=== PATIENT | female | born 1975 | race Caucasian/White ===

== ENCOUNTER 2020-08-13 23:06 | Emergency (ER) | payer BC, SELFPAY ==
[2020-08-13 23:30] VITALS: BP 151/87; PULSE 106; RESP 20; TEMP 36.4; O2SAT 98; BMI 20.5
--- NOTE | 2020-08-13 23:36 | PC.NURSE ---
at bedside for primary eval.
--- NOTE | 2020-08-13 23:38 | PC.NURSE ---
Pt clarifies that she does not wish to go to a detox, she wants to detox in the ER. Pt states Come on, I've done it before!!! Pt also reports having 3 nips in my purse. Security called for changeover.
--- NOTE | 2020-08-13 23:46 | PC.NURSE ---
This RN at bedside repeatedly reminding pt to wear her mask while she is in the ER in a lu bed. solid waste collector aware.
--- NOTE | 2020-08-14 00:07 | ED.ALCOHOL ---
HPI - Alcohol General Chief Complaint: ETOH/Substance Use Stated Complaint: etoh/detox Time Seen by Provider: 08/14/20 00:07 Source: patient Mode of arrival: ambulatory Limitations: no limitations History of Present Illness HPI narrative: history of alcohol abuse here drunk denies any suicidal been to detox multiple times complaint: alcohol intoxication Last drink: Hours (ago) Amount of alcohol consumed: unknown amount of [place] Chronic alcohol use: Yes Previous visits for alcohol intoxication: Yes Recent trauma: No Associated symptoms: denies other symptoms Treatments prior to arrival: none Related Data Allergies Allergy/AdvReac Type Severity Reaction Status Date / Time No Known Allergies Allergy Unverified 07/17/20 15:46 [No Known Allergies*] Review of Systems Review of Systems: REVIEW OF SYSTEMS: Pertinent positives and negatives are stated above in the history. GEN: no fevers, chills, fatigue HEENT: no nasal congestion, sore throat, ear pain NEURO: no headache, dizziness, focal weakness PULM: no cough, shortness of breath CV: no chest pain, palpitations, LE edema ABD: no abdominal pain, nausea, vomiting, diarrhea : no dysuria, urgency, frequency SKIN: no rash ROS otherwise negative x 10 PMFSH Past Medical History Medical History Alcoholic cirrhosis Anxiety Depression Social History Social History Advance Directives: No Advance Directives Information Provided: No Physical Exam Vital Signs: Vital Signs: Vital Signs Temp Pulse Resp BP Pulse Ox 08/13/20 23:30 97.5 F 106 H 20 151/87 H 98 Body Mass Index 20.5 Appearance: Alert. Oriented X3. No acute distress. Eyes: Pupils equal, round and reactive to light. etoh+ ENT: Pharynx normal. Neck: Normal inspection. Neck supple. CVS: Normal heart rate and rhythm. Pulses normal. Respiratory: No respiratory distress. Breath sounds normal. Abdomen: Soft and nontender. Skin: Skin warm and dry. Normal skin color. Normal skin turgor. Extremities: No lower extremity edema. Good range of movement Neuro: Oriented X 3. No motor deficit. No sensory deficit. Course Course Course Narrative: patient intoxicated but able to ambulate in a steady gait refuse any detox placement at this time will go home and follow-up as outpatient Discharge Plan Discharge Clinical Impression: Alcoholic intoxication Patient Disposition: Home, Self-Care Instructions: Abuse of Alcohol (ED) Additional Instructions: follow-up with detox
--- NOTE | 2020-08-14 00:29 | PC.NURSE ---
Pt requesting DC, ambulating to the bathroom with a steady gait. This RN and MD explaining to pt that she cannot detox in the ED. Pt offered detox facilities multiple times but states I've been to all of them, I've done everything! This RN and extension supervisor Pat repeatedly explaining the plan to pt. Pt requesting a RX for Librium. This RN adn extension supervisor Pat explaining to pt that withdrawals and Librium need to be closely monitored in a detox facility. Pt remains unwilling to go to detox. Pt advised to return to the ED if she is agreeable to detox placement. Pt provided with DC instructions.
== END 2020-08-14 00:34 | disposition home or self-care (01) ==
PROVIDERS: Emergency Provider Internal Medicine; PCP Internal Medicine
DX: F10.129 Alcohol abuse with intoxication, unspecified (principal); Y90.9 Presence of alcohol in blood, level not specified
CPT/HCPCS: 99283

== ENCOUNTER → 2020-08-27 08:37 | Outpatient (BNVA) | payer BC, MEDICARE, SELFPAY | PROVIDERS: PCP Internal Medicine; Referring Provider Internal Medicine; Visit Provider Internal Medicine Gastroenterology | DX: K76.9 Liver disease, unspecified (principal); F10.10 Alcohol abuse, uncomplicated; F12.90 Cannabis use, unspecified, uncomplicated; F41.9 Anxiety disorder, unspecified; F17.210 Nicotine dependence, cigarettes, uncomplicated ==

== ENCOUNTER → 2020-10-08 09:02 | Outpatient (BNVA) | payer BC, MEDICARE, SELFPAY | PROVIDERS: PCP Internal Medicine; Referring Provider Internal Medicine; Visit Provider Internal Medicine Gastroenterology | DX: K76.9 Liver disease, unspecified (principal); F41.9 Anxiety disorder, unspecified; F17.200 Nicotine dependence, unspecified, uncomplicated; F12.90 Cannabis use, unspecified, uncomplicated; F10.10 Alcohol abuse, uncomplicated | CPT/HCPCS: 80305; 90686 ==

== ENCOUNTER → 2020-10-22 11:35 | Outpatient (BNVA) | payer BC, MEDICARE, SELFPAY | PROVIDERS: Visit Provider Internal Medicine | DX: Z76.89 Persons encountering health services in other specified circumstances (principal) ==

== ENCOUNTER 2020-11-04 13:27 | Outpatient (REF) | payer BC, MEDICARE, SELFPAY ==
[2020-11-04 14:15] LABS: MANUAL DIFF FLAG NO
[2020-11-04 14:21] LABS: Basophils Absolute Auto 0.1 X10*3/uL (0.0-0.2); Basophils Percent Auto 1.1 % (0-2); Eosinophils Absolute Auto 0.6 X10*3/uL (0.0-0.4); Eosinophils Percent Auto 6.8 % (0-4); Hematocrit 42.4 % (37-47); Hemoglobin 14.1 g/dl (12.0-16.0); Imm Gran Abs Auto 0.02 X10*3/uL (0.00-0.03); Imm Gran Pct Auto 0.2 % (0.0-0.4); Lymphocytes Percent Auto 35.9 % (20-40); Mean Corpuscular HGB Conc 33.3 g/dl (31.0-35.0); Mean Corpuscular Hemoglobin 31.8 pg (27.0-33.0); Mean Corpuscular Volume 95.5 fL (80-98); Mean Platelet Volume 10.8 fL (9.4-12.3); Monocytes Absolute Auto 0.5 X10*3/uL (0.1-1.2); Monocytes Percent Auto 6.3 % (2-11); Neutrophils Absolute Auto 4.1 X10*3/uL (2.0-8.3); Neutrophils Percent Auto 49.7 % (45-73); Platelet Count 259 X10*3/uL (160-400); Red Blood Count 4.44 X10*6/uL (4.20-5.50); White Blood Count 8.3 X10*3/uL (4.8-10.8)
[2020-11-04 14:30] LABS: Prothrombin Time 11.7 SEC (10.8-13.0)
[2020-11-04 14:52] LABS: Alanine Aminotransferase 18 U/L (0-31); Albumin Level 4.6 g/dL (3.5-5.0); Alkaline Phosphatase 123 U/L (39-117); Anion Gap 18 (12-20); Aspartate Amino Transferase 26 U/L (5-31); Bilirubin Total 0.3 mg/dL (0.0-1.0); Blood Urea Nitrogen 12 mg/dL (9-16); Calcium 9.9 mg/dL (8.4-10.2); Carbon Dioxide 28 mmol/L (22-29); Chloride 99 mmol/L (96-108); Estimated Glomerular Filt Rate > 60; Gamma Glutamyl Transpeptidase 46 U/L (7-33); Glucose Random 102 mg/dL (60-115); Magnesium 2.1 mg/dL (1.6-2.6); Potassium 4.5 mmol/l (3.3-5.1); Sodium 140 mmol/L (135-145); Total Protein 8.3 g/dL (6.5-8.0)
[2020-11-04 15:12] LABS: Vitamin D 25-OH Total 45.8 ng/mL (>30)
[2020-11-09 10:23] LABS: Vitamin B1 13 nmol/L (8-30)
== END 2020-11-04 13:28 | disposition home or self-care (01) ==
LOC: HO.LAB 13:27
PROVIDERS: PCP Internal Medicine; Visit Provider Internal Medicine Gastroenterology
DX: K76.9 Liver disease, unspecified (principal); F10.10 Alcohol abuse, uncomplicated
CPT/HCPCS: 36415; 80053; 82306; 82977; 83735; 84425; 85025; 85610

== ENCOUNTER → 2020-11-06 10:23 | Outpatient (BNVA) | payer BC, MEDICARE, SELFPAY | PROVIDERS: Visit Provider Internal Medicine | DX: F10.20 Alcohol dependence, uncomplicated (principal) | CPT/HCPCS: 80305; 96372 ==

== ENCOUNTER → 2020-11-20 10:11 | Outpatient (BNVA) | payer BC, MEDICARE, SELFPAY | PROVIDERS: Visit Provider Nurse Practitioner Psychiatric/Mental Health | DX: Z51.81 Encounter for therapeutic drug level monitoring (principal) ==

== ENCOUNTER → 2020-12-05 12:58 | Outpatient (BNVA) | payer BC, SELFPAY | PROVIDERS: Visit Provider Internal Medicine | DX: F10.10 Alcohol abuse, uncomplicated (principal) | CPT/HCPCS: 80305; 96372 ==

== ENCOUNTER 2020-12-18 08:43 | Outpatient (REF) | payer BC, SELFPAY | END 2020-12-18 08:44 | disposition home or self-care (01) | LOC: HO.LAB 08:43 | PROVIDERS: PCP Internal Medicine; Visit Provider Internal Medicine | DX: Z20.822 Contact with and (suspected) exposure to COVID-19 (principal) | CPT/HCPCS: 36415; C9803; U0003; U0005 ==

== ENCOUNTER → 2021-01-07 11:20 | Outpatient (BNVA) | payer BC, SELFPAY | PROVIDERS: PCP Internal Medicine; Visit Provider Internal Medicine | DX: F11.99 Opioid use, unspecified with unspecified opioid-induced disorder (principal); Z51.81 Encounter for therapeutic drug level monitoring; Z79.899 Other long term (current) drug therapy | CPT/HCPCS: 80305; 96372 ==

== ENCOUNTER 2021-01-12 12:43 | Outpatient (REF) | payer BC, SELFPAY ==
--- NOTE | ~2021-01-12 | XR_ITS ---
EXAMINATION: XR ANKLE, LEFT CLINICAL INFORMATION: Pain COMPARISON: None TECHNIQUE: AP, lateral, and mortise views of the left ankle. FINDINGS: Bone alignment is normal. No fracture or dislocation is seen. The ankle mortise is normal. There is lateral soft tissue swelling. XR/XR ankle LT min 3V IMPRESSION: Lateral soft tissue swelling. No fracture or dislocation seen.
== END 2021-01-12 12:44 | disposition home or self-care (01) ==
LOC: HO.HMGCX 12:43
PROVIDERS: PCP Internal Medicine; Visit Provider Hospitalist
DX: M25.572 Pain in left ankle and joints of left foot (principal)
CPT/HCPCS: 73610

== ENCOUNTER → 2021-02-18 09:23 | Outpatient (BNVA) | payer BC, SELFPAY | PROVIDERS: Visit Provider Internal Medicine | DX: Z51.81 Encounter for therapeutic drug level monitoring (principal); F10.10 Alcohol abuse, uncomplicated | CPT/HCPCS: 80305; 96372 ==

== ENCOUNTER → 2021-03-18 11:17 | Outpatient (BNVA) | payer BC, SELFPAY | PROVIDERS: Visit Provider Internal Medicine | DX: F10.21 Alcohol dependence, in remission (principal) | CPT/HCPCS: 96372 ==

== ENCOUNTER 2021-03-23 08:53 | Outpatient (REF) | payer BC, SELFPAY ==
--- NOTE | ~2021-03-23 | US_ITS ---
EXAMINATION: US ABDOMEN LIMITED CLINICAL INFORMATION: Liver disease, unspecified. COMPARISON: CT abdomen and pelvis with contrast dated 11/28/2017. Ultrasound abdomen complete dated 04/08/2016 and 12/05/2014. MR abdomen without and with contrast dated 02/26/2015. X-ray abdomen dated 01/31/2015. TECHNIQUE: Real-time imaging of the right upper quadrant abdominal viscera. FINDINGS: PANCREAS: The head and body the pancreas are normal. The tail is not well visualized due to bowel gas. LIVER: Liver echotexture is increased and slightly heterogeneous suggestive of hepatocellular disease. The contour of the liver is slightly irregular questionable for mild cirrhotic change. No focal hepatic lesion. There is no intrahepatic biliary duct dilatation seen. GALLBLADDER: Normal. The gallbladder is physiologically distended without evidence of stones, sludge, polyps, wall thickening or pericholecystic fluid. COMMON BILE DUCT: Normal in caliber measuring 0.3 cm in diameter. RIGHT KIDNEY: Normal. No hydronephrosis. No renal calculi or focal parenchymal lesions. The kidney measures 9.8 cm in maximum dimension. FREE FLUID: None. US/US abdomen limited IMPRESSION: Mild cirrhotic changes of the liver. Limited visualization of the tail the pancreas.
== END 2021-03-23 08:54 | disposition home or self-care (01) ==
LOC: HO.US 08:53
PROVIDERS: PCP Pediatrics Adolescent Medicine; Visit Provider Internal Medicine Gastroenterology
DX: K76.9 Liver disease, unspecified (principal)
CPT/HCPCS: 76705

== ENCOUNTER → 2021-04-06 09:35 | Outpatient (BNVA) | payer BC, SELFPAY | PROVIDERS: PCP Internal Medicine; Visit Provider Internal Medicine Gastroenterology ==

== ENCOUNTER 2021-04-08 11:40 | Outpatient (REF) | payer BC, SELFPAY ==
[2021-04-08 12:25] LABS: MANUAL DIFF FLAG NO
[2021-04-08 12:26] LABS: Basophils Absolute Auto 0.1 X10*3/uL (0.0-0.2); Basophils Percent Auto 0.7 % (0-2); Eosinophils Absolute Auto 0.3 X10*3/uL (0.0-0.4); Hematocrit 39.2 % (37-47); Imm Gran Abs Auto 0.03 X10*3/uL (0.00-0.03); Imm Gran Pct Auto 0.4 % (0.0-0.4); Lymphocytes Absolute Auto 2.9 X10*3/uL (1.2-4.9); Lymphocytes Percent Auto 35.8 % (20-40); Mean Corpuscular HGB Conc 33.2 g/dl (31.0-35.0); Mean Corpuscular Hemoglobin 33.2 pg (27.0-33.0); Monocytes Absolute Auto 0.5 X10*3/uL (0.1-1.2); Monocytes Percent Auto 6.7 % (2-11); Neutrophils Absolute Auto 4.2 X10*3/uL (2.0-8.3); Neutrophils Percent Auto 52.4 % (45-73); Platelet Count 202 X10*3/uL (160-400); Red Blood Count 3.92 X10*6/uL (4.20-5.50); Red Cell Distribution Width 12.8 % (11.0-16.0); White Blood Count 8.1 X10*3/uL (4.8-10.8)
[2021-04-08 12:32] LABS: Prothrombin Time 12.3 SEC (10.8-13.0)
[2021-04-08 13:00] LABS: Alanine Aminotransferase 17 U/L (0-31); Albumin Level 4.2 g/dL (3.5-5.0); Alkaline Phosphatase 106 U/L (39-117); Anion Gap 12 (12-20); Aspartate Amino Transferase 23 U/L (5-31); Bilirubin Total 0.2 mg/dL (0.0-1.0); Blood Urea Nitrogen 17 mg/dL (9-16); Calcium 9.5 mg/dL (8.4-10.2); Carbon Dioxide 22 mmol/L (22-29); Chloride 107 mmol/L (96-108); Cholesterol 266 mg/dL; Estimated Glomerular Filt Rate > 60; Glucose Random 85 mg/dL (60-115); HDL Cholesterol 49 mg/dL; LDL Cholesterol Calculated 187 mg/dl; Potassium 3.8 mmol/L (3.3-5.1); Sodium 137 mmol/L (135-145); Total Protein 7.1 g/dL (6.5-8.0); Triglycerides 153 mg/dL
[2021-04-08 13:19] LABS: HBS Num1 0.29 mIU/mL (0-7.99); Hepatitis A Antibody IgM 0.22 Index (0-0.79); ~Hepatitis A Antibody IgM Nonreactive (Nonreactive); ~Hepatitis B Surface Antibody NONREACTIVE (Nonreactive)
[2021-04-08 13:24] LABS: TSH reflex Free T4 0.73 uIU/mL (0.32-4.0); Vitamin D 25-OH Total 38.8 ng/mL (>30)
[2021-04-08 13:36] LABS: Folate 10.6 ng/mL (> or = 4.0); Vitamin B12 640 pg/mL (200-900)
[2021-04-08 13:50] LABS: HBc Num1 0.07 S/CO (0.00-0.79); HBsAGNum1 0.24 S/CO (0.00-0.99); Hepatitis B Core Antibody Nonreactive (Nonreactive); Hepatitis B Surface Antigen Negative (Negative); ~HepC Num1 0.08 S/CO (0.00-0.79); ~Hepatitis C Antibody Nonreactive (Nonreactive)
[2021-04-08 14:36] LABS: Ferritin 25 ng/mL (10-250)
[2021-04-09 18:26] LABS: Alpha 1 Anti-trypsin 140 mg/dL (83-199)
[2021-04-09 21:16] LABS: Immunoglobulin G 1128 mg/dL (600-1640)
[2021-04-10 12:16] LABS: Anti Nuclear Antibody Screen NEGATIVE (NEGATIVE)
[2021-04-11 07:17] LABS: Zinc 66 mcg/dL (60-130)
[2021-04-11 13:46] LABS: Soluble Liver Ag Autoantibody <20.1 U (0.0-20.0)
[2021-04-11 13:46] LABS: Vitamin B6 7.1 ng/mL (2.1-21.7)
[2021-04-11 20:57] LABS: Vitamin K1 557 pg/mL (130-1500)
[2021-04-11 23:02] LABS: Vitamin C 0.8 mg/dL (0.3-2.7)
[2021-04-13 13:26] LABS: Transglutaminase Ab IgG 1 U/mL; Transglutaminase IgA 1 U/mL
[2021-04-13 15:27] LABS: Vitamin A 49 mcg/dL (38-98)
[2021-04-13 15:27] LABS: Alpha-Tocopherol 22.1 mg/L (5.7-19.9); Beta-Gamma Tocopherol 1.3 mg/L (<=4.3); Vitamin B5 (Pantothenic Acid) 40 ng/mL (<275)
[2021-04-13 15:52] LABS: Mitochondrial Antibodies NEGATIVE (NEGATIVE)
[2021-04-13 17:32] LABS: Nicotinamide <20 ng/mL; Vit B3 - Nicotinic Acid <20 ng/mL
[2021-04-13 22:22] LABS: Smooth Muscle Antibody <20 U (<20)
== END 2021-04-08 11:41 | disposition home or self-care (01) ==
LOC: HO.LAB 11:40
PROVIDERS: PCP Internal Medicine; Visit Provider Internal Medicine Gastroenterology
DX: F10.10 Alcohol abuse, uncomplicated (principal); K76.9 Liver disease, unspecified; G89.29 Other chronic pain; R10.33 Periumbilical pain; R79.82 Elevated C-reactive protein (CRP); K75.81 Nonalcoholic steatohepatitis (NASH); K52.839 Microscopic colitis, unspecified
CPT/HCPCS: 36415; 80053; 80061; 82103; 82180; 82306; 82550; 82607; 82728; 82746; 82784; 83516; 83520; 84207; 84443; 84446; 84590; 84591; 84597; 84630; 85025; 85610; 86038; 86039; 86255; 86256; 86704; 86706; 86709; 86803; 87340

== ENCOUNTER 2021-05-01 11:14 | Outpatient (REF) | payer BC, SELFPAY ==
[2021-05-01 13:14] LABS: Fibrinogen 440 MG/DL (259-690); INTERNATIONAL NORM RATIO 0.9 (0.9-1.1); Prothrombin Time 10.7 SEC (9.9-13.0)
[2021-05-01 13:16] LABS: Partial Thromboplastin Time 37.1 SEC (24.1-38.0)
== END 2021-05-01 11:15 | disposition home or self-care (01) ==
LOC: HO.LAB 11:14
PROVIDERS: PCP Internal Medicine; Visit Provider Internal Medicine
DX: R23.8 Other skin changes (principal)
CPT/HCPCS: 36415; 85384; 85610; 85730

== ENCOUNTER 2021-05-17 21:05 | Emergency (ER) | payer BC, SELFPAY ==
[2021-05-17 21:25] VITALS: BP 170/90; PULSE 121; O2SAT 95
[2021-05-17 21:37] VITALS: BP 131/86; PULSE 103; RESP 16; TEMP 36.6; O2SAT 97; BMI 19.7
--- NOTE | 2021-05-17 21:40 | PC.NURSE ---
This nurse witnessed leave facility with three pill bottles: b-1, xanax and fluoxetine
--- NOTE | 2021-05-17 21:46 | ED.GENADULT ---
HPI - General Adult General Chief complaint: Overdose Stated complaint: etoh Time Seen by Provider: 05/17/21 21:45 Source: patient Mode of arrival: EMS History of Present Illness HPI narrative: 45-year-old female with liver disease and history of alcohol dependence is brought in by EMS after patient states that she took 10 Flexeril pills, 4 -1 mg diazepam, and 3 Prozac during attention to the fact that she needs detox from alcohol. Patient states that she was 5 years sober and then began drinking again approximately 1 year ago and has been in a detox program last April but since that time states that she consistently consumes 10-12 minutes daily, occasional marijuana, but denies any other illicit substance use and is a daily smoker. She denies being suicidal and does report that she has had prior seizures and hallucinations from attempting to detox on her own. She is unable to identify a specific event that has prompted this drive for detox other than she feels like she is beginning to develop ascites as well as easy bruising. Related Data Home Medications Medication Instructions Recorded Confirmed naltrexone microspheres 380 mg 380 mg IM Q4W 02/18/21 04/27/21 intramuscular suspension,extended release fluoxetine 20 mg capsule 20 mg PO DAILY 04/06/21 04/27/21 Previous Rx's Medication Instructions Recorded alprazolam 1 mg tablet 1 mg PO TID PRN 28 Days #86 tab 04/27/21 Allergies Allergy/AdvReac Type Severity Reaction Status Date / Time No Known Allergies Allergy Verified 05/17/21 21:42 [No Known Allergies*] Review of Systems Review of Systems: Pertinent positives and negatives as stated in HPI 10 point review of systems is otherwise negative. [facility] Past Medical History Source: nursing notes reviewed Medical History Alcohol abuse Alcohol use disorder Alcoholic cirrhosis Anxiety Anxiety Chronic liver disease Depression Easy bruising Marijuana smoker Tobacco use disorder Surgical History History of colonoscopy Hx of endoscopy Family History Family History Father No problems noted. Mother No problems noted. Social History Social History Housing: House Alcohol intake: current Alcohol intake frequency: 3 or more drinks per day Alcohol type: hard liquor Patient Tobacco Use Status: Current everyday Tobacco user Cigarettes Per Day: 12 Use of substances other than those prescribed or required for medical reasons: No Substance Use Type: Marijuana Advance Directives: No Advance Directives Information Provided: No Healthcare Proxy: Yes (On file in previous medical record, [facility]) Guardian: No Current occupational status: unemployed Physical Exam Vital Signs: Vital Signs: Last Vital Signs Temp 97.9 F 05/17/21 21:37 Pulse 103 H 05/17/21 21:37 Resp 16 05/17/21 21:37 BP 131/86 05/17/21 21:37 Pulse Ox 97 05/17/21 21:37 Body Mass Index 19.7 VITAL SIGNS: Reviewed. GENERAL: Well developed, well nourished, in no acute distress. HEAD: Normocephalic/atraumatic EYES: PERRLA, EOMI EARS: Ext canals without abnormality, no TM bulging/redness NOSE: Nares patent bilateral OROPHARYNX: no oral lesions noted, posterior pharynx with petechiae and appears to be some blood on the right NECK: Supple, + adenopathy at right anterior cervical chain LUNGS: Normal breath sounds. No adventitious sounds or accessory muscle use. SpO2<97> CARDIOVASCULAR: Regular rate and rhythm without noted murmurs, no JVD or lower extremity edema. ABDOMEN: Soft, non-tender, non-distended with bowel sounds. MUSCULOSKELETAL: No tenderness, deformities, or effusions noted on gross inspection. EXTREMITIES: No cyanosis, clubbing or edema. SKIN: Inspection of the skin reveals no rashes, but scattered ecchymoses NEUROLOGIC: Alert and oriented x 4. Strength and sensation to light touch were grossly intact x 4. Course Course Course Narrative: 45-year-old female with alcohol dependency. Patient is not suicidal and although she did take additional medications on pill counts completed by nursing staff there was limited corroboration. Review of all investigations negative for acute findings, LFTs consistent with patient's history of alcohol consumption, patient is otherwise medically optimized for evaluation by the crisis team. After crisis evaluated patient, it is thought after this evaluation that patient is low risk for suicidal ideation. The plan is for patient to be evaluated in the morning for inpatient placement. Reevaluation(s) Reevaluation #1: Patient placed in physician observation because the patient needed more time for crisis evaluation. At the time observation was started the patient's vital signs were stable, patient is alert and oriented, neuro: Nonfocal, CV RRR, lungs clear Time: 00:02 Medical Decision Making Lab Data Result diagrams: 05/17/21 22:10 05/17/21 22:10 Labs: Lab Results 05/17/21 05/17/21 05/17/21 Range/Units 22:10 22:10 22:10 WBC 8.2 (4.8-10.8) X10*3/uL RBC 3.84 L (4.20-5.50) X10*6/uL Hgb 13.1 (12.0-16.0) g/dl Hct 38.0 (37-47) % MCV 99.0 H (80-98) fL MCH 34.1 H (27.0-33.0) pg MCHC 34.5 (31.0-35.0) g/dl RDW 15.0 (11.0-16.0) % Plt Count 221 (160-400) X10*3/uL MPV 10.4 (9.4-12.3) fL Immature Gran % (Auto) 0.5 H (0.0-0.4) % Neut % (Auto) 50.0 (45-73) % Lymph % (Auto) 38.1 (20-40) % [place] % (Auto) 6.4 (2-11) % Eos % (Auto) 4.0 (0-4) % Baso % (Auto) 1.0 (0-2) % Lymph # (Auto) 3.1 (1.2-4.9) X10*3/uL [place] # (Auto) 0.5 (0.1-1.2) X10*3/uL Eos # (Auto) 0.3 (0.0-0.4) X10*3/uL Baso # (Auto) 0.1 (0.0-0.2) X10*3/uL Abs Immat Gran (auto) 0.04 H (0.00-0.03) X10*3/uL Absolute Neuts (auto) 4.1 (2.0-8.3) X10*3/uL Absolute Nucleated RBC 0.000 (0.0-0.012) X10*3/uL Nucleated RBC % (auto) 0.0 (0.0-0.2) /100WBC PT 10.8 (9.9-13.0) SEC INR 1.0 (0.9-1.1) Sodium 146 H (135-145) mmol/L Potassium 4.0 (3.3-5.1) mmol/L Chloride 109 H (96-108) mmol/L Carbon Dioxide 27 (22-29) mmol/L Anion Gap 14 (12-20) BUN 16 (9-16) mg/dL Creatinine 0.91 (0.5-1.4) mg/dL Estim Creat Clear Calc 62.9 Estimated GFR > 60 Random Glucose 97 (60-115) mg/dL Calcium 9.6 (8.4-10.2) mg/dL Magnesium (1.6-2.6) mg/dL Total Bilirubin 0.2 (0.0-1.0) mg/dL AST 151 H (5-31) U/L ALT 118 H (0-31) U/L Alkaline Phosphatase 168 H D (39-117) U/L Total Protein 8.3 H (6.5-8.0) g/dL Albumin 4.8 (3.5-5.0) g/dL Ethyl Alcohol mg/dL COVID-19 (ANTONIO) (Negative) COVID-19 Clin Com S. pyogenes GrpA DAYANARA (Negative) 05/17/21 05/17/21 05/17/21 Range/Units 22:10 22:10 23:55 WBC (4.8-10.8) X10*3/uL RBC (4.20-5.50) X10*6/uL Hgb (12.0-16.0) g/dl Hct (37-47) % MCV (80-98) fL MCH (27.0-33.0) pg MCHC (31.0-35.0) g/dl RDW (11.0-16.0) % Plt Count (160-400) X10*3/uL MPV (9.4-12.3) fL Immature Gran % (Auto) (0.0-0.4) % Neut % (Auto) (45-73) % Lymph % (Auto) (20-40) % [place] % (Auto) (2-11) % Eos % (Auto) (0-4) % Baso % (Auto) (0-2) % Lymph # (Auto) (1.2-4.9) X10*3/uL [place] # (Auto) (0.1-1.2) X10*3/uL Eos # (Auto) (0.0-0.4) X10*3/uL Baso # (Auto) (0.0-0.2) X10*3/uL Abs Immat Gran (auto) (0.00-0.03) X10*3/uL Absolute Neuts (auto) (2.0-8.3) X10*3/uL Absolute Nucleated RBC (0.0-0.012) X10*3/uL Nucleated RBC % (auto) (0.0-0.2) /100WBC PT (9.9-13.0) SEC INR (0.9-1.1) Sodium (135-145) mmol/L Potassium (3.3-5.1) mmol/L Chloride (96-108) mmol/L Carbon Dioxide (22-29) mmol/L Anion Gap (12-20) BUN (9-16) mg/dL Creatinine (0.5-1.4) mg/dL Estim Creat Clear Calc Estimated GFR Random Glucose (60-115) mg/dL Calcium (8.4-10.2) mg/dL Magnesium 2.2 (1.6-2.6) mg/dL Total Bilirubin (0.0-1.0) mg/dL AST (5-31) U/L ALT (0-31) U/L Alkaline Phosphatase (39-117) U/L Total Protein (6.5-8.0) g/dL Albumin (3.5-5.0) g/dL Ethyl Alcohol 248 mg/dL COVID-19 (ANTONIO) (Negative) COVID-19 Clin Com S. pyogenes GrpA DAYANARA Negative (Negative) 05/17/21 Range/Units 23:55 WBC (4.8-10.8) X10*3/uL RBC (4.20-5.50) X10*6/uL Hgb (12.0-16.0) g/dl Hct (37-47) % MCV (80-98) fL MCH (27.0-33.0) pg MCHC (31.0-35.0) g/dl RDW (11.0-16.0) % Plt Count (160-400) X10*3/uL MPV (9.4-12.3) fL Immature Gran % (Auto) (0.0-0.4) % Neut % (Auto) (45-73) % Lymph % (Auto) (20-40) % [place] % (Auto) (2-11) % Eos % (Auto) (0-4) % Baso % (Auto) (0-2) % Lymph # (Auto) (1.2-4.9) X10*3/uL [place] # (Auto) (0.1-1.2) X10*3/uL Eos # (Auto) (0.0-0.4) X10*3/uL Baso # (Auto) (0.0-0.2) X10*3/uL Abs Immat Gran (auto) (0.00-0.03) X10*3/uL Absolute Neuts (auto) (2.0-8.3) X10*3/uL Absolute Nucleated RBC (0.0-0.012) X10*3/uL Nucleated RBC % (auto) (0.0-0.2) /100WBC PT (9.9-13.0) SEC INR (0.9-1.1) Sodium (135-145) mmol/L Potassium (3.3-5.1) mmol/L Chloride (96-108) mmol/L Carbon Dioxide (22-29) mmol/L Anion Gap (12-20) BUN (9-16) mg/dL Creatinine (0.5-1.4) mg/dL Estim Creat Clear Calc Estimated GFR Random Glucose (60-115) mg/dL Calcium (8.4-10.2) mg/dL Magnesium (1.6-2.6) mg/dL Total Bilirubin (0.0-1.0) mg/dL AST (5-31) U/L ALT (0-31) U/L Alkaline Phosphatase (39-117) U/L Total Protein (6.5-8.0) g/dL Albumin (3.5-5.0) g/dL Ethyl Alcohol mg/dL COVID-19 (ANTONIO) Negative (Negative) COVID-19 Clin Com See Note S. pyogenes GrpA DAYANARA (Negative) ECG Data Attestation: I personally reviewed and interpreted this ECG as follows: Prior ECG tracings: available for review (12/09/2017 no acute changes on comparison) Interpretation: Sinus tachycardia, HR-108, no STEMI, SC/QRS/QTC are within normal limits. Discharge Plan Discharge Prescriptions: No Action alprazolam 1 mg tablet 1 mg PO TID PRN (Reason: anxiety) 28 Days Qty: 86 RF: 0 Vivitrol 380 mg suspension,extended rel recon 380 mg IM Q4W RF: 0 fluoxetine 20 mg capsule 20 mg PO DAILY RF: 0
--- NOTE | 2021-05-17 21:47 | ECG_ITS ---
Test Reason : OVERDOSE Blood Pressure : / mmHG Vent. Rate : 108 BPM Atrial Rate : 108 BPM P-R Int : 180 ms QRS Dur : 072 ms QT Int : 314 ms P-R-T Axes : 066 009 049 degrees QTc Int : 420 ms Sinus tachycardia Normal ECG When compared with ECG of 09-DEC-2017 07:52, No significant change was found Referred By: Annalisa Darden Electronically Signed By:SIMONE PINTO MD
[2021-05-17 22:15] LABS: MANUAL DIFF FLAG NO
[2021-05-17 22:16] LABS: Basophils Absolute Auto 0.1 X10*3/uL (0.0-0.2); Eosinophils Absolute Auto 0.3 X10*3/uL (0.0-0.4); Hemoglobin 13.1 g/dl (12.0-16.0); Imm Gran Abs Auto 0.04 X10*3/uL (0.00-0.03); Imm Gran Pct Auto 0.5 % (0.0-0.4); Lymphocytes Absolute Auto 3.1 X10*3/uL (1.2-4.9); Lymphocytes Percent Auto 38.1 % (20-40); Mean Corpuscular HGB Conc 34.5 g/dl (31.0-35.0); Mean Corpuscular Hemoglobin 34.1 pg (27.0-33.0); Mean Platelet Volume 10.4 fL (9.4-12.3); Monocytes Absolute Auto 0.5 X10*3/uL (0.1-1.2); Monocytes Percent Auto 6.4 % (2-11); Neutrophils Absolute Auto 4.1 X10*3/uL (2.0-8.3); Platelet Count 221 X10*3/uL (160-400); Red Blood Count 3.84 X10*6/uL (4.20-5.50); White Blood Count 8.2 X10*3/uL (4.8-10.8)
[2021-05-17 22:27] LABS: Prothrombin Time 10.8 SEC (9.9-13.0)
[2021-05-17 22:48] LABS: Ethanol 248 mg/dL
[2021-05-17 22:49] LABS: Magnesium 2.2 mg/dL (1.6-2.6)
[2021-05-17 22:52] LABS: Alanine Aminotransferase 118 U/L (0-31); Albumin Level 4.8 g/dL (3.5-5.0); Alkaline Phosphatase 168 U/L (39-117); Anion Gap 14 (12-20); Aspartate Amino Transferase 151 U/L (5-31); Bilirubin Total 0.2 mg/dL (0.0-1.0); Blood Urea Nitrogen 16 mg/dL (9-16); Calcium 9.6 mg/dL (8.4-10.2); Carbon Dioxide 27 mmol/L (22-29); Chloride 109 mmol/L (96-108); Creatinine Clr Calc Pharmacy 62.9; Estimated Glomerular Filt Rate > 60; Glucose Random 97 mg/dL (60-115); Sodium 146 mmol/L (135-145); Total Protein 8.3 g/dL (6.5-8.0)
--- NOTE | 2021-05-17 22:55 | MHC.CARE ---
CARE team consult received. Given the nature of pt's arrival to the ED, she will require a full behavioral health evaluation. BAL is 248 at 2210. Pt is a long time drinker and given this information, this singer songwriter will meet with pt to complete assessment ~1:30am. Message left for pt's to obtain background and present concerns. Chart reviewed, assessment started.
--- NOTE | 2021-05-17 23:02 | PC.NURSE ---
PATIENT'S SHOWING UP IN THE WAITING ROOM, DEMANDING TO SEE HIS , THEN STATING I UNDERSTANDING I CAN'T SEE HERE RIGHT NOW BECAUSE YOU GUYS ARE DOING THINGS. I WILL COME BACK IN THE MORNING , THEN LOOKING AT THIS NURSES WHY THE FUCK ARE YOU KEEPING MY FROM ME I AM TAKING HER FROM HERE EXPLAINING THAT SHE CAN'T LEAVE AND NEEDS TO BE SEEN BY CRISIS. THEN LAUGHING STATING I GET IT SHE NEEDS TO SEE PEOPLE, I WILL COME BACK IN THE MORNING HANDING A PILL BOTTLE TO THIS RN, IT WAS FLEXIRIL WITH A FEW PILLS LEFT IN THE BOTTLE, TELLING THIS RN TO HOLD ON TO IT FOR HIM, STATING I CAN NOT HOLD ON TO PILLS FOR HIM. HANDING THE PILL BOTTLE BACK TO . STATING SHE JUST GOING TO WALK OUT EXPLAINING PROCEDURE FOR CRISIS, HE VERBALIZED UNDERSTANDING THEN STATING I AM TAKING HER NOW . AGAIN EXPLAINING PATIENT NEEDS TO BE MEDICALLY CLEARED AND HAVE A CRISIS EVAL. I WILL BE BACK IN THE MORNING , ASKING IF WANTING TO LEAVE HIS NUMBER, STATED YOU HAVE MY INSURANCE NUMBER AND HERS BUT I WILL GIVE IT TO YOU AGAIN STATING THAT WAS NOT NECESSARY. THEN ASKING WHAT STAFF WANTS FOR COFFEE IN THE AM. LEAVING THE WAITING ROOM AFTER ABOUT 15 MINUTES OF ARGUING THEN TANKING THIS NURSE BACK AND FORTH. DID NOT SEEM SOBER BASED ON HIS ODD BEHAVIOR.
--- NOTE | 2021-05-17 23:23 | PC.NURSE ---
plan for Lorna from CARE team to see patient at [phone]
[2021-05-18 00:11] LABS: Strep A Nucleic Acid Negative (Negative)
[2021-05-18 00:19] LABS: COVID-19 Test Negative (Negative); IDNOW Serial# 9DD0AD1C
[2021-05-18] MEDS: Throat Lozenge, Medicated LOZENGE 1 LOZENGE MUCOUS MEM (02:40)
[2021-05-18 05:22] VITALS: BP 113/66; PULSE 93; RESP 17; TEMP 38.1; O2SAT 96
[2021-05-18] MEDS: Acetaminophen 325 MG TABLET 650 MG PO (05:52)
[2021-05-18] MEDS: Acetaminophen 325 MG TABLET PO (05:52)
--- NOTE | 2021-05-18 06:30 | PC.NURSE ---
Pt asleep, this RN not waking patient at this time to reassess suicide risk as rest is most therapeutic at this time. additionally, pt denies SI for CARE team and was cleared from requiring a sitter for SI thoughts. Pt awaiting assistant women's tennis coach this AM. Pt RR even and unlabored, stretcher in low locked position.
--- NOTE | 2021-05-18 08:43 | MHC.RECOVSUP ---
Recovery Support note: Patient is a 45 year old Malian speaking female who presented to [facility] ED after intentionally taking numerous pills however this was not an overdose attempt. Patient reports she took the medications to get attention and to get into detox. Patient was evaluated by The CARE Team and it was determined that this patient does not require psychiatric services and would benefit most from detox. This leader writer met with patient in 6H to discussed alcohol use and treatment options. Patient is accompanied by her of 24 years. This leader writer offered to secure patient a detox bed and patient declined. Patient reports she felt like she needed to come to the hospital and now that she is here she feels she is ready to pursue outpatient options. Patient reports numerous detox admissions, completion of IOP programs, and is familiar with outpatient supports such as AA. This leader writer and ED physician encouraged patient to remain for detox patient and patient continues to decline. Encouraged patient to return to the ED if she begins to experience withdrawal symptoms. Patient acknowledged and reports no questions or concerns at this time.
== END 2021-05-18 09:59 | disposition home or self-care (01) ==
PROVIDERS: Emergency Provider Student in an Organized Health Care Education/Training Program; PCP Internal Medicine
DX: F10.20 Alcohol dependence, uncomplicated (principal); T48.1X1A Poisoning by skeletal muscle relaxants [neuromuscular blocking agents], accidental (unintentional), initial encounter; Y90.9 Presence of alcohol in blood, level not specified; F17.200 Nicotine dependence, unspecified, uncomplicated; Y92.009 Unspecified place in unspecified non-institutional (private) residence as the place of occurrence of the external cause; Z71.6 Tobacco abuse counseling; Z20.822 Contact with and (suspected) exposure to COVID-19; Z79.899 Other long term (current) drug therapy; F12.90 Cannabis use, unspecified, uncomplicated
CPT/HCPCS: 36415; 80053; 82077; 83735; 85025; 85610; 87635; 87651; 93005; 99285

== ENCOUNTER → 2021-08-11 09:09 | Outpatient (BNVA) | payer OTHER, BC, SELFPAY | PROVIDERS: PCP Internal Medicine; Referring Provider Internal Medicine; Visit Provider Internal Medicine Gastroenterology | DX: Z23 Encounter for immunization (principal); K70.30 Alcoholic cirrhosis of liver without ascites; N39.41 Urge incontinence | CPT/HCPCS: 90471; 90472 ==

== ENCOUNTER 2021-08-12 08:27 | Outpatient (RCR) | payer OTHER, SELFPAY | END 2021-08-12 08:28 | disposition home or self-care (01) | LOC: HO.PHPA 08:27 | PROVIDERS: PCP Internal Medicine; Visit Provider Psychiatry & Neurology Psychiatry | DX: F32.9 Major depressive disorder, single episode, unspecified (principal); F41.9 Anxiety disorder, unspecified ==

== ENCOUNTER 2021-09-10 09:38 | Outpatient (REF) | payer OTHER, SELFPAY ==
--- NOTE | ~2021-09-10 | US_ITS ---
EXAMINATION: US ABDOMEN LIMITED WITH LIVER ELASTOGRAPHY CLINICAL INFORMATION: R14.0 - Abdominal distension (gaseous). Prior history unspecified liver disease. COMPARISON: Ultrasound abdomen limited 03/23/2021, ultrasound abdomen complete with elastography liver 07/09/2020 and 11/22/2018. CT abdomen and pelvis with contrast 11/28/2017 TECHNIQUE: Real-time imaging of the abdominal viscera. Noninvasive ultrasound liver fibrosis assessment is performed using Stalin ElastPQ point quantification shear wave elastography (pSWE) with a C5-2 MHz transducer. Multiple elastography samples are obtained. FINDINGS: PANCREAS: The visualized pancreas is normal in size and echogenicity. There is no pancreatic ductal distention or retroperitoneal effusion. The distal body and tail are partly obscured by bowel gas and not completely imaged. LIVER: The liver is normal in size and smooth in contour. The echogenicity appears homogeneous with no focal parenchymal lesion or definite hepatic steatosis. No intrahepatic ductal dilatation. The right lobe measures 16.0 cm in length. The left lobe measures 8.4 cm in length. Portal flow is towards the liver (hepatopetal). Shear wave liver elastography median stiffness is 1.39 m/s (reference: normal median stiffness is 1.3 m/s or less). IQR/median stiffness to assess sampling precision is 0.22 (reference: good quality data set is IQR/median stiffness of 0.15 or less). By comparison, prior liver elastography median stiffness 07/09/2020 is 1.22 m/s (IQR/median 0.72). GALLBLADDER: Normal. The gallbladder is physiologically distended without evidence of stones, sludge, polyps, wall thickening or pericholecystic fluid. COMMON BILE DUCT: Normal in caliber measuring 0.4 cm in diameter. RIGHT KIDNEY: Normal. No hydronephrosis. No focal parenchymal lesions. The kidney measures 10.1 cm in maximum dimension. There are scattered specular echoes in the sinus but without shadowing or twinkling artifact to suggest nonobstructing calculi. FREE FLUID: None. US/US abdomen szymanski w elastography IMPRESSION: 1. Liver normal in size and smooth in contour. No focal parenchymal lesion. Portal flow towards the liver. 2. Liver elastography: Although measurements appear to rule out compensated advanced chronic liver disease, there is mild statistical variability of the sampling which decreases accuracy. 3. No cholelithiasis or ductal dilatation. REFERENCE: Society of Radiologists in Ultrasound Liver Stiffness Thresholds (2020): LIVER STIFFNESS THRESHOLDS: *Liver Stiffness equal or less than 1.3 m/s: High probability of being normal. *Liver Stiffness less than 1.7 m/s: In the absence of other known clinical signs, rules out compensated advanced chronic liver disease. *Liver Stiffness 1.7-2.1 m/s: Suggestive of compensated advanced chronic liver disease but need further test for confirmation. *Liver Stiffness over 2.1 m/s: Rules in compensated advanced chronic liver disease. *Liver Stiffness over 2.4 m/s: Suggestive of clinically significant portal hypertension. QUALITY OF DATA SET: *IQR/Median value equal or less than 0.15 implies a quality data set. *IQR/Median value over 0.15 implies a poor quality data set. SIGNIFICANT CHANGE FROM PRIOR EXAM: Significant change if liver stiffness measurement is 10% or greater from prior exam. OTHER CONSIDERATIONS: The stage of liver fibrosis may be overestimated in the setting of acute hepatitis, liver inflammation, elevated liver function tests, hepatic vascular congestion, obstructive cholestasis, non-fasting state, and infiltrative diseases such as amyloidosis and lymphoma. In some patients with NAFLD, the liver stiffness thresholds for compensated advanced chronic liver disease may be lower. In causes other than viral hepatitis and NAFLD, liver stiffness thresholds are not well established.
== END 2021-09-10 09:39 | disposition home or self-care (01) ==
LOC: HO.US 09:38
PROVIDERS: PCP Internal Medicine; Visit Provider Internal Medicine
DX: K70.30 Alcoholic cirrhosis of liver without ascites (principal); R14.0 Abdominal distension (gaseous)
CPT/HCPCS: 76705; 76981

== ENCOUNTER 2021-09-11 13:16 | Outpatient (REF) | payer OTHER, SELFPAY ==
[2021-09-11 13:20] LABS: MANUAL DIFF FLAG NO
[2021-09-11 14:05] LABS: Basophils Absolute Auto 0.1 X10*3/uL (0.0-0.2); Basophils Percent Auto 0.7 % (0-2); Eosinophils Absolute Auto 0.5 X10*3/uL (0.0-0.4); Eosinophils Percent Auto 4.1 % (0-4); Hematocrit 41.8 % (37.0-47.0); Hemoglobin 14.1 g/dl (12.0-16.0); Imm Gran Abs Auto 0.03 X10*3/uL (0.00-0.03); Imm Gran Pct Auto 0.3 % (0.0-0.4); Lymphocytes Percent Auto 27.2 % (20-40); Mean Corpuscular HGB Conc 33.7 g/dl (31.0-35.0); Mean Corpuscular Hemoglobin 33.2 pg (27.0-33.0); Mean Corpuscular Volume 98.4 fL (80.0-98.0); Mean Platelet Volume 12.5 fL (9.4-12.3); Monocytes Absolute Auto 0.7 X10*3/uL (0.1-1.2); Monocytes Percent Auto 6.8 % (2-11); Neutrophils Absolute Auto 6.6 x10*3/uL (2.0-8.3); Neutrophils Percent Auto 60.9 % (45-73); Platelet Count 216 X10*3/uL (160-400); Red Blood Count 4.25 X10*6/uL (4.20-5.50); Red Cell Distribution Width 12.1 % (11.0-16.0); White Blood Count 10.9 X10*3/uL (4.8-10.8)
[2021-09-11 14:20] LABS: INTERNATIONAL NORM RATIO 1.1 (0.9-1.1); Prothrombin Time 12.5 SEC (9.9-13.0)
[2021-09-11 14:39] LABS: Appearance Urine HAZY; Color Urine YELLOW; Glucose Urine UA NEG (NEG); Leukocyte Esterase Urine NEG (NEG); Nitrite Urine POS (NEG); UACC Culture Trigger YES; Urine Blood NEG (NEG); Urine Ketones 5 MG/DL (NEG); Urine Protein NEG (NEG-TRACE)
[2021-09-11 14:51] LABS: Bacteria Urine 2+ /LPF; RBC Urine 0 /HPF (0)
[2021-09-11 14:53] LABS: Alanine Aminotransferase 32 U/L (0-31); Albumin Level 4.3 g/dL (3.5-5.0); Alkaline Phosphatase 101 U/L (39-117); Anion Gap 15 (12-20); Aspartate Amino Transferase 27 U/L (5-31); Bilirubin Total 0.3 mg/dL (0.0-1.0); Blood Urea Nitrogen 9 mg/dL (9-16); Calcium 9.8 mg/dL (8.4-10.2); Carbon Dioxide 24 mmol/L (22-29); Chloride 104 mmol/L (96-108); Estimated Glomerular Filt Rate > 60; Glucose Random 98 mg/dL (60-115); Potassium 4.3 mmol/L (3.3-5.1); Sodium 139 mmol/L (135-145); Total Protein 7.6 g/dL (6.5-8.0)
== END 2021-09-11 13:17 | disposition home or self-care (01) ==
LOC: HO.LAB 13:16
PROVIDERS: Visit Provider Internal Medicine Gastroenterology
DX: K70.30 Alcoholic cirrhosis of liver without ascites (principal); K75.81 Nonalcoholic steatohepatitis (NASH); R30.0 Dysuria; N39.41 Urge incontinence
CPT/HCPCS: 36415; 80053; 81001; 81003; 85025; 85610; 87086; 87088; 87186

== ENCOUNTER 2021-11-20 00:03 | Emergency (ER) | payer OTHER, SELFPAY ==
[2021-11-20 00:20] VITALS: BP 102/66; BP 114/68; PULSE 86; RESP 18; TEMP 36.6; O2SAT 98; BMI 45.3
--- NOTE | 2021-11-20 00:31 | ED.ALCOHOL ---
HPI - Alcohol General Chief Complaint: ETOH/Substance Use <MICHAEL Felix - Last Filed: 11/20/21 01:47> Stated Complaint: etoh <MICHAEL Felix Last Filed: 11/20/21 01:47> Time Seen by Provider: 11/20/21 00:15 <MICHAEL Felix Last Filed: 11/20/21 01:47> Source: patient and EMS <MICHAEL Felix Last Filed: 11/20/21 01:47> Mode of arrival: EMS <MICHAEL Felix - Last Filed: 11/20/21 01:47> History of Present Illness HPI narrative: 46-year-old female with a PMHx liver disease, ETOH abuse/dependence s/p recent relapse BIBA for alcohol intoxication and Xanax consumption today. Per patient has been drinking all day, patient herself admits to drinking 6 nips and taking three 1mg tablets of Xanax. Denies suicidality or HI. Denies trauma/falls, CP/SOB, abdominal pain <MICHAEL Felix - Last Filed: 11/20/21 01:47> MD complaint: alcohol intoxication <MICHAEL Felix - Last Filed: 11/20/21 01:47> Last drink: Unknown <MICHAEL Felix - Last Filed: 11/20/21 01:47> Related Data Home Medications: Home Medications Medication Instructions Recorded Confirmed fluoxetine 20 mg capsule 20 mg PO DAILY 04/06/21 07/21/21 Previous Rx's Medication Instructions Recorded hydroxyzine HCl 25 mg tablet 25 mg PO BID PRN 90 Days #180 tab 07/27/21 buspirone 10 mg tablet 10 mg PO BID 90 Days #180 tab 07/30/21 nitrofurantoin 100 mg PO Q12H 5 Days #10 cap 09/14/21 monohydrate/macrocrystals 100 mg capsule (Macrobid) lactulose 10 gram/15 mL oral 15 ml PO DAILY 90 Days #1350 ml 09/18/21 solution clonidine HCl 0.1 mg tablet 0.1 mg PO BEDTIME 90 Days #90 tab 10/06/21 cyclobenzaprine 10 mg tablet 10 mg PO TID PRN 30 Days #90 tab 10/06/21 trazodone 50 mg tablet 50 mg PO BEDTIME PRN 90 Days #90 10/06/21 tab alprazolam 1 mg tablet 1 mg PO TID PRN 28 Days #86 tab 11/12/21 nitrofurantoin 100 mg PO Q12H 5 Days #10 cap 11/20/21 monohydrate/macrocrystals 100 mg capsule (Macrobid) <MICHAEL Felix - Last Filed: 11/20/21 01:47> Allergies/Adverse Reactions: Allergies Allergy/AdvReac Type Severity Reaction Status Date / Time No Known Allergies Allergy Verified 08/11/21 09:38 [No Known Allergies*] <MICHAEL Felix - Last Filed: 11/20/21 01:47> Review of Systems Review of Systems: Constitutional: + intoxication Cardiovascular: No Chest Pain, No SOB Respiratory: No Dyspnea Gastrointestinal: No Nausea, No Vomiting, No Diarrhea, No Abdominal pain Musculoskeletal: No joint pain, No Myalgias Skin: No Skin Lesions, No rash Neuro: No head injury Psych: No SI/HI History limited secondary to patient's acute intoxication <MICHAEL Felix - Last Filed: 11/20/21 01:47> Yes all other systems are reviewed and are negative <MICHAEL Felix - Last Filed: 11/20/21 01:47> [facility] Past Medical History Attestation statement: The following information was validated with the patient. <MICHAEL Felix - Last Filed: 11/20/21 01:47> Medical History: Medical History Alcohol abuse Alcohol use disorder Alcoholic cirrhosis Alcoholism Anxiety Anxiety Chronic liver disease Depression Easy bruising Marijuana smoker Mild recurrent major depression Tobacco use disorder <MICHAEL Felix - Last Filed: 11/20/21 01:47> Surgical History: Surgical History History of colonoscopy Hx of endoscopy <MICHAEL Felix - Last Filed: 11/20/21 01:47> Family History Family History: Family History Father No problems noted. Mother No problems noted. Family/Other Substance use disorder <MICHAEL Felix - Last Filed: 11/20/21 01:47> Social History Social History: Social History Housing: House Alcohol intake: current Alcohol intake frequency: 3 or more drinks per day Patient Tobacco Use Status: Current everyday Tobacco user Tobacco use type: Cigarette Cigarette Packs Per Day: 1 e-Cigarette/Vaping Use: Never Used Second Hand Smoke Exposure: No Use of substances other than those prescribed or required for medical reasons: Yes Substance Use Type: Marijuana Advance Directives: No Advance Directives Information Provided: No service: No Current occupational status: unemployed <MICHAEL Felix - Last Filed: 11/20/21 01:47> Physical Exam Vital Signs: Vital Signs: Last Vital Signs Temp 97.8 F 11/20/21 04:49 Pulse 77 11/20/21 04:49 Resp 11/20/21 04:49 BP 98/65 11/20/21 04:49 Pulse Ox 93 11/20/21 04:49 BMI result Body Mass Index 45.3 <MICHAEL Felix Last Filed: 11/20/21 01:47> Vital Signs: Last Vital Signs Temp 97.8 F 11/20/21 04:49 Pulse 77 11/20/21 04:49 Resp 20 11/20/21 04:49 BP 98/65 11/20/21 04:49 Pulse Ox 93 11/20/21 04:49 BMI result Body Mass Index 45.3 <Annalisa Darden MD - Last Filed: 11/20/21 06:09> Const: Other: Under the influence. ETOH odor on breath. Easily arousable to voice <MICHAEL Felix - Last Filed: 11/20/21 01:47> General: alert <MICHAEL Felix Last Filed: 11/20/21 01:47> Orientation/consciousness: patient oriented x3 <MICHAEL Felix - Last Filed: 11/20/21 01:47> Limitations: other limitations <MICHAEL Felix Last Filed: 11/20/21 01:47> HENMT: Head: Yes normal to inspection, Yes atraumatic, No Carvajal's sign and No raccoon eyes <Praveena TerryMICHAEL emerson - Last Filed: 11/20/21 01:47> Ears: hearing grossly normal bilaterally <MICHAEL Felix - Last Filed: 11/20/21 01:47> General nose exam: Normal external nose present <MICHAEL Felix - Last Filed: 11/20/21 01:47> Face and sinus: Yes normal facial exam <MICHAEL Felix - Last Filed: 11/20/21 01:47> Eyes: General: appearance normal, both eyes and all related structures <MICHAEL Felix - Last Filed: 11/20/21 01:47> Pupils: Equal, round and reactive pupils present <MICHAEL Felix - Last Filed: 11/20/21 01:47> EOM: EOMs intact bilaterally <MICHAEL Felix - Last Filed: 11/20/21 01:47> Neck: Neck: Yes normal visual inspection <Praveena Saldana DC - Last Filed: 11/20/21 01:47> Resp: Effort & Inspection: normal respiratory effort and no respiratory distress <MICHAEL Felix - Last Filed: 11/20/21 01:47> Auscultation: clear to auscultation bilaterally <MICHAEL Felix - Last Filed: 11/20/21 01:47> Cardio: Rate: regular rate <MICHAEL Felix - Last Filed: 11/20/21 01:47> Heart sounds: S1 normal heart sound present and S2 normal heart sound present <Praveena Saldana PA - Last Filed: 11/20/21 01:47> GI: Inspection: Yes normal to inspection <MICHAEL Felix - Last Filed: 11/20/21 01:47> Palpation (GI): Soft to palpation, nontender, no guarding and not rigid <MICHAEL Felix - Last Filed: 11/20/21 01:47> Skin: Rashes: no rashes <MICHAEL Felix - Last Filed: 11/20/21 01:47> Wounds: no wounds <Praveena Saldana PA - Last Filed: 11/20/21 01:47> Neuro: General: patient oriented x3, tone normal and moves all extremities <MICHAEL Felix Last Filed: 11/20/21 01:47> Cranial nerves: Yes Equal, round and reactive pupils present <MICHAEL Felix Last Filed: 11/20/21 01:47> Extrem: General: Yes normal to inspection <MICHAEL Felix Last Filed: 11/20/21 01:47> Psych: Thought content: suicidality <MICHAEL Felix Last Filed: 11/20/21 01:47> Course Course Course Narrative: -0110--On re-evaluation patient awake to sternal rub. Satting 91% on RA. CO2 38. Placed on 2L NC with improvement in O2 to 95% -0144--patient easily arousable to voice -0200--ED care transferred to Dr. Darden pending clinical sobriety and anticipated discharge home. patient placed in position observation as needs more time to metabolize <MICHAEL Felix Last Filed: 11/20/21 01:47> Reevaluation(s) Reevaluation #1: On review of all investigations and re-evaluation of the patient she is feeling much better and denies any attempts at suicidal ideation and has been tolerating oral intake without difficulty and is ready to go home. She is noted to have a UTI of which she was informed and will receive initial antibiotics here in the emergency room and then be discharged with remaining course of antibiotics. <Annalisa Darden MD - Last Filed: 11/20/21 06:09> MDM - Alcohol MDM Narrative Medical decision making narrative: 46-year-old female with a PMHx liver disease, ETOH abuse/dependence s/p recent relapse BIBA for alcohol intoxication and Xanax consumption today. On exam vital signs stable, appears under the influence, ETOH odor on breath, awake to voice/touch, no evidence of trauma. Patient denies SI Plan: Observe and reassess for clinical sobriety <MICHAEL Felix Last Filed: 11/20/21 01:47> Differential Diagnosis Differential diagnosis: Likely alcohol dependence, alcohol intoxication and alcohol withdrawal syndrome <MICHAEL Felix Last Filed: 11/20/21 01:47> Medical Records Attestation: I reviewed the patient's medical records. <MICHAEL Felix - Last Filed: 11/20/21 01:47> Lab Data Attestation: I reviewed the patient's lab results. <MICHAEL Felix Last Filed: 11/20/21 01:47> Labs: Lab Results 11/20/21 Range/Units 05:19 Urine Opiates Screen Not Detected (Not Detect) Urine Fentanyl Screen Not Detected (Not Detect) Ur Barbiturates Screen Not Detected (Not Detect) Ur Phencyclidine Scrn Not Detected (Not Detect) Ur Amphetamines Screen Not Detected (Not Detect) U Benzodiazepines Scrn POSITIVE H (Not Detect) Urine Cocaine Screen Not Detected (Not Detect) U Marijuana (THC) Screen POSITIVE H (Not Detect) <MICHAEL Felix Last Filed: 11/20/21 01:47> Lab Results 11/20/21 Range/Units 05:19 Urine Opiates Screen Not Detected (Not Detect) Urine Fentanyl Screen Not Detected (Not Detect) Ur Barbiturates Screen Not Detected (Not Detect) Ur Phencyclidine Scrn Not Detected (Not Detect) Ur Amphetamines Screen Not Detected (Not Detect) U Benzodiazepines Scrn POSITIVE H (Not Detect) Urine Cocaine Screen Not Detected (Not Detect) U Marijuana (THC) Screen POSITIVE H (Not Detect) <Annalisa Darden MD - Last Filed: 11/20/21 06:09> Discharge Plan Discharge Clinical Impression: Alcoholic intoxication, Benzodiazepine abuse, UTI (urinary tract infection) <MICHAEL Felix - Last Filed: 11/20/21 01:47> Patient Disposition: Home, Self-Care <MICHAEL Felix Last Filed: 11/20/21 01:47> Instructions: Urinary Tract Infection in Women (ED), Alcohol Intoxication (ED), Alcohol Use Disorder (ED) <MICHAEL Felix Last Filed: 11/20/21 01:47> Additional Instructions: Avoid alcohol and drug use Combining use of Xanax and alcohol can kill you Please follow-up with your doctor If you have thoughts of hurting yourself or others please return to the ED immediately <MICHAEL Felix Last Filed: 11/20/21 01:47> Prescriptions: New nitrofurantoin monohyd/m-cryst [Macrobid] 100 mg capsule 100 mg PO Q12H 5 Days Qty: 10 RF: 0 No Action hydroxyzine HCl 25 mg tablet 25 mg PO BID PRN (Reason: itching) 90 Days Qty: 180 RF: 0 buspirone 10 mg tablet 10 mg PO BID 90 Days Qty: 180 RF: 0 nitrofurantoin monohyd/m-cryst [Macrobid] 100 mg capsule 100 mg PO Q12H 5 Days Qty: 10 RF: 0 lactulose 10 gram/15 mL solution 15 ml PO DAILY 90 Days Qty: 1350 RF: 0 clonidine HCl 0.1 mg tablet 0.1 mg PO BEDTIME 90 Days Qty: 90 RF: 1 cyclobenzaprine 10 mg tablet 10 mg PO TID PRN (Reason: muscle spasm) 30 Days Qty: 90 RF: 1 trazodone 50 mg tablet 50 mg PO BEDTIME PRN (Reason: sleep) 90 Days Qty: 90 RF: 0 alprazolam 1 mg tablet 1 mg PO TID PRN (Reason: anxiety) 28 Days Qty: 86 RF: 0 fluoxetine 20 mg capsule 20 mg PO DAILY RF: 0 <MICHAEL Felix - Last Filed: 11/20/21 01:47> Referrals: [facility] [Physician] - 2 days Joan Torres MD [Primary Care Provider] - 2 days <MICHAEL Felix - Last Filed: 11/20/21 01:47>
--- NOTE | 2021-11-20 03:19 | PC.NURSE ---
pt is sleeping at this time, no sign of distress. pt on 3liters nasal cannula sating in the 90's.
[2021-11-20 04:49] VITALS: BP 98/65; PULSE 77; RESP 20; TEMP 36.6; O2SAT 93
[2021-11-20 05:39] LABS: Amphetamine Screen Urine Not Detected (Not Detect); Barbiturates, Urine Not Detected (Not Detect); Benzodiazepines Screen Urine POSITIVE (Not Detect); Cannabinoid Screen Urine POSITIVE (Not Detect); Cocaine Screen Urine Not Detected (Not Detect); Fentanyl, urine Not Detected (Not Detect); Opiate Screen Urine Not Detected (Not Detect); Phencyclidine Screen Urine Not Detected (Not Detect)
[2021-11-20] MEDS: Nitrofurantoin Monohyd/M-Cryst 100 MG CAPSULE PO (06:01)
== END 2021-11-20 06:48 | disposition home or self-care (01) ==
PROVIDERS: Physician Assistant; Emergency Provider Student in an Organized Health Care Education/Training Program; PCP Internal Medicine
DX: F10.220 Alcohol dependence with intoxication, uncomplicated (principal); Y90.9 Presence of alcohol in blood, level not specified; F13.10 Sedative, hypnotic or anxiolytic abuse, uncomplicated; N39.0 Urinary tract infection, site not specified; F12.90 Cannabis use, unspecified, uncomplicated; F17.200 Nicotine dependence, unspecified, uncomplicated; F41.9 Anxiety disorder, unspecified; Z79.899 Other long term (current) drug therapy
CPT/HCPCS: 80307; 99285

== ENCOUNTER → 2021-12-11 10:01 | Outpatient (BNVA) | payer OTHER, SELFPAY | PROVIDERS: PCP Internal Medicine; Referring Provider Internal Medicine; Visit Provider Internal Medicine Gastroenterology ==

== ENCOUNTER 2022-01-04 09:52 | Outpatient (REF) | payer OTHER, SELFPAY ==
[2022-01-04 10:16] LABS: MANUAL DIFF FLAG NO
[2022-01-04 10:28] LABS: Basophils Absolute Auto 0.1 X10*3/uL (0.0-0.2); Basophils Percent Auto 0.7 % (0-2); Eosinophils Absolute Auto 0.2 X10*3/uL (0.0-0.4); Eosinophils Percent Auto 2.2 % (0-4); Hematocrit 39.7 % (37.0-47.0); Hemoglobin 13.1 g/dl (12.0-16.0); Imm Gran Abs Auto 0.02 X10*3/uL (0.00-0.03); Imm Gran Pct Auto 0.3 % (0.0-0.4); Lymphocytes Absolute Auto 2.3 X10*3/uL (1.2-4.9); Lymphocytes Percent Auto 30.4 % (20-40); Mean Corpuscular Hemoglobin 32.5 pg (27.0-33.0); Mean Corpuscular Volume 98.5 fL (80.0-98.0); Mean Platelet Volume 10.5 fL (9.4-12.3); Monocytes Absolute Auto 0.7 X10*3/uL (0.1-1.2); Monocytes Percent Auto 9.7 % (2-11); Neutrophils Absolute Auto 4.3 x10*3/uL (2.0-8.3); Neutrophils Percent Auto 56.7 % (45-73); Platelet Count 267 X10*3/uL (160-400); Red Blood Count 4.03 X10*6/uL (4.20-5.50); Red Cell Distribution Width 13.4 % (11.0-16.0); White Blood Count 7.6 X10*3/uL (4.8-10.8)
[2022-01-04 10:33] LABS: INTERNATIONAL NORM RATIO 1.1 (0.9-1.1); Prothrombin Time 12.2 SEC (9.9-13.0)
[2022-01-04 11:29] LABS: Alanine Aminotransferase 24 U/L (0-31); Albumin Level 3.8 g/dL (3.5-5.0); Alkaline Phosphatase 86 U/L (39-117); Anion Gap 11 (12-20); Aspartate Amino Transferase 21 U/L (5-31); Bilirubin Total 0.2 mg/dL (0.0-1.0); Blood Urea Nitrogen 12 mg/dL (9-16); Calcium 10.1 mg/dL (8.4-10.2); Carbon Dioxide 28 mmol/L (22-29); Chloride 105 mmol/L (96-108); Estimated Glomerular Filt Rate > 60; Glucose Random 108 mg/dL (60-115); Potassium 5.4 mmol/L (3.3-5.1); Sodium 139 mmol/L (135-145); Total Protein 6.7 g/dL (6.5-8.0)
[2022-01-04 11:53] LABS: Ferritin 32 ng/mL (10-250)
[2022-01-04 12:06] LABS: Folate 11.8 ng/mL (> or = 4.0); Vitamin B12 820 pg/mL (200-900)
[2022-01-05 18:31] LABS: Follicle Stimulating Hormone 28.7 mIU/mL; Lutenizing Hormone 28.9 mIU/mL
[2022-01-07 03:11] LABS: Zinc 66 mcg/dL (60-130)
[2022-01-07 11:28] LABS: Vitamin C 0.9 mg/dL (0.3-2.7)
[2022-01-09 20:35] LABS: Vitamin A 38 mcg/dL (38-98)
== END 2022-01-04 09:53 | disposition home or self-care (01) ==
LOC: HO.LAB 09:52
PROVIDERS: PCP Internal Medicine; Visit Provider Internal Medicine Gastroenterology
DX: F10.10 Alcohol abuse, uncomplicated (principal); K70.30 Alcoholic cirrhosis of liver without ascites; K75.81 Nonalcoholic steatohepatitis (NASH)
CPT/HCPCS: 36415; 80053; 82180; 82607; 82728; 82746; 83001; 83002; 84590; 84630; 85025; 85610

== ENCOUNTER 2022-01-14 13:11 | Outpatient (REF) | payer OTHER, SELFPAY ==
[2022-01-14 14:35] LABS: Potassium 5.6 mmol/L (3.3-5.1)
== END 2022-01-14 13:12 | disposition home or self-care (01) ==
LOC: HO.LAB 13:11
PROVIDERS: PCP Internal Medicine; Visit Provider Internal Medicine Gastroenterology
DX: E87.5 Hyperkalemia (principal)
CPT/HCPCS: 36415; 84132

== ENCOUNTER 2022-02-08 10:30 | Outpatient (REF) | payer OTHER, SELFPAY ==
[2022-02-08 11:08] LABS: Baso%MD 0.5 %; Eos%MD 4.4 %; Hematocrit 40.9 % (37.0-47.0); Hemoglobin 13.7 g/dl (12.0-16.0); IG%MD 0.2 %; Lymph%MD 33.1 %; Mean Corpuscular HGB Conc 33.5 g/dl (31.0-35.0); Mean Corpuscular Volume 95.6 fL (80.0-98.0); Mean Platelet Volume 10.9 fL (9.4-12.3); Mono%MD 5.4 %; Neut%MD 56.4 %; Platelet Count 184 X10*3/uL (160-400); Red Blood Count 4.28 X10*6/uL (4.20-5.50); Red Cell Distribution Width 12.1 % (11.0-16.0); White Blood Count 10.3 X10*3/uL (4.8-10.8)
[2022-02-08 11:42] LABS: Band Neutrophils Percent 0 % (3-5); Basophils Abs Manual 0.2 X10*3/uL (0.0-0.2); Basophils Percent Manual 2 % (0-2); Eosinophils Absolute Manual 0.5 X10*3/uL (0.0-0.4); Eosinophils Percent Manual 5 % (0-4); Lymphocytes Absolute Manual 3.9 X10*3/uL (1.2-4.9); Lymphocytes Percent Manual 38 % (20-40); Monocytes Absolute Manual 0.7 X10*3/uL (0.1-1.2); Monocytes Percent Manual 7 % (2-11); Neutrophils Absolute Manual 4.9 X10*3/uL (2.0-8.3); Neutrophils Percent Manual 48 % (45-73)
[2022-02-08 11:43] LABS: Platelet Estimate NORMAL (NORMAL); Platelet Morphology Comment NORMAL; RBC Morphology NORMAL
[2022-02-08 12:00] LABS: TSH reflex Free T4 0.62 uIU/mL (0.32-4.0)
[2022-02-08 12:06] LABS: Alanine Aminotransferase 16 U/L (0-31); Albumin Level 4.4 g/dL (3.5-5.0); Alkaline Phosphatase 104 U/L (39-117); Anion Gap 14 (12-20); Aspartate Amino Transferase 24 U/L (5-31); Bilirubin Total 0.2 mg/dL (0.0-1.0); Blood Urea Nitrogen 15 mg/dL (9-16); Calcium 9.8 mg/dL (8.4-10.2); Carbon Dioxide 26 mmol/L (22-29); Chloride 102 mmol/L (96-108); Cholesterol 268 mg/dL; Estimated Glomerular Filt Rate > 60; Gamma Glutamyl Transpeptidase 65 U/L (7-33); Glucose Fasting 100 mg/dL (60-99); HDL Cholesterol 62 mg/dL; LDL Cholesterol Calculated 171 mg/dl; Potassium 4.8 mmol/L (3.3-5.1); Sodium 137 mmol/L (135-145); Total Protein 7.7 g/dL (6.5-8.0); Triglycerides 179 mg/dL
[2022-02-08 12:14] LABS: Folate 6.6 ng/mL (> or = 4.0); Vitamin B12 429 pg/mL (200-900)
[2022-02-12 13:12] LABS: Vitamin D 25-OH, D2 <4 ng/mL; Vitamin D 25-OH, D3 38 ng/mL; Vitamin D 25-OH, Total 38 ng/mL (30-100)
== END 2022-02-08 10:31 | disposition home or self-care (01) ==
LOC: HO.LAB 10:30
PROVIDERS: Nurse Practitioner Acute Care; PCP Internal Medicine; Visit Provider Internal Medicine Gastroenterology
DX: E87.5 Hyperkalemia (principal); K70.30 Alcoholic cirrhosis of liver without ascites
CPT/HCPCS: 36415; 80053; 80061; 82306; 82607; 82746; 82977; 84443; 85007; 85027

== ENCOUNTER → 2022-02-09 10:07 | Outpatient (BNVA) | payer OTHER, SELFPAY | PROVIDERS: PCP Internal Medicine; Referring Provider Internal Medicine; Visit Provider Internal Medicine Gastroenterology | DX: Z23 Encounter for immunization (principal) | CPT/HCPCS: 90471 ==

== ENCOUNTER 2022-02-15 01:10 | Emergency (ER) | payer OTHER, SELFPAY ==
[2022-02-15 01:33] VITALS: BP 140/93; PULSE 104; RESP 20; O2SAT 96
[2022-02-15 03:23] VITALS: BP 139/95; PULSE 97; RESP 16; TEMP 36.4; O2SAT 93
--- NOTE | 2022-02-15 04:11 | ED_ITS ---
HPI - Alcohol General Chief Complaint: ETOH/Substance Use Stated Complaint: cirrhosis, etoh Time Seen by Provider: 02/15/22 01:25 Source: patient and family () Mode of arrival: ambulatory History of Present Illness HPI narrative: 46-year-old female with alcohol cirrhosis and current alcohol use disorder who states that she has been drinking this evening and is very frustrated because she has been through detox several times but can not seem to quit. She states that were that difficulties is that her of almost 25 years continues to consume alcohol which makes it difficult to stay away. Currently she denies any shortness of breath/chest pain, fever, chills. Related Data Home Medications Medication Instructions Recorded Confirmed fluoxetine 20 mg capsule 20 mg PO DAILY 04/06/21 01/15/22 Previous Rx's Medication Instructions Recorded buspirone 10 mg tablet 10 mg PO BID 90 Days #180 tab 07/30/21 cyclobenzaprine 10 mg tablet 10 mg PO TID PRN 30 Days #90 tab 10/06/21 trazodone 50 mg tablet 50 mg PO BEDTIME PRN 90 Days #90 01/04/22 tab ibuprofen 600 mg tablet 600 mg PO Q8H PRN #14 tab 01/15/22 lidocaine 5 % topical patch 1 patch TOPICAL DAILY #15 ea 01/15/22 clonidine HCl 0.1 mg tablet 0.1 mg PO BEDTIME 90 Days #90 tab 01/21/22 hydroxyzine HCl 50 mg tablet 50 mg PO BID PRN 30 Days #60 tab 01/21/22 risperidone 4 mg disintegrating 4 mg PO DAILY 30 Days #30 tab 01/21/22 tablet alprazolam 1 mg tablet 1 mg PO TID PRN 28 Days #86 tab 02/02/22 Allergies Allergy/AdvReac Type Severity Reaction Status Date / Time No Known Allergies Allergy Verified 02/15/22 01:37 [No Known Allergies*] Review of Systems Review of Systems: Pertinent positives and negatives as stated in HPI 10 point review of systems is otherwise negative. 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 Mother No problems noted. Family/Other Substance use disorder Social History Social History Housing: House Alcohol intake: current Alcohol intake frequency: 3 or more drinks per day Alcohol type: hard liquor Patient Tobacco Use Status: Current everyday Tobacco user Tobacco use type: Cigarette Cigarettes Per Day: 15 Smoked in Last 30 Days: Yes e-Cigarette/Vaping Use: Never Used Second Hand Smoke Exposure: No Use of substances other than those prescribed or required for medical reasons: No Substance Use Type: Marijuana Advance Directives: No service: No Current occupational status: unemployed Physical Exam ED Vital Signs: Vital Signs - 24 hr 02/15/22 01:33 02/15/22 03:23 02/15/22 05:56 Temperature 97.6 F 98.3 F Pulse Rate 104 H 97 96 Respiratory Rate 20 16 19 Blood Pressure 140/93 H 139/95 H 109/61 Pulse Oximetry 96 93 96 BMI result Body Mass Index 20.0 VITAL SIGNS: Reviewed. GENERAL: Well developed, well nourished, in no acute distress. HEAD: Normocephalic/atraumatic EYES: PERRLA, EOMI, mild scleral icterus EARS: Ext canals without abnormality OROPHARYNX: no oral lesions noted, posterior pharynx clear LUNGS: Normal breath sounds. No adventitious sounds or accessory muscle use. SpO2<96> CARDIOVASCULAR: Regular rate and rhythm without noted murmurs, no JVD or lower extremity edema. ABDOMEN: Soft, mild tenderness on palpation, non-distended with bowel sounds. SKIN: Inspection of the skin reveals no rashes, mild jaundice NEUROLOGIC: Alert and oriented x 4. Strength and sensation to light touch were grossly intact x 4. Course Course Course Narrative: 46-year-old female with history and clinical presentation consistent with alcohol use disorder and alcohol cirrhosis who is asking for detox. Patient will be medically cleared, placed on CIWA scale, and provided with Librium and consult for detox placed. Review of all investigations otherwise negative for acute findings. Patient is otherwise medically cleared for further evaluation by the care team for placement in detox. Reevaluation(s) Reevaluation #1: Patient placed in physician observation because the patient needed more time for eval by CARE team for detox from etoH.. At the time observation was started the patient's vital signs were stable, patient is alert and oriented, neuro: Nonfocal, CV RRR, lungs clear Time: 06:34 MDM - Alcohol Lab Data Result diagrams: 02/15/22 04:51 02/15/22 04:51 Labs: Lab Results 02/15/22 02/15/22 02/15/22 Range/Units 04:51 04:51 04:51 WBC 9.6 (4.8-10.8) X10*3/uL RBC 4.38 (4.20-5.50) X10*6/uL Hgb 14.1 (12.0-16.0) g/dl Hct 40.8 (37.0-47.0) % MCV 93.2 (80.0-98.0) fL MCH 32.2 (27.0-33.0) pg MCHC 34.6 (31.0-35.0) g/dl RDW 12.5 (11.0-16.0) % Plt Count 226 (160-400) X10*3/uL MPV 10.1 (9.4-12.3) fL Immature Gran % (Auto) 0.3 (0.0-0.4) % Neut % (Auto) 29.3 L (45-73) % Lymph % (Auto) 58.6 H (20-40) % Churchill % (Auto) 5.8 (2-11) % Eos % (Auto) 5.2 H (0-4) % Baso % (Auto) 0.8 (0-2) % Lymph # (Auto) 5.7 H (1.2-4.9) X10*3/uL Churchill # (Auto) 0.6 (0.1-1.2) X10*3/uL Eos # (Auto) 0.5 H (0.0-0.4) X10*3/uL Baso # (Auto) 0.1 (0.0-0.2) X10*3/uL Abs Immat Gran (auto) 0.03 (0.00-0.03) X10*3/uL Absolute Neuts (auto) 2.8 (2.0-8.3) x10*3/uL Absolute Nucleated RBC 0.000 (0.0-0.012) X10*3/uL Nucleated RBC % (auto) 0.0 (0.0-0.2) /100WBC Smear Tech's Comments VERIFIED PT (9.9-13.0) SEC INR (0.9-1.1) Sodium (135-145) mmol/L Potassium (3.3-5.1) mmol/L Chloride (96-108) mmol/L Carbon Dioxide (22-29) mmol/L Anion Gap (12-20) BUN (9-16) mg/dL Creatinine (0.5-1.4) mg/dL Estim Creat Clear Calc Estimated GFR Random Glucose (60-115) mg/dL Calcium (8.4-10.2) mg/dL Total Bilirubin (0.0-1.0) mg/dL AST (5-31) U/L ALT (0-31) U/L Alkaline Phosphatase (39-117) U/L Total Protein (6.5-8.0) g/dL Albumin (3.5-5.0) g/dL Lipase (8-78) U/L Urine Color Urine Appearance Urine pH (5.0-8.0) Ur Specific [place] (1.005-1.025) Urine Protein (NEG-TRACE) MG/DL Urine Glucose (UA) (NEG) MG/DL Urine Ketones (NEG) MG/DL Urine Blood (NEG) Urine Nitrite (NEG) Ur Leukocyte Esterase (NEG) Urine RBC (0) /HPF Urine WBC (0-4) /HPF Ur Squamous Epith Cells /LPF Calcium Phosphate Cryst /LPF Urine Bacteria /LPF Urine Test (NEGATIVE) Urine Opiates Screen (Not Detect) Urine Fentanyl Screen (Not Detect) Ur Barbiturates Screen (Not Detect) Ur Phencyclidine Scrn (Not Detect) Ur Amphetamines Screen (Not Detect) U Benzodiazepines Scrn (Not Detect) Urine Cocaine Screen (Not Detect) U Marijuana (THC) Screen (Not Detect) Ethyl Alcohol 335 H* mg/dL COVID-19 ([facility]) Negative (Negative) COVID-19 Clin Com See Note 02/15/22 02/15/22 02/15/22 Range/Units 04:51 04:51 04:51 WBC (4.8-10.8) X10*3/uL RBC (4.20-5.50) X10*6/uL Hgb (12.0-16.0) g/dl Hct (37.0-47.0) % MCV (80.0-98.0) fL MCH (27.0-33.0) pg MCHC (31.0-35.0) g/dl RDW (11.0-16.0) % Plt Count (160-400) X10*3/uL MPV (9.4-12.3) fL Immature Gran % (Auto) (0.0-0.4) % Neut % (Auto) (45-73) % Lymph % (Auto) (20-40) % Churchill % (Auto) (2-11) % Eos % (Auto) (0-4) % Baso % (Auto) (0-2) % Lymph # (Auto) (1.2-4.9) X10*3/uL [place] # (Auto) (0.1-1.2) X10*3/uL Eos # (Auto) (0.0-0.4) X10*3/uL Baso # (Auto) (0.0-0.2) X10*3/uL Abs Immat Gran (auto) (0.00-0.03) X10*3/uL Absolute Neuts (auto) (2.0-8.3) x10*3/uL Absolute Nucleated RBC (0.0-0.012) X10*3/uL Nucleated RBC % (auto) (0.0-0.2) /100WBC Smear Tech's Comments PT 10.8 (9.9-13.0) SEC INR 1.0 (0.9-1.1) Sodium 145 (135-145) mmol/L Potassium 4.1 (3.3-5.1) mmol/L Chloride 106 (96-108) mmol/L Carbon Dioxide 27 (22-29) mmol/L Anion Gap 16 (12-20) BUN 15 (9-16) mg/dL Creatinine 0.81 (0.5-1.4) mg/dL Estim Creat Clear Calc 72.9 Estimated GFR > 60 Random Glucose 92 (60-115) mg/dL Calcium 9.3 (8.4-10.2) mg/dL Total Bilirubin 0.2 (0.0-1.0) mg/dL AST 47 H D (5-31) U/L ALT 26 (0-31) U/L Alkaline Phosphatase 117 (39-117) U/L Total Protein 7.9 (6.5-8.0) g/dL Albumin 4.4 (3.5-5.0) g/dL Lipase 53 (8-78) U/L Urine Color STRAW Urine Appearance CLEAR Urine pH 6.0 (5.0-8.0) Ur Specific [place] <= 1.005 (1.005-1.025) Urine Protein NEG (NEG-TRACE) MG/DL Urine Glucose (UA) NEG (NEG) MG/DL Urine Ketones NEG (NEG) MG/DL Urine Blood TRACE (NEG) Urine Nitrite NEG (NEG) Ur Leukocyte Esterase NEG (NEG) Urine RBC 0-2 (0) /HPF Urine WBC 0-2 (0-4) /HPF Ur Squamous Epith Cells TRACE /LPF Calcium Phosphate Cryst TRACE /LPF Urine Bacteria 2+ /LPF Urine Test (NEGATIVE) Urine Opiates Screen (Not Detect) Urine Fentanyl Screen (Not Detect) Ur Barbiturates Screen (Not Detect) Ur Phencyclidine Scrn (Not Detect) Ur Amphetamines Screen (Not Detect) U Benzodiazepines Scrn (Not Detect) Urine Cocaine Screen (Not Detect) U Marijuana (THC) Screen (Not Detect) Ethyl Alcohol mg/dL COVID-19 ([facility]) (Negative) COVID-19 Clin Com 02/15/22 02/15/22 Range/Units 04:51 04:51 WBC (4.8-10.8) X10*3/uL RBC (4.20-5.50) X10*6/uL Hgb (12.0-16.0) g/dl Hct (37.0-47.0) % MCV (80.0-98.0) fL MCH (27.0-33.0) pg MCHC (31.0-35.0) g/dl RDW (11.0-16.0) % Plt Count (160-400) X10*3/uL MPV (9.4-12.3) fL Immature Gran % (Auto) (0.0-0.4) % Neut % (Auto) (45-73) % Lymph % (Auto) (20-40) % Churchill % (Auto) (2-11) % Eos % (Auto) (0-4) % Baso % (Auto) (0-2) % Lymph # (Auto) (1.2-4.9) X10*3/uL [place] # (Auto) (0.1-1.2) X10*3/uL Eos # (Auto) (0.0-0.4) X10*3/uL Baso # (Auto) (0.0-0.2) X10*3/uL Abs Immat Gran (auto) (0.00-0.03) X10*3/uL Absolute Neuts (auto) (2.0-8.3) x10*3/uL Absolute Nucleated RBC (0.0-0.012) X10*3/uL Nucleated RBC % (auto) (0.0-0.2) /100WBC Smear Tech's Comments PT (9.9-13.0) SEC INR (0.9-1.1) Sodium (135-145) mmol/L Potassium (3.3-5.1) mmol/L Chloride (96-108) mmol/L Carbon Dioxide (22-29) mmol/L Anion Gap (12-20) BUN (9-16) mg/dL Creatinine (0.5-1.4) mg/dL Estim Creat Clear Calc Estimated GFR Random Glucose (60-115) mg/dL Calcium (8.4-10.2) mg/dL Total Bilirubin (0.0-1.0) mg/dL AST (5-31) U/L ALT (0-31) U/L Alkaline Phosphatase (39-117) U/L Total Protein (6.5-8.0) g/dL Albumin (3.5-5.0) g/dL Lipase (8-78) U/L Urine Color Urine Appearance Urine pH (5.0-8.0) Ur Specific [place] (1.005-1.025) Urine Protein (NEG-TRACE) MG/DL Urine Glucose (UA) (NEG) MG/DL Urine Ketones (NEG) MG/DL Urine Blood (NEG) Urine Nitrite (NEG) Ur Leukocyte Esterase (NEG) Urine RBC (0) /HPF Urine WBC (0-4) /HPF Ur Squamous Epith Cells /LPF Calcium Phosphate Cryst /LPF Urine Bacteria /LPF Urine Test NEGATIVE (NEGATIVE) Urine Opiates Screen Not Detected (Not Detect) Urine Fentanyl Screen Not Detected (Not Detect) Ur Barbiturates Screen Not Detected (Not Detect) Ur Phencyclidine Scrn Not Detected (Not Detect) Ur Amphetamines Screen Not Detected (Not Detect) U Benzodiazepines Scrn POSITIVE H (Not Detect) Urine Cocaine Screen Not Detected (Not Detect) U Marijuana (THC) Screen POSITIVE H (Not Detect) Ethyl Alcohol mg/dL COVID-19 ([facility]) (Negative) COVID-19 Clin Com Discharge Plan Discharge Clinical Impression: Alcoholic cirrhosis, Alcohol intoxication, Alcohol use disorder Patient Disposition: Still a Patient Prescriptions: No Action buspirone 10 mg tablet 10 mg PO BID 90 Days Qty: 180 0RF cyclobenzaprine 10 mg tablet 10 mg PO TID PRN (Reason: muscle spasm) 30 Days Qty: 90 1RF trazodone 50 mg tablet 50 mg PO BEDTIME PRN (Reason: sleep) 90 Days Qty: 90 0RF clonidine HCl 0.1 mg tablet 0.1 mg PO BEDTIME 90 Days Qty: 90 1RF hydroxyzine HCl 50 mg tablet 50 mg PO BID PRN (Reason: itching) 30 Days Qty: 60 1RF risperidone 4 mg tablet,disintegrating 4 mg PO DAILY 30 Days Qty: 30 0RF alprazolam 1 mg tablet 1 mg PO TID PRN (Reason: anxiety) 28 Days Qty: 86 0RF lidocaine 5 % adhesive patch,medicated 1 patch topical DAILY Qty: 15 0RF Rx Instructions: leave on most painful area for up to 12 hrs ibuprofen 600 mg tablet 600 mg PO Q8H PRN (Reason: pain (scale score 7-10)) Qty: 14 0RF fluoxetine 20 mg capsule 20 mg PO DAILY 0RF
[2022-02-15] MEDS: 0.9 % Sodium Chloride 500 ML 999 ML IV (04:57)
[2022-02-15 04:59] LABS: Basophils Absolute Auto 0.1 X10*3/uL (0.0-0.2); Basophils Percent Auto 0.8 % (0-2); Eosinophils Absolute Auto 0.5 X10*3/uL (0.0-0.4); Eosinophils Percent Auto 5.2 % (0-4); Hematocrit 40.8 % (37.0-47.0); Hemoglobin 14.1 g/dl (12.0-16.0); Imm Gran Abs Auto 0.03 X10*3/uL (0.00-0.03); Imm Gran Pct Auto 0.3 % (0.0-0.4); Lymphocytes Absolute Auto 5.7 X10*3/uL (1.2-4.9); Lymphocytes Percent Auto 58.6 % (20-40); Mean Corpuscular HGB Conc 34.6 g/dl (31.0-35.0); Mean Corpuscular Hemoglobin 32.2 pg (27.0-33.0); Mean Corpuscular Volume 93.2 fL (80.0-98.0); Mean Platelet Volume 10.1 fL (9.4-12.3); Monocytes Absolute Auto 0.6 X10*3/uL (0.1-1.2); Monocytes Percent Auto 5.8 % (2-11); Neutrophils Absolute Auto 2.8 x10*3/uL (2.0-8.3); Neutrophils Percent Auto 29.3 % (45-73); Platelet Count 226 X10*3/uL (160-400); Red Blood Count 4.38 X10*6/uL (4.20-5.50); Red Cell Distribution Width 12.5 % (11.0-16.0); SCAN SMEAR FLAG 1; White Blood Count 9.6 X10*3/uL (4.8-10.8)
[2022-02-15 05:00] LABS: Appearance Urine CLEAR; Color Urine STRAW; Glucose Urine UA NEG (NEG); Leukocyte Esterase Urine NEG (NEG); MANUAL DIFF FLAG SCAN; Nitrite Urine NEG (NEG); Specific Gravity - Urine <= 1.005 (1.005-1.025); UACC Culture Trigger NO; Urine Blood TRACE (NEG); Urine Ketones NEG (NEG); Urine Protein NEG (NEG-TRACE)
[2022-02-15 05:01] LABS: UPreg QC Valid YES; Urine Pregnancy NEGATIVE (NEGATIVE)
[2022-02-15 05:04] LABS: Prothrombin Time 10.8 SEC (9.9-13.0)
[2022-02-15 05:06] LABS: Bacteria Urine 2+ /LPF; Calcium Phosphate Crystals Ur TRACE /LPF; RBC Urine 0-2 /HPF (0); Squamous Epithelial Cell Urine TRACE /LPF; WBC Urine 0-2 /HPF (0-4)
[2022-02-15 05:11] LABS: Ethanol 335 mg/dL
[2022-02-15 05:15] LABS: Alanine Aminotransferase 26 U/L (0-31); Albumin Level 4.4 g/dL (3.5-5.0); Alkaline Phosphatase 117 U/L (39-117); Anion Gap 16 (12-20); Aspartate Amino Transferase 47 U/L (5-31); Bilirubin Total 0.2 mg/dL (0.0-1.0); Blood Urea Nitrogen 15 mg/dL (9-16); Calcium 9.3 mg/dL (8.4-10.2); Carbon Dioxide 27 mmol/L (22-29); Chloride 106 mmol/L (96-108); Creatinine Clr Calc Pharmacy 72.9; Estimated Glomerular Filt Rate > 60; Glucose Random 92 mg/dL (60-115); Lipase 53 U/L (8-78); Potassium 4.1 mmol/L (3.3-5.1); Sodium 145 mmol/L (135-145); Total Protein 7.9 g/dL (6.5-8.0)
[2022-02-15 05:16] LABS: SLIDE REVIEW VERIFIED
[2022-02-15 05:20] LABS: COVID-19 Test Negative (Negative)
[2022-02-15 05:23] LABS: Amphetamine Screen Urine Not Detected (Not Detect); Barbiturates, Urine Not Detected (Not Detect); Benzodiazepines Screen Urine POSITIVE (Not Detect); Cannabinoid Screen Urine POSITIVE (Not Detect); Cocaine Screen Urine Not Detected (Not Detect); Fentanyl, urine Not Detected (Not Detect); Opiate Screen Urine Not Detected (Not Detect); Phencyclidine Screen Urine Not Detected (Not Detect)
[2022-02-15 05:56] VITALS: BP 109/61; PULSE 96; RESP 19; TEMP 36.8; O2SAT 96
[2022-02-15] MEDS: chlordiazePOXIDE HCl 25 MG CAPSULE 50 MG PO (06:31)
[2022-02-15 07:06] VITALS: BP 125/83; PULSE 98; RESP 18; TEMP 36.5; O2SAT 92
[2022-02-15 08:32] VITALS: BP 106/70; PULSE 96; RESP 16; TEMP 36.9; O2SAT 93
--- NOTE | 2022-02-15 10:08 | PC.NURSE ---
Pt seen by zane Olvera to d/c home. Pt steady on feet with clear speech. Acting appropriately. will transport pt home, pt ambulated to with this RN and there to transport home
--- NOTE | 2022-02-15 10:14 | HO.ADDICT_ITS ---
History of Present Illness Date of Service: 02/15/2022 Chief Complaint: cirrhosis, etoh Reason for Consult: AUD eval and treatment rec HPI Narrative: Patient is a 46-year-old female with alcohol use disorder and liver cirrhosis. She presented to the emergency department overnight stating that she needed help stop drinking. Seen by this adjusto writer operator in room 17 of the emergency department. Patient awake, alert, pleasant and engaged in interview. She reports that she had been in remission from alcohol use disorder for 5 years (from [id number]), but then started to drink again. States that she is drinking approximately 8 nips of vodka daily. Denies any other substance use. She reports multiple doctors hospital level of care admissions and numerous medications for alcohol use disorder trials. Reports numerous medical admissions in the past related to alcohol use. Family history of substance use disorders, both parents secondary to substance use. When seen by this adjusto writer operator she did not appear to be experiencing any acute alcohol withdrawal symptoms, and she denied any. Reviewed treatment and support options with patient. She declined any referrals stating, that she knows ?nothing will help?. She expanded on that stating that remaining abstinent from alcohol is very challenging as her is also dealing with alcohol use disorder and at this time is not interested in stopping. Requesting to go home. Review of Systems Constitutional: Reports as per HPI Diagnostics Vital Signs (24Hr): Vital Signs - 24 hr 02/15/22 01:33 02/15/22 03:23 02/15/22 05:56 Temperature 97.6 F 98.3 F Pulse Rate 104 H 97 96 Respiratory Rate 20 16 19 Blood Pressure 140/93 H 139/95 H 109/61 Pulse Oximetry 96 93 96 02/15/22 07:06 02/15/22 08:32 Temperature 97.7 F 98.5 F Pulse Rate 98 96 Respiratory Rate 18 16 Blood Pressure 125/83 106/70 Pulse Oximetry 92 93 BMI result Body Mass Index 20.0 Labs Results: 02/15/22 04:51 02/15/22 04:51 Labs: Laboratory Results - last 48 hr 02/15/22 02/15/22 02/15/22 04:51 04:51 04:51 WBC 9.6 RBC 4.38 Hgb 14.1 Hct 40.8 MCV 93.2 MCH 32.2 MCHC 34.6 RDW 12.5 Plt Count 226 MPV 10.1 Immature Gran % (Auto) 0.3 Neut % (Auto) 29.3 L Lymph % (Auto) 58.6 H [place] % (Auto) 5.8 Eos % (Auto) 5.2 H Baso % (Auto) 0.8 Lymph # (Auto) 5.7 H [place] # (Auto) 0.6 Eos # (Auto) 0.5 H Baso # (Auto) 0.1 Abs Immat Gran (auto) 0.03 Absolute Neuts (auto) 2.8 Absolute Nucleated RBC 0.000 Nucleated RBC % (auto) 0.0 Smear Tech's Comments VERIFIED PT INR Sodium Potassium Chloride Carbon Dioxide Anion Gap BUN Creatinine Estim Creat Clear Calc Estimated GFR Random Glucose Calcium Total Bilirubin AST ALT Alkaline Phosphatase Total Protein Albumin Lipase Urine Color Urine Appearance Urine pH Ur Specific [place] Urine Protein Urine Glucose (UA) Urine Ketones Urine Blood Urine Nitrite Ur Leukocyte Esterase Urine RBC Urine WBC Ur Squamous Epith Cells Calcium Phosphate Cryst Urine Bacteria Urine Test Urine Opiates Screen Urine Fentanyl Screen Ur Barbiturates Screen Ur Phencyclidine Scrn Ur Amphetamines Screen U Benzodiazepines Scrn Urine Cocaine Screen U Marijuana (THC) Screen Ethyl Alcohol 335 H* COVID-19 ([facility]) Negative COVID-19 Clin Com See Note 02/15/22 02/15/22 02/15/22 04:51 04:51 04:51 WBC RBC Hgb Hct MCV MCH MCHC RDW Plt Count MPV Immature Gran % (Auto) Neut % (Auto) Lymph % (Auto) [place] % (Auto) Eos % (Auto) Baso % (Auto) Lymph # (Auto) [place] # (Auto) Eos # (Auto) Baso # (Auto) Abs Immat Gran (auto) Absolute Neuts (auto) Absolute Nucleated RBC Nucleated RBC % (auto) Smear Tech's Comments PT 10.8 INR 1.0 Sodium 145 Potassium 4.1 Chloride 106 Carbon Dioxide 27 Anion Gap 16 BUN 15 Creatinine 0.81 Estim Creat Clear Calc 72.9 Estimated GFR > 60 Random Glucose 92 Calcium 9.3 Total Bilirubin 0.2 AST 47 H D ALT 26 Alkaline Phosphatase 117 Total Protein 7.9 Albumin 4.4 Lipase 53 Urine Color STRAW Urine Appearance CLEAR Urine pH 6.0 Ur Specific [place] <= 1.005 Urine Protein NEG Urine Glucose (UA) NEG Urine Ketones NEG Urine Blood TRACE Urine Nitrite NEG Ur Leukocyte Esterase NEG Urine RBC 0-2 Urine WBC 0-2 Ur Squamous Epith Cells TRACE Calcium Phosphate Cryst TRACE Urine Bacteria 2+ Urine Test Urine Opiates Screen Urine Fentanyl Screen Ur Barbiturates Screen Ur Phencyclidine Scrn Ur Amphetamines Screen U Benzodiazepines Scrn Urine Cocaine Screen U Marijuana (THC) Screen Ethyl Alcohol COVID-19 ([facility]) COVID-19 Clin Com 02/15/22 02/15/22 04:51 04:51 WBC RBC Hgb Hct MCV MCH MCHC RDW Plt Count MPV Immature Gran % (Auto) Neut % (Auto) Lymph % (Auto) [place] % (Auto) Eos % (Auto) Baso % (Auto) Lymph # (Auto) [place] # (Auto) Eos # (Auto) Baso # (Auto) Abs Immat Gran (auto) Absolute Neuts (auto) Absolute Nucleated RBC Nucleated RBC % (auto) Smear Tech's Comments PT INR Sodium Potassium Chloride Carbon Dioxide Anion Gap BUN Creatinine Estim Creat Clear Calc Estimated GFR Random Glucose Calcium Total Bilirubin AST ALT Alkaline Phosphatase Total Protein Albumin Lipase Urine Color Urine Appearance Urine pH Ur Specific [place] Urine Protein Urine Glucose (UA) Urine Ketones Urine Blood Urine Nitrite Ur Leukocyte Esterase Urine RBC Urine WBC Ur Squamous Epith Cells Calcium Phosphate Cryst Urine Bacteria Urine Test NEGATIVE Urine Opiates Screen Not Detected Urine Fentanyl Screen Not Detected Ur Barbiturates Screen Not Detected Ur Phencyclidine Scrn Not Detected Ur Amphetamines Screen Not Detected U Benzodiazepines Scrn POSITIVE H Urine Cocaine Screen Not Detected U Marijuana (THC) Screen POSITIVE H Ethyl Alcohol COVID-19 ([facility]) COVID-19 Clin Com Mental Status Exam Mental Status Exam Patient Appearance: Appropriate Patient Orientation: Person, Place, Time and Situation Mood Description: Blunted Affect Description: Constricted Thought Process: Goal Oriented Judgement: Fair Medications Allergies Allergies Allergy/AdvReac Type Severity Reaction Status Date / Time No Known Allergies Allergy Verified 02/15/22 01:37 [No Known Allergies*] Assessment & Plan Assessment & Plan (1) Alcohol use disorder, severe, dependence: Status: Acute Code(s): F10.20 - Alcohol dependence, uncomplicated Assessment and Plan: * No referrals at this time as patient declines * Risk reduction discussion * Patient verbalizing familiarity with accessing treatment services I spent minutes with the patient and/or on the patient floor today, greater than?50% of which was spent counseling/coordinating care. 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 Mother No problems noted. Family/Other Substance use disorder Surgical History Surgical History History of colonoscopy Hx of endoscopy Social History Social History Housing: House Alcohol intake: current Alcohol intake frequency: 3 or more drinks per day Alcohol type: hard liquor Patient Tobacco Use Status: Current everyday Tobacco user Tobacco use type: Cigarette Cigarettes Per Day: 15 Smoked in Last 30 Days: Yes e-Cigarette/Vaping Use: Never Used Second Hand Smoke Exposure: No Use of substances other than those prescribed or required for medical reasons: No Substance Use Type: Marijuana Advance Directives: No service: No Current occupational status: unemployed
== END 2022-02-15 10:14 | disposition home or self-care (01) ==
PROVIDERS: Emergency Provider Student in an Organized Health Care Education/Training Program; PCP Internal Medicine
DX: K70.30 Alcoholic cirrhosis of liver without ascites (principal); F10.229 Alcohol dependence with intoxication, unspecified; Y90.8 Blood alcohol level of 240 mg/100 ml or more; F17.210 Nicotine dependence, cigarettes, uncomplicated; F12.10 Cannabis abuse, uncomplicated; F16.10 Hallucinogen abuse, uncomplicated; Z20.822 Contact with and (suspected) exposure to COVID-19; Z71.6 Tobacco abuse counseling; Z79.899 Other long term (current) drug therapy
CPT/HCPCS: 36415; 80053; 80307; 81001; 81003; 81025; 82077; 83690; 85025; 85610; 87635; 99285

== ENCOUNTER 2022-04-26 16:04 | Emergency (ER) | payer MEDICARE, SELFPAY ==
[2022-04-26 17:18] VITALS: BP 100/63; PULSE 98; RESP 16; TEMP 36.6; O2SAT 95; BMI 23.3
[2022-04-26 17:36] LABS: MANUAL DIFF FLAG NO
[2022-04-26 17:37] LABS: Basophils Absolute Auto 0.1 X10*3/uL (0.0-0.2); Basophils Percent Auto 0.6 % (0-2); Eosinophils Absolute Auto 0.3 X10*3/uL (0.0-0.4); Eosinophils Percent Auto 3.8 % (0-4); Hematocrit 39.5 % (37.0-47.0); Hemoglobin 13.4 g/dl (12.0-16.0); Imm Gran Abs Auto 0.01 X10*3/uL (0.00-0.03); Imm Gran Pct Auto 0.1 % (0.0-0.4); Lymphocytes Absolute Auto 3.3 X10*3/uL (1.2-4.9); Lymphocytes Percent Auto 39.6 % (20-40); Mean Corpuscular HGB Conc 33.9 g/dl (31.0-35.0); Mean Corpuscular Hemoglobin 32.5 pg (27.0-33.0); Mean Corpuscular Volume 95.9 fL (80.0-98.0); Mean Platelet Volume 10.6 fL (9.4-12.3); Monocytes Absolute Auto 0.6 X10*3/uL (0.1-1.2); Monocytes Percent Auto 7.5 % (2-11); Neutrophils Absolute Auto 4.1 x10*3/uL (2.0-8.3); Neutrophils Percent Auto 48.4 % (45-73); Platelet Count 184 X10*3/uL (160-400); Red Blood Count 4.12 X10*6/uL (4.20-5.50); Red Cell Distribution Width 14.2 % (11.0-16.0); White Blood Count 8.4 X10*3/uL (4.8-10.8)
[2022-04-26 17:49] LABS: Ethanol 60 mg/dL
[2022-04-26 17:53] LABS: Alanine Aminotransferase 14 U/L (0-31); Albumin Level 4.3 g/dL (3.5-5.0); Alkaline Phosphatase 102 U/L (39-117); Anion Gap 14 (12-20); Aspartate Amino Transferase 25 U/L (5-31); Bilirubin Direct 0.2 mg/dL (0.0-0.5); Bilirubin Total 0.4 mg/dL (0.0-1.0); Blood Urea Nitrogen 14 mg/dL (9-16); Calcium 9.6 mg/dL (8.4-10.2); Carbon Dioxide 23 mmol/L (22-29); Chloride 104 mmol/L (96-108); Creatinine Clr Calc Pharmacy 71.6; Estimated Glomerular Filt Rate > 60; Glucose Random 98 mg/dL (60-115); Lipase 24 U/L (8-78); Potassium 3.8 mmol/L (3.3-5.1); Sodium 137 mmol/L (135-145); Total Protein 7.5 g/dL (6.5-8.0)
== END 2022-04-26 19:11 | disposition left against medical advice (07) ==
PROVIDERS: Emergency Provider Emergency Medicine; PCP Internal Medicine
DX: R10.30 Lower abdominal pain, unspecified (principal)
CPT/HCPCS: 36415; 80048; 80076; 82077; 83690; 85025; 99281

== ENCOUNTER 2022-04-26 20:58 | Emergency (ER) | payer MEDICARE, SELFPAY ==
--- NOTE | ~2022-04-26 | XR_ITS ---
EXAMINATION: XR CHEST CLINICAL INFORMATION: Cough COMPARISON: 12/09/2017 TECHNIQUE: Frontal view of the chest was obtained. FINDINGS: No significant abnormality is noted involving the heart, lungs, mediastinum, bony thorax or soft tissues. XR/XR chest 1V IMPRESSION: Unremarkable examination.
--- NOTE | 2022-04-26 21:18 | ECG_ITS ---
Test Reason : ETOH Blood Pressure : / mmHG Vent. Rate : 069 BPM Atrial Rate : 069 BPM P-R Int : 178 ms QRS Dur : 070 ms QT Int : 406 ms P-R-T Axes : 029 007 013 degrees QTc Int : 435 ms Normal sinus rhythm Normal ECG When compared with ECG of 17-MAY-2021 21:58, Vent. rate has decreased BY 39 BPM Referred By: Dalia Morales Electronically Signed By:CRESENCIO CERNA
[2022-04-26 21:22] VITALS: BP 102/61; BP 110/70; PULSE 65; PULSE 84; RESP 20; TEMP 36.7; O2SAT 97; BMI 24.9
--- NOTE | 2022-04-26 21:22 | ED_ITS ---
HPI - Alcohol General Chief Complaint: Abdominal Pain Stated Complaint: ETOH Time Seen by Provider: 04/26/22 21:15 Source: patient and EMS Mode of arrival: EMS Limitations: no limitations History of Present Illness HPI narrative: 46-year-old female presents via EMS for abdominal pain for 1 week, and alcohol abuse. She states that she relapsed a few months ago, and is complaining of abdominal pain, distention, poor p.o. intake nausea and vomiting. She drinks 4- 5 nips per day. She does not report suicidal or homicidal ideation, denies fevers, chills, chest pain or pressure, palpitations, shortness of breath, dysuria, hematuria, or weakness. MD complaint: alcohol intoxication and alcohol dependence Last drink: Hours (ago) (This morning) Amount of alcohol consumed: 4 nips Chronic alcohol use: Yes Previous visits for alcohol intoxication: Yes Recent trauma: No Associated symptoms: nausea, vomiting and abdominal pain Treatments prior to arrival: none Related Data Home Medications Medication Instructions Recorded Confirmed fluoxetine 20 mg capsule 20 mg PO DAILY 04/06/21 01/15/22 Previous Rx's Medication Instructions Recorded buspirone 10 mg tablet 10 mg PO BID 90 days #180 tabs 07/30/21 cyclobenzaprine 10 mg tablet 10 mg PO TID PRN muscle spasm 30 10/06/21 days #90 tabs ibuprofen 600 mg tablet 600 mg PO Q8H PRN pain (scale 01/15/22 score 7-10) #14 tabs lidocaine 5 % topical patch 1 patch topical DAILY #15 ea 01/15/22 hydroxyzine HCl 50 mg tablet 50 mg PO BID PRN itching 30 days 02/24/22 #60 tabs risperidone 4 mg tablet 4 mg PO BEDTIME 90 days #90 tabs 03/10/22 clonidine HCl 0.1 mg tablet 0.1 mg PO BEDTIME 90 days #90 tabs 03/31/22 trazodone 50 mg tablet 50 mg PO BEDTIME PRN sleep 90 days 03/31/22 #90 tabs alprazolam 1 mg tablet 1 mg PO TID PRN anxiety 28 days 04/19/22 #86 tabs Allergies Allergy/AdvReac Type Severity Reaction Status Date / Time No Known Allergies Allergy Verified 04/26/22 17:25 [No Known Allergies*] Review of Systems Review of Systems: Constitutional: No Fever, No Chills ENT/Mouth: No Ear Pain, No Hoarseness, No sore throat Eyes: No Eye Pain, No Swelling, No Redness, No Foreign Body Cardiovascular: No Chest Pain, No SOB Respiratory: No Cough, No Dyspnea Gastrointestinal: Positive Nausea, positive Vomiting, No Diarrhea, positive abdominal Pain Genitourinary: No Dysuria, No Hematuria Musculoskeletal: No joint pain, No Myalgias, No Joint Swelling Skin: No Skin lacerations, No rash Neuro: No Weakness, No Numbness, No Paresthesias, No Loss of Consciousness, No Dizziness, No Headache Psych: Positive alcohol abuse, No Anxiety/Panic, No Depression Heme/Lymph: no easy bruising, no Lymphadenopathy Endocrine: No Polyuria, No Polydipsia Yes all other systems are reviewed and are negative [facility] Past Medical History Attestation statement: The following information was validated with the patient. Source: old records reviewed Medical History Anxiety Chronic liver disease Depression Surgical History History of colonoscopy Hx of endoscopy Family History Family History Father No problems noted. Mother No problems noted. Family/Other Substance use disorder Social History Social History Housing: House Alcohol intake: current Alcohol intake frequency: 3 or more drinks per day Alcohol type: hard liquor Patient Tobacco Use Status: Current everyday Tobacco user Tobacco use type: Cigarette Cigarettes Per Day: 15 e-Cigarette/Vaping Use: Never Used Second Hand Smoke Exposure: No Substance Use Type: Marijuana Advance Directives: No service: No Current occupational status: unemployed Physical Exam ED Vital Signs: Vital Signs - 24 hr 04/26/22 21:22 Temperature 98.0 F Pulse Rate 84 Respiratory Rate 20 Blood Pressure 102/61 Pulse Oximetry 97 Oxygen Delivery Method Room Air BMI result Body Mass Index 24.9 Appearance: Alert. Oriented X3. No acute distress. Eyes: Pupils equal, round and reactive to light. Sclera nonicteric. ENT: Pharynx normal. Moist mucous membranes. Neck: Normal inspection. Neck supple. CVS: Normal heart rate and rhythm. Pulses normal. Respiratory: No respiratory distress. Breath sounds normal. Abdomen: Soft and nontender. No distention or rigidity. Skin: Skin warm and dry. Normal skin color. Normal skin turgor. Extremities: No lower extremity edema. Moves all extremities against resistance. Neuro: No motor deficit. No sensory deficit. Cranial nerves 2-12 intact. Course Course Course Narrative: 46-year-old female presents via EMS for ETOH abuse and abdominal pain with nausea and vomiting. States that she has cirrhosis, and relapse on alcohol a few months ago. She drinks 4-5 nips per day. Patient is alert oriented, answering questions appropriately, sclera nonicteric, no jaundice noted. Abdom en is soft and nontender to palpation, will order labs, ethanol, chest x-ray and EKG. Patient is not interested in detox. 23:33 labs are unremarkable, no indication of pancreatitis, chest x-ray is n egative, EKG is normal sinus with PVC. Discussion with patient and patient's , patient does not want detox, is able to make her own decisions. Patient does not want to provide a urine sample. Plan of care to discharge home and have patient follow-up with detox facility if she chooses. MDM - Alcohol Differential Diagnosis Differential diagnosis: Likely alcohol dependence and alcohol intoxication Medical Records Attestation: I reviewed the patient's medical records. Lab Data Attestation: I reviewed the patient's lab results. Result diagrams: 04/26/22 21:57 04/26/22 21:57 Labs: Lab Results 04/26/22 04/26/22 04/26/22 Range/Units 21:57 21:57 21:57 WBC 7.9 (4.8-10.8) X10*3/uL RBC 3.99 L (4.20-5.50) X10*6/uL Hgb 12.9 (12.0-16.0) g/dl Hct 38.0 (37.0-47.0) % MCV 95.2 (80.0-98.0) fL MCH 32.3 (27.0-33.0) pg MCHC 33.9 (31.0-35.0) g/dl RDW 14.0 (11.0-16.0) % Plt Count 176 (160-400) X10*3/uL MPV 10.8 (9.4-12.3) fL Immature Gran % (Auto) 0.1 (0.0-0.4) % Neut % (Auto) 35.9 L (45-73) % Lymph % (Auto) 52.1 H (20-40) % [place] % (Auto) 6.8 (2-11) % Eos % (Auto) 4.5 H (0-4) % Baso % (Auto) 0.6 (0-2) % Lymph # (Auto) 4.1 (1.2-4.9) X10*3/uL [place] # (Auto) 0.5 (0.1-1.2) X10*3/uL Eos # (Auto) 0.4 (0.0-0.4) X10*3/uL Baso # (Auto) 0.1 (0.0-0.2) X10*3/uL Abs Immat Gran (auto) 0.01 (0.00-0.03) X10*3/uL Absolute Neuts (auto) 2.8 (2.0-8.3) x10*3/uL Absolute Nucleated RBC 0.000 (0.0-0.012) X10*3/uL Nucleated RBC % (auto) 0.0 (0.0-0.2) /100WBC PT 11.3 (9.9-13.0) SEC INR 1.0 (0.9-1.1) APTT 38.1 H (24.1-38.0) SEC Sodium 138 (135-145) mmol/L Potassium 4.2 (3.3-5.1) mmol/L Chloride 103 (96-108) mmol/L Carbon Dioxide 27 (22-29) mmol/L Anion Gap 12 (12-20) BUN 13 (9-16) mg/dL Creatinine 0.80 (0.5-1.4) mg/dL Estim Creat Clear Calc 80.2 Estimated GFR > 60 Random Glucose 98 (60-115) mg/dL Calcium 9.3 (8.4-10.2) mg/dL Magnesium 2.0 (1.6-2.6) mg/dL Total Bilirubin 0.4 (0.0-1.0) mg/dL Direct Bilirubin 0.2 (0.0-0.5) mg/dL AST 30 (5-31) U/L ALT 15 (0-31) U/L Alkaline Phosphatase 94 (39-117) U/L Troponin I High Sens (<3.5-17.0) ng/L Total Protein 7.1 (6.5-8.0) g/dL Albumin 4.0 (3.5-5.0) g/dL Lipase 38 (8-78) U/L Ethyl Alcohol < 10 mg/dL 04/26/22 Range/Units 21:57 WBC (4.8-10.8) X10*3/uL RBC (4.20-5.50) X10*6/uL Hgb (12.0-16.0) g/dl Hct (37.0-47.0) % MCV (80.0-98.0) fL MCH (27.0-33.0) pg MCHC (31.0-35.0) g/dl RDW (11.0-16.0) % Plt Count (160-400) X10*3/uL MPV (9.4-12.3) fL Immature Gran % (Auto) (0.0-0.4) % Neut % (Auto) (45-73) % Lymph % (Auto) (20-40) % [place] % (Auto) (2-11) % Eos % (Auto) (0-4) % Baso % (Auto) (0-2) % Lymph # (Auto) (1.2-4.9) X10*3/uL [place] # (Auto) (0.1-1.2) X10*3/uL Eos # (Auto) (0.0-0.4) X10*3/uL Baso # (Auto) (0.0-0.2) X10*3/uL Abs Immat Gran (auto) (0.00-0.03) X10*3/uL Absolute Neuts (auto) (2.0-8.3) x10*3/uL Absolute Nucleated RBC (0.0-0.012) X10*3/uL Nucleated RBC % (auto) (0.0-0.2) /100WBC PT (9.9-13.0) SEC INR (0.9-1.1) APTT (24.1-38.0) SEC Sodium (135-145) mmol/L Potassium (3.3-5.1) mmol/L Chloride (96-108) mmol/L Carbon Dioxide (22-29) mmol/L Anion Gap (12-20) BUN (9-16) mg/dL Creatinine (0.5-1.4) mg/dL Estim Creat Clear Calc Estimated GFR Random Glucose (60-115) mg/dL Calcium (8.4-10.2) mg/dL Magnesium (1.6-2.6) mg/dL Total Bilirubin (0.0-1.0) mg/dL Direct Bilirubin (0.0-0.5) mg/dL AST (5-31) U/L ALT (0-31) U/L Alkaline Phosphatase (39-117) U/L Troponin I High Sens < 3.5 (<3.5-17.0) ng/L Total Protein (6.5-8.0) g/dL Albumin (3.5-5.0) g/dL Lipase (8-78) U/L Ethyl Alcohol mg/dL Imaging Data Chest x-ray: Attestation: I personally reviewed and interpreted this imaging study as follows: Radiologist's impression: EXAMINATION: XR CHEST CLINICAL INFORMATION: Cough COMPARISON: 12/09/2017 TECHNIQUE: Frontal view of the chest was obtained. FINDINGS: No significant abnormality is noted involving the heart, lungs, mediastinum, bony thorax or soft tissues. XR/XR chest 1V IMPRESSION: Unremarkable examination. ECG Data ECG #1: Attestation: I personally reviewed and interpreted this ECG as follows: ECG interpretation date: 04/26/22 ECG interpretation time: 22:37 Prior ECG tracings: available for review Interpretation: Vent. rate 69 BPM WI interval 178 ms QRS duration 70 ms QT/QTc 406/435 ms P-R-T axes 29 7 13 Normal sinus rhythm Normal ECG When compared with ECG of 17-MAY-2021 21:58, Vent. rate has decreased BY 39 BPM Discharge Plan Discharge Clinical Impression: Alcoholic cirrhosis, Alcohol use disorder, Alcoholism Patient Disposition: Home, Self-Care Instructions: Cirrhosis (ED), Abuse of Alcohol (ED), Alcohol Withdrawal (ED) Additional Instructions: Please consider detox. Your lab values were normal. Lipase was 38, AST was 30, ALT 15, alkaline phosphatase 94. Thank you for choosing this emergency department for evaluation. Please follow-up with primary care physician as needed. Return to the emergency department for any new, concerning, or worsening symptoms. Prescriptions: No Action buspirone 10 mg tablet 10 mg PO BID 90 Days Qty: 180 0RF cyclobenzaprine 10 mg tablet 10 mg PO TID PRN (Reason: muscle spasm) 30 Days Qty: 90 1RF hydroxyzine HCl 50 mg tablet 50 mg PO BID PRN (Reason: itching) 30 Days Qty: 60 1RF risperidone 4 mg tablet 4 mg PO BEDTIME 90 Days Qty: 90 1RF trazodone 50 mg tablet 50 mg PO BEDTIME PRN (Reason: sleep) 90 Days Qty: 90 0RF clonidine HCl 0.1 mg tablet 0.1 mg PO BEDTIME 90 Days Qty: 90 1RF alprazolam 1 mg tablet 1 mg PO TID PRN (Reason: anxiety) 28 Days Qty: 86 0RF lidocaine 5 % adhesive patch,medicated 1 patch topical DAILY Qty: 15 0RF Rx Instructions: leave on most painful area for up to 12 hrs ibuprofen 600 mg tablet 600 mg PO Q8H PRN (Reason: pain (scale score 7-10)) Qty: 14 0RF fluoxetine 20 mg capsule 20 mg PO DAILY Interventions: ED Discharge Assessment Last Done: 04/27/22 00:03 Discharge Date/Time: 04/27/22 00:04
--- NOTE | 2022-04-26 21:41 | PC.NURSE ---
PATIENT GOT CGANGE INTO HOSPITAL ATTIRE BY THIS PCT .
[2022-04-26 22:03] LABS: MANUAL DIFF FLAG NO
[2022-04-26 22:04] LABS: Basophils Absolute Auto 0.1 X10*3/uL (0.0-0.2); Basophils Percent Auto 0.6 % (0-2); Eosinophils Absolute Auto 0.4 X10*3/uL (0.0-0.4); Eosinophils Percent Auto 4.5 % (0-4); Hemoglobin 12.9 g/dl (12.0-16.0); Imm Gran Abs Auto 0.01 X10*3/uL (0.00-0.03); Imm Gran Pct Auto 0.1 % (0.0-0.4); Lymphocytes Absolute Auto 4.1 X10*3/uL (1.2-4.9); Lymphocytes Percent Auto 52.1 % (20-40); Mean Corpuscular HGB Conc 33.9 g/dl (31.0-35.0); Mean Corpuscular Hemoglobin 32.3 pg (27.0-33.0); Mean Corpuscular Volume 95.2 fL (80.0-98.0); Mean Platelet Volume 10.8 fL (9.4-12.3); Monocytes Absolute Auto 0.5 X10*3/uL (0.1-1.2); Monocytes Percent Auto 6.8 % (2-11); Neutrophils Absolute Auto 2.8 x10*3/uL (2.0-8.3); Neutrophils Percent Auto 35.9 % (45-73); Platelet Count 176 X10*3/uL (160-400); Red Blood Count 3.99 X10*6/uL (4.20-5.50); White Blood Count 7.9 X10*3/uL (4.8-10.8)
[2022-04-26 22:20] LABS: Prothrombin Time 11.3 SEC (9.9-13.0)
[2022-04-26 22:23] LABS: Partial Thromboplastin Time 38.1 SEC (24.1-38.0)
[2022-04-26 22:33] LABS: Alanine Aminotransferase 15 U/L (0-31); Alkaline Phosphatase 94 U/L (39-117); Anion Gap 12 (12-20); Aspartate Amino Transferase 30 U/L (5-31); Bilirubin Direct 0.2 mg/dL (0.0-0.5); Bilirubin Total 0.4 mg/dL (0.0-1.0); Blood Urea Nitrogen 13 mg/dL (9-16); Calcium 9.3 mg/dL (8.4-10.2); Carbon Dioxide 27 mmol/L (22-29); Chloride 103 mmol/L (96-108); Creatinine Clr Calc Pharmacy 80.2; Estimated Glomerular Filt Rate > 60; Ethanol < 10 mg/dL; Glucose Random 98 mg/dL (60-115); Lipase 38 U/L (8-78); Potassium 4.2 mmol/L (3.3-5.1); Sodium 138 mmol/L (135-145); Total Protein 7.1 g/dL (6.5-8.0)
[2022-04-26 22:36] LABS: Troponin-I High Sensitivity < 3.5 ng/L (<3.5-17.0)
== END 2022-04-27 00:04 | disposition home or self-care (01) ==
PROVIDERS: Nurse Practitioner Family; Emergency Provider Emergency Medicine; PCP Internal Medicine
DX: F10.229 Alcohol dependence with intoxication, unspecified (principal); K70.30 Alcoholic cirrhosis of liver without ascites; R07.89 Other chest pain; Y90.0 Blood alcohol level of less than 20 mg/100 ml; Z79.899 Other long term (current) drug therapy
CPT/HCPCS: 36415; 71045; 80048; 80076; 82077; 83690; 83735; 84484; 85025; 85610; 85730; 93005; 99281; 99284

== ENCOUNTER 2022-04-30 08:41 | Outpatient (REF) | payer OTHER, SELFPAY ==
--- NOTE | ~2022-04-30 | US_ITS ---
EXAMINATION: US ABDOMEN COMPLETE CLINICAL INFORMATION: Alcoholic cirrhosis of liver without ascites. COMPARISON: Ultrasound abdomen 09/10/2021, ultrasound abdomen 03/23/2021, CT abdomen and pelvis 11/28/2017 TECHNIQUE: Real-time imaging of the abdominal viscera. FINDINGS: PANCREAS: Not well visualized ABDOMINAL AORTA: The proximal, mid, and distal segments are normal in caliber. INFERIOR VENA CAVA: Visualized portions are normal. LIVER: The liver appears cirrhotic with increased heterogeneous echotexture and lobulated irregular surface. No focal liver lesion or biliary duct dilatation. GALLBLADDER: Normal. The gallbladder is physiologically distended without evidence of stones, sludge, polyps, wall thickening or pericholecystic fluid. COMMON BILE DUCT: Normal in caliber measuring 0.5 cm in diameter. RIGHT KIDNEY: Normal. No hydronephrosis. No renal calculi or focal parenchymal lesions. The kidney measures 10.9 cm in maximum dimension. LEFT KIDNEY: Normal. No hydronephrosis. No renal calculi or focal parenchymal lesions. The kidney measures 10.4 cm in maximum dimension. SPLEEN: Normal. The spleen measures 9.1 cm in maximum dimension. FREE FLUID: None. US/US abdomen complete IMPRESSION: Cirrhotic-appearing liver. No ascites. Limited visualization of the pancreas.
--- NOTE | ~2022-04-30 | XR_ITS ---
EXAMINATION: XR LUMBOSACRAL SPINE CLINICAL INFORMATION: Low back pain, unspecified. COMPARISON: Lumbar radiographs 12/18/2015. TECHNIQUE: Three views of the lumbosacral spine. FINDINGS: Normal lumbar segmentation with 5 [id number] lumbar vertebrae of normal height and normal lumbar lordosis. No lumbar vertebral compression, spondylolisthesis, or destructive process. There are degenerative disc changes L5-S1 with disc narrowing and endplate sclerosis and mild vertebral scarring. There is also mild degenerative change at L2-L3. The SI joints and visualized sacrum are unremarkable. XR/XR lumbar spine 2-3V IMPRESSION: -Degenerative disc changes L5-S1 and lesser at L2-L3. -No lumbar vertebral compression, spondylolisthesis, or destructive process.
[2022-04-30 10:39] LABS: Alanine Aminotransferase 19 U/L (0-31); Albumin Level 4.2 g/dL (3.5-5.0); Alkaline Phosphatase 97 U/L (39-117); Anion Gap 12 (12-20); Aspartate Amino Transferase 29 U/L (5-31); Bilirubin Direct < 0.2 mg/dL (0.0-0.5); Bilirubin Total 0.3 mg/dL (0.0-1.0); Blood Urea Nitrogen 14 mg/dL (9-16); Calcium 8.9 mg/dL (8.4-10.2); Carbon Dioxide 26 mmol/L (22-29); Chloride 105 mmol/L (96-108); Estimated Glomerular Filt Rate > 60; Glucose Random 94 mg/dL (60-115); Potassium 3.8 mmol/L (3.3-5.1); Sodium 139 mmol/L (135-145); Total Protein 7.3 g/dL (6.5-8.0)
== END 2022-04-30 08:42 | disposition home or self-care (01) ==
LOC: HO.US 08:41
PROVIDERS: Internal Medicine Gastroenterology; PCP Internal Medicine; Visit Provider Internal Medicine Gastroenterology
DX: M54.50 Low back pain, unspecified (principal); K75.81 Nonalcoholic steatohepatitis (NASH); K70.30 Alcoholic cirrhosis of liver without ascites
CPT/HCPCS: 36415; 72100; 76700; 80053; 82248

== ENCOUNTER 2022-09-17 15:13 | Emergency (ER) | payer OTHER, SELFPAY ==
[2022-09-17 15:15] VITALS: BP 125/83; PULSE 110; RESP 16; TEMP 36.4; O2SAT 100; BMI 20.5
--- NOTE | 2022-09-17 16:04 | ED_ITS ---
HPI - Burn/Smoke Inhalation General Chief complaint: Burn/Smoke Inhalation Stated complaint: Burned R Index Finger 09/15/22 Time Seen by Provider: 09/17/22 15:29 Source: patient Mode of arrival: ambulatory Limitations: no limitations History of Present Illness HPI Narrative: Patient is a 38-year-old female who presents emergency department for evaluation of a burn to the right index finger. She states 2 days ago she burned her finger on a wood burning stove. She has been applying Silvadene cream at home. However she now is having redness extending up her arm which is most concerning for her, in addition to pain. She denies any fevers, chills, numbness, tingling. Related Data Home Medications Medication Instructions Recorded Confirmed fluoxetine 20 mg capsule 20 mg PO DAILY 04/06/21 01/15/22 Previous Rx's Medication Instructions Recorded buspirone 10 mg tablet 10 mg PO BID 90 days #180 tabs 07/30/21 cyclobenzaprine 10 mg tablet 10 mg PO TID PRN muscle spasm 30 10/06/21 days #90 tabs ibuprofen 600 mg tablet 600 mg PO Q8H PRN pain (scale 01/15/22 score 7-10) #14 tabs lidocaine 5 % topical patch 1 patch topical DAILY #15 ea 01/15/22 hydroxyzine HCl 50 mg tablet 50 mg PO BID PRN itching 30 days 02/24/22 #60 tabs risperidone 4 mg tablet 4 mg PO BEDTIME 90 days #90 tabs 03/10/22 trazodone 50 mg tablet 50 mg PO BEDTIME PRN sleep 90 days 03/31/22 #90 tabs alprazolam 1 mg tablet 1 mg PO TID PRN anxiety 28 days 09/06/22 #86 tabs clonidine HCl 0.1 mg tablet 0.1 mg PO BEDTIME 90 days #90 tabs 09/06/22 Allergies Allergy/AdvReac Type Severity Reaction Status Date / Time No Known Allergies Allergy Verified 09/17/22 15:18 [No Known Allergies*] Review of Systems Review of Systems: Skin: As noted in HPI Yes all other systems are reviewed and are negative PMFSH Past Medical History Attestation statement: The following information was validated with the patient. 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 Mother No problems noted. Family/Other Substance use disorder Social History Social History Housing: House Alcohol intake: current Alcohol intake frequency: 3 or more drinks per day Alcohol type: hard liquor Patient Tobacco Use Status: Current everyday Tobacco user Tobacco use type: Cigarette Cigarettes Per Day: 15 e-Cigarette/Vaping Use: Never Used Second Hand Smoke Exposure: No Substance Use Type: Marijuana Advance Directives: No Advance Directives Information Provided: No service: No Current occupational status: unemployed Physical Exam Vital Signs: Vital Signs: Last Vital Signs Temp 97.6 F 09/17/22 15:15 Pulse 110 H 09/17/22 15:15 Resp 16 09/17/22 15:15 BP 125/83 09/17/22 15:15 Pulse Ox 100 09/17/22 15:15 O2 Del Method 09/17/22 15:15 BMI result Body Mass Index 20.5 Appearance: Alert.?Oriented to person, place and time. No acute distress.?Normal affect. Neck: Normal inspection.? Neck supple.?? CVS: Heart sounds normal. Normal heart rate and rhythm.? Pulses normal.?? Respiratory: No respiratory distress.? Lung sounds clear to auscultation bilaterally?? Abdomen: Soft and non-tender. ? Skin: Skin warm and dry.? Normal skin color.? Extremities: No lower extremity edema.? Partial-thickness burn to right dorsal hand 2nd digit DIP, with erythematous streak extending up the posterior arm Neuro: Moves all extremities spontaneously. Sensation intact bilaterally. Ambulates with normal steady gait. Course Course Course Narrative: Patient is a 46-year-old female presents to the emergency department for jennifer luation of a burn to the right 2nd digit as noted in HPI. Physical examination concerning for infectious lymphangitis. She is tachycardic at the time examination, suspect secondary to pain, currently reporting pain 8/10, has not taken any Tylenol or ibuprofen. She is afebrile. Does not meet sirs criteria. Discussed plan of care for discharge home, warm moist compresses for 10-15 minutes 3-4 times daily, elevation of the arm above the level of the chest, oral antibiotics. Denies past history of MRSA. Reviewed worrisome signs and symptoms to return back to the emergency department for. Outpatient follow-up with primary care provider within the next 5 days. All questions answered, zee ent discharged home in stable condition. Discharge Plan Discharge Clinical Impression: Lymphangitis, Partial thickness burn of finger of right hand Patient Disposition: Home, Self-Care Instructions: Lymphangitis (ED) Additional Instructions: As discussed, apply warm moist compress for 10-15 minutes 3-4 times daily to the area. Elevate the arm above the level of the chest. You can take ibuprofen 200 mg, 3 tablets (600mg) every 6-8 hours as needed for pain, in addition to Tylenol 500 mg, 2 tablets (1,000mg) every 4-6 hours as needed for pain, but not to exceed 3 doses daily (3,000mg). You have been given a prescription for oral antibiotic, please complete this entire course Follow-up with your primary care provider within 5 days Return to the emergency department any new or worsening symptoms or concerns. ? Prescriptions: No Action buspirone 10 mg tablet 10 mg PO BID 90 Days Qty: 180 0RF cyclobenzaprine 10 mg tablet 10 mg PO TID PRN (Reason: muscle spasm) 30 Days Qty: 90 1RF hydroxyzine HCl 50 mg tablet 50 mg PO BID PRN (Reason: itching) 30 Days Qty: 60 1RF risperidone 4 mg tablet 4 mg PO BEDTIME 90 Days Qty: 90 1RF trazodone 50 mg tablet 50 mg PO BEDTIME PRN (Reason: sleep) 90 Days Qty: 90 0RF alprazolam 1 mg tablet 1 mg PO TID PRN (Reason: anxiety) 28 Days Qty: 86 0RF clonidine HCl 0.1 mg tablet 0.1 mg PO BEDTIME 90 Days Qty: 90 1RF lidocaine 5 % adhesive patch,medicated 1 patch topical DAILY Qty: 15 0RF Rx Instructions: leave on most painful area for up to 12 hrs ibuprofen 600 mg tablet 600 mg PO Q8H PRN (Reason: pain (scale score 7-10)) Qty: 14 0RF fluoxetine 20 mg capsule 20 mg PO DAILY Referrals: Joan Torres MD [Primary Care Provider] -
[2022-09-17] MEDS: cephALEXin 500 MG CAPSULE PO (16:22)
[2022-09-17] MEDS: Ibuprofen 600 MG TABLET PO (16:22)
== END 2022-09-17 16:23 | disposition home or self-care (01) ==
PROVIDERS: Emergency Provider Emergency Medicine Emergency Medical Services; PCP Internal Medicine
DX: T23.221A Burn of second degree of single right finger (nail) except thumb, initial encounter (principal); T31.0 Burns involving less than 10% of body surface; R00.0 Tachycardia, unspecified; X15.0XXA Contact with hot stove (kitchen), initial encounter; Y93.9 Activity, unspecified; Y92.009 Unspecified place in unspecified non-institutional (private) residence as the place of occurrence of the external cause; Y99.9 Unspecified external cause status
CPT/HCPCS: 99283

== ENCOUNTER 2022-10-11 07:56 | Outpatient (REF) | payer OTHER, SELFPAY ==
--- NOTE | ~2022-10-11 | US_ITS ---
EXAMINATION: US ABDOMEN LIMITED WITH LIVER ELASTOGRAPHY CLINICAL INFORMATION: Nonalcoholic steatohepatitis. COMPARISON: Ultrasound abdomen 04/30/2022. TECHNIQUE: Real-time imaging of the abdominal viscera. Noninvasive ultrasound liver fibrosis assessment is performed using Stalin ElastPQ point quantification shear wave elastography (2D-SWE) with a C5-2 MHz transducer. Multiple elastography samples are obtained. FINDINGS: PANCREAS: Normal. The visualized pancreatic head and body are normal in appearance. The remainder of the pancreas is obscured from visualization by the overlying bowel gas. LIVER: The liver demonstrates normal size, lobulated contour and mild increased echogenicity. No focal lesion or intrahepatic biliary duct dilatation. The right lobe measures 16.7 cm in length. The left lobe measures 9.6 cm in length. Portal flow is hepatopedal. Shear wave liver elastography median stiffness is 1.62 m/s (reference: normal median stiffness is 1.3 m/s or less). IQR/median stiffness to assess sampling precision is 0.06 (reference: good quality data set is IQR/median stiffness of 0.15 or less). GALLBLADDER: Normal. The gallbladder is physiologically distended without evidence of stones, sludge, polyps, wall thickening or pericholecystic fluid. COMMON BILE DUCT: Normal in caliber measuring 0.4 cm in diameter. RIGHT KIDNEY: Normal. No hydronephrosis. No renal calculi or focal parenchymal lesions. The kidney measures 9.4 cm in maximum dimension. FREE FLUID: None. US/US abdomen szymanski w elastography IMPRESSION: 1. Lobulated hepatic contour with slight increased echogenicity. No change in the cirrhotic pattern from the previous study. 2. Liver elastography: Median liver stiffness measures 1.62 m/s corresponding to cACLD (ruled out). REFERENCE: Society of Radiologists in Ultrasound Liver Stiffness Thresholds (2020): LIVER STIFFNESS THRESHOLDS: *Liver Stiffness equal or less than 1.3 m/s: High probability of being normal. *Liver Stiffness less than 1.7 m/s: In the absence of other known clinical signs, rules out compensated advanced chronic liver disease. *Liver Stiffness 1.7-2.1 m/s: Suggestive of compensated advanced chronic liver disease but need further test for confirmation. *Liver Stiffness over 2.1 m/s: Rules in compensated advanced chronic liver disease. *Liver Stiffness over 2.4 m/s: Suggestive of clinically significant portal hypertension. QUALITY OF DATA SET: *IQR/Median value equal or less than 0.15 implies a quality data set. *IQR/Median value over 0.15 implies a poor quality data set. SIGNIFICANT CHANGE FROM PRIOR EXAM: Significant change if liver stiffness measurement is 10% or greater from prior exam. OTHER CONSIDERATIONS: The stage of liver fibrosis may be overestimated in the setting of acute hepatitis, liver inflammation, elevated liver function tests, hepatic vascular congestion, obstructive cholestasis, non-fasting state, and infiltrative diseases such as amyloidosis and lymphoma. In some patients with NAFLD, the liver stiffness thresholds for compensated advanced chronic liver disease may be lower. In causes other than viral hepatitis and NAFLD, liver stiffness thresholds are not well established.
== END 2022-10-11 07:57 | disposition home or self-care (01) ==
LOC: HO.US 07:56
PROVIDERS: Visit Provider Internal Medicine Gastroenterology
DX: F10.20 Alcohol dependence, uncomplicated (principal); K70.30 Alcoholic cirrhosis of liver without ascites; K75.81 Nonalcoholic steatohepatitis (NASH)
CPT/HCPCS: 76705; 76981

== ENCOUNTER 2023-01-07 13:04 | Outpatient (REF) | payer OTHER, SELFPAY ==
[2023-01-14 02:04] LABS: HPV mRNA E6/E7 rflx Not Detected (Not Detected)
== END 2023-01-07 13:05 | disposition home or self-care (01) ==
LOC: HO.LNP 13:04
PROVIDERS: PCP Internal Medicine; Visit Provider Advanced Practice Midwife
DX: Z01.419 Encounter for gynecological examination (general) (routine) without abnormal findings (principal); Z79.899 Other long term (current) drug therapy
CPT/HCPCS: 87624; 88142

== ENCOUNTER 2023-02-02 10:19 | Outpatient (REF) | payer OTHER, SELFPAY ==
[2023-02-02 10:51] LABS: MANUAL DIFF FLAG NO
[2023-02-02 11:07] LABS: Basophils Absolute Auto 0.1 X10*3/uL (0.0-0.2); Basophils Percent Auto 1.2 % (0-2); Eosinophils Absolute Auto 0.5 X10*3/uL (0.0-0.4); Eosinophils Percent Auto 6.9 % (0-4); Hematocrit 42.4 % (37.0-47.0); Hemoglobin 14.2 g/dl (12.0-16.0); Imm Gran Abs Auto 0.01 X10*3/uL (0.00-0.03); Imm Gran Pct Auto 0.2 % (0.0-0.4); Lymphocytes Absolute Auto 2.8 X10*3/uL (1.2-4.9); Lymphocytes Percent Auto 41.4 % (20-40); Mean Corpuscular HGB Conc 33.5 g/dl (31.0-35.0); Mean Corpuscular Hemoglobin 32.5 pg (27.0-33.0); Mean Platelet Volume 11.2 fL (9.4-12.3); Monocytes Absolute Auto 0.4 X10*3/uL (0.1-1.2); Monocytes Percent Auto 6.2 % (2-11); Neutrophils Absolute Auto 2.9 x10*3/uL (2.0-8.3); Neutrophils Percent Auto 44.1 % (45-73); Platelet Count 288 X10*3/uL (160-400); Red Blood Count 4.37 X10*6/uL (4.20-5.50); Red Cell Distribution Width 13.6 % (11.0-16.0); White Blood Count 6.7 X10*3/uL (4.8-10.8)
[2023-02-02 11:14] LABS: Estimated Average Glucose 108 mg/dL; Hemoglobin A1c % 5.4 %
[2023-02-02 11:33] LABS: Appearance Urine Clear; Color Urine Yellow; Glucose Urine UA Negative (Negative); Leukocyte Esterase Urine Negative (Negative); Nitrite Urine Negative (Negative); Specific Gravity - Urine 1.025 (1.005-1.025); Urine Blood Negative (Negative); Urine Ketones Negative (Negative); Urine Protein Negative (Neg-Trace)
[2023-02-02 12:37] LABS: Alanine Aminotransferase 18 U/L (0-31); Albumin Level 4.4 g/dL (3.5-5.0); Alkaline Phosphatase 123 U/L (39-117); Anion Gap 14 (12-20); Aspartate Amino Transferase 23 U/L (5-31); Bilirubin Total 0.5 mg/dL (0.0-1.0); Blood Urea Nitrogen 15 mg/dL (9-16); Carbon Dioxide 26 mmol/L (22-29); Chloride 106 mmol/L (96-108); Estimated Glomerular Filt Rate > 60; Glucose Random 123 mg/dL (60-115); Potassium 4.7 mmol/L (3.3-5.1); Sodium 141 mmol/L (135-145); Total Protein 7.5 g/dL (6.5-8.0)
[2023-02-02 12:47] LABS: Ferritin 70 ng/mL (10-250); Vitamin B12 531 pg/mL (200-900); Vitamin D 25-OH Total 45.9 ng/mL (>30)
[2023-02-07 19:38] LABS: Zinc 77 mcg/dL (60-130)
[2023-02-08 18:59] LABS: Nicotinamide <20 ng/mL; Vit B3 - Nicotinic Acid <20 ng/mL; Vitamin B5 (Pantothenic Acid) <40 ng/mL (<275)
[2023-02-09 15:24] LABS: Vitamin A 54 mcg/dL (38-98)
[2023-02-10 02:22] LABS: Alpha-Tocopherol 16.8 mg/L (5.7-19.9)
[2023-02-10 05:59] LABS: Vitamin B1 10 nmol/L (8-30)
[2023-02-10 16:13] LABS: Vitamin B6 30.9 ng/mL (2.1-21.7)
[2023-02-10 21:38] LABS: Vitamin K1 293 pg/mL (130-1500)
== END 2023-02-02 10:20 | disposition home or self-care (01) ==
LOC: HO.LAB 10:19
PROVIDERS: Internal Medicine Gastroenterology; PCP Internal Medicine; Visit Provider Dentist Pediatric Dentistry
DX: Z13.1 Encounter for screening for diabetes mellitus (principal); F10.20 Alcohol dependence, uncomplicated; K70.30 Alcoholic cirrhosis of liver without ascites; K75.81 Nonalcoholic steatohepatitis (NASH); R30.0 Dysuria
CPT/HCPCS: 36415; 80053; 81003; 82180; 82306; 82607; 82728; 82746; 83036; 84207; 84425; 84446; 84590; 84591; 84597; 84630; 85025

== ENCOUNTER → 2023-02-04 09:02 | Outpatient (BNVA) | payer OTHER, SELFPAY | PROVIDERS: PCP Internal Medicine; Visit Provider Internal Medicine Gastroenterology | DX: Z13.89 Encounter for screening for other disorder (principal) ==

== ENCOUNTER 2023-02-08 12:59 | Emergency (ER) | payer OTHER, SELFPAY ==
--- NOTE | 2023-02-08 13:11 | ED.GENADULT ---
HPI - General Adult General Chief complaint: General Medical Stated complaint: HBP Time Seen by Provider: 02/08/23 16:05 Related Data Home Medications Medication Instructions Recorded Confirmed lactulose 10 gram/15 mL oral 15 ml PO DAILY 02/04/23 02/10/23 solution Previous Rx's Medication Instructions Recorded clonidine HCl 0.1 mg tablet 0.1 mg PO BEDTIME 90 days #90 tabs 09/06/22 benzonatate 100 mg capsule 100 mg PO BID PRN cough #14 caps 10/29/22 alprazolam 1 mg tablet 1 mg PO TID PRN anxiety 28 days 02/07/23 #86 tabs trazodone 50 mg tablet 50 mg PO BEDTIME PRN sleep 90 days 02/07/23 #90 tabs lisinopril 2.5 mg tablet 2.5 mg PO DAILY #30 tabs 02/10/23 Allergies Allergy/AdvReac Type Severity Reaction Status Date / Time No Known Allergies Allergy Verified 02/10/23 15:52 [No Known Allergies*] [facility] Past Medical History Medical History Alcohol abuse Alcohol use disorder Alcoholic cirrhosis Alcoholism Anxiety Anxiety Chronic liver disease Depression Easy bruising 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 Mother No problems noted. Family/Other Substance use disorder Maternal Grandmother Ovarian cancer Maternal Aunt Ovarian cancer Social History Social History Housing: House Alcohol intake: current Alcohol intake frequency: 3 or more drinks per day Alcohol type: hard liquor Patient Tobacco Use Status: Current everyday Tobacco user Tobacco use type: Cigarette Cigarettes Per Day: 15 e-Cigarette/Vaping Use: Never Used Second Hand Smoke Exposure: No Substance Use Type: Marijuana service: No Current occupational status: unemployed Cognitive needs: No Hearing needs: No Vision needs: No Physical Exam ED Vital Signs: BMI result Body Mass Index 23.1 Course Course Course Narrative: RME--47yo F with PMHx ETOH abuse, anxiety, depression, cirrhosis, c/o HTN noted at GI office visit on Tuesday with continued elevated BP while checking at home. Reports GRAHAM's, denies CP. Admits to daily ETOH use, states has been cutting back, last drink this morning. Does have hx withdrawal & seizures. Reports this doesn't feel like withdrawal at this time. BP 149/98 in triage. No appreciable tremors/fasiculations EKG, labs, CIWA ordered Medical Decision Making Lab Data 02/08/23 14:26 02/08/23 14:26 Labs: Lab Results 02/08/23 02/08/23 Range/Units 14:26 14:26 WBC 9.5 (4.8-10.8) X10*3/uL RBC 4.57 (4.20-5.50) X10*6/uL Hgb 14.7 (12.0-16.0) g/dl Hct 43.0 (37.0-47.0) % MCV 94.1 (80.0-98.0) fL MCH 32.2 (27.0-33.0) pg MCHC 34.2 (31.0-35.0) g/dl RDW 13.7 (11.0-16.0) % Plt Count 240 (160-400) X10*3/uL MPV 10.9 (9.4-12.3) fL Immature Gran % (Auto) 0.1 (0.0-0.4) % Neut % (Auto) 27.7 L (45-73) % Lymph % (Auto) 58.8 H (20-40) % [place] % (Auto) 6.2 (2-11) % Eos % (Auto) 6.5 H (0-4) % Baso % (Auto) 0.7 (0-2) % Lymph # (Auto) 5.6 H (1.2-4.9) X10*3/uL [place] # (Auto) 0.6 (0.1-1.2) X10*3/uL Eos # (Auto) 0.6 H (0.0-0.4) X10*3/uL Baso # (Auto) 0.1 (0.0-0.2) X10*3/uL Abs Immat Gran (auto) 0.01 (0.00-0.03) X10*3/uL Absolute Neuts (auto) 2.6 (2.0-8.3) x10*3/uL Absolute Nucleated RBC 0.000 (0.0-0.012) X10*3/uL Nucleated RBC % (auto) 0.0 (0.0-0.2) /100WBC Smear Tech's Comments VERIFIED Sodium 145 (135-145) mmol/L Potassium 4.0 (3.3-5.1) mmol/L Chloride 105 (96-108) mmol/L Carbon Dioxide 29 (22-29) mmol/L Anion Gap 15 (12-20) BUN 10 (9-16) mg/dL Creatinine 0.82 (0.5-1.4) mg/dL Estim Creat Clear Calc 71.7 Estimated GFR > 60 Random Glucose 86 (60-115) mg/dL Calcium 10.1 (8.4-10.2) mg/dL Magnesium 1.8 (1.6-2.6) mg/dL Total Bilirubin 0.3 (0.0-1.0) mg/dL Direct Bilirubin 0.1 (0.0-0.5) mg/dL AST 31 (5-31) U/L ALT 25 (0-31) U/L Alkaline Phosphatase 147 H (39-117) U/L Total Protein 7.9 (6.5-8.0) g/dL Albumin 4.6 (3.5-5.0) g/dL Lipase 56 (8-78) U/L Ethyl Alcohol 161 mg/dL Discharge Plan Discharge Clinical Impression: Hypertension Patient Disposition: Elopement Prescriptions: No Action clonidine HCl 0.1 mg tablet 0.1 mg PO BEDTIME 90 Days Qty: 90 1RF alprazolam 1 mg tablet 1 mg PO TID PRN (Reason: anxiety) 28 Days Qty: 86 0RF trazodone 50 mg tablet 50 mg PO BEDTIME PRN (Reason: sleep) 90 Days Qty: 90 0RF benzonatate 100 mg capsule 100 mg PO BID PRN (Reason: cough) Qty: 14 0RF lisinopril 2.5 mg tablet 2.5 mg PO DAILY Qty: 30 0RF lactulose 10 gram/15 mL solution 15 ml PO DAILY Interventions: ED Discharge Assessment Last Done: 02/08/23 16:11 Discharge Date/Time: 02/08/23 16:12
[2023-02-08 13:12] VITALS: BP 149/98; PULSE 113; RESP 18; TEMP 36.5; O2SAT 96; BMI 23.1
--- NOTE | 2023-02-08 13:16 | ECG_ITS ---
Test Reason : htn Blood Pressure : / mmHG Vent. Rate : 109 BPM Atrial Rate : 109 BPM P-R Int : 148 ms QRS Dur : 072 ms QT Int : 320 ms P-R-T Axes : 026 -08 039 degrees QTc Int : 430 ms Sinus tachycardia Septal infarct , age undetermined Abnormal ECG When compared with ECG of 26-APR-2022 22:37, Vent. rate has increased BY 40 BPM Referred By: Praveena Saldana Electronically Signed By:SIMONE PINTO MD
[2023-02-08 14:38] LABS: Basophils Absolute Auto 0.1 X10*3/uL (0.0-0.2); Basophils Percent Auto 0.7 % (0-2); Eosinophils Absolute Auto 0.6 X10*3/uL (0.0-0.4); Eosinophils Percent Auto 6.5 % (0-4); Hemoglobin 14.7 g/dl (12.0-16.0); Imm Gran Abs Auto 0.01 X10*3/uL (0.00-0.03); Imm Gran Pct Auto 0.1 % (0.0-0.4); Lymphocytes Absolute Auto 5.6 X10*3/uL (1.2-4.9); Lymphocytes Percent Auto 58.8 % (20-40); MANUAL DIFF FLAG SCAN; Mean Corpuscular HGB Conc 34.2 g/dl (31.0-35.0); Mean Corpuscular Hemoglobin 32.2 pg (27.0-33.0); Mean Corpuscular Volume 94.1 fL (80.0-98.0); Mean Platelet Volume 10.9 fL (9.4-12.3); Monocytes Absolute Auto 0.6 X10*3/uL (0.1-1.2); Monocytes Percent Auto 6.2 % (2-11); Neutrophils Absolute Auto 2.6 x10*3/uL (2.0-8.3); Neutrophils Percent Auto 27.7 % (45-73); Platelet Count 240 X10*3/uL (160-400); Red Blood Count 4.57 X10*6/uL (4.20-5.50); Red Cell Distribution Width 13.7 % (11.0-16.0); SCAN SMEAR FLAG 1; White Blood Count 9.5 X10*3/uL (4.8-10.8)
[2023-02-08 14:54] LABS: Alanine Aminotransferase 25 U/L (0-31); Albumin Level 4.6 g/dL (3.5-5.0); Alkaline Phosphatase 147 U/L (39-117); Anion Gap 15 (12-20); Aspartate Amino Transferase 31 U/L (5-31); Bilirubin Direct 0.1 mg/dL (0.0-0.5); Bilirubin Total 0.3 mg/dL (0.0-1.0); Blood Urea Nitrogen 10 mg/dL (9-16); Calcium 10.1 mg/dL (8.4-10.2); Carbon Dioxide 29 mmol/L (22-29); Chloride 105 mmol/L (96-108); Creatinine Clr Calc Pharmacy 71.7; Estimated Glomerular Filt Rate > 60; Ethanol 161 mg/dL; Glucose Random 86 mg/dL (60-115); Lipase 56 U/L (8-78); Magnesium 1.8 mg/dL (1.6-2.6); Sodium 145 mmol/L (135-145); Total Protein 7.9 g/dL (6.5-8.0)
[2023-02-08 14:58] LABS: SLIDE REVIEW VERIFIED
== END 2023-02-08 16:12 | disposition left against medical advice (07) ==
PROVIDERS: Physician Assistant; Emergency Provider Emergency Medicine; PCP Internal Medicine
DX: R00.0 Tachycardia, unspecified (principal); I10 Essential (primary) hypertension; Z79.899 Other long term (current) drug therapy
CPT/HCPCS: 36415; 80048; 80076; 82077; 83690; 83735; 85025; 93005; 99283

== ENCOUNTER 2023-02-08 20:09 | Emergency (ER) | payer OTHER, SELFPAY ==
[2023-02-08 21:24] VITALS: BP 155/105; PULSE 111; RESP 20; TEMP 36.1; O2SAT 95; BMI 45.3
[2023-02-09] VITALS (7 sets, daily range): BP systolic 86–140; BP diastolic 50–101; PULSE 95–108; RESP 13–20; TEMP 36.6–36.7; O2SAT 92–98
--- NOTE | 2023-02-09 01:29 | PC.NURSE ---
pt belonging searched by security, pt changed into hospital attire
--- NOTE | 2023-02-09 02:06 | ED_ITS ---
HPI - General Adult General Chief complaint: General Medical Stated complaint: high blood pressure Time Seen by Provider: 02/09/23 01:40 Source: patient Mode of arrival: ambulatory Limitations: no limitations History of Present Illness HPI narrative: Patient alcoholic with history of hypertension came here to go to detox. Also noticed to have high blood pressure in 160s. Patient was here at 14:00 left without being seen later patient was seen in the waiting area drinking and taking Xanax last drink was about 20 minutes ago and blood pressure was 155/105. Patient denies any chest pain no leg swelling no palpitation Related Data Home Medications Medication Instructions Recorded Confirmed lactulose 10 gram/15 mL oral 15 ml PO DAILY 02/04/23 solution Previous Rx's Medication Instructions Recorded clonidine HCl 0.1 mg tablet 0.1 mg PO BEDTIME 90 days #90 tabs 09/06/22 benzonatate 100 mg capsule 100 mg PO BID PRN cough #14 caps 10/29/22 alprazolam 1 mg tablet 1 mg PO TID PRN anxiety 28 days 02/07/23 #86 tabs trazodone 50 mg tablet 50 mg PO BEDTIME PRN sleep 90 days 02/07/23 #90 tabs Allergies Allergy/AdvReac Type Severity Reaction Status Date / Time No Known Allergies Allergy Verified 02/08/23 13:15 [No Known Allergies*] Review of Systems Review of Systems: Yes all other systems are reviewed and are negative [facility] Past Medical History Medical History Alcohol abuse Alcohol use disorder Alcoholic cirrhosis Alcoholism Anxiety Anxiety Chronic liver disease Depression Easy bruising 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 Mother No problems noted. Family/Other Substance use disorder Maternal Grandmother Ovarian cancer Maternal Aunt Ovarian cancer Social History Social History Housing: House Alcohol intake: current Alcohol intake frequency: 3 or more drinks per day Alcohol type: hard liquor Patient Tobacco Use Status: Current everyday Tobacco user Tobacco use type: Cigarette Cigarettes Per Day: 15 Smoked in Last 30 Days: Yes e-Cigarette/Vaping Use: Never Used Second Hand Smoke Exposure: No Use of substances other than those prescribed or required for medical reasons: No Substance Use Type: Marijuana Advance Directives: No Advance Directives Information Provided: Yes Patient : No service: No Current occupational status: unemployed Cognitive needs: No Hearing needs: No Vision needs: No Physical Exam ED Vital Signs: Vital Signs - 24 hr 02/08/23 21:24 02/09/23 01:07 02/09/23 01:23 Temperature 97 F Pulse Rate 111 H 104 H 107 H Respiratory Rate 20 16 20 Blood Pressure 155/105 H 127/101 H 140/95 H Pulse Oximetry 95 95 97 Oxygen Delivery Method Room Air Room Air Room Air 02/09/23 04:17 02/09/23 04:21 Temperature 98.1 F Pulse Rate 106 H Respiratory Rate 16 Blood Pressure 86/50 L 93/58 L Pulse Oximetry 92 Oxygen Delivery Method Room Air BMI result Body Mass Index 45.3 Appearance: Alert. Oriented X3. No acute distress. ETOH+++ Eyes: PERRLA, No Nystagmus ENT: Pharynx normal. Oral Mucosa moist Neck: Normal inspection. Neck supple. CVS: Sinus tachycardia no murmur/rubs Pulses normal. Respiratory: No respiratory distress. Equal air entry bilateral, no wheezing/rales/rhonchi Abdomen: Soft and nontender. Bowel sounds are present, no mass palpable, no CVA tenderness Skin: Skin warm and dry. Normal skin color. Normal skin turgor. Extremities: No lower extremity edema. No calf tenderness Neuro: Oriented X 3. No motor deficit. No sensory deficit.No cerebellar signs , cranial nerves II-XII intact Medications Administered Discontinued Medications Generic Name Dose Route Start Last Admin Trade Name Freq PRN Reason Stop Dose Admin Sodium Chloride 1,000 mls @ 999 mls/hr 02/09/23 02:07 02/09/23 03:44 Ns IV 02/09/23 03:07 Infused .Q1H1M ONE Infusion Sodium Chloride 1,000 mls @ 999 mls/hr 02/09/23 05:42 02/09/23 05:51 Ns IV 02/09/23 06:42 999 mls/hr .Q1H1M ONE Administration Medical Decision Making Medical Decision Making MDM Narrative: Patient with alcohol abuse with history of been sober for 5 years after went to detox in 2014 requesting to go to detox again vitals are stable labs are stable which were done earlier, medically cleared to go to detox will consult care team Lab Data MDM Lab Attestation statement: I reviewed the patient's lab results. Labs: Lab Results 02/09/23 02/09/23 Range/Units 02:24 02:24 Ethyl Alcohol 260 mg/dL COVID-19 ([facility]) Negative (Negative) COVID-19 Clin Com See Note Discharge Plan Discharge Clinical Impression: Alcohol abuse Patient Disposition: Still a Patient Prescriptions: No Action clonidine HCl 0.1 mg tablet 0.1 mg PO BEDTIME 90 Days Qty: 90 1RF alprazolam 1 mg tablet 1 mg PO TID PRN (Reason: anxiety) 28 Days Qty: 86 0RF trazodone 50 mg tablet 50 mg PO BEDTIME PRN (Reason: sleep) 90 Days Qty: 90 0RF benzonatate 100 mg capsule 100 mg PO BID PRN (Reason: cough) Qty: 14 0RF lactulose 10 gram/15 mL solution 15 ml PO DAILY
--- NOTE | 2023-02-09 02:07 | ECG_ITS ---
Test Reason : tachycardia Blood Pressure : / mmHG Vent. Rate : 107 BPM Atrial Rate : 107 BPM P-R Int : 162 ms QRS Dur : 070 ms QT Int : 338 ms P-R-T Axes : 053 003 046 degrees QTc Int : 451 ms Sinus tachycardia Otherwise normal ECG When compared with ECG of 08-FEB-2023 13:31, No significant change was found Referred By: Issac Frost Electronically Signed By:SIMONE PINTO MD
[2023-02-09] MEDS: 0.9 % Sodium Chloride 1,000 ML 999 ML IV ×2 (02:41→05:51)
[2023-02-09 02:56] LABS: COVID-19 Test Negative (Negative); IDNOW Serial# 6674DD1D
[2023-02-09 02:59] LABS: Ethanol 260 mg/dL
--- NOTE | 2023-02-09 05:50 | PC.NURSE ---
Pt assessed hypotensive, Dr aware, 2nd liter NS infusing
--- NOTE | 2023-02-09 10:34 | PC.NURSE ---
JONATHAN 1. pt's at bedside requested pt's belongings. reports that he cant find his cell phone and wallet. tech went to POD to check for belongings.
--- NOTE | 2023-02-09 11:10 | MHC.RECOVSUP ---
Met with pt in ED20 for potential ATS. Pt informs she would like to just go home, and that her goes to meetings and she will go with him if needed. Pt denies any questions or concerns at this time. Provider is aware.
== END 2023-02-09 11:31 | disposition home or self-care (01) ==
PROVIDERS: Emergency Provider Internal Medicine; PCP Student in an Organized Health Care Education/Training Program
DX: F10.10 Alcohol abuse, uncomplicated (principal); I10 Essential (primary) hypertension; Y90.8 Blood alcohol level of 240 mg/100 ml or more; K70.30 Alcoholic cirrhosis of liver without ascites; Z20.822 Contact with and (suspected) exposure to COVID-19
CPT/HCPCS: 36415; 82077; 87635; 93005; 96360; 96361; 99285

== ENCOUNTER 2023-02-13 15:01 | Emergency (ER) | payer OTHER, SELFPAY ==
--- NOTE | ~2023-02-13 | XR_ITS ---
EXAMINATION: Bilateral knees.. CLINICAL INDICATION: Recent fall with knee pain. COMPARISON: Left knee 02/13/2023 TECHNIQUE: 4 views each knee. FINDINGS: LEFT KNEE: There is no visible acute fracture, dislocation or subluxation seen. No bony erosive changes. No abnormal joint effusion. RIGHT KNEE: The tricompartment joint space is preserved. There are no loose bodies, periarticular spurring of bony erosive changes. No evidence of joint effusion. XR/XR knee LT 4V IMPRESSION: Unremarkable bilateral knee exam.
--- NOTE | ~2023-02-13 | CT_ITS ---
EXAMINATION: CT brain and CT cervical spine without contrast. CLINICAL INDICATION: Intoxicated. Recent fall. TECHNIQUE: 5 mm thin axial and reformatted 2 mm thin sagittal and coronal images of brain were obtained without contrast. DLP 837. Subsequently axial 3 mm thin and reformatted 2 mm thin sagittal and coronal images of cervical spine were obtained. DLP [address] examination was performed using dose optimization technique as appropriate, variously including the following: Automated exposure control Adjustment of MA and/or KV according to patient size(this includes techniques or standardized protocols for targeted exams where dose is matched to indication/reason for exam; extremities or head. Use of iterative reconstruction techniques. FINDINGS: BRAIN: There is no acute intra-axial, extra-axial bleed, masses or midline shift. There is no acute infarction in evolution. There is no edema. The lateral ventricles are symmetrical in size and configuration without enlargement. Bone windows reveal no calvarial abnormality. There is no scalp soft tissue abnormality. There is mild mucoperiosteal thickening involving right sphenoid, bilateral ethmoid, maxillary and frontal sinuses. CERVICAL SPINE: On sagittal reconstructed images there is maintained cervical lordosis. The vertebral heights, alignment and disc heights are normal. The craniovertebral junction and the C1-C2 alignment is normal. No visible acute fracture, dislocation or subluxation seen. The prevertebral and paravertebral soft tissues are normal. There is widely patent. Visualized parotid, submandibular and thyroid lobes are symmetric and normal. No abnormal neck lymph nodes seen. The lung apices is clear. CT/CT cervical spine wo IV con IMPRESSION: 1. No acute intracranial process seen. 2. There is no acute fracture, dislocation or subluxation in cervical spine. 3. Chronic pansinusitis.
--- NOTE | ~2023-02-13 | XR_ITS ---
EXAMINATION: Bilateral knees.. CLINICAL INDICATION: Recent fall with knee pain. COMPARISON: Left knee 02/13/2023 TECHNIQUE: 4 views each knee. FINDINGS: LEFT KNEE: There is no visible acute fracture, dislocation or subluxation seen. No bony erosive changes. No abnormal joint effusion. RIGHT KNEE: The tricompartment joint space is preserved. There are no loose bodies, periarticular spurring of bony erosive changes. No evidence of joint effusion. XR/XR knee RT 4V IMPRESSION: Unremarkable bilateral knee exam.
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
[2023-02-13 15:17] VITALS: BP 141/87; PULSE 107; RESP 16; TEMP 36.6; O2SAT 96; BMI 22.6
--- NOTE | 2023-02-13 15:20 | ECG_ITS ---
Test Reason : CHECK QT Blood Pressure : / mmHG Vent. Rate : 092 BPM Atrial Rate : 092 BPM P-R Int : 170 ms QRS Dur : 066 ms QT Int : 356 ms P-R-T Axes : 070 011 043 degrees QTc Int : 440 ms Normal sinus rhythm Normal ECG When compared with ECG of 09-FEB-2023 02:25, No significant change was found Referred By: Fallon Collado Electronically Signed By:CRESENCIO CERNA
[2023-02-13 17:11] LABS: Appearance Urine Clear; Color Urine Yellow; Glucose Urine UA Negative (Negative); Leukocyte Esterase Urine Negative (Negative); Nitrite Urine Negative (Negative); PH 7.5 (5.0-9.0); Specific Gravity - Urine <= 1.005 (1.005-1.025); Urine Blood Negative (Negative); Urine Ketones Negative (Negative); Urine Protein Negative (Neg-Trace)
[2023-02-13 17:19] LABS: Amphetamine Screen Urine Not Detected (Not Detect); Barbiturates, Urine Not Detected (Not Detect); Benzodiazepines Screen Urine POSITIVE (Not Detect); Cannabinoid Screen Urine POSITIVE (Not Detect); Cocaine Screen Urine Not Detected (Not Detect); Fentanyl, urine Not Detected (Not Detect); Opiate Screen Urine Not Detected (Not Detect); Phencyclidine Screen Urine Not Detected (Not Detect)
[2023-02-13 17:21] LABS: MANUAL DIFF FLAG NO
[2023-02-13 17:22] LABS: Basophils Absolute Auto 0.1 X10*3/uL (0.0-0.2); Basophils Percent Auto 0.7 % (0-2); Eosinophils Absolute Auto 0.5 X10*3/uL (0.0-0.4); Eosinophils Percent Auto 5.2 % (0-4); Hematocrit 40.3 % (37.0-47.0); Hemoglobin 13.7 g/dl (12.0-16.0); Imm Gran Abs Auto 0.02 X10*3/uL (0.00-0.03); Imm Gran Pct Auto 0.2 % (0.0-0.4); Lymphocytes Absolute Auto 4.8 X10*3/uL (1.2-4.9); Lymphocytes Percent Auto 50.7 % (20-40); Mean Corpuscular Hemoglobin 32.4 pg (27.0-33.0); Mean Corpuscular Volume 95.3 fL (80.0-98.0); Monocytes Absolute Auto 0.6 X10*3/uL (0.1-1.2); Monocytes Percent Auto 6.2 % (2-11); Neutrophils Absolute Auto 3.5 x10*3/uL (2.0-8.3); Platelet Count 190 X10*3/uL (160-400); Red Blood Count 4.23 X10*6/uL (4.20-5.50); Red Cell Distribution Width 13.4 % (11.0-16.0); White Blood Count 9.4 X10*3/uL (4.8-10.8)
[2023-02-13 17:28] LABS: INTERNATIONAL NORM RATIO 1.1 (0.9-1.1); Prothrombin Time 12.1 SEC (10.0-13.1)
[2023-02-13 17:38] LABS: Ethanol 210 mg/dL
[2023-02-13 17:40] LABS: Alanine Aminotransferase 23 U/L (0-31); Alkaline Phosphatase 125 U/L (39-117); Anion Gap 12 (12-20); Aspartate Amino Transferase 37 U/L (5-31); Bilirubin Total 0.3 mg/dL (0.0-1.0); Blood Urea Nitrogen 13 mg/dL (9-16); Calcium 8.4 mg/dL (8.4-10.2); Carbon Dioxide 25 mmol/L (22-29); Chloride 112 mmol/L (96-108); Creatinine Clr Calc Pharmacy 69.1; Estimated Glomerular Filt Rate > 60; Glucose Random 95 mg/dL (60-115); Lipase 38 U/L (8-78); Magnesium 2.6 mg/dL (1.6-2.6); Potassium 3.7 mmol/L (3.3-5.1); Sodium 145 mmol/L (135-145); Total Protein 6.8 g/dL (6.5-8.0)
[2023-02-13 17:51] LABS: Influenza A PCR NEGATIVE (Negative); Influenza B PCR NEGATIVE (Negative); Resp Syncy Virus RNA Qual PCR NEGATIVE (Negative); SARS COV2 PCR INHOUSE NEGATIVE (Negative)
[2023-02-13 18:58] LABS: Acetone, serum QL Negative (Negative)
--- NOTE | 2023-02-13 19:15 | MHC.RECOVSUP ---
? Reason for consult:Recovery Support o Current location: [facility] o Identified substance use concern: AUD - Support ? Plan: o Follow up tomorrow ? ? Additional information: Patient was not cleared to be seen by voice coach at this time. ?
== END 2023-02-13 23:58 | disposition home or self-care (01) ==
PROVIDERS: Physician Assistant; Physician Assistant Medical; Emergency Provider Internal Medicine; PCP Internal Medicine
DX: F10.129 Alcohol abuse with intoxication, unspecified (principal); Y90.7 Blood alcohol level of 200-239 mg/100 ml; F33.1 Major depressive disorder, recurrent, moderate; R07.89 Other chest pain; R51.9 Headache, unspecified; M54.2 Cervicalgia; M25.562 Pain in left knee; M25.561 Pain in right knee; I10 Essential (primary) hypertension; Z20.822 Contact with and (suspected) exposure to COVID-19; Z20.828 Contact with and (suspected) exposure to other viral communicable diseases; Z79.899 Other long term (current) drug therapy
CPT/HCPCS: 0241U; 36415; 70450; 72125; 73564; 80053; 80307; 81003; 82009; 82077; 83690; 83735; 85025; 85610; 93005; 99284

== ENCOUNTER 2023-02-14 15:22 | Emergency (ER) | payer OTHER, SELFPAY ==
[2023-02-14 15:34] VITALS: BP 115/80; PULSE 100; RESP 18; TEMP 36.7; O2SAT 95; BMI 20.5
--- NOTE | 2023-02-14 15:35 | ED_ITS ---
HPI - Alcohol General Chief Complaint: ETOH/Substance Use Stated Complaint: detox Related Data Home Medications Medication Instructions Recorded Confirmed alprazolam 1 mg tablet 1 mg PO TID PRN anxiety 02/13/23 02/13/23 clonidine HCl 0.1 mg tablet 0.1 mg PO BEDTIME 02/13/23 02/13/23 lisinopril 2.5 mg tablet 2.5 mg PO DAILY 02/13/23 02/13/23 trazodone 50 mg tablet 50 mg PO BEDTIME 02/13/23 02/13/23 Allergies Allergy/AdvReac Type Severity Reaction Status Date / Time No Known Allergies Allergy Verified 02/10/23 15:52 [No Known Allergies*] [facility] Past Medical History Medical History Alcohol abuse Alcohol use disorder Alcoholic cirrhosis Alcoholism Anxiety Anxiety Chronic liver disease Depression Easy bruising 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 Mother No problems noted. Family/Other Substance use disorder Maternal Grandmother Ovarian cancer Maternal Aunt Ovarian cancer Social History Social History Housing: House Alcohol intake: current Alcohol intake frequency: 3 or more drinks per day Alcohol type: hard liquor Patient Tobacco Use Status: Current everyday Tobacco user Tobacco use type: Cigarette Cigarettes Per Day: 15 e-Cigarette/Vaping Use: Never Used Second Hand Smoke Exposure: No Substance Use Type: Marijuana Advance Directives: No Advance Directives Information Provided: No service: No Current occupational status: unemployed Cognitive needs: No Hearing needs: No Vision needs: No Physical Exam ED Vital Signs: Vital Signs - 24 hr 02/14/23 15:34 Temperature 98.0 F Pulse Rate 100 Respiratory Rate 18 Blood Pressure 115/80 Pulse Oximetry 95 Oxygen Delivery Method Room Air BMI result Body Mass Index 20.5 Course Course Course Narrative: RME - 47 yo female with history of alcohol abuse/dependence, HTN, alcoholic cirrhosis who presents to the ER for evaluation of ETOH dependence and seeking detox. She was here yesterday and left, states today she knows she needs to stay. She admits to taking 5 lisinopril 2.5 mg pills about 30 minutes ago due to heart racing. Denies self harm attempt and she was trying to get better. No SI. Last drink 30 minutes ago, slurring speech in triage. BP stable in triage, nontoxic dose of lisinopril of 12.5 mg. 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 Discharge Plan Discharge Clinical Impression: Alcohol abuse Patient Disposition: Elopement Prescriptions: No Action clonidine HCl 0.1 mg tablet 0.1 mg PO BEDTIME trazodone 50 mg tablet 50 mg PO BEDTIME alprazolam 1 mg tablet 1 mg PO TID PRN (Reason: anxiety) lisinopril 2.5 mg tablet 2.5 mg PO DAILY Interventions: ED Discharge Assessment Last Done: 02/14/23 18:02 Discharge Date/Time: 02/14/23 16:00
== END 2023-02-14 16:00 | disposition left against medical advice (07) ==
PROVIDERS: Emergency Provider Emergency Medicine
DX: F10.10 Alcohol abuse, uncomplicated (principal); Y90.9 Presence of alcohol in blood, level not specified; I10 Essential (primary) hypertension; K70.30 Alcoholic cirrhosis of liver without ascites; F17.210 Nicotine dependence, cigarettes, uncomplicated; F12.90 Cannabis use, unspecified, uncomplicated; Z79.899 Other long term (current) drug therapy
CPT/HCPCS: 99282

== ENCOUNTER 2023-03-13 22:38 | Emergency (ER) | payer MEDICARE, SELFPAY ==
--- NOTE | ~2023-03-13 | CT_ITS ---
EXAMINATION: NONCONTRAST HEAD CT NONCONTRAST CERVICAL SPINE CT INDICATION INFORMATION: Fall, pain COMPARISON: 02/13/2023 TECHNIQUE: Separate noncontrast CT examinations of the head and cervical spine were performed. Coronal head CT images and coronal and sagittal cervical spine images were created at the technologist workstation. DLP: 900 mGy-cm DOSE LOWERING TECHNIQUES: This CT examination was performed using dose optimization techniques as appropriate, variously including the following: - Automated exposure control - Adjustment of mA and/or kV according to patient size (this includes techniques or standardized protocols for targeted exams were dose is matched to indication/reason for exam; i.e. extremities or head) - Use of iterative reconstruction technique FINDINGS: Head: There is no evidence of acute intracranial hemorrhage or territorial infarction. No abnormal mass-effect or midline shift is seen. Sam to white matter differentiation is well preserved. No extra-axial fluid collections are identified. The ventricles are normal in size. Mild volume loss is noted. The osseous structures and soft tissues are normal. There is mucosal thickening of the bilateral ethmoid air cells and frontal sinuses. The mastoid air cells are well-aerated. Cervical spine: There is anatomic alignment of the vertebral bodies and posterior elements. Vertebral body heights are maintained. Intervertebral disc spaces are preserved. No evidence of acute fracture. No prevertebral soft tissue swelling. Visualized portions of the lung apices are unremarkable. The thyroid gland is unremarkable. CT/CT cervical spine wo IV con IMPRESSION: No acute findings identified in the head or cervical spine.
--- NOTE | ~2023-03-13 | CT_ITS ---
EXAMINATION: NONCONTRAST HEAD CT NONCONTRAST CERVICAL SPINE CT INDICATION INFORMATION: Fall, pain COMPARISON: 02/13/2023 TECHNIQUE: Separate noncontrast CT examinations of the head and cervical spine were performed. Coronal head CT images and coronal and sagittal cervical spine images were created at the technologist workstation. DLP: 900 mGy-cm DOSE LOWERING TECHNIQUES: This CT examination was performed using dose optimization techniques as appropriate, variously including the following: - Automated exposure control - Adjustment of mA and/or kV according to patient size (this includes techniques or standardized protocols for targeted exams were dose is matched to indication/reason for exam; i.e. extremities or head) - Use of iterative reconstruction technique FINDINGS: Head: There is no evidence of acute intracranial hemorrhage or territorial infarction. No abnormal mass-effect or midline shift is seen. Sam to white matter differentiation is well preserved. No extra-axial fluid collections are identified. The ventricles are normal in size. Mild volume loss is noted. The osseous structures and soft tissues are normal. There is mucosal thickening of the bilateral ethmoid air cells and frontal sinuses. The mastoid air cells are well-aerated. Cervical spine: There is anatomic alignment of the vertebral bodies and posterior elements. Vertebral body heights are maintained. Intervertebral disc spaces are preserved. No evidence of acute fracture. No prevertebral soft tissue swelling. Visualized portions of the lung apices are unremarkable. The thyroid gland is unremarkable. CT/CT head/brain wo IV con IMPRESSION: No acute findings identified in the head or cervical spine.
--- NOTE | ~2023-03-13 | CT_ITS ---
EXAMINATION: CT ABDOMEN AND PELVIS WITH CONTRAST CLINICAL INFORMATION: Right upper and left upper quadrant COMPARISON: 07/04/2015 TECHNIQUE: Multidetector volumetric images were obtained from the superior aspect of the liver through the pubic symphysis following administration 85 mL of Omnipaque 350 intravenous contrast. Sagittal and coronal reformatted images were obtained on the technologist's workstation. Oral contrast: No This CT examination was performed using dose optimization techniques as appropriate, variously including the following: *Automated exposure control *Adjustment of mA and/or kV according to patient size (this includes techniques or standardized protocols for targeted exams where dose is matched to indication/reason for exam; i.e. extremities or head) *Use of iterative reconstruction technique DLP: 622 mGy-cm FINDINGS: LUNG BASES: Mild bronchial wall thickening. No pneumonitis or parenchymal consolidation. LIVER, GALLBLADDER, AND BILIARY TREE: Morphologically cirrhotic liver. No focal liver lesions. No intra or extrahepatic biliary ductal dilatation. Normal gallbladder. PANCREAS: Unremarkable. SPLEEN: Unremarkable. ADRENAL GLANDS: Unremarkable. KIDNEYS AND URETERS: The kidneys are normal in size, shape, and attenuation. No hydronephrosis, hydroureter, or calculi seen. No perinephric stranding. BLADDER: Unremarkable. GASTROINTESTINAL TRACT: The small and large bowel are unremarkable. The appendix is unremarkable. ABDOMINAL WALL: No significant hernia is appreciated. LYMPH NODES: Normal. VASCULAR: Aorta mildly atherosclerotic but normal caliber. Patent vascular structures. PELVIC VISCERA: Uterus and adnexa unremarkable. OSSEOUS STRUCTURES: Unremarkable. CT/CT abdomen pelvis w IV con IMPRESSION: * No acute findings within the abdomen or pelvis to explain the patient's symptomatology. * Morphologically cirrhotic liver.
[2023-03-13 22:41] VITALS: BP 101/65; BP 118/78; PULSE 86; PULSE 88; RESP 18; TEMP 36.8; O2SAT 93; O2SAT 96; BMI 22.6
--- NOTE | 2023-03-13 22:54 | ECG_ITS ---
Test Reason : ETOH Blood Pressure : / mmHG Vent. Rate : 086 BPM Atrial Rate : 086 BPM P-R Int : 186 ms QRS Dur : 074 ms QT Int : 356 ms P-R-T Axes : 057 005 039 degrees QTc Int : 426 ms Normal sinus rhythm Normal ECG When compared with ECG of 13-FEB-2023 19:58, No significant change was found Referred By: Esteban Lechuga Electronically Signed By:Gino Ruiz
--- NOTE | 2023-03-13 22:56 | ED_ITS ---
HPI - Alcohol General Chief Complaint: ETOH/Substance Use Stated Complaint: seeking detox Time Seen by Provider: 03/13/23 22:49 Source: patient and EMS Mode of arrival: EMS Limitations: other (Acute alcohol intoxication) History of Present Illness HPI narrative: This is a 47-year-old female history of alcohol use disorder, hypertension, diabetes presenting to the emergency department requesting detox and complaining of abdominal pain. Patient reports she has 8-10 nips of vodka a day, last drink was 20 minutes prior to arrival. Patient reports diffuse abdominal pain however worse in the upper region. Pain is constant severe. Denies nausea and vomiting. Patient reports that she has job interviews coming up and is certain that she would like detox from alcohol. Patient reports she has a history of alcohol withdrawal. Patient tells me she has been falling a lot lately, no head strike or loss of consciousness however poor historian. Patient denies chest pain, shortness of breath, fevers, chills, headache, vision changes, dizziness and weakness. When I asked her if she is suicidal or homicidal she laughs, patient poor historian as she is intoxicated. Related Data Home Medications Medication Instructions Recorded Confirmed trazodone 50 mg tablet 50 mg PO BEDTIME 02/13/23 02/13/23 Previous Rx's Medication Instructions Recorded clonidine HCl 0.1 mg tablet 0.1 mg PO BEDTIME PRN anxiety #30 02/25/23 tabs lisinopril 2.5 mg tablet 2.5 mg PO DAILY #30 tabs 03/02/23 alprazolam 1 mg tablet 1 mg PO TID PRN anxiety #86 tabs 03/08/23 Allergies Allergy/AdvReac Type Severity Reaction Status Date / Time No Known Allergies Allergy Verified 02/10/23 15:52 [No Known Allergies*] Review of Systems Review of Systems: Constitutional : No Weight loss, No Fever, No Chills, No Fatigue, No Malaise ENT/Mouth : No sore throat, No Rhinorrhea Eyes: No Eye Pain, No Swelling, No Redness Cardiovascular : No Chest Pain, No SOB, No Dyspnea on Exertion, No Orthopnea, No Edema, No Palpitations Respiratory : No Cough, No Sputum, No Wheezing Gastrointestinal : No Nausea, No Vomiting, No Diarrhea, No Constipation, + abdominal Pain, No Hematochezia, No Melena Genitourinary : No Dysuria, No Urinary Frequency, No Hematuria, Musculoskeletal : No joint pain, No Myalgias, No Joint Swelling Skin : No Skin Lesions, No rash Neuro : No Weakness, No Numbness, No Dizziness, No Headache Psych : No Anxiety/Panic, No Depression All other systems reviewed and are negative Yes all other systems are reviewed and are negative [facility] Past Medical History Attestation statement: The following information was validated with the patient. 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 Mother No problems noted. Family/Other Substance use disorder Maternal Grandmother Ovarian cancer Maternal Aunt Ovarian cancer Social History Social History Housing: House Alcohol intake: current Alcohol intake frequency: 3 or more drinks per day Alcohol type: hard liquor Patient Tobacco Use Status: Current everyday Tobacco user Tobacco use type: Cigarette Cigarettes Per Day: 15 Smoked in Last 30 Days: No e-Cigarette/Vaping Use: Never Used Second Hand Smoke Exposure: No Use of substances other than those prescribed or required for medical reasons: No Substance Use Type: Marijuana Advance Directives: No Advance Directives Information Provided: Yes service: No Current occupational status: unemployed Cognitive needs: No Hearing needs: No Vision needs: No Physical Exam ED Vital Signs: Vital Signs - 24 hr 03/13/23 22:41 Temperature 98.3 F Pulse Rate 88 Respiratory Rate 18 Blood Pressure 101/65 Pulse Oximetry 96 Oxygen Delivery Method Room Air BMI result Body Mass Index 22.6 vss Appearance: Alert.? Oriented X3.? No acute distress.? Head: Normocephalic, atraumatic, no step-offs or deformities Eyes: Pupils equal, round and reactive to light.? CVS: Normal heart rate and rhythm.? Pulses normal.? Respiratory: No respiratory distress.? Breath sounds normal.? Abdomen: Soft and diffuse abdominal tenderness. Normal BS throughout Skin: Skin warm and dry.? Normal skin color.? Normal skin turgor.? Extremities: No lower extremity edema.? No calf ttp. 5/5 strength to bilateral upper and lower extremities Neuro: Oriented X 3.? No motor deficit.? No sensory deficit. CN 2-12 intact . Normal [id number], tonc-eo-aavb, steady tandem gait Course Reevaluation(s) Reevaluation #1: CBC appears to be within patient's baseline. Chemistry unremarkable. Lipase within normal limits. Ethanol level 212 consistent with acute alcohol intoxicat ion. CT of head, abdomen pelvis pending. Time: 23:53 Reevaluation #2: CT of abd and pelvis pending sign out to Dr. Xiao Medical Decision Making Medical Decision Making [facility] Narrative: 2300 37-year-old female presents with diffuse abdominal pain but worsen upper region and requesting alcohol detox. Reports frequent falls due to alcohol intoxication Physical exam diffuse abdominal tenderness. Likely alcohol intoxication. Will rule out electrolyte abnormalities, dehydration, pancreatitis. I do not suspect acute abdomen, diverticulitis, cholecystitis, appendicitis. Unlikely stroke, posterior stroke, intracranial hemorrhage Will obtain labs, imaging, urine. Differential Diagnosis Differential Diagnoses: The differential diagnosis associated with the pres entation includes Likely alcohol intoxication. Will rule out electrolyte abnormalities, dehydration, pancreatitis. I do not suspect acute abdomen, diverticulitis, cholecystitis, appendicitis. Unlikely stroke, posterior stroke, intracranial hemorrhage Admission/Observation Consideration of admission/observation: Escalation of care including admission/observation considered Unlikely Lab Data [facility] Lab Attestation statement: I reviewed the patient's lab results. 03/13/23 23:23 03/13/23 23:23 Labs: Lab Results 03/13/23 03/13/23 03/13/23 Range/Units 23:23 23:23 23:23 WBC 8.4 (4.8-10.8) X10*3/uL RBC 4.07 L (4.20-5.50) X10*6/uL Hgb 13.4 (12.0-16.0) g/dl Hct 39.0 (37.0-47.0) % MCV 95.8 (80.0-98.0) fL MCH 32.9 (27.0-33.0) pg MCHC 34.4 (31.0-35.0) g/dl RDW 15.2 (11.0-16.0) % Plt Count 230 (160-400) X10*3/uL MPV 10.3 (9.4-12.3) fL Immature Gran % (Auto) 0.2 (0.0-0.4) % Neut % (Auto) 30.6 L (45-73) % Lymph % (Auto) 56.7 H (20-40) % Hart % (Auto) 6.3 (2-11) % Eos % (Auto) 5.1 H (0-4) % Baso % (Auto) 1.1 (0-2) % Lymph # (Auto) 4.8 (1.2-4.9) X10*3/uL Hart # (Auto) 0.5 (0.1-1.2) X10*3/uL Eos # (Auto) 0.4 (0.0-0.4) X10*3/uL Baso # (Auto) 0.1 (0.0-0.2) X10*3/uL Abs Immat Gran (auto) 0.02 (0.00-0.03) X10*3/uL Absolute Neuts (auto) 2.6 (2.0-8.3) x10*3/uL Absolute Nucleated RBC 0.000 (0.0-0.012) X10*3/uL Nucleated RBC % (auto) 0.0 (0.0-0.2) /100WBC Sodium 145 (135-145) mmol/L Potassium 3.8 (3.3-5.1) mmol/L Chloride 109 H (96-108) mmol/L Carbon Dioxide 26 (22-29) mmol/L Anion Gap 14 (12-20) BUN 12 (9-16) mg/dL Creatinine 0.82 (0.5-1.4) mg/dL Estim Creat Clear Calc 77.7 Estimated GFR > 60 Random Glucose 84 (60-115) mg/dL Calcium 9.0 D (8.4-10.2) mg/dL Magnesium 2.3 (1.6-2.6) mg/dL Total Bilirubin 0.3 (0.0-1.0) mg/dL AST 41 H (5-31) U/L ALT 31 (0-31) U/L Alkaline Phosphatase 126 H (39-117) U/L Total Protein 7.2 (6.5-8.0) g/dL Albumin 4.1 (3.5-5.0) g/dL Lipase 51 (8-78) U/L Ethyl Alcohol 212 mg/dL COVID-19 ([facility]) Negative (Negative) COVID-19 Clin Com See Note Independent Interpretation I performed an independent interpretation of an: CT Scan Radiology Impression Discussion of test interpretation with radiology: I have reviewed the radiologist's reading. Core Measures AMI core measures followed: Yes Measure exclusions: not indicated Critical Care Time Critical Care Time Critical Care Time: No Discharge Plan Discharge Clinical Impression: Alcohol use disorder, Abdominal pain Patient Disposition: Still a Patient Prescriptions: No Action clonidine HCl 0.1 mg tablet 0.1 mg PO BEDTIME PRN (Reason: anxiety) Qty: 30 0RF lisinopril 2.5 mg tablet 2.5 mg PO DAILY Qty: 30 2RF alprazolam 1 mg tablet 1 mg PO TID PRN (Reason: anxiety) Qty: 86 0RF trazodone 50 mg tablet 50 mg PO BEDTIME
[2023-03-13 23:30] LABS: MANUAL DIFF FLAG NO
[2023-03-13 23:31] LABS: Basophils Absolute Auto 0.1 X10*3/uL (0.0-0.2); Basophils Percent Auto 1.1 % (0-2); Eosinophils Absolute Auto 0.4 X10*3/uL (0.0-0.4); Eosinophils Percent Auto 5.1 % (0-4); Hemoglobin 13.4 g/dl (12.0-16.0); Imm Gran Abs Auto 0.02 X10*3/uL (0.00-0.03); Imm Gran Pct Auto 0.2 % (0.0-0.4); Lymphocytes Absolute Auto 4.8 X10*3/uL (1.2-4.9); Lymphocytes Percent Auto 56.7 % (20-40); Mean Corpuscular HGB Conc 34.4 g/dl (31.0-35.0); Mean Corpuscular Hemoglobin 32.9 pg (27.0-33.0); Mean Corpuscular Volume 95.8 fL (80.0-98.0); Mean Platelet Volume 10.3 fL (9.4-12.3); Monocytes Absolute Auto 0.5 X10*3/uL (0.1-1.2); Monocytes Percent Auto 6.3 % (2-11); Neutrophils Absolute Auto 2.6 x10*3/uL (2.0-8.3); Neutrophils Percent Auto 30.6 % (45-73); Platelet Count 230 X10*3/uL (160-400); Red Blood Count 4.07 X10*6/uL (4.20-5.50); Red Cell Distribution Width 15.2 % (11.0-16.0); White Blood Count 8.4 X10*3/uL (4.8-10.8)
[2023-03-13 23:42] LABS: COVID-19 Test Negative (Negative); IDNOW Serial# BCCEAD1C
[2023-03-13 23:48] LABS: Alanine Aminotransferase 31 U/L (0-31); Albumin Level 4.1 g/dL (3.5-5.0); Alkaline Phosphatase 126 U/L (39-117); Anion Gap 14 (12-20); Aspartate Amino Transferase 41 U/L (5-31); Bilirubin Total 0.3 mg/dL (0.0-1.0); Blood Urea Nitrogen 12 mg/dL (9-16); Carbon Dioxide 26 mmol/L (22-29); Chloride 109 mmol/L (96-108); Creatinine Clr Calc Pharmacy 77.7; Estimated Glomerular Filt Rate > 60; Ethanol 212 mg/dL; Glucose Random 84 mg/dL (60-115); Lipase 51 U/L (8-78); Magnesium 2.3 mg/dL (1.6-2.6); Potassium 3.8 mmol/L (3.3-5.1); Sodium 145 mmol/L (135-145); Total Protein 7.2 g/dL (6.5-8.0)
[2023-03-14] MEDS: iohexoL 350 MG/ML 100 ML INFUS..BTL 85 ML IV (00:26)
[2023-03-14 05:03] LABS: Appearance Urine Clear; Color Urine Yellow; Glucose Urine UA Negative (Negative); Leukocyte Esterase Urine Negative (Negative); Nitrite Urine Negative (Negative); PH 5.5 (5.0-9.0); Specific Gravity - Urine >= 1.030 (1.005-1.025); UMIC TRIGGER UACC YES; Urine Blood Trace (Negative); Urine Ketones Negative (Negative); Urine Protein Negative (Neg-Trace)
[2023-03-14 05:08] LABS: Bacteria Urine Trace (None Seen); Hyaline Casts Urine 0-2 /LPF (0-2); RBC Urine 0-2 /HPF (0-2); WBC Urine 0-5 /HPF (0-5)
[2023-03-14 05:13] LABS: Amphetamine Screen Urine Not Detected (Not Detect); Barbiturates, Urine Not Detected (Not Detect); Benzodiazepines Screen Urine POSITIVE (Not Detect); Cannabinoid Screen Urine Not Detected (Not Detect); Cocaine Screen Urine Not Detected (Not Detect); Fentanyl, urine Not Detected (Not Detect); Opiate Screen Urine Not Detected (Not Detect); Phencyclidine Screen Urine Not Detected (Not Detect)
[2023-03-14 06:10] VITALS: BP 88/53; PULSE 76; RESP 18; TEMP 36.6; O2SAT 97
--- NOTE | 2023-03-14 06:10 | PC.NURSE ---
BP 88/53, pt asymptomatic at this time. Xiao aware, 1 L NS given IV at this time. Will continue to monitor.
[2023-03-14] MEDS: 0.9 % Sodium Chloride 1,000 ML 999 ML IV (06:22)
[2023-03-14 06:32] VITALS: BP 86/59
[2023-03-14 06:40] VITALS: BP 90/60
[2023-03-14 06:51] VITALS: BP 96/66
[2023-03-14 07:18] VITALS: BP 90/51; PULSE 63; RESP 18; O2SAT 94
--- NOTE | 2023-03-14 09:05 | PC.NURSE ---
eric at bedside speaking to pt, plan to d/c home
--- NOTE | 2023-03-14 09:34 | MHC.RECOVRN ---
Met with pt prior to dc as pt had expressed interest in ATS. Pt laying in bed, awake, easily engages in conversation. Pt declines ATS at this time, states I can just do it myself. Pt reports drinking 8-10 vodka nips daily, pretty consistently since 2019. Pt had period of recovery from [id number] after being hospitalized for 6 weeks due to liver issues. Pt states I think it was just fear that kept me sober. Pt reports hx ATS, most recently [facility] in Oct 2022. Pt has utilized [facility] in the past, discussed possibility of returning to [facility]. Pt declines at this time. Discussed other recovery resources, declines referrals. Pt encouraged to reach out to [facility] and/or [facility] if needed. Discussed with provider, plan to dc home.
== END 2023-03-14 09:12 | disposition home or self-care (01) ==
PROVIDERS: Physician Assistant; Emergency Provider Emergency Medicine Emergency Medical Services; PCP Nurse Practitioner Family
DX: F10.129 Alcohol abuse with intoxication, unspecified (principal); M54.2 Cervicalgia; R51.9 Headache, unspecified; R94.31 Abnormal electrocardiogram [ECG] [EKG]; R10.11 Right upper quadrant pain; F17.210 Nicotine dependence, cigarettes, uncomplicated; Y90.7 Blood alcohol level of 200-239 mg/100 ml; Z20.822 Contact with and (suspected) exposure to COVID-19; Z20.828 Contact with and (suspected) exposure to other viral communicable diseases; Z79.899 Other long term (current) drug therapy; Z71.6 Tobacco abuse counseling; Z71.41 Alcohol abuse counseling and surveillance of alcoholic
CPT/HCPCS: 36415; 70450; 72125; 74177; 80053; 80307; 81001; 83690; 83735; 85025; 87635; 93005; 99285; Q9967

== ENCOUNTER 2023-03-20 23:49 | Emergency (ER) | payer OTHER, SELFPAY ==
[2023-03-21 00:11] VITALS: BP 130/94; PULSE 115; O2SAT 96; BMI 21.5
--- NOTE | 2023-03-21 00:15 | ED.PSYCH ---
HPI - Psych General Stated Complaint: SI Time Seen by Provider: 03/20/23 23:54 Source: patient and EMS Mode of arrival: EMS Limitations: no limitations History of Present Illness HPI Narrative: Patient comes to the emergency room complaining of suicidal ideation and alcohol intoxication. Patient states that she admits that she has been drinking alcohol, texted her and that she was considering suicide. Patient and called PD, she was brought to emergency room by EMS. Related Data Home Medications Medication Instructions Recorded Confirmed trazodone 50 mg tablet 50 mg PO BEDTIME 02/13/23 02/13/23 Previous Rx's Medication Instructions Recorded clonidine HCl 0.1 mg tablet 0.1 mg PO BEDTIME PRN anxiety #30 02/25/23 tabs lisinopril 2.5 mg tablet 2.5 mg PO DAILY #30 tabs 03/02/23 alprazolam 1 mg tablet 1 mg PO TID PRN anxiety #86 tabs 03/08/23 sertraline 50 mg tablet 50 mg PO DAILY 90 days #90 tabs 03/18/23 Allergies Allergy/AdvReac Type Severity Reaction Status Date / Time No Known Allergies Allergy Verified 02/10/23 15:52 [No Known Allergies*] Review of Systems Review of Systems: Constitutional : No Weight loss, No Fever, No Chills, No Night Sweats, No Fatigue, No Malaise ENT/Mouth : No Hearing loss, No Ear Pain, No Nasal Congestion, No Sinus Pain, No Hoarseness, No sore throat, No Rhinorrhea, No Swallowing Difficulty Eyes: No Eye Pain, No Swelling, No Redness, No Foreign Body, No Discharge, No Vision Changes Cardiovascular : No Chest Pain, No SOB, No Dyspnea on Exertion, No Orthopnea, No Edema, No Palpitations Respiratory : No Cough, No Sputum, No Wheezing, No Smoke Exposure, No Dyspnea Gastrointestinal : Complaining of severe nausea, No Vomiting, No Diarrhea, No Constipation, No abdominal Pain, No Hematochezia, No Melena Genitourinary : no irregular bleeding, No Dysuria, No Urinary Frequency, No Hematuria, No Urinary Incontinence, No Urgency, No Flank Pain, No Urinary Flow Changes, No Hesitancy Musculoskeletal : No joint pain, No Myalgias, No Joint Swelling Skin : No Skin Lesions, No rash Neuro : No Weakness, No Numbness, No Paresthesias, No Loss of Consciousness, No Dizziness, No Headache Psych : No Anxiety/Panic, No Depression, No SI/HI/AH/VH, admits to heavily drinking alcohol Heme/Lymph: No Bruising, No Bleeding,No Lymphadenopathy Endocrine : No Polyuria, No Polydipsia, No Temperature Intolerance [facility] Past Medical History Medical History Alcohol abuse Alcohol use disorder Alcoholic cirrhosis Alcoholism Anxiety Anxiety Chronic liver disease Depression Easy bruising 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 Mother No problems noted. Family/Other Substance use disorder Maternal Grandmother Ovarian cancer Maternal Aunt Ovarian cancer Social History Social History Housing: House Alcohol intake: current Alcohol intake frequency: 3 or more drinks per day Alcohol type: hard liquor Patient Tobacco Use Status: Current everyday Tobacco user Tobacco use type: Cigarette Cigarettes Per Day: 15 e-Cigarette/Vaping Use: Never Used Second Hand Smoke Exposure: No Substance Use Type: Marijuana service: No Current occupational status: unemployed Cognitive needs: No Hearing needs: No Vision needs: No Physical Exam Const: Other: Appearance: Alert. Oriented X3. No acute distress. Patient is intoxicated but able to have a coherent conversation Eyes: Pupils equal, round and reactive to light. ENT: Pharynx normal. Neck: Normal inspection. Neck supple. No lymph nodes noted. No crepitus CVS: Normal heart rate and rhythm. Pulses normal. Normal S1 and S2 Respiratory: No respiratory distress. Breath sounds normal. No Wheezing. No rales Abdomen: Soft and nontender. No rigidity. No distention. Skin: Skin warm and dry. Normal skin color. Normal skin turgor. Extremities: No lower extremity edema. No Lacerations. No Rash Neuro: Oriented X 3. No motor deficit. No sensory deficit. Moving all extremities. No slurred speech. CN 2 through 12 grossly intact Psych: calm, cooperative, normal affect Medical Decision Making Medical Decision Making MDM Narrative: -patient is on a Section 12 -labs pending -care team consult pending, patient requesting going to detox upon discharge -physician observation started at 00:05 Discharge Plan Discharge Clinical Impression: Alcohol intoxication, Suicidal ideation Patient Disposition: Still a Patient Prescriptions: No Action clonidine HCl 0.1 mg tablet 0.1 mg PO BEDTIME PRN (Reason: anxiety) Qty: 30 0RF lisinopril 2.5 mg tablet 2.5 mg PO DAILY Qty: 30 2RF alprazolam 1 mg tablet 1 mg PO TID PRN (Reason: anxiety) Qty: 86 0RF sertraline 50 mg tablet 50 mg PO DAILY 90 Days Qty: 90 1RF trazodone 50 mg tablet 50 mg PO BEDTIME
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
[2023-03-21] MEDS: LORazepam 1 MG TABLET 2 MG PO (00:26)
[2023-03-21] MEDS: Ondansetron ODT 4 MG TAB.RAPDIS TRANSLINGU (00:27)
[2023-03-21 01:04] LABS: MANUAL DIFF FLAG NO
[2023-03-21 01:05] LABS: Basophils Absolute Auto 0.1 X10*3/uL (0.0-0.2); Basophils Percent Auto 0.7 % (0-2); Eosinophils Absolute Auto 0.2 X10*3/uL (0.0-0.4); Eosinophils Percent Auto 3.3 % (0-4); Hematocrit 37.8 % (37.0-47.0); Imm Gran Abs Auto 0.02 X10*3/uL (0.00-0.03); Imm Gran Pct Auto 0.3 % (0.0-0.4); Lymphocytes Absolute Auto 3.8 X10*3/uL (1.2-4.9); Lymphocytes Percent Auto 53.6 % (20-40); Mean Corpuscular HGB Conc 34.4 g/dl (31.0-35.0); Mean Corpuscular Hemoglobin 32.6 pg (27.0-33.0); Mean Corpuscular Volume 94.7 fL (80.0-98.0); Mean Platelet Volume 10.5 fL (9.4-12.3); Monocytes Absolute Auto 0.6 X10*3/uL (0.1-1.2); Monocytes Percent Auto 8.9 % (2-11); Neutrophils Absolute Auto 2.3 x10*3/uL (2.0-8.3); Neutrophils Percent Auto 33.2 % (45-73); Platelet Count 172 X10*3/uL (160-400); Red Blood Count 3.99 X10*6/uL (4.20-5.50)
[2023-03-21 01:29] LABS: Alanine Aminotransferase 59 U/L (0-31); Albumin Level 4.2 g/dL (3.5-5.0); Alkaline Phosphatase 130 U/L (39-117); Anion Gap 13 (12-20); Aspartate Amino Transferase 106 U/L (5-31); Bilirubin Direct 0.1 mg/dL (0.0-0.5); Bilirubin Total 0.4 mg/dL (0.0-1.0); Blood Urea Nitrogen 8 mg/dL (9-16); Calcium 9.5 mg/dL (8.4-10.2); Carbon Dioxide 28 mmol/L (22-29); Chloride 108 mmol/L (96-108); Creatinine Clr Calc Pharmacy 81.6; Estimated Glomerular Filt Rate > 60; Ethanol 289 mg/dL; Glucose Random 112 mg/dL (60-115); Magnesium 1.9 mg/dL (1.6-2.6); Potassium 3.9 mmol/L (3.3-5.1); Sodium 145 mmol/L (135-145); Total Protein 7.3 g/dL (6.5-8.0)
--- NOTE | 2023-03-21 03:05 | PC.NURSE ---
Pt sleeping at this time. Sitter still in place with 15 minute checks.
[2023-03-21 04:33] VITALS: PULSE 92; RESP 18; TEMP 37; O2SAT 100
--- NOTE | 2023-03-21 07:07 | PC.NURSE ---
This RN assumed care of this pt at 0700. pt sleeping at the time of assuming care. will allow pt to sleep. 1:1 staff at her bedside. will continue to monitor.
[2023-03-21 10:44] VITALS: BP 134/90; PULSE 105; RESP 16; O2SAT 95
[2023-03-21 11:19] LABS: Appearance Urine Turbid; Color Urine Dark Yellow; Glucose Urine UA Negative (Negative); Leukocyte Esterase Urine Negative (Negative); Nitrite Urine Negative (Negative); Specific Gravity - Urine 1.025 (1.005-1.025); UMIC TRIGGER UACC YES; Urine Blood Trace (Negative); Urine Ketones Trace mg/dL (Negative); Urine Protein Trace mg/dL (Neg-Trace)
[2023-03-21 11:21] LABS: Bacteria Urine None Seen (None Seen); Hyaline Casts Urine 0-2 /LPF (0-2); Squamous Epithelial Cell Urine 0-2 /HPF (0-2); WBC Urine 0-5 /HPF (0-5)
[2023-03-21 11:27] LABS: Amphetamine Screen Urine Not Detected (Not Detect); Barbiturates, Urine Not Detected (Not Detect); Benzodiazepines Screen Urine POSITIVE (Not Detect); Cannabinoid Screen Urine POSITIVE (Not Detect); Cocaine Screen Urine Not Detected (Not Detect); Fentanyl, urine Not Detected (Not Detect); Opiate Screen Urine Not Detected (Not Detect); Phencyclidine Screen Urine Not Detected (Not Detect)
--- NOTE | 2023-03-21 13:08 | MHC.CARE ---
Patient evaluated by the CARE Team, she does not require an inpatient psychiatric hospitalization and has declined recovery services. Written assessment to follow. ED provider, Dr. eLal consulted and in agreement with plan to discharge.
== END 2023-03-21 13:24 | disposition home or self-care (01) ==
PROVIDERS: Emergency Provider Emergency Medicine; PCP Internal Medicine
DX: F10.220 Alcohol dependence with intoxication, uncomplicated (principal); Y90.8 Blood alcohol level of 240 mg/100 ml or more; R45.851 Suicidal ideations; I10 Essential (primary) hypertension; E11.9 Type 2 diabetes mellitus without complications; Z79.899 Other long term (current) drug therapy
CPT/HCPCS: 36415; 80048; 80076; 80307; 81001; 83735; 85025; 99285; S9485

== ENCOUNTER 2023-05-10 11:56 | Outpatient (REF) | payer OTHER, MEDICAID, SELFPAY ==
[2023-05-10 12:09] LABS: MANUAL DIFF FLAG NO
[2023-05-10 12:28] LABS: Basophils Absolute Auto 0.1 X10*3/uL (0.0-0.2); Basophils Percent Auto 0.7 % (0-2); Eosinophils Absolute Auto 0.2 X10*3/uL (0.0-0.4); Eosinophils Percent Auto 1.4 % (0-4); Hematocrit 35.4 % (37.0-47.0); Hemoglobin 12.1 g/dl (12.0-16.0); Imm Gran Abs Auto 0.06 X10*3/uL (0.00-0.03); Imm Gran Pct Auto 0.5 % (0.0-0.4); Lymphocytes Absolute Auto 2.6 X10*3/uL (1.2-4.9); Lymphocytes Percent Auto 23.1 % (20-40); Mean Corpuscular HGB Conc 34.2 g/dl (31.0-35.0); Mean Corpuscular Hemoglobin 35.8 pg (27.0-33.0); Mean Corpuscular Volume 104.7 fL (80.0-98.0); Mean Platelet Volume 10.7 fL (9.4-12.3); Monocytes Percent Auto 9.2 % (2-11); Neutrophils Absolute Auto 7.2 x10*3/uL (2.0-8.3); Neutrophils Percent Auto 65.1 % (45-73); Platelet Count 175 X10*3/uL (160-400); Red Blood Count 3.38 X10*6/uL (4.20-5.50); Red Cell Distribution Width 16.4 % (11.0-16.0)
[2023-05-10 13:06] LABS: Alanine Aminotransferase 139 U/L (0-31); Alkaline Phosphatase 186 U/L (39-117); Anion Gap 15 (12-20); Aspartate Amino Transferase 245 U/L (5-31); Bilirubin Total 0.4 mg/dL (0.0-1.0); Blood Urea Nitrogen 12 mg/dL (9-16); Calcium 8.9 mg/dL (8.4-10.2); Carbon Dioxide 26 mmol/L (22-29); Chloride 105 mmol/L (96-108); Estimated Glomerular Filt Rate > 60; Glucose Random 162 mg/dL (60-115); Potassium 4.2 mmol/L (3.3-5.1); Sodium 142 mmol/L (135-145); Total Protein 7.6 g/dL (6.5-8.0)
== END 2023-05-10 11:57 | disposition home or self-care (01) ==
LOC: HO.LAB 11:56
PROVIDERS: PCP Internal Medicine; Visit Provider Internal Medicine Gastroenterology
DX: K75.81 Nonalcoholic steatohepatitis (NASH) (principal); F10.10 Alcohol abuse, uncomplicated; K70.30 Alcoholic cirrhosis of liver without ascites
CPT/HCPCS: 36415; 80053; 85025; 85610

== ENCOUNTER 2023-05-12 08:23 | Emergency (ER) | payer MEDICARE, MEDICAID, SELFPAY ==
--- NOTE | ~2023-05-12 | CT_ITS ---
EXAMINATION: CT ABDOMEN AND PELVIS WITH CONTRAST CLINICAL INFORMATION: Abdominal pain. COMPARISON: CT scan the abdomen and pelvis dated 03/14/2023. TECHNIQUE: Multidetector volumetric images were obtained from the superior aspect of the liver through the pubic symphysis following administration 85 mL of Omnipaque 350 intravenous contrast. Sagittal and coronal reformatted images were obtained on the technologist's workstation. Oral contrast: No This CT examination was performed using dose optimization techniques as appropriate, variously including the following: *Automated exposure control *Adjustment of mA and/or kV according to patient size (this includes techniques or standardized protocols for targeted exams where dose is matched to indication/reason for exam; i.e. extremities or head) *Use of iterative reconstruction technique DLP: 474 mGy-cm FINDINGS: LUNG BASES: The visualized lung bases are unremarkable. LIVER, GALLBLADDER, AND BILIARY TREE: Diffuse decreased attenuation and surface nodularity without focal abnormality. Asymmetric right hepatic lobe enlargement. Moderate gallbladder distention without abnormality. No significant biliary ductal dilatation. PANCREAS: Unremarkable. SPLEEN: Unremarkable. ADRENAL GLANDS: Unremarkable. KIDNEYS AND URETERS: The kidneys are normal in size, shape, and attenuation. No hydronephrosis, hydroureter, or calculi seen. No perinephric stranding. BLADDER: Unremarkable. GASTROINTESTINAL TRACT: The stomach is unremarkable. Small second segment duodenal diverticulum medially without abnormality. The small bowel is unremarkable. The colon is decompressed with mild diffuse mural thickening. Extending to the rectum minimal adjacent infiltrative changes are seen most pronounced distally extending to the rectum. No focal fluid collection. ABDOMINAL WALL: No significant hernia is appreciated. LYMPH NODES: No lymphadenopathy. VASCULAR: Unremarkable. PELVIC VISCERA: Unremarkable. OSSEOUS STRUCTURES: L5-S1 moderate degenerative disc disease. No acute/suspicious abnormality. CT/CT abdomen pelvis w IV con IMPRESSION: 1. Generalized decompressed large bowel with interval increase in mural thickening and minimal pericolonic infiltrative changes most pronounced distally extending to the rectum. A component of the mural thickening is likely secondary to underdistention however, findings suggest a mild infectious/inflammatory colitis. 2. Hepatic steatosis and cirrhosis without significant change.
--- NOTE | ~2023-05-12 | XR_ITS ---
EXAMINATION: XR CHEST CLINICAL INFORMATION: Cough COMPARISON: 04/26/2022 TECHNIQUE: 2 views of the chest were obtained. FINDINGS: No significant abnormality is noted involving the heart, lungs, mediastinum, bony thorax or soft tissues. XR/XR chest 2V IMPRESSION: Unremarkable examination.
--- NOTE | ~2023-05-12 | CT_ITS ---
EXAMINATION: CT HEAD WITHOUT CONTRAST CLINICAL INFORMATION: Altered mental status. COMPARISON: None available. TECHNIQUE: Contiguous axial imaging was performed from the skull base to vertex without intravenous administration of contrast. Coronal and sagittal reformatted images were obtained. This CT examination was performed using dose optimization techniques as appropriate, variously including the following: *Automated exposure control *Adjustment of mA and/or kV according to patient size (this includes techniques or standardized protocols for targeted exams where dose is matched to indication/reason for exam; i.e. extremities or head) *Use of iterative reconstruction technique DLP: 589 mGy-cm FINDINGS: The cortical sulci are normal. The lateral ventricles are symmetrical. The third and fourth ventricles are in their normal midline position. The basilar and prepontine cisterns are unremarkable. There is no acute intra or extracerebral abnormality. There is no mass effect or midline shift. Sections through the bony calvarium are unremarkable. The paranasal sinuses show mild to moderate mucosal thickening most pronounced in the right ethmoid sinuses. The bony orbits and orbital contents are unremarkable. CT/CT head/brain wo IV con IMPRESSION: No acute intracranial pathology.
[2023-05-12 08:40] VITALS: BP 112/78; PULSE 95; RESP 20; TEMP 36.8; O2SAT 96; BMI 21.5
[2023-05-12 09:16] LABS: COVID-19 Test Negative (Negative); IDNOW Serial# 6674DD1D
[2023-05-12 09:26] LABS: IDNOW Serial# 08D9AD1C; Strep A Nucleic Acid Negative (Negative)
[2023-05-12 09:41] VITALS: PULSE 84; O2SAT 93
--- NOTE | 2023-05-12 09:58 | PC.NURSE ---
pt drowsy, arousable to touch, respirations even and unlabored.skin pink and dry. pupils pinpoint. abdomen soft with hypoactive bowel sounds in all 4 quadrants. pt reports being tired d/t not sleeping well. significant other reports pt having one nip this morning prior to arrival, and stated pt had taken pills pt is denying taking extra of pills, pt is just taking prescribed meds with unknown names normal sinus on tele. sats vary 91-94 on RA.
--- NOTE | 2023-05-12 10:13 | ECG_ITS ---
Test Reason : CHEST PAIN Blood Pressure : / mmHG Vent. Rate : 092 BPM Atrial Rate : 092 BPM P-R Int : 196 ms QRS Dur : 068 ms QT Int : 348 ms P-R-T Axes : 063 010 029 degrees QTc Int : 430 ms Normal sinus rhythm Normal ECG When compared with ECG of 13-MAR-2023 23:14, No significant change was found Referred By: Karina Xiao Electronically Signed By:SIMONE PINTO MD
[2023-05-12 10:24] VITALS: BP 103/69; PULSE 87; RESP 16; O2SAT 93
--- NOTE | 2023-05-12 10:24 | ED_ITS ---
HPI - General Adult General Chief complaint: General Medical Stated complaint: swollen glands cough ear pain Time Seen by Provider: 05/12/23 09:02 History of Present Illness HPI narrative: Patient is 47 years old history of alcohol dependency. Presents today with having pain to her throat. Also have a history of being on Pepto-Bismol. Patient complaining of having black stool. Her family complaining of generalized malaise weakness. Patient not quite right. No fever no chills. No diaphoresis. Patient denies any difficulty swallowing. In fact she was able to drink some alcohol prior to arrival. She denies any recreational drug use. She does have a history of being on Xanax. Patient claims she took a Xanax that is why she is so sleepy. He denies any suicidal homicidal ideation. Has no abdominal pain. Positive generalized malaise. Related Data Home Medications Medication Instructions Recorded Confirmed trazodone 50 mg tablet 50 mg PO BEDTIME 02/13/23 02/13/23 Previous Rx's Medication Instructions Recorded lisinopril 2.5 mg tablet 2.5 mg PO DAILY #30 tabs 03/02/23 sertraline 50 mg tablet 50 mg PO DAILY 90 days #90 tabs 03/18/23 alprazolam 1 mg tablet 1 mg PO TID PRN anxiety #86 tabs 04/29/23 clonidine HCl 0.1 mg tablet 0.1 mg PO BEDTIME PRN anxiety #30 04/29/23 tabs pantoprazole 40 mg tablet,delayed 40 mg PO DAILY #90 tabs 05/09/23 release Allergies Allergy/AdvReac Type Severity Reaction Status Date / Time No Known Allergies Allergy Verified 02/10/23 15:52 [No Known Allergies*] Review of Systems Review of Systems: Very lethargic Yes all other systems are reviewed and are negative [facility] Past Medical History Attestation statement: The following information was validated with the patient. 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 Mother No problems noted. Family/Other Substance use disorder Maternal Grandmother Ovarian cancer Maternal Aunt Ovarian cancer Social History Social History Housing: House Alcohol intake: current Alcohol intake frequency: 3 or more drinks per day Alcohol type: hard liquor Patient Tobacco Use Status: Current everyday Tobacco user Tobacco use type: Cigarette Cigarettes Per Day: 15 Smoked in Last 30 Days: Yes e-Cigarette/Vaping Use: Never Used Second Hand Smoke Exposure: No Use of substances other than those prescribed or required for medical reasons: No Substance Use Type: Marijuana Advance Directives: No Advance Directives Information Provided: Yes service: No Current occupational status: unemployed Cognitive needs: No Hearing needs: No Vision needs: No Physical Exam ED Vital Signs: Vital Signs - 24 hr 05/12/23 08:40 05/12/23 09:41 05/12/23 10:24 Temperature 98.2 F Pulse Rate 95 84 87 Respiratory Rate 20 16 Blood Pressure 112/78 103/69 Pulse Oximetry 96 93 93 Oxygen Delivery Method Room Air Room Air Room Air 05/12/23 11:56 Temperature 98.1 F Pulse Rate 91 Respiratory Rate 23 H Blood Pressure 124/83 Pulse Oximetry 93 Oxygen Delivery Method Room Air BMI result Body Mass Index 21.5 Appearance: Alert. Oriented X3. No acute distress. Eyes: Pupils equal, round and reactive to light. ENT: Pharynx normal. Neck: Normal inspection. Neck supple. No lymph nodes noted. No crepitus CVS: Normal heart rate and rhythm. Pulses normal. Normal S1 and S2 Respiratory: No respiratory distress. Breath sounds normal. No Wheezing. No rales Abdomen: Soft and nontender. No rigidity. No distention. good BS x4 Rectal exam yellow stool noted done withagne the nurse present. Skin: Skin warm and dry. Normal skin color. Normal skin turgor. Extremities: No lower extremity edema. Neurovascular intact to all extremities. No Lacerations. No Rash Neuro: Oriented X 3. No motor deficit. No sensory deficit. Moving all extermities. No slurred speech Medications Administered Discontinued Medications Generic Name Dose Route Start Last Admin Trade Name Freq PRN Reason Stop Dose Admin Sodium Chloride 1,000 mls @ 999 mls/hr 05/12/23 10:15 07/13/23 11:38 Ns IV 05/12/23 11:15 Infused .Q1H1M KAITY Infusion Sodium Chloride 1,000 mls @ 999 mls/hr 05/12/23 12:15 05/12/23 13:43 Ns IV 05/12/23 13:15 999 mls/hr .Q1H1M KAITY Administration Iohexol 100 ml 05/12/23 13:56 05/12/23 13:56 Iohexol 350 Mg/Ml 100 Ml Infus..Btl IV 05/12/23 13:57 85 ml ONCE ONE Administration Ondansetron HCl 4 mg 05/12/23 10:13 05/12/23 10:58 Ondansetron Hcl 4 Mg/2 Ml Vial IVPUSH 05/12/23 10:14 4 mg ONCE ONE Administration Medical Decision Making Medical Decision Making [facility] Narrative: Patient at 1st was very lethargic. Weak. Needs stimuli to stay awake. CT scan of the head was grossly negative for any acute evidence of bleeding. Patient had nonspecific abdominal pain. CT scan of the abdomen pelvis did not show any acute evidence of obstruction abscess perforation. It did show a question mild colitis. Patient's urine was negative for infection. Alcohol level was 123. Patient is positive for benzo. Claims she is taking benzos on a regular basis as prescribed. No suicidal ideation. Patient's COVID test was negative no evidence for COVID. Patient's strep test was negative patient claims she had some sore throat. Her posterior pharynx is normal she is breathing comfortably there is no signs of airway distress. No evidence for retropharyngeal abscess. Will discharge patient home. After monitoring for few hours waiting for the CT scan patient is now awake alert oriented tolerated fluids well. In no distress. Explained to patient the need to closely follow-up with her primary physician. Patient stated she had black stool. Question this is secondary from Pepto- Bismol use. She admitted to using Pepto-Bismol. Her hemoglobin is stable her stool however was trace positive by Hemoccult. Will need follow-up on an outpatient basis. Differential Diagnosis Hypoglycemia, polysubstance abuse, intracranial bleed, acute abdominal process, GI bleed Lab Data [facility] Lab Attestation statement: I reviewed the patient's lab results. 05/12/23 10:44 05/12/23 10:44 Labs: Lab Results 05/12/23 05/12/23 05/12/23 Range/Units 08:52 08:52 10:26 WBC (4.8-10.8) X10*3/uL RBC (4.20-5.50) X10*6/uL Hgb (12.0-16.0) g/dl Hct (37.0-47.0) % MCV (80.0-98.0) fL MCH (27.0-33.0) pg MCHC (31.0-35.0) g/dl RDW (11.0-16.0) % Plt Count (160-400) X10*3/uL MPV (9.4-12.3) fL Immature Gran % (Auto) (0.0-0.4) % Neut % (Auto) (45-73) % Lymph % (Auto) (20-40) % [place] % (Auto) (2-11) % Eos % (Auto) (0-4) % Baso % (Auto) (0-2) % Lymph # (Auto) (1.2-4.9) X10*3/uL [place] # (Auto) (0.1-1.2) X10*3/uL Eos # (Auto) (0.0-0.4) X10*3/uL Baso # (Auto) (0.0-0.2) X10*3/uL Abs Immat Gran (auto) (0.00-0.03) X10*3/uL Absolute Neuts (auto) (2.0-8.3) x10*3/uL Absolute Nucleated RBC (0.0-0.012) X10*3/uL Nucleated RBC % (auto) (0.0-0.2) /100WBC PT (10.0-13.1) SEC INR (0.9-1.1) Sodium (135-145) mmol/L Potassium (3.3-5.1) mmol/L Chloride (96-108) mmol/L Carbon Dioxide (22-29) mmol/L Anion Gap (12-20) BUN (9-16) mg/dL Creatinine (0.5-1.4) mg/dL Estim Creat Clear Calc Estimated GFR Random Glucose (60-115) mg/dL Calcium (8.4-10.2) mg/dL Total Bilirubin (0.0-1.0) mg/dL Direct Bilirubin (0.0-0.5) mg/dL AST (5-31) U/L ALT (0-31) U/L Alkaline Phosphatase (39-117) U/L Ammonia (13-55) umol/L Troponin I High Sens (<3.5-17.0) ng/L Total Protein (6.5-8.0) g/dL Albumin (3.5-5.0) g/dL Lipase (8-78) U/L Beta HCG, Quant mIU/mL Urine Color Urine Appearance Urine pH (5.0-9.0) Ur Specific [place] (1.005-1.025) Urine Protein (Neg-Trace) mg/dL Urine Glucose (UA) (Negative) mg/dL Urine Ketones (Negative) mg/dL Urine Blood (Negative) Urine Nitrite (Negative) Ur Leukocyte Esterase (Negative) Urine RBC (0-2) /HPF Urine WBC (0-5) /HPF Ur Squamous Epith Cells (0-2) /HPF Urine Bacteria (None Seen) Hyaline Casts (0-2) /LPF Stool Occult Blood POSITIVE (NEGATIVE) Salicylates (15-30) mg/dL Urine Opiates Screen (Not Detect) Urine Fentanyl Screen (Not Detect) Acetaminophen (<30) mcg/mL Ur Barbiturates Screen (Not Detect) Ur Phencyclidine Scrn (Not Detect) Ur Amphetamines Screen (Not Detect) U Benzodiazepines Scrn (Not Detect) Urine Cocaine Screen (Not Detect) U Marijuana (THC) Screen (Not Detect) Ethyl Alcohol mg/dL COVID-19 (ANTONIO) Negative (Negative) COVID-19 Clin Com See Note S. pyogenes GrpA DAYANARA Negative (Negative) Blood Type Antibody Screen 05/12/23 05/12/23 05/12/23 Range/Units 10:44 10:44 10:44 WBC 8.2 (4.8-10.8) X10*3/uL RBC 3.19 L (4.20-5.50) X10*6/uL Hgb 11.1 L (12.0-16.0) g/dl Hct 33.0 L (37.0-47.0) % MCV 103.4 H (80.0-98.0) fL MCH 34.8 H (27.0-33.0) pg MCHC 33.6 (31.0-35.0) g/dl RDW 16.5 H (11.0-16.0) % Plt Count 164 (160-400) X10*3/uL MPV 10.2 (9.4-12.3) fL Immature Gran % (Auto) 0.2 (0.0-0.4) % Neut % (Auto) 62.4 (45-73) % Lymph % (Auto) 24.2 (20-40) % [place] % (Auto) 11.5 H (2-11) % Eos % (Auto) 1.1 (0-4) % Baso % (Auto) 0.6 (0-2) % Lymph # (Auto) 2.0 (1.2-4.9) X10*3/uL [place] # (Auto) 1.0 (0.1-1.2) X10*3/uL Eos # (Auto) 0.1 (0.0-0.4) X10*3/uL Baso # (Auto) 0.1 (0.0-0.2) X10*3/uL Abs Immat Gran (auto) 0.02 (0.00-0.03) X10*3/uL Absolute Neuts (auto) 5.1 (2.0-8.3) x10*3/uL Absolute Nucleated RBC 0.000 (0.0-0.012) X10*3/uL Nucleated RBC % (auto) 0.0 (0.0-0.2) /100WBC PT (10.0-13.1) SEC INR (0.9-1.1) Sodium 141 (135-145) mmol/L Potassium 3.3 D (3.3-5.1) mmol/L Chloride 107 (96-108) mmol/L Carbon Dioxide 25 (22-29) mmol/L Anion Gap 12 (12-20) BUN 11 (9-16) mg/dL Creatinine 0.68 (0.5-1.4) mg/dL Estim Creat Clear Calc 86.4 Estimated GFR > 60 Random Glucose 102 (60-115) mg/dL Calcium 8.6 (8.4-10.2) mg/dL Total Bilirubin 0.5 (0.0-1.0) mg/dL Direct Bilirubin 0.1 (0.0-0.5) mg/dL AST 139 H (5-31) U/L ALT 94 H (0-31) U/L Alkaline Phosphatase 171 H (39-117) U/L Ammonia (13-55) umol/L Troponin I High Sens 4.0 (<3.5-17.0) ng/L Total Protein 6.8 (6.5-8.0) g/dL Albumin 3.7 (3.5-5.0) g/dL Lipase 42 (8-78) U/L Beta HCG, Quant mIU/mL Urine Color Urine Appearance Urine pH (5.0-9.0) Ur Specific [place] (1.005-1.025) Urine Protein (Neg-Trace) mg/dL Urine Glucose (UA) (Negative) mg/dL Urine Ketones (Negative) mg/dL Urine Blood (Negative) Urine Nitrite (Negative) Ur Leukocyte Esterase (Negative) Urine RBC (0-2) /HPF Urine WBC (0-5) /HPF Ur Squamous Epith Cells (0-2) /HPF Urine Bacteria (None Seen) Hyaline Casts (0-2) /LPF Stool Occult Blood (NEGATIVE) Salicylates (15-30) mg/dL Urine Opiates Screen (Not Detect) Urine Fentanyl Screen (Not Detect) Acetaminophen (<30) mcg/mL Ur Barbiturates Screen (Not Detect) Ur Phencyclidine Scrn (Not Detect) Ur Amphetamines Screen (Not Detect) U Benzodiazepines Scrn (Not Detect) Urine Cocaine Screen (Not Detect) U Marijuana (THC) Screen (Not Detect) Ethyl Alcohol mg/dL COVID-19 (ANTONIO) (Negative) COVID-19 Clin Com S. pyogenes GrpA DAYANARA (Negative) Blood Type Antibody Screen 05/12/23 05/12/23 05/12/23 Range/Units 10:44 10:44 10:44 WBC (4.8-10.8) X10*3/uL RBC (4.20-5.50) X10*6/uL Hgb (12.0-16.0) g/dl Hct (37.0-47.0) % MCV (80.0-98.0) fL MCH (27.0-33.0) pg MCHC (31.0-35.0) g/dl RDW (11.0-16.0) % Plt Count (160-400) X10*3/uL MPV (9.4-12.3) fL Immature Gran % (Auto) (0.0-0.4) % Neut % (Auto) (45-73) % Lymph % (Auto) (20-40) % [place] % (Auto) (2-11) % Eos % (Auto) (0-4) % Baso % (Auto) (0-2) % Lymph # (Auto) (1.2-4.9) X10*3/uL [place] # (Auto) (0.1-1.2) X10*3/uL Eos # (Auto) (0.0-0.4) X10*3/uL Baso # (Auto) (0.0-0.2) X10*3/uL Abs Immat Gran (auto) (0.00-0.03) X10*3/uL Absolute Neuts (auto) (2.0-8.3) x10*3/uL Absolute Nucleated RBC (0.0-0.012) X10*3/uL Nucleated RBC % (auto) (0.0-0.2) /100WBC PT 11.2 (10.0-13.1) SEC INR 1.0 (0.9-1.1) Sodium (135-145) mmol/L Potassium (3.3-5.1) mmol/L Chloride (96-108) mmol/L Carbon Dioxide (22-29) mmol/L Anion Gap (12-20) BUN (9-16) mg/dL Creatinine (0.5-1.4) mg/dL Estim Creat Clear Calc Estimated GFR Random Glucose (60-115) mg/dL Calcium (8.4-10.2) mg/dL Total Bilirubin (0.0-1.0) mg/dL Direct Bilirubin (0.0-0.5) mg/dL AST (5-31) U/L ALT (0-31) U/L Alkaline Phosphatase (39-117) U/L Ammonia 39 (13-55) umol/L Troponin I High Sens (<3.5-17.0) ng/L Total Protein (6.5-8.0) g/dL Albumin (3.5-5.0) g/dL Lipase (8-78) U/L Beta HCG, Quant < 2 mIU/mL Urine Color Urine Appearance Urine pH (5.0-9.0) Ur Specific [place] (1.005-1.025) Urine Protein (Neg-Trace) mg/dL Urine Glucose (UA) (Negative) mg/dL Urine Ketones (Negative) mg/dL Urine Blood (Negative) Urine Nitrite (Negative) Ur Leukocyte Esterase (Negative) Urine RBC (0-2) /HPF Urine WBC (0-5) /HPF Ur Squamous Epith Cells (0-2) /HPF Urine Bacteria (None Seen) Hyaline Casts (0-2) /LPF Stool Occult Blood (NEGATIVE) Salicylates < 5.0 L (15-30) mg/dL Urine Opiates Screen (Not Detect) Urine Fentanyl Screen (Not Detect) Acetaminophen < 17 (<30) mcg/mL Ur Barbiturates Screen (Not Detect) Ur Phencyclidine Scrn (Not Detect) Ur Amphetamines Screen (Not Detect) U Benzodiazepines Scrn (Not Detect) Urine Cocaine Screen (Not Detect) U Marijuana (THC) Screen (Not Detect) Ethyl Alcohol mg/dL COVID-19 (ANTONIO) (Negative) COVID-19 Clin Com S. pyogenes GrpA DAYANARA (Negative) Blood Type Antibody Screen 05/12/23 05/12/23 05/12/23 Range/Units 10:44 10:44 12:22 WBC (4.8-10.8) X10*3/uL RBC (4.20-5.50) X10*6/uL Hgb (12.0-16.0) g/dl Hct (37.0-47.0) % MCV (80.0-98.0) fL MCH (27.0-33.0) pg MCHC (31.0-35.0) g/dl RDW (11.0-16.0) % Plt Count (160-400) X10*3/uL MPV (9.4-12.3) fL Immature Gran % (Auto) (0.0-0.4) % Neut % (Auto) (45-73) % Lymph % (Auto) (20-40) % [place] % (Auto) (2-11) % Eos % (Auto) (0-4) % Baso % (Auto) (0-2) % Lymph # (Auto) (1.2-4.9) X10*3/uL [place] # (Auto) (0.1-1.2) X10*3/uL Eos # (Auto) (0.0-0.4) X10*3/uL Baso # (Auto) (0.0-0.2) X10*3/uL Abs Immat Gran (auto) (0.00-0.03) X10*3/uL Absolute Neuts (auto) (2.0-8.3) x10*3/uL Absolute Nucleated RBC (0.0-0.012) X10*3/uL Nucleated RBC % (auto) (0.0-0.2) /100WBC PT (10.0-13.1) SEC INR (0.9-1.1) Sodium (135-145) mmol/L Potassium (3.3-5.1) mmol/L Chloride (96-108) mmol/L Carbon Dioxide (22-29) mmol/L Anion Gap (12-20) BUN (9-16) mg/dL Creatinine (0.5-1.4) mg/dL Estim Creat Clear Calc Estimated GFR Random Glucose (60-115) mg/dL Calcium (8.4-10.2) mg/dL Total Bilirubin (0.0-1.0) mg/dL Direct Bilirubin (0.0-0.5) mg/dL AST (5-31) U/L ALT (0-31) U/L Alkaline Phosphatase (39-117) U/L Ammonia (13-55) umol/L Troponin I High Sens (<3.5-17.0) ng/L Total Protein (6.5-8.0) g/dL Albumin (3.5-5.0) g/dL Lipase (8-78) U/L Beta HCG, Quant mIU/mL Urine Color Urine Appearance Urine pH (5.0-9.0) Ur Specific [place] (1.005-1.025) Urine Protein (Neg-Trace) mg/dL Urine Glucose (UA) (Negative) mg/dL Urine Ketones (Negative) mg/dL Urine Blood (Negative) Urine Nitrite (Negative) Ur Leukocyte Esterase (Negative) Urine RBC (0-2) /HPF Urine WBC (0-5) /HPF Ur Squamous Epith Cells (0-2) /HPF Urine Bacteria (None Seen) Hyaline Casts (0-2) /LPF Stool Occult Blood (NEGATIVE) Salicylates (15-30) mg/dL Urine Opiates Screen Not Detected (Not Detect) Urine Fentanyl Screen Not Detected (Not Detect) Acetaminophen (<30) mcg/mL Ur Barbiturates Screen Not Detected (Not Detect) Ur Phencyclidine Scrn Not Detected (Not Detect) Ur Amphetamines Screen Not Detected (Not Detect) U Benzodiazepines Scrn POSITIVE H (Not Detect) Urine Cocaine Screen Not Detected (Not Detect) U Marijuana (THC) Screen Not Detected (Not Detect) Ethyl Alcohol 123 mg/dL COVID-19 (ANTONIO) (Negative) COVID-19 Clin Com S. pyogenes GrpA DAYANARA (Negative) Blood Type O Positive Antibody Screen NEGATIVE 05/12/23 Range/Units 12:22 WBC (4.8-10.8) X10*3/uL RBC (4.20-5.50) X10*6/uL Hgb (12.0-16.0) g/dl Hct (37.0-47.0) % MCV (80.0-98.0) fL MCH (27.0-33.0) pg MCHC (31.0-35.0) g/dl RDW (11.0-16.0) % Plt Count (160-400) X10*3/uL MPV (9.4-12.3) fL Immature Gran % (Auto) (0.0-0.4) % Neut % (Auto) (45-73) % Lymph % (Auto) (20-40) % [place] % (Auto) (2-11) % Eos % (Auto) (0-4) % Baso % (Auto) (0-2) % Lymph # (Auto) (1.2-4.9) X10*3/uL [place] # (Auto) (0.1-1.2) X10*3/uL Eos # (Auto) (0.0-0.4) X10*3/uL Baso # (Auto) (0.0-0.2) X10*3/uL Abs Immat Gran (auto) (0.00-0.03) X10*3/uL Absolute Neuts (auto) (2.0-8.3) x10*3/uL Absolute Nucleated RBC (0.0-0.012) X10*3/uL Nucleated RBC % (auto) (0.0-0.2) /100WBC PT (10.0-13.1) SEC INR (0.9-1.1) Sodium (135-145) mmol/L Potassium (3.3-5.1) mmol/L Chloride (96-108) mmol/L Carbon Dioxide (22-29) mmol/L Anion Gap (12-20) BUN (9-16) mg/dL Creatinine (0.5-1.4) mg/dL Estim Creat Clear Calc Estimated GFR Random Glucose (60-115) mg/dL Calcium (8.4-10.2) mg/dL Total Bilirubin (0.0-1.0) mg/dL Direct Bilirubin (0.0-0.5) mg/dL AST (5-31) U/L ALT (0-31) U/L Alkaline Phosphatase (39-117) U/L Ammonia (13-55) umol/L Troponin I High Sens (<3.5-17.0) ng/L Total Protein (6.5-8.0) g/dL Albumin (3.5-5.0) g/dL Lipase (8-78) U/L Beta HCG, Quant mIU/mL Urine Color Yellow Urine Appearance Clear Urine pH 6.0 (5.0-9.0) Ur Specific [place] 1.010 (1.005-1.025) Urine Protein Negative (Neg-Trace) mg/dL Urine Glucose (UA) Negative (Negative) mg/dL Urine Ketones Negative (Negative) mg/dL Urine Blood Trace H (Negative) Urine Nitrite Negative (Negative) Ur Leukocyte Esterase Negative (Negative) Urine RBC 0-2 (0-2) /HPF Urine WBC 0-5 (0-5) /HPF Ur Squamous Epith Cells 0-2 (0-2) /HPF Urine Bacteria None Seen (None Seen) Hyaline Casts 0-2 (0-2) /LPF Stool Occult Blood (NEGATIVE) Salicylates (15-30) mg/dL Urine Opiates Screen (Not Detect) Urine Fentanyl Screen (Not Detect) Acetaminophen (<30) mcg/mL Ur Barbiturates Screen (Not Detect) Ur Phencyclidine Scrn (Not Detect) Ur Amphetamines Screen (Not Detect) U Benzodiazepines Scrn (Not Detect) Urine Cocaine Screen (Not Detect) U Marijuana (THC) Screen (Not Detect) Ethyl Alcohol mg/dL COVID-19 (ANTONIO) (Negative) COVID-19 Clin Com S. pyogenes GrpA DAYANARA (Negative) Blood Type Antibody Screen Independent Interpretation I performed an independent interpretation of an: EKG, Plain X-Ray and CT Scan Interpretation: My interpretation of patient's EKG showed a sinus pattern heart rate is 90 KS QRS QT within normal limits is no acute ST segment elevation noted. My interpretation the patient's CT scan of the head was grossly negative for any acute evidence of bleeding. My interpretation patient's chest x-ray grossly negative for any acute evidence of pneumonia Radiology Impression Discussion of test interpretation with radiology: I have reviewed the radiologist's reading. Independent Historian Clinical information obtained from an independent historian. History obtained from or confirmed by: Spouse Chronic Conditions Alcohol abuse Social Determinants Patient?s care significantly limited by Social Determinants of Health including: Alcoholism and drug addiction in family Discharge Plan Discharge Clinical Impression: Alcohol use disorder, Colitis Patient Disposition: Home, Self-Care Instructions: Colitis (ED), Abuse of Alcohol (ED), Pharyngitis (ED) Prescriptions: No Action lisinopril 2.5 mg tablet 2.5 mg PO DAILY Qty: 30 2RF sertraline 50 mg tablet 50 mg PO DAILY 90 Days Qty: 90 1RF alprazolam 1 mg tablet 1 mg PO TID PRN (Reason: anxiety) Qty: 86 0RF clonidine HCl 0.1 mg tablet 0.1 mg PO BEDTIME PRN (Reason: anxiety) Qty: 30 5RF pantoprazole 40 mg tablet,delayed release (DR/EC) 40 mg PO DAILY Qty: 90 2RF trazodone 50 mg tablet 50 mg PO BEDTIME
[2023-05-12 10:36] LABS: OBS Int Ctl Valid YES; OBS1 POSITIVE (NEGATIVE)
[2023-05-12 10:55] LABS: MANUAL DIFF FLAG NO
[2023-05-12] MEDS: 0.9 % Sodium Chloride 1,000 ML 999 ML IV ×2 (10:58→13:43)
[2023-05-12] MEDS: ondansetron HCL 4 MG/2 ML VIAL IVPUSH (10:58)
[2023-05-12 11:01] LABS: Basophils Absolute Auto 0.1 X10*3/uL (0.0-0.2); Basophils Percent Auto 0.6 % (0-2); Eosinophils Absolute Auto 0.1 X10*3/uL (0.0-0.4); Eosinophils Percent Auto 1.1 % (0-4); Hemoglobin 11.1 g/dl (12.0-16.0); Imm Gran Abs Auto 0.02 X10*3/uL (0.00-0.03); Imm Gran Pct Auto 0.2 % (0.0-0.4); Lymphocytes Percent Auto 24.2 % (20-40); Mean Corpuscular HGB Conc 33.6 g/dl (31.0-35.0); Mean Corpuscular Hemoglobin 34.8 pg (27.0-33.0); Mean Corpuscular Volume 103.4 fL (80.0-98.0); Mean Platelet Volume 10.2 fL (9.4-12.3); Monocytes Percent Auto 11.5 % (2-11); Neutrophils Absolute Auto 5.1 x10*3/uL (2.0-8.3); Neutrophils Percent Auto 62.4 % (45-73); Platelet Count 164 X10*3/uL (160-400); Red Blood Count 3.19 X10*6/uL (4.20-5.50); Red Cell Distribution Width 16.5 % (11.0-16.0); White Blood Count 8.2 X10*3/uL (4.8-10.8)
[2023-05-12 11:06] LABS: Prothrombin Time 11.2 SEC (10.0-13.1)
[2023-05-12 11:21] LABS: Ethanol 123 mg/dL
[2023-05-12 11:22] LABS: Ammonia 39 umol/L (13-55)
[2023-05-12 11:24] LABS: Alanine Aminotransferase 94 U/L (0-31); Albumin Level 3.7 g/dL (3.5-5.0); Alkaline Phosphatase 171 U/L (39-117); Anion Gap 12 (12-20); Aspartate Amino Transferase 139 U/L (5-31); Bilirubin Direct 0.1 mg/dL (0.0-0.5); Bilirubin Total 0.5 mg/dL (0.0-1.0); Blood Urea Nitrogen 11 mg/dL (9-16); Calcium 8.6 mg/dL (8.4-10.2); Carbon Dioxide 25 mmol/L (22-29); Chloride 107 mmol/L (96-108); Creatinine Clr Calc Pharmacy 86.4; Estimated Glomerular Filt Rate > 60; Glucose Random 102 mg/dL (60-115); Lipase 42 U/L (8-78); Potassium 3.3 mmol/L (3.3-5.1); Sodium 141 mmol/L (135-145); Total Protein 6.8 g/dL (6.5-8.0)
[2023-05-12 11:32] LABS: HCG Quantitative < 2 mIU/mL; Salicylate < 5.0 mg/dL (15-30)
[2023-05-12 11:53] LABS: Acetaminophen LAB < 17 mcg/mL (<30)
[2023-05-12 11:56] VITALS: BP 124/83; PULSE 91; RESP 23; TEMP 36.7; O2SAT 93
[2023-05-12 12:30] LABS: Appearance Urine Clear; Color Urine Yellow; Glucose Urine UA Negative (Negative); Leukocyte Esterase Urine Negative (Negative); Nitrite Urine Negative (Negative); UMIC TRIGGER UACC YES; Urine Blood Trace (Negative); Urine Ketones Negative (Negative); Urine Protein Negative (Neg-Trace)
[2023-05-12 12:33] LABS: Bacteria Urine None Seen (None Seen); Hyaline Casts Urine 0-2 /LPF (0-2); RBC Urine 0-2 /HPF (0-2); Squamous Epithelial Cell Urine 0-2 /HPF (0-2); WBC Urine 0-5 /HPF (0-5)
[2023-05-12 12:38] LABS: Amphetamine Screen Urine Not Detected (Not Detect); Barbiturates, Urine Not Detected (Not Detect); Benzodiazepines Screen Urine POSITIVE (Not Detect); Cannabinoid Screen Urine Not Detected (Not Detect); Cocaine Screen Urine Not Detected (Not Detect); Fentanyl, urine Not Detected (Not Detect); Opiate Screen Urine Not Detected (Not Detect); Phencyclidine Screen Urine Not Detected (Not Detect)
[2023-05-12] MEDS: iohexoL 350 MG/ML 100 ML INFUS..BTL IV (13:56)
== END 2023-05-12 15:36 | disposition home or self-care (01) ==
PROVIDERS: Emergency Provider Emergency Medicine Emergency Medical Services; PCP Internal Medicine
DX: R05.9 Cough, unspecified (principal); K52.9 Noninfective gastroenteritis and colitis, unspecified; H92.03 Otalgia, bilateral; F10.10 Alcohol abuse, uncomplicated; R07.89 Other chest pain; F13.10 Sedative, hypnotic or anxiolytic abuse, uncomplicated; Y90.6 Blood alcohol level of 120-199 mg/100 ml; F17.200 Nicotine dependence, unspecified, uncomplicated; Z71.6 Tobacco abuse counseling; Z20.822 Contact with and (suspected) exposure to COVID-19; Z20.828 Contact with and (suspected) exposure to other viral communicable diseases; Z79.899 Other long term (current) drug therapy
CPT/HCPCS: 36415; 70450; 71046; 74177; 80048; 80076; 80143; 80179; 80307; 81001; 82140; 82272; 83690; 84484; 84702; 85025; 85610; 86850; 86900; 86901; 87635; 87651; 93005; 96361; 96374; 99284; 99285; J2405; Q9967

== ENCOUNTER → 2023-05-12 10:13 | Outpatient (BNV) | payer MEDICARE, MEDICAID, SELFPAY | PROVIDERS: Emergency Provider Emergency Medicine Emergency Medical Services; PCP Internal Medicine; Visit Provider Internal Medicine Cardiovascular Disease | DX: R07.9 Chest pain, unspecified (principal) | CPT/HCPCS: 93010 ==

== ENCOUNTER 2023-06-17 13:17 | Outpatient (AMB) | payer MEDICARE, MEDICAID, SELFPAY ==
--- NOTE | 2023-06-17 13:23 | AM.OFFWIN_ITS ---
Intake Vital Signs 06/17/23 13:24 Height 5 ft 4 in BP 112/70 Blood Pressure Location Rt brachial Position Sitting Pulse 97 Pulse Source Pulse Oximeter Temp 97.8 F Temp Source Temporal Artery Scan Pulse Oximetry (%) 100 Oxygen Delivery Method Room Air Intake Visit Reasons: EST/left foot pain Intake Note: Pt is here c/o left foot pain since yesterday. Pt states she tripped on her shoe yesterday causing her foot to bend backwards. Patient Tobacco Use Status: Current everyday Tobacco user Allergies No Known Allergies [No Known Allergies*] Allergy (Verified 06/17/23 13:23) Do you need a note to return to daycare/school/sports/work: No HPI HPI Comments History of Present Illness Details This is a 47-year-old female who presents to the office today for sick visit. Patient complaining of left foot pain x1 day. Patient states she was walking on the sidewalk when the sole of her shoe detached causing her to trip and her foot hyperextended. She denies any numbness/weakness/paresthesias of her toes. She reports decreased extension of toes due to pain. Patient is otherwise feeling well. 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 Mother No problems noted. Family/Other Substance use disorder Maternal Grandmother Ovarian cancer Maternal Aunt Ovarian cancer Social History Housing: House Alcohol intake: current Alcohol intake frequency: 3 or more drinks per day Alcohol type: hard liquor Patient Tobacco Use Status: Current everyday Tobacco user Tobacco use type: Cigarette Cigarettes Per Day: 15 e-Cigarette/Vaping Use: Never Used Second Hand Smoke Exposure: No Substance Use Type: Marijuana service: No Current occupational status: unemployed Cognitive needs: No Hearing needs: No Vision needs: No Female Reproductive History Menstrual Age of Menarche: 10 Review of Systems Const All systems reviewed & are unremarkable except as noted in HPI and below Reports no additional complaints Eyes Reports no additional complaints ENT Reports no additional complaints Card Reports no additional complaints Resp Reports no additional complaints GI Reports no additional complaints Reports no additional complaints Musc Reports no additional complaints Skin/Breast Reports system reviewed and no additional complaints, except as documented Neuro Reports no additional complaints Psych Reports no additional complaints Endo Reports no additional complaints Valerio/Lymph Reports no additional complaints Aller/Immun Reports no additional complaints Physical Exam Vital Signs: Last Vital Signs Temp 97.8 F 06/17/23 13:24 Pulse 97 06/17/23 13:24 BP 112/70 06/17/23 13:24 Pulse Ox 100 06/17/23 13:24 Oxygen Delivery Method Room Air 06/17/23 13:24 Const General: cooperative, healthy appearing, no acute distress and well developed Orientation/consciousness: patient oriented x3 HEENT Head: Yes normal to inspection Ears: hearing grossly normal bilaterally General nose exam: Normal external nose present Face and sinus: Yes normal facial exam Mouth: Normal oral and palatal mucosa present Eyes General: appearance normal, both eyes and all related structures Pupils: Equal, round and reactive pupils present EOM: EOMs intact bilaterally Resp Effort & Inspection: normal respiratory effort and no respiratory distress Auscultation: clear to auscultation bilaterally Cardio Rate: regular rate Rhythm: regular rhythm Heart sounds: no gallops, no murmurs and no rubs Peripheral pulses: Peripheral pulses 2+ throughout GI Inspection: No distended Palpation (GI): Soft to palpation and nontender Auscultation: normal bowel sounds Skin General skin exam: no rashes or lesions noted Neuro General: patient oriented x3 Cranial nerves: Yes CN's II-XII intact bilaterally and Yes Equal, round and reactive pupils present Gait exam (Neuro): Normal gait present Motor exam (neuro): 5/5 motor strength present throughout Extrem Other: Mild tenderness to palpation of the dorsum of the left foot just proximal to the phalanges. Minimal ecchymosis/edema of the dorsum of the left foot located at the base of the 3rd and 4th phalanges. Minimally decreased extension of all 5 toes due to pain. No tenderness to palpation of the medial or lateral malleolus. No tenderness to palpation of the tibia/fibula. General: Yes normal to inspection Psych Appearance: grossly normal Mental Status: mental status grossly normal Assessment & Plan Assessment & Plan (1) Left foot pain: Code(s): M79.672 - Pain in left foot Plan: This is a 47-year-old female presenting with pain of the dorsum of her left foot following an injury in which she hyper-plantarflexed her left foot. On physical examination, there is minimal ecchymosis/edema of the dorsum of the left foot located at the base of the 3rd and 4th phalanges. History and physical most consistent with sprain/strain of the extensor digitorum ligaments and flexor muscles. X-ray of the left foot was obtained to rule out avulsion fracture. Recommend rest/activity modification, ice to the area, and elevation of the extremity. Continue with acetaminophen/ibuprofen for pain management as long as patient has no medical contraindications. Patient was provided with a walking shoe to help with ambulation. Orders: Orders XR foot LT min 3V Today M79.672 - Pain in left foot Coding Level of Care Code Est Pt Level 3 (51258) Diagnoses Left foot pain M79.672
[2023-06-17 13:24] VITALS: BP 112/70; PULSE 97; TEMP 36.6; O2SAT 100
== END 2023-06-17 14:29 | disposition home or self-care (01) ==
PROVIDERS: PCP Internal Medicine; Visit Provider Physician Assistant Medical
DX: M79.672 Pain in left foot (principal)
CPT/HCPCS: 99213

== ENCOUNTER 2023-06-17 14:06 | Outpatient (REF) | payer MEDICARE, MEDICAID, SELFPAY ==
--- NOTE | ~2023-06-17 | XR_ITS ---
EXAMINATION: XR FOOT, LEFT CLINICAL INFORMATION: Left foot pain. COMPARISON: None available. TECHNIQUE: AP, lateral, and oblique views of the left foot. FINDINGS: There is no acute fracture or dislocation. The tarsal bones are normally aligned. There is a very small plantar calcaneal spur. The soft tissues are unremarkable. No radiopaque foreign body. XR/XR foot LT min 3V IMPRESSION: Very small degenerative plantar calcaneal spur. No acute abnormality.
== END 2023-06-17 14:07 | disposition home or self-care (01) ==
LOC: HO.HMGCX 14:06
PROVIDERS: PCP Internal Medicine; Visit Provider Physician Assistant Medical
DX: M79.672 Pain in left foot (principal)
CPT/HCPCS: 73630

== ENCOUNTER 2023-07-26 14:03 | Outpatient (REF) | payer MEDICARE, MEDICAID, SELFPAY ==
--- NOTE | ~2023-07-26 | XR_ITS ---
EXAMINATION: XR RIBS, LEFT CLINICAL INFORMATION: Pleurodynia COMPARISON: Same day left humerus Chest 05/12/2023 TECHNIQUE: 3 views of the left ribs were obtained. FINDINGS: Lungs are clear. No consolidation, pneumothorax, or pleural effusion. The cardiomediastinal silhouette and pulmonary vasculature are normal. A radiopaque skin marker is placed lateral to the lateral left 10th rib corresponding to the area of pain indicated by the patient. No displaced left rib fracture. Nondisplaced fracture of the greater tuberosity of the left humerus is noted. XR/XR ribs LT min 3V w CXR1V IMPRESSION: 1. No displaced left rib fracture. 2. Nondisplaced fracture of the greater tuberosity of the left humerus.
--- NOTE | ~2023-07-26 | XR_ITS ---
EXAMINATION: XR HUMERUS, LEFT CLINICAL INFORMATION: Pain in left arm COMPARISON: Same day left RIBS TECHNIQUE: AP and lateral views of the left humerus. FINDINGS: There is a nondisplaced fracture of the greater tuberosity. This is better appreciated on the same day radiographs of the left ribs. No evidence of dislocation of the left shoulder. The elbow joint appears within normal limits. XR/XR humerus LT IMPRESSION: Nondisplaced fracture of the greater tuberosity of the left humerus.
== END 2023-07-26 14:04 | disposition home or self-care (01) ==
LOC: HO.XRAY 14:03
PROVIDERS: PCP Internal Medicine; Visit Provider Internal Medicine
DX: M79.602 Pain in left arm (principal); R07.81 Pleurodynia
CPT/HCPCS: 71101; 73060

== ENCOUNTER 2023-07-27 14:32 | Emergency (ER) | payer MEDICARE, MEDICAID, SELFPAY ==
--- NOTE | ~2023-07-27 | CT_ITS ---
EXAMINATION: CT HEAD WITHOUT CONTRAST CLINICAL INFORMATION: Fall. Loss of consciousness. COMPARISON: None available. TECHNIQUE: Contiguous axial imaging was performed from the skull base to vertex without intravenous administration of contrast. This CT examination was performed using dose optimization techniques as appropriate, variously including the following: *Automated exposure control *Adjustment of mA and/or kV according to patient size (this includes techniques or standardized protocols for targeted exams where dose is matched to indication/reason for exam; i.e. extremities or head) *Use of iterative reconstruction technique DLP: 527 mGy-cm FINDINGS: The lateral, third and fourth ventricles are normally outlined. The cortical sulci and basal cisterns are normally outlined as well. There is no acute territorial defect, hemorrhage or midline shift. The extra-axial spaces are unremarkable. Calvarium: Intact. Maxillofacial sinuses and mastoids: Clear as visualized. CT/CT head/brain wo IV con IMPRESSION: No acute intracranial pathology.
[2023-07-27 14:40] VITALS: BP 118/82; PULSE 97; RESP 18; TEMP 36.6; O2SAT 97; BMI 23.2
--- NOTE | 2023-07-27 14:40 | ED.GENADULT ---
HPI - General Adult General Chief complaint: General Medical Stated complaint: Med Clearance L Side Neck Hand Pain S/P Fall 07/25 Related Data Previous Rx's Medication Instructions Recorded lisinopril 2.5 mg tablet 2.5 mg PO DAILY #30 tabs 03/02/23 sertraline 50 mg tablet 50 mg PO DAILY 90 days #90 tabs 03/18/23 clonidine HCl 0.1 mg tablet 0.1 mg PO BEDTIME PRN anxiety #30 04/29/23 tabs pantoprazole 40 mg tablet,delayed 40 mg PO DAILY #90 tabs 05/09/23 release trazodone 50 mg tablet 50 mg PO BEDTIME PRN for insomnia 05/21/23 90 days #90 tabs alprazolam 1 mg tablet 1 mg PO TID PRN anxiety #86 tabs 07/21/23 nabumetone 750 mg tablet 750 mg PO BID 5 days #10 tabs 07/27/23 Allergies Allergy/AdvReac Type Severity Reaction Status Date / Time No Known Allergies Allergy Verified 07/28/23 18:46 [No Known Allergies*] [facility] Past Medical History Medical History Alcohol abuse Alcohol use disorder Alcoholic cirrhosis Alcoholism Anxiety Anxiety Chronic liver disease Depression Easy bruising 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 Mother No problems noted. Family/Other Substance use disorder Maternal Grandmother Ovarian cancer Maternal Aunt Ovarian cancer Social History Social History Housing: House Alcohol intake: current Alcohol intake frequency: 3 or more drinks per day Alcohol type: hard liquor Patient Tobacco Use Status: Current everyday Tobacco user Tobacco use type: Cigarette Cigarettes Per Day: 15 e-Cigarette/Vaping Use: Never Used Second Hand Smoke Exposure: No Substance Use Type: Marijuana Advance Directives: No Advance Directives Information Provided: No service: No Current occupational status: unemployed Cognitive needs: No Hearing needs: No Vision needs: No Physical Exam ED Vital Signs: BMI result Body Mass Index 23.2 Course Course Course Narrative: RME: 47yo F w/PMHx HTN, ETOH abuse, cirrhosis, anxiety, depression, c/o L sided rib pain & LUE pain s/p fall 2 days ago. +LOC, unknown head trauma, pt admits she was intoxicated. Also reports chronic abdominal pain and diarrhea. Last drink 30mins ago, drinks about 10-12 nips of vodka daily. Has been in ETOH withdrawal before w/hx withdrawal seizures and hallucinations. denies other drug use, denies SI/HI. Patient is interested in detox +ETOH odor on breath, appears intoxicated, mildly tremulous, no tongue fasciculations. +L anterior lateral rib ttp, no flail chest/ecchymosis. +LUE ttp w/decreased ROM. Abdomen w/upper abdomen ttp Labs, UA, Tox screen, Head CT, XR's, CIWA & Recovery consult ordered Full HPI, ROS and PE to be performed by primary ED provider. Reevaluation(s) Reevaluation #1: Called patient to inform her she has no displaced left rib, patient noted to have a nondisplaced fx of left humerus. Patient will try to come back in. Time: 17:47 Discharge Plan Discharge Clinical Impression: Rib pain on left side Patient Disposition: Left W/O Completing Treatment Prescriptions: No Action lisinopril 2.5 mg tablet 2.5 mg PO DAILY Qty: 30 2RF sertraline 50 mg tablet 50 mg PO DAILY 90 Days Qty: 90 1RF clonidine HCl 0.1 mg tablet 0.1 mg PO BEDTIME PRN (Reason: anxiety) Qty: 30 5RF pantoprazole 40 mg tablet,delayed release (DR/EC) 40 mg PO DAILY Qty: 90 2RF trazodone 50 mg tablet 50 mg PO BEDTIME PRN (Reason: for insomnia) 90 Days Qty: 90 1RF alprazolam 1 mg tablet 1 mg PO TID PRN (Reason: anxiety) Qty: 86 0RF nabumetone 750 mg tablet 750 mg PO BID 5 Days Qty: 10 0RF Discharge Date/Time: 07/27/23 15:59
== END 2023-07-27 15:59 | disposition left against medical advice (07) ==
LOC: HO.ED 15:56
PROVIDERS: Emergency Provider Emergency Medicine; PCP Internal Medicine
DX: R07.81 Pleurodynia (principal); R51.9 Headache, unspecified; M54.2 Cervicalgia; Z79.899 Other long term (current) drug therapy; F17.210 Nicotine dependence, cigarettes, uncomplicated; Z71.6 Tobacco abuse counseling
CPT/HCPCS: 70450; 99281; 99284

== ENCOUNTER 2023-07-28 18:25 | Emergency (ER) | payer MEDICARE, MEDICAID, SELFPAY ==
[2023-07-28 18:47] VITALS: BP 117/76; PULSE 90; RESP 16; TEMP 36.9; O2SAT 98; BMI 24.0
--- NOTE | 2023-07-28 18:58 | ED.EXTPRO ---
HPI - Extremity Problem General Chief complaint: Extremity Injury, Upper Stated complaint: fell, broken arm? etoh? Time Seen by Provider: 07/28/23 18:57 Source: patient Mode of arrival: ambulatory Limitations: no limitations History of Present Illness HPI Narrative: 47 yold female called back to the ED to receive a sling due to humerus Fracture. patient was unaware of Humerus Fracture due to leaving before results last ED visit. patient also states left lower rib pain where is the bruise from falling which was the cause of previous visit ( fall). Related Data Previous Rx's Medication Instructions Recorded lisinopril 2.5 mg tablet 2.5 mg PO DAILY #30 tabs 03/02/23 sertraline 50 mg tablet 50 mg PO DAILY 90 days #90 tabs 03/18/23 clonidine HCl 0.1 mg tablet 0.1 mg PO BEDTIME PRN anxiety #30 04/29/23 tabs pantoprazole 40 mg tablet,delayed 40 mg PO DAILY #90 tabs 05/09/23 release trazodone 50 mg tablet 50 mg PO BEDTIME PRN for insomnia 05/21/23 90 days #90 tabs alprazolam 1 mg tablet 1 mg PO TID PRN anxiety #86 tabs 07/21/23 nabumetone 750 mg tablet 750 mg PO BID 5 days #10 tabs 07/27/23 Allergies Allergy/AdvReac Type Severity Reaction Status Date / Time No Known Allergies Allergy Verified 07/28/23 18:46 [No Known Allergies*] Review of Systems Review of Systems: left arm pain. 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 Mother No problems noted. Family/Other Substance use disorder Maternal Grandmother Ovarian cancer Maternal Aunt Ovarian cancer Social History Social History Housing: House Alcohol intake: current Alcohol intake frequency: 3 or more drinks per day Alcohol type: hard liquor Patient Tobacco Use Status: Current everyday Tobacco user Tobacco use type: Cigarette Cigarettes Per Day: 15 e-Cigarette/Vaping Use: Never Used Second Hand Smoke Exposure: No Substance Use Type: Marijuana Advance Directives: No Advance Directives Information Provided: No service: No Current occupational status: unemployed Cognitive needs: No Hearing needs: No Vision needs: No Physical Exam Vital Signs: Vital Signs: Last Vital Signs Temp 98.4 F 07/28/23 18:47 Pulse 90 07/28/23 18:47 Resp 16 07/28/23 18:47 BP 117/76 07/28/23 18:47 Pulse Ox 98 07/28/23 18:47 O2 Del Method Room Air 07/28/23 18:47 BMI result Body Mass Index 24.0 Const: General: cooperative, healthy appearing, comfortable, no acute distress, well developed, alert and awake Orientation/consciousness: oriented to person, oriented to place, oriented to time and patient oriented x3 HEENT: Head: Yes normal to inspection, Yes No palpable skull fracture present, Yes normocephalic and Yes atraumatic Eyes: General: appearance normal, both eyes and all related structures Neck: Neck: Yes normal visual inspection, Yes full ROM, Yes no lymphadenopathy, Yes no meningeal signs, Yes trachea midline, Yes supple, No anterior neck swelling and No tender Chest: Chest palpation & inspection: normal inspection of the chest Chest/axillae images: 1. tenderness on palpation and ecchymosis. negative for crepitus. negative for rash. Resp: Effort & Inspection: normal respiratory effort and able to speak in complete sentences Cardio: Jugular venous distension: no JVD Heart sounds: S1 normal heart sound present and S2 normal heart sound present GI: Inspection: Yes normal to inspection and No abdominal wall ecchymosis Palpation (GI): Soft to palpation, not firm, nontender, no guarding and not rigid : General: Yes no CVA tenderness Back/Spine/Pelvis: Back: no CVA tenderness and No back tenderness Skin: General skin exam: no rashes or lesions noted, elasticity normal and turgor normal Neuro: General: oriented to person, oriented to place, oriented to time, patient oriented x3, gait normal, tone normal, moves all extremities, Normal light touch and pain sensation, no meningeal signs and no focal motor deficits Extrem: Shoulder/upper arm images: 1. positive for ecchymosis and tenderness on palpation. negative erythema. Neuro and vascular exam is intact. motor exam limited due to pain Psych: Appearance: grossly normal and well kempt Course Course Course Narrative: RME: 47 yold female comes back to the ED for left arm pain. patient has left 2 days ago before xray results. Patient called back for sling. no neck lidlien tenderness. rib xray normal days ago Medical Decision Making Medical Decision Making [facility] Narrative: 47 yold female presents to the ED for sling for humerus fracture she was unasare of an also left chest pain where contusion is presents from same fall. Xray from last visit shows normal rib/chest xray with no fractures or life threatening pulmonary diseases. Patient placed in sling. no further evaluation needed. Not suspecting brain bleed, cervical spne fracture, TN, pneumo/hemothorax, compartment syndrome, DVT, or other life threatening diagnosis. patient placed in sling Differential Diagnosis Differential Diagnoses: The differential diagnosis associated with the presentation includes (humerus fracture, chest wall contusion) External Record Review External record reviewed: Other (Prior ED visit) Tests considered The following testing was considered but not selected: labs imagin Prescription Management I considered prescription management with: Pain Medication Discharge Plan Discharge Clinical Impression: Fracture, humerus closed, Chest wall contusion Patient Disposition: Home, Self-Care Instructions: Arm Fracture in Adults (ED), Contusion in Adults (ED), Shoulder Immobilizer (ED) Additional Instructions: Please follow-up with orthopedic surgeon. Return to the ED immediately for any arm swelling, bluish/discoloration, numbness/tingling, fever, chills, rectal pain bleeding, coughing up blood, abdominal pain, shortness of breath, crushing chest pain, or any symptoms. Please follow-up also with your primary care provider. Take Motrin at home for pain relief. Prescriptions: No Action lisinopril 2.5 mg tablet 2.5 mg PO DAILY Qty: 30 2RF sertraline 50 mg tablet 50 mg PO DAILY 90 Days Qty: 90 1RF clonidine HCl 0.1 mg tablet 0.1 mg PO BEDTIME PRN (Reason: anxiety) Qty: 30 5RF pantoprazole 40 mg tablet,delayed release (DR/EC) 40 mg PO DAILY Qty: 90 2RF trazodone 50 mg tablet 50 mg PO BEDTIME PRN (Reason: for insomnia) 90 Days Qty: 90 1RF alprazolam 1 mg tablet 1 mg PO TID PRN (Reason: anxiety) Qty: 86 0RF nabumetone 750 mg tablet 750 mg PO BID 5 Days Qty: 10 0RF Referrals: [facility] [place] Orthopedic Surgeons [Provider Group] (Left humeral fracture) Stand Alone Forms: Work/School Release Interventions: ED Discharge Assessment Last Done: 07/28/23 19:13 Discharge Date/Time: 07/28/23 19:14 Print Language: [place]
== END 2023-07-28 19:14 | disposition home or self-care (01) ==
PROVIDERS: Emergency Provider Emergency Medicine Emergency Medical Services; PCP Internal Medicine
DX: S42.302A Unspecified fracture of shaft of humerus, left arm, initial encounter for closed fracture (principal); S20.212A Contusion of left front wall of thorax, initial encounter; W19.XXXA Unspecified fall, initial encounter; M79.602 Pain in left arm; F17.210 Nicotine dependence, cigarettes, uncomplicated; F12.90 Cannabis use, unspecified, uncomplicated; Y93.9 Activity, unspecified; Y92.9 Unspecified place or not applicable; Y99.9 Unspecified external cause status
CPT/HCPCS: 99282

== ENCOUNTER 2023-08-03 13:50 | Outpatient (AMB) | payer MEDICARE, MEDICAID, SELFPAY ==
[2023-08-03 13:54] VITALS: BP 132/80; BMI 23.9
--- NOTE | 2023-08-03 13:54 | A.OFFPC_ITS ---
Vital Signs 08/03/23 13:54 Height 5 ft 4 in Weight 139 lb BMI 23.9 BP 132/80 Blood Pressure Location Lt brachial Position Sitting Intake Visit Reasons: ED f/u Intake Note: Patient [place] [facility] [place] Bus Operator Required: No Accompanied by: Self / Same As Patient Allergies No Known Allergies [No Known Allergies*] Allergy (Verified 08/03/23 13:55) Medication List - Last Reconciled 08/03/23 by Joan Tadeo MD alprazolam 1 mg PO TID PRN clonidine HCl 0.1 mg PO BEDTIME PRN nabumetone 750 mg PO BID 5 days sertraline 50 mg PO DAILY 90 days trazodone 50 mg PO BEDTIME PRN 90 days Tobacco use date assessed: 02/10/23 Dental Screening Dental Screen Date: 08/03/23 Did you have a dental visit in the last 12 months?: No Did you have a dental problem in the last 6 months where you did not have access to dental care?: No Was dental information given to patient?: Patient has dentist HPI HPI Comments History of Present Illness Details This is a 47-year-old female with mild major depression, anxiety and severe alcohol use disorder that comes for hospital discharge follow-up with discharge date 07/28/2023 due to left humerus fracture and rib pain after falling few days ago. She admits she fell while intoxicated with alcohol. She has a nondisplaced fracture and use a sling. She does not want an orthopedic referral because it will heal on its own and I agree. Depression stable with SSRIs. Anxiety well controlled with benzodiazepines as needed. Was advised to cut down on drinking alcohol. In April 2023 had a positive occult blood in stool and she had a colonoscopy in 2014 that was normal. She is to follow with Gastroenterology but has not seen Dr. David in a while. I will refer her again to see Gastroenterology. 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 Mother No problems noted. Family/Other Substance use disorder Maternal Grandmother Ovarian cancer Maternal Aunt Ovarian cancer Social History Housing: House Alcohol intake: current Alcohol intake frequency: 3 or more drinks per day Alcohol type: hard liquor Patient Tobacco Use Status: Current everyday Tobacco user Tobacco use type: Cigarette Cigarettes Per Day: 15 e-Cigarette/Vaping Use: Never Used Second Hand Smoke Exposure: No Substance Use Type: Marijuana service: No Current occupational status: unemployed Cognitive needs: No Hearing needs: No Vision needs: No Female Reproductive History Menstrual Age of Menarche: 10 Questionnaire Thrive Questionnaire Date Thrive assessed: 10/29/22 BASIL-7 AMB Questionnaire BASIL-7 Date BASIL - 7 assessed: 02/10/23 (pt taking medication for anxiety ) Source: Developed by Drs. Shubham Wellington, Alecia Dunlap, Newton Medina and colleagues, with an educational nafisa from [employer]. Review of Systems Const All systems reviewed & are unremarkable except as noted in HPI and below Eyes Reports no additional complaints, Denies change in vision and Denies other visual disturbances Card Denies chest pain at rest, Denies chest pain with activity, Denies edema, Denies irregular heart rhythm, Denies claudication, Denies dyspnea, Denies dyspnea on exertion, Denies orthopnea, Denies paroxysmal nocturnal dyspnea and Denies slow heart rate Resp Denies cough, Denies dyspnea and Denies dyspnea on exertion GI Denies abdominal pain, Denies change in bowel habits, Denies excessive flatus, Denies nausea and Denies vomiting Denies urinary incontinence, Denies urinary hesitancy and Denies urinary urgency Musc Denies abnormal gait, Denies atrophy, Denies deformity and Denies limited range of motion Skin/Breast Denies bleeding lesions, Denies changing lesions and Denies rash Neuro Denies abnormal gait and Denies lack of coordination Physical exam (Primary Care) Vital Signs: Last Vital Signs BP 132/80 08/03/23 13:54 BMI result Body Mass Index 23.9 Tobacco/Smoking Status: Tobacco use Status Tobacco use date assessed 02/10/23 08/03/23 13:59 Patient Tobacco Use Status Current everyday Tobacco 08/03/23 13:59 Tobacco use type Cigarette 08/03/23 13:59 e-Cigarette/Vaping Use Never Used 08/03/23 13:59 Thrive Assessment: Date of Thrive Assessment Date Thrive assessed 10/29/22 08/03/23 13:59 Eyes General: appearance normal, both eyes and all related structures Eyelids: Yes eyelids normal Conjunctivae: conjunctivae normal Neck Neck: Yes normal visual inspection and Yes supple Resp Effort & Inspection: normal respiratory effort Auscultation: clear to auscultation bilaterally Cardio Jugular venous distension: no JVD Rate: regular rate Rhythm: regular rhythm Heart sounds: S1 normal heart sound present and S2 normal heart sound present Skin Other: Left upper arm ecchymosis and tenderness Extrem General: Yes full ROM Office Procedures Flu Questionnaire Does the patient have a severe egg allergy?: No Immunizations flu vacc [id number] 6mos up(PF) 60 mcg(15 mcgx4)/0.5 mL IM syringe Performing Provider: Joan Tadeo MD Per[facility] Documented (not given) by: JANET Galicia on 08/03/23 14:16 Reason Not Given: Patient Refused Assessment and Plan Assessment & Plan (1) Hospital discharge follow-up: Code(s): Z09 - Encounter for follow-up examination after completed treatment for conditions other than malignant neoplasm Plan: Discharge date 07/28/2023 due to continue use rib pain and left arm pain secondar y to a fall after alcohol intoxication. Had head CT that was normal. She had a sling placed. Feels markedly improved. (2) Positive occult stool blood test: Code(s): R19.5 - Other fecal abnormalities Plan: Referred to Gastroenterology. (3) Alcohol use disorder, severe, dependence: Code(s): F10.20 - Alcohol dependence, uncomplicated Plan: Advised to cut down on drinking alcohol. (4) Mild recurrent major depression: Code(s): F33.0 - Major depressive disorder, recurrent, mild Plan: Continue SSRIs. (5) Anxiety: Code(s): F41.9 - Anxiety disorder, unspecified Plan: Continue benzodiazepines as needed. (6) Left humeral fracture: Code(s): S42.302A - Unspecified fracture of shaft of humerus, left arm, initial encounter for closed fracture Plan: Continue the use of a sling. Orders: Orders Influenza [id number] Immunization Today Z23 - Encounter for immunization Referrals Gastroenterology Referral R19.5 - Other fecal abnormalities Medications: Refilled nabumetone 750 mg PO BID 5 days 10 tabs 0RF Coding Level of Care Code TCM Mod MDM <= 7 Days Diagnoses Hospital discharge follow-up Z09 Positive occult stool blood test R19.5 Alcohol use disorder, severe, dependence F10.20 Mild recurrent major depression F33.0 Anxiety F41.9 Left humeral fracture S42.302A Time Spent (min) 23
== END 2023-08-03 14:16 | disposition home or self-care (01) ==
PROVIDERS: PCP Internal Medicine; Visit Provider Internal Medicine
DX: R19.5 Other fecal abnormalities (principal); F10.20 Alcohol dependence, uncomplicated; K70.30 Alcoholic cirrhosis of liver without ascites; F33.0 Major depressive disorder, recurrent, mild; Z09 Encounter for follow-up examination after completed treatment for conditions other than malignant neoplasm; F41.9 Anxiety disorder, unspecified; S42.302A Unspecified fracture of shaft of humerus, left arm, initial encounter for closed fracture
CPT/HCPCS: 99214

== ENCOUNTER 2023-08-31 17:26 | Emergency (ER) | payer MEDICARE, MEDICAID, SELFPAY ==
--- NOTE | ~2023-08-31 | CT_ITS ---
EXAMINATION: CT ABDOMEN AND PELVIS WITH CONTRAST CLINICAL INFORMATION: Abdominal pain COMPARISON: Previous CT of the abdomen and pelvis most recent April 2023 TECHNIQUE: Multidetector volumetric images were obtained from the superior aspect of the liver through the pubic symphysis following administration 85 mL of Omnipaque 350 intravenous contrast. Sagittal and coronal reformatted images were obtained on the technologist's workstation. Oral contrast: Yes This CT examination was performed using dose optimization techniques as appropriate, variously including the following: *Automated exposure control *Adjustment of mA and/or kV according to patient size (this includes techniques or standardized protocols for targeted exams where dose is matched to indication/reason for exam; i.e. extremities or head) *Use of iterative reconstruction technique DLP: 456 mGy-cm FINDINGS: LUNG BASES: The visualized lung bases are unremarkable. LIVER, GALLBLADDER, AND BILIARY TREE: The liver is cirrhotic. There liver is low in attenuation suggestive of fatty interval. There is question of a low-attenuation lesion in the right lobe of the liver measuring 0.9 x 1.5 cm axial image 25 series 3 versus artifact from the adjacent rib.. No other focal liver lesion. The gallbladder is normal. There is no biliary duct dilatation. No ascites PANCREAS: Unremarkable. SPLEEN: Unremarkable. ADRENAL GLANDS: Unremarkable. KIDNEYS AND URETERS: The kidneys are normal in size, shape, and attenuation. No hydronephrosis, hydroureter, or calculi seen. No perinephric stranding. BLADDER: Unremarkable. GASTROINTESTINAL TRACT: There is wall thickening and edema of the distal colon questionable for colitis. There is fatty infiltration of the cecum and proximal colon. This is a nonspecific finding but can be seen with changes from old colitis. Diverticulum adjacent to the pancreas. Small and large bowel is otherwise unremarkable. The appendix is normal. ABDOMINAL WALL: Small umbilical hernia containing fat. LYMPH NODES: Normal. VASCULAR: Unremarkable. Portal veins are patent. No varices. No ascites or PELVIC VISCERA: There is heterogeneous low-attenuation seen centrally in the uterus. Adnexa appear unremarkable. OSSEOUS STRUCTURES: Bilateral femoral head AVN. Degenerative disc disease at L5-S1. CT/CT abdomen pelvis w IV con IMPRESSION: Cirrhotic liver. Question 9 x 15 mm low-attenuation lesion in the right lobe of the liver versus artifact from the adjacent rib. Follow-up liver MRI recommended. Question mild active colitis of the distal left colon. Heterogeneous attenuation of the central uterus. This could be better evaluated with pelvic ultrasound. Fleischner guidelines were followed.
[2023-08-31 17:49] VITALS: BP 151/90; PULSE 97; RESP 16; TEMP 35.7; O2SAT 96; BMI 23.3
[2023-08-31 18:35] VITALS: BP 123/79; PULSE 98; RESP 16; O2SAT 97
--- NOTE | 2023-08-31 18:41 | ED.ALCOHOL ---
HPI - Alcohol General Chief Complaint: ETOH/Substance Use Stated Complaint: med clearance Time Seen by Provider: 08/31/23 18:20 Source: patient Mode of arrival: ambulatory Limitations: no limitations History of Present Illness HPI narrative: 47-year-old female history of alcohol use dependency left humeral fracture rib pain on left side uncontrolled hypertension back pain benzodiazepine abuse alcohol abuse depression history of cirrhosis marijuana abuser and anxiety presents emergency department complaining of acute on chronic abdominal pain as well as alcohol use. Patient admits to several nebs today. She denies any falls or injuries she denies cough fever chest pain. States that her pancreas and her liver hurt and then points to areas of her abdomen that are not related to her pancreas or liver. Related Data Previous Rx's Medication Instructions Recorded sertraline 50 mg tablet 50 mg PO DAILY 90 days #90 tabs 03/18/23 clonidine HCl 0.1 mg tablet 0.1 mg PO BEDTIME PRN anxiety #30 04/29/23 tabs trazodone 50 mg tablet 50 mg PO BEDTIME PRN for insomnia 05/21/23 90 days #90 tabs nabumetone 750 mg tablet 750 mg PO BID 5 days #10 tabs 08/03/23 alprazolam 1 mg tablet 1 mg PO TID PRN anxiety #86 tabs 08/17/23 Allergies Allergy/AdvReac Type Severity Reaction Status Date / Time No Known Allergies Allergy Verified 08/03/23 13:55 [No Known Allergies*] Review of Systems Review of Systems: Review of systems: General: Patient denies any fever chills recent illness or falls Musculoskeletal: Denies back pain or body aches or other injuries HEENT: denies headache, runny nose, ear pain Respiratory: denies shortness of breath, cough Cardiovascular: no chest pain or palpitations : denies dysuria, frequency Abdomen: no nausea vomiting generalized abdominal pain Extremities: no swelling, no pain Skin: no diaphoresis Yes all other systems are reviewed and are negative PMFSH Past Medical History Medical History Alcohol abuse Alcohol use disorder Alcoholic cirrhosis Alcoholism Anxiety Anxiety Chronic liver disease Depression Easy bruising 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 Mother No problems noted. Family/Other Substance use disorder Maternal Grandmother Ovarian cancer Maternal Aunt Ovarian cancer Social History Social History Housing: House Alcohol intake: current Alcohol intake frequency: 3 or more drinks per day Alcohol type: hard liquor Patient Tobacco Use Status: Current everyday Tobacco user Tobacco use type: Cigarette Cigarettes Per Day: 15 Smoked in Last 30 Days: No e-Cigarette/Vaping Use: Never Used Second Hand Smoke Exposure: No Use of substances other than those prescribed or required for medical reasons: No Substance Use Type: Marijuana Advance Directives: No service: No Current occupational status: unemployed Cognitive needs: No Hearing needs: No Vision needs: No Physical Exam ED Vital Signs: Vital Signs - 24 hr 08/31/23 17:49 08/31/23 18:35 08/31/23 20:33 Temperature 96.3 F L 98.1 F Pulse Rate 97 98 102 H Respiratory Rate 16 16 18 Blood Pressure 151/90 H 123/79 117/79 Pulse Oximetry 96 97 97 Oxygen Delivery Method Room Air Room Air Room Air BMI result Body Mass Index 23.3 General: Obvoiusly intoxicatedWell-appearing well-nourished in no signs of distress HEENT: Normocephalic atraumatic Neck: No signs of JVD, no masses no tenderness or lymphadenopathy Cardiovascular: Regular rate and rhythm Respiratory: Clear to auscultation bilaterally Abdomen: Soft nontender no masses Extremities: Normal pedal pulses no signs of edema Skin: Dry warm no rashes Back: No tenderness full ROM Course Reevaluation(s) Reevaluation #1: 2134 Sleeping comfortably in the room no signs of withdrawal pain controlled. CT and labs are all baseline. I will consult care team for detox. Medical Decision Making Medical Decision Making MDM Narrative: I will give patient fluids will check labs and reassess. Differential Diagnosis Differential Diagnoses: The differential diagnosis associated with the presentation includes Abdominal pain cirrhosis alcohol intoxication gastritis pancreatitis SBP is on the differential with no fluid in the belly and a benign exam I do not think she has SBP. Lab Data 08/31/23 19:18 08/31/23 19:18 Labs: Lab Results 08/31/23 Range/Units 19:18 WBC 6.3 (4.8-10.8) X10*3/uL RBC 3.73 L (4.20-5.50) X10*6/uL Hgb 13.4 D (12.0-16.0) g/dl Hct 38.8 (37.0-47.0) % MCV 104.0 H (80.0-98.0) fL MCH 35.9 H (27.0-33.0) pg MCHC 34.5 (31.0-35.0) g/dl RDW 15.0 (11.0-16.0) % Plt Count 206 D (160-400) X10*3/uL MPV 10.5 (9.4-12.3) fL Immature Gran % (Auto) 0.3 (0.0-0.4) % Neut % (Auto) 36.6 L (45-73) % Lymph % (Auto) 51.9 H (20-40) % [place] % (Auto) 7.5 (2-11) % Eos % (Auto) 2.7 (0-4) % Baso % (Auto) 1.0 (0-2) % Lymph # (Auto) 3.3 (1.2-4.9) X10*3/uL [place] # (Auto) 0.5 (0.1-1.2) X10*3/uL Eos # (Auto) 0.2 (0.0-0.4) X10*3/uL Baso # (Auto) 0.1 (0.0-0.2) X10*3/uL Abs Immat Gran (auto) 0.02 (0.00-0.03) X10*3/uL Absolute Neuts (auto) 2.3 (2.0-8.3) x10*3/uL Absolute Nucleated RBC 0.000 (0.0-0.012) X10*3/uL Nucleated RBC % (auto) 0.0 (0.0-0.2) /100WBC PT 11.9 (11.1-13.3) SEC INR 1.0 (0.9-1.1) Sodium 143 (135-145) mmol/L Potassium 3.3 (3.3-5.1) mmol/L Chloride 107 (96-108) mmol/L Carbon Dioxide 27 (22-29) mmol/L Anion Gap 12 (12-20) BUN 9 (9-16) mg/dL Creatinine 0.73 (0.5-1.4) mg/dL Estim Creat Clear Calc 83.8 Estimated GFR > 60 Random Glucose 120 H (60-115) mg/dL Calcium 9.0 (8.4-10.2) mg/dL Total Bilirubin 0.2 (0.0-1.0) mg/dL Direct Bilirubin < 0.2 (0.0-0.5) mg/dL AST 157 H (5-31) U/L ALT 62 H (0-31) U/L Alkaline Phosphatase 182 H (39-117) U/L Ammonia 42 (13-55) umol/L Total Protein 7.9 (6.5-8.0) g/dL Albumin 4.2 (3.5-5.0) g/dL Lipase 43 (8-78) U/L Urine Color Yellow Urine Appearance Clear Urine pH 6.0 (5.0-9.0) Ur Specific [place] <= 1.005 (1.005-1.025) Urine Protein Negative (Neg-Trace) mg/dL Urine Glucose (UA) Negative (Negative) mg/dL Urine Ketones Negative (Negative) mg/dL Urine Blood Trace H (Negative) Urine Nitrite Negative (Negative) Ur Leukocyte Esterase Negative (Negative) Urine RBC 0-2 (0-2) /HPF Urine WBC 0-5 (0-5) /HPF Ur Squamous Epith Cells 0-2 (0-2) /HPF Urine Bacteria None Seen (None Seen) Hyaline Casts 0-2 (0-2) /LPF Medications Administered Discontinued Medications Generic Name Dose Route Start Last Admin Trade Name Freq PRN Reason Stop Dose Admin Diphenhydramine HCl 25 mg 08/31/23 18:44 08/31/23 20:09 Diphenhydramine Hcl 50 Mg/Ml Vial IVPUSH 08/31/23 18:45 Not Given ONCE ONE Haloperidol Lactate 5 mg 08/31/23 18:44 08/31/23 20:09 Haloperidol Lactate 5 Mg/Ml Vial IVPUSH 08/31/23 18:45 Not Given STAT STA Sodium Chloride 1,000 mls @ 999 mls/hr 08/31/23 18:45 08/31/23 20:02 Ns IV 08/31/23 19:45 999 mls/hr .Q1H1M KAITY Administration Iohexol 100 ml 08/31/23 20:32 08/31/23 20:32 Iohexol 350 Mg/Ml 100 Ml Infus..Btl IV 08/31/23 20:33 85 ml ONCE ONE Administration Morphine Sulfate 4 mg 08/31/23 18:44 08/31/23 20:03 Morphine Sulfate 4 Mg/Ml Cartridge IVPUSH 08/31/23 18:45 4 mg ONCE ONE Administration Protocol Procedures Procedure Narrative Procedure Narrative: Bedside ultrasound performed to see if there is an area where I could do a paracentesis. She has not had a paracentesis she states for almost 10 years. I did not see an area of fluid do not think this is spontaneous bacterial peritonitis Discharge Plan Discharge Clinical Impression: Alcoholic cirrhosis, Alcohol use disorder, Alcoholism, Abdominal pain Patient Disposition: Home, Self-Care Instructions: Abuse of Alcohol (DC), Abdominal Pain (ED) Additional Instructions: You were seen today in the emergency department for abdominal pain and alcohol abuse. You had CT and labs done and were seen for detox. Please call to follow up. Prescriptions: No Action sertraline 50 mg tablet 50 mg PO DAILY 90 Days Qty: 90 1RF clonidine HCl 0.1 mg tablet 0.1 mg PO BEDTIME PRN (Reason: anxiety) Qty: 30 5RF trazodone 50 mg tablet 50 mg PO BEDTIME PRN (Reason: for insomnia) 90 Days Qty: 90 1RF alprazolam 1 mg tablet 1 mg PO TID PRN (Reason: anxiety) Qty: 86 0RF nabumetone 750 mg tablet 750 mg PO BID 5 Days Qty: 10 0RF
[2023-08-31 19:22] LABS: MANUAL DIFF FLAG NO
[2023-08-31 19:24] LABS: Basophils Absolute Auto 0.1 X10*3/uL (0.0-0.2); Eosinophils Absolute Auto 0.2 X10*3/uL (0.0-0.4); Eosinophils Percent Auto 2.7 % (0-4); Hematocrit 38.8 % (37.0-47.0); Hemoglobin 13.4 g/dl (12.0-16.0); Imm Gran Abs Auto 0.02 X10*3/uL (0.00-0.03); Imm Gran Pct Auto 0.3 % (0.0-0.4); Lymphocytes Absolute Auto 3.3 X10*3/uL (1.2-4.9); Lymphocytes Percent Auto 51.9 % (20-40); Mean Corpuscular HGB Conc 34.5 g/dl (31.0-35.0); Mean Corpuscular Hemoglobin 35.9 pg (27.0-33.0); Mean Platelet Volume 10.5 fL (9.4-12.3); Monocytes Absolute Auto 0.5 X10*3/uL (0.1-1.2); Monocytes Percent Auto 7.5 % (2-11); Neutrophils Absolute Auto 2.3 x10*3/uL (2.0-8.3); Neutrophils Percent Auto 36.6 % (45-73); Platelet Count 206 X10*3/uL (160-400); Red Blood Count 3.73 X10*6/uL (4.20-5.50); White Blood Count 6.3 X10*3/uL (4.8-10.8)
[2023-08-31 19:25] LABS: Appearance Urine Clear; Color Urine Yellow; Glucose Urine UA Negative (Negative); Leukocyte Esterase Urine Negative (Negative); Nitrite Urine Negative (Negative); Specific Gravity - Urine <= 1.005 (1.005-1.025); UMIC TRIGGER UACC YES; Urine Blood Trace (Negative); Urine Ketones Negative (Negative); Urine Protein Negative (Neg-Trace)
[2023-08-31 19:28] LABS: Bacteria Urine None Seen (None Seen); Hyaline Casts Urine 0-2 /LPF (0-2); RBC Urine 0-2 /HPF (0-2); Squamous Epithelial Cell Urine 0-2 /HPF (0-2); WBC Urine 0-5 /HPF (0-5)
[2023-08-31 19:31] LABS: Ammonia 42 umol/L (13-55)
[2023-08-31 19:40] LABS: Alanine Aminotransferase 62 U/L (0-31); Albumin Level 4.2 g/dL (3.5-5.0); Alkaline Phosphatase 182 U/L (39-117); Anion Gap 12 (12-20); Aspartate Amino Transferase 157 U/L (5-31); Bilirubin Direct < 0.2 mg/dL (0.0-0.5); Bilirubin Total 0.2 mg/dL (0.0-1.0); Blood Urea Nitrogen 9 mg/dL (9-16); Carbon Dioxide 27 mmol/L (22-29); Chloride 107 mmol/L (96-108); Creatinine Clr Calc Pharmacy 83.8; Estimated Glomerular Filt Rate > 60; Glucose Random 120 mg/dL (60-115); Lipase 43 U/L (8-78); Potassium 3.3 mmol/L (3.3-5.1); Sodium 143 mmol/L (135-145); Total Protein 7.9 g/dL (6.5-8.0)
[2023-08-31 19:44] LABS: Prothrombin Time 11.9 SEC (11.1-13.3)
[2023-08-31] MEDS: 0.9 % Sodium Chloride 1,000 ML 999 ML IV (20:02)
[2023-08-31] MEDS: Morphine Sulfate 4 MG/ML CARTRIDGE IVPUSH (20:03)
--- NOTE | 2023-08-31 20:11 | PC.NURSE ---
this rn assumed care of pt. pt a&ox4, respirations even and unlabored. pt reports abdominal pain 06/09. abdomen soft but tender to touch in all 4 quadrants. pt has hypoactive bowel sounds in all 4 quadrants. pt sleeping, per provider verbal order hold iv haldol and Benadryl due to pt being drowsy at this time. IV established at this time, fluids hung and pain meds given. CT aware to bring pt.
[2023-08-31] MEDS: iohexoL 350 MG/ML 100 ML INFUS..BTL IV (20:32)
[2023-08-31 20:33] VITALS: BP 117/79; PULSE 102; RESP 18; TEMP 36.7; O2SAT 97
--- NOTE | 2023-08-31 21:19 | PC.NURSE ---
at this time, pt denies SI/HI. 1:[address]/t pt making SI states upon arrival to the ED.
--- NOTE | 2023-08-31 22:02 | PC.NURSE ---
pt requesting to leave at this time, pt denies si/hi and reports she will have her friend pick her up. provider aware at this time, pt ready for discharge.
== END 2023-08-31 22:21 | disposition home or self-care (01) ==
PROVIDERS: Emergency Provider Student in an Organized Health Care Education/Training Program
DX: K70.30 Alcoholic cirrhosis of liver without ascites (principal); F10.20 Alcohol dependence, uncomplicated; Y90.9 Presence of alcohol in blood, level not specified; R10.84 Generalized abdominal pain; F12.10 Cannabis abuse, uncomplicated; F17.210 Nicotine dependence, cigarettes, uncomplicated
CPT/HCPCS: 36415; 74177; 80048; 80076; 81001; 82140; 83690; 85025; 85610; 96361; 96374; 99284; J2270; Q9967

== ENCOUNTER 2023-10-11 10:48 | Outpatient (AMB) | payer MEDICARE, MEDICAID, SELFPAY ==
[2023-10-11 10:52] VITALS: BP 132/90; PULSE 112; O2SAT 96; BMI 22.8
--- NOTE | 2023-10-11 10:52 | A.OFFPC_ITS ---
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 Patient reports that left upper arm pain radiates up to her shoulder with movement. Does not take anything for pain. No shortness of breath or chest pain. Reports intermittent numbness/tingling in left upper arm. Reports drinking 4-6 nips of vodka per day-interested in comprehensive care clinic referral-encouraged alcohol cessation. 07/2023 XR/XR humerus LT IMPRESSION: Nondisplaced fracture of the greater tuberosity of the left humerus. 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 Mother No problems noted. Family/Other Substance use disorder Maternal Grandmother Ovarian cancer Maternal Aunt Ovarian cancer Social History Housing: House Alcohol intake: current Alcohol intake frequency: 3 or more drinks per day Alcohol type: hard liquor Patient Tobacco Use Status: Current everyday Tobacco user Tobacco use type: Cigarette Cigarettes Per Day: 15 e-Cigarette/Vaping Use: Never Used Second Hand Smoke Exposure: No Substance Use Type: Marijuana service: No Current occupational status: unemployed Cognitive needs: No Hearing needs: No Vision needs: No Female Reproductive History Menstrual Age of Menarche: 10 Questionnaire Thrive Questionnaire Date Thrive assessed: 10/29/22 AUDIT C Alcohol Use Questionnaire (AUDIT-C) 1. How often do you have a drink containing alcohol?: 4 or more times a week 2. How many drinks containing alcohol do you have on a typical day when you are drinking?: 5 or 6 3. How often do you have six or more drinks on one occasion?: Daily or almost daily Total Score: 10 Score Reviewed/Action Taken: Yes BASIL-7 AMB Questionnaire BASIL-7 Date BASIL - 7 assessed: 02/10/23 Source: Developed by Drs. Shubham Wellington, Alecia Dunlap, Newton Medina and colleagues, with an educational nafisa from [employer]. Review of Systems Const Denies body aches, Denies chills, Denies fever(s) and Denies headache(s) ENT Denies dizziness, Denies otalgia, Denies headache(s), Denies nasal discharge, Denies sinus pain and Denies sore throat Card Denies chest pain, Denies edema, Denies lightheadedness and Denies dyspnea Resp Denies cough, Denies dyspnea and Denies wheezing GI Denies abdominal pain Musc Reports as per HPI and Denies myalgias Skin/Breast Denies rash Neuro Denies dizziness and Denies headache(s) Aller/Immun Denies wheezing Physical exam (Primary Care) Vital Signs: Last Vital Signs Pulse 112 H 10/11/23 10:52 BP 132/90 H 10/11/23 10:52 Pulse Ox 96 10/11/23 10:52 Oxygen Delivery Method Room Air 10/11/23 10:52 BMI result Body Mass Index 22.8 Tobacco/Smoking Status: Tobacco use Status Tobacco use date assessed 10/11/23 10/11/23 10:57 Patient Tobacco Use Status Current everyday Tobacco 10/11/23 10:57 Tobacco use type Cigarette 10/11/23 10:57 e-Cigarette/Vaping Use Never Used 10/11/23 10:57 Thrive Assessment: Date of Thrive Assessment Date Thrive assessed 10/29/22 10/11/23 10:57 Const General: cooperative and no acute distress Orientation/consciousness: patient oriented x3 HENMT Head: Yes normocephalic and Yes atraumatic Throat: Yes posterior oropharynx normal Eyes General: appearance normal, both eyes and all related structures Neck Neck: Yes normal visual inspection and Yes full ROM Resp Effort & Inspection: normal respiratory effort and able to speak in complete sentences Auscultation: clear to auscultation bilaterally, no crackles, no rales, no rhonchi and no wheezes Cardio Rate: regular rate Rhythm: regular rhythm Heart sounds: S1 normal heart sound present and S2 normal heart sound present Peripheral pulses: radial pulses present on the left GI Auscultation: normal bowel sounds Neuro General: patient oriented x3 Gait exam (Neuro): Normal gait present Extrem Other: Left upper arm nontender to palpation, slightly raised area noted to palpation - nontender, patient reports pain radiate to left shoulder with range of motion, left shoulder nontender. General: Yes full ROM and No edema Assessment and Plan Assessment & Plan (1) Left humeral fracture: Code(s): S42.302A - Unspecified fracture of shaft of humerus, left arm, initial encounter for closed fracture Plan: PT referral Orthopedic referral Will provide patient with lidocaine patch, nabumetone refilled (2) Alcohol use disorder, severe, dependence: Code(s): F10.20 - Alcohol dependence, uncomplicated Plan: Comprehensive care clinic referral Encouraged alcohol cessation Orders: Orders PT Evaluation and Treatment Today S42.302A - Unspecified fracture of shaft of humerus, left arm, initial encounter for closed fracture Referrals Orthopedics Referral S42.302A - Unspecified fracture of shaft of humerus, left arm, initial encounter for closed fracture Addiction Medicine Referral F10.20 - Alcohol dependence, uncomplicated Medications: New lidocaine 4% (Aspercreme (lidocaine)) 1 patch topical DAILY PRN 30 ea 0RF pain S42.302A - Unspecified fracture of shaft of humerus, left arm, initial encounter for closed fracture Refilled nabumetone 750 mg PO BID 5 days 10 tabs 0RF Coding Level of Care Code Est Pt Level 3 (54438) Diagnoses Left humeral fracture S42.302A Alcohol use disorder, severe, dependence F10.20
== END 2023-10-11 11:10 | disposition home or self-care (01) ==
PROVIDERS: Visit Provider Nurse Practitioner Family
DX: S42.302A Unspecified fracture of shaft of humerus, left arm, initial encounter for closed fracture (principal); F10.20 Alcohol dependence, uncomplicated
CPT/HCPCS: 99213

== ENCOUNTER 2023-10-26 06:32 | Outpatient (REF) | payer MEDICARE, MEDICAID, SELFPAY | END 2023-10-26 06:33 | disposition home or self-care (01) | LOC: HO.HOSX 06:32 | PROVIDERS: Visit Provider Physician Assistant | DX: Z13.89 Encounter for screening for other disorder (principal) ==

== ENCOUNTER 2024-02-02 17:04 | Inpatient (IN) | payer MEDICARE, MEDICAID, SELFPAY ==
--- NOTE | ~2024-02-02 | CT_ITS ---
EXAMINATION: CT ABDOMEN AND PELVIS WITH CONTRAST CLINICAL INFORMATION: Pain and distention COMPARISON: None available. TECHNIQUE: Multidetector volumetric images were obtained from the superior aspect of the liver through the pubic symphysis following administration 85 mL of Omnipaque 350 intravenous contrast. Sagittal and coronal reformatted images were obtained on the technologist's workstation. Oral contrast: No This CT examination was performed using dose optimization techniques as appropriate, variously including the following: *Automated exposure control *Adjustment of mA and/or kV according to patient size (this includes techniques or standardized protocols for targeted exams where dose is matched to indication/reason for exam; i.e. extremities or head) *Use of iterative reconstruction technique DLP: 533 mGy-cm FINDINGS: LUNG BASES: The visualized lung bases are unremarkable. LIVER, GALLBLADDER, AND BILIARY TREE: Suspect cirrhotic morphology. No discrete lesion. No biliary ductal dilatation. Hepatic and portal vessels patent. The gallbladder is unremarkable with no evidence of radiopaque gallstones, gallbladder wall thickening, or obvious pericholecystic inflammatory changes. PANCREAS: Unremarkable. SPLEEN: Unremarkable. ADRENAL GLANDS: Unremarkable. KIDNEYS AND URETERS: The kidneys are normal in size, shape, and attenuation. No hydronephrosis, hydroureter, or calculi seen. No perinephric stranding. BLADDER: Unremarkable. GASTROINTESTINAL TRACT: The small and large bowel are notable for mild thickening circumferentially of the sigmoid colon uncertain significance. This extends to the level the rectum. No small bowel pathology. The appendix is unremarkable. ABDOMINAL WALL: No significant hernia is appreciated. LYMPH NODES: Normal. VASCULAR: Unremarkable. PELVIC VISCERA: Unremarkable. OSSEOUS STRUCTURES: Changes of avascular crosses both femoral heads without subchondral collapse. CT/CT abdomen pelvis w IV con IMPRESSION: 1. Nonspecific mild thickening of the sigmoid colon and rectum. Correlate clinically for any symptoms of colitis. 2. Cirrhotic liver. 3. 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 Fleischner guidelines were followed.
--- NOTE | ~2024-02-02 | CT_ITS ---
EXAMINATION: CT HEAD WITHOUT CONTRAST CLINICAL INFORMATION: Encephalopathy COMPARISON: 07/27/2020 TECHNIQUE: Contiguous axial imaging was performed from the skull base to vertex without intravenous administration of contrast. This CT examination was performed using dose optimization techniques as appropriate, variously including the following: *Automated exposure control *Adjustment of mA and/or kV according to patient size (this includes techniques or standardized protocols for targeted exams where dose is matched to indication/reason for exam; i.e. extremities or head) *Use of iterative reconstruction technique DLP: 553 mGy-cm FINDINGS: Unenhanced examination demonstrates the cortical sulci and ventricular system to be appropriate in size and morphology for the patient's age. No focal area of abnormal attenuation within the brain parenchyma is appreciated. No mass effect, midline shift, or intracranial hemorrhage is seen. No abnormal extra-axial fluid collection is noted. The incidentally visualized portions of the orbits and paranasal sinuses appear unremarkable. CT/CT head/brain wo IV con IMPRESSION: Normal examination, no interval change
--- NOTE | ~2024-02-02 | XR_ITS ---
EXAMINATION: XR CHEST CLINICAL INFORMATION: Pneumonia COMPARISON: Chest x-ray July 26, 2023 TECHNIQUE: Frontal portable view of the chest was obtained. 1514 hours FINDINGS: No significant abnormality is noted involving the heart, lungs, mediastinum, bony thorax or soft tissues. XR/XR chest 1V IMPRESSION: Unremarkable examination.
--- NOTE | 2024-02-02 17:20 | ED.GENADULT ---
HPI - General Adult General Chief complaint: ETOH/Substance Use Stated complaint: abd pain vomiting Time Seen by Provider: 02/02/24 21:12 Source: patient Mode of arrival: ambulatory Limitations: no limitations History of Present Illness HPI narrative: Patient alcoholic drinks vodka almost every day comes here as been having chronic diarrhea and vomiting and abdominal pain feels her abdomen is distended no leg swelling no confusion patient just had a drink prior to arrival patient is looking for detox was sober for 5 years in 2014 patient does have history of alcohol withdrawal seizures in the past at this time patient denies any hallucination or delusions requesting to go for detox Related Data Previous Rx's ?Medication ?Instructions ?Recorded trazodone 50 mg tablet 50 mg PO BEDTIME PRN for insomnia 10/10/23 90 days #90 tabs lidocaine 4 % topical patch 1 patch topical DAILY PRN pain #30 10/11/23 (Aspercreme (lidocaine)) ea nabumetone 750 mg tablet 750 mg PO BID 5 days #10 tabs 10/11/23 clonidine HCl 0.1 mg tablet 0.1 mg PO BEDTIME PRN anxiety #30 11/08/23 tabs erythromycin 5 mg/gram (0.5 %) eye 1 appl ophthalmic (eye) DAILY 7 12/28/23 ointment days #3.5 grams valacyclovir 1 gram tablet 1,000 mg PO Q8H 5 days #15 tabs 12/28/23 sertraline 50 mg tablet 50 mg PO DAILY 90 days #90 tabs 01/11/24 alprazolam 1 mg tablet 1 mg PO TID PRN anxiety #86 tabs 01/28/24 Allergies Allergy/AdvReac Type Severity Reaction Status Date / Time No Known Allergies Allergy Verified 02/02/24 17:26 [No Known Allergies*] Review of Systems Review of Systems: Yes all other systems are reviewed and are negative PMF Past Medical History Medical History 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 Mother No problems noted. Family/Other Substance use disorder Maternal Grandmother Ovarian cancer Maternal Aunt Ovarian cancer Social History Social History Housing: House Alcohol intake: current Alcohol intake frequency: 3 or more drinks per day Alcohol type: hard liquor Patient Tobacco Use Status: Current everyday Tobacco user Tobacco use type: Cigarette Cigarettes Per Day: 15 Smoked in Last 30 Days: Yes e-Cigarette/Vaping Use: Never Used Second Hand Smoke Exposure: No Use of substances other than those prescribed or required for medical reasons: No Substance Use Type: Marijuana Advance Directives: No Advance Directives Information Provided: No Patient : No service: No Current occupational status: unemployed Cognitive needs: No Hearing needs: No Vision needs: No Physical Exam ED Vital Signs: Vital Signs - 24 hr 02/02/24 17:22 02/02/24 20:38 02/02/24 22:23 Temperature 98 F 97.8 F 97.7 F Pulse Rate 92 86 87 Respiratory Rate 16 18 18 Blood Pressure 108/75 116/81 120/80 Pulse Oximetry 99 98 97 Oxygen Delivery Method Room Air Room Air Room Air 02/03/24 00:00 Temperature 98.1 F Pulse Rate 88 Respiratory Rate 20 Blood Pressure 115/85 Pulse Oximetry 97 Oxygen Delivery Method Room Air BMI result Body Mass Index 22.3 Appearance: Alert. Oriented X3. No acute distress. etoh+ Eyes: No pallor or icterus ENT: Pharynx normal. Oral Mucosa moist Neck: Normal inspection. Neck supple. CVS: Normal heart rate and rhythm. Pulses normal. Respiratory: No respiratory distress. Equal air entry bilateral, no wheezing/rales/rhonchi Abdomen: Soft and nontender. Gaseous distention Bowel sounds are present, no mass palpable, no CVA tenderness Skin: Skin warm and dry. Normal skin color. Normal skin turgor. Extremities: No lower extremity edema. No calf tenderness Neuro: Oriented X 3. No motor deficit. No sensory deficit.No cerebellar signs , cranial nerves II-XII intact Course Course Course Narrative: RME:?48 yo female hx of etoh use disorder, HTN, DM here for eval of abdominal pain, nausea and vomiting, stating my stomach is a rock . endorses loose stool with intermittent bright red blood. last bm this morning. she states Dr. alfaro called her today and told her my lab work is horrible . she does not recall when she had her labs drawn or what the results were. last etoh drink 30 minutes ago. admits to hx of withdrawal seizures. she states she is looking for detox. intoxicated. abd distended, firm, diffusely tender. labs, serology, imaging ordered. Full HPI, ROS and PE to be performed by the primary ED provider. Medications Administered Generic Name Dose Route Start Last Admin Trade Name Freq PRN Reason Stop Dose Admin Dextrose/Sodium Chloride 1,000 mls @ 125 mls/hr 02/03/24 01:45 02/03/24 02:03 D5ns IVCONT 125 mls/hr .Q8H KAITY Administration Thiamine HCl 100 mg/ Sodium 101 mls @ 202 mls/hr 02/03/24 01:40 02/03/24 02:31 Chloride IV 02/08/24 01:39 Infused DAILY KAITY Infusion Phenobarbital Sodium 162.5 mg 02/03/24 02:00 02/03/24 02:04 Phenobarbital Sodium 130 Mg/Ml Vial Im Q3hx2 IM 02/03/24 05:01 162.5 mg Q3H KAITY Administration Protocol Discontinued Medications Generic Name Dose Route Start Last Admin Trade Name Freq PRN Reason Stop Dose Admin Famotidine 20 mg 02/02/24 21:14 02/02/24 21:35 Famotidine/Pf 20 Mg/2 Ml Vial IVPUSH 02/02/24 21:15 20 mg ONCE ONE Administration Sodium Chloride 1,000 mls @ 999 mls/hr 02/02/24 21:14 02/02/24 23:29 Ns IV 02/02/24 22:14 Infused .Q1H1M ONE Infusion Iohexol 100 ml 02/02/24 21:01 02/02/24 21:06 Iohexol 350 Mg/Ml 100 Ml Infus..Btl IV 02/02/24 21:02 85 ml ONCE ONE Administration Lorazepam 2 mg 02/02/24 21:14 02/02/24 21:35 Lorazepam 2 Mg/Ml Vial IVPUSH 02/02/24 21:15 2 mg ONCE ONE Administration Ondansetron HCl 4 mg 02/02/24 21:14 02/02/24 21:35 Ondansetron Hcl 4 Mg/2 Ml Vial IVPUSH 02/02/24 21:15 4 mg ONCE ONE Administration Phenobarbital Sodium 215.8 mg 02/02/24 23:00 02/02/24 23:26 Phenobarbital Sodium 130 Mg/Ml Im Once IM 02/02/24 23:01 215.8 mg ONCE ONE Administration Protocol Medical Decision Making Medical Decision Making [facility] Narrative: Patient requesting for alcohol withdrawal as inpatient with history of alcohol withdrawal seizure will start on phenobarb protocol CT scan negative for significant ascites Differential Diagnosis Differential Diagnoses: The differential diagnosis associated with the presentation includes Alcoholic cirrhosis/ascites/constipation/alcohol withdrawal Consult Healthcare Provider Management of the patient was discussed with: Hospitalist Lab Data [facility] Lab Attestation statement: I reviewed the patient's lab results. 02/02/24 17:46 02/02/24 17:46 Labs: Lab Results 02/02/24 02/02/24 02/02/24 Range/Units 17:45 17:46 21:34 WBC 8.9 (4.8-10.8) X10*3/uL RBC 3.94 L (4.20-5.50) X10*6/uL Hgb 14.1 (12.0-16.0) g/dl Hct 41.3 (37.0-47.0) % MCV 104.8 H (80.0-98.0) fL MCH 35.8 H (27.0-33.0) pg MCHC 34.1 (31.0-35.0) g/dl RDW 14.4 (11.0-16.0) % Plt Count 186 (160-400) X10*3/uL MPV 12.1 (9.4-12.3) fL Immature Gran % (Auto) 0.8 H (0.0-0.4) % Neut % (Auto) 54.8 (45-73) % Lymph % (Auto) 33.8 (20-40) % [place] % (Auto) 6.6 (2-11) % Eos % (Auto) 3.1 (0-4) % Baso % (Auto) 0.9 (0-2) % Lymph # (Auto) 3.0 (1.2-4.9) X10*3/uL [place] # (Auto) 0.6 (0.1-1.2) X10*3/uL Eos # (Auto) 0.3 (0.0-0.4) X10*3/uL Baso # (Auto) 0.1 (0.0-0.2) X10*3/uL Abs Immat Gran (auto) 0.07 H (0.00-0.03) X10*3/uL Absolute Neuts (auto) 4.9 (2.0-8.3) x10*3/uL Absolute Nucleated RBC 0.000 (0.0-0.012) X10*3/uL Nucleated RBC % (auto) 0.0 (0.0-0.2) /100WBC PT 13.0 (11.1-13.3) SEC INR 1.1 (0.9-1.1) APTT 34.8 (26.0-36.8) SEC Sodium 142 (135-145) mmol/L Potassium 3.8 (3.3-5.1) mmol/L Chloride 106 (96-108) mmol/L Carbon Dioxide 28 (22-29) mmol/L Anion Gap 12 (12-20) BUN 6 L (9-16) mg/dL Creatinine 0.69 (0.5-1.4) mg/dL Estim Creat Clear Calc 84.2 Estimated GFR > 60 Random Glucose 119 H (60-115) mg/dL Calcium 9.6 D (8.4-10.2) mg/dL Magnesium 2.0 (1.6-2.6) mg/dL Total Bilirubin 0.3 (0.0-1.0) mg/dL AST 139 H (5-31) U/L ALT 68 H (0-31) U/L Alkaline Phosphatase 192 H (39-117) U/L Total Protein 8.3 H (6.5-8.0) g/dL Albumin 4.2 (3.5-5.0) g/dL Lipase 32 (8-78) U/L Vitamin B12 807 (200-900) pg/mL Folate 7.3 (> or = 4.0) ng/mL Beta HCG, Quant < 2 mIU/mL Ethyl Alcohol 144 mg/dL Influenza Type A (PCR) NEGATIVE (Negative) Influenza Type B (PCR) NEGATIVE (Negative) RSV RNA Qual (PCR) NEGATIVE (Negative) SARS-CoV-2 RNA (RT-PCR) NEGATIVE (Negative) Independent Interpretation I performed an independent interpretation of an: CT Scan Radiology Impression Discussion of test interpretation with radiology: I have reviewed the radiologist's reading. Radiologist Impression: CT/CT abdomen pelvis w IV con IMPRESSION: 1. Nonspecific mild thickening of the sigmoid colon and rectum. Correlate clinically for any symptoms of colitis. 2. Cirrhotic liver. 3. 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 Fleischner guidelines were followed. Discharge Plan Discharge Clinical Impression: Alcoholic cirrhosis, Alcohol withdrawal syndrome Patient Disposition: Admitted As Inpatient
[2024-02-02 17:22] VITALS: BP 108/75; PULSE 92; RESP 16; TEMP 36.6; O2SAT 99; BMI 22.3
[2024-02-02 17:52] LABS: MANUAL DIFF FLAG NO
[2024-02-02 18:08] LABS: Alanine Aminotransferase 68 U/L (0-31); Albumin Level 4.2 g/dL (3.5-5.0); Alkaline Phosphatase 192 U/L (39-117); Anion Gap 12 (12-20); Aspartate Amino Transferase 139 U/L (5-31); Bilirubin Total 0.3 mg/dL (0.0-1.0); Blood Urea Nitrogen 6 mg/dL (9-16); Calcium 9.6 mg/dL (8.4-10.2); Carbon Dioxide 28 mmol/L (22-29); Chloride 106 mmol/L (96-108); Creatinine Clr Calc Pharmacy 84.2; Estimated Glomerular Filt Rate > 60; Ethanol 144 mg/dL; Glucose Random 119 mg/dL (60-115); Lipase 32 U/L (8-78); Potassium 3.8 mmol/L (3.3-5.1); Sodium 142 mmol/L (135-145); Total Protein 8.3 g/dL (6.5-8.0)
[2024-02-02 18:11] LABS: Basophils Absolute Auto 0.1 X10*3/uL (0.0-0.2); Basophils Percent Auto 0.9 % (0-2); Eosinophils Absolute Auto 0.3 X10*3/uL (0.0-0.4); Eosinophils Percent Auto 3.1 % (0-4); Hematocrit 41.3 % (37.0-47.0); Hemoglobin 14.1 g/dl (12.0-16.0); Imm Gran Abs Auto 0.07 X10*3/uL (0.00-0.03); Imm Gran Pct Auto 0.8 % (0.0-0.4); Lymphocytes Percent Auto 33.8 % (20-40); Mean Corpuscular HGB Conc 34.1 g/dl (31.0-35.0); Mean Corpuscular Hemoglobin 35.8 pg (27.0-33.0); Mean Corpuscular Volume 104.8 fL (80.0-98.0); Mean Platelet Volume 12.1 fL (9.4-12.3); Monocytes Absolute Auto 0.6 X10*3/uL (0.1-1.2); Monocytes Percent Auto 6.6 % (2-11); Neutrophils Absolute Auto 4.9 x10*3/uL (2.0-8.3); Neutrophils Percent Auto 54.8 % (45-73); Platelet Count 186 X10*3/uL (160-400); Red Blood Count 3.94 X10*6/uL (4.20-5.50); Red Cell Distribution Width 14.4 % (11.0-16.0); White Blood Count 8.9 X10*3/uL (4.8-10.8)
[2024-02-02 18:29] LABS: Influenza A PCR NEGATIVE (Negative); Influenza B PCR NEGATIVE (Negative); Resp Syncy Virus RNA Qual PCR NEGATIVE (Negative); SARS COV2 PCR INHOUSE NEGATIVE (Negative)
[2024-02-02 18:44] LABS: Folate 7.3 ng/mL (> or = 4.0); Vitamin B12 807 pg/mL (200-900)
[2024-02-02 20:38] VITALS: BP 116/81; PULSE 86; RESP 18; TEMP 36.6; O2SAT 98
--- NOTE | 2024-02-02 21:00 | PC.NURSE ---
this rn assumed care of pt from waiting room @ 2040. 20g iv placed in L AC prior to CT scan.
[2024-02-02] MEDS: iohexoL 350 MG/ML 100 ML INFUS..BTL IV (21:06)
[2024-02-02] MEDS: 0.9 % Sodium Chloride 1,000 ML 999 ML IV (21:35)
[2024-02-02] MEDS: LORazepam 2 MG/ML VIAL IVPUSH (21:35)
[2024-02-02] MEDS: Famotidine/PF 20 MG/2 ML VIAL IVPUSH (21:35)
[2024-02-02] MEDS: ondansetron HCL 4 MG/2 ML VIAL IVPUSH (21:35)
[2024-02-02 21:49] LABS: INTERNATIONAL NORM RATIO 1.1 (0.9-1.1)
[2024-02-02 21:52] LABS: Partial Thromboplastin Time 34.8 SEC (26.0-36.8)
[2024-02-02 22:23] VITALS: BP 120/80; PULSE 87; RESP 18; TEMP 36.5; O2SAT 97
[2024-02-02] MEDS: PHENobarbitaL sodium 130 MG/ML IM ONCE 215.8 MG IM (23:26)
[2024-02-03] VITALS (8 sets, daily range): BP systolic 115–147; BP diastolic 69–95; PULSE 70–89; RESP 16–25; TEMP 36.3–37.3; O2SAT 95–99
--- OUTSIDE RECORDS SUMMARY | 2024-02-03 01:49 | XMS_ITS | Continuity of Care Document ---
Author Organization [facility] ter Address [address] [place] [id number]- Care Team Providers Care Plate Glass Installer Name Role Phone Not on Staff, PCP Primary Care Physician Unavail able Encounter [facility] Date(s): 10/16/23 - 10/16/[address] [address]- Encounter Diagnosis Fall(Final) - 10/16/23 Trauma(Final) - 10/16/23 Alcohol intoxication(Final) - 10/16/23 Discharge Disposition: A-D/C Home Attending Physician: Saida Brownlee MD Admitting Physician: Saida Brownlee MD Referring Physician: Not on Staff, Referring MD Results Radiology Reports * Exam Date Time Procedure Performing Provider Status 10/16/23 3:15 PM Pelvis 1 or 2 Views Saranya Kya; Auth (Verified) Notes: (Pelvis 1 or 2 Views) Reason For Exam: with Pain;Trauma RESULT: Pelvis 1 or 2 Views Pelvis 1 or 2 Views Reason: Trauma; with Pain; Clinical Question(s): Fracture COMPARISON: None. FINDINGS: There is no fracture or dislocation. Subchondral sclerosis within the right greater than left femoral heads is likely secondary to chronic AVN. The sacrum is obscured by a distended urinary bladder. 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 There is no acute osseous abnormality. WSN: [id number] Ordering Physician: Saida Gonzalez Dictated By: Nadia Grove MD Dictated Date/Time: 10/16/23 3:18 pm Reviewed By: Nadia Grove MD Signed By: Nadia Grove MD Signed Date/Time: 10/16/23 3:18 pm Transcribed By: KYLE Transcribed Date/Time: 10/16/23 3:17 pm * Exam Date Time Procedure Performing Provider Status 10/16/23 3:15 PM Chest Portable Saranya Beccae; Auth (Barbi ified) Notes: (Chest Portable) Reason For Exam: Pain;Other: RESULT: Chest Portable Examination: Portable chest performed on 10/16/2023. History: Pain. Trauma. Findings: A frontal view of the chest is submitted without comparison. The cardiac and mediastinal silhouettes are within normal limits. The lungs are clear. The osseous and soft tissue structures are unremarkable. IMPRESSION: There is no acute cardiopulmonary disease. WSN: [id number] Ordering Physician: Saida Gonzalez Dictated By: Nadia Grove MD Dictated Date/Time: 10/16/23 3:16 pm Reviewed By: Nadia Grove MD Signed By: Nadia Grove MD Signed Date/Time: 10/16/23 3:16 pm Transcribed By: KYLE Transcribed Date/Time: 10/16/23 3:16 pm * Exam Date Time Procedure Performing Provider Status 10/16/23 3:[address] Abdomen and Pelvi s W/O Contrast Jo Tejeda; Safia (Verified) Notes: (CT Abdomen and Pelvis W/O Contrast) Reason For Exam: Trauma RESULT: CT Abdomen and Pelvis W/O Contrast CT Chest W/O Contrast, CT Abdomen and Pelvis W/O Contrast INDICATION: Reason: Trauma following a fall downstairs; Clinical Question(s): Mediastinal Hemorrhage TECHNIQUE: Helical CT scan of the chest, abdomen, and pelvis without IV contrast, formatted in 3 planes. This study was performed without oral contrast. Weight-based protocol was performed using automatic exposure control. COMPARISON: This examination was performed emergently using a temporary medical record and no priorimaging or medical history was available for review at the time of this interpretation. FINDINGS: Grading Machine Operator view findings, lines and tubes: None. Trachea and airways: Patent without evidence of tracheal or endobronchial lesion. Lungs and pleura: Clear lungs. No effusion or pneumothorax. Mediastinum and geremias: No mass or hematoma. No mediastinal or hilar lymphadenopathy. No esophageal abnormality. Heart: Heart is normal in size. No pericardial effusion. Aorta: No aortic aneurysm. Pulmonary arteries: Normal caliber. Chest wall soft tissues: No acute abnormality. Diaphragm: Intact. Liver: Diffuse low-attenuation throughout the liver parenchyma consistent with hepatic steatosis. Irregular lobulation of the left hepatic lobe which is suboptimally assessed due to lack of IV contrast. Gallbladder: No CT evidence of gallbladder pathology. Bile ducts: No biliary ductal dilation. Spleen: Normal in size. Pancreas: No suspicious lesion or ductal dilatation. Adrenal glands: No nodule. Kidneys and ureters: No hydronephrosis, stone, or suspicious lesion. Nonspecific perinephric fat stranding bilaterally. Bladder: No wall thickening or surrounding stranding. Reproductive organs: Anteverted uterus. No adnexal mass. Tampon in the vaginal canal. Stomach, small bowel, and large bowel: Normal caliber stomach and bowel loops. No surrounding inflammatory changes. Appendix: No evidence of acute appendicitis. Peritoneum and retroperitoneum: No ascites or pneumoperitoneum. No omental or mesenteric lesions. Lymph nodes: No enlarged lymph nodes. Blood vessels: Minimal vascular calcifications but no aneurysm. Abdominal and pelvic wall soft tissues: No acute abnormality. Bones: Pelvic ring is intact. Both proximal femoral necks are intact, though there is bilateral femoral head AVN. Chronic appearing deformity of the right L3 transverse process (135/201). No acute vertebral body fracture. Sternum is intact. Subtle contour deformity of the anterior right third and fourth ribs. Otherwise no displaced acute rib fractures. Subacute nondisplaced fracture of the anterior left sixth rib IMPRESSION: 1. Subacute undisplaced fracture of the anterior left sixth rib. 2. Contour deformity of the anterolateral right third and fourth ribs is age indeterminate and could be chronic. 3. Chronic appearing deformity of the right L3 transverse process. 4. No other definite focus of traumatic injury identified in the chest abdomen or pelvis. 5. Bilateral femoral head avascular necrosis. 6. Contour irregularity of the liver which is suboptimally assessed due to lack of IV contrast and is of unclear etiology. Correlation with any recent prior CTs is recommended. 7. Hepatic steatosis. WSN: [id number] Ordering Physician: Saida Gonzalez Dictated By: Tacho Juarez MD Dictated Date/Time: 10/16/23 3:25 pm Reviewed By: Tacho Juarez MD Signed By: Tacho Juarez MD Signed Date/Time: 10/16/23 3:25 pm Transcribed By: KYLE Transcribed Date/Time: 10/16/23 3:10 pm * Exam Date Time Procedure Performing Provider Status 10/16/23 3:[address] Chest W/O Contrast Jo Tejeda ; Auth (Verified) Notes: (CT Chest W/O Contrast) Reason For Exam: Trauma RESULT: CT Chest W/O Contrast CT Chest W/O Contrast, CT Abdomen and Pelvis W/O Contrast INDICATION: Reason: Trauma following a fall downstairs; Clinical Question(s): Mediastinal Hemorrhage TECHNIQUE: Helical CT scan of the chest, abdomen, and pelvis without IV contrast, formatted in 3 planes. This study was performed without oral contrast. Weight-based protocol was performed using automatic exposure control. COMPARISON: This examination was performed emergently using a temporary medical record and no priorimaging or medical history was available for review at the time of this interpretation. FINDINGS: Grading Machine Operator view findings, lines and tubes: None. Trachea and airways: Patent without evidence of tracheal or endobronchial lesion. Lungs and pleura: Clear lungs. No effusion or pneumothorax. Mediastinum and geremias: No mass or hematoma. No mediastinal or hilar lymphadenopathy. No esophageal abnormality. Heart: Heart is normal in size. No pericardial effusion. Aorta: No aortic aneurysm. Pulmonary arteries: Normal caliber. Chest wall soft tissues: No acute abnormality. Diaphragm: Intact. Liver: Diffuse low-attenuation throughout the liver parenchyma consistent with hepatic steatosis. Irregular lobulation of the left hepatic lobe which is suboptimally assessed due to lack of IV contrast. Gallbladder: No CT evidence of gallbladder pathology. Bile ducts: No biliary ductal dilation. Spleen: Normal in size. Pancreas: No suspicious lesion or ductal dilatation. Adrenal glands: No nodule. Kidneys and ureters: No hydronephrosis, stone, or suspicious lesion. Nonspecific perinephric fat stranding bilaterally. Bladder: No wall thickening or surrounding stranding. Reproductive organs: Anteverted uterus. No adnexal mass. Tampon in the vaginal canal. Stomach, small bowel, and large bowel: Normal caliber stomach and bowel loops. No surrounding inflammatory changes. Appendix: No evidence of acute appendicitis. Peritoneum and retroperitoneum: No ascites or pneumoperitoneum. No omental or mesenteric lesions. Lymph nodes: No enlarged lymph nodes. Blood vessels: Minimal vascular calcifications but no aneurysm. Abdominal and pelvic wall soft tissues: No acute abnormality. Bones: Pelvic ring is intact. Both proximal femoral necks are intact, though there is bilateral femoral head AVN. Chronic appearing deformity of the right L3 transverse process (135/201). No acute vertebral body fracture. Sternum is intact. Subtle contour deformity of the anterior right third and fourth ribs. Otherwise no displaced acute rib fractures. Subacute nondisplaced fracture of the anterior left sixth rib IMPRESSION: 1. Subacute undisplaced fracture of the anterior left sixth rib. 2. Contour deformity of the anterolateral right third and fourth ribs is age indeterminate and could be chronic. 3. Chronic appearing deformity of the right L3 transverse process. 4. No other definite focus of traumatic injury identified in the chest abdomen or pelvis. 5. Bilateral femoral head avascular necrosis. 6. Contour irregularity of the liver which is suboptimally assessed due to lack of IV contrast and is of unclear etiology. Correlation with any recent prior CTs is recommended. 7. Hepatic steatosis. WSN: [id number] Ordering Physician: Saida Gonzalez Dictated By: Tacho Juarez MD Dictated Date/Time: 10/16/23 3:25 pm Reviewed By: Tacho Juarez MD Signed By: Tacho Juarez MD Signed Date/Time: 10/16/23 3:25 pm Transcribed By: KYLE Transcribed Date/Time: 10/16/23 3:10 pm * Exam Date Time Procedure Performing Provider Status 10/16/23 3:[address] Cervical Spine W/O Contrast Jo Tejeda; Safia (Verified) Notes: (CT Cervical Spine W/O Contrast) Reason For Exam: Neck trauma, dangerous injury mechanism;Other: RESULT: CT Cervical Spine W/O Contrast CT Head/Brain W/O Contrast, CT Cervical Spine W/O Contrast INDICATION: Head trauma, mod-severe; Clinical Question(s): Hematoma TECHNIQUE: Noncontrast head CT using axial technique was reconstructed in axial and coronal planes.Noncontrast spiral CT through the cervical spine was formatted in 3 planes. Automatic tube modulation was used for the cervical spine and iterative dose reconstruction was used for both the head and cervical spine to optimize scan parameters and image quality. COMPARISON: This examination was performed emergently using a temporary medical record and no priorimaging or medical history was available for review at the time of this interpretation. FINDINGS: Grading Machine Operator View Findings, Lines and Tubes: None. BRAIN AND EXTRA-AXIAL SPACES: No parenchymal hemorrhage, midline shift, or mass effect. Sam-white matter differentiation is wellpreserved. No acute infarct. Negative insular ribbon and hyperdense vessel signs. Ventricles, sulci, and basilar cisterns are normal. No white matter lesions. No subarachnoid hemorrhage. No subdural or epidural collection. CALVARIUM, SKULL BASE, AND SOFT TISSUES: No fractures or suspicious bony lesions. Mild mucosal thickening of the ethmoid air cells, right sphenoid sinus, left maxillary sinus and right frontal sinus. Other visualized paranasal sinuses and mastoid air cells are clear. Visualized orbits and globes are intact. The extracranial soft tissues are unremarkable. CERVICAL SPINE: No fracture. No acute osseous abnormalities. Normal alignment. No locked or perched facet. Intervertebral disc spaces and vertebral body heightsare preserved. OTHER BONES: No acute abnormality. CERVICAL SOFT TISSUES AND LUNG APICES: Normal soft tissues. Visualized lung apices are clear. Normal thyroid. IMPRESSION: No acute abnormality of the head or cervical spine. I have personally reviewed the images and I agree with this report. WSN: [id number] Ordering Physician: Saida Gonzalez Dictated By: Judith Smith DO Dictated Date/Time: 10/16/23 3:30 pm Reviewed By: Tacho Juarez MD Signed By: Tacho Juarez MD Signed Date/Time: 10/16/23 3:35 pm Transcribed By: KYLE Transcribed Date/Time: 10/16/23 3:11 pm * Exam Date Time Procedure Performing Provider Status 10/16/23 3:[address] Head/Brain W/O Contrast Kailey Tejeda; Auth (Verified) Notes: (CT Head/Brain W/O Contrast) Reason For Exam: Head trauma, mod-severe;Other: RESULT: CT Head/Brain W/O Contrast CT Head/Brain W/O Contrast, CT Cervical Spine W/O Contrast INDICATION: Head trauma, mod-severe; Clinical Question(s): Hematoma TECHNIQUE: Noncontrast head CT using axial technique was reconstructed in axial and coronal planes.Noncontrast spiral CT through the cervical spine was formatted in 3 planes. Automatic tube modulation was used for the cervical spine and iterative dose reconstruction was used for both the head and cervical spine to optimize scan parameters and image quality. COMPARISON: This examination was performed emergently using a temporary medical record and no priorimaging or medical history was available for review at the time of this interpretation. FINDINGS: Grading Machine Operator View Findings, Lines and Tubes: None. BRAIN AND EXTRA-AXIAL SPACES: No parenchymal hemorrhage, midline shift, or mass effect. Sam-white matter differentiation is wellpreserved. No acute infarct. Negative insular ribbon and hyperdense vessel signs. Ventricles, sulci, and basilar cisterns are normal. No white matter lesions. No subarachnoid hemorrhage. No subdural or epidural collection. CALVARIUM, SKULL BASE, AND SOFT TISSUES: No fractures or suspicious bony lesions. Mild mucosal thickening of the ethmoid air cells, right sphenoid sinus, left maxillary sinus and right frontal sinus. Other visualized paranasal sinuses and mastoid air cells are clear. Visualized orbits and globes are intact. The extracranial soft tissues are unremarkable. CERVICAL SPINE: No fracture. No acute osseous abnormalities. Normal alignment. No locked or perched facet. Intervertebral disc spaces and vertebral body heightsare preserved. OTHER BONES: No acute abnormality. CERVICAL SOFT TISSUES AND LUNG APICES: Normal soft tissues. Visualized lung apices are clear. Normal thyroid. IMPRESSION: No acute abnormality of the head or cervical spine. I have personally reviewed the images and I agree with this report. WSN: [id number] Ordering Physician: Saida Gonzalez Dictated By: Judith Smith DO Dictated Date/Time: 10/16/23 3:30 pm Reviewed By: Tacho Juarez MD Signed By: Tacho Juarez MD Signed Date/Time: 10/16/23 3:35 pm Transcribed By: KYLE Transcribed Date/Time: 10/16/23 3:11 pm Vital Signs Most recent to oldest [Reference Range]: 1 Oxygen Saturation [94-100 %] 98 % (10/16/23 2:50 PM) Pulse Rate [55-90 bpm] 96 bpm *H* (10/16/23 2:50 PM) Blood Pressure [90-138/55-84 mm Hg] 110/ 63mm Hg (10/16/23 2:50 PM) Respiratory Rate [16-30 br/min] 22 br/mi n (10/16/23 2:50 PM) Temperature [96.8-100.4 DegF] 97.2 DegF (10/16/23 2:50 PM) Mode of Delivery (Oxygen) Room air (10/16/23 2:50 PM) Blood pressure sites Arm, left (10/16/23 2:50 PM) Temperature Route Oral (10/16/23 2:50 PM) Admission evaluation note * Saida Gonzalez MD: MODIFY, MODIFY, MODIFY, PERFORM, MODIFY, MODIFY, MODIFY, MODIFY, MODIFY, MODIFY, MODIFY, MODIFY, MODIFY, MODIFY, SIGN, VERIFY Event Display: Admission Note Authored Date: [id number] Patient: ANTOLIN MARTINEZ Age: 48 years Sex: Female : 1975 Associated Diagnoses: None Author: Saida Gonzalez MD Trauma Activation Category: Category 2. Trauma History 48yoF cat2 trauma s/p fall down 8 steps with +LOC, unknown downtime, +EtOH, GCS 14. Per EMS, patient fell down approximately 8 steps and was found unconscious by her family at the bottom of the stairs, unknown down time. Patient reports she remembers falling. She was dragged into the living room byher family. Best GCS for EMS is 14 (E4 V4 for confusion M6). She initially complained of not being able to feel her feet but this is now improved, she also complained of lower back and hip pain whichhas persisted. Patient is not on blood thinners per family. She does report drinking 8 x nips todayand per family took some pills (unclear what the pills were). On arrival she complains of pain allover . Last vitals BP 144/80 HR 99 SpO2 96% on RA GCS 14. Upon arrival, primary survey was completed and is as follows: airway patent, breath sounds present equal bilaterally, BP 110/68, pupils 3mm and reactive, GCS 14 (E4 V4 for confusion M6). Secondary survey was completed and is documented below. Archbold collar was placed for c-spine precaution. IV fluids were administered. Following CXR, the patient was taken to CT for further workup. Past Medical History Cirrhosis with prior ascites and paracentesis Alcoholism Past Surgical History None Medications Trazodone Allergies NKDA Family History N/A Social History EtOH abuse Smoking - 1ppd Review of Systems A 14-point review of systems was negative except as documented above Past Medical History Allergies No active allergies have been recorded. Social History Social History No qualifying data available. . Physical Examination Vital Signs: T 97.2, BP 101/73, HR 101, RR 22, SpO2 97% on RA General: confused, in mild distress, inappropriate affect, alert, awake. smells of alcohol Head: normocephalic, atraumatic, no hematomas, no abrasions, no wounds, no deformities Face: no ecchymosis, no abrasions, no wounds Eyes: pupils are 3mm, equal, round, and reactive; extraocular movement intact Ears: no hemotympanum, no blood in external auditory canal, no abrasions, no gurrola's sign Nose: no deformity; dried blood in right nare Mandible: no deformity, no malocclusion Neck: cervical-collar in place, no hematoma, no ecchymosis, no wounds, trachea midline Chest: symmetric, no deformity, sternum, chest wall, and clavicles are nontender to palpation, no crepitus appreciated Heart: regular rate and rhythm Lungs: clear to auscultation bilaterally Abdomen: soft, nondistended, nontender, no wounds, no ecchymosis, no hematoma Pelvis: stable, nontender Back: no ecchymosis, no abrasions, no hematoma, no wounds Cervical spine: no midline deformities or stepoffs, cervical-collar in place; paraspinal cervical spine tenderness, no midline tenderness Thoracic spine: no midline deformities or stepoffs, no tenderness Lumbar spine: no midline deformities or stepoffs; midline lumbar spine tenderness Extremities: no long bone deformities, no wounds, no ecchymosis, no hematomas, full active range ofmotion; old abrasion to left elbow, no active bleeding; abrasion to right lateral malleolus Neurologic: GCS14 (E4 V4 for confusion M6); 5/5 strength and sensation to light touch intact in thebilateral upper and lower extremities Vascular: palpable dorsalis pedis and radial pulses bilaterally Results Review 7 day results Labs & Documents Laboratory : LABORATORY 10/16/2023 15:53 EST INR 1.1 Protime (PT) 11.6 seconds H APTT 26.2 seconds 10/16/2023 15:00 EST Influenza A PCR NEGATIVE Influenza B PCR NEGATIVE RSV PCR NEGATIVE COVID-19 PCR Specimen Source NASAL COVID-19 PCR Result NEGATIVE 10/16/2023 14:53 EST WBC 6.7 k/mm3 L (Modified) RBC 4.18 m/mm3 L (Modified) Hgb 14.9 Gm/dL H (Modified) Hct 44.6 % (Modified) MCV 106.7 femtoliters H (Modified) MCH 35.6 pg H (Modified) MCHC 33.4 g/dL (Modified) Platelet Count 198 k/mm3 L (Modified) RDW-SD 51.1 femtoliters H MPV 11.1 femtoliters (Modified) Nucleated RBC (Automated) 0.0 #/100 WBC'S Abs. NRBC 0.0 k/mm3 Abs. Neut 2.8 k/mm3 (Modified) Abs. Lymph 3.2 k/mm3 H (Modified) Abs. [place] 0.5 k/mm3 (Modified) Abs. Eo 0.2 k/mm3 (Modified) Abs. Baso 0.1 k/mm3 (Modified) Neut % 41.8 % L (Modified) Lymph % 47.2 % H (Modified) [place] % 7.2 % (Modified) Eos % 2.5 % (Modified) Baso % 0.9 % (Modified) Imm Gran 0.4 % Abs. Imm Gran 0.0 k/mm3 Sodium 146 mmol/L H Potassium 5.1 mmol/L Chloride 107 mmol/L Bicarbonate Level 24 mmol/L Anion Gap 15 Glucose Level 90 mg/dL BUN 11 mg/dL Creatinine-Blood 0.7 mg/dL Estimated GFR Creatinine 66 ML/MIN/1.73 M2 Calcium 9.6 mg/dL Amylase 27 units/L L Lactate 1.7 mmol/L Ethanol, Serum or Plasma 298 mg/dL ABN Hold Red Top SPECIMEN DISCARDED AFTER 1 WEEK Imaging : RADIOLOGY 10/16/2023 15:15 EST Chest Portable Chest Portable Pelvis 1 or 2 Views Pelvis 1 or 2 Views 10/16/2023 15:[address] Chest W/O Contrast CT Chest W/O Contrast CT Abdomen and Pelvis W/O Contrast RESULT: CT Abdomen and Pelvis W/O Contrast 10/16/2023 15:[address] Head/Brain W/O Contrast CT Head/Brain W/O Contrast (In Progress) CT Head/Brain W/O Contrast, CT Cervical Spine W/O Contrast INDICATION: Head trauma, mod-severe; Clinical Question(s): Hematoma TECHNIQUE: Noncontrast head CT using axial technique was reconstructed in axial and coronal planes.Noncontrast spiral CT through the cervical spine was formatted in 3 planes. Automatic tube modulation was used for the cervical spine and iterative dose reconstruction was used for both the head and cervical spine to optimize scan parameters and image quality. COMPARISON: This examination was performed emergently using a temporary medical record and no priorimaging or medical history was available for review at the time of this interpretation. FINDINGS: Grading Machine Operator View Findings, Lines and Tubes: None. BRAIN AND EXTRA-AXIAL SPACES: No parenchymal hemorrhage, midline shift, or mass effect. Sam-white matter differentiation is wellpreserved. No acute infarct. Negative insular ribbon and hyperdense vessel signs. Ventricles, sulci, and basilar cisterns are normal. No white matter lesions. No subarachnoid hemorrhage. No subdural or epidural collection. CALVARIUM, SKULL BASE, AND SOFT TISSUES: No fractures or suspicious bony lesions. Mild mucosal thickening of the ethmoid air cells, right sphenoid sinus, left maxillary sinus and right frontal sinus. Other visualized paranasal sinuses and mastoid air cells are clear. Visualized orbits and globes are intact. The extracranial soft tissues are unremarkable. CERVICAL SPINE: No fracture. No acute osseous abnormalities. Normal alignment. No locked or perched facet. Intervertebral disc spaces and vertebral body heightsare preserved. OTHER BONES: No acute abnormality. CERVICAL SOFT TISSUES AND LUNG APICES: Normal soft tissues. Visualized lung apices are clear. Normal thyroid. IMPRESSION: No acute abnormality of the head or cervical spine. I have personally reviewed the images and I agree with this report. WSN: [id number] Ordering Physician: Saida Gonzalez Signature Line Dictated By: Judith Smith DO Dictated Date/Time: 10/16/23 3:30 pm Reviewed By: Tacho Juarez MD Signed By: Tacho Juarez MD Signed Date/Time: 10/16/23 3:[address] Chest W/O Contrast, CT Abdomen and Pelvis W/O Contrast INDICATION: Reason: Trauma following a fall downstairs; Clinical Question(s): Mediastinal Hemorrhage TECHNIQUE: Helical CT scan of the chest, abdomen, and pelvis without IV contrast, formatted in 3 planes. This study was performed without oral contrast. Weight-based protocol was performed using automatic exposure control. COMPARISON: This examination was performed emergently using a temporary medical record and no priorimaging or medical history was available for review at the time of this interpretation. FINDINGS: Grading Machine Operator view findings, lines and tubes: None. Trachea and airways: Patent without evidence of tracheal or endobronchial lesion. Lungs and pleura: Clear lungs. No effusion or pneumothorax. Mediastinum and geremias: No mass or hematoma. No mediastinal or hilar lymphadenopathy. No esophageal abnormality. Heart: Heart is normal in size. No pericardial effusion. Aorta: No aortic aneurysm. Pulmonary arteries: Normal caliber. Chest wall soft tissues: No acute abnormality. Diaphragm: Intact. Liver: Diffuse low-attenuation throughout the liver parenchyma consistent with hepatic steatosis. Irregular lobulation of the left hepatic lobe which is suboptimally assessed due to lack of IV contrast. Gallbladder: No CT evidence of gallbladder pathology. Bile ducts: No biliary ductal dilation. Spleen: Normal in size. Pancreas: No suspicious lesion or ductal dilatation. Adrenal glands: No nodule. Kidneys and ureters: No hydronephrosis, stone, or suspicious lesion. Nonspecific perinephric fat stranding bilaterally. Bladder: No wall thickening or surrounding stranding. Reproductive organs: Anteverted uterus. No adnexal mass. Tampon in the vaginal canal. Stomach, small bowel, and large bowel: Normal caliber stomach and bowel loops. No surrounding inflammatory changes. Appendix: No evidence of acute appendicitis. Peritoneum and retroperitoneum: No ascites or pneumoperitoneum. No omental or mesenteric lesions. Lymph nodes: No enlarged lymph nodes. Blood vessels: Minimal vascular calcifications but no aneurysm. Abdominal and pelvic wall soft tissues: No acute abnormality. Bones: Pelvic ring is intact. Both proximal femoral necks are intact, though there is bilateral femoral head AVN. Chronic appearing deformity of the right L3 transverse process (135/201). No acute vertebral body fracture. Sternum is intact. Subtle contour deformity of the anterior right third and fourth ribs. Otherwise no displaced acute rib fractures. Subacute nondisplaced fracture of the anterior left sixth rib IMPRESSION: 1. Subacute undisplaced fracture of the anterior left sixth rib. 2. Contour deformity of the anterolateral right third and fourth ribs is age indeterminate and could be chronic. 3. Chronic appearing deformity of the right L3 transverse process. 4. No other definite focus of traumatic injury identified in the chest abdomen or pelvis. 5. Bilateral femoral head avascular necrosis. 6. Contour irregularity of the liver which is suboptimally assessed due to lack of IV contrast and is of unclear etiology. Correlation with any recent prior CTs is recommended. 7. Hepatic steatosis. WSN: [id number] Ordering Physician: Saida Gonzalez Signature Line Dictated By: Tacho Juarze MD Dictated Date/Time: 10/16/23 3:25 pm Reviewed By: Tacho Juarez MD Signed By: Tacho Juarez MD Signed Date/Time: 10/16/23 3:25 pm Examination: Portable chest performed on 10/16/2023. History: Pain. Trauma. Findings: A frontal view of the chest is submitted without comparison. The cardiac and mediastinal silhouettes are within normal limits. The lungs are clear. The osseous and soft tissue structures are unremarkable. IMPRESSION: There is no acute cardiopulmonary disease. WSN: [id number] Ordering Physician: Saida Gonzalez Signature Line Dictated By: Nadia Grove MD Dictated Date/Time: 10/16/23 3:16 pm Reviewed By: Nadia Grove MD Signed By: Nadia Grove MD Signed Date/Time: 10/16/23 3:16 pm Pelvis 1 or 2 Views Reason: Trauma; with Pain; Clinical Question(s): Fracture COMPARISON: None. FINDINGS: There is no fracture or dislocation. Subchondral sclerosis within the right greater than left femoral heads is likely secondary to chronic AVN. The sacrum is obscured by a distended urinary bladder. 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 There is no acute osseous abnormality. WSN: [id number] Ordering Physician: Saida Gonzalez Signature Line Dictated By: Nadia Grove MD Dictated Date/Time: 10/16/23 3:18 pm Reviewed By: Nadia Grove MD Signed By: Nadia Grove MD Signed Date/Time: 10/16/23 3:18 pm Procedure FAST Exam Normal - no fluid x 4 quadrants. Impression and Plan 48yoF cat2 trauma s/p fall down 8 stairs with LOS and unknown down time. +LOC, +EtOH, GCS 14 (E4 V5for confusion M6). Patient found to have an abrasion to the right lateral malleolus and evidence ofepistaxis that had resolved. Imaging did not reveal any acute injuries. EtOH level was 294 on arrival. Patient was observed in the ED for 3 hours, after which time she was found to be appropriate fordischarge and can be discharged home in the care of her . Acute Injuries Epistaxis Right lateral malleolus abrasion Incidental Findings Avascular necrosis of femoral heads bilaterally Subacute nondisplaced fracture of the anterior left 6th rib Chronic appearing right anterolateral 3rd/4th rib contour deformity Chronic appearing right L3 transverse process Hepatic steatosis Contour irregularity of the liver Interventions None Consultants None Plan Discharge from ED after being observed for 3 hours Given return precautions Discharged in the care of her Discussed with Dr. Mejía Patient Care team information Care Team Personnel Name: Not on Staff, PCP Position: [facility] Physician (General Medicine) Member Role: PCP Name: *[facility], Trauma Attending Position: [facility] ED Attendings Patient Name: *[facility], Trauma Resident Position: [facility] ED Medicine MD Name: Kylie Mann RN Position: [facility] ED RN W/OE and Tasks Member Role: Patient Care Provider
[2024-02-03] MEDS: Thiamine HCL 100 MG in 0.9 % Sodium Chloride 100 ML 202 MG IV (02:03)
[2024-02-03] MEDS: Dextrose 5 % and 0.9 % NaCl 1,000 ML 125 ML IVCONT ×3 (02:03→19:16)
[2024-02-03] MEDS: PHENobarbitaL sodium 130 MG/ML VIAL IM Q3Hx2 162.5 MG IM ×2 (02:04→05:02)
[2024-02-03 02:20] LABS: HCG Quantitative < 2 mIU/mL
--- NOTE | 2024-02-03 05:15 | P.HPHOSP_ITS ---
History of Present Illness Date of Service: 02/03/24 Attending physician on admission: Asif Gonzáles Chief Complaint: Distended abdomen Adelita Ibarra is a 48 years old woman with PMHx significant for alcohol abuse and alcohol withdrawal seizures presents to the emergency department due to abdominal distention and seeking detox. HPI was very difficult to obtain directly from the patient as she is seems to be intoxicated in addition to that she received treatment with Ativan and phenobarbital prior to evaluation. According to ED triage note patient was stated that Dr. David call and said to come to the ED. she was complaining of abdominal distention associated with pain and bilious vomiting. She also said that her stools were black. Last drink was 30 minute before arriving to the emergency department (5:22 PM). According to ED provider the patient told him she drinks vodka almost every day and has chronic diarrhea. No hallucinations were reported. In the ED she was found to have stable vital signs. Blood workup showed no leukocytosis. Hemoglobin is 12.3. There is minimal thrombocytopenia. There are no significant electrolyte imbalances. LFTs are elevated sed bilirubin. Lipase is normal. test is negative. Folate and vitamin B12 are normal. Viral testing for COVID-19, RSV and influenza are negative. Abdominal pelvis CT scan showed nonspecific mild thickening of the sigmoid colon and rectum, correlate clinically for any symptoms of colitis, cirrhotic liver and bilateral avascular necrosis of the femoral heads without subchondral collapse. ED tx: Phenobarbital 162.5 mg IM, Ativan 2 mg IV, Pepcid 20 mg IV, Zofran 4 mg IV, NS 1 L bolus. Review of Systems 2 Review of Systems: All 12 systems were reviewed and normal except as noted in HPI. 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 Mother No problems noted. Family/Other Substance use disorder Maternal Grandmother Ovarian cancer Maternal Aunt Ovarian cancer Surgical History Hx of endoscopy History of colonoscopy Social History Housing: House Alcohol intake: current Alcohol intake frequency: 3 or more drinks per day Alcohol type: hard liquor Patient Tobacco Use Status: Tobacco use Unknown Tobacco use type: Cigarette Cigarettes Per Day: 15 Smoked in Last 30 Days: Yes e-Cigarette/Vaping Use: Never Used Second Hand Smoke Exposure: No Use of substances other than those prescribed or required for medical reasons: No Substance Use Type: Marijuana Advance Directives: No Advance Directives Information Provided: No Nutrition Risks: No Nutritional Risk Patient : No service: No Current occupational status: unemployed Cognitive needs: No Hearing needs: No Vision needs: No Meds Allergies Allergy/AdvReac Type Severity Reaction Status Date / Time No Known Allergies Allergy Verified 02/02/24 17:26 [No Known Allergies*] Active Medications: Current Medications Folic Acid (Folic Acid 1 Mg Tablet) 1 mg PO DAILY [facility] Dextrose/Sodium Chloride (D5ns) 1,000 mls @ 125 mls/hr IVCONT .Q8H [facility] Last Admin: 02/03/24 02:03 Dose: 125 mls/hr Thiamine HCl 100 mg/ Sodium (Chloride) 101 mls @ 202 mls/hr IV DAILY [facility] Stop: 02/08/24 01:39 Last Infusion: 02/03/24 02:31 Dose: Infused Multivitamins/Vitamin C (Multivitamin Tablet) 1 tab PO DAILY [facility] Ondansetron HCl (Ondansetron Hcl 4 Mg/2 Ml Vial) 4 mg IVPUSH Q6H PRN PRN Reason: Nausea and Vomiting Pantoprazole Sodium (Pantoprazole Sodium 40 Mg/10 Ml Vial) 40 mg IVPUSH Q12H [facility] Pharmacy Consult (Consult Rx Etoh Phenob Im/Po) 1 each MISCELLANE ONCE PRN; Protocol PRN Reason: Consult order Phenobarbital (Phenobarbital 15 Mg Tablet) 45 mg PO BID [facility]; Protocol Stop: 02/04/24 21:01 Phenobarbital (Phenobarbital 15 Mg Tablet) 15 mg PO BID [facility]; Protocol Stop: 02/06/24 21:01 Phenobarbital (Phenobarbital 15 Mg Tablet) 15 mg PO DAILY [facility]; Protocol Stop: 02/08/24 09:01 Sodium Chloride (0.9 % Sodium Chloride Flush 3 Ml Syringe) 3 ml IVFLUSH QSHIFT [facility] Physical Exam 2 Vital Signs and Narrative: Vital Signs: Last Vital Signs Temp 97.6 F 02/03/24 05:10 Pulse 76 02/03/24 05:10 Resp 24 H 02/03/24 05:10 BP 120/72 02/03/24 05:10 Pulse Ox 95 02/03/24 05:10 O2 Del Method Room Air 02/03/24 05:10 BMI result Body Mass Index 22.3 Constitutional - Sedated. Barely able to open her eyes. HEENT - Pupils equally round. Normal sclerae. Normal oral mucosa. Heart - RRR. No murmur. Lungs - Normal lung expansion, Normal respiratory effort, No respiratory distress, CTA bilaterally Abdomen - Distended. Increased bowel sounds. Generalized tenderness. No rebound or guarding. No fluid wave. Extremities - no calf tenderness bilaterally, no swelling Musculoskeletal - Normal inspection, normal ROM Skin - Warm/Dry Neurological - sedated. Results Labs 02/02/24 17:46 02/02/24 17:46 Labs: Laboratory Results - last 24 hr 02/02/24 02/02/24 02/02/24 17:45 17:46 21:34 MCV 104.8 H MCH 35.8 H MCHC 34.1 RDW 14.4 Plt Count 186 MPV 12.1 Immature Gran % (Auto) 0.8 H Neut % (Auto) 54.8 Lymph % (Auto) 33.8 [place] % (Auto) 6.6 Eos % (Auto) 3.1 Baso % (Auto) 0.9 Lymph # (Auto) 3.0 [place] # (Auto) 0.6 Eos # (Auto) 0.3 Baso # (Auto) 0.1 Abs Immat Gran (auto) 0.07 H Absolute Neuts (auto) 4.9 Absolute Nucleated RBC 0.000 Nucleated RBC % (auto) 0.0 PT 13.0 INR 1.1 APTT 34.8 Anion Gap 12 Estim Creat Clear Calc 84.2 Estimated GFR > 60 Random Glucose 119 H Calcium 9.6 D Magnesium 2.0 Total Bilirubin 0.3 AST 139 H ALT 68 H Alkaline Phosphatase 192 H Total Protein 8.3 H Albumin 4.2 Lipase 32 Vitamin B12 807 Folate 7.3 Beta HCG, Quant < 2 Ethyl Alcohol 144 Influenza Type A (PCR) NEGATIVE Influenza Type B (PCR) NEGATIVE RSV RNA Qual (PCR) NEGATIVE SARS-CoV-2 RNA (RT-PCR) NEGATIVE Imaging Radiologist's Impressions: Impressions Abdomen/Pelvis CT 02/02/24 21:06 IMPRESSION: 1. Nonspecific mild thickening of the sigmoid colon and rectum. Correlate clinically for any symptoms of colitis. 2. Cirrhotic liver. 3. 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 Fleischner guidelines were followed. Assessment and Plan (1) Alcoholic cirrhosis: Qualifiers: Ascites presence: without ascites Qualified Code(s): K70.30 - Alcoholic cirrhosis of liver without ascites Status: Acute (2) Abdominal distention: Status: Acute (3) Vomiting: Qualifiers: Vomiting type: bilious vomiting Nausea presence: with nausea Qualified Code(s): R11.14 - Bilious vomiting Status: Acute (4) Alcohol use disorder, severe, dependence: Status: Acute (5) Mild recurrent major depression: Status: Acute (6) Anxiety: Status: Acute (7) Alcohol intoxication: Qualifiers: Complication of substance-induced condition: with unspecified complication Qualified Code(s): F10.929 - Alcohol use, unspecified with intoxication, unspecified Status: Acute (8) Elevated LFTs: Status: Acute Plan Adelita Ibarra is a 48 years old woman with PMHx significant for alcohol hepatic cirrhosis admitted with: * Abdominal distention associated with vomiting and diarrhea (chronic), ? Colitis. Likely secondary to alcohol use/associated acute gastritis No ascites reported on CT scan. Start treatment with Protonix 40 mg twice daily. Start IV fluids. Antiemetic therapy as needed. Check C diff and GI panel. * Alcohol intoxication. I did not appreciate sign or symptoms of withdrawals (however, she received treatment with Ativan and phenobarbital). [facility] protocol. Thiamine, folic acid and multivitamin. IV fluids: D5. Continue phenobarbital for alcohol withdrawal symptoms. Check ammonia level. * Elevated LFTs secondary to alcohol abuse. Continue to monitor. Abstain from alcohol. * Mild thrombocytopenia is secondary to hepatic cirrhosis/chronic liver disease. No evidence of overt bleeding. Continue to monitor platelets. * Alcohol abuse. Addiction medicine consult. * History of anxiety and depression. She has been prescribed with Xanax, clonidine, sertraline and trazodone. Unclear if she is taking these. DVT prophylaxis: SCDs Code status: Full Patient will need hospitalization for at least 2 midnights for abdominal distention and vomiting treatment with antiemetic therapy, IV fluids and pain control as needed. Patient will also need evaluation by addiction medicine as she has been seeking assistance to detox from alcohol. Quality Stroke Does the patient have a stroke diagnosis?: No VTE Prior VTE?: No VTE Risk Level:: Medical - moderate - high VTE Device Contraindication: N/A - Device Ordered VTE Drug Contraindication: Treatment Not Indicated
[2024-02-03 05:20] LABS: MANUAL DIFF FLAG NO
[2024-02-03 05:23] LABS: Basophils Percent Auto 0.5 % (0-2); Eosinophils Absolute Auto 0.2 X10*3/uL (0.0-0.4); Hematocrit 36.1 % (37.0-47.0); Hemoglobin 12.3 g/dl (12.0-16.0); Imm Gran Abs Auto 0.02 X10*3/uL (0.00-0.03); Imm Gran Pct Auto 0.3 % (0.0-0.4); Lymphocytes Absolute Auto 2.7 X10*3/uL (1.2-4.9); Mean Corpuscular HGB Conc 34.1 g/dl (31.0-35.0); Mean Corpuscular Hemoglobin 35.7 pg (27.0-33.0); Mean Corpuscular Volume 104.6 fL (80.0-98.0); Mean Platelet Volume 11.9 fL (9.4-12.3); Monocytes Absolute Auto 0.6 X10*3/uL (0.1-1.2); Monocytes Percent Auto 8.1 % (2-11); Neutrophils Absolute Auto 3.7 x10*3/uL (2.0-8.3); Neutrophils Percent Auto 51.1 % (45-73); Platelet Count 155 X10*3/uL (160-400); Red Blood Count 3.45 X10*6/uL (4.20-5.50); Red Cell Distribution Width 14.6 % (11.0-16.0); White Blood Count 7.3 X10*3/uL (4.8-10.8)
[2024-02-03 05:47] LABS: Alanine Aminotransferase 51 U/L (0-31); Albumin Level 3.3 g/dL (3.5-5.0); Alkaline Phosphatase 139 U/L (39-117); Anion Gap 12 (12-20); Aspartate Amino Transferase 94 U/L (5-31); Bilirubin Total 0.3 mg/dL (0.0-1.0); Blood Urea Nitrogen 5 mg/dL (9-16); Calcium 8.1 mg/dL (8.4-10.2); Carbon Dioxide 24 mmol/L (22-29); Chloride 113 mmol/L (96-108); Creatinine Clr Calc Pharmacy 95.2; Estimated Glomerular Filt Rate > 60; Glucose Random 103 mg/dL (60-115); Magnesium 1.7 mg/dL (1.6-2.6); Potassium 3.5 mmol/L (3.3-5.1); Sodium 145 mmol/L (135-145); Total Protein 6.4 g/dL (6.5-8.0)
[2024-02-03] MEDS: Pantoprazole Sodium 40 MG/10 ML VIAL IVPUSH ×2 (05:58→15:37)
[2024-02-03 06:38] LABS: Ammonia 34 umol/L (13-55)
--- NOTE | 2024-02-03 07:30 | PC.NURSE ---
Resumed care of patient, she is currently resting comfortably, awaiting bed placement at this time, safety measures in place, call malave within reach
--- NOTE | 2024-02-03 08:56 | PHA.MEDREC ---
Pharmacy Consult ? Medication Reconciliation Pharmacy has completed the medication reconciliation. Spoke to patient and confirmed medication list.
[2024-02-03] MEDS: PHENobarbitaL 15 MG TABLET 45 MG PO ×2 (08:59→22:52)
[2024-02-03] MEDS: Folic Acid 1 MG TABLET PO (08:59)
[2024-02-03] MEDS: Multivitamin TABLET 1 TAB PO (08:59)
[2024-02-03 10:30] LABS: Lipase 20 U/L (8-78)
[2024-02-03 11:12] LABS: Glucose Random 103 mg/dL (60-115); Lactate Dehydrogenase 177 U/L (122-220); Total Protein 6.4 g/dL (6.5-8.0)
--- NOTE | 2024-02-03 11:36 | PM.GICN ---
History of Present Illness Data of Consult Service Date: 02/03/24 Requesting physician: Lissette Fink Primary Care Provider: Henrry Bland MD HPI Reason for consult: HE, abd distention This is a 48-year-old female past medical history of alcohol use disorder that has led to cirrhosis, who is here for worsening mental status and abdominal distention. History was obtained from the at bedside, who reports that for the past 4-5 days patient has been extremely lethargic and sleeping most of the day. When she does wake up, she continues to drink. Drinks up to 12 nips of vodka per day and mixes with xanax. Has not had any significant p.o. intake in terms of food. With this, also has noticed worsening abdominal distention and fatigue. Pt also reports diarrhea though is not too sure. Has had a previous admission for ascites in 2014, and they were worried about recollection and therefore came to the emergency room. Pt mentions she got a call from Gastroenterology office to come to the ER, however no such documentation from our office and no recent labs ordered by our office, in fact pt is lost to follow up since 2022. Currently on bedside assessment, remains somnolent did get phenobarb one hour before assessment, so could be contributing. Her last alcohol drink was yesterday afternoon. 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 Mother No problems noted. Family/Other Substance use disorder Maternal Grandmother Ovarian cancer Maternal Aunt Ovarian cancer Surgical History Surgical History Hx of endoscopy History of colonoscopy Social History Social History Housing: House Alcohol intake: current Alcohol intake frequency: 3 or more drinks per day Alcohol type: hard liquor Patient Tobacco Use Status: Tobacco use Unknown Tobacco use type: Cigarette Cigarettes Per Day: 15 Smoked in Last 30 Days: Yes e-Cigarette/Vaping Use: Never Used Second Hand Smoke Exposure: No Use of substances other than those prescribed or required for medical reasons: No Substance Use Type: Marijuana Advance Directives: No Advance Directives Information Provided: No Nutrition Risks: No Nutritional Risk Patient : No service: No Current occupational status: unemployed Cognitive needs: No Hearing needs: No Vision needs: No Meds Allergies Allergy/AdvReac Type Severity Reaction Status Date / Time No Known Allergies Allergy Verified 02/02/24 17:26 [No Known Allergies*] Active Medications: Current Medications Folic Acid (Folic Acid 1 Mg Tablet) 1 mg PO DAILY [facility] Last Admin: 02/03/24 08:59 Dose: 1 mg Dextrose/Sodium Chloride (D5ns) 1,000 mls @ 125 mls/hr IVCONT .Q8H [facility] Last Infusion: 02/03/24 11:07 Dose: Infused Thiamine HCl 100 mg/ Sodium (Chloride) 101 mls @ 202 mls/hr IV DAILY [facility] Stop: 02/08/24 01:39 Last Infusion: 02/03/24 02:31 Dose: Infused Multivitamins/Vitamin C (Multivitamin Tablet) 1 tab PO DAILY [facility] Last Admin: 02/03/24 08:59 Dose: 1 tab Ondansetron HCl (Ondansetron Hcl 4 Mg/2 Ml Vial) 4 mg IVPUSH Q6H PRN PRN Reason: Nausea and Vomiting Pantoprazole Sodium (Pantoprazole Sodium 40 Mg/10 Ml Vial) 40 mg IVPUSH BID@0630,1630 [facility] Last Admin: 02/03/24 05:58 Dose: 40 mg Pharmacy Consult (Consult Rx Etoh Phenob Im/Po) 1 each MISCELLANE ONCE PRN; Protocol PRN Reason: Consult order Phenobarbital (Phenobarbital 15 Mg Tablet) 45 mg PO BID [facility]; Protocol Stop: 02/04/24 21:01 Last Admin: 02/03/24 08:59 Dose: 45 mg Phenobarbital (Phenobarbital 15 Mg Tablet) 15 mg PO BID [facility]; Protocol Stop: 02/06/24 21:01 Phenobarbital (Phenobarbital 15 Mg Tablet) 15 mg PO DAILY [facility]; Protocol Stop: 02/08/24 09:01 Sodium Chloride (0.9 % Sodium Chloride Flush 3 Ml Syringe) 3 ml IVFLUSH QSHIFT [facility] Last Admin: 02/03/24 08:58 Dose: Not Given Physical Exam Vital Signs: Vital Signs: Last Vital Signs Temp 97.6 F 02/03/24 05:10 Pulse 75 02/03/24 08:43 Resp 25 H 02/03/24 08:43 BP 120/69 02/03/24 08:43 Pulse Ox 99 02/03/24 08:43 O2 Del Method Room Air 02/03/24 08:43 BMI result Body Mass Index 22.3 Middle-aged female, somnolent Nonicteric No overt respiratory distress Abdomen soft, nontender, distended, palpable hepatomegaly Neuro somnolent but awakens to verbal cue briefly, oriented x2, asterixis ++ No lower extremity edema Results Labs 02/03/24 04:56 02/03/24 10:29 Labs: Short CBC 02/02/24 02/03/24 Range/Units 17:46 04:56 WBC 8.9 7.3 (4.8-10.8) X10*3/uL Hgb 14.1 12.3 (12.0-16.0) g/dl Hct 41.3 36.1 L (37.0-47.0) % Plt Count 186 155 L (160-400) X10*3/uL BMP 02/02/24 02/03/24 17:46 04:56 Sodium 142 145 Potassium 3.8 3.5 Chloride 106 113 H Carbon Dioxide 28 24 BUN 6 L 5 L Creatinine 0.69 0.61 Calcium 9.6 D 8.1 L D Liver Function 02/02/24 02/03/24 Range/Units 17:46 04:56 Total Bilirubin 0.3 0.3 (0.0-1.0) mg/dL AST 139 H 94 H (5-31) U/L ALT 68 H 51 H (0-31) U/L Alkaline Phosphatase 192 H 139 H (39-117) U/L Albumin 4.2 3.3 L (3.5-5.0) g/dL Imaging CT scan - abdomen: My impression: Enlarged nodular liver measuring up to 19 cm. Minimal perihepatic ascites. Thickened colon wall without fatty stranding Assessment and Plan (1) Elevated LFTs: Status: Acute (2) Alcohol intoxication: Qualifiers: Complication of substance-induced condition: with unspecified complication Qualified Code(s): F10.929 - Alcohol use, unspecified with intoxication, unspecified Status: Acute (3) Abdominal distention: Status: Acute (4) Alcohol withdrawal syndrome: Status: Acute (5) Alcoholic cirrhosis: Qualifiers: Ascites presence: without ascites Qualified Code(s): K70.30 - Alcoholic cirrhosis of liver without ascites Status: Acute (6) Colon wall thickening: Status: Acute (7) Hepatic encephalopathy: Status: Acute Plan 1. Alc use cirrhosis c/b HE MELD-Na 7 Will need to r/o underlying infection as possible cause of encephalopathy. ? acute diarrheal illness. No evidence of bleeding clinically. No liver lesion or PVT on CT Abd (although not triple phased). No ascites clincally or on imaging. Abd distention likely 2/2 enlarged liver. Plan: - Complete infectious w/up with blood cultures, CXR, urinalysis - Send stool studies and C Diff - Start Rifaximin 550 BID. Can add lactulose if pt not having loose stools - CIWA scale - Addiction med consult once pt able to participate for etOH cessation counseling and OP resources 2. Colon wall thickening As above, hx of diarrhea is unclear and colon appearance more consistent with portal colopathy however can run stool studies as already outlined above. No indication for colonoscopy at this time. Thank you for allowing me to participate in her care. Please do not hesitate to reach out for any questions or concerns. Procedures Date of Service Date of Service: 02/03/24
--- NOTE | 2024-02-03 13:05 | MHC.CM.PN ---
IMM 02/03/24, Pt lives with , no home health services, no medical equipment. She said she has a HCP, her , CM will discuss completing form with her later as she was lethargic. DC plan is home, self care.
[2024-02-03 13:23] LABS: Amphetamine Screen Urine Not Detected (Not Detect); Barbiturates, Urine POSITIVE (Not Detect); Benzodiazepines Screen Urine POSITIVE (Not Detect); Cannabinoid Screen Urine Not Detected (Not Detect); Cocaine Screen Urine Not Detected (Not Detect); Fentanyl, urine Not Detected (Not Detect); Opiate Screen Urine Not Detected (Not Detect); Phencyclidine Screen Urine Not Detected (Not Detect)
[2024-02-03 13:27] LABS: Appearance Urine Clear; Color Urine Yellow; Glucose Urine UA Negative (Negative); Leukocyte Esterase Urine Negative (Negative); Nitrite Urine Negative (Negative); Specific Gravity - Urine >= 1.030 (1.005-1.025); Urine Blood Negative (Negative); Urine Ketones Negative (Negative); Urine Protein Negative (Neg-Trace)
[2024-02-03] MEDS: Lactulose 20 GM/30 ML SOLUTION PO ×2 (15:37→22:53)
[2024-02-03] MEDS: rifAXIMin 550 MG TABLET PO ×2 (15:37→22:53)
--- NOTE | 2024-02-03 15:57 | P.PNIM_ITS ---
Subjective Subjective Date of Service: 02/04/24 Interval History: date of servive 02/04/24: possible hepatic encepahlopathy Review of Systems more awake ,less agaitated Has some abdominal discomfort Denies any nausea or vomiting passing bm's No fever or chills Physical Exam 2 Vital Signs: Vital Signs: Last Vital Signs BMI result vitals reviewed from 02/04/24 Appearance: Alert.? Oriented X2 to 3 ,intermitent confused and agitated?. cvs: [id number], [id number] , no murmur res: clear to auscultation ,no rhonchii or wheezing abd: no rebound or guarding ,nt, abd distention somewhat improivng,bs present. ext pulses present , no cyanosis . neuro: axo3 , nonfocal. Objective Data Active Medications Folic Acid (Folic Acid 1 Mg Tablet) 1 mg PO DAILY [facility] Last Admin: 02/03/24 08:59 Dose: 1 mg Documented By: ROBERT Dextrose/Sodium Chloride (D5ns) 1,000 mls @ 125 mls/hr IVCONT .Q8H [facility] Last Admin: 02/03/24 15:38 Dose: 125 mls/hr Documented By: ROBERT Thiamine HCl 100 mg/ Sodium (Chloride) 101 mls @ 202 mls/hr IV DAILY [facility] Stop: 02/08/24 01:39 Last Infusion: 02/03/24 02:31 Dose: Infused Documented By: ROSE Lactulose (Lactulose 20 Gm/30 Ml Solution) 20 gm PO TID [facility] Last Admin: 02/03/24 15:37 Dose: 20 gm Documented By: ROBERT Multivitamins/Vitamin C (Multivitamin Tablet) 1 tab PO DAILY [facility] Last Admin: 02/03/24 08:59 Dose: 1 tab Documented By: ROBERT Ondansetron HCl (Ondansetron Hcl 4 Mg/2 Ml Vial) 4 mg IVPUSH Q6H PRN PRN Reason: Nausea and Vomiting Pantoprazole Sodium (Pantoprazole Sodium 40 Mg/10 Ml Vial) 40 mg IVPUSH BID@0630,1630 [facility] Last Admin: 02/03/24 15:37 Dose: 40 mg Documented By: ROBERT Pharmacy Consult (Consult Rx Etoh Phenob Im/Po) 1 each MISCELLANE ONCE PRN; Protocol PRN Reason: Consult order Phenobarbital (Phenobarbital 15 Mg Tablet) 45 mg PO BID [facility]; Protocol Stop: 02/04/24 21:01 Last Admin: 02/03/24 08:59 Dose: 45 mg Documented By: ROBERT Phenobarbital (Phenobarbital 15 Mg Tablet) 15 mg PO BID [facility]; Protocol Stop: 02/06/24 21:01 Phenobarbital (Phenobarbital 15 Mg Tablet) 15 mg PO DAILY [facility]; Protocol Stop: 02/08/24 09:01 Rifaximin (Rifaximin 550 Mg Tablet) 550 mg PO BID [facility] Last Admin: 02/03/24 15:37 Dose: 550 mg Documented By: ROBERT Sodium Chloride (0.9 % Sodium Chloride Flush 3 Ml Syringe) 3 ml IVFLUSH QSHIFT [facility] Last Admin: 02/03/24 15:38 Dose: Not Given Documented By: ROBERT Non-Admin Reason: IV Running Labs 02/03/24 04:56 02/03/24 10:29 Labs: Laboratory Results - last 24 hr 02/02/24 02/02/24 02/02/24 17:45 17:46 21:34 MCV 104.8 H MCH 35.8 H MCHC 34.1 RDW 14.4 Plt Count 186 MPV 12.1 Immature Gran % (Auto) 0.8 H Neut % (Auto) 54.8 Lymph % (Auto) 33.8 [place] % (Auto) 6.6 Eos % (Auto) 3.1 Baso % (Auto) 0.9 Lymph # (Auto) 3.0 [place] # (Auto) 0.6 Eos # (Auto) 0.3 Baso # (Auto) 0.1 Abs Immat Gran (auto) 0.07 H Absolute Neuts (auto) 4.9 Absolute Nucleated RBC 0.000 Nucleated RBC % (auto) 0.0 PT 13.0 INR 1.1 APTT 34.8 Anion Gap 12 Estim Creat Clear Calc 84.2 Estimated GFR > 60 Random Glucose 119 H Calcium 9.6 D Magnesium 2.0 Total Bilirubin 0.3 AST 139 H ALT 68 H Alkaline Phosphatase 192 H Ammonia Lactate Dehydrogenase Total Protein 8.3 H Albumin 4.2 Lipase 32 Vitamin B12 807 Folate 7.3 Beta HCG, Quant < 2 Urine Color Urine Appearance Urine pH Ur Specific [place] Urine Protein Urine Glucose (UA) Urine Ketones Urine Blood Urine Nitrite Ur Leukocyte Esterase Urine Opiates Screen Urine Fentanyl Screen Ur Barbiturates Screen Ur Phencyclidine Scrn Ur Amphetamines Screen U Benzodiazepines Scrn Urine Cocaine Screen U Marijuana (THC) Screen Ethyl Alcohol 144 Influenza Type A (PCR) NEGATIVE Influenza Type B (PCR) NEGATIVE RSV RNA Qual (PCR) NEGATIVE SARS-CoV-2 RNA (RT-PCR) NEGATIVE 02/03/24 02/03/24 02/03/24 04:56 06:09 10:29 MCV 104.6 H MCH 35.7 H MCHC 34.1 RDW 14.6 Plt Count 155 L MPV 11.9 Immature Gran % (Auto) 0.3 Neut % (Auto) 51.1 Lymph % (Auto) 37.0 [place] % (Auto) 8.1 Eos % (Auto) 3.0 Baso % (Auto) 0.5 Lymph # (Auto) 2.7 [place] # (Auto) 0.6 Eos # (Auto) 0.2 Baso # (Auto) 0.0 Abs Immat Gran (auto) 0.02 Absolute Neuts (auto) 3.7 Absolute Nucleated RBC 0.000 Nucleated RBC % (auto) 0.0 PT INR APTT Anion Gap 12 Estim Creat Clear Calc 95.2 Estimated GFR > 60 Random Glucose 103 103 Calcium 8.1 L D Magnesium 1.7 Total Bilirubin 0.3 AST 94 H ALT 51 H Alkaline Phosphatase 139 H Ammonia 34 Lactate Dehydrogenase 177 Total Protein 6.4 L 6.4 L Albumin 3.3 L Lipase 20 Vitamin B12 Folate Beta HCG, Quant Urine Color Urine Appearance Urine pH Ur Specific [place] Urine Protein Urine Glucose (UA) Urine Ketones Urine Blood Urine Nitrite Ur Leukocyte Esterase Urine Opiates Screen Urine Fentanyl Screen Ur Barbiturates Screen Ur Phencyclidine Scrn Ur Amphetamines Screen U Benzodiazepines Scrn Urine Cocaine Screen U Marijuana (THC) Screen Ethyl Alcohol Influenza Type A (PCR) Influenza Type B (PCR) RSV RNA Qual (PCR) SARS-CoV-2 RNA (RT-PCR) 02/03/24 13:06 MCV MCH MCHC RDW Plt Count MPV Immature Gran % (Auto) Neut % (Auto) Lymph % (Auto) [place] % (Auto) Eos % (Auto) Baso % (Auto) Lymph # (Auto) [place] # (Auto) Eos # (Auto) Baso # (Auto) Abs Immat Gran (auto) Absolute Neuts (auto) Absolute Nucleated RBC Nucleated RBC % (auto) PT INR APTT Anion Gap Estim Creat Clear Calc Estimated GFR Random Glucose Calcium Magnesium Total Bilirubin AST ALT Alkaline Phosphatase Ammonia Lactate Dehydrogenase Total Protein Albumin Lipase Vitamin B12 Folate Beta HCG, Quant Urine Color Yellow Urine Appearance Clear Urine pH 6.0 Ur Specific [place] >= 1.030 H Urine Protein Negative Urine Glucose (UA) Negative Urine Ketones Negative Urine Blood Negative Urine Nitrite Negative Ur Leukocyte Esterase Negative Urine Opiates Screen Not Detected Urine Fentanyl Screen Not Detected Ur Barbiturates Screen POSITIVE H Ur Phencyclidine Scrn Not Detected Ur Amphetamines Screen Not Detected U Benzodiazepines Scrn POSITIVE H Urine Cocaine Screen Not Detected U Marijuana (THC) Screen Not Detected Ethyl Alcohol Influenza Type A (PCR) Influenza Type B (PCR) RSV RNA Qual (PCR) SARS-CoV-2 RNA (RT-PCR) Assessment and Plan (1) Hepatic encephalopathy: Status: Acute (2) Colon wall thickening: Status: Acute Plan 48 years old woman with PMHx significant for alcohol hepatic cirrhosis admitted with: possible hepatic encepahlopathy,also received ativan in ed adb distended - improving , Likely secondary to liver cirrosis and enlargment of liver sec to alcohol use ,associated acute gastritis No ascites reported on CT scan. ammonia level-normal.cxr and ua negative , ct head negative has 2 bm's since yesterday adjusted lactulose and rifixamine , Protonix 40 mg twice daily, IV fluids,Antiemetic therapy as needed. GI evaluation noted-Check C diff and GI panel. Colon wall thickening :As above, hx of diarrhea is unclear and colon appearance more consistent with portal colopathy however can run stool studies as already outlined above. No indication for colonoscopy at this time. ? Alcohol intoxication.impending withdrawals (however, she received treatment with Ativan and phenobarbital). [facility] protocol. Thiamine, folic acid and multivitamin. IV fluids,Continue phenobarbital for alcohol withdrawal symptoms. avoid ativan for today Due to encephalopathy ? Elevated LFTs secondary to alcohol abuse.lft;s seems improving from before- Continue to monitor. Abstain from alcohol.addiction consult. ? Mild thrombocytopenia is secondary to hepatic cirrhosis/chronic liver disease. No evidence of overt bleeding. Continue to monitor platelets. ? History of anxiety and depression. She has been prescribed with Xanax, clonidine, sertraline and trazodone. Unclear if she is taking these. ongoing hospitalization need for abdominal distention and vomiting treatment with antiemetic therapy, IV fluids and pain control as needed.alcohol withdrawals -on phenobarbital/ciwa protocol, Patient will also need evaluation by addiction medicine as she has been seeking assistance to detox from alcohol.psych eval also pending Quality Stroke Does the patient have a stroke diagnosis?: No VTE Prior VTE?: No VTE Risk Level:: Medical - moderate - high VTE Device Contraindication: N/A - Device Ordered VTE Drug Contraindication: Treatment Not Indicated
--- NOTE | 2024-02-03 16:00 | PM.EVENT ---
Event Note Date of Service: 02/04/24 Event Note: This patient is seen and examined with hospital team this morning Seen and examined again Intermittent confused, agitated Has some abdominal discomfort Denies any nausea or vomiting passing gases ,no bm today sofar No fever or chills Physical exam : Appearance: Alert.? Oriented X3. cvs: [id number], [id number] , no murmur res: clear to auscultation ,no rhonchii or wheezing abd: soft, nontender, distended, palpable hepatomegaly,bs present. ext pulses present , no cyanosis . neuro: axo3 , nonfocal. assessment and plan coordinated in APCs note, Agree with the plan in addition: 48 years old woman with PMHx significant for alcohol hepatic cirrhosis admitted with: possible hepatic encepahlopathy,also received ativan overnight adb distended - Likely secondary to liver cirrosis and enlargment of liver sec to alcohol use ,associated acute gastritis No ascites reported on CT scan. ammonia level-normal.cxr and ua negative , ct head negative started lactulose and rifixamine , Protonix 40 mg twice daily, IV fluids,Antiemetic therapy as needed. GI evaluation noted-Check C diff and GI panel. Colon wall thickening :As above, hx of diarrhea is unclear and colon appearance more consistent with portal colopathy however can run stool studies as already outlined above. No indication for colonoscopy at this time. ? Alcohol intoxication.impending withdrawals (however, she received treatment with Ativan and phenobarbital). [facility] protocol. Thiamine, folic acid and multivitamin. IV fluids,Continue phenobarbital for alcohol withdrawal symptoms. avoid ativan for today Due to encephalopathy ? Elevated LFTs secondary to alcohol abuse.lft;s seems improving from before- Continue to monitor. Abstain from alcohol.addiction consult. ? Mild thrombocytopenia is secondary to hepatic cirrhosis/chronic liver disease. No evidence of overt bleeding. Continue to monitor platelets. ? History of anxiety and depression. She has been prescribed with Xanax, clonidine, sertraline and trazodone. Unclear if she is taking these. Time Spent With Patient Time: Total time managing care of this patient today ____ minutes.
[2024-02-03] MEDS: Thiamine HCL 400 MG in 0.9 % Sodium Chloride 100 ML 208 MG IV (21:09)
[2024-02-03] MEDS: 0.9 % Sodium Chloride Flush 3 ML SYRINGE IVFLUSH (22:53)
[2024-02-03] MEDS: traZODone HCL 50 MG TABLET PO (22:58)
[2024-02-04 03:19] VITALS: BP 128/62; PULSE 74; RESP 19; TEMP 36.1; O2SAT 94
[2024-02-04] MEDS: Pantoprazole Sodium 40 MG/10 ML VIAL IVPUSH ×2 (06:45→16:31)
[2024-02-04] MEDS: Dextrose 5 % and 0.9 % NaCl 1,000 ML 125 ML IVCONT ×3 (06:45→21:09)
[2024-02-04 07:13] VITALS: BP 123/64; PULSE 77; RESP 20; TEMP 36.2; O2SAT 92
[2024-02-04 07:18] LABS: Adenovirus F 40/41 Not Detected (Not Detect.); Astrovirus Not Detected (Not Detect.); Campylobacter Not Detected (Not Detect.); Cryptosporidium Not Detected (Not Detect.); Cyclospora cayetanensis Not Detected (Not Detect.); E. coli EAEC Not Detected (Not Detect.); E. coli EPEC Not Detected (Not Detect.); E. coli ETEC Not Detected (Not Detect.); E. coli STEC Not Detected (Not Detect.); Entamoeba histolytica Not Detected (Not Detect.); Giardia lamblia Not Detected (Not Detect.); Norovirus GI/GII Not Detected (Not Detect.); Plesiomonas shigelloides Not Detected (Not Detect.); Rotavirus A Not Detected (Not Detect.); Salmonella Not Detected (Not Detect.); Shigella sp./EIEC Not Detected (Not Detect.); Vibrio Not Detected (Not Detect.); Vibrio Cholerae Not Detected (Not Detect.); Yersinia enterocolitica Not Detected (Not Detect.)
[2024-02-04 07:19] LABS: Sapovirus Not Detected (Not Detect.)
[2024-02-04] MEDS: 0.9 % Sodium Chloride Flush 3 ML SYRINGE IVFLUSH ×2 (08:46→16:31)
[2024-02-04] MEDS: PHENobarbitaL 15 MG TABLET 45 MG PO ×2 (08:47→21:12)
[2024-02-04] MEDS: Multivitamin TABLET 1 TAB PO (08:47)
[2024-02-04] MEDS: Lactulose 20 GM/30 ML SOLUTION PO (08:47)
[2024-02-04] MEDS: Folic Acid 1 MG TABLET PO (08:47)
[2024-02-04] MEDS: Sertraline HCL 50 MG TABLET PO (08:48)
[2024-02-04] MEDS: rifAXIMin 550 MG TABLET PO ×2 (08:48→21:12)
[2024-02-04 11:29] VITALS: BP 126/72; PULSE 70; RESP 20; TEMP 36.7; O2SAT 95
--- NOTE | 2024-02-04 11:39 | P.CNPS_ITS ---
History of Present Illness Date of Service: 02/04/2024 Chief Complaint: Alcohol intoxication [facility] Medical History Alcohol intoxication Insomnia due to alcohol Mild recurrent major depression Alcoholism Easy bruising Marijuana smoker Tobacco use disorder Alcohol use disorder Chronic liver disease Alcohol abuse Anxiety Depression Anxiety Alcoholic cirrhosis Surgical History Hx of endoscopy History of colonoscopy Diagnostics Vital Signs (24Hr): Vital Signs - 24 hr 02/03/24 12:50 02/03/24 16:25 02/03/24 20:49 Temperature 97.6 F 99.2 F 98.2 F Pulse Rate 79 89 75 Respiratory Rate 25 H 17 16 Blood Pressure 137/89 132/85 134/84 Pulse Oximetry 97 99 96 Oxygen Delivery Method Room Air Room Air Room Air 02/03/24 22:14 02/03/24 23:56 02/04/24 03:19 Temperature 97.4 F 97.8 F 97.0 F Pulse Rate 80 70 74 Respiratory Rate 20 20 19 Blood Pressure 145/95 H 147/90 H 128/62 Pulse Oximetry 97 97 94 Oxygen Delivery Method Room Air Room Air Room Air 02/04/24 07:13 02/04/24 11:29 Temperature 97.2 F 98.1 F Pulse Rate 77 70 Respiratory Rate 20 20 Blood Pressure 123/64 126/72 Pulse Oximetry 92 95 Oxygen Delivery Method Room Air Room Air BMI result Body Mass Index 22.3 Labs 02/03/24 04:56 02/03/24 10:29 Labs: Laboratory Results - last 48 hr 02/02/24 02/02/24 02/02/24 17:45 17:46 21:34 WBC 8.9 RBC 3.94 L Hgb 14.1 Hct 41.3 MCV 104.8 H MCH 35.8 H MCHC 34.1 RDW 14.4 Plt Count 186 MPV 12.1 Immature Gran % (Auto) 0.8 H Neut % (Auto) 54.8 Lymph % (Auto) 33.8 [place] % (Auto) 6.6 Eos % (Auto) 3.1 Baso % (Auto) 0.9 Lymph # (Auto) 3.0 [place] # (Auto) 0.6 Eos # (Auto) 0.3 Baso # (Auto) 0.1 Abs Immat Gran (auto) 0.07 H Absolute Neuts (auto) 4.9 Absolute Nucleated RBC 0.000 Nucleated RBC % (auto) 0.0 PT 13.0 INR 1.1 APTT 34.8 Sodium 142 Potassium 3.8 Chloride 106 Carbon Dioxide 28 Anion Gap 12 BUN 6 L Creatinine 0.69 Estim Creat Clear Calc 84.2 Estimated GFR > 60 Random Glucose 119 H Calcium 9.6 D Magnesium 2.0 Total Bilirubin 0.3 AST 139 H ALT 68 H Alkaline Phosphatase 192 H Ammonia Lactate Dehydrogenase Total Protein 8.3 H Albumin 4.2 Lipase 32 Vitamin B12 807 Folate 7.3 Beta HCG, Quant < 2 Urine Color Urine Appearance Urine pH Ur Specific [place] Urine Protein Urine Glucose (UA) Urine Ketones Urine Blood Urine Nitrite Ur Leukocyte Esterase Stl C. cayetanensis PCR Stool Rotavirus A PCR Stl Adenov F 40/41 PCR Stool Astrovirus (PCR) Stool Campylobacter PCR Stool Cryptosporidium PCR Stl Sh Tox Pr E STEC PCR Stool E coli O157 PCR Stl Enterotoxigenic E PCR Stool EPEC (PCR) Stool EAEC (PCR) Stl E. histolytica PCR Stool Giardia Lamblia PCR Stl P. shigelloides PCR Stool Salmonella PCR Stool Sapovirus (PCR) Stl Shigella/EIEC PCR St Y.enterocolitica PCR Stool Vibrio (PCR) Stl Vibrio cholerae PCR Stl Norovirus GI/GII PCR Urine Opiates Screen Urine Fentanyl Screen Ur Barbiturates Screen Ur Phencyclidine Scrn Ur Amphetamines Screen U Benzodiazepines Scrn Urine Cocaine Screen U Marijuana (THC) Screen Ethyl Alcohol 144 Influenza Type A (PCR) NEGATIVE Influenza Type B (PCR) NEGATIVE RSV RNA Qual (PCR) NEGATIVE SARS-CoV-2 RNA (RT-PCR) NEGATIVE 02/03/24 02/03/24 02/03/24 04:56 06:09 10:29 WBC 7.3 RBC 3.45 L Hgb 12.3 Hct 36.1 L MCV 104.6 H MCH 35.7 H MCHC 34.1 RDW 14.6 Plt Count 155 L MPV 11.9 Immature Gran % (Auto) 0.3 Neut % (Auto) 51.1 Lymph % (Auto) 37.0 [place] % (Auto) 8.1 Eos % (Auto) 3.0 Baso % (Auto) 0.5 Lymph # (Auto) 2.7 [place] # (Auto) 0.6 Eos # (Auto) 0.2 Baso # (Auto) 0.0 Abs Immat Gran (auto) 0.02 Absolute Neuts (auto) 3.7 Absolute Nucleated RBC 0.000 Nucleated RBC % (auto) 0.0 PT INR APTT Sodium 145 Potassium 3.5 Chloride 113 H Carbon Dioxide 24 Anion Gap 12 BUN 5 L Creatinine 0.61 Estim Creat Clear Calc 95.2 Estimated GFR > 60 Random Glucose 103 103 Calcium 8.1 L D Magnesium 1.7 Total Bilirubin 0.3 AST 94 H ALT 51 H Alkaline Phosphatase 139 H Ammonia 34 Lactate Dehydrogenase 177 Total Protein 6.4 L 6.4 L Albumin 3.3 L Lipase 20 Vitamin B12 Folate Beta HCG, Quant Urine Color Urine Appearance Urine pH Ur Specific [place] Urine Protein Urine Glucose (UA) Urine Ketones Urine Blood Urine Nitrite Ur Leukocyte Esterase Stl C. cayetanensis PCR Stool Rotavirus A PCR Stl Adenov F 40/ PCR Stool Astrovirus (PCR) Stool Campylobacter PCR Stool Cryptosporidium PCR Stl Sh Tox Pr E STEC PCR Stool E coli O157 PCR Stl Enterotoxigenic E PCR Stool EPEC (PCR) Stool EAEC (PCR) Stl E. histolytica PCR Stool Giardia Lamblia PCR Stl P. shigelloides PCR Stool Salmonella PCR Stool Sapovirus (PCR) Stl Shigella/EIEC PCR St Y.enterocolitica PCR Stool Vibrio (PCR) Stl Vibrio cholerae PCR Stl Norovirus GI/GII PCR Urine Opiates Screen Urine Fentanyl Screen Ur Barbiturates Screen Ur Phencyclidine Scrn Ur Amphetamines Screen U Benzodiazepines Scrn Urine Cocaine Screen U Marijuana (THC) Screen Ethyl Alcohol Influenza Type A (PCR) Influenza Type B (PCR) RSV RNA Qual (PCR) SARS-CoV-2 RNA (RT-PCR) 02/03/24 02/03/24 13:06 16:59 WBC RBC Hgb Hct MCV MCH MCHC RDW Plt Count MPV Immature Gran % (Auto) Neut % (Auto) Lymph % (Auto) [place] % (Auto) Eos % (Auto) Baso % (Auto) Lymph # (Auto) [place] # (Auto) Eos # (Auto) Baso # (Auto) Abs Immat Gran (auto) Absolute Neuts (auto) Absolute Nucleated RBC Nucleated RBC % (auto) PT INR APTT Sodium Potassium Chloride Carbon Dioxide Anion Gap BUN Creatinine Estim Creat Clear Calc Estimated GFR Random Glucose Calcium Magnesium Total Bilirubin AST ALT Alkaline Phosphatase Ammonia Lactate Dehydrogenase Total Protein Albumin Lipase Vitamin B12 Folate Beta HCG, Quant Urine Color Yellow Urine Appearance Clear Urine pH 6.0 Ur Specific [place] >= 1.030 H Urine Protein Negative Urine Glucose (UA) Negative Urine Ketones Negative Urine Blood Negative Urine Nitrite Negative Ur Leukocyte Esterase Negative Stl C. cayetanensis PCR Not Detected Stool Rotavirus A PCR Not Detected Stl Adenov F 40/41 PCR Not Detected Stool Astrovirus (PCR) Not Detected Stool Campylobacter PCR Not Detected Stool Cryptosporidium PCR Not Detected Stl Sh Tox Pr E STEC PCR Not Detected Stool E coli O157 PCR Not applicable Stl Enterotoxigenic E PCR Not Detected Stool EPEC (PCR) Not Detected Stool EAEC (PCR) Not Detected Stl E. histolytica PCR Not Detected Stool Giardia [place]lia PCR Not Detected Stl P. shigelloides PCR Not Detected Stool Salmonella PCR Not Detected Stool Sapovirus (PCR) Not Detected Stl Shigella/EIEC PCR Not Detected St Y.enterocolitica PCR Not Detected Stool Vibrio (PCR) Not Detected Stl Vibrio cholerae PCR Not Detected Stl Norovirus GI/GII PCR Not Detected Urine Opiates Screen Not Detected Urine Fentanyl Screen Not Detected Ur Barbiturates Screen POSITIVE H Ur Phencyclidine Scrn Not Detected Ur Amphetamines Screen Not Detected U Benzodiazepines Scrn POSITIVE H Urine Cocaine Screen Not Detected U Marijuana (THC) Screen Not Detected Ethyl Alcohol Influenza Type A (PCR) Influenza Type B (PCR) RSV RNA Qual (PCR) SARS-CoV-2 RNA (RT-PCR) Imaging Radiology Impressions: ITS Impressions Abdomen/Pelvis CT 02/02/24 21:06 IMPRESSION: 1. Nonspecific mild thickening of the sigmoid colon and rectum. Correlate clinically for any symptoms of colitis. 2. Cirrhotic liver. 3. 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 Fleischner guidelines were followed. Head CT 02/03/24 10:14 IMPRESSION: Normal examination, no interval change Chest X-Ray 02/03/24 15:10 IMPRESSION: Unremarkable examination. Medications Medications Current Medications Clonidine HCl (Clonidine Hcl 0.1 Mg Tablet) 0.1 mg PO BEDTIME PRN; Protocol PRN Reason: anxiety Folic Acid (Folic Acid 1 Mg Tablet) 1 mg PO DAILY [facility] Last Admin: 02/04/24 08:47 Dose: 1 mg Dextrose/Sodium Chloride (D5ns) 1,000 mls @ 125 mls/hr IVCONT .Q8H [facility] Last Admin: 02/04/24 06:45 Dose: 125 mls/hr Lactulose (Lactulose 20 Gm/30 Ml Solution) 30 gm PO TID [facility] Multivitamins/Vitamin C (Multivitamin Tablet) 1 tab PO DAILY [facility] Last Admin: 02/04/24 08:47 Dose: 1 tab Ondansetron HCl (Ondansetron Hcl 4 Mg/2 Ml Vial) 4 mg IVPUSH Q6H PRN PRN Reason: Nausea and Vomiting Pantoprazole Sodium (Pantoprazole Sodium 40 Mg/10 Ml Vial) 40 mg IVPUSH BID@0630,1630 [facility] Last Admin: 02/04/24 06:45 Dose: 40 mg Pharmacy Consult (Consult Rx Etoh Phenob Im/Po) 1 each MISCELLANE ONCE PRN; Protocol PRN Reason: Consult order Phenobarbital (Phenobarbital 15 Mg Tablet) 45 mg PO BID [facility]; Protocol Stop: 02/04/24 21:01 Last Admin: 02/04/24 08:47 Dose: 45 mg Phenobarbital (Phenobarbital 15 Mg Tablet) 15 mg PO BID [facility]; Protocol Stop: 02/06/24 21:01 Phenobarbital (Phenobarbital 15 Mg Tablet) 15 mg PO DAILY [facility]; Protocol Stop: 02/08/24 09:01 Rifaximin (Rifaximin 550 Mg Tablet) 550 mg PO BID [facility] Last Admin: 02/04/24 08:48 Dose: 550 mg Sertraline HCl (Sertraline Hcl 50 Mg Tablet) 50 mg PO DAILY [facility] Last Admin: 02/04/24 08:48 Dose: 50 mg Sodium Chloride (0.9 % Sodium Chloride Flush 3 Ml Syringe) 3 ml IVFLUSH QSHIFT [facility] Last Admin: 02/04/24 08:46 Dose: 3 ml Trazodone HCl (Trazodone Hcl 50 Mg Tablet) 50 mg PO BEDTIME PRN PRN Reason: for insomnia Last Admin: 02/03/24 22:58 Dose: 50 mg Allergies Allergies Allergy/AdvReac Type Severity Reaction Status Date / Time No Known Allergies Allergy Verified 02/02/24 17:26 [No Known Allergies*] Assessment & Plan Total time managing care of this patient today ____ minutes.
[2024-02-04 15:03] VITALS: BP 101/60; PULSE 77; RESP 20; TEMP 36.2; O2SAT 97
--- NOTE | 2024-02-04 15:42 | PM.EVENT ---
Event Note Date of Service: 02/04/24 Event Note: Met with patient briefly- alert, oriented, reported currently detoxing and preferred full consult tomorrow. Also stated she wasn't sure if she wanted anything further (such as rehab) after completing detox. Will see for formal consult tomorrow Time Spent With Patient Time: Total time managing care of this patient today ____ minutes.
[2024-02-04] MEDS: Lactulose 20 GM/30 ML SOLUTION 30 GM PO ×2 (16:29→21:09)
--- NOTE | 2024-02-04 17:22 | MHC.RECOVRN ---
Met with pt in after consult placed to Addiction Medicine for AUD.? Chart review completed and received report from floor nurse Marc. Pt had presented to the ED for hard and painful stomach, black stool, increased fatigue and vomiting bile.? Pt also seeking detox.? She was admitted to the floor for abdominal distention and vomiting treatment with antiemetic therapy, IV fluids and pain control as needed.? Upon assessment pt is lying in bed resting but is easily aroused.? Once awake, pt is alert and oriented.? No W/D sx observed and last CIWA was a 1.? Pt reports a long history of drinking starting at approx. age 11.? She remembers the drinking increasing following the of her parents approx. 10 years ago.? She is currently dx with cirrhosis and has had at least one near experience related to drinking.? She has been in multiple treatment facilities and the only time she was able to maintain any amount of sobriety was following her near experience.? Pt is currently drinking 10 nips of vodka/day.? She does want to stop. Pt is interested in [facility] although she has tried in the past and has been unsuccessful.? We discussed multiple supports at once to help with cessation including therapy, psych, [facility] and meetings.? Pt reports she has never seen a psych and has never received effective treatment for her mental health issues. T/W provided pt with resources for [facility] and outpatient supports.? He was present and they were going to look over the information and I will visit tomorrow to help develop a plan of care.? I gave report to [facility] team and pt?s nurse Tran
[2024-02-04 18:55] VITALS: BP 144/89; PULSE 71; RESP 20; TEMP 36.7; O2SAT 96
[2024-02-05] VITALS: BP 115/69; PULSE 80; RESP 20; TEMP 36.5; O2SAT 97
[2024-02-05 04:00] VITALS: BP 140/81; PULSE 75; RESP 20; TEMP 36.5; O2SAT 96
[2024-02-05] MEDS: Pantoprazole Sodium 40 MG/10 ML VIAL IVPUSH (05:32)
[2024-02-05 07:56] VITALS: BP 132/77; PULSE 70; RESP 20; TEMP 36.4; O2SAT 96
[2024-02-05] MEDS: Folic Acid 1 MG TABLET PO (09:00)
[2024-02-05] MEDS: Multivitamin TABLET 1 TAB PO (09:00)
[2024-02-05] MEDS: Lactulose 20 GM/30 ML SOLUTION 30 GM PO (09:00)
[2024-02-05] MEDS: 0.9 % Sodium Chloride Flush 3 ML SYRINGE IVFLUSH (09:01)
[2024-02-05] MEDS: PHENobarbitaL 15 MG TABLET PO (09:01)
[2024-02-05] MEDS: rifAXIMin 550 MG TABLET PO (09:01)
[2024-02-05] MEDS: Sertraline HCL 50 MG TABLET PO (09:01)
--- NOTE | 2024-02-05 11:32 | P.DS_ITS ---
DS: Providers Provider Date of Service: 02/05/24 Date of admission: 02/03/24 01:38 Date of discharge: 02/05/24 Primary care physician: Henrry Bland MD Consults: 02/03/24 01:43 Addiction Medicine Routine Consulting Provider: Addiction Covering Reason for consultation: EtOH abuse Has provider been notified: No 02/03/24 05:37 Addiction Medicine Routine Consulting Provider: Addiction Covering Reason for consultation: Alcohol abuse Has provider been notified: No 02/03/24 08:48 Consult to Gastroenterology Routine Consulting Provider: [facility] Reason for consultation: ABD PAIN/?colitis Has provider been notified: No 02/03/24 14:56 Consult for Sitter Routine Reason for consultation: Encephalopathy Has provider been notified: No 02/03/24 16:09 Consult to Psychiatry Routine Consulting Provider: Psych Covering Reason for consultation: severe anxiety-medication adjustment Has provider been notified: No Attending physician on discharge: Lissette Fink Discharging clinician: Lissette Fink DS: Diagnosis Discharge Diagnosis (1) Hepatic encephalopathy: Status: Acute (2) Colon wall thickening: Status: Acute DS: Summary Hospital Course Hospital Course: 48 years old woman with PMHx significant for alcohol abuse and alcohol withdrawal seizures presents to the emergency department due to abdominal distention and seeking detox. HPI was very difficult to obtain directly from the patient as she is seems to be intoxicated in addition to that she received treatment with Ativan and phenobarbital prior to evaluation. According to ED triage note patient was stated that Dr. David call and said to come to the ED. she was complaining of abdominal distention associated with pain and bilious vomiting. She also said that her stools were black. Last drink was 30 minute before arriving to the emergency department (5:22 PM). According to ED provider the patient told him she drinks vodka almost every day and has chronic diarrhea. No hallucinations were reported. In the ED she was found to have stable vital signs. Blood workup showed no leukocytosis. Hemoglobin is 12.3. There is minimal thrombocytopenia. There are no significant electrolyte imbalances. LFTs are elevated sed bilirubin. Lipase is normal. test is negative. Folate and vitamin B12 are normal. Viral testing for COVID-19, RSV and influenza are negative. Abdominal pelvis CT scan showed nonspecific mild thickening of the sigmoid colon and rectum, correlate clinically for any symptoms of colitis, cirrhotic liver and bilateral avascular necrosis of the femoral heads without subchondral collapse. ED tx: Phenobarbital 162.5 mg IM, Ativan 2 mg IV, Pepcid 20 mg IV, Zofran 4 mg IV, NS 1 L bolus. Hospital course: Patient was initially admitted for abdominal discomfort, distention, hepatic encephalopathy - seen by GI, started on lactulose, rifaximin, in addition patient had alcohol withdrawal so started on phenobarb protocol.With above management patient is passing bowel and abdominal discomfort seems to be improved as well as mental status also improved significantly, abdominal CT does not show ascites.ct abd reviewed by Gi- colon appearance more consistent with portal colopathy. Patient is passing formed bowels, no diarrhae ,Gasteroinestinal panel -negative , tolerating diet. alcohol withdrawal: improved with phenobarb protocol, patient was strongly advised to abstain from alcohol she says she is going to stop alcohol use. Anxiety: Seen by psych, continue current psych medication regimen. Patient needs to follow-up with PCP and GI outpatient. plan: continue lactulose 30 gm po tid -goal of 3 bm's a day and rifaxmine 550 mg po bid follow bmp in 1 week. above management discussed with the patient and her at bedside they both understand and in agreement with the plan, time spent 40 minutes. Time Attestation Total time managing care of this patient today: 40 mintues. Discharge Coordination Time (in mins): 40 min Quality: Safe Use of Opioids Does Pt have an Active Cancer Diagnosis on the Problem List?: No Quality: Stroke Does the patient have a stroke diagnosis?: No Physical Exam Vital Signs: Vital Signs: Last Vital Signs Temp 97.5 F 02/05/24 07:56 Pulse 70 02/05/24 07:56 Resp 20 02/05/24 07:56 BP 132/77 02/05/24 07:56 Pulse Ox 96 02/05/24 07:56 O2 Del Method Room Air 02/05/24 07:56 BMI result Body Mass Index 22.3 Appearance: Alert.? Orientedx3 ,intermitent confused and agitated?. cvs: rrr, [id number] , no murmur res: clear to auscultation ,no rhonchii or wheezing abd: no rebound or guarding ,nt, abd distention somewhat improivng,bs present. ext pulses present , no cyanosis . neuro: axo3 , nonfocal. DS: Data Imaging Chest x-ray: Radiologist's impression: ITS Impressions Abdomen/Pelvis CT 02/02/24 21:06 IMPRESSION: 1. Nonspecific mild thickening of the sigmoid colon and rectum. Correlate clinically for any symptoms of colitis. 2. Cirrhotic liver. 3. 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 Fleischner guidelines were followed. Head CT 02/03/24 10:14 IMPRESSION: Normal examination, no interval change Chest X-Ray 02/03/24 15:10 IMPRESSION: Unremarkable examination. Discharge Plan Discharge Anticipated Discharge Date/Time: 02/05/24 11:14 Patient Disposition: Home, Self-Care Discharge Diagnosis: Hepatic encephalopathy, alcohol withdrawal Referrals: Henrry Bland MD [Primary Care Provider] - 1 Week Discharge Medications: New folic acid 1 mg Tablet 1 mg PO DAILY Qty: 30 0RF Xifaxan 550 mg Tablet 550 mg PO BID Qty: 120 0RF lactulose 20 gram/30 mL Solution 30 g PO TID Qty: 600 0RF Rx Instructions: please give 1 month supply Continued trazodone 50 mg tablet 50 mg PO BEDTIME PRN (Reason: for insomnia) 90 Days Qty: 90 1RF clonidine HCl 0.1 mg tablet 0.1 mg PO BEDTIME PRN (Reason: anxiety) Qty: 30 5RF sertraline 50 mg tablet 50 mg PO DAILY 90 Days Qty: 90 1RF alprazolam 1 mg tablet 1 mg PO TID PRN (Reason: anxiety) Qty: 86 0RF Discharge Orders: Discharge Order (Routine); Ordered 02/05/24 Ordered By: Lissette Fink Diet: Advance to usual diet Activity on Discharge: As tolerated Stand Alone Forms: Patient Portal Discharge page Print Language: Mongolian Care Plan Goals: Patient was initially admitted for abdominal discomfort, distention, hepatic encephalopathy - seen by GI, started on lactulose, rifaximin, in addition patient had alcohol withdrawal so started on phenobarb protocol.With above management patient is passing bowel and abdominal discomfort seems to be improved as well as mental status also improved significantly, abdominal CT does not show ascites.ct abd reviewed by Gi- colon appearance more consistent with portal colopathy. Patient is passing formed bowels, no diarrhae ,Gasteroinestinal panel -negative , tolerating diet. alcohol withdrawal: improved with phenobarb protocol, patient was strongly advised to abstain from alcohol she says she is going to stop alcohol use. Anxiety: Seen by psych, continue current psych medication regimen. Patient needs to follow-up with PCP and GI outpatient. Health Concerns: as above. Plan of Treatment: continue lactulose 30 gm po tid -goal of 3 bm's a day and rifaxmine 550 mg po bid follow bmp in 1 week. Assessment: as above.
[2024-02-05 11:42] VITALS: BP 152/78; PULSE 79; RESP 20; TEMP 36.8; O2SAT 95
--- NOTE | 2024-02-05 13:36 | PM.PSYCN ---
History of Present Illness Date of Service: 02/05/2024 Chief Complaint: Alcohol intoxication Discussed with referring provider: Yes Sources of Information: patient interviewed and chart reviewed HPI Narrative: Self presented for alcohol detox. Noted cirrhosis. Noted phenobarb. Also reviewed [facility]- xanax consistent without evidence of misuse x at least 2 years. Reviewed addiction consult 2020- please refer to same for more background and info. Pt alert and oriented today. Pleasant. Feeling physically well and safe from detox perspective. No depression. Baseline anxiety- xanax helpful. No psychosis, SI, HI. Reports needing to stop drinking I know I will be in 6 months if I don't . Cites adult children as motivators, also her own wellbeing and having been sober for 5 years until 2020. Reports wanting to try medications and open to acamprosate (given liver cirrhosis) I was on it before but didnt give it a proper try . Also plans on meetings and increasing hours at work ([employer]). Also realistic that will continue to drink- she was able to have 5 years sobriety while he was also drinking. Past Psychiatric History: Anxiety Disorder. PCP prescribes medications. 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 Adult children aged 28 and 20 living at home. [employer] employee. Substance History: Alcohol Use Disorder. Associated Cirrhosis. Has 5 years sobriety until 2020. Diagnostics Vital Signs (24Hr): Vital Signs - 24 hr 02/04/24 15:03 02/04/24 18:55 02/05/24 00:00 Temperature 97.2 F 98.0 F 97.7 F Pulse Rate 77 71 80 Respiratory Rate 20 20 20 Blood Pressure 101/60 144/89 H 115/69 Pulse Oximetry 97 96 97 Oxygen Delivery Method Room Air Room Air Room Air 02/05/24 04:00 02/05/24 07:56 02/05/24 11:42 Temperature 97.7 F 97.5 F 98.3 F Pulse Rate 75 70 79 Respiratory Rate 20 20 20 Blood Pressure 140/81 H 132/77 152/78 H Pulse Oximetry 96 96 95 Oxygen Delivery Method Room Air Room Air Room Air BMI result Body Mass Index 22.3 Labs 02/03/24 04:56 02/03/24 10:29 Labs: Laboratory Results - last 48 hr 02/03/24 16:59 Stl C. cayetanensis PCR Not Detected Stool Rotavirus A PCR Not Detected Stl Adenov F 40/41 PCR Not Detected Stool Astrovirus (PCR) Not Detected Stool Campylobacter PCR Not Detected Stool Cryptosporidium PCR Not Detected Stl Sh Tox Pr E STEC PCR Not Detected Stool E coli O157 PCR Not applicable Stl Enterotoxigenic E PCR Not Detected Stool EPEC (PCR) Not Detected Stool EAEC (PCR) Not Detected Stl E. histolytica PCR Not Detected Stool Giardia Lamblia PCR Not Detected Stl P. shigelloides PCR Not Detected Stool Salmonella PCR Not Detected Stool Sapovirus (PCR) Not Detected Stl Shigella/EIEC PCR Not Detected St Y.enterocolitica PCR Not Detected Stool Vibrio (PCR) Not Detected Stl Vibrio cholerae PCR Not Detected Stl Norovirus GI/GII PCR Not Detected Imaging Radiology Impressions: ITS Impressions Abdomen/Pelvis CT 02/02/24 21:06 IMPRESSION: 1. Nonspecific mild thickening of the sigmoid colon and rectum. Correlate clinically for any symptoms of colitis. 2. Cirrhotic liver. 3. 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 Fleischner guidelines were followed. Head CT 02/03/24 10:14 IMPRESSION: Normal examination, no interval change Chest X-Ray 02/03/24 15:10 IMPRESSION: Unremarkable examination. Mental Status Exam Mental Status Exam Patient Appearance: Well Grooomed Patient Orientation: Person, Place, Time and Situation Level of Consciousness: Awake Patient Behavior: Appropriate Mood Description: Calm Affect Description: Calm Patient Cognition Impaired: No Ability to Follow Directions: Excellent Speech Pattern: Clear Memory Description: Intact Hallucinations: None Delusions: Not Present Thought Process: Intact Thought Content: positive for Intact Judgement: Fair Medications Medications Current Medications Clonidine HCl (Clonidine Hcl 0.1 Mg Tablet) 0.1 mg PO BEDTIME PRN; Protocol PRN Reason: anxiety Folic Acid (Folic Acid 1 Mg Tablet) 1 mg PO DAILY [facility] Last Admin: 02/05/24 09:00 Dose: 1 mg Lactulose (Lactulose 20 Gm/30 Ml Solution) 30 gm PO TID [facility] Last Admin: 02/05/24 09:00 Dose: 30 gm Multivitamins/Vitamin C (Multivitamin Tablet) 1 tab PO DAILY [facility] Last Admin: 02/05/24 09:00 Dose: 1 tab Ondansetron HCl (Ondansetron Hcl 4 Mg/2 Ml Vial) 4 mg IVPUSH Q6H PRN PRN Reason: Nausea and Vomiting Pantoprazole Sodium (Pantoprazole Sodium 40 Mg/10 Ml Vial) 40 mg IVPUSH BID@0630,1630 [facility] Last Admin: 02/05/24 05:32 Dose: 40 mg Pharmacy Consult (Consult Rx Etoh Phenob Im/Po) 1 each MISCELLANE ONCE PRN; Protocol PRN Reason: Consult order Phenobarbital (Phenobarbital 15 Mg Tablet) 15 mg PO BID [facility]; Protocol Stop: 02/06/24 21:01 Last Admin: 02/05/24 09:01 Dose: 15 mg Phenobarbital (Phenobarbital 15 Mg Tablet) 15 mg PO DAILY [facility]; Protocol Stop: 02/08/24 09:01 Rifaximin (Rifaximin 550 Mg Tablet) 550 mg PO BID [facility] Last Admin: 02/05/24 09:01 Dose: 550 mg Sertraline HCl (Sertraline Hcl 50 Mg Tablet) 50 mg PO DAILY [facility] Last Admin: 02/05/24 09:01 Dose: 50 mg Sodium Chloride (0.9 % Sodium Chloride Flush 3 Ml Syringe) 3 ml IVFLUSH QSHIFT [facility] Last Admin: 02/05/24 09:01 Dose: 3 ml Trazodone HCl (Trazodone Hcl 50 Mg Tablet) 50 mg PO BEDTIME PRN PRN Reason: for insomnia Last Admin: 02/03/24 22:58 Dose: 50 mg Allergies Allergies Allergy/AdvReac Type Severity Reaction Status Date / Time No Known Allergies Allergy Verified 02/02/24 17:26 [No Known Allergies*] Assessment & Plan Assessment & Plan (1) Alcohol use disorder, severe, dependence: Status: Acute Code(s): F10.20 - Alcohol dependence, uncomplicated Plan Well established alcohol use disorder, insightful ref impact and challenges in achieving sobriety and consequences if continues to drink. Motivated for change. Acamprosate could be helpful for cravings in context of liver cirrhosis- 666mg three times daily and pt agrees to same. Would not make changes to any other medications through PCP. Total time managing care of this patient today ____ minutes. Patient educated on: diagnosis and medication risk/benefits Informed Consent: understands
[2024-02-05] MEDS: Potassium Chloride Packet 20 MEQ PACKET 40 MEQ PO ×2 (14:07→14:08)
--- NOTE | 2024-02-05 15:35 | MHC.CM.PN ---
PT WILL DC HOME TODAY WITH NO SERVICES PT TO ARRANGE TRANSPORT
--- NOTE | 2024-02-05 16:23 | MHC.RECOVRN ---
Went to meet with pt. in [id number] and she had D/C home.
== END 2024-02-05 14:56 | disposition home or self-care (01) | DRG 433 ==
LOC: HO.ED 23:57 → HO.EDOVER 02-03 01:48 → HO.IMC 02-03 19:31
PROVIDERS: Physician Assistant Medical; Admitting Provider Internal Medicine; Emergency Provider Internal Medicine; PCP Student in an Organized Health Care Education/Training Program; Visit Provider Internal Medicine
DX: K70.30 Alcoholic cirrhosis of liver without ascites (principal); F10.239 Alcohol dependence with withdrawal, unspecified; F10.229 Alcohol dependence with intoxication, unspecified; Y90.6 Blood alcohol level of 120-199 mg/100 ml; K29.20 Alcoholic gastritis without bleeding; K76.82 Hepatic encephalopathy; D69.59 Other secondary thrombocytopenia; Z20.822 Contact with and (suspected) exposure to COVID-19; F41.9 Anxiety disorder, unspecified; F32.A Depression, unspecified; Z79.899 Other long term (current) drug therapy
CPT/HCPCS: 0241U; 36415; 70450; 71045; 74177; 80053; 80307; 81003; 82140; 82607; 82746; 82947; 83615; 83690; 83735; 84155; 84702; 85025; 85610; 85730; 87507; 99285; C9113; J2060; J2405; J2560; J3411; Q9967

== ENCOUNTER → 2024-02-03 01:38 | Outpatient (BNV) | payer MEDICARE, MEDICAID, SELFPAY | PROVIDERS: Admitting Provider Internal Medicine; Emergency Provider Internal Medicine; PCP Student in an Organized Health Care Education/Training Program; Visit Provider Internal Medicine | DX: K70.30 Alcoholic cirrhosis of liver without ascites (principal); R14.0 Abdominal distension (gaseous); R11.14 Bilious vomiting; F10.20 Alcohol dependence, uncomplicated; F33.0 Major depressive disorder, recurrent, mild; F41.9 Anxiety disorder, unspecified; F10.929 Alcohol use, unspecified with intoxication, unspecified; R79.89 Other specified abnormal findings of blood chemistry; K76.82 Hepatic encephalopathy; K63.9 Disease of intestine, unspecified | CPT/HCPCS: 99223; 99239; 99499 ==

== ENCOUNTER → 2024-02-03 01:38 | Outpatient (BNV) | payer MEDICARE, MEDICAID, SELFPAY | PROVIDERS: Admitting Provider Internal Medicine; Emergency Provider Internal Medicine; PCP Student in an Organized Health Care Education/Training Program; Visit Provider Psychiatry & Neurology Psychiatry | DX: F10.20 Alcohol dependence, uncomplicated (principal) | CPT/HCPCS: 99232; 99499 ==

== ENCOUNTER → 2024-02-03 01:38 | Outpatient (BNV) | payer MEDICARE, MEDICAID, SELFPAY | PROVIDERS: Admitting Provider Internal Medicine; Emergency Provider Internal Medicine; PCP Student in an Organized Health Care Education/Training Program; Visit Provider Internal Medicine | DX: R74.01 Elevation of levels of liver transaminase levels (principal); F10.929 Alcohol use, unspecified with intoxication, unspecified; R14.0 Abdominal distension (gaseous); K70.30 Alcoholic cirrhosis of liver without ascites; K63.9 Disease of intestine, unspecified; K76.82 Hepatic encephalopathy | CPT/HCPCS: 99223 ==

== ENCOUNTER 2024-02-07 13:14 | Outpatient (AMB) | payer MEDICARE, MEDICAID, SELFPAY ==
[2024-02-07 14:21] VITALS: BP 130/80; PULSE 92; RESP 20; O2SAT 95
--- NOTE | 2024-02-07 14:21 | MHC.AM.SUB ---
Intake Vital Signs 02/07/24 14:21 BP 130/80 Blood Pressure Location Rt radial Position Sitting Respiration 20 Pulse 92 Pulse Oximetry (%) 95 Oxygen Delivery Method Room Air Intake Visit Reasons: Intake Allergies No Known Allergies [No Known Allergies*] Allergy (Verified 02/02/24 17:26) HPI Intake HPI Details Patient presents to establish care She was referred by [facility]/ Nurse navigation PCP: Dr. 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 Reports she relapsed in 2019 and was drinking daily since She has been to detox multiple times Was placed on section 35 in 2021 BH hx Has no current providers, was previously a pt of [facility] Hx of: anxiety, depression, and an eating disorder when she was younger PMH NKMarcie Has previously had seizures she attributes to when she was on wellbutrin (which has since been d/c) She is unsure if she has ever been checked for Hep A,B,C States she was getting regular paracentesis in [id number] Her treatment goal is to abstain from drinking for her health [facility] Medical History Alcohol intoxication 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 Mother No problems noted. Family/Other Substance use disorder Maternal Grandmother Ovarian cancer Maternal Aunt Ovarian cancer Social History Household Members: Spouse Housing: House Do you presently have visiting nurse or other home services: No Alcohol intake: current Alcohol intake frequency: 3 or more drinks per day Alcohol type: hard liquor Patient Tobacco Use Status: Current everyday Tobacco user Tobacco use type: Cigarette Cigarettes Per Day: 15 e-Cigarette/Vaping Use: Never Used Second Hand Smoke Exposure: Yes Substance Use Type: Marijuana service: No Current occupational status: unemployed Cognitive needs: No Hearing needs: No Vision needs: No Female Reproductive History Menstrual Age of Menarche: 10 Review of Systems Const Reports as per HPI Physical Exam Vital Signs: Last Vital Signs Pulse 92 02/07/24 14:21 Resp 20 02/07/24 14:21 BP 130/80 02/07/24 14:21 Pulse Ox 95 02/07/24 14:21 Oxygen Delivery Method Room Air 02/07/24 14:21 Const General: cooperative and no acute distress Eyes Conjunctivae: conjunctivae normal Resp Effort & Inspection: normal respiratory effort Skin General skin exam: no rashes or lesions noted and no jaundice Psych Appearance: grossly normal Mental Status: mental status grossly normal Speech and movement: Normal speech and movement present Affect: Sad affect present Attitude: cooperative Thought process: Normal thought process present Assessment & Plan Assessment & Plan (1) Alcohol use disorder, severe, dependence: Code(s): F10.20 - Alcohol dependence, uncomplicated Plan: -Start naltrexone -Check for Hep A,B,C -Recovery supports discussed and phone numbers provided -Discussed relapse prevention -Follow up 1 week Orders: Orders Hepatitis A,B,C Profile 02/07/24 F10.20 - Alcohol dependence, uncomplicated Ammonia 02/07/24 F10.20 - Alcohol dependence, uncomplicated Medications: New thiamine HCl (vitamin B1) 100 mg PO DAILY 30 tabs 0RF naltrexone Take 1/2 tab for the first 3 days, progress to full tab on day 4 if well tolerated 50 mg PO DAILY 30 tabs 0RF Discontinued acamprosate Discontinued Reason: More recent result 666 mg (2 x 333 mg) PO TID 180 tabs 2RF Coding Level of Care Code New Pt Level 4 (19648) Diagnoses Alcohol use disorder, severe, dependence F10.20
== END 2024-02-07 14:09 | disposition home or self-care (01) ==
PROVIDERS: PCP Student in an Organized Health Care Education/Training Program; Visit Provider Nurse Practitioner Family
DX: F10.20 Alcohol dependence, uncomplicated (principal)
CPT/HCPCS: 99204

== ENCOUNTER → 2024-02-07 13:14 | Outpatient (BNVA) | payer MEDICARE, MEDICAID, SELFPAY | PROVIDERS: PCP Student in an Organized Health Care Education/Training Program; Visit Provider Nurse Practitioner Family | DX: F10.20 Alcohol dependence, uncomplicated (principal) | CPT/HCPCS: 99202 ==

== ENCOUNTER 2024-02-20 10:13 | Outpatient (REF) | payer MEDICARE, MEDICAID, SELFPAY ==
[2024-02-20 10:34] LABS: Ammonia 32 umol/L (13-55)
[2024-02-20 11:25] LABS: HBS Num1 0.38 mIU/mL (0-7.99); HBc Num1 0.15 S/CO (0.00-0.79); Hepatitis A Antibody IgM 0.29 Index (0-0.79); Hepatitis B Core Antibody Nonreactive (Nonreactive); Hepatitis B Surface Antigen Negative (Negative); ~Hepatitis A Antibody IgM Nonreactive (Nonreactive); ~Hepatitis B Surface Antibody NONREACTIVE (Nonreactive); ~Hepatitis C Antibody Nonreactive (Nonreactive)
== END 2024-02-20 10:14 | disposition home or self-care (01) ==
LOC: HO.LAB 10:13
PROVIDERS: PCP Student in an Organized Health Care Education/Training Program; Visit Provider Nurse Practitioner Family
DX: F10.20 Alcohol dependence, uncomplicated (principal); R79.89 Other specified abnormal findings of blood chemistry
CPT/HCPCS: 36415; 82140; 86704; 86706; 86709; 86803; 87340

== ENCOUNTER 2024-02-20 13:37 | Outpatient (AMB) | payer MEDICARE, MEDICAID, SELFPAY ==
--- NOTE | 2024-02-20 13:37 | A.OFFVIS_ITS ---
Intake Visit Reasons: Abdominal Pains - Possible Para Needed Intake Note: Adelita presents as a telehealth as a follow up for possible para needed. CC: She states that she is not having any concerns at this time. 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: No Allergies No Known Allergies [No Known Allergies*] Allergy (Verified 02/20/24 13:37) HPI HPI Abdominal Pains - Possible Para Needed: Details: 48 yr old f being seen for f/u for alcoholic liver disease RECAP: She has been struggling with alcohol on and off had relapse to alcohol from 01/2020 and going back and forth with drinking takes mostly vodka nips LabS: A1At nml, LISA, SLA, SMA, Igg levels were nml, Hep A,B, C negative LFT nml 03/2022 LFT nml 02/20 apart from mild raised shelley phos, INR: 1, plst 290, h/H LFT 02/21: nml bili, INR 1.1, ild ASt, ALT elevation, alb 3.3 US 2020---cirrhosis, no free fluid US 08/2021-- liver appeared nml, normal portal flow US 04/2022- cirrhosis, no masses US 12/22--echogenic, lobulated liver, elastography 1.6 CT 02/21-- cirrhosis, non specific mild thickening of rectum, b/l avascular necrosis of femoral heads INTERIM: she was admitted with AMs and alcohol intoxication few weeks ago she denies abdominal pain she has still been drinking --had 12 nips last few weels appetite is not that great she has occ tremors no blood in stool or melena she has no jaundice she needs lactulose EXAM: GENERAL: The patient is well developed and nontoxic. 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 Mother No problems noted. Family/Other Substance use disorder Maternal Grandmother Ovarian cancer Maternal Aunt Ovarian cancer Social History Household Members: Spouse Housing: House Do you presently have visiting nurse or other home services: No Alcohol intake: current Alcohol intake frequency: 3 or more drinks per day Alcohol type: hard liquor Patient Tobacco Use Status: Current everyday Tobacco user Tobacco use type: Cigarette Cigarettes Per Day: 15 e-Cigarette/Vaping Use: Never Used Second Hand Smoke Exposure: Yes Substance Use Type: Marijuana service: No Current occupational status: unemployed Cognitive needs: No Hearing needs: No Vision needs: No Female Reproductive History Menstrual Age of Menarche: 10 Telehealth Telehealth Telehealth Platform: [employer] Location of provider rendering services: practice address Location of patient: address on file Patient Identification confirmed using: Name, : Yes Telehealth method: video Patient verbally consented to treatment: Yes Patient verbally consented to billing insurance company: Yes Patient informed of any privacy concerns related to visit: Yes Minutes spent on Phone/Video with Pt.: 11 Assessment & Plan Assessment & Plan (1) Elevated LFTs: Code(s): R79.89 - Other specified abnormal findings of blood chemistry Category: Medical Plan: see above Medications: Refilled lactulose please give 1 month supply 30 grams (45 mL) PO TID 1,200 mL 0RF
== END 2024-02-20 15:06 | disposition home or self-care (01) ==
LOC: HO.HGI 13:37
PROVIDERS: PCP Student in an Organized Health Care Education/Training Program; Visit Provider Internal Medicine Gastroenterology
DX: R74.01 Elevation of levels of liver transaminase levels (principal)
CPT/HCPCS: 99213

== ENCOUNTER 2024-03-26 21:20 | Emergency (ER) | payer MEDICARE, MEDICAID, SELFPAY ==
[2024-03-26 22:00] VITALS: BP 112/76; PULSE 84; RESP 17; TEMP 36.4; O2SAT 96; BMI 23.2
[2024-03-26 22:34] LABS: MANUAL DIFF FLAG NO
--- NOTE | 2024-03-26 22:46 | PC.NURSE ---
Patient's belongings locked up in POD locker #9, did not have phone with her on admission on ED.
--- NOTE | 2024-03-26 22:47 | MHC.EDTECH ---
pt changed over with security and belongings in POD locker 9
[2024-03-26 22:51] LABS: Amphetamine Screen Urine Not Detected (Not Detect); Barbiturates, Urine Not Detected (Not Detect); Benzodiazepines Screen Urine POSITIVE (Not Detect); Buprenorphine Scr Not Detected (Not Detect); Cannabinoid Screen Urine Not Detected (Not Detect); Cocaine Screen Urine Not Detected (Not Detect); Fentanyl, urine Not Detected (Not Detect); Methadone Screen, Urine Not Detected (Not Detect); Opiate Screen Urine Not Detected (Not Detect); Oxycodone Screen Urine Not Detected (Not Detect); Phencyclidine Screen Urine Not Detected (Not Detect)
--- NOTE | 2024-03-26 22:51 | ED.GENADULT ---
HPI - General Adult General Chief complaint: General Medical Stated complaint: seeking detox, alcohol Time Seen by Provider: 03/26/24 22:51 History of Present Illness HPI narrative: The patient is a 48-year-old woman with a history of significant alcohol abuse and a diagnosis of cirrhosis. She has also had an episode of hepatic encephalopathy. Despite her problems she has been continuing to drink alcohol. She presented to the emergency room tonight by private vehicle looking for help with stopping her alcohol use. She says that she lives in a house with other alcohol drinkers and she is not able to manage to stop drinking where she is living. She admits to taking 5 nips and for alprazolam earlier tonight. Related Data Previous Rx's ?Medication ?Instructions ?Recorded trazodone 50 mg tablet 50 mg PO BEDTIME PRN for insomnia 10/10/23 90 days #90 tabs clonidine HCl 0.1 mg tablet 0.1 mg PO BEDTIME PRN anxiety #30 11/08/23 tabs sertraline 50 mg tablet 50 mg PO DAILY 90 days #90 tabs 01/11/24 folic acid 1 mg tablet 1 mg PO DAILY #30 tabs 02/05/24 naltrexone 50 mg tablet 50 mg PO DAILY #30 tabs 02/07/24 thiamine HCl (vitamin B1) 100 mg 100 mg PO DAILY #30 tabs 02/07/24 tablet lactulose 10 gram/15 mL oral 45 ml PO TID #12,150 mL 02/20/24 solution alprazolam 1 mg tablet 1 mg PO TID PRN anxiety #86 tabs 03/23/24 Allergies Allergy/AdvReac Type Severity Reaction Status Date / Time No Known Allergies Allergy Verified 03/26/24 22:07 [No Known Allergies*] Review of Systems Review of Systems: Yes all other systems are reviewed and are negative [facility] Past Medical History Medical History Alcohol intoxication 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 Mother No problems noted. Family/Other Substance use disorder Maternal Grandmother Ovarian cancer Maternal Aunt Ovarian cancer Social History Social History Household Members: Spouse Housing: House Do you presently have visiting nurse or other home services: No Alcohol intake: current Alcohol intake frequency: 3 or more drinks per day Alcohol type: hard liquor Patient Tobacco Use Status: Current everyday Tobacco user Tobacco use type: Cigarette Cigarettes Per Day: 15 Smoked in Last 30 Days: Yes e-Cigarette/Vaping Use: Never Used Second Hand Smoke Exposure: Yes Use of substances other than those prescribed or required for medical reasons: Refusing to respond Substance Use Type: Marijuana Advance Directives: No Advance Directives Information Provided: Yes Do you have a plan to hurt others: No Plan service: No Current occupational status: unemployed Cognitive needs: No Hearing needs: No Vision needs: No Physical Exam ED Vital Signs: Vital Signs - 24 hr 03/26/24 22:00 Temperature 97.5 F Pulse Rate 84 Respiratory Rate 17 Blood Pressure 112/76 Pulse Oximetry 96 Oxygen Delivery Method Room Air BMI result Body Mass Index 23.2 Const Other: Patient was asleep when I first encountered her. She seemed to be sleeping peacefully. She did not seem in distress. She looks like a chronically ill 48-year-old who was very tired. She seems somewhat disoriented at first when she awoke but then seemed to recall where she was. HENMT Other: Face is symmetrical, mucous membranes moist Eyes Other: Pupils are round equal, conjunctivae clear, no scleral icterus Neck Other: Moving her neck easily Resp Effort & Inspection: normal respiratory effort Auscultation: clear to auscultation bilaterally Cardio Rate: regular rate Rhythm: regular rhythm Heart sounds: S1 normal heart sound present and S2 normal heart sound present GI Other: Abdomen is mildly protuberant. No definite signs of ascites. No marked tenderness. Skin Other: Skin is pale and dry Neuro Other: Patient was sleepy and seemed somewhat sedated. No definite encephalopathy. Cranial nerves were grossly intact. She moves her extremities symmetrically. Extrem Other: No peripheral edema Medical Decision Making Medical Decision Making MDM Narrative: The patient is a 48-year-old woman with a history of alcoholic liver disease who presented initially requesting healthcare related to detox so that she could stop using alcohol. She had had a fair amount of alcohol just prior to arrival and she also said she had taken for alprazolam. She was quite sleepy. She was observed for a few hours and then she woke up and recanted her interest in staying in the emergency room for assistance getting into detox. We asked her to get a sober ride home. She was able to contact someone who came to the emergency room and she will be discharged with the person who came to pick her up. Lab Data 03/26/24 22:30 03/26/24 22:30 Labs: Lab Results 03/26/24 03/26/24 03/26/24 Range/Units 22:30 22:35 23:15 WBC 8.5 (4.8-10.8) X10*3/uL RBC 4.42 D (4.20-5.50) X10*6/uL Hgb 15.6 D (12.0-16.0) g/dl Hct 45.4 D (37.0-47.0) % MCV 102.7 H (80.0-98.0) fL MCH 35.3 H (27.0-33.0) pg MCHC 34.4 (31.0-35.0) g/dl RDW 13.4 (11.0-16.0) % Plt Count 266 D (160-400) X10*3/uL MPV 11.1 (9.4-12.3) fL Immature Gran % (Auto) 0.1 (0.0-0.4) % Neut % (Auto) 43.2 L (45-73) % Lymph % (Auto) 46.9 H (20-40) % [place] % (Auto) 6.1 (2-11) % Eos % (Auto) 2.8 (0-4) % Baso % (Auto) 0.9 (0-2) % Lymph # (Auto) 4.0 (1.2-4.9) X10*3/uL [place] # (Auto) 0.5 (0.1-1.2) X10*3/uL Eos # (Auto) 0.2 (0.0-0.4) X10*3/uL Baso # (Auto) 0.1 (0.0-0.2) X10*3/uL Abs Immat Gran (auto) 0.01 (0.00-0.03) X10*3/uL Absolute Neuts (auto) 3.7 (2.0-8.3) x10*3/uL Absolute Nucleated RBC 0.000 (0.0-0.012) X10*3/uL Nucleated RBC % (auto) 0.0 (0.0-0.2) /100WBC PT 13.2 (11.1-13.3) SEC INR 1.1 (0.9-1.1) Sodium 145 (135-145) mmol/L Potassium 3.2 L (3.3-5.1) mmol/L Chloride 107 (96-108) mmol/L Carbon Dioxide 27 (22-29) mmol/L Anion Gap 14 (12-20) BUN 5 L (9-16) mg/dL Creatinine 0.77 (0.5-1.4) mg/dL Estim Creat Clear Calc 75.4 Estimated GFR > 60 Random Glucose 96 (60-115) mg/dL Calcium 9.5 D (8.4-10.2) mg/dL Total Bilirubin 0.5 (0.0-1.0) mg/dL AST 53 H (5-31) U/L ALT 26 (0-31) U/L Alkaline Phosphatase 116 (39-117) U/L Ammonia 43 (13-55) umol/L Total Protein 8.5 H (6.5-8.0) g/dL Albumin 4.3 (3.5-5.0) g/dL Lipase 34 (8-78) U/L Urine Color Yellow Urine Appearance Clear Urine pH 7.0 (5.0-9.0) Ur Specific [place] <= 1.005 (1.005-1.025) Urine Protein Negative (Neg-Trace) mg/dL Urine Glucose (UA) Negative (Negative) mg/dL Urine Ketones Negative (Negative) mg/dL Urine Blood Negative (Negative) Urine Nitrite Negative (Negative) Ur Leukocyte Esterase Negative (Negative) Urine Opiates Screen Not Detected (Not Detect) Ur Buprenorphine Scrn Not Detected (Not Detect) ng/mL Ur Oxycodone Screen Not Detected (Not Detect) ng/mL Urine Methadone Screen Not Detected (Not Detect) ng/mL Urine Fentanyl Screen Not Detected (Not Detect) Ur Barbiturates Screen Not Detected (Not Detect) Ur Phencyclidine Scrn Not Detected (Not Detect) Ur Amphetamines Screen Not Detected (Not Detect) U Benzodiazepines Scrn POSITIVE H (Not Detect) Urine Cocaine Screen Not Detected (Not Detect) U Marijuana (THC) Screen Not Detected (Not Detect) Ethyl Alcohol 273 mg/dL Discharge Plan Discharge Clinical Impression: Alcohol use disorder Patient Disposition: Home, Self-Care Additional Instructions: I think going to detox to try to stop using alcohol would be a good thing to do to help your liver. Please contact the detox services on the list provided in the morning. Also follow up with your regular doctor. Return to the emergency room if worse. Prescriptions: No Action trazodone 50 mg tablet 50 mg PO BEDTIME PRN (Reason: for insomnia) 90 Days Qty: 90 1RF clonidine HCl 0.1 mg tablet 0.1 mg PO BEDTIME PRN (Reason: anxiety) Qty: 30 5RF sertraline 50 mg tablet 50 mg PO DAILY 90 Days Qty: 90 1RF lactulose 10 gram/15 mL solution 45 ml PO TID Qty: 85980 0RF alprazolam 1 mg tablet 1 mg PO TID PRN (Reason: anxiety) Qty: 86 0RF folic acid 1 mg Tablet 1 mg PO DAILY Qty: 30 0RF thiamine HCl (vitamin B1) 100 mg tablet 100 mg PO DAILY Qty: 30 0RF naltrexone 50 mg tablet 50 mg PO DAILY Qty: 30 0RF Rx Instructions: Take 1/2 tab for the first 3 days, progress to full tab on day 4 if well tolerated Referrals: Joan Torres MD [Primary Care Provider] - (Alcohol use disorder) Print Language: Tunisian
[2024-03-26 22:53] LABS: Alanine Aminotransferase 26 U/L (0-31); Albumin Level 4.3 g/dL (3.5-5.0); Alkaline Phosphatase 116 U/L (39-117); Anion Gap 14 (12-20); Aspartate Amino Transferase 53 U/L (5-31); Bilirubin Total 0.5 mg/dL (0.0-1.0); Blood Urea Nitrogen 5 mg/dL (9-16); Calcium 9.5 mg/dL (8.4-10.2); Carbon Dioxide 27 mmol/L (22-29); Chloride 107 mmol/L (96-108); Creatinine Clr Calc Pharmacy 75.4; Estimated Glomerular Filt Rate > 60; Ethanol 273 mg/dL; Glucose Random 96 mg/dL (60-115); Lipase 34 U/L (8-78); Potassium 3.2 mmol/L (3.3-5.1); Sodium 145 mmol/L (135-145); Total Protein 8.5 g/dL (6.5-8.0)
[2024-03-26 23:02] LABS: Appearance Urine Clear; Color Urine Yellow; Glucose Urine UA Negative (Negative); Leukocyte Esterase Urine Negative (Negative); Nitrite Urine Negative (Negative); Specific Gravity - Urine <= 1.005 (1.005-1.025); Urine Blood Negative (Negative); Urine Ketones Negative (Negative); Urine Protein Negative (Neg-Trace)
[2024-03-26 23:02] LABS: Basophils Absolute Auto 0.1 X10*3/uL (0.0-0.2); Basophils Percent Auto 0.9 % (0-2); Eosinophils Absolute Auto 0.2 X10*3/uL (0.0-0.4); Eosinophils Percent Auto 2.8 % (0-4); Hematocrit 45.4 % (37.0-47.0); Hemoglobin 15.6 g/dl (12.0-16.0); Imm Gran Abs Auto 0.01 X10*3/uL (0.00-0.03); Imm Gran Pct Auto 0.1 % (0.0-0.4); Lymphocytes Percent Auto 46.9 % (20-40); Mean Corpuscular HGB Conc 34.4 g/dl (31.0-35.0); Mean Corpuscular Hemoglobin 35.3 pg (27.0-33.0); Mean Corpuscular Volume 102.7 fL (80.0-98.0); Mean Platelet Volume 11.1 fL (9.4-12.3); Monocytes Absolute Auto 0.5 X10*3/uL (0.1-1.2); Monocytes Percent Auto 6.1 % (2-11); Neutrophils Absolute Auto 3.7 x10*3/uL (2.0-8.3); Neutrophils Percent Auto 43.2 % (45-73); Platelet Count 266 X10*3/uL (160-400); Red Blood Count 4.42 X10*6/uL (4.20-5.50); Red Cell Distribution Width 13.4 % (11.0-16.0); White Blood Count 8.5 X10*3/uL (4.8-10.8)
[2024-03-26 23:28] LABS: Ammonia 43 umol/L (13-55)
[2024-03-26 23:29] LABS: INTERNATIONAL NORM RATIO 1.1 (0.9-1.1); Prothrombin Time 13.2 SEC (11.1-13.3)
--- NOTE | 2024-03-27 01:45 | PC.NURSE ---
Pt continuously asking to leave, says she wants to go home, is not si/hi, ambulates with a steady gait. per MD Aguilar as long as pt has sober ride show up she can safely be discharged home.
[2024-03-27 02:09] VITALS: BP 112/76; PULSE 84; RESP 17; TEMP 36.4; O2SAT 96
== END 2024-03-27 02:05 | disposition home or self-care (01) ==
PROVIDERS: Emergency Provider Emergency Medicine; PCP Internal Medicine
DX: F10.10 Alcohol abuse, uncomplicated (principal); Y90.8 Blood alcohol level of 240 mg/100 ml or more; K70.9 Alcoholic liver disease, unspecified
CPT/HCPCS: 36415; 80053; 80307; 81003; 82140; 83690; 85025; 85610; 99284

== ENCOUNTER 2024-03-28 19:15 | Emergency (ER) | payer MEDICARE, MEDICAID, SELFPAY ==
--- NOTE | 2024-03-28 19:23 | ED_ITS ---
HPI - General Adult General Chief complaint: ETOH/Substance Use Stated complaint: seeking detox Time Seen by Provider: 03/28/24 22:19 Source: patient, RN notes reviewed and old records reviewed Mode of arrival: ambulatory Limitations: no limitations History of Present Illness ED Provider: Anna MARISCAL narrative: 48-year-old female presents for evaluation of seeking detox. History of fatty liver and liver cirrhosis secondary to alcohol abuse She reports drinking 10 nips daily She states that she has been to numerous detox facilities in the past that ?just do not work. ? Patient initially states that she is seeking detox and then changes her mind and states that she wants to leave She denies suicidality But I brought up to her that she reported having abdominal pain to nursing she states that she has no more abdominal pain. Denies any fevers, chills, nausea, vomiting Related Data Previous Rx's ?Medication ?Instructions ?Recorded trazodone 50 mg tablet 50 mg PO BEDTIME PRN for insomnia 10/10/23 90 days #90 tabs clonidine HCl 0.1 mg tablet 0.1 mg PO BEDTIME PRN anxiety #30 11/08/23 tabs sertraline 50 mg tablet 50 mg PO DAILY 90 days #90 tabs 01/11/24 folic acid 1 mg tablet 1 mg PO DAILY #30 tabs 02/05/24 naltrexone 50 mg tablet 50 mg PO DAILY #30 tabs 02/07/24 thiamine HCl (vitamin B1) 100 mg 100 mg PO DAILY #30 tabs 02/07/24 tablet lactulose 10 gram/15 mL oral 45 ml PO TID #12,150 mL 02/20/24 solution alprazolam 1 mg tablet 1 mg PO TID PRN anxiety #86 tabs 03/23/24 Allergies Allergy/AdvReac Type Severity Reaction Status Date / Time No Known Allergies Allergy Verified 03/28/24 19:27 [No Known Allergies*] Review of Systems 2 Constitutional: Constitutional: Denies body ache(s), Denies chills, Denies fever(s) and Denies headache(s) Eyes: Eyes: Denies blurry vision ENT: Denies headache(s) and Denies sore throat Cardiovascular: Cardiovascular: Denies chest pain and Denies dyspnea Respiratory: Respiratory: Denies cough and Denies dyspnea Gastrointestinal: Gastrointestinal: Reports abdominal pain, Denies nausea and Denies vomiting Musculoskeletal: Musculoskeletal: Denies back pain Integumentary/Breasts: Skin/Breast: Denies rash Neurologic: Denies headache(s) Psychiatric: Psychiatric: Denies anxiety, Denies auditory hallucinations and Denies suicidal ideation PMFSH Past Medical History Medical History Alcohol intoxication 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 Mother No problems noted. Family/Other Substance use disorder Maternal Grandmother Ovarian cancer Maternal Aunt Ovarian cancer Social History Social History Household Members: Spouse Housing: House Do you presently have visiting nurse or other home services: No Alcohol intake: current Alcohol intake frequency: 3 or more drinks per day Alcohol type: hard liquor Patient Tobacco Use Status: Current everyday Tobacco user Tobacco use type: Cigarette Cigarettes Per Day: 15 Smoked in Last 30 Days: No e-Cigarette/Vaping Use: Never Used Second Hand Smoke Exposure: Yes Use of substances other than those prescribed or required for medical reasons: No Substance Use Type: Marijuana Advance Directives: No Advance Directives Information Provided: No Do you have a plan to hurt others: No Plan Patient : No service: No Current occupational status: unemployed Cognitive needs: No Hearing needs: No Vision needs: No Physical Exam ED Vital Signs: Vital Signs - 24 hr 03/28/24 19:25 03/28/24 20:06 Temperature 97.5 F 98.0 F Pulse Rate 84 79 Respiratory Rate 18 18 Blood Pressure 137/85 118/78 Pulse Oximetry 98 97 Oxygen Delivery Method Room Air Room Air BMI result Body Mass Index 23.0 Const General: healthy appearing, comfortable, no acute distress, alert and awake Nutritional Appearance: well nourished Orientation/consciousness: patient oriented x3 HENMT Head: Yes normocephalic and Yes atraumatic Eyes Eyelids: Yes eyelids normal Conjunctivae: conjunctivae normal Sclerae: sclerae normal Corneas: corneas normal Pupils: Equal, round and reactive pupils present EOM: EOMs intact bilaterally Neck Neck: Yes full ROM Resp Effort & Inspection: normal respiratory effort, able to speak in complete sentences, no audible wheezes and not labored Auscultation: clear to auscultation bilaterally Cardio Rate: regular rate Rhythm: regular rhythm GI Inspection: No distended Palpation (GI): Soft to palpation, not firm, nontender, no guarding and not rigid Skin General skin exam: elasticity normal Neuro General: patient oriented x3 Cranial nerves: Yes Equal, round and reactive pupils present and Yes Bilaterally intact EOM present Cognition (Neuro): normal cognition Extrem Other: Moving all extremities well without any obvious deformities Course Course Course Narrative: This is an RME done by MICHAEL Lechuga: Additional HPI, ROS, PE not included below will be deferred to primary provider. 48 year old female pmh of hepatic encephalopathy, alcohol withdrawal syndrome, uncontrolled HTN, alcoholism, alcoholic cirrhosis, tobacco use disorder, and eating disorder, anxiety, depression presents with concern that her PCP told her she has chronic liver disease and has 3 months to live if I do not stop drinking, but I cannot stop. States she does not have the support she needs. Patient reports drinking 10 nips per day, green diarrhea, vomiting, and anorexia. Admits to thoughts of hurting herself but not hurting others. She admits she has attempted overdose and cutting her wrists. States she is scared and wants to just get better . Patient states need for patient registrar. Patient has abdominal pain currently as well which she rates as a 7/10. Appearance: Alert.? Oriented X3.? No acute cardiopulmonary distress distress.?Walking with a staggered gait. Head: Normocephalic, atraumatic, no step-offs or deformities Neck: Normal inspection.? Neck supple.? CVS: Pulses normal.? Respiratory: No respiratory distress.? Abdomen: Distended abdomen. Skin: ? Normal skin color. Extremities: 5/5 strength to bilateral upper and lower extremities Neuro: Oriented X 3.? No motor deficit.? No sensory deficit. Medical Decision Making Medical Decision Making MDM Narrative: 48-year-old female presents for evaluation of detox. She initially reported abdominal pain but denies this to me. Shortly after my evaluation the patient changed her mind and states that she wants to leave. She states that detox does not work for her and she wants to leave. She continues to stop every staff that walks by and request discharge. She reports that she can get a sober ride home. She ambulates with a steady, even gait. I tried to attempt to convince the patient to stay for detox evaluation and consideration given her significant comorbidities related to alcohol. The patient continues to demand discharge and I do not see any reason to hold the patient against her will. She does have alcohol in her system, however she is awake, alert and oriented, clear sensorium and ambulating with a steady, even gait. Differential Diagnosis Differential Diagnoses: The differential diagnosis associated with the presentation includes Alcohol abuse Detox Abdominal pain Gastritis Pancreatitis Lab Data MDM Lab Attestation statement: I reviewed the patient's lab results. No leukocytosis or anemia. Normal platelet count. Patient's sodium is slightly elevated to 147 which may be related to alcohol abuse. Potassium is within normal limits, chloride is slightly above normal at 109 but without significant abnormality. Patient's CO2 is within normal limits, renal function is within normal limits. Random glucose is 104. Lipase is normal at 39. The patient does have a mild transaminitis with no history of alcoholic liver disease 03/28/24 19:36 03/28/24 19:36 Labs: Lab Results 03/28/24 03/28/24 Range/Units 19:36 19:39 WBC 8.5 (4.8-10.8) X10*3/uL RBC 4.19 L (4.20-5.50) X10*6/uL Hgb 14.7 (12.0-16.0) g/dl Hct 42.6 (37.0-47.0) % MCV 101.7 H (80.0-98.0) fL MCH 35.1 H (27.0-33.0) pg MCHC 34.5 (31.0-35.0) g/dl RDW 13.2 (11.0-16.0) % Plt Count 215 (160-400) X10*3/uL MPV 10.8 (9.4-12.3) fL Immature Gran % (Auto) 0.2 (0.0-0.4) % Neut % (Auto) 46.6 (45-73) % Lymph % (Auto) 42.4 H (20-40) % [place] % (Auto) 6.1 (2-11) % Eos % (Auto) 3.5 (0-4) % Baso % (Auto) 1.2 (0-2) % Lymph # (Auto) 3.6 (1.2-4.9) X10*3/uL [place] # (Auto) 0.5 (0.1-1.2) X10*3/uL Eos # (Auto) 0.3 (0.0-0.4) X10*3/uL Baso # (Auto) 0.1 (0.0-0.2) X10*3/uL Abs Immat Gran (auto) 0.02 (0.00-0.03) X10*3/uL Absolute Neuts (auto) 3.9 (2.0-8.3) x10*3/uL Absolute Nucleated RBC 0.000 (0.0-0.012) X10*3/uL Nucleated RBC % (auto) 0.0 (0.0-0.2) /100WBC Sodium 147 H (135-145) mmol/L Potassium 3.3 (3.3-5.1) mmol/L Chloride 109 H (96-108) mmol/L Carbon Dioxide 28 (22-29) mmol/L Anion Gap 13 (12-20) BUN 7 L (9-16) mg/dL Creatinine 0.80 (0.5-1.4) mg/dL Estim Creat Clear Calc 72.6 Estimated GFR > 60 Random Glucose 104 (60-115) mg/dL Calcium 9.6 (8.4-10.2) mg/dL Magnesium 2.3 (1.6-2.6) mg/dL Total Bilirubin 0.4 (0.0-1.0) mg/dL AST 60 H (5-31) U/L ALT 28 (0-31) U/L Alkaline Phosphatase 129 H (39-117) U/L Total Protein 8.3 H (6.5-8.0) g/dL Albumin 4.2 (3.5-5.0) g/dL Lipase 39 (8-78) U/L Urine Color Yellow Urine Appearance Clear Urine pH 7.0 (5.0-9.0) Ur Specific [place] <= 1.005 (1.005-1.025) Urine Protein Negative (Neg-Trace) mg/dL Urine Glucose (UA) Negative (Negative) mg/dL Urine Ketones Negative (Negative) mg/dL Urine Blood Negative (Negative) Urine Nitrite Negative (Negative) Ur Leukocyte Esterase Negative (Negative) Salicylates < 5.0 L (15-30) mg/dL Urine Opiates Screen Not Detected (Not Detect) Ur Buprenorphine Scrn Not Detected (Not Detect) ng/mL Ur Oxycodone Screen Not Detected (Not Detect) ng/mL Urine Methadone Screen Not Detected (Not Detect) ng/mL Urine Fentanyl Screen Not Detected (Not Detect) Acetaminophen < 3 (<30) mcg/mL Ur Barbiturates Screen Not Detected (Not Detect) Ur Phencyclidine Scrn Not Detected (Not Detect) Ur Amphetamines Screen Not Detected (Not Detect) U Benzodiazepines Scrn POSITIVE H (Not Detect) Urine Cocaine Screen Not Detected (Not Detect) U Marijuana (THC) Screen Not Detected (Not Detect) Ethyl Alcohol 280 mg/dL Discharge Plan Discharge Clinical Impression: Alcohol use disorder Patient Disposition: Home, Self-Care Instructions: Abuse of Alcohol (ED) Additional Instructions: Your addiction and care team but declined prior to receiving consideration for detox. Follow-up with your primary doctor, return for new or worsening symptoms or if you change your mind and decided that you do proceed with detox Prescriptions: No Action trazodone 50 mg tablet 50 mg PO BEDTIME PRN (Reason: for insomnia) 90 Days Qty: 90 1RF clonidine HCl 0.1 mg tablet 0.1 mg PO BEDTIME PRN (Reason: anxiety) Qty: 30 5RF sertraline 50 mg tablet 50 mg PO DAILY 90 Days Qty: 90 1RF lactulose 10 gram/15 mL solution 45 ml PO TID Qty: 50210 0RF alprazolam 1 mg tablet 1 mg PO TID PRN (Reason: anxiety) Qty: 86 0RF folic acid 1 mg Tablet 1 mg PO DAILY Qty: 30 0RF thiamine HCl (vitamin B1) 100 mg tablet 100 mg PO DAILY Qty: 30 0RF naltrexone 50 mg tablet 50 mg PO DAILY Qty: 30 0RF Rx Instructions: Take 1/2 tab for the first 3 days, progress to full tab on day 4 if well tolerated Print Language: French
[2024-03-28 19:25] VITALS: BP 137/85; PULSE 84; RESP 18; TEMP 36.4; O2SAT 98; BMI 23.0
[2024-03-28 19:43] LABS: MANUAL DIFF FLAG NO
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
[2024-03-28 19:56] LABS: Ethanol 280 mg/dL
[2024-03-28 19:58] LABS: Alanine Aminotransferase 28 U/L (0-31); Albumin Level 4.2 g/dL (3.5-5.0); Alkaline Phosphatase 129 U/L (39-117); Anion Gap 13 (12-20); Aspartate Amino Transferase 60 U/L (5-31); Basophils Absolute Auto 0.1 X10*3/uL (0.0-0.2); Basophils Percent Auto 1.2 % (0-2); Bilirubin Total 0.4 mg/dL (0.0-1.0); Blood Urea Nitrogen 7 mg/dL (9-16); Calcium 9.6 mg/dL (8.4-10.2); Carbon Dioxide 28 mmol/L (22-29); Chloride 109 mmol/L (96-108); Creatinine Clr Calc Pharmacy 72.6; Eosinophils Absolute Auto 0.3 X10*3/uL (0.0-0.4); Eosinophils Percent Auto 3.5 % (0-4); Estimated Glomerular Filt Rate > 60; Glucose Random 104 mg/dL (60-115); Hematocrit 42.6 % (37.0-47.0); Hemoglobin 14.7 g/dl (12.0-16.0); Imm Gran Abs Auto 0.02 X10*3/uL (0.00-0.03); Imm Gran Pct Auto 0.2 % (0.0-0.4); Lymphocytes Absolute Auto 3.6 X10*3/uL (1.2-4.9); Lymphocytes Percent Auto 42.4 % (20-40); Magnesium 2.3 mg/dL (1.6-2.6); Mean Corpuscular HGB Conc 34.5 g/dl (31.0-35.0); Mean Corpuscular Hemoglobin 35.1 pg (27.0-33.0); Mean Corpuscular Volume 101.7 fL (80.0-98.0); Mean Platelet Volume 10.8 fL (9.4-12.3); Monocytes Absolute Auto 0.5 X10*3/uL (0.1-1.2); Monocytes Percent Auto 6.1 % (2-11); Neutrophils Absolute Auto 3.9 x10*3/uL (2.0-8.3); Neutrophils Percent Auto 46.6 % (45-73); Platelet Count 215 X10*3/uL (160-400); Potassium 3.3 mmol/L (3.3-5.1); Red Blood Count 4.19 X10*6/uL (4.20-5.50); Red Cell Distribution Width 13.2 % (11.0-16.0); Sodium 147 mmol/L (135-145); Total Protein 8.3 g/dL (6.5-8.0); White Blood Count 8.5 X10*3/uL (4.8-10.8)
[2024-03-28 19:59] LABS: Acetaminophen LAB < 3 mcg/mL (<30); Salicylate < 5.0 mg/dL (15-30)
[2024-03-28 20:05] LABS: Appearance Urine Clear; Color Urine Yellow; Glucose Urine UA Negative (Negative); Leukocyte Esterase Urine Negative (Negative); Nitrite Urine Negative (Negative); Specific Gravity - Urine <= 1.005 (1.005-1.025); Urine Blood Negative (Negative); Urine Ketones Negative (Negative); Urine Protein Negative (Neg-Trace)
[2024-03-28 20:06] VITALS: BP 118/78; PULSE 79; RESP 18; TEMP 36.7; O2SAT 97
[2024-03-28 20:10] LABS: Amphetamine Screen Urine Not Detected (Not Detect); Barbiturates, Urine Not Detected (Not Detect); Benzodiazepines Screen Urine POSITIVE (Not Detect); Buprenorphine Scr Not Detected (Not Detect); Cannabinoid Screen Urine Not Detected (Not Detect); Cocaine Screen Urine Not Detected (Not Detect); Fentanyl, urine Not Detected (Not Detect); Methadone Screen, Urine Not Detected (Not Detect); Opiate Screen Urine Not Detected (Not Detect); Oxycodone Screen Urine Not Detected (Not Detect); Phencyclidine Screen Urine Not Detected (Not Detect)
--- NOTE | 2024-03-28 20:16 | PC.NURSE ---
pt belongings placed in locker 3 in POD.
[2024-03-28 22:39] LABS: Lipase 39 U/L (8-78)
--- NOTE | 2024-03-28 22:47 | PC.NURSE ---
pt denying SI and HI at this time, pt reporting she would like to go home, denies wanting detox at this time.
--- NOTE | 2024-03-28 23:35 | PC.NURSE ---
pt left without d.c instructions.
[2024-03-28 23:36] VITALS: BP 118/78; PULSE 79; RESP 18; TEMP 36.7; O2SAT 97
== END 2024-03-28 23:37 | disposition home or self-care (01) ==
PROVIDERS: Physician Assistant; Emergency Provider Emergency Medicine; PCP Internal Medicine
DX: F10.20 Alcohol dependence, uncomplicated (principal); Y90.8 Blood alcohol level of 240 mg/100 ml or more; K70.30 Alcoholic cirrhosis of liver without ascites; E11.9 Type 2 diabetes mellitus without complications; I10 Essential (primary) hypertension; F13.10 Sedative, hypnotic or anxiolytic abuse, uncomplicated; F12.90 Cannabis use, unspecified, uncomplicated; F17.210 Nicotine dependence, cigarettes, uncomplicated; Z79.899 Other long term (current) drug therapy
CPT/HCPCS: 36415; 80053; 80143; 80179; 80307; 81003; 83690; 83735; 85025; 99284; 99285

== ENCOUNTER 2024-04-01 20:36 | Emergency (ER) | payer MEDICARE, MEDICAID, SELFPAY ==
--- NOTE | ~2024-04-01 | XR_ITS ---
EXAMINATION: XR ANKLE, LEFT CLINICAL INFORMATION: Fall COMPARISON: 01/12/2021 TECHNIQUE: AP, lateral, and mortise views of the left ankle. FINDINGS: There is a mildly displaced fracture of the lateral malleolus with adjacent soft tissue swelling. Alignment across the ankle appears maintained. Distal tibia appears intact. XR/XR ankle LT 2V IMPRESSION: Mildly displaced fracture of the lateral malleolus.
[2024-04-01 20:45] VITALS: BP 128/64; PULSE 88; O2SAT 95
[2024-04-01 20:58] VITALS: BP 181/158; PULSE 94; RESP 17; TEMP 36.2; O2SAT 95; BMI 22.3
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
[2024-04-01 21:29] LABS: MANUAL DIFF FLAG NO
[2024-04-01 21:30] LABS: Basophils Percent Auto 0.6 % (0-2); Eosinophils Absolute Auto 0.2 X10*3/uL (0.0-0.4); Eosinophils Percent Auto 2.2 % (0-4); Hematocrit 41.9 % (37.0-47.0); Hemoglobin 14.2 g/dl (12.0-16.0); Imm Gran Abs Auto 0.02 X10*3/uL (0.00-0.03); Imm Gran Pct Auto 0.3 % (0.0-0.4); Lymphocytes Absolute Auto 3.2 X10*3/uL (1.2-4.9); Lymphocytes Percent Auto 45.5 % (20-40); Mean Corpuscular HGB Conc 33.9 g/dl (31.0-35.0); Mean Corpuscular Hemoglobin 34.9 pg (27.0-33.0); Mean Corpuscular Volume 102.9 fL (80.0-98.0); Mean Platelet Volume 11.2 fL (9.4-12.3); Monocytes Absolute Auto 0.4 X10*3/uL (0.1-1.2); Monocytes Percent Auto 6.2 % (2-11); Neutrophils Absolute Auto 3.1 x10*3/uL (2.0-8.3); Neutrophils Percent Auto 45.2 % (45-73); Platelet Count 167 X10*3/uL (160-400); Red Blood Count 4.07 X10*6/uL (4.20-5.50); Red Cell Distribution Width 13.2 % (11.0-16.0); White Blood Count 6.9 X10*3/uL (4.8-10.8)
--- NOTE | 2024-04-01 21:37 | PC.NURSE ---
at bedside to assess pt.
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
--- NOTE | 2024-04-01 21:47 | PC.NURSE ---
security at bedside to assist pt to xray at this time.
[2024-04-01 21:55] LABS: Alanine Aminotransferase 36 U/L (0-31); Albumin Level 4.1 g/dL (3.5-5.0); Alkaline Phosphatase 125 U/L (39-117); Anion Gap 15 (12-20); Aspartate Amino Transferase 93 U/L (5-31); Bilirubin Total 0.3 mg/dL (0.0-1.0); Blood Urea Nitrogen 3 mg/dL (9-16); Calcium 9.4 mg/dL (8.4-10.2); Carbon Dioxide 27 mmol/L (22-29); Chloride 107 mmol/L (96-108); Creatinine Clr Calc Pharmacy 78.5; Estimated Glomerular Filt Rate > 60; Ethanol 340 mg/dL; Glucose Random 124 mg/dL (60-115); Potassium 3.2 mmol/L (3.3-5.1); Sodium 146 mmol/L (135-145)
--- NOTE | 2024-04-01 23:56 | PC.NURSE ---
pt assisted to bathroom at this time, pt unable to bare weight on left leg without pain.
[2024-04-02 01:37] VITALS: BP 111/80; PULSE 94; RESP 17; TEMP 36.9; O2SAT 99
[2024-04-02 01:41] VITALS: BP 111/80; PULSE 94; RESP 17; TEMP 36.9; O2SAT 99
== END 2024-04-02 01:42 | disposition home or self-care (01) ==
PROVIDERS: Emergency Provider Emergency Medicine
DX: S82.62XA Displaced fracture of lateral malleolus of left fibula, initial encounter for closed fracture (principal); W10.9XXA Fall (on) (from) unspecified stairs and steps, initial encounter; Y93.9 Activity, unspecified; Y92.9 Unspecified place or not applicable; Y99.9 Unspecified external cause status; F10.129 Alcohol abuse with intoxication, unspecified; Y90.8 Blood alcohol level of 240 mg/100 ml or more; M25.572 Pain in left ankle and joints of left foot; Z79.899 Other long term (current) drug therapy
CPT/HCPCS: 36415; 73600; 80053; 80307; 85025; 99283; 99284

== ENCOUNTER 2024-04-20 07:43 | Outpatient (REF) | payer MEDICARE, MEDICAID, SELFPAY ==
--- NOTE | ~2024-04-20 | XR_ITS ---
EXAMINATION: XR ANKLE, LEFT CLINICAL INFORMATION: Pain. COMPARISON: Radiograph left ankle 04/01/2024. TECHNIQUE: AP, lateral, and mortise views of the left ankle. FINDINGS: Decreased displacement and improved alignment of a lateral malleolar fracture. No interval injuries. Ankle mortise is maintained. Decreased soft tissue swelling of the left ankle. XR/XR ankle LT min 3V IMPRESSION: Decreased displacement and improved alignment of a lateral malleolar fracture.
== END 2024-04-20 07:44 | disposition home or self-care (01) ==
LOC: HO.HOSX 07:43
PROVIDERS: Visit Provider Physician Assistant
DX: S82.62XA Displaced fracture of lateral malleolus of left fibula, initial encounter for closed fracture (principal); W10.9XXA Fall (on) (from) unspecified stairs and steps, initial encounter; Y93.9 Activity, unspecified; Y92.9 Unspecified place or not applicable; Y99.9 Unspecified external cause status
CPT/HCPCS: 27786; 73610; 99202

== ENCOUNTER 2024-04-20 12:55 | Outpatient (AMB) | payer MEDICARE, MEDICAID, SELFPAY ==
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
[2024-04-20 13:18] VITALS: BMI 22.3
== END 2024-04-20 14:43 | disposition home or self-care (01) ==
PROVIDERS: Visit Provider Physician Assistant
DX: S82.62XA Displaced fracture of lateral malleolus of left fibula, initial encounter for closed fracture (principal); W10.8XXA Fall (on) (from) other stairs and steps, initial encounter
CPT/HCPCS: 27786; 99204

== ENCOUNTER 2024-05-17 10:29 | Outpatient (REF) | payer MEDICARE, MEDICAID, SELFPAY ==
--- NOTE | ~2024-05-17 | XR_ITS ---
EXAMINATION: XR ANKLE, LEFT CLINICAL INFORMATION: Pain COMPARISON: Prior x-rays latest 04/20/2024 TECHNIQUE: AP, lateral, and mortise views of the left ankle. FINDINGS: Stable position and alignment of the mildly displaced lateral malleolar fracture. Portion of the fracture plane remains visible. Mild ankle soft tissue swelling.. Ankle mortise is maintained. No new acute fractures seen. Plantar calcaneal spur. XR/XR ankle LT min 3V IMPRESSION: Stable position and alignment of the lateral malleolar fracture.
== END 2024-05-17 10:30 | disposition home or self-care (01) ==
LOC: HO.HOSX 10:29
PROVIDERS: Visit Provider Physician Assistant
DX: S82.62XD Displaced fracture of lateral malleolus of left fibula, subsequent encounter for closed fracture with routine healing (principal)
CPT/HCPCS: 73610; 99212

== ENCOUNTER 2024-05-17 11:10 | Outpatient (AMB) | payer MEDICARE, MEDICAID, SELFPAY ==
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
== END 2024-05-17 11:50 | disposition home or self-care (01) ==
PROVIDERS: Visit Provider Physician Assistant
DX: S82.62XA Displaced fracture of lateral malleolus of left fibula, initial encounter for closed fracture (principal)
CPT/HCPCS: 99024

== ENCOUNTER 2024-05-21 11:34 | Outpatient (AMB) | payer MEDICARE, MEDICAID, SELFPAY ==
[2024-05-21 11:37] VITALS: BP 133/92; PULSE 76; BMI 21.5
--- NOTE | 2024-05-21 11:37 | A.OFFVIS_ITS ---
Vital Signs 05/21/24 11:37 Height 5 ft 4 in Weight 125 lb BMI 21.5 BP 133/92 H Blood Pressure Location Lt brachial Position Sitting Pulse 76 Intake Visit Reasons: 3 month follow up Intake Note: Adelita presents in the office as a 3 month follow up. CC: she states that she is not having any concerns at this time. 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 Allergies No Known Allergies [No Known Allergies*] Allergy (Verified 05/21/24 11:37) HPI HPI 3 month follow up: Details: 48 yr old f being seen for f/u for alcoholic liver disease RECAP: She has been struggling with alcohol on and off had relapse to alcohol from 01/2020 and going back and forth with drinking takes mostly vodka nips LabS: A1At nml, LISA, SLA, SMA, Igg levels were nml, Hep A,B, C negative LFT nml 03/2022 LFT nml 02/20 apart from mild raised shelley phos, INR: 1, plst 290, h/H LFT 02/21: nml bili, INR 1.1, ild ASt, ALT elevation, alb 3.3 US 2020---cirrhosis, no free fluid US 08/2021-- liver appeared nml, normal portal flow US 04/2022- cirrhosis, no masses US 12/22--echogenic, lobulated liver, elastography 1.6 CT 02/21-- cirrhosis, non specific mild thickening of rectum, b/l avascular necrosis of femoral heads INTERIM: she is still drinking, 3-5 shots of vodka daily no abdominal pain no nausea no vomiting she broke her ankle and has cast on no blood in stool EXAM: GENERAL: The patient is well developed and nontoxic. VITAL SIGNS:see workflow HEENT: Nonicteric sclerae, PERRLA, EOMI. Oropharynx clear. Moist mucous membranes. Conjunctivae appear well perfused. No thyroid mass. CHEST: Chest wall is nontender. HEART: Regular rate and rhythm without murmurs. LUNGS: Clear to auscultation bilaterally. ABDOMEN: Soft, positive bowel sounds, nontender, no organomegaly.no flank tenderness SKIN: No rash, no excessive bruising, petechiae, or purpura. NEUROLOGIC: Cranial nerves II-XII intact without motor/sensory deficit. 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 Mother No problems noted. Family/Other Substance use disorder Maternal Grandmother Ovarian cancer Maternal Aunt Ovarian cancer Social History Household Members: Spouse Housing: House Do you presently have visiting nurse or other home services: No Alcohol intake: current Alcohol intake frequency: 3 or more drinks per day Alcohol type: hard liquor Patient Tobacco Use Status: Current everyday Tobacco user Tobacco use type: Cigarette Cigarettes Per Day: 15 e-Cigarette/Vaping Use: Never Used Second Hand Smoke Exposure: Yes Substance Use Type: Marijuana service: No Current occupational status: unemployed Cognitive needs: No Hearing needs: No Vision needs: No Female Reproductive History Menstrual Age of Menarche: 10 Assessment & Plan Assessment & Plan (1) Elevated LFTs: Code(s): R79.89 - Other specified abnormal findings of blood chemistry Category: Medical Plan: see above Orders: Orders Comprehensive Met. Panel Today K75.81 - Nonalcoholic steatohepatitis (TENORIO), R79.89 - Other specified abnormal findings of blood chemistry Magnesium Today R79.89 - Other specified abnormal findings of blood chemistry Coding Level of Care Code Est Pt Level 4 (44222) Diagnoses Elevated LFTs R79.89
== END 2024-05-21 12:33 | disposition home or self-care (01) ==
PROVIDERS: PCP Student in an Organized Health Care Education/Training Program; Visit Provider Internal Medicine Gastroenterology
DX: R79.89 Other specified abnormal findings of blood chemistry (principal)
CPT/HCPCS: 99214

== ENCOUNTER → 2024-05-21 11:34 | Outpatient (BNVA) | payer MEDICARE, MEDICAID, SELFPAY | PROVIDERS: PCP Student in an Organized Health Care Education/Training Program; Visit Provider Internal Medicine Gastroenterology | DX: R79.89 Other specified abnormal findings of blood chemistry (principal) | CPT/HCPCS: 99212 ==

== ENCOUNTER 2024-06-12 10:03 | Outpatient (REF) | payer MEDICARE, MEDICAID, SELFPAY | END 2024-06-12 10:04 | disposition home or self-care (01) | LOC: HO.HOSX 10:03 | PROVIDERS: Visit Provider Physician Assistant | DX: S82.62XA Displaced fracture of lateral malleolus of left fibula, initial encounter for closed fracture (principal); M25.579 Pain in unspecified ankle and joints of unspecified foot | CPT/HCPCS: 99212 ==

== ENCOUNTER 2024-06-12 13:40 | Outpatient (AMB) | payer MEDICARE, MEDICAID, SELFPAY ==
--- NOTE | 2024-06-12 13:53 | A.OFFVIS_ITS ---
Intake Visit Reasons: OV - left lateral malleolar fx, DOI 04/01/24 Intake Note: Adelita is a 48 year old female who presents today for a follow up for her left lateral malleolus fx, DOI 04/01/24. She states no pain or discomfort at the moment. PT is going well, she was mentioning that she should be put in a ankle lace up brace. Denies numbness and tingling. Allergies No Known Allergies [No Known Allergies*] Allergy (Verified 06/12/24 13:53) HPI HPI OV - left lateral malleolar fx, DOI 04/01/24: Details: 48-year-old female who presents in the office today for a follow-up of a left lateral malleolus fracture, which occurred on 04/01/2024 status post being found in the park intoxicated. I last saw the patient in the office on 05/17/24 when she was transitioned to a tall walking boot and instructed to progress to weight bearing as tolerated. She was referred to physical therapy to work on ROM and weaning out of the walking boot. ? ? While in the office today, the patient denies any pain or discomfort. She confirms attending physical therapy and states it is going well. She denies numbness or tingling. 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 Mother No problems noted. Family/Other Substance use disorder Maternal Grandmother Ovarian cancer Maternal Aunt Ovarian cancer Social History Household Members: Spouse Housing: House Do you presently have visiting nurse or other home services: No Alcohol intake: current Alcohol intake frequency: 3 or more drinks per day Alcohol type: hard liquor Patient Tobacco Use Status: Current everyday Tobacco user Tobacco use type: Cigarette Cigarettes Per Day: 15 e-Cigarette/Vaping Use: Never Used Second Hand Smoke Exposure: Yes Substance Use Type: Marijuana service: No Current occupational status: unemployed Cognitive needs: No Hearing needs: No Vision needs: No Female Reproductive History Menstrual Age of Menarche: 10 Review of Systems Const All systems reviewed & are unremarkable except as noted in HPI and below Physical Exam Const General: cooperative, healthy appearing and no acute distress Resp Effort & Inspection: normal respiratory effort and able to speak in complete sentences Cardio Rate: regular rate Peripheral pulses: Peripheral pulses 2+ throughout GI Palpation (GI): Soft to palpation Skin Lesions: no lesions Rashes: no rashes Extrem Other: Left ankle: Normal to inspection. No ecchymosis, erythema, or edema. No tenderness to palpation over the lateral malleolus. Able to perform dorsiflexion, plantarflexion, pronation, and supination with mild stiffness. Negative anterior drawer.?Sensation intact. Pedal pulse intact. ? Assessment & Plan Assessment & Plan (1) Fracture of left ankle, lateral malleolus: Code(s): S82.62XA - Displaced fracture of lateral malleolus of left fibula, initial encounter for closed fracture Category: Medical Plan Ms. Ibarra is a 48-year-old female who presents in the office today for a follow-up of a left lateral malleolus fracture, which occurred on 04/01/2024 status post being found in the park intoxicated. I last saw the patient in the office on 05/17/24 when she was transitioned to a tall walking boot and instructed to progress to weight bearing as tolerated. She was referred to physical therapy to work on ROM and weaning out of the walking boot. ? ? While in the office today, the patient denies any pain or discomfort. She confirms attending physical therapy and states it is going well. She denies numbness or tingling.? ? The patient will transition out of the tall walking boot into a lace up ankle brace, she was given off the shelf. She can wear this with activities PRN. She will continue with physical therapy until all sessions are complete. Follow-up will be PRN, or sooner if needed. ? Orders: Orders XR ankle LT min 3V Today M25.579 - Pain in unspecified ankle and joints of unspecified foot Patient Instructions: Scribed by carin Slaughter scribe, for Isabella Jo PA-C on 06/12/2024 at 1:45 pm, EST.? Coding Level of Care Code Est Pt Level 3 (27353) Diagnoses Fracture of left ankle, lateral malleolus S82.62XA
== END 2024-06-12 14:35 | disposition home or self-care (01) ==
PROVIDERS: PCP Internal Medicine; Visit Provider Physician Assistant
DX: S82.62XA Displaced fracture of lateral malleolus of left fibula, initial encounter for closed fracture (principal)
CPT/HCPCS: 99024

== ENCOUNTER 2024-06-13 12:00 | Outpatient (RCR) | payer MEDICARE, SELFPAY ==
--- NOTE | 2024-05-31 14:04 | MHC.PT.EP ---
[facility] [place] Office [place] Office [place] Office [address] Nataliia Whitaker [address] [phone] F: [phone] F: [phone] F: [phone] F: [phone] Physical Therapy Plan of Care Date of Evaluation: 05/31/24 Date of Surgery: N/A Diagnosis: displaced fx L fibula DOI 04/01/24 (RL) Assessment: pt is a 48 y/o female presenting to physical therapy w/ referring diagnosis of displaced fx L fibula DOI 04/01/24. Impairments include pain, decreased range of motion, decreased strength, impaired functional mobility, impaired postural awareness, and altered ambulation mechanics. pt is a good candidate for skilled PT due to age, potential remediation of impairments, typical disease/condition progression and prognosis, comorbidities, and motivation. pt would benefit from skilled PT intervention to provide a tailored strengthening and stretching exercise program, functional training, gait training, postural re-training, neuromuscular re-education, modalities as needed for pain, equipment safety demonstration. Frequency and Duration: The patient will be seen 2x/wk for 6 wks Short Term Goals: pt will be I w/ HEP to promote self-management of condition. pt will improve L ankle DF AROM to promote ease in tibial translation for sit<>stand transfers/stair navigation. Chcf Goals: pt will report a statistically significant improvement in self-reported outcome measure, LEFI, to promote return to PLOF. pt will ambulate >2600' w/o AD w/ reports of <3/10 L ankle pain to promote ease in access to community (ex. grocery shopping). Treatment Plan: Modalities to reduce pain, spasms and effusion. Manual therapy to restore motion and function. Therapeutic exercise to improve strength and flexibility. Neuromuscular re-education for posture and balance. Therapeutic activities to return to functional activities of daily living. Electronically signed by: Brooke Dove PT, DPT Please sign and return to therapist. Thank you for your referral.
--- NOTE | 2024-06-27 14:19 | MHC.PT.DC ---
[facility] [place] Office [place] Office [place] Office [address] Nataliia Whitaker [address] [phone] F: [phone] F: [phone] F: [phone] F: [phone] Physical Therapy Discharge Report Diagnosis: displaced fx L fibula DOI 04/01/24 (RL) Date of Surgery: N/A Date of Evaluation: 05/31/24 Date of Discharge: 06/27/24 Treatments to Date: 3 Cancellations to Date: 3 No Shows to Date: 3 Discharge Status: Visit Non-compliance Discharge Summary: The patient has no showed three consecutive appointments. Per [facility] Therapy attendance policy she is discharged for non-compliance. Per last treatment note on 06/13/24: Pt amb community amb w/ASO and only slight deviation at this time. Tightened up ASO 2* not laced up properly. Adelita required ski pole support w/[address] at 6 oclock position. Her current status is unknown. Electronically signed by: Brooke Dove PT, DPT Please sign and return to therapist. Thank you for your referral.
== END 2024-06-27 14:20 | disposition home or self-care (01) ==
LOC: HO.PT 12:00
PROVIDERS: PCP Internal Medicine; Visit Provider Physician Assistant
DX: S82.62XD Displaced fracture of lateral malleolus of left fibula, subsequent encounter for closed fracture with routine healing (principal)
CPT/HCPCS: 97110; 97112; 97161

== ENCOUNTER 2024-08-06 09:41 | Outpatient (AMB) | payer MEDICARE, SELFPAY ==
[2024-08-06 09:43] VITALS: BP 110/80; PULSE 78; O2SAT 97; BMI 23.5
--- NOTE | 2024-08-06 09:43 | MHC.PC.OV ---
Vital Signs 08/06/24 09:43 Height 5 ft 4 in Weight 137 lb 0.6 oz BMI 23.5 BP 110/80 Blood Pressure Location Lt brachial Position Sitting Pulse 78 Pulse Source Pulse Oximeter Pulse Oximetry (%) 97 Oxygen Delivery Method Room Air Intake Visit Reasons: pain in back Intake Note: pt c/o mid back pain radiating to lower back [id number] Allergies No Known Allergies [No Known Allergies*] Allergy (Verified 08/06/24 09:45) Medication List - Last Reconciled 08/06/24 by Araceli Stanley PA-C alprazolam 1 mg PO TID PRN clonidine HCl 0.1 mg PO BEDTIME PRN folic acid 1 mg PO DAILY lactulose 45 mL PO TID sertraline 50 mg PO DAILY 90 days thiamine HCl (vitamin B1) (Vitamin B-1) 100 mg PO DAILY trazodone 50 mg PO BEDTIME PRN 90 days Tobacco use date assessed: 08/06/24 Dental Screening Dental Screen Date: 08/06/24 Did you have a dental visit in the last 12 months?: No Did you have a dental problem in the last 6 months where you did not have access to dental care?: No HPI pain in back HPI Details 48-year-old female with past medical history of anxiety, tobacco use disorder, alcohol use disorder with alcoholic cirrhosis, depression, urge incontinence, hypertension last seen by nurse practitioner coming in for acute problem.? In review of the notes, patient was seen in [facility] 06/19/2024 for detox from alcohol abuse.? She was seen by Orthopedics May 2024 for lateral malleolar fracture referred to physical therapy and weaning out of walking boot.? She was seen by GI 05/21/2024 for liver disease ordered labs and advised to follow up.? She was also admitted briefly [place] [facility] [place] 2024 related to alcohol abuse. Today she tells us she has been having 6 months of intermittent mid back pain. The pain starts in the middle of the back and radiates to the low back and up into the neck and shoulders. The episodes last about 30 seconds and resolve spontaneously. There is no specific time of day and this will occasionally happen at night and no identifiable triggers. Episodes occur 2-3x per week and have increased in frequency and intensity. Denies any other associated symptoms and pain does not radiate down the leg. 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 Mother No problems noted. Family/Other Substance use disorder Maternal Grandmother Ovarian cancer Maternal Aunt Ovarian cancer Social History Household Members: Spouse Housing: House Do you presently have visiting nurse or other home services: No Alcohol intake: current Alcohol intake frequency: 3 or more drinks per day Alcohol type: hard liquor Patient Tobacco Use Status: Current everyday Tobacco user Tobacco use type: Cigarette Cigarettes Per Day: 15 e-Cigarette/Vaping Use: Never Used Second Hand Smoke Exposure: Yes Substance Use Type: Marijuana service: No Current occupational status: unemployed Cognitive needs: No Hearing needs: No Vision needs: No Female Reproductive History Menstrual Age of Menarche: 10 Questionnaire PHQ-9 Over the last 2 weeks, how often have you been bothered by any of the following problems? 1. Little interest or pleasure in doing things: nearly every day 2. Feeling down, depressed, or hopeless: nearly every day 3. Trouble falling or staying asleep, or sleeping too much: nearly every day 4. Feeling tired or having little energy: nearly every day 5. Poor appetite or overeating: nearly every day 6. Feeling bad about yourself - or that you are a failure or have let yourself or your family down: nearly every day 7. Trouble concentrating on things, such as reading the newspaper or watching television: nearly every day 8. Moving or speaking so slowly that other people could have noticed. Or the opposite - being so fidgety or restless that you have been moving around a lot more than usual: nearly every day 9. Thoughts that you would be better off or of hurting yourself in some way: several days Total score: 25 Depression Screening Interpretation: Positive Depression Screening Follow-up: Declines treatment Depression Screening Done: Yes 03002 - PHQ-9 Billing: Yes Source: Developed by Drs. Shubham Wellington, Alecia Dunlap, Newton Medina and colleagues, with an educational nafisa from [employer]. Thrive Questionnaire Date Thrive assessed: 02/03/24 Are you currently unemployed and looking for a job?: Yes AUDIT C Alcohol Use Questionnaire (AUDIT-C) 2. How many drinks containing alcohol do you have on a typical day when you are drinking?: 1 or 2 3. How often do you have six or more drinks on one occasion?: Less than monthly Total Score: 1 BASIL-7 AMB Questionnaire BASIL-7 Date BASIL - 7 assessed: 08/06/24 Feeling nervous, anxious, or on edge: 1 = Several days Not being able to stop or control worryin = Several days Worrying too much about different things: 1 = Several days Trouble relaxin = Several days Being so restless that it is hard to sit still: 1 = Several days Becoming easily annoyed or irritable: 1 = Several days Feeling afraid as if something awful might happen: 1 = Several days Total BASIL-7 score (0-4 normal; 5-9 mild; 10-14 moderate; 15-21 severe): 7 Source: Developed by Drs. Shubham Wellington, Alecia Dunlap, Newton Medina and colleagues, with an educational nafisa from [employer]. BASIL-7 Assessment Billing BASIL-7 Assessment Tool: BASIL-7 Assessment 10504 Review of Systems Const Denies body aches, Denies chills, Denies fatigue and Denies fever(s) Eyes Reports no additional complaints ENT Reports no additional complaints Card Denies chest pain, Denies syncope, Denies irregular heart rhythm, Denies leg edema, Denies lightheadedness and Denies dyspnea Resp Denies dyspnea GI Denies abdominal pain, Denies diarrhea, Denies nausea and Denies vomiting Denies dysuria, Denies urinary incontinence, Denies urinary hesitancy and Denies urinary urgency Musc Reports as per HPI Skin/Breast Reports system reviewed and no additional complaints, except as documented Neuro Denies syncope Endo Denies fatigue Physical exam (Primary Care) Vital Signs: Last Vital Signs Pulse 78 08/06/24 09:43 BP 110/80 08/06/24 09:43 Pulse Ox 97 08/06/24 09:43 Oxygen Delivery Method Room Air 08/06/24 09:43 BMI result Body Mass Index 23.5 Tobacco/Smoking Status: Tobacco use Status Tobacco use date assessed 08/06/24 08/06/24 09:47 Patient Tobacco Use Status Current everyday Tobacco 08/06/24 09:47 Tobacco use type Cigarette 08/06/24 09:47 e-Cigarette/Vaping Use Never Used 08/06/24 09:47 PHQ-9: PHQ-9 Score PHQ-9: Total score 25 08/06/24 09:47 Depression Screening Interpretation: Positive Depression Screening Follow-up: Declines treatment Thrive Assessment: Date of Thrive Assessment Date Thrive assessed 02/03/24 08/06/24 09:47 Const General: cooperative, healthy appearing, comfortable and no acute distress Orientation/consciousness: patient oriented x3 HENMT Head: Yes normocephalic Ears: hearing grossly normal bilaterally General nose exam: Normal external nose present Eyes General: appearance normal, both eyes and all related structures Conjunctivae: conjunctivae normal Neck Neck: Yes full ROM and Yes no lymphadenopathy Resp Effort & Inspection: normal respiratory effort Auscultation: clear to auscultation bilaterally, no crackles, no rales, no rhonchi and no wheezes Cardio Rate: regular rate Rhythm: regular rhythm GI Inspection: No abdominal wall ecchymosis and No Abdominal wall edema Palpation (GI): Soft to palpation, not firm, nontender, no guarding, not rigid and Hepatomegaly present (Palpable liver border) General: Yes no CVA tenderness Back/Spine/Pelvis Other: No pain to palpation of spine or paraspinous muscles Back: no CVA tenderness Skin General skin exam: no rashes or lesions noted Neuro General: patient oriented x3 Gait exam (Neuro): Normal gait present Extrem Other: Tenderness to palpation of superior aspect of bilateral trapezius muscles General: Yes normal to inspection, Yes full ROM and No edema Psych Affect: normal affect Attitude: cooperative Insight: Good insight present (Psych) Judgement: Good judgement present (Psych) Coding Level of Care Code Est Pt Level 3 (48976) Diagnoses Mid back pain M54.9 Fracture of left ankle, lateral malleolus S82.62XA Alcoholic cirrhosis of liver without ascites K70.30 Ascites presence: without ascites Additional Codes BASIL-7 Assessment Billing - BASIL-7 Assessment Tool: BASIL-7 Assessment 98412 ([id number]) Assessment & Plan Assessment & Plan (1) Mid back pain: Code(s): M54.9 - Dorsalgia, unspecified Category: Medical Plan: Ordered for thoracic spine x-ray and urinalysis for further evaluation. Patient was given muscle relaxer to use as needed for nighttime pain. Discussed if results are negative consider physical therapy. Patient has declined physical therapy referral at this time. (2) Fracture of left ankle, lateral malleolus: Code(s): S82.62XA - Displaced fracture of lateral malleolus of left fibula, initial encounter for closed fracture Category: Medical Plan: Continue to follow up with Orthopedics. Patient is weight-bearing as tolerated without current use of the boot. (3) Alcoholic cirrhosis: Code(s): K70.30 - Alcoholic cirrhosis of liver without ascites Category: Medical Qualifiers: Ascites presence: without ascites Qualified Code(s): K70.30 - Alcoholic cirrhosis of liver without ascites Plan: Liver enzymes elevated on last lab work. Continue to follow with Gastroenterology. Plan This note was constructed using voice recognition software. While every effort has been made to ensure accuracy and civil division commander deputy sheriff, still areas may have been included sometimes these areas may affect the content or meeting of the given symptoms. Total time spent caring for the patient today was 30 minutes. This includes time spent before the visit reviewing the chart, time spent during the visit, and time spent after the visit and documentation. Orders: Orders XR thoracic spine 2V Today M54.9 - Dorsalgia, unspecified UA CC w/rflx Micro + Cult Today R35.89 - Other polyuria Medications: New cyclobenzaprine 5 mg PO BEDTIME PRN 20 tabs 0RF muscle spasm
== END 2024-08-06 10:05 | disposition home or self-care (01) ==
PROVIDERS: PCP Internal Medicine
DX: M54.9 Dorsalgia, unspecified (principal); S82.62XA Displaced fracture of lateral malleolus of left fibula, initial encounter for closed fracture; K70.30 Alcoholic cirrhosis of liver without ascites

== ENCOUNTER → 2024-08-06 09:41 | Outpatient (BNVA) | payer MEDICARE, SELFPAY | PROVIDERS: PCP Internal Medicine | DX: M54.9 Dorsalgia, unspecified (principal); K70.30 Alcoholic cirrhosis of liver without ascites; S83.62XA Sprain of the superior tibiofibular joint and ligament, left knee, initial encounter | CPT/HCPCS: 96127; 99212 ==

== ENCOUNTER 2024-09-05 13:00 | Outpatient (AMB) | payer MEDICARE, SELFPAY ==
[2024-09-05 13:13] VITALS: BP 122/80; BMI 23.7
--- NOTE | 2024-09-05 13:13 | MHC.PC.OV ---
Vital Signs 09/05/24 13:13 Height 5 ft 4 in Weight 138 lb BMI 23.7 BP 122/80 Blood Pressure Location Lt brachial Position Sitting Intake Visit Reasons: PE Intake Note: Patient here for a physical exam Coater Slate Required: No Accompanied by: Self / Same As Patient Allergies No Known Allergies [No Known Allergies*] Allergy (Verified 09/05/24 13:29) Medication List - Last Reconciled 09/05/24 by Joan Tadeo MD alprazolam 1 mg PO TID PRN clonidine HCl 0.1 mg PO BEDTIME PRN cyclobenzaprine 5 mg PO BEDTIME PRN folic acid 1 mg PO DAILY lactulose 45 mL PO TID sertraline 50 mg PO DAILY 90 days thiamine HCl (vitamin B1) (Vitamin B-1) 100 mg PO DAILY trazodone 50 mg PO BEDTIME PRN 90 days Tobacco use date assessed: 08/06/24 Dental Screening Dental Screen Date: 09/05/24 Did you have a dental visit in the last 12 months?: No Did you have a dental problem in the last 6 months where you did not have access to dental care?: No Was dental information given to patient?: Patient has dentist HPI HPI Comments History of Present Illness Details This is a 48-year-old female with alcoholic cirrhosis, alcohol use disorder and mild recurrent major depression that comes for her physical exam. She drinks daily and was advised to stop drinking alcohol. Has not had a mammogram and will be ordered today. Pap smear done 2022. Colonoscopy done 2014 and will be repeated 2024. Cirrhosis follow by Gastroenterology. Depression stable with medications. No acute complaints. 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 Mother No problems noted. Family/Other Substance use disorder Maternal Grandmother Ovarian cancer Maternal Aunt Ovarian cancer Social History Household Members: Spouse Housing: House Do you presently have visiting nurse or other home services: No Alcohol intake: current Alcohol intake frequency: 3 or more drinks per day Alcohol type: hard liquor Patient Tobacco Use Status: Current everyday Tobacco user Tobacco use type: Cigarette Cigarettes Per Day: 15 e-Cigarette/Vaping Use: Never Used Second Hand Smoke Exposure: Yes Substance Use Type: Marijuana service: No Current occupational status: unemployed Cognitive needs: No Hearing needs: No Vision needs: No Female Reproductive History Menstrual Age of Menarche: 10 Questionnaire PHQ-9 Over the last 2 weeks, how often have you been bothered by any of the following problems? 1. Little interest or pleasure in doing things: several days 2. Feeling down, depressed, or hopeless: several days 3. Trouble falling or staying asleep, or sleeping too much: several days 4. Feeling tired or having little energy: several days 5. Poor appetite or overeating: several days 6. Feeling bad about yourself - or that you are a failure or have let yourself or your family down: several days 7. Trouble concentrating on things, such as reading the newspaper or watching television: not at all 8. Moving or speaking so slowly that other people could have noticed. Or the opposite - being so fidgety or restless that you have been moving around a lot more than usual: not at all 9. Thoughts that you would be better off or of hurting yourself in some way: not at all Total score: 6 Depression Screening Interpretation: Positive Depression Screening Follow-up: Existing condition, In treatment and Follow-up Visit Requested Depression Screening Done: Yes 84745 - PHQ-9 Billing: Yes Source: Developed by Drs. Shubham Wellington, Alecia Dunlap, Newton Medina and colleagues, with an educational nafisa from [employer]. Thrive Questionnaire Date Thrive assessed: 02/03/24 I am a: Patient What is your living situation today?: I have a steady place to live Within the past 12 months, did the food you bought not last and you didn't have the money to get more?: Often true Within the past 12 months, did you worry whether your food would run out before you got money to buy more?: Often true Do you have trouble paying for medicines?: No Do you have trouble getting transportation to medical appointments?: Yes Do you have trouble paying your heating and electricity bill?: Yes Do you have trouble taking care of your child, family member or friend?: No Do you have trouble with day-to-day activities such as bathing, preparing meals, shopping, managing finances, etc.?: I choose not to answer this question Are you interested in more education?: No Please select the resources that you would like help with: Food, Transportation and Utilities Currently or been in a relationship where the following occur: No concerns reported THRIVE Score: 4 AUDIT C Alcohol Use Questionnaire (AUDIT-C) 1. How often do you have a drink containing alcohol?: 4 or more times a week Total Score: 4 BASIL-7 AMB Questionnaire BASIL-7 Date BASIL - 7 assessed: 08/06/24 Feeling nervous, anxious, or on edge: 1 = Several days Not being able to stop or control worryin = Several days Worrying too much about different things: 1 = Several days Trouble relaxin = Several days Being so restless that it is hard to sit still: 1 = Several days Becoming easily annoyed or irritable: 1 = Several days Feeling afraid as if something awful might happen: 1 = Several days Total BASIL-7 score (0-4 normal; 5-9 mild; 10-14 moderate; 15-21 severe): 7 Source: Developed by Drs. Shubham Wellington, Alecia Dunlap, Newton Medina and colleagues, with an educational nafisa from [employer]. BASIL-7 Assessment Billing BASIL-7 Assessment Tool: BASIL-7 Assessment 58847 Review of Systems Const All systems reviewed & are unremarkable except as noted in HPI and below Card Denies chest pain at rest, Denies chest pain with activity, Denies edema, Denies irregular heart rhythm, Denies claudication, Denies dyspnea, Denies dyspnea on exertion, Denies orthopnea, Denies paroxysmal nocturnal dyspnea and Denies slow heart rate Resp Denies cough, Denies dyspnea and Denies dyspnea on exertion GI Denies abdominal pain, Denies change in bowel habits, Denies excessive flatus, Denies nausea and Denies vomiting Physical exam (Primary Care) Vital Signs: Last Vital Signs BP 122/80 09/05/24 13:13 BMI result Body Mass Index 23.7 Tobacco/Smoking Status: Tobacco use Status Tobacco use date assessed 08/06/24 09/05/24 13:21 Patient Tobacco Use Status Current everyday Tobacco 09/05/24 13:21 Tobacco use type Cigarette 09/05/24 13:21 e-Cigarette/Vaping Use Never Used 09/05/24 13:21 PHQ-9: PHQ-9 Score PHQ-9: Total score 6 09/05/24 13:36 Depression Screening Interpretation: Positive Depression Screening Follow-up: Existing condition, In treatment and Follow-up Visit Requested Thrive Assessment: Date of Thrive Assessment Date Thrive assessed 02/03/24 09/05/24 13:21 Currently or been in a relationship where the following occur: No concerns reported HENMT Head: Yes normal to inspection, Yes normocephalic and Yes atraumatic Ears: external ears normal Eyes General: appearance normal, both eyes and all related structures Eyelids: Yes eyelids normal Conjunctivae: conjunctivae normal Neck Neck: Yes normal visual inspection and Yes supple Resp Effort & Inspection: normal respiratory effort Auscultation: clear to auscultation bilaterally Cardio Jugular venous distension: no JVD Rate: regular rate Rhythm: regular rhythm Heart sounds: S1 normal heart sound present and S2 normal heart sound present GI Inspection: Yes normal to inspection Palpation (GI): Soft to palpation and nontender Auscultation: normal bowel sounds Skin General skin exam: no rashes or lesions noted Neuro General: no focal motor deficits Extrem General: Yes full ROM Psych Appearance: grossly normal Office Procedures Flu Questionnaire Does the patient have a severe egg allergy?: No Results AMB Hemoglobin A1c AMB Hemoglobin A1c 5.2 % Last Edit by JANET Galicia on 09/05/24 13:32 Immunizations Fluarix Triv [id number] (PF) 45 mcg (15 mcg x 3)/0.5 mL IM syringe Performing Provider: Joan Tadeo MD [facility] [place] [facility] Documented (not given) by: JANET Galicia on 09/05/24 13:26 Reason Not Given: Patient Refused Results Reviewed Results Reviewed: Laboratory Last Values Hgb A1c (Clinic) 5.2 % (4.0-6.0) 09/05/24 13:23 Coding Level of Care Code Est Pt Prev Care 40-64y(82774) Diagnoses Physical exam Z00.00 Alcohol use disorder, severe, dependence F10.20 Mild recurrent major depression F33.0 Alcoholic cirrhosis of liver without ascites K70.30 Ascites presence: without ascites Additional Codes BASIL-7 Assessment Billing - BASIL-7 Assessment Tool: BASIL-7 Assessment 20899 ([id number]) PHQ-9 - 85082 - PHQ-9 Billing: Yes ([id number]) Time Spent (min) 31 Assessment & Plan Assessment & Plan (1) Physical exam: Code(s): Z00.00 - Encounter for general adult medical examination without abnormal findings Category: Medical Plan: Repeat in a year. (2) Alcohol use disorder, severe, dependence: Code(s): F10.20 - Alcohol dependence, uncomplicated Category: Medical Plan: Advised to quit drinking alcohol. (3) Mild recurrent major depression: Code(s): F33.0 - Major depressive disorder, recurrent, mild Category: Medical Plan: Continue SSRIs. (4) Alcoholic cirrhosis: Code(s): K70.30 - Alcoholic cirrhosis of liver without ascites Category: Medical Qualifiers: Ascites presence: without ascites Qualified Code(s): K70.30 - Alcoholic cirrhosis of liver without ascites Plan: Follow-up with Gastroenterology. Orders: Orders Influenza [id number] Immunization Today Z23 - Encounter for immunization AMB Hemoglobin A1c Today Z13.1 - Encounter for screening for diabetes mellitus Lipid Panel Today E78.5 - Hyperlipidemia, unspecified Vitamin D 25-OH Total Today E55.9 - Vitamin D deficiency, unspecified Vitamin B12 and Folate Today E53.8 - Deficiency of other specified B group vitamins Complete Blood Count Auto Diff Today D64.9 - Anemia, unspecified Comprehensive [place]. Panel Fast Today Z00.00 - Encounter for general adult medical examination without abnormal findings MM tomosynthesis screening BI Today Z12.31 - Encounter for screening mammogram for malignant neoplasm of breast IRON PROFILE Today D64.9 - Anemia, unspecified Vitamin B1 Today E51.9 - Thiamine deficiency, unspecified
== END 2024-09-05 13:42 | disposition home or self-care (01) ==
LOC: HO.HMCH 13:01
PROVIDERS: PCP Internal Medicine; Visit Provider Internal Medicine
DX: Z00.00 Encounter for general adult medical examination without abnormal findings (principal); F10.20 Alcohol dependence, uncomplicated; F33.0 Major depressive disorder, recurrent, mild; K70.30 Alcoholic cirrhosis of liver without ascites; Z23 Encounter for immunization; Z13.1 Encounter for screening for diabetes mellitus

== ENCOUNTER → 2024-09-05 13:00 | Outpatient (BNVA) | payer MEDICARE, SELFPAY | PROVIDERS: PCP Internal Medicine; Visit Provider Internal Medicine | DX: Z00.00 Encounter for general adult medical examination without abnormal findings (principal); Z13.1 Encounter for screening for diabetes mellitus; F33.0 Major depressive disorder, recurrent, mild; K70.30 Alcoholic cirrhosis of liver without ascites; F10.20 Alcohol dependence, uncomplicated | CPT/HCPCS: 83036; 90471; 96127; 99396 ==

== ENCOUNTER 2024-09-13 13:38 | Outpatient (REF) | payer MEDICARE, SELFPAY ==
[2024-09-13 13:53] LABS: MANUAL DIFF FLAG NO
[2024-09-13 14:45] LABS: Appearance Urine Clear; Color Urine Yellow; Glucose Urine UA Negative (Negative); Leukocyte Esterase Urine Negative (Negative); Nitrite Urine Negative (Negative); PH 5.5 (5.0-9.0); Urine Blood Negative (Negative); Urine Ketones Negative (Negative); Urine Protein Negative (Neg-Trace)
[2024-09-13 14:51] LABS: Basophils Absolute Auto 0.1 X10*3/uL (0.0-0.2); Basophils Percent Auto 0.8 % (0-2); Eosinophils Absolute Auto 0.2 X10*3/uL (0.0-0.4); Hematocrit 40.9 % (37.0-47.0); Hemoglobin 13.8 g/dl (12.0-16.0); Imm Gran Abs Auto 0.02 X10*3/uL (0.00-0.03); Imm Gran Pct Auto 0.3 % (0.0-0.4); Lymphocytes Percent Auto 27.1 % (20-40); Mean Corpuscular HGB Conc 33.7 g/dl (31.0-35.0); Mean Corpuscular Hemoglobin 35.4 pg (27.0-33.0); Mean Corpuscular Volume 104.9 fL (80.0-98.0); Mean Platelet Volume 12.2 fL (9.4-12.3); Monocytes Absolute Auto 0.6 X10*3/uL (0.1-1.2); Monocytes Percent Auto 8.5 % (2-11); Neutrophils Absolute Auto 4.6 x10*3/uL (2.0-8.3); Neutrophils Percent Auto 61.3 % (45-73); Platelet Count 163 X10*3/uL (160-400); Red Cell Distribution Width 13.6 % (11.0-16.0); White Blood Count 7.5 X10*3/uL (4.8-10.8)
[2024-09-13 16:44] LABS: Alanine Aminotransferase 88 U/L (0-31); Albumin Level 4.2 g/dL (3.5-5.0); Alkaline Phosphatase 162 U/L (39-117); Anion Gap 14 (12-20); Aspartate Amino Transferase 182 U/L (5-31); Bilirubin Total 0.5 mg/dL (0.0-1.0); Blood Urea Nitrogen 9 mg/dL (9-16); Calcium 9.9 mg/dL (8.4-10.2); Carbon Dioxide 26 mmol/L (22-29); Chloride 103 mmol/L (96-108); Cholesterol 226 mg/dL (<200); Estimated Glomerular Filt Rate > 60; Glucose Fasting 91 mg/dL (60-99); Glucose Random 91 mg/dL (60-115); HDL Cholesterol 47 mg/dL (>40); Iron 117 mcg/dL (30-160); LDL Cholesterol Calculated 147 mg/dL (<100); Magnesium 1.7 mg/dL (1.6-2.6); Percent Iron Saturation 37 % (15-50); Potassium 3.8 mmol/L (3.3-5.1); Sodium 139 mmol/L (135-145); Total Iron Binding Capacity 318 mcg/dL (228-428); Total Protein 8.1 g/dL (6.5-8.0); Triglycerides 163 mg/dL (<150); Unsaturated Iron Binding 201 ug/dL
[2024-09-13 16:49] LABS: Vitamin D 25-OH Total 31.4 ng/mL (>30)
[2024-09-13 17:00] LABS: Folate 4.4 ng/mL (> or = 4.0); Vitamin B12 436 pg/mL (200-900)
== END 2024-09-13 13:39 | disposition home or self-care (01) ==
LOC: HO.LAB 13:38
PROVIDERS: Absent Provider Internal Medicine; PCP Internal Medicine; Visit Provider Internal Medicine Gastroenterology
DX: Z00.00 Encounter for general adult medical examination without abnormal findings (principal); D64.9 Anemia, unspecified; R79.89 Other specified abnormal findings of blood chemistry; K75.81 Nonalcoholic steatohepatitis (NASH); R35.89 Other polyuria; E53.8 Deficiency of other specified B group vitamins; E78.5 Hyperlipidemia, unspecified; E55.9 Vitamin D deficiency, unspecified
CPT/HCPCS: 36415; 80053; 80061; 81003; 82306; 82607; 82746; 83540; 83735; 84425; 85025

== ENCOUNTER 2024-09-17 15:12 | Outpatient (REF) | payer MEDICARE, SELFPAY ==
--- NOTE | ~2024-09-17 | MM_ITS ---
EXAMINATION: MM SCREENING DIGITAL BREAST TOMOSYNTHESIS, BILATERAL CLINICAL INFORMATION: Screening. Asymptomatic. COMPARISON: Mammography: Comparison is made with available priors TECHNIQUE: Digital breast mammography with tomosynthesis is performed in both the craniocaudal and mediolateral oblique views along with computer-aided detection (CAD). FINDINGS: The breasts are heterogeneously dense, which may obscure small masses (ACR BI-RADS breast composition Category c). There are no significant masses, abnormal calcifications, or other abnormalities. MM/MM tomosynthesis screening BI IMPRESSION: No mammographic evidence of malignancy. ASSESSMENT: BI-RADS BI-RADS 1 - Negative RECOMMENDATION: Routine annual mammography screening. 1 year F/U This examination should not preclude the clinical evaluation of a suspicious palpable abnormality. This patient's information was entered into a reminder system with a target due date for their next mammogram. Electronically signed by: Karen Díaz DO 09/25/2024 03:35 PM MEI
== END 2024-09-17 15:13 | disposition home or self-care (01) ==
LOC: HO.MAMMO 15:12
PROVIDERS: PCP Internal Medicine; Visit Provider Internal Medicine
DX: Z12.31 Encounter for screening mammogram for malignant neoplasm of breast (principal)
CPT/HCPCS: 77063; 77067

== ENCOUNTER → 2024-09-17 15:15 | Outpatient (BNV) | payer MEDICARE, SELFPAY | PROVIDERS: PCP Internal Medicine; Visit Provider Internal Medicine | DX: Z12.31 Encounter for screening mammogram for malignant neoplasm of breast (principal) | CPT/HCPCS: 77063; 77067 ==

== ENCOUNTER 2024-11-08 15:32 | Outpatient (REF) | payer MEDICARE, SELFPAY ==
--- NOTE | ~2024-11-08 | XR_ITS ---
EXAMINATION: XR THORACIC SPINE CLINICAL INFORMATION: M54.9 - Dorsalgia, unspecified COMPARISON: X-ray chest of 05/12/2023 TECHNIQUE: 3 views of the thoracic spine were obtained. FINDINGS: Mild multilevel degenerative changes most notable the mid to lower thoracic spine, progressed since exam of 12/18/2015. XR/XR thoracic spine 2V IMPRESSION: Mild multilevel degenerative changes most notable the mid to lower thoracic spine, progressed since exam of 12/18/2015. Electronically signed by: Briana Hicks MD 11/12/2024 09:38 AM EST
[2024-11-08 16:51] LABS: Influenza A PCR NEGATIVE (Negative); Influenza B PCR NEGATIVE (Negative); Resp Syncy Virus RNA Qual PCR NEGATIVE (Negative); SARS COV2 PCR INHOUSE POSITIVE (Negative)
== END 2024-11-08 15:33 | disposition home or self-care (01) ==
LOC: HO.XRAY 15:32
PROVIDERS: Absent Provider Internal Medicine; PCP Internal Medicine
DX: U07.1 COVID-19 (principal); R09.89 Other specified symptoms and signs involving the circulatory and respiratory systems; M54.6 Pain in thoracic spine
CPT/HCPCS: 0241U; 72070

== ENCOUNTER 2024-11-23 11:38 | Outpatient (REF) | payer MEDICARE, SELFPAY ==
[2024-11-23 11:58] LABS: MANUAL DIFF FLAG NO
[2024-11-23 12:27] LABS: Basophils Percent Auto 0.5 % (0-2); Eosinophils Absolute Auto 0.1 X10*3/uL (0.0-0.4); Eosinophils Percent Auto 0.7 % (0-4); Hematocrit 40.8 % (37.0-47.0); Hemoglobin 13.8 g/dl (12.0-16.0); Imm Gran Abs Auto 0.04 X10*3/uL (0.00-0.03); Imm Gran Pct Auto 0.5 % (0.0-0.4); Lymphocytes Absolute Auto 2.4 X10*3/uL (1.2-4.9); Lymphocytes Percent Auto 28.7 % (20-40); Mean Corpuscular HGB Conc 33.8 g/dl (31.0-35.0); Mean Corpuscular Hemoglobin 35.8 pg (27.0-33.0); Mean Corpuscular Volume 105.7 fL (80.0-98.0); Mean Platelet Volume 12.3 fL (9.4-12.3); Monocytes Absolute Auto 0.9 X10*3/uL (0.1-1.2); Monocytes Percent Auto 10.5 % (2-11); Neutrophils Absolute Auto 4.9 x10*3/uL (2.0-8.3); Neutrophils Percent Auto 59.1 % (45-73); Platelet Count 179 X10*3/uL (160-400); Red Blood Count 3.86 X10*6/uL (4.20-5.50); Red Cell Distribution Width 15.7 % (11.0-16.0); White Blood Count 8.3 X10*3/uL (4.8-10.8)
[2024-11-23 12:37] LABS: Appearance Urine Cloudy; Color Urine Dark Yellow; Glucose Urine UA Negative (Negative); Leukocyte Esterase Urine Large (3+) (Negative); Nitrite Urine Negative (Negative); PH 7.5 (5.0-9.0); UMIC TRIGGER UACC YES; Urine Blood Trace (Negative); Urine Ketones Negative (Negative); Urine Protein Trace mg/dL (Neg-Trace)
[2024-11-23 12:40] LABS: Bacteria Urine 1+ (None Seen); Hyaline Casts Urine 0-2 /LPF (0-2); RBC Urine 0-2 /HPF (0-2); Squamous Epithelial Cell Urine 0-2 /HPF (0-2); UACC Culture Trigger YES; WBC Urine >50 /HPF (0-5)
[2024-11-23 13:51] LABS: Alanine Aminotransferase 47 U/L (0-31); Albumin Level 3.6 g/dL (3.5-5.0); Anion Gap 12 (12-20); Aspartate Amino Transferase 188 U/L (5-31); Bilirubin Total 0.8 mg/dL (0.0-1.0); Blood Urea Nitrogen 9 mg/dL (9-16); Calcium 9.4 mg/dL (8.4-10.2); Carbon Dioxide 27 mmol/L (22-29); Chloride 102 mmol/L (96-108); Estimated Glomerular Filt Rate > 60; Glucose Random 104 mg/dL (60-115); Potassium 4.3 mmol/L (3.3-5.1); Sodium 137 mmol/L (135-145); Total Protein 8.5 g/dL (6.5-8.0)
[2024-11-23 14:19] LABS: Alkaline Phosphatase 166 U/L (39-117)
== END 2024-11-23 11:39 | disposition home or self-care (01) ==
LOC: HO.LAB 11:38
PROVIDERS: PCP Internal Medicine; Visit Provider Internal Medicine
DX: R30.0 Dysuria (principal); B96.20 Unspecified Escherichia coli [E. coli] as the cause of diseases classified elsewhere
CPT/HCPCS: 36415; 80053; 81001; 85025; 87086; 87088; 87186

== ENCOUNTER 2024-11-28 21:49 | Emergency (ER) | payer MEDICARE, SELFPAY ==
--- NOTE | 2024-11-28 | ECG_ITS ---
Test Reason : CHEST PAIN Blood Pressure : */* mmHG Vent. Rate : 87 BPM Atrial Rate : 87 BPM P-R Int : 144 ms QRS Dur : 74 ms QT Int : 390 ms P-R-T Axes : 49 -4 18 degrees QTcB Int : 469 ms Normal sinus rhythm Normal ECG When compared with ECG of 12-May-2023 11:48, T wave amplitude has decreased in Anterior leads Referred By: Monique Liriano Electronically Signed By: CRESENCIO CERNA
--- NOTE | ~2024-11-28 | CT_ITS ---
CLINICAL HISTORY: slurred speech, out of window CT Head without contrast. CT angiography head and neck with contrast. 3D Postprocessing. Comparison: CT/SR - CT HEAD/BRAIN WO IV CON - 02/03/24 09:57 EDT Findings: HEAD CT: No intra-axial mass, midline shift, hydrocephalus, or acute hemorrhage. Mild bifrontal atrophy like change. Small amount of mucosal thickening in the right posterior ethmoids. Mastoids clear. The orbits are unremarkable. There is no acute fracture. HEAD AND NECK CTA: Aortic arch normal in caliber. Cervical great vessels are patent. The distal right V4 segment vertebral artery beyond the PICA is diminutive. Intracranial circulation patent with no aneurysm or occlusion. No abnormal intracranial enhancement. The visualized thyroid gland is unremarkable. No cervical mass or fluid collection. Mild dependent atelectasis in the upper lungs. No acute fracture. IMPRESSION: 1. No acute findings on noncontrast head CT. 2. Patent head and neck CTA. Diminutive right distal V4 segment vertebral arteries incidental. This document has been electronically signed by: Adiel Rasheed MD on 11/29/2024 00:30:52
--- NOTE | ~2024-11-28 | XR_ITS ---
CLINICAL HISTORY: cp 1 view chest x-ray Comparison: CR/SR - XR CHEST 1V - 02/03/24 15:11 EDT Findings: No consolidation or effusion. Heart size is normal. No acute fracture. IMPRESSION: 1. No acute findings. This document has been electronically signed by: Adiel Rasheed MD on 11/28/2024 22:46:34
[2024-11-28 22:04] VITALS: BP 101/66; BP 115/82; PULSE 89; PULSE 94; RESP 16; TEMP 36.5; O2SAT 94; BMI 22.3
[2024-11-28 22:17] LABS: MANUAL DIFF FLAG NO
[2024-11-28 22:19] LABS: Basophils Absolute Auto 0.1 X10*3/uL (0.0-0.2); Basophils Percent Auto 0.8 % (0-2); Eosinophils Absolute Auto 0.2 X10*3/uL (0.0-0.4); Eosinophils Percent Auto 1.6 % (0-4); Hematocrit 38.3 % (37.0-47.0); Hemoglobin 13.7 g/dl (12.0-16.0); Imm Gran Abs Auto 0.05 X10*3/uL (0.00-0.03); Imm Gran Pct Auto 0.5 % (0.0-0.4); Lymphocytes Absolute Auto 3.3 X10*3/uL (1.2-4.9); Lymphocytes Percent Auto 33.9 % (20-40); Mean Corpuscular HGB Conc 35.8 g/dl (31.0-35.0); Mean Corpuscular Hemoglobin 36.9 pg (27.0-33.0); Mean Corpuscular Volume 103.2 fL (80.0-98.0); Mean Platelet Volume 11.6 fL (9.4-12.3); Monocytes Absolute Auto 0.8 X10*3/uL (0.1-1.2); Monocytes Percent Auto 8.4 % (2-11); Neutrophils Absolute Auto 5.3 x10*3/uL (2.0-8.3); Neutrophils Percent Auto 54.8 % (45-73); Platelet Count 190 X10*3/uL (160-400); Red Blood Count 3.71 X10*6/uL (4.20-5.50); Red Cell Distribution Width 15.7 % (11.0-16.0); White Blood Count 9.6 X10*3/uL (4.8-10.8)
[2024-11-28 22:34] LABS: Alanine Aminotransferase 48 U/L (0-31); Albumin Level 3.7 g/dL (3.5-5.0); Alkaline Phosphatase 152 U/L (39-117); Anion Gap 12 (12-20); Aspartate Amino Transferase 158 U/L (5-31); Bilirubin Total 0.6 mg/dL (0.0-1.0); Blood Urea Nitrogen 4 mg/dL (9-16); Calcium 10.1 mg/dL (8.4-10.2); Carbon Dioxide 25 mmol/L (22-29); Chloride 103 mmol/L (96-108); Creatinine Clr Calc Pharmacy 94.2; Estimated Glomerular Filt Rate > 60; Ethanol 216 mg/dL; Glucose Random 117 mg/dL (60-115); Lipase 33 U/L (8-78); Potassium 3.3 mmol/L (3.3-5.1); Sodium 137 mmol/L (135-145); Total Protein 8.3 g/dL (6.5-8.0)
[2024-11-28 22:40] LABS: Troponin-I High Sensitivity < 2.7 ng/L (<3.5-17.0)
[2024-11-28 22:41] VITALS: BP 92/63; PULSE 87; RESP 18; TEMP 36.2; O2SAT 96
[2024-11-28 22:49] LABS: Ammonia 49 umol/L (13-55)
--- NOTE | 2024-11-28 22:50 | PC.NURSE ---
Madalyn RODRIGUEZ made aware of BP as documented. ivf infusing per mar.
[2024-11-28] MEDS: 0.9 % Sodium Chloride 1,000 ML 999 ML IV (23:03)
[2024-11-28 23:07] LABS: Influenza A PCR NEGATIVE (Negative); Influenza B PCR NEGATIVE (Negative); Resp Syncy Virus RNA Qual PCR NEGATIVE (Negative); SARS COV2 PCR INHOUSE NEGATIVE (Negative)
[2024-11-28] MEDS: iohexoL 350 MG/ML 100 ML INFUS..BTL 65 ML IV (23:16)
[2024-11-29 00:09] VITALS: BP 125/72; PULSE 95; RESP 16; TEMP 36.7; O2SAT 93
[2024-11-29 00:51] VITALS: BP 110/76; PULSE 89; RESP 16; O2SAT 96
--- NOTE | 2024-11-29 01:15 | ED_ITS ---
HPI - General Adult General Chief complaint: General Medical Stated complaint: slurred speex x5 days, fast ed 0 Time Seen by Provider: 11/28/24 22:08 Source: patient Limitations: no limitations History of Present Illness ED Provider: Monique Liriano PA-C HPI narrative: 49-year-old female with a history of alcohol use disorder, prior hepatic encephalopathy, cirrhosis, hypertension, presents as a stroke alert. Patient arrives with a report that she has had slurred speech for a week. EMS reports that family was noting right-sided facial droop as well. Patient denies weakness of upper or lower extremities. Related Data Previous Rx's ?Medication ?Instructions ?Recorded folic acid 1 mg tablet 1 mg PO DAILY #30 tabs 02/05/24 lactulose 10 gram/15 mL oral 45 ml PO TID #12,150 mL 02/20/24 solution sertraline 50 mg tablet 50 mg PO DAILY 90 days #90 tabs 05/12/24 thiamine HCl (vitamin B1) 100 mg 100 mg PO DAILY #30 tabs 09/10/24 tablet (Vitamin B-1) cyclobenzaprine 5 mg tablet 5 mg PO BEDTIME PRN muscle spasm 10/15/24 #20 tabs trazodone 50 mg tablet 50 mg PO BEDTIME PRN for insomnia 10/15/24 90 days #90 tabs nirmatrelvir 300 mg (150 mg 3 ea PO PER PKG DIR 5 days #30 ea 11/07/24 x2)-ritonavir 100 mg tablet,dose pack (Paxlovid) clonidine HCl 0.1 mg tablet 0.1 mg PO BEDTIME PRN anxiety #30 11/12/24 tabs alprazolam 1 mg tablet 1 mg PO TID PRN anxiety #86 tabs 11/18/24 nitrofurantoin macrocrystal 100 mg 100 mg PO BID 7 days #14 caps 11/24/24 capsule Allergies Allergy/AdvReac Type Severity Reaction Status Date / Time No Known Allergies Allergy Verified 11/28/24 22:07 [No Known Allergies*] Review of Systems 2 Review of Systems: Yes all other systems are reviewed and are negative Constitutional: Constitutional: Denies fatigue and Denies fever(s) Cardiovascular: Cardiovascular: Denies chest pain, Denies irregular heart rhythm, Denies palpitations and Denies dyspnea Respiratory: Respiratory: Denies dyspnea Gastrointestinal: Gastrointestinal: Denies abdominal pain, Denies nausea and Denies vomiting Neurologic: Reports Abnormal speech present and Denies focal weakness Endocrine: Endocrine: Denies fatigue and Denies palpitations [facility] Past Medical History Attestation statement: The following information was validated with the patient. 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 Mother No problems noted. Family/Other Substance use disorder Maternal Grandmother Ovarian cancer Maternal Aunt Ovarian cancer Social History Social History Household Members: Spouse Housing: House Do you presently have visiting nurse or other home services: No Alcohol intake: current Alcohol intake frequency: 3 or more drinks per day Alcohol type: hard liquor Patient Tobacco Use Status: Current everyday Tobacco user Tobacco use type: Cigarette Cigarettes Per Day: 15 Smoked in Last 30 Days: Yes e-Cigarette/Vaping Use: Never Used Second Hand Smoke Exposure: Yes Use of substances other than those prescribed or required for medical reasons: No Substance Use Type: Marijuana Advance Directives: No Advance Directives Information Provided: No Do you have a plan to hurt others: No Plan service: No Current occupational status: unemployed Cognitive needs: No Hearing needs: No Vision needs: No Physical Exam ED Vital Signs: Vital Signs - 24 hr 11/28/24 22:04 11/28/24 22:41 11/29/24 00:09 Temperature 97.7 F 97.2 F 98.0 F Pulse Rate 89 87 95 Respiratory Rate 16 18 16 Blood Pressure 101/66 92/63 125/72 Pulse Oximetry 94 96 93 Oxygen Delivery Method Room Air Room Air Room Air 11/29/24 00:51 11/29/24 02:15 Temperature 97.9 F Pulse Rate 89 87 Respiratory Rate 16 20 Blood Pressure 110/76 111/73 Pulse Oximetry 96 93 Oxygen Delivery Method Room Air Room Air BMI result Body Mass Index 22.3 Const Other: Alert, appears older than stated age Orientation/consciousness: patient oriented x3 HENMT Other: Alcohol halitosis Resp Effort & Inspection: normal respiratory effort Cardio Other: Normal peripheral perfusion Skin Other: Warm dry no rash Neuro Other: Subtle slurring of speech, no right-sided facial droop General: patient oriented x3, no focal motor deficits and CN's II-XI intact bilaterally Speech: Abnormal speech present Extrem Other: Strength 5/5 bilateral upper and lower extremities with resistance Psych Other: Cooperative NIH Stroke Scale Internal: Initial- Upon Arrival Level of Consciousness: Alert Level of Consciousness Questions: Answers both questions correctly Level of Consciousness Commands: Performs both tasks correctly Best Gaze: Normal Visual: No visual loss Facial Palsy: Normal Motor Arm (Right): No drift Motor Arm (Left): No drift Motor Leg (Right): No drift Motor Leg (Left): No drift Limb Ataxia: Absent Sensory: Normal Best Language: No aphasia Dysarthia: Mild to moderate dysarthria Extinction and Inattention: No abnormality Score: 1 Medications Administered Discontinued Medications Generic Name Dose Route Start Last Admin Trade Name Freq PRN Reason Stop Dose Admin Sodium Chloride 1,000 mls @ 999 mls/hr 11/28/24 23:00 11/29/24 00:51 Ns IV 11/29/24 00:00 Infused .Q1H1M KAITY Infusion Iohexol 65 ml 11/28/24 23:15 11/28/24 23:16 Iohexol 350 Mg/Ml 100 Ml Infus..Btl IV 11/28/24 23:16 65 ml ONCE ONE Administration Medical Decision Making Medical Decision Making MDM Narrative: 49-year-old female with a history of alcohol use disorder, prior hepatic encephalopathy, cirrhosis, hypertension, presents as a stroke alert. Patient arrives with a report that she has had slurred speech for a week. EMS reports that family was noting right-sided facial droop as well. Patient denies weakness of upper or lower extremities. Problem: Alcohol use disorder, cirrhosis, hypertension History: Per patient which may not be reliable I have considered the following differential diagnoses: Alcohol intoxication, CVA Plan: Patient presents as a stroke alert, I am meeting her for the 1st time, her speech does seem slurred, however I can also smell alcohol on her breath. Airing on the side of caution I am obtaining angiograms. We will be screening labs including troponin EKG chest x-ray per stroke protocol. I am not activating as she is well beyond the window. I suspect she is intoxicated as I previously stated, adding drug screen and serum ethanol. I have independently reviewed the following tests: Labs: No leukocytosis, not anemic, no electrolyte abnormality, ammonia 49, troponin negative at less than 2.7, her LFTs or other baseline, serum ethanol 216 EKG: Normal sinus rhythm, rate 87, no ischemic changes no ectopy CXR: Findings: No consolidation or effusion. Heart size is normal. No acute fracture. IMPRESSION: 1. No acute findings. This document has been electronically signed by: Adiel Rasheed MD on 11/28/2024 22:46:34 CT angio head and neck:indings: HEAD CT: No intra-axial mass, midline shift, hydrocephalus, or acute hemorrhage. Mild bifrontal atrophy like change. Small amount of mucosal thickening in the right posterior ethmoids. Mastoids clear. The orbits are unremarkable. There is no acute fracture. HEAD AND NECK CTA: Aortic arch normal in caliber. Cervical great vessels are patent. The distal right V4 segment vertebral artery beyond the PICA is diminutive. Intracranial circulation patent with no aneurysm or occlusion. No abnormal intracranial enhancement. The visualized thyroid gland is unremarkable. No cervical mass or fluid collection. Mild dependent atelectasis in the upper lungs. No acute fracture. IMPRESSION: 1. No acute findings on noncontrast head CT. 2. Patent head and neck CTA. Diminutive right distal V4 segment vertebral arteries incidental. This document has been electronically signed by: Adiel Rasheed MD on 11/29/2024 00:30:52 Lab Data 11/28/24 22:10 11/28/24 22:10 Labs: Lab Results 11/28/24 11/28/24 Range/Units 22:10 22:26 WBC 9.6 (4.8-10.8) X10*3/uL RBC 3.71 L (4.20-5.50) X10*6/uL Hgb 13.7 (12.0-16.0) g/dl Hct 38.3 (37.0-47.0) % MCV 103.2 H (80.0-98.0) fL MCH 36.9 H (27.0-33.0) pg MCHC 35.8 H (31.0-35.0) g/dl RDW 15.7 (11.0-16.0) % Plt Count 190 (160-400) X10*3/uL MPV 11.6 (9.4-12.3) fL Immature Gran % (Auto) 0.5 H (0.0-0.4) % Neut % (Auto) 54.8 (45-73) % Lymph % (Auto) 33.9 (20-40) % [place] % (Auto) 8.4 (2-11) % Eos % (Auto) 1.6 (0-4) % Baso % (Auto) 0.8 (0-2) % Lymph # (Auto) 3.3 (1.2-4.9) X10*3/uL [place] # (Auto) 0.8 (0.1-1.2) X10*3/uL Eos # (Auto) 0.2 (0.0-0.4) X10*3/uL Baso # (Auto) 0.1 (0.0-0.2) X10*3/uL Abs Immat Gran (auto) 0.05 H (0.00-0.03) X10*3/uL Absolute Neuts (auto) 5.3 (2.0-8.3) x10*3/uL Absolute Nucleated RBC 0.000 (0.0-0.012) X10*3/uL Nucleated RBC % (auto) 0.0 (0.0-0.2) /100WBC Hold Blue Top SEE NOTE Sodium 137 (135-145) mmol/L Potassium 3.3 D (3.3-5.1) mmol/L Chloride 103 (96-108) mmol/L Carbon Dioxide 25 (22-29) mmol/L Anion Gap 12 (12-20) BUN 4 L (9-16) mg/dL Creatinine 0.61 (0.5-1.4) mg/dL Estim Creat Clear Calc 94.2 Estimated GFR > 60 Random Glucose 117 H (60-115) mg/dL Calcium 10.1 D (8.4-10.2) mg/dL Magnesium 2.0 (1.6-2.6) mg/dL Total Bilirubin 0.6 (0.0-1.0) mg/dL AST 158 H (5-31) U/L ALT 48 H (0-31) U/L Alkaline Phosphatase 152 H (39-117) U/L Ammonia 49 (13-55) umol/L Troponin I High Sens < 2.7 (<3.5-17.0) ng/L Total Protein 8.3 H (6.5-8.0) g/dL Albumin 3.7 (3.5-5.0) g/dL Lipase 33 (8-78) U/L Ethyl Alcohol 216 mg/dL Influenza Type A (PCR) NEGATIVE (Negative) Influenza Type B (PCR) NEGATIVE (Negative) RSV RNA Qual (PCR) NEGATIVE (Negative) SARS-CoV-2 RNA (RT-PCR) NEGATIVE (Negative) Discharge Plan Discharge Clinical Impression: Alcohol intoxication Patient Disposition: Home, Self-Care Instructions: Alcohol Intoxication (ED) Additional Instructions: Alcohol use disorder You were seen in the Emergency Department today for treatment of alcohol use disorder.? You may have been given medications to help with your withdrawal symptoms.? Please do not drink alcohol with them. This is very dangerous and can cause respiratory depression or other adverse reactions depending on the medication. If you would like to cut down or stop your alcohol use please consider calling our outpatient Addiction Treatment office:? [facility] (M-F [id number]) [address] [place] [address] ? You have also been given a list of treatment providers in the area that can assist as well.? If you experience seizures, vomiting blood, black stools, falls, severe headache, chest pain, fevers, trouble breathing, hallucinations or any other concerns you need to call 911 or seek immediate care. Please stay hydrated. You were assessed for potential stroke today given your report of slurred speech. All of your screening labs were normal, there were no concerning changes on your EKG, your chest x-ray is clear, CT angiograms of your brain and your neck were normal. Your slurred speech is secondary to your ongoing alcohol abuse. You were also found to have elevated serum alcohol levels. Follow up with your primary care provider as needed. We have provided you with resources if you choose to seek help for your alcohol abuse disorder. Prescriptions: No Action lactulose 10 gram/15 mL solution 45 ml PO TID Qty: 95859 0RF sertraline 50 mg tablet 50 mg PO DAILY 90 Days Qty: 90 1RF thiamine HCl (vitamin B1) [Vitamin B-1] 100 mg tablet 100 mg PO DAILY Qty: 30 3RF cyclobenzaprine 5 mg tablet 5 mg PO BEDTIME PRN (Reason: muscle spasm) Qty: 20 0RF trazodone 50 mg tablet 50 mg PO BEDTIME PRN (Reason: for insomnia) 90 Days Qty: 90 1RF Paxlovid 300 mg (150 mg x 2)-100 mg tablets,dose pack 3 ea PO PER PKG DIR 5 Days Qty: 30 0RF clonidine HCl 0.1 mg tablet 0.1 mg PO BEDTIME PRN (Reason: anxiety) Qty: 30 5RF alprazolam 1 mg tablet 1 mg PO TID PRN (Reason: anxiety) Qty: 86 0RF nitrofurantoin macrocrystal 100 mg capsule 100 mg PO BID 7 Days Qty: 14 0RF Rx Instructions: must administer with a meal/food folic acid 1 mg Tablet 1 mg PO DAILY Qty: 30 0RF Print Language: Occitan
[2024-11-29 02:15] VITALS: BP 111/73; PULSE 87; RESP 20; TEMP 36.6; O2SAT 93
--- NOTE | 2024-11-29 02:50 | PC.NURSE ---
pt cleared to be d/c home by PA however pts stated he cannot pick her up until 0830, PA aware. pt resting comfortably at this time nad. ciwa 0. call malave within reach.
[2024-11-29 06:37] VITALS: BP 150/96; PULSE 96; RESP 16; TEMP 36.8; O2SAT 96
== END 2024-11-29 06:50 | disposition home or self-care (01) ==
PROVIDERS: Physician Assistant Medical; Emergency Provider Emergency Medicine
DX: F10.129 Alcohol abuse with intoxication, unspecified (principal); Y90.7 Blood alcohol level of 200-239 mg/100 ml; R11.2 Nausea with vomiting, unspecified; R07.89 Other chest pain; R47.81 Slurred speech; R29.810 Facial weakness; R29.701 NIHSS score 1; F17.210 Nicotine dependence, cigarettes, uncomplicated; Z03.818 Encounter for observation for suspected exposure to other biological agents ruled out; Z51.81 Encounter for therapeutic drug level monitoring; Z79.899 Other long term (current) drug therapy
CPT/HCPCS: 0241U; 36415; 70496; 70498; 71045; 80053; 80307; 82140; 83690; 83735; 84484; 85025; 93005; 96360; 96361; 99284; 99285; Q9967

== ENCOUNTER → 2024-11-28 22:00 | Outpatient (BNV) | payer MEDICARE, SELFPAY | PROVIDERS: Emergency Provider Emergency Medicine; Visit Provider Radiology Diagnostic Radiology | DX: R07.9 Chest pain, unspecified (principal) | CPT/HCPCS: 71045 ==

== ENCOUNTER 2024-12-11 08:27 | Outpatient (REF) | payer MEDICARE, SELFPAY ==
--- NOTE | ~2024-12-11 | US_ITS ---
US/US abdomen szymanski w elastography IMPRESSION: Hepatomegaly and hepatic steatosis. Nodular liver contour, suggestive of cirrhosis. The median shear wave velocity is 1.58 m/s, corresponding to a median liver stiffness of 7.87 kPa. The IQR/median value is 0.27. This is indicative of a poor quality data set, and the estimated liver stiffness may be unreliable. Findings are indicative of a low elastography value which rules out advanced chronic liver disease in asymptomatic patients. REFERENCE: Society of [employer]iologists in Ultrasound Liver Stiffness Thresholds (2020): LIVER STIFFNESS THRESHOLDS: *Shear wave velocity less than 1.3 m/s (Liver Stiffness equal or less than 5 kPa): High probability of being normal. *Shear wave velocity less than 1.7 m/s (Liver Stiffness less than 9 kPa): In the absence of other known clinical signs, rules out compensated advanced chronic liver disease. *Shear wave velocity between 1.7-2.1 m/s (Liver Stiffness 9-13 kPa): Suggestive of compensated advanced chronic liver disease but need further test for confirmation. *Shear wave velocity between 2.1-2.4 m/s (Liver Stiffness 13-17 kPa): Rules in compensated advanced chronic liver disease. *Shear wave velocity greater than 2.4 m/s (Liver Stiffness over 17 kPa): Suggestive of clinically significant portal hypertension. QUALITY OF DATA SET: *IQR/Median value equal or less than 0.15 implies a quality data set. *IQR/Median value over 0.15 implies a poor quality data set. SIGNIFICANT CHANGE FROM PRIOR EXAM: Significant change if liver stiffness measurement is 10% or greater from prior exam. OTHER CONSIDERATIONS: The stage of liver fibrosis may be overestimated in the setting of acute hepatitis, liver inflammation, elevated liver function tests, hepatic vascular congestion, obstructive cholestasis, non-fasting state, and infiltrative diseases such as amyloidosis and lymphoma. In some patients with NAFLD, the liver stiffness thresholds for compensated advanced chronic liver disease may be lower. In causes other than viral hepatitis and NAFLD, liver stiffness thresholds are not well established. Electronically signed by: Shubham Jones MD 12/11/2024 09:37 AM [facility] [place], [place]
== END 2024-12-11 08:28 | disposition home or self-care (01) ==
LOC: HO.US 08:27
PROVIDERS: Visit Provider Internal Medicine Gastroenterology
DX: K75.81 Nonalcoholic steatohepatitis (NASH) (principal); K74.60 Unspecified cirrhosis of liver
CPT/HCPCS: 76705; 76981

== ENCOUNTER → 2024-12-11 08:30 | Outpatient (BNV) | payer MEDICARE, SELFPAY | PROVIDERS: Visit Provider Radiology Diagnostic Radiology | DX: K76.0 Fatty (change of) liver, not elsewhere classified (principal); K76.89 Other specified diseases of liver; R16.0 Hepatomegaly, not elsewhere classified | CPT/HCPCS: 76705 ==

== ENCOUNTER 2025-01-02 03:19 | Emergency (ER) | payer MEDICARE, SELFPAY ==
--- NOTE | ~2025-01-02 | XR_ITS ---
CLINICAL HISTORY: Fall, pain 2 view right elbow Comparison: None Findings: No acute fractures or dislocations. No significant arthritic change or erosions. No joint effusion. No radiopaque foreign body. IMPRESSION: No right elbow fracture This document has been electronically signed by: Gregg Quiroz MD on 01/02/2025 05:09:30
--- NOTE | ~2025-01-02 | CT_ITS ---
EXAMINATION: CT HEAD WITHOUT CONTRAST CLINICAL INFORMATION: fall, unsure head strike, pain COMPARISON: November 28, 2024. TECHNIQUE: Contiguous axial imaging was performed from the skull base to vertex without intravenous administration of contrast. This CT examination was performed using dose optimization techniques as appropriate, variously including the following: *Automated exposure control *Adjustment of mA and/or kV according to patient size (this includes techniques or standardized protocols for targeted exams where dose is matched to indication/reason for exam; i.e. extremities or head) *Use of iterative reconstruction technique DLP: 560.66 mGy-cm FINDINGS: Bony calvarium is intact. Skull base is intact. No acute intracranial hemorrhage, mass effect, midline shift, hydrocephalus or herniation. Prominence of the extra-axial CSF spaces along the frontal and to a lesser extent temporal convexities. Sam-white matter differentiation is normal. Posterior cranial fossa contents demonstrated no gross hemorrhage or masses. Sellar/suprasellar region demonstrated no gross masses. Craniocervical junction is intact. Retention cyst, posterior right ethmoid cells and right pterygoid recess of the sphenoid sinus. Tympanic cavities and mastoid air cells are aerated. No hematoma is in the intraconal or extraconal compartments of the orbits. CT/CT head/brain wo IV con IMPRESSION: No acute fracture, bony calvarium. No acute intracranial hemorrhage. Frontal lobe volume loss. Electronically signed by: Chavez Zuniga MD 01/02/2025 09:21 AM [facility]
--- NOTE | ~2025-01-02 | CT_ITS ---
EXAMINATION: CT CERVICAL SPINE WITHOUT CONTRAST CLINICAL INFORMATION: Status post fall. COMPARISON: March 14, 2023. TECHNIQUE: Contiguous axial images through the cervical spine using 3 mm collimation with bone and soft tissue algorithm. Sagittal and coronal reformatted images acquired. This CT examination was performed using dose optimization techniques as appropriate, variously including the following: *Automated exposure control *Adjustment of mA and/or kV according to patient size (this includes techniques or standardized protocols for targeted exams where dose is matched to indication/reason for exam; i.e. extremities or head) *Use of iterative reconstruction technique. DLP: 308.05 mGy centimeter. FINDINGS: Craniocervical junction is intact. C1 is intact. C2 is intact. C3 is intact. C4 is intact. C5 is intact. C6 is intact. C7 is intact. There is no gross malalignment between the vertebral bodies for the facet joints. No prevertebral compartment hematoma. Tympanic cavities and mastoid air cells are aerated. CT/CT cervical spine wo IV con IMPRESSION: No acute fracture or trauma-related listhesis. Fleischner guidelines were followed. Electronically signed by: Chavez Zuniga MD 01/02/2025 09:28 AM [facility]
--- NOTE | ~2025-01-02 | XR_ITS ---
CLINICAL HISTORY: Fall,pain 3 view right shoulder Comparison: None Findings: Nondisplaced fracture involving the right humeral neck. No dislocation. No erosions. No radiopaque foreign body. IMPRESSION: Nondisplaced fracture involving the right humeral neck. No dislocation This document has been electronically signed by: Gregg Quiroz MD on 01/02/2025 05:08:23
[2025-01-02 03:28] VITALS: BP 118/79; PULSE 95; RESP 18; TEMP 36.6; O2SAT 95
[2025-01-02 03:35] VITALS: BP 138/86; PULSE 68; O2SAT 95; BMI 30.9
--- NOTE | 2025-01-02 06:51 | ED_ITS ---
HPI - General Adult General Chief complaint: Fall Stated complaint: Fall R shoulder pain, dizziness Time Seen by Provider: 01/02/25 06:48 Source: patient and EMS Mode of arrival: EMS Limitations: no limitations History of Present Illness ED Provider: Ammy Lomas PA-C HPI narrative: Patient is a 49 year old assigned male at with a history of anxiety, alcohol use disorder, MDD, benzodiazepine abuse, and HTN presenting to the emergency department today with right arm pain after a slip and fall going up the stairs. Patient states that she tripped up a set of stairs and injured her right arm. Patient states that she isn't sure if she hit her head but she did not lose consciousness. Patient denies any dizziness, lightheadedness, abdominal pain, nausea, vomiting, fever, chills, blurry vision, double vision, loss of vision, chest pain, difficulty breathing, shortness of breath, back pain, night sweats, pain with urination, increased urinary frequency, increased urinary urgency, blood in her urine or stool, syncope or a near syncopal episode, bowel incontinence, bladder incontinence, or any other complaints at this time. Location: right and upper extremity Radiation: non-radiation Relieving factors: immobilization Exacerbating factors: movement Associated symptoms: denies other symptoms Treatments prior to arrival: none Related Data Previous Rx's ?Medication ?Instructions ?Recorded folic acid 1 mg tablet 1 mg PO DAILY #30 tabs 02/05/24 lactulose 10 gram/15 mL oral 45 ml PO TID #12,150 mL 02/20/24 solution sertraline 50 mg tablet 50 mg PO DAILY 90 days #90 tabs 05/12/24 thiamine HCl (vitamin B1) 100 mg 100 mg PO DAILY #30 tabs 09/10/24 tablet (Vitamin B-1) trazodone 50 mg tablet 50 mg PO BEDTIME PRN for insomnia 10/15/24 90 days #90 tabs nirmatrelvir 300 mg (150 mg 3 ea PO PER PKG DIR 5 days #30 ea 11/07/24 x2)-ritonavir 100 mg tablet,dose pack (Paxlovid) clonidine HCl 0.1 mg tablet 0.1 mg PO BEDTIME PRN anxiety #30 11/12/24 tabs nitrofurantoin macrocrystal 100 mg 100 mg PO BID 7 days #14 caps 11/24/24 capsule alprazolam 1 mg tablet 1 mg PO TID PRN anxiety #86 tabs 12/19/24 cyclobenzaprine 5 mg tablet 5 mg PO BEDTIME PRN muscle spasm 12/19/24 #20 tabs Allergies Allergy/AdvReac Type Severity Reaction Status Date / Time No Known Allergies Allergy Verified 01/02/25 03:37 [No Known Allergies*] Review of Systems Constitutional: Constitutional: Reports no additional constitutional complaints, Denies chills, Denies fever(s) and Denies night sweats Eyes: Eyes: Reports no additional eye complaints, Denies blurry vision, Denies change in vision, Denies diplopia, Denies eye discharge, Denies loss of vision and Denies eye pain ENT: Denies dizziness Cardiovascular: Cardiovascular: Reports no additional cardiovascular complaints, Denies chest pain, Denies lightheadedness, Denies Loss of Consciousness and Denies dyspnea Respiratory: Respiratory: Reports no additional respiratory complaints and Denies dyspnea Gastrointestinal: Gastrointestinal: Reports no additional gastrointestinal complaints, Denies abdominal pain, Denies melena, Denies hematochezia, Denies change in bowel habits and Denies change in stool character Genitourinary: Genitourinary: Denies hematuria, Denies urinary frequency, Denies dysuria, Denies urinary incontinence, Denies urinary hesitancy and Denies urinary urgency Musculoskeletal: Musculoskeletal: Reports no additional musculoskeletal complaints, Denies numbness and Denies tingling Comments: right upper arm pain Neurologic: Denies dizziness, Denies loss of vision, Denies numbness and Denies tingling Psychiatric: Psychiatric: Reports no additional psychiatric complaints Endocrine: Endocrine: Reports no additional endocrine complaints Hematologic/Lymphatic: Hematologic/Lymphatic: Reports no additional hematologic/lymphatic complaints Allergic/Immunologic: Allergic/Immunologic: Reports no additional allergic/immunologic complaints [facility] Past Medical History Attestation statement: The following information was validated with the patient. 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 Mother No problems noted. Family/Other Substance use disorder Maternal Grandmother Ovarian cancer Maternal Aunt Ovarian cancer Social History Social History Household Members: Spouse Housing: House Do you presently have visiting nurse or other home services: No Alcohol intake: current Alcohol intake frequency: 3 or more drinks per day Alcohol type: hard liquor Patient Tobacco Use Status: Current everyday Tobacco user Tobacco use type: Cigarette Cigarettes Per Day: 15 Smoked in Last 30 Days: Yes e-Cigarette/Vaping Use: Never Used Second Hand Smoke Exposure: Yes Use of substances other than those prescribed or required for medical reasons: No Substance Use Type: Marijuana Advance Directives: No Advance Directives Information Provided: Yes Do you have a plan to hurt others: No Plan service: No Current occupational status: unemployed Cognitive needs: No Hearing needs: No Vision needs: No Physical Exam ED Vital Signs: Vital Signs - 24 hr 01/02/25 03:28 01/02/25 03:35 01/02/25 11:08 Temperature 97.8 F 97.9 F Pulse Rate 95 74 Respiratory Rate 18 16 Blood Pressure 118/79 92/62 Pulse Oximetry 95 96 Oxygen Delivery Method Room Air Room Air Room Air 01/02/25 11:09 Temperature 97.9 F Pulse Rate 74 Respiratory Rate 16 Blood Pressure 92/62 Pulse Oximetry 96 Oxygen Delivery Method Room Air BMI result Body Mass Index 30.9 Const General: cooperative, no acute distress, alert and awake Nutritional Appearance: well nourished Orientation/consciousness: patient oriented x3 Limitations: no limitations HENMT Head: Yes normal to inspection and Yes atraumatic Ears: hearing grossly normal bilaterally and external ears normal General nose exam: Normal external nose present, no nasal discharge noted and no epistaxis Face and sinus: Yes normal facial exam, No abrasion and No laceration Mouth: Normal oral and palatal mucosa present, no drooling and no muffled voice Eyes General: appearance normal, both eyes and all related structures Periorbital: periorbital findings normal Eyelids: Yes eyelids normal Conjunctivae: conjunctivae normal Pupils: Equal, round and reactive pupils present EOM: EOMs intact bilaterally Neck Neck: Yes normal visual inspection, Yes full ROM and Yes no lymphadenopathy Chest Chest palpation & inspection: normal inspection of the chest Resp Effort & Inspection: normal respiratory effort and able to speak in complete sentences GI Inspection: Yes normal to inspection Neuro General: patient oriented x3, moves all extremities and CN's II-XI intact bilaterally Cranial nerves: Yes Equal, round and reactive pupils present Cognition (Neuro): normal cognition Extrem Other: patient's right shoulder ROM decreased secondary to pain General: Yes normal to inspection and Yes capillary refill normal Psych Appearance: grossly normal Mental Status: mental status grossly normal Affect: normal affect Attitude: cooperative Thought process: Normal thought process present Thought content: Normal thought content present Insight: Good insight present (Psych) Medications Administered Discontinued Medications Generic Name Dose Route Start Last Admin Trade Name Freq PRN Reason Stop Dose Admin Acetaminophen 650 mg 01/02/25 07:06 01/02/25 07:48 Acetaminophen 325 Mg Tablet PO 01/02/25 07:07 650 mg ONCE ONE Administration Oxycodone HCl 10 mg 01/02/25 09:12 01/02/25 09:44 Oxycodone Hcl Immed Release 5 Mg Tablet PO 01/02/25 09:13 10 mg ONCE ONE Administration Procedures Orthopedic Splinting/Casting Injury #1: Side: right Upper Extremity Injury Location: shoulder Upper Extremity Immobilizer: sling/shoulder immobilizer Medical Decision Making Medical Decision Making MDM Narrative: Patient is a 49 year old assigned male at with a history of anxiety, alcohol use disorder, MDD, benzodiazepine abuse, and HTN presenting to the emergency department today with right arm pain after a slip and fall going up the stairs. Patient's physical exam was as noted in the physical exam portion of this note. Patient's right shoulder x-ray showed a humerus fracture. Patient's CT head and c-spine showed no acute process. I explained my physical exam findings as well as all test results to the patient. I answered all questions asked by the patient. Patient's right upper extremity was placed in a sling, without incident. Patient's PMS was intact prior to and after sling placement. Patient requested narcotic pain medication for home and I spent an extensive period of time explaining my concerns surrounding the patient's fall risk given her current alcohol and benzodiazpine use. Patient verbalized understanding and agreement with OTC pain medication Tylenol and Ibuprofen and if her pain becomes uncontrolled - she can call the department to re-address prescribing narcotic pain medication or she can return to the ER for break through pain management. I stressed the importance of the patient taking her medication as directed (either prescribed or as the over the counter packaging recommends). I stressed the importance of the patient following up with her primary care provider and an orthopedic provider. I stressed the importance of the patient returning to the emergency department immediately if her symptoms were to worsen or if she were to develop any dizziness, shortness of breath, difficulty breathing, chest pain, blurry vision, loss of vision, nausea, vomiting, abdominal pain, fever, chills, back pain, or any other complaints. Patient verbalized agreement and understanding with this treatment plan and discharge. Differential Diagnosis Differential Diagnoses: The differential diagnosis associated with the presentation includes Humerus fracture Alcohol abuse Admission/Observation Consideration of admission/observation: Escalation of care including admission/observation considered Patient would have been admitted to the hospital had her work up had any findings where hospital admission was appropriate and her clinical presentation warranted hospital admission. Independent Interpretation I performed an independent interpretation of an: Plain X-Ray and CT Scan Interpretation: My interpretation is in agreement with the radiologist's impression of these imaging studies. Report Number: [id number]: Total DLP = 879.00 mGy-cm EXAMINATION: CT CERVICAL SPINE WITHOUT CONTRAST CLINICAL INFORMATION: Status post fall. COMPARISON: March 14, 2023. TECHNIQUE: Contiguous axial images through the cervical spine using 3 mm collimation with bone and soft tissue algorithm. Sagittal and coronal reformatted images acquired. This CT examination was performed using dose optimization techniques as appropriate, variously including the following: *Automated exposure control *Adjustment of mA and/or kV according to patient size (this includes techniques or standardized protocols for targeted exams where dose is matched to indication /reason for exam; i.e. extremities or head) *Use of iterative reconstruction technique. DLP: 308.05 mGy centimeter. FINDINGS: Craniocervical junction is intact. C1 is intact. C2 is intact. C3 is intact. C4 is intact. C5 is intact. C6 is intact. C7 is intact. There is no gross malalignment between the vertebral bodies for the facet joints. No prevertebral compartment hematoma. Tympanic cavities and mastoid air cells are aerated. CT/CT cervical spine wo IV con IMPRESSION: No acute fracture or trauma-related listhesis. Fleischner guidelines were followed. Electronically signed by: Chavez Zuniga MD 01/02/2025 09:28 AM [facility] Dictated By: Chavez Brown MD Signed By: Electronically signed by Chavez Onofre MD 01/02/25 0928 Report Number: [id number]: Total DLP = 0.00 mGy-cm EXAMINATION: CT HEAD WITHOUT CONTRAST CLINICAL INFORMATION: fall, unsure head strike, pain COMPARISON: November 28, 2024. TECHNIQUE: Contiguous axial imaging was performed from the skull base to vertex without intravenous administration of contrast. This CT examination was performed using dose optimization techniques as appropriate, variously including the following: *Automated exposure control *Adjustment of mA and/or kV according to patient size (this includes techniques or standardized protocols for targeted exams where dose is matched to indication/reason for exam; i.e. extremities or head) *Use of iterative reconstruction technique DLP: 560.66 mGy-cm FINDINGS: Bony calvarium is intact. Skull base is intact. No acute intracranial hemorrhage, mass effect, midline shift, hydrocephalus or herniation. Prominence of the extra-axial CSF spaces along the frontal and to a lesser extent temporal convexities. Sam-white matter differentiation is normal. Posterior cranial fossa contents demonstrated no gross hemorrhage or masses. Sellar/suprasellar region demonstrated no gross masses. Craniocervical junction is intact. Retention cyst, posterior right ethmoid cells and right pterygoid recess of the sphenoid sinus. Tympanic cavities and mastoid air cells are aerated. No hematoma is in the intraconal or extraconal compartments of the orbits. CT/CT head/brain wo IV con IMPRESSION: No acute fracture, bony calvarium. No acute intracranial hemorrhage. Frontal lobe volume loss. Electronically signed by: Chavez Zuniga MD 01/02/2025 09:21 AM EST Dictated By: Chavez Brown MD Signed By: Electronically signed by Chavez Onofre MD 01/02/25 0921 CLINICAL HISTORY: Fall, pain 2 view right elbow Comparison: None Findings: No acute fractures or dislocations. No significant arthritic change or erosions. No joint effusion. No radiopaque foreign body. IMPRESSION: No right elbow fracture This document has been electronically signed by: Gregg Quiroz MD on 01/02/2025 05:09:30 Dictated By: Gregg Quiroz MD Signed By: Electronically signed by Gregg Quiroz MD 01/02/25 0510 CLINICAL HISTORY: Fall, pain 2 view right elbow Comparison: None Findings: No acute fractures or dislocations. No significant arthritic change or erosions. No joint effusion. No radiopaque foreign body. IMPRESSION: No right elbow fracture This document has been electronically signed by: Gregg Quiroz MD on 01/02/2025 05:09:30 Dictated By: Gregg Quiroz MD Signed By: Electronically signed by Gregg Quiroz MD 01/02/25 0510 Radiology Impression Discussion of test interpretation with radiology: I have reviewed the radiologist's reading. Independent Historian Clinical information obtained from an independent historian. History obtained from or confirmed by: EMS (EMS provided additional history and confirmed the history provided by the patient.) Discharge Plan Discharge Clinical Impression: Fracture, humerus Patient Disposition: Home, Self-Care Instructions: Arm Fracture in Adults (ED), How to Use a Sling (ED) Additional Instructions: Take tylenol and ibuprofen for pain. Please avoid the use of alcohol. You may remove the sling for sleep. Every 1 hour, for 10 minutes, you should move the RIGHT ELBOW JOINT ONLY to avoid freezing/damaging the right elbow. Follow up with your primary care provider and an orthopedic provider. Return to the emergency department immediately if your symptoms worsen or if you develop any dizziness, shortness of breath, difficulty breathing, chest pain, blurry vision, loss of vision, nausea, vomiting, abdominal pain, fever, chills, back pain, or any other complaints. Prescriptions: No Action lactulose 10 gram/15 mL solution 45 ml PO TID Qty: 13638 0RF sertraline 50 mg tablet 50 mg PO DAILY 90 Days Qty: 90 1RF thiamine HCl (vitamin B1) [Vitamin B-1] 100 mg tablet 100 mg PO DAILY Qty: 30 3RF trazodone 50 mg tablet 50 mg PO BEDTIME PRN (Reason: for insomnia) 90 Days Qty: 90 1RF Paxlovid 300 mg (150 mg x 2)-100 mg tablets,dose pack 3 ea PO PER PKG DIR 5 Days Qty: 30 0RF clonidine HCl 0.1 mg tablet 0.1 mg PO BEDTIME PRN (Reason: anxiety) Qty: 30 5RF nitrofurantoin macrocrystal 100 mg capsule 100 mg PO BID 7 Days Qty: 14 0RF Rx Instructions: must administer with a meal/food alprazolam 1 mg tablet 1 mg PO TID PRN (Reason: anxiety) Qty: 86 0RF cyclobenzaprine 5 mg tablet 5 mg PO BEDTIME PRN (Reason: muscle spasm) Qty: 20 0RF folic acid 1 mg Tablet 1 mg PO DAILY Qty: 30 0RF Referrals: [facility] [place]] (Call to establish and follow up with a primary care provider. If you already have a primary care provider, please follow up with them.) [facility] [[facility]] (Call to establish and follow up with a primary care provider. If you already have a primary care provider, please follow up with them.) [facility] [[facility] Group] (Call to establish and follow up with a primary care provider. If you already have a primary care provider, please follow up with them.) [facility] [Provider Group] (Call to establish and follow up with a primary care provider. If you already have a primary care provider, please follow up with them.) [facility] [Provider Group] (Call to establish and follow up with an orthopedic provider for your broken right humerus. ) Interventions: ED Discharge Assessment Last Done: 01/02/25 11:09 Discharge Date/Time: 01/02/25 11:10 Print Language: Thai
[2025-01-02] MEDS: Acetaminophen 325 MG TABLET 650 MG PO (07:48)
[2025-01-02] MEDS: oxyCODONE HCl Immed Release 5 MG TABLET 10 MG PO (09:44)
[2025-01-02 11:08] VITALS: BP 92/62; PULSE 74; RESP 16; TEMP 36.6; O2SAT 96
[2025-01-02 11:09] VITALS: BP 92/62; PULSE 74; RESP 16; TEMP 36.6; O2SAT 96
== END 2025-01-02 11:10 | disposition home or self-care (01) ==
PROVIDERS: Emergency Provider Emergency Medicine
DX: S42.301A Unspecified fracture of shaft of humerus, right arm, initial encounter for closed fracture (principal); R51.9 Headache, unspecified; I10 Essential (primary) hypertension; W10.9XXA Fall (on) (from) unspecified stairs and steps, initial encounter; Y93.9 Activity, unspecified; Y92.9 Unspecified place or not applicable; Y99.9 Unspecified external cause status
CPT/HCPCS: 70450; 72125; 73030; 73080; 99284

== ENCOUNTER → 2025-01-02 04:15 | Outpatient (BNV) | payer MEDICARE, SELFPAY | PROVIDERS: Visit Provider Radiology Vascular & Interventional Radiology | DX: M25.521 Pain in right elbow (principal); M25.511 Pain in right shoulder; R42 Dizziness and giddiness | CPT/HCPCS: 70450; 72125; 73030; 73080 ==

== ENCOUNTER 2025-01-17 08:13 | Outpatient (REF) | payer MEDICARE, MEDICAID, SELFPAY ==
--- NOTE | ~2025-01-17 | XR_ITS ---
EXAMINATION: XR SHOULDER 2 OR MORE VIEWS RIGHT HISTORY: M25.519 - Pain in unspecified shoulder COMPARISON: Comparison is made with the prior examination dated 01/02/2025. FINDINGS: Two views of the right shoulder are submitted. Osseous mineralization is normal. The previously seen fracture of the surgical neck of the humerus is poorly visualized due to rotation of the humerus. A fracture of the greater tuberosity is noted. Glenohumeral joint is not visualized. The AC joint is maintained. The soft tissues are unremarkable. XR/XR shoulder RT min 2V IMPRESSION: Limited examination due to obliquity and rotation of the humeral head. The previously seen fracture of the surgical neck is not well visualized. Electronically signed by: Shubham Jones MD 01/17/2025 03:19 PM EDT
== END 2025-01-17 08:14 | disposition home or self-care (01) ==
LOC: HO.HOSX 08:13
PROVIDERS: Visit Provider Physician Assistant
DX: M25.511 Pain in right shoulder (principal); S42.211A Unspecified displaced fracture of surgical neck of right humerus, initial encounter for closed fracture; W18.09XA Striking against other object with subsequent fall, initial encounter; Y93.02 Activity, running; Y92.009 Unspecified place in unspecified non-institutional (private) residence as the place of occurrence of the external cause; Y99.9 Unspecified external cause status
CPT/HCPCS: 73030; 99212

== ENCOUNTER 2025-01-17 09:12 | Outpatient (AMB) | payer MEDICARE, MEDICAID, SELFPAY ==
--- NOTE | 2025-01-17 09:25 | MHC.OFFVIS ---
Vital Signs 01/17/25 09:29 01/17/25 09:29 Height 5 ft 4 in 5 ft 4 in Weight 120 lb 120 lb BMI 20.6 20.6 Handedness Right Right Intake Visit Reasons: FC-Fracture, humerus RT,DOI 01/02/25 Intake Note: Philomena is a 49 year old right hand dominant female who presents today with her for a evaluation of her right humerus fx, DOI 01/02/25. Patient states she was running up stairs when she tripped up on a set of the stairs and injured her right arm. She feel a constant pain up her arm and it stops down to her wrist. Patient had tried NSAIDs and Tylenol with no relief. IMPRESSION (right shoulder: x ray): Nondisplaced fracture involving the right humeral neck. No dislocation Allergies No Known Allergies [No Known Allergies*] Allergy (Verified 01/17/25 09:28) HPI HPI FC-Fracture, humerus RT,DOI 01/02/25: Details: Mrs. Stacey vera is a 49-year-old right-hand dominant female who presents to the office today for evaluation of right proximal humerus fracture. She states that on 01/02/2025 she was going up the stairs in her home while in the dark and missed the last 1-2 steps resulting her to fall forward landing directly onto the right shoulder. She felt immediate pain and presented to the emergency department where x-rays were taken and she was diagnosed with a right proximal humerus fracture. She was given a sling and instructed to follow up with orthopedics outpatient for further evaluation and treatment. 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 Mother No problems noted. Family/Other Substance use disorder Maternal Grandmother Ovarian cancer Maternal Aunt Ovarian cancer Social History Household Members: Spouse Housing: House Do you presently have visiting nurse or other home services: No Alcohol intake: current Alcohol intake frequency: 3 or more drinks per day Alcohol type: hard liquor Patient Tobacco Use Status: Current everyday Tobacco user Tobacco use type: Cigarette Cigarettes Per Day: 15 e-Cigarette/Vaping Use: Never Used Second Hand Smoke Exposure: Yes Substance Use Type: Marijuana service: No Current occupational status: unemployed Cognitive needs: No Hearing needs: No Vision needs: No Female Reproductive History Menstrual Age of Menarche: 10 Review of Systems Const All systems reviewed & are unremarkable except as noted in HPI and below Physical Exam Vital Signs: BMI result Body Mass Index 20.6 Const General: cooperative, healthy appearing and no acute distress Resp Effort & Inspection: normal respiratory effort and able to speak in complete sentences Cardio Rate: regular rate Peripheral pulses: Peripheral pulses 2+ throughout Skin Lesions: no lesions Rashes: no rashes Extrem Other: Right shoulder: Forward flexion to 45 degrees. Abduction to 45 degrees. External rotation to neutral. Able to perform wrist flexion and extension, able to extend all digits and make a close fist. Able to perform thumbs up. NVI. Office Procedures AMB Fracture Care Fracture Billing Code: Fracture Billing Code Assessment & Plan Assessment & Plan (1) Fracture of neck of right humerus: Code(s): S42.211A - Unspecified displaced fracture of surgical neck of right humerus, initial encounter for closed fracture Category: Medical Plan Mrs. Ibarra he is a 49-year-old right-hand dominant female who presents to the office today for evaluation of right proximal humerus fracture. She states that on 01/02/2025 she was going up the stairs in her home while in the dark and missed the last 1-2 steps resulting her to fall forward landing directly onto the right shoulder. She felt immediate pain and presented to the emergency department where x-rays were taken and she was diagnosed with a right proximal humerus fracture. She was given a sling and instructed to follow up with orthopedics outpatient for further evaluation and treatment. While the office today, the presents without the sling. She reports that the sling provided to her in the emergency department was uncomfortable and she was experiencing more pain. I have fit her for an UltraSling without the abduction pillow off the shelf while in the office today. She was encouraged to come out to let the arm hang and to perform gentle range of motion of the elbow hand and wrist. I have also placed a physical therapy order to begin working on gentle range of motion in the next 2 weeks. She should not perform any lifting pushing or pulling with the right upper extremity. She will follow up in 4 weeks repeat x-rays, sooner if needed. X-rays of the right shoulder which were obtained while in the office today and were reviewed by me, Isabella Jo PA-C, revealed redemonstration of right humeral neck fracture. Orders: Orders XR shoulder RT min 2V Today M25.519 - Pain in unspecified shoulder Coding Level of Care Code Est Pt Level 4 (10198) Diagnoses Fracture of neck of right humerus S42.211A CPT Codes Fracture Care - Fracture Billing Code: Fracture Billing Code ([id number])
[2025-01-17 09:29] VITALS: BMI 20.6
== END 2025-01-17 09:46 | disposition home or self-care (01) ==
LOC: HO.HOS 09:13
PROVIDERS: Visit Provider Physician Assistant
DX: S42.211A Unspecified displaced fracture of surgical neck of right humerus, initial encounter for closed fracture (principal)
CPT/HCPCS: 99213

== ENCOUNTER → 2025-01-17 09:20 | Outpatient (BNV) | payer MEDICARE, SELFPAY | PROVIDERS: Visit Provider Radiology Diagnostic Radiology | DX: M25.511 Pain in right shoulder (principal) | CPT/HCPCS: 73030 ==

== ENCOUNTER 2025-02-15 13:50 | Outpatient (AMB) | payer MEDICARE, MEDICAID, SELFPAY ==
--- NOTE | 2025-02-15 13:56 | A.OFFVIS_ITS ---
Intake Visit Reasons: OV - right humerus fx, DOI 01/02/25 Intake Note: Philomena is a 49 year old right hand dominant female who presents today with her for a evaluation of her right humerus fx, DOI 01/02/25. Patient states she is still having without being in the sling. patient has tried at home stretches but notices stiffness. Allergies No Known Allergies [No Known Allergies*] Allergy (Verified 02/15/25 14:24) HPI HPI OV - right humerus fx, DOI 01/02/25: Details: Ms. Ibarra this is a 49-year-old right-hand dominant female who presents to the office today for follow-up of a right proximal humerus fracture that she sustained on 01/02/2025 when she fell going up the stairs. At her last appointment I fit her for an ultra sling without the abduction brace and encouraged her to come out of the sling to let the arm hang and performed gentle range of motion of the elbow hand and wrist. Unfortunately, the patient is unsure if physical therapy reached out to her but she was not interested in attending due to pain. 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 Mother No problems noted. Family/Other Substance use disorder Maternal Grandmother Ovarian cancer Maternal Aunt Ovarian cancer Social History Household Members: Spouse Housing: House Do you presently have visiting nurse or other home services: No Alcohol intake: current Alcohol intake frequency: 3 or more drinks per day Alcohol type: hard liquor Patient Tobacco Use Status: Current everyday Tobacco user Tobacco use type: Cigarette Cigarettes Per Day: 15 e-Cigarette/Vaping Use: Never Used Second Hand Smoke Exposure: Yes Substance Use Type: Marijuana service: No Current occupational status: unemployed Cognitive needs: No Hearing needs: No Vision needs: No Female Reproductive History Menstrual Age of Menarche: 10 Review of Systems Const All systems reviewed & are unremarkable except as noted in HPI and below Physical Exam Const General: cooperative, healthy appearing and no acute distress Resp Effort & Inspection: normal respiratory effort and able to speak in complete sentences Cardio Rate: regular rate Peripheral pulses: Peripheral pulses 2+ throughout Skin Lesions: no lesions Rashes: no rashes Extrem Other: Right shoulder: Forward flexion to 45 degrees. Abduction to 45 degrees. Ex ternal rotation to neutral. Able to perform wrist flexion and extension, able to extend all digits and make a close fist. Able to perform thumbs up. NVI. Assessment & Plan Assessment & Plan (1) Fracture of neck of right humerus: Code(s): S42.211A - Unspecified displaced fracture of surgical neck of right humerus, initial encounter for closed fracture Category: Medical Plan Ms. Ibarra this is a 49-year-old right-hand dominant female who presents to the office today for follow-up of a right proximal humerus fracture that she sustained on 01/02/2025 when she fell going up the stairs. At her last appointment I fit her for an ultra sling without the abduction brace and encouraged her to come out of the sling to let the arm hang and performed gentle range of motion of the elbow hand and wrist. Unfortunately, the patient is unsure if physical therapy reached out to her but she was not interested in attending due to pain. While in the office today, the patient's sling needed to be adjusted after the patient removed at while at home to wash it. Initially, the patient was charline the shoulder but after encouraging the patient to relax her muscles she was able to drop the shoulder back down into normal anatomical alignment. The goal is to continue managing this injury without surgical intervention. The patient does have a history of alcoholism and tobacco use. I encouraged the patient to attend physical therapy. A new physical therapy order has been placed stat while in the office today. I would like her to work on pendulum exercises as well as range of motion of the elbow hand and wrist to help with the stiffness that has developed. I am concerned about her range of motion and therefore we will keep a close follow-up. I would like to see her in 4 weeks with repeat x-rays, sooner if needed. Two sets of x-rays were obtained while in the office today and reviewed by me, Isabella Jo PA-C. Initial x-rays revealed possible further impaction of the right proximal humerus fracture. After visiting the patient and having her relax the shoulder repeat x-rays were obtained and show routine healing with better alignment. Orders: Orders XR shoulder RT min 2V Today M25.519 - Pain in unspecified shoulder XR shoulder RT min 2V Today M25.519 - Pain in unspecified shoulder Coding Level of Care Code Global (96969) Diagnoses Fracture of neck of right humerus S42.211A
== END 2025-02-15 15:02 | disposition home or self-care (01) ==
LOC: HO.HOS 13:51
PROVIDERS: Visit Provider Physician Assistant
DX: S42.211A Unspecified displaced fracture of surgical neck of right humerus, initial encounter for closed fracture (principal)
CPT/HCPCS: 99213

== ENCOUNTER → 2025-02-15 13:52 | Outpatient (BNV) | payer MEDICARE, MEDICAID, SELFPAY | PROVIDERS: Visit Provider Radiology Diagnostic Radiology | DX: S42.211A Unspecified displaced fracture of surgical neck of right humerus, initial encounter for closed fracture (principal) | CPT/HCPCS: 73030 ==

== ENCOUNTER 2025-02-15 14:16 | Outpatient (REF) | payer MEDICARE, MEDICAID, SELFPAY ==
--- NOTE | ~2025-02-15 | XR_ITS ---
EXAMINATION: XR SHOULDER, RIGHT CLINICAL INFORMATION: M25.519 - Pain in unspecified shoulder COMPARISON: February 15, 2025 at 1:57 PM TECHNIQUE: Two views of the right shoulder. FINDINGS: Acute comminuted and likely impacted fracture with the anterior displacement distal fragment involving the humeral neck/proximal diaphysis. XR/XR shoulder RT min 2V IMPRESSION: Overall no gross change. Acute comminuted impacted fracture neck/proximal diaphysis, right humerus Electronically signed by: Chavez Zuniga MD 02/15/2025 03:13 PM EDT
--- NOTE | ~2025-02-15 | XR_ITS ---
EXAMINATION: XR SHOULDER 2 OR MORE VIEWS RIGHT HISTORY: M25.519 - Pain in unspecified shoulder COMPARISON: Comparison is made with the prior examination dated 01/17/2025. FINDINGS: Two views of the right shoulder are submitted. Osseous mineralization is normal. Again seen is a fracture of the humeral neck. This appears to demonstrate slightly greater impaction on the prior study. The glenohumeral joint is not well visualized. The AC joint is maintained. The soft tissues are unremarkable. XR/XR shoulder RT min 2V IMPRESSION: Fracture of the humeral neck with possibly greater impaction. Electronically signed by: Shubham Jones MD 02/15/2025 02:11 PM EDT
== END 2025-02-15 14:17 | disposition home or self-care (01) ==
LOC: HO.HOSX 14:16
PROVIDERS: Visit Provider Physician Assistant
DX: M25.511 Pain in right shoulder (principal); S42.211A Unspecified displaced fracture of surgical neck of right humerus, initial encounter for closed fracture
CPT/HCPCS: 73030; 99212

== ENCOUNTER 2025-03-05 15:01 | Outpatient (AMB) | payer MEDICARE, SELFPAY ==
--- NOTE | 2025-03-05 15:05 | MHC.PC.OV ---
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: No Accompanied by: Self / Same As Patient Allergies No Known Allergies [No Known Allergies*] Allergy (Verified 03/05/25 15:18) Medication List - Last Reconciled 03/05/25 by Joan Tadeo MD alprazolam 1 mg PO TID PRN clonidine HCl 0.1 mg PO BEDTIME PRN cyclobenzaprine 5 mg PO BEDTIME PRN folic acid 1 mg PO DAILY lactulose 45 mL PO TID sertraline 50 mg PO DAILY 90 days thiamine HCl (vitamin B1) (Vitamin B-1) 100 mg PO DAILY trazodone 50 mg PO BEDTIME PRN 90 days Tobacco use date assessed: 03/05/25 Dental Screening Dental Screen Date: 03/05/25 Did you have a dental visit in the last 12 months?: No Did you have a dental problem in the last 6 months where you did not have access to dental care?: No Was dental information given to patient?: Patient has dentist HPI HPI Comments History of Present Illness Details The patient is a 49-year-old female presenting with cognitive difficulties. She sustained a right humerus fracture in December after falling on stairs, for which she received orthopedic evaluation. Collections of cognitive concerns have arisen in recent weeks, described as episodes of brain shutting off momentarily, with unclear speech and lack of awareness about these episodes until noted by family members. She sometimes exhibits forgetfulness and incoherence. Despite no report of headaches or pain, these episodes occasionally result in dizziness following her speech episodes. She has alcohol use disorder with severe dependence. Head CT conducted in December showed frontal lobe volume loss without acute hemorrhage. She has been treated for mild to moderate depression with a PHQ-9 score of 12, and is currently on medications including sertraline and vitamin B1, which she has not been taking consistently. Alcohol usage is reported, potentially interfering with vitamin B1 efficacy. The patient has not undergone a recent MRI scan of the brain, which is considered for further assessment of her cognitive symptoms. 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 Mother No problems noted. Family/Other Substance use disorder Maternal Grandmother Ovarian cancer Maternal Aunt Ovarian cancer Social History Household Members: Spouse Housing: House Do you presently have visiting nurse or other home services: No Alcohol intake: current Alcohol intake frequency: 3 or more drinks per day Alcohol type: hard liquor Patient Tobacco Use Status: Current everyday Tobacco user Tobacco use type: Cigarette Cigarettes Per Day: 15 e-Cigarette/Vaping Use: Never Used Second Hand Smoke Exposure: Yes Substance Use Type: Marijuana service: No Current occupational status: unemployed Cognitive needs: No Hearing needs: No Vision needs: No Female Reproductive History Menstrual Age of Menarche: 10 Questionnaire PHQ-9 Over the last 2 weeks, how often have you been bothered by any of the following problems? 1. Little interest or pleasure in doing things: more than half the days 2. Feeling down, depressed, or hopeless: more than half the days 3. Trouble falling or staying asleep, or sleeping too much: several days 4. Feeling tired or having little energy: several days 5. Poor appetite or overeating: more than half the days 6. Feeling bad about yourself - or that you are a failure or have let yourself or your family down: several days 7. Trouble concentrating on things, such as reading the newspaper or watching television: several days 8. Moving or speaking so slowly that other people could have noticed. Or the opposite - being so fidgety or restless that you have been moving around a lot more than usual: several days 9. Thoughts that you would be better off or of hurting yourself in some way: several days Total score: 12 Depression Screening Interpretation: Positive Depression Screening Follow-up: Existing condition and Follow-up Visit Requested Depression Screening Done: Yes 80468 - PHQ-9 Billing: Yes Source: Developed by Drs. Shubham WellingtonAlecia Kurt Kroenke and colleagues, with an educational nafisa from [employer]. Thrive Questionnaire Date Thrive assessed: 03/05/25 I am a: Patient What is your living situation today?: I have a steady place to live Within the past 12 months, did the food you bought not last and you didn't have the money to get more?: Often true Within the past 12 months, did you worry whether your food would run out before you got money to buy more?: Often true Do you have trouble paying for medicines?: No Do you have trouble getting transportation to medical appointments?: Yes Do you have trouble paying your heating and electricity bill?: Yes Do you have trouble taking care of your child, family member or friend?: No Do you have trouble with day-to-day activities such as bathing, preparing meals, shopping, managing finances, etc.?: I choose not to answer this question Are you currently unemployed and looking for a job?: Yes Are you interested in more education?: No Currently or been in a relationship where the following occur: No concerns reported THRIVE Score: 4 AUDIT C Alcohol Use Questionnaire (AUDIT-C) 1. How often do you have a drink containing alcohol?: 2-3 times a week 2. How many drinks containing alcohol do you have on a typical day when you are drinking?: 5 or 6 3. How often do you have six or more drinks on one occasion?: Daily or almost daily Total Score: 9 BASIL-7 AMB Questionnaire BASIL-7 Date BASIL - 7 assessed: 03/05/25 Feeling nervous, anxious, or on edge: 2 = More than half the days Not being able to stop or control worryin = More than half the days Worrying too much about different things: 2 = More than half the days Trouble relaxin = More than half the days Being so restless that it is hard to sit still: 1 = Several days Becoming easily annoyed or irritable: 2 = More than half the days Feeling afraid as if something awful might happen: 2 = More than half the days Total BASIL-7 score (0-4 normal; 5-9 mild; 10-14 moderate; 15-21 severe): 13 Source: Developed by Alecia Sams Kurt Kroenke and colleagues, with an educational nafisa from [employer]. BASIL-7 Assessment Billing BASIL-7 Assessment Tool: BASIL-7 Assessment 17022 Review of Systems Const All systems reviewed & are unremarkable except as noted in HPI and below Card Denies chest pain at rest, Denies chest pain with activity, Denies edema, Denies irregular heart rhythm, Denies claudication, Denies orthopnea, Denies paroxysmal nocturnal dyspnea and Denies slow heart rate Musc Reports arthralgias Physical exam (Primary Care) Vital Signs: Last Vital Signs BP 108/62 03/05/25 15:06 BMI result Body Mass Index 22.1 Tobacco/Smoking Status: Tobacco use Status Tobacco use date assessed 03/05/25 03/05/25 15:14 Patient Tobacco Use Status Current everyday Tobacco 03/05/25 15:14 Tobacco use type Cigarette 03/05/25 15:14 e-Cigarette/Vaping Use Never Used 03/05/25 15:14 PHQ-9: PHQ-9 Score PHQ-9: Total score 12 03/05/25 15:21 Depression Screening Interpretation: Positive Depression Screening Follow-up: Existing condition and Follow-up Visit Requested Thrive Assessment: Date of Thrive Assessment Date Thrive assessed 03/05/25 03/05/25 15:14 Currently or been in a relationship where the following occur: No concerns reported Resp Effort & Inspection: normal respiratory effort Auscultation: clear to auscultation bilaterally Cardio Jugular venous distension: no JVD Rate: regular rate Rhythm: regular rhythm Heart sounds: S1 normal heart sound present and S2 normal heart sound present Coding Level of Care Code Est Pt Level 4 (01920) Complex EM visit Add On G2211 Diagnoses Confusion R41.0 Fracture of neck of right humerus S42.211A Alcohol use disorder, severe, dependence F10.20 Mild recurrent major depression F33.0 Anxiety F41.9 Additional Codes BASIL-7 Assessment Billing - BASIL-7 Assessment Tool: BASIL-7 Assessment 56942 ([id number]) PHQ-9 - 77990 - PHQ-9 Billing: Yes ([id number]) Time Spent (min) 24 Assessment & Plan Assessment & Plan (1) Confusion: Code(s): R41.0 - Disorientation, unspecified Category: Medical (2) Fracture of neck of right humerus: Code(s): S42.211A - Unspecified displaced fracture of surgical neck of right humerus, initial encounter for closed fracture Category: Medical (3) Alcohol use disorder, severe, dependence: Code(s): F10.20 - Alcohol dependence, uncomplicated Category: Medical (4) Mild recurrent major depression: Code(s): F33.0 - Major depressive disorder, recurrent, mild Category: Medical (5) Anxiety: Code(s): F41.9 - Anxiety disorder, unspecified Category: Medical Plan To address the cognitive symptoms and mild frontal lobe volume loss, an MRI of the brain will be ordered. The patient should consistently take vitamin B1 supplements, particularly considering the impact of regular alcohol intake. Blood tests are to be conducted assessing thyroid function and vitamin levels. The patient will receive a neurology referral for further evaluation. Current management of depression with sertraline will continue. Safety precautions in the home have been discussed to prevent further falls, and her fracture will be monitored through typical follow-up care. Presently, no further cardiac examination is planned since current tachycardia was noted without additional related complaints. Patient was informed and verbally consented to the use of an ambient scribe for clinic note documentation during this visit. I discussed with the patient the findings of frontal lobe volume loss on her previous head CT, which may contribute to her cognitive issues. I explained the need for an MRI for a more comprehensive understanding of her brain health. We reviewed the importance of adhering to her medication regimen, particularly emphasizing vitamin B1 intake due to her alcohol use, and discussed the associated risks of cognitive decline without it. I will ensure follow-up monitoring of depression managed with sertraline and am referring her to neurology for specialist assessment of cognitive changes. We reviewed safety at home, particularly improving stair lighting, to prevent future falls. All instructions, including the logistics of obtaining blood work and MRI scheduling, were clarified. The patient was advised to return if cognitive symptoms worsen or if new symptoms develop. Orders: Orders MR head/brain wo con Today R41.0 - Disorientation, unspecified Vitamin B12 and Folate Today E53.8 - Deficiency of other specified B group vitamins, R41.0 - Disorientation, unspecified Vitamin B1 Today R41.0 - Disorientation, unspecified Thyroid Stimulating Hormone Today R41.0 - Disorientation, unspecified Referrals Neurology Referral R41.0 - Disorientation, unspecified Medications: Refilled folic acid 1 mg PO DAILY 30 tabs 0RF thiamine HCl (vitamin B1) (Vitamin B-1) 100 mg PO DAILY 30 tabs 3RF Patient Instructions: - Take vitamin B1 as prescribed daily to help prevent cognitive changes. - Attend all scheduled appointments and follow-up for MRI of the brain. - Complete blood tests as ordered at any time convenient this week. - Increase lighting on staircases to prevent falls; be cautious navigating stairs at home. - Continue current medications as prescribed without alteration until further advised. - Seek immediate care if cognitive issues worsen or new symptoms like severe dizziness or weakness develop. - Await neurology contact for appointment scheduling. - Abstain from alcohol as much as possible to improve vitamin absorption and cognitive function.
[2025-03-05 15:06] VITALS: BP 108/62; BMI 22.1
== END 2025-03-05 15:32 | disposition home or self-care (01) ==
LOC: HO.HMCH 15:03
PROVIDERS: PCP Internal Medicine; Visit Provider Internal Medicine
DX: R41.0 Disorientation, unspecified (principal); S42.211A Unspecified displaced fracture of surgical neck of right humerus, initial encounter for closed fracture; F10.20 Alcohol dependence, uncomplicated; F33.0 Major depressive disorder, recurrent, mild; F41.9 Anxiety disorder, unspecified

== ENCOUNTER → 2025-03-05 15:01 | Outpatient (BNVA) | payer MEDICARE, SELFPAY | PROVIDERS: PCP Internal Medicine; Visit Provider Internal Medicine | DX: R41.0 Disorientation, unspecified (principal); S42.211D Unspecified displaced fracture of surgical neck of right humerus, subsequent encounter for fracture with routine healing; W10.9XXD Fall (on) (from) unspecified stairs and steps, subsequent encounter; F10.20 Alcohol dependence, uncomplicated; F33.0 Major depressive disorder, recurrent, mild; F41.9 Anxiety disorder, unspecified | CPT/HCPCS: 96127; 99212 ==

== ENCOUNTER 2025-03-14 12:08 | Outpatient (REF) | payer MEDICARE, MEDICAID, SELFPAY ==
--- NOTE | ~2025-03-14 | XR_ITS ---
EXAMINATION: XR SHOULDER 2 OR MORE VIEWS RIGHT HISTORY: M25.519 - Pain in unspecified shoulder COMPARISON: Comparison is made with the prior examination dated 02/15/2025. FINDINGS: Two views of the right shoulder are submitted. Osseous mineralization is normal. Again seen is a fracture of the humeral neck. A small amount of callus formation is noted. Comparison is difficult due to differences in patient positioning. The glenohumeral and acromioclavicular joint spaces are preserved. The soft tissues are unremarkable. XR/XR shoulder RT min 2V IMPRESSION: Healing fracture of the humeral neck. Comparison is difficult due to differences in patient positioning. Electronically signed by: Shubham Jones MD 03/14/2025 02:50 PM EDT
== END 2025-03-14 12:09 | disposition home or self-care (01) ==
LOC: HO.HOSX 12:08
PROVIDERS: Visit Provider Physician Assistant
DX: M25.511 Pain in right shoulder (principal); S42.211A Unspecified displaced fracture of surgical neck of right humerus, initial encounter for closed fracture
CPT/HCPCS: 73030; 99212

== ENCOUNTER 2025-03-14 13:21 | Outpatient (AMB) | payer MEDICARE, MEDICAID, SELFPAY ==
--- NOTE | 2025-03-14 13:32 | MHC.OFFVIS ---
Intake Visit Reasons: OV - right humerus fx, DOI 01/02/25 Intake Note: Philomena is a 49 year old right hand dominant female who presents today with her sling for a evaluation of her right humerus fx, DOI 01/02/25. At her last appointment she was referred to physical therapy. So she can work on pendulum exercises as well as range of motion of the elbow, hand and wrist to help with the stiffness that has developed. Patient states she has gone to PT. She is noticing some swelling and she tends to feel that the shoulder is popping out of place. Allergies No Known Allergies [No Known Allergies*] Allergy (Verified 03/14/25 13:32) HPI HPI OV - right humerus fx, DOI 01/02/25: Details: Ms. Ibarra is a 49 year old right hand dominant female who presents to the office today for routine follow-up status post right proximal humerus fracture. Date of injury was 01/02/2025. Patient presents to the office today in her sling. She reports that she has come out of her sling to work on range of motion while at home. Physical therapy was ordered at the last appointment for gentle range of motion but the patient states that she had not call to make an appointment. 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 Mother No problems noted. Family/Other Substance use disorder Maternal Grandmother Ovarian cancer Maternal Aunt Ovarian cancer Social History Household Members: Spouse Housing: House Do you presently have visiting nurse or other home services: No Alcohol intake: current Alcohol intake frequency: 3 or more drinks per day Alcohol type: hard liquor Patient Tobacco Use Status: Current everyday Tobacco user Tobacco use type: Cigarette Cigarettes Per Day: 15 e-Cigarette/Vaping Use: Never Used Second Hand Smoke Exposure: Yes Substance Use Type: Marijuana service: No Current occupational status: unemployed Cognitive needs: No Hearing needs: No Vision needs: No Female Reproductive History Menstrual Age of Menarche: 10 Review of Systems Const All systems reviewed & are unremarkable except as noted in HPI and below Physical Exam Const General: cooperative, healthy appearing and no acute distress Resp Effort & Inspection: normal respiratory effort and able to speak in complete sentences Extrem Other: Right shoulder: Range of motion 45 degrees forward flexion and abduction. Able to perform elbow flexion-extension was stiffness. No able to perform wrist flexion and extension thumbs-up without deficit. Sensation is intact. Radial pulse intact. Assessment & Plan Assessment & Plan (1) Fracture of neck of right humerus: Code(s): S42.211A - Unspecified displaced fracture of surgical neck of right humerus, initial encounter for closed fracture Category: Medical Plan Ms. Ibarra is a 49 year old right hand dominant female who presents to the office today for routine follow-up status post right proximal humerus fracture. Date of injury was 01/02/2025. Patient presents to the office today in her sling. She reports that she has come out of her sling to work on range of motion while at home. Physical therapy was ordered at the last appointment for gentle range of motion but the patient states that she had not call to make an appointment. While the office today, I discussed the case in the imaging with Dr. Aburto was but did not see the patient in the office today in a collaborative treatment plan was created. I stressed the importance of physical therapy. The patient states that she had not reached out to the and thought that she could do some rehab at home. However on exam today the patient is having significant difficulties with range of motion. The patient understands and accepts she will reach out to physical therapy to make an appointment. I also recommended discontinuing the sling at this time to assist with range of motion. She will follow up in 6 weeks with repeat x-rays, sooner if needed. X-rays of the right shoulder which were obtained while in the office today and were reviewed by me, Isabella Jo PA-C, revealed right proximal humerus fracture with routine healing. Orders: Orders XR shoulder RT min 2V Today M25.519 - Pain in unspecified shoulder Coding Level of Care Code Global (61012) Diagnoses Fracture of neck of right humerus S42.211A
== END 2025-03-14 13:52 | disposition home or self-care (01) ==
LOC: HO.HOS 13:22
PROVIDERS: Visit Provider Physician Assistant
DX: S42.211A Unspecified displaced fracture of surgical neck of right humerus, initial encounter for closed fracture (principal)
CPT/HCPCS: 99213

== ENCOUNTER → 2025-03-14 13:25 | Outpatient (BNV) | payer MEDICARE, MEDICAID, SELFPAY | PROVIDERS: Visit Provider Radiology Diagnostic Radiology | DX: M25.511 Pain in right shoulder (principal) | CPT/HCPCS: 73030 ==

== ENCOUNTER 2025-04-25 09:01 | Outpatient (REF) | payer MEDICARE, MEDICAID, SELFPAY | END 2025-04-25 09:02 | disposition home or self-care (01) | LOC: HO.HOSX 09:01 | PROVIDERS: Visit Provider Physician Assistant | DX: Z13.89 Encounter for screening for other disorder (principal) ==

== ENCOUNTER 2025-05-08 09:46 | Outpatient (REF) | payer MEDICARE, MEDICAID, SELFPAY ==
--- NOTE | ~2025-05-08 | XR_ITS ---
EXAMINATION: XR SHOULDER, RIGHT CLINICAL INFORMATION: M25.519 - Pain in unspecified shoulder COMPARISON: March 14, 2025. TECHNIQUE: AP and Y-view projections, of the right shoulder. FINDINGS: Sclerotic marginated fracture through the right humeral neck into the greater tuberosity. The humeral head is well-seated in the glenoid of the scapula. The acromioclavicular joint is intact. XR/XR shoulder RT min 2V IMPRESSION: Nonunion fracture, left humeral neck. Electronically signed by: Chavez Zuniga MD 05/08/2025 01:38 PM EDT
== END 2025-05-08 09:47 | disposition home or self-care (01) ==
LOC: HO.HOSX 09:46
PROVIDERS: Visit Provider Physician Assistant
DX: S42.211K Unspecified displaced fracture of surgical neck of right humerus, subsequent encounter for fracture with nonunion (principal); M25.511 Pain in right shoulder
CPT/HCPCS: 73030; 99212

== ENCOUNTER 2025-05-08 12:59 | Outpatient (AMB) | payer MEDICARE, MEDICAID, SELFPAY ==
--- NOTE | 2025-05-08 13:03 | MHC.OFFVIS ---
Vital Signs 05/08/25 13:16 Height 5 ft 4 in Weight 129 lb BMI 22.1 Handedness Right Intake Visit Reasons: OV - right humerus fx, DOI 01/02/25-w/xrays Intake Note: Philomena is a 49 year old right hand dominant female who presents today with her son for a follow up of her right humerus fx, DOI 01/02/25. At her last appointment she was able to discontinue her sling and work on range of motion. She finds it difficult to lift her arm. Patient is still having limited ROM. Allergies No Known Allergies (No Known Allergies*) Allergy (Verified 05/08/25 13:16) HPI HPI OV - right humerus fx, DOI 01/02/25-w/xrays: Details: Ms. Stacey vera is a 49-year-old right-hand dominant female who presents to the office today for follow-up of a right proximal humerus fracture that she sustained on 01/02/2025. At her last appointment on 03/14/2025 she was again referred to physical therapy but patient did not attend. She continues to have stiffness but is able to reach the top of her head and behind her back. She is meeting range of motion goals at this time. 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 Mother No problems noted. Family/Other Substance use disorder Maternal Grandmother Ovarian cancer Maternal Aunt Ovarian cancer Social History Household Members: Spouse Housing: House Do you presently have visiting nurse or other home services: No Alcohol intake: current Alcohol intake frequency: 3 or more drinks per day Alcohol type: hard liquor Patient Tobacco Use Status: Current everyday Tobacco user Tobacco use type: Cigarette Cigarettes Per Day: 15 e-Cigarette/Vaping Use: Never Used Second Hand Smoke Exposure: Yes Substance Use Type: Marijuana service: No Current occupational status: unemployed Cognitive needs: No Hearing needs: No Vision needs: No Female Reproductive History Menstrual Age of Menarche: 10 Review of Systems Const All systems reviewed & are unremarkable except as noted in HPI and below Physical Exam Vital Signs: BMI result Body Mass Index 22.1 Const General: cooperative, healthy appearing and no acute distress Resp Effort & Inspection: normal respiratory effort and able to speak in complete sentences Extrem Other: Right shoulder 90 degrees of forward flexion and abduction. Able to reach T12. Able to reach the top of her head. NVI. Assessment & Plan Assessment & Plan (1) Fracture of neck of right humerus: Code(s): S42.211A - Unspecified displaced fracture of surgical neck of right humerus, initial encounter for closed fracture Category: Medical Plan Ms. Stacey vera is a 49-year-old right-hand dominant female who presents to the office today for follow-up of a right proximal humerus fracture that she sustained on 01/02/2025. At her last appointment on 03/14/2025 she was again referred to physical therapy but patient did not attend. She continues to have stiffness but is able to reach the top of her head and behind her back. She is meeting range of motion goals at this time. While in the office today, we discussed the importance of physical therapy. Patient states again that she is amenable to reaching out to them to schedule 1 or 2 visits with instruction of home exercise program. Another physical therapy order has been placed while in the office today. She has met her range of motion goals at this time we would like to maximize her function. X-rays were obtained while in the office today and revealed a healed right proximal humerus fracture. At this time she may follow up PRN, sooner if needed. Orders: Orders XR shoulder RT min 2V Today M25.519 - Pain in unspecified shoulder Coding Level of Care Code Est Pt Level 3 (93095) Diagnoses Fracture of neck of right humerus S42.211A
[2025-05-08 13:16] VITALS: BMI 22.1
== END 2025-05-08 13:30 | disposition home or self-care (01) ==
LOC: HO.HOS 13:01
PROVIDERS: Visit Provider Physician Assistant
DX: S42.211A Unspecified displaced fracture of surgical neck of right humerus, initial encounter for closed fracture (principal)
CPT/HCPCS: 99213

== ENCOUNTER → 2025-05-08 13:02 | Outpatient (BNV) | payer MEDICARE, MEDICAID, SELFPAY | PROVIDERS: Visit Provider Radiology Diagnostic Radiology | DX: S42.241 4-part fracture of surgical neck of right humerus (principal) | CPT/HCPCS: 73030 ==

== ENCOUNTER 2025-05-17 00:52 | Emergency (ER) | payer MEDICARE, MEDICAID, SELFPAY ==
--- NOTE | 2025-05-17 | ECG_ITS ---
Test Reason : CLEARANCE, ABD PAIN Blood Pressure : */* mmHG Vent. Rate : 92 BPM Atrial Rate : 92 BPM P-R Int : 140 ms QRS Dur : 76 ms QT Int : 380 ms P-R-T Axes : 40 19 15 degrees QTcB Int : 469 ms Normal sinus rhythm Normal ECG When compared with ECG of 28-Nov-2024 22:11, No significant change was found Referred By: Generic ED Physician Electronically Signed By: CRESENCIO CERNA
[2025-05-17 00:56] VITALS: BP 106/64; BP 110/82; PULSE 105; PULSE 94; RESP 14; TEMP 37.1; O2SAT 96; BMI 24.2
[2025-05-17 00:59] VITALS: BP 106/64; PULSE 94; RESP 27; TEMP 37.1; O2SAT 90
--- NOTE | 2025-05-17 01:20 | PC.NURSE ---
Pt A&Ox3, reports SI with plan to drink self to , Pt changed over, belongings obtained. 1:1 staff at bedside for safety.
[2025-05-17 01:39] LABS: MANUAL DIFF FLAG NO
[2025-05-17 01:43] LABS: Hematocrit 33.9 % (37.0-47.0); Hemoglobin 12.0 g/dl (12.0-16.0); Imm Gran Abs Auto 0.01 X10*3/uL (0.00-0.03); Imm Gran Pct Auto 0.1 % (0.0-0.4); Lymphocytes Absolute Auto 3.0 X10*3/uL (1.2-4.9); Mean Corpuscular HGB Conc 35.4 g/dl (31.0-35.0); Mean Corpuscular Hemoglobin 35.0 pg (27.0-33.0); Mean Corpuscular Volume 98.8 fL (80.0-98.0); NRBC Abs Auto 0.000 X10*3/uL (0.0-0.012); NRBC Pct Auto 0.0 /100WBC (0.0-0.2); Platelet Count 146 X10*3/uL (160-400); Red Blood Count 3.43 X10*6/uL (4.20-5.50); White Blood Count 8.1 X10*3/uL (4.8-10.8)
[2025-05-17 02:03] LABS: Alanine Aminotransferase 39 U/L (0-31); Albumin Level 3.2 g/dL (3.5-5.0); Alkaline Phosphatase 157 U/L (39-117); Anion Gap 13 (12-20); Aspartate Amino Transferase 103 U/L (5-31); Blood Urea Nitrogen 6 mg/dL (9-16); Calcium 8.6 mg/dL (8.4-10.2); Carbon Dioxide 25 mmol/L (22-29); Chloride 110 mmol/L (96-108); Creatinine Clr Calc Pharmacy 88.4; Estimated Glomerular Filt Rate > 60; Lipase 28 U/L (8-78); Magnesium 1.7 mg/dL (1.6-2.6); Potassium 3.5 mmol/L (3.3-5.1); Sodium 144 mmol/L (135-145); Total Protein 7.2 g/dL (6.5-8.0)
[2025-05-17 02:12] VITALS: RESP 18; O2SAT 94
[2025-05-17 02:20] LABS: Appearance Urine Clear; Glucose Urine UA Negative (Negative); PH 8.0 (5.0-9.0); Specific Gravity - Urine 1.010 (1.005-1.025)
[2025-05-17 02:25] LABS: Cannabinoid Screen Urine POSITIVE (Not Detect)
--- NOTE | 2025-05-17 03:33 | ED.GENADULT ---
HPI - General Adult General Chief complaint: General Medical Stated complaint: Stage 4 cirrhosis AB pain DV wants detox Time Seen by Provider: 05/17/25 02:46 Source: patient and EMS Mode of arrival: EMS Limitations: no limitations History of Present Illness ED Provider: Dr. Janine Vega HPI narrative: Patient comes to the emergency room via ambulance. According to the patient, when she was at home she asked her son to call EMS. Patient states that she is spine do drink herself to because she is under too much stress, complaining of abdominal pain, nausea, dark stool. Patient states that when she made the SI statements she did mean it. Patient denies fever chills, denies hematuria dysuria. Initially patient complaining of abdominal pain but now states that she does not have any pain. Patient denies any abdominal swelling Related Data Previous Rx's ?Medication ?Instructions ?Recorded lactulose 10 gram/15 mL oral 45 ml PO TID #12,150 mL 02/20/24 solution trazodone 50 mg tablet 50 mg PO BEDTIME PRN for insomnia 10/15/24 90 days #90 tabs sertraline 50 mg tablet 50 mg PO DAILY 90 days #90 tabs 01/11/25 folic acid 1 mg tablet 1 mg PO DAILY #30 tabs 03/05/25 thiamine HCl (vitamin B1) 100 mg 100 mg PO DAILY #30 tabs 03/05/25 tablet (Vitamin B-1) clonidine HCl 0.1 mg tablet 0.1 mg PO BEDTIME PRN anxiety #30 04/09/25 tabs alprazolam 1 mg tablet 1 mg PO TID PRN anxiety #86 tabs 05/09/25 cyclobenzaprine 5 mg tablet 5 mg PO BEDTIME PRN muscle spasm 05/09/25 #20 tabs Allergies Allergy/AdvReac Type Severity Reaction Status Date / Time No Known Allergies (No Known Allergy Verified 05/17/25 01:16 Allergies*) Review of Systems Review of Systems: Constitutional : No Weight loss, No Fever, No Chills, No Night Sweats, No Fatigue, No Malaise ENT/Mouth : No Hearing loss, No Ear Pain, No Nasal Congestion, No Sinus Pain, No Hoarseness, No sore throat, No Rhinorrhea, No Swallowing Difficulty Eyes: No Eye Pain, No Swelling, No Redness, No Foreign Body, No Discharge, No Vision Changes Cardiovascular : No Chest Pain, No SOB, No Dyspnea on Exertion, No Orthopnea, No Edema, No Palpitations Respiratory : No Cough, No Sputum, No Wheezing, No Smoke Exposure, No Dyspnea Gastrointestinal : No Nausea, No Vomiting, No Diarrhea, No Constipation, patient complaining at baseline chronic abdominal pain, especially order a right upper quadrant. Patient states she has cirrhosis and eventually when they she will of it Genitourinary : no irregular bleeding, No Dysuria, No Urinary Frequency, No Hematuria, No Urinary Incontinence, No Urgency, No Flank Pain, No Urinary Flow Changes, No Hesitancy Musculoskeletal : No joint pain, No Myalgias, No Joint Swelling Skin : No Skin Lesions, No rash Neuro : No Weakness, No Numbness, No Paresthesias, No Loss of Consciousness, No Dizziness, No Headache Psych : Complaining of anxiety and depression, complaining of SI stating that she will kill herself by drinking herself to , denies HI Heme/Lymph: No Bruising, No Bleeding,No Lymphadenopathy Endocrine : No Polyuria, No Polydipsia, No Temperature Intolerance [facility] Past Medical History Medical History Alcohol intoxication 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 Mother No problems noted. Family/Other Substance use disorder Maternal Grandmother Ovarian cancer Maternal Aunt Ovarian cancer Social History Social History Household Members: Spouse Housing: House Do you presently have visiting nurse or other home services: No Alcohol intake: current Alcohol intake frequency: 3 or more drinks per day Alcohol type: hard liquor Patient Tobacco Use Status: Current everyday Tobacco user Tobacco use type: Cigarette Cigarettes Per Day: 15 Smoked in Last 30 Days: Yes e-Cigarette/Vaping Use: Never Used Second Hand Smoke Exposure: Yes Use of substances other than those prescribed or required for medical reasons: No Substance Use Type: Marijuana Advance Directives: No Advance Directives Information Provided: Yes Patient : No service: No Current occupational status: unemployed Cognitive needs: No Hearing needs: No Vision needs: No Physical Exam ED Vital Signs: Vital Signs - 24 hr 05/17/25 00:56 05/17/25 00:59 05/17/25 02:12 Temperature 98.7 F 98.7 F Pulse Rate 94 94 Respiratory Rate 14 27 H 18 Blood Pressure 106/64 106/64 Pulse Oximetry 90 L 94 Oxygen Delivery Method Room Air Room Air Room Air 05/17/25 06:35 Temperature Pulse Rate 91 Respiratory Rate 16 Blood Pressure 94/59 L Pulse Oximetry 94 Oxygen Delivery Method Room Air BMI result Body Mass Index 24.2 Const Other: Appearance: Alert. Oriented X3. No acute distress. Eyes: Pupils equal, round and reactive to light. ENT: Pharynx normal. Neck: Normal inspection. Neck supple. No lymph nodes noted. No crepitus CVS: Normal heart rate and rhythm. Pulses normal. Normal S1 and S2 Respiratory: No respiratory distress. Breath sounds normal. No Wheezing. No rales Abdomen: Soft and nontender. No rigidity. No distention. Bedside ultrasound does not show any ascites., digital rectal exam , despite a good attempt to get a sample, there was no stool or blood in the card Skin: Skin warm and dry. Normal skin color. Normal skin turgor. Extremities: No lower extremity edema. No Lacerations. No Rash Neuro: Oriented X 3. No motor deficit. No sensory deficit. Moving all extremities. No slurred speech. CN 2 through 12 grossly intact Psych: calm, cooperative, normal affect Course Course Course Narrative: Patient complaining of suicidal ideation, alcohol dependence, feeling unwell All of patient's labs and imaging pending. Patient is on a Section 12 Care team consult pending Reevaluation(s) Reevaluation #1: Time: 08:21 Date: 05/17/25 Provider: Rosalio Muller DO Physician observation ended.. Patient has been cleared for discharge by the CARE team. Will follow up as an outpatient. Refused the detox places that she was referred to she stated she only wants to go to 1 unit and she was not able to get there due to insurance but not interested in anything else we will be discharged. Cleared by care team Time: 08:20 Medications Administered Discontinued Medications Generic Name Dose Route Start Last Admin Trade Name Thalia PRN Reason Stop Dose Admin Diphenhydramine HCl 50 mg 05/17/25 03:43 05/17/25 06:42 Diphenhydramine Hcl 25 Mg Capsule PO 05/17/25 03:44 Not Given ONCE ONE Lorazepam 2 mg 05/17/25 03:43 05/17/25 06:40 Lorazepam 1 Mg Tablet PO 05/17/25 03:44 2 mg ONCE ONE Administration Medical Decision Making Medical Decision Making [facility] Narrative: My interpretation of labs: No acute abnormality in patient's hematology or chemistry, LFTs are elevated but they are chronic and at baseline, hCG negative, urinalysis negative for UTI. Urine toxicology positive for benzos, THC, alcohol level 218 On physical exam, patient did not display any abdominal pain. No ascites. SBP not suspected. Patient is on a Section 12 Care team consult pending Physician observation started at 03:45 Differential Diagnosis Differential Diagnoses: The differential diagnosis associated with the presentation includes (Cirrhosis, alcohol intoxication, polysubstance abuse, anxiety, depression, suicidal ideation) Admission/Observation Consideration of admission/observation: Escalation of care including admission/observation considered (Patient is on a Section 12, care team consult pending) Lab Data [facility] Lab Attestation statement: I reviewed the patient's lab results. 05/17/25 01:35 05/17/25 01:35 Labs: Lab Results 05/17/25 05/17/25 05/17/25 Range/Units 01:35 02:08 03:03 WBC 8.1 (4.8-10.8) X10*3/uL RBC 3.43 L (4.20-5.50) X10*6/uL Hgb 12.0 (12.0-16.0) g/dl Hct 33.9 L (37.0-47.0) % MCV 98.8 H (80.0-98.0) fL MCH 35.0 H (27.0-33.0) pg MCHC 35.4 H (31.0-35.0) g/dl RDW 15.7 (11.0-16.0) % Plt Count 146 L (160-400) X10*3/uL MPV 11.4 (9.4-12.3) fL Immature Gran % (Auto) 0.1 (0.0-0.4) % Neut % (Auto) 52.3 (45-73) % Lymph % (Auto) 36.5 (20-40) % Pratt % (Auto) 9.0 (2-11) % Eos % (Auto) 1.5 (0-4) % Baso % (Auto) 0.6 (0-2) % Lymph # (Auto) 3.0 (1.2-4.9) X10*3/uL Pratt # (Auto) 0.7 (0.1-1.2) X10*3/uL Eos # (Auto) 0.1 (0.0-0.4) X10*3/uL Baso # (Auto) 0.1 (0.0-0.2) X10*3/uL Abs Immat Gran (auto) 0.01 (0.00-0.03) X10*3/uL Absolute Neuts (auto) 4.2 (2.0-8.3) x10*3/uL Absolute Nucleated RBC 0.000 (0.0-0.012) X10*3/uL Nucleated RBC % (auto) 0.0 (0.0-0.2) /100WBC Sodium 144 (135-145) mmol/L Potassium 3.5 (3.3-5.1) mmol/L Chloride 110 H (96-108) mmol/L Carbon Dioxide 25 (22-29) mmol/L Anion Gap 13 (12-20) BUN 6 L (9-16) mg/dL Creatinine 0.65 (0.5-1.4) mg/dL Estim Creat Clear Calc 88.4 Estimated GFR > 60 Random Glucose 99 (60-115) mg/dL Calcium 8.6 D (8.4-10.2) mg/dL Magnesium 1.7 (1.6-2.6) mg/dL Total Bilirubin 1.0 (0.0-1.0) mg/dL AST 103 H (5-31) U/L ALT 39 H (0-31) U/L Alkaline Phosphatase 157 H (39-117) U/L Total Protein 7.2 (6.5-8.0) g/dL Albumin 3.2 L (3.5-5.0) g/dL Lipase 28 (8-78) U/L Beta HCG, Quant < 2 mIU/mL Urine Color Yellow Urine Appearance Clear Urine pH 8.0 (5.0-9.0) Ur Specific [place] 1.010 (1.005-1.025) Urine Protein Negative (Neg-Trace) mg/dL Urine Glucose (UA) Negative (Negative) mg/dL Urine Ketones Negative (Negative) mg/dL Urine Blood Negative (Negative) Urine Nitrite Negative (Negative) Ur Leukocyte Esterase Negative (Negative) Stool Occult Blood Cancelled Urine Opiates Screen Not Detected (Not Detect) Ur Buprenorphine Scrn Not Detected (Not Detect) ng/mL Ur Oxycodone Screen Not Detected (Not Detect) ng/mL Urine Methadone Screen Not Detected (Not Detect) ng/mL Urine Fentanyl Screen Not Detected (Not Detect) Ur Barbiturates Screen Not Detected (Not Detect) Ur Phencyclidine Scrn Not Detected (Not Detect) Ur Amphetamines Screen Not Detected (Not Detect) U Benzodiazepines Scrn POSITIVE H (Not Detect) Urine Cocaine Screen Not Detected (Not Detect) U Marijuana (THC) Screen POSITIVE H (Not Detect) Ethyl Alcohol 218 mg/dL Critical Care Time Critical Care Time Critical Care Time: Yes Total Critical Care Time: 45 Attestation: I have personally provided critical care time. Time includes review of lab data, radiology results, discussion with consultants, and monitoring for potential decompensation. Intervention performed as documented. Discharge Plan Discharge Clinical Impression: Suicidal ideation, Alcohol dependence, Chronic abdominal pain Patient Disposition: Home, Self-Care Additional Instructions: You were seen in our Emergency Department today for treatment of a behavioral health issue. It is important after your visit that you follow up with either your behavioral health provider or a primary care doctor within 7 days.? If you have trouble finding a therapist you can reach out to [address] [phone] The National Suicide and Crisis Lifeline can be reached 7 days a week 24 hours a day.? Call 988 to speak with someone.? Return for any worsening symptoms or concerns such as thoughts of self harm or harm to others. Please call 911 if you feel your mental health is worsening.? Prescriptions: No Action lactulose 10 gram/15 mL solution 45 ml PO TID Qty: 12180 0RF trazodone 50 mg tablet 50 mg PO BEDTIME PRN (Reason: for insomnia) 90 Days Qty: 90 1RF sertraline 50 mg tablet 50 mg PO DAILY 90 Days Qty: 90 1RF clonidine HCl 0.1 mg tablet 0.1 mg PO BEDTIME PRN (Reason: anxiety) Qty: 30 5RF alprazolam 1 mg tablet 1 mg PO TID PRN (Reason: anxiety) Qty: 86 0RF cyclobenzaprine 5 mg tablet 5 mg PO BEDTIME PRN (Reason: muscle spasm) Qty: 20 0RF folic acid 1 mg tablet 1 mg PO DAILY Qty: 30 0RF thiamine HCl (vitamin B1) [Vitamin B-1] 100 mg tablet 100 mg PO DAILY Qty: 30 3RF Print Language: Cymraes
[2025-05-17 06:35] VITALS: BP 94/59; PULSE 91; RESP 16; O2SAT 94
--- NOTE | 2025-05-17 07:22 | PC.NURSE ---
Care of Pt assumed at change of shift. Pt relocated to pod--shift report received from ELAINA Do tralilly provided at bedside. Pt currently resting quietly with lights dimmed. Pt awaiting Care Team sue.
[2025-05-17 08:24] VITALS: BP 110/76; PULSE 93; RESP 12; TEMP 36.8; O2SAT 100
[2025-05-17 08:33] VITALS: BP 110/76; PULSE 93; RESP 12; TEMP 36.8; O2SAT 100
--- NOTE | 2025-05-17 08:35 | MHC.CARE ---
Pt does not meet the criteria for a higher level of care. She reports only having SI thoughts while under the influence of alcohol and is declining a detox admission and any substance use referrals. Pt will be discharged.
== END 2025-05-17 09:59 | disposition home or self-care (01) ==
PROVIDERS: Emergency Provider Emergency Medicine
DX: F10.20 Alcohol dependence, uncomplicated (principal); Y90.7 Blood alcohol level of 200-239 mg/100 ml; G89.29 Other chronic pain; R10.11 Right upper quadrant pain; Z79.899 Other long term (current) drug therapy
CPT/HCPCS: 36415; 80053; 80307; 81003; 83690; 83735; 84702; 85025; 93005; 99285; 99291; S9485

== ENCOUNTER → 2025-05-17 01:40 | Outpatient (BNV) | payer MEDICARE, MEDICAID, SELFPAY | PROVIDERS: Emergency Provider Emergency Medicine; Visit Provider Internal Medicine | DX: R10.9 Unspecified abdominal pain (principal) | CPT/HCPCS: 93010 ==

== ENCOUNTER 2025-06-11 22:57 | Emergency (ER) | payer MEDICARE, MEDICAID, SELFPAY ==
--- NOTE | ~2025-06-11 | CT_ITS ---
CLINICAL HISTORY: left sided weakness CT head without contrast Comparison: Head CT from 01/02/2025 Findings: No acute intracranial hemorrhage. No midline shift or hydrocephalus. Mild volume loss is generalized. Mild white matter lesions nonspecific and may reflect small-vessel ischemic disease. No large arterial territorial infarction by CT. Imaged paranasal sinuses and imaged mastoid air cells are well aerated. No acute skull fracture. Metal artifacts noted including from left-sided piercing ear ring in the [id number]. IMPRESSION: 1. No acute intracranial hemorrhage. 2. No large arterial territorial infarction by CT. This document has been electronically signed by: Manuel Maciel MD on 06/11/2025 23:15:57
--- NOTE | ~2025-06-11 | CT_ITS ---
CLINICAL HISTORY: left sided weakness CT angiography of the head and neck with contrast. With MIP MPR Postprocessing. Comparison: Head CT from 06/11/2025 Findings: Head: No ICA or M1 occlusion. Tortuosity of the vessels noted. Anterior communicating artery is patent (image 255 of series 6). Asymmetric ovarian branches of the proximal ACAs and proximal MCAs. The basilar artery is patent, tortuous, and without stenosis. Mild asymmetry of the imaged posterior communicating arteries, right larger than left. Proximal casket inspector are otherwise unremarkable. No dural venous sinus thrombosis, accounting for arachnoid granulations. No proximal intracranial arterial aneurysm. Neck: Calcified and noncalcified plaque of the imaged aorta and its branches with mild stenosis of the proximal left subclavian. Common origin of the brachiocephalic artery and left common carotid artery. No significant stenosis of either internal carotid artery by NASCET criteria. Calcified and noncalcified plaque include carotid bulbs and carotid bifurcations. Tortuosity of the vessels with retropharyngeal course of the left ICA. The left vertebral artery is dominant. No defined arterial dissection flap by CT. Metal artifacts noted. Scarring and motion of the imaged lung apices. Mild imaged rib deformities appear old/chronic in the [id number]. Degenerative changes include cervical facet arthropathy, disc osteophyte complexes, and ligament calcifications. Metal of the mouth noted. Metal and lucencies associated with multiple imaged remaining teeth. 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 IMPRESSION: Head: 1. No ICA or M1 occlusion. 2. The basilar artery is patent Neck: 1. No significant stenosis of either internal carotid artery by NASCET criteria. 2. Retropharyngeal course of the left ICA. 3. The left vertebral artery is dominant. 4. Multifocal atherosclerosis. This document has been electronically signed by: Manuel Maciel MD on 06/12/2025 00:01:30
--- NOTE | 2025-06-11 23:02 | ED.NEUROSD ---
HPI - Neuro Symptoms/Deficit General Chief Complaint: Stroke Stated Complaint: ? STROKE Time Seen by Provider: 06/11/25 23:01 Source: patient and EMS Mode of arrival: EMS Limitations: altered mental status (Alcohol intoxication) History of Present Illness ED Provider: Dr. Deandra Luna HPI Narrative: 49-year-old female with history of alcohol use disorder, alcoholic liver cirrhosis presenting with left-sided weakness that began about 2 hours prior to arrival. Patient states she was walking home (from this hospital actually, she was here to hand picker her daughter and they walked 2 miles home to their house) when she began to have some listing to the left. She did not fall. She went home and had 5 nips of vodka. Called 911 when she felt that her left-sided weakness was becoming more severe. Feels that her arm and her leg are weak. No facial droop or difficulty with word finding. Denies headache. Admits she has been ?feeling pretty crappy lately?. Unable to elaborate further on this. Denies other illicit substance use. No reported fever. She has a history of daily alcohol use and alcohol withdrawal seizure. Last drink was immediately prior to arrival. EMS reports blood sugar 116 Related Data Previous Rx's ?Medication ?Instructions ?Recorded lactulose 10 gram/15 mL oral 45 ml PO TID #12,150 mL 02/20/24 solution trazodone 50 mg tablet 50 mg PO BEDTIME PRN for insomnia 10/15/24 90 days #90 tabs sertraline 50 mg tablet 50 mg PO DAILY 90 days #90 tabs 01/11/25 folic acid 1 mg tablet 1 mg PO DAILY #30 tabs 03/05/25 thiamine HCl (vitamin B1) 100 mg 100 mg PO DAILY #30 tabs 03/05/25 tablet (Vitamin B-1) clonidine HCl 0.1 mg tablet 0.1 mg PO BEDTIME PRN anxiety #30 04/09/25 tabs cyclobenzaprine 5 mg tablet 5 mg PO BEDTIME PRN muscle spasm 05/09/25 #20 tabs alprazolam 1 mg tablet 1 mg PO TID PRN anxiety #86 tabs 06/10/25 Allergies Allergy/AdvReac Type Severity Reaction Status Date / Time No Known Allergies (No Known Allergy Verified 06/11/25 23:18 Allergies*) Review of Systems Review of Systems: As per HPI, full review of systems performed and negative but for the above mentioned pertinent positives and negatives. 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 Mother No problems noted. Family/Other Substance use disorder Maternal Grandmother Ovarian cancer Maternal Aunt Ovarian cancer Social History Social History Household Members: Spouse Housing: House Do you presently have visiting nurse or other home services: No Alcohol intake: current Alcohol intake frequency: 3 or more drinks per day Alcohol type: hard liquor Patient Tobacco Use Status: Current everyday Tobacco user Tobacco use type: Cigarette Cigarettes Per Day: 15 Smoked in Last 30 Days: Yes e-Cigarette/Vaping Use: Never Used Second Hand Smoke Exposure: Yes Substance Use Type: Marijuana Advance Directives: Yes Advance Directives Information Provided: Yes Advance Directives on File: No Patient : No service: No Current occupational status: unemployed Cognitive needs: No Hearing needs: No Vision needs: No Physical Exam Exam: Exam: GENERAL: Appears intoxicated, GCS 13, eyes open to voice, slurred speech, no acute distress. SKIN: Normal skin color for ethnicity, warm, dry, no rashes noted. HEENT: Normocephalic, atraumatic, no stridor, posterior oropharynx nonerythematous, dentition intact, EOMI, pupils are pinpoint bilaterally, reactive to light. NECK: Soft, supple, no step-offs, no deformities, no lymphadenopathy. CHEST: Heart regular tachycardia, no murmurs, symmetric chest rise and fall. PULMONARY: Clear to auscultation bilaterally, diminished at the bases, no labored breathing, no wheezes/rhales/rhonchi. ABDOMINAL: Soft, nondistended, positive bowel sounds in all quadrants. : Deferred. MUSCULOSKELETAL: Normal tone, full range of motion, no deformities, no peripheral edema. NEURO: GCS 13, eyes open to voice, slightly slurred speech, CN II through XII intact, equal sensation bilateral upper and lower extremities, slight drift in the left leg on extension, NIHSS 2 for leg drift and ataxia in that limb. PSYCHIATRIC: Flat affect, poor eye contact. Vital Signs: Vital Signs: Last Vital Signs Temp 97.5 F 06/12/25 05:50 Pulse 92 06/12/25 05:50 Resp 16 06/12/25 05:50 BP 94/60 06/12/25 05:50 Pulse Ox 95 06/12/25 05:50 O2 Del Method Room Air 06/12/25 05:50 BMI result Body Mass Index 22.0 Course Reevaluation(s) Reevaluation #1: Case discussed with neurologist on-call, Dr. Michael, who does not feel that this is a TNK candidate. We will continue to monitor. No acute bleed on plain CT head. Time: 23:20 Reevaluation #2: Patient feeling improved, requesting discharge. We will add on magnesium repletion and potassium repletion orally. She is still somewhat intoxicated. Once she is finished with her electrolyte repletion and if she has a steady gait, she may be discharged to follow up as an outpatient. Time: 01:30 Reevaluation #3: Patient ambulatory in the emergency room without assistance. Steady gait and no ataxia. Her electrolytes have been repleted. She is stable for discharge home. Using shared decision making, plan for discharge home to follow-up with primary care and/or specialist. Patient understands and agrees with plan for discharge. Time: 06:22 Medications Administered Discontinued Medications Generic Name Dose Route Start Last Admin Trade Name Freq PRN Reason Stop Dose Admin Magnesium Sulfate 2 gm in 50 mls @ 25 mls/hr 06/12/25 01:25 06/12/25 03:46 Magnesium Sulfate/H2o IV 06/12/25 03:24 Infused ONCE ONE Infusion Iohexol 70 ml 06/11/25 23:09 06/11/25 23:10 Iohexol 350 Mg/Ml 100 Ml Infus..Btl IV 06/11/25 23:10 70 ml ONCE ONE Administration Potassium Chloride 40 meq 06/12/25 01:25 06/12/25 01:39 Potassium Chloride Packet 20 Meq Packet PO 06/12/25 01:26 40 meq ONCE ONE Administration Medical Decision Making Medical Decision Making [facility] Narrative: Patient presents today with left sided weakness. Differential diagnosis includes anemia, electrolyte abnormality, infection, rhabdomyolysis/myositis, neurologic disorders such as Guillain-[place] or myasthenia gravis, CVA, medication side effects, deconditioning, dehydration, among many others. A broad-based workup was initiated based on the patient's history and physical examination. They were watched closely on harp repairer with vital signs that were monitored during the duration of their stay. Stroke protocol initiated upon arrival to the ED. Neurologist declined to administer TNK due to low NIHSS and intoxication. Differential Diagnosis Differential Diagnoses: The differential diagnosis associated with the presentation includes (as above) Admission/Observation Consideration of admission/observation: Escalation of care including admission/observation considered Consult Healthcare Provider Management of the patient was discussed with: Gear Milling Machine Set Up Operator (Neurology, Dr. Michael) Lab Data [facility] Lab Attestation statement: I reviewed the patient's lab results. 06/11/25 23:25 06/11/25 23:25 Labs: Lab Results 06/11/25 06/11/25 06/11/25 Range/Units 23:02 23:03 23:25 WBC 7.2 (4.8-10.8) X10*3/uL RBC 3.25 L (4.20-5.50) X10*6/uL Hgb 11.2 L (12.0-16.0) g/dl Hct 32.8 L (37.0-47.0) % MCV 100.9 H (80.0-98.0) fL MCH 34.5 H (27.0-33.0) pg MCHC 34.1 (31.0-35.0) g/dl RDW 16.9 H (11.0-16.0) % Plt Count 150 L (160-400) X10*3/uL MPV 11.6 (9.4-12.3) fL Immature Gran % (Auto) 0.1 (0.0-0.4) % Neut % (Auto) 49.1 (45-73) % Lymph % (Auto) 37.7 (20-40) % [place] % (Auto) 11.0 (2-11) % Eos % (Auto) 1.4 (0-4) % Baso % (Auto) 0.7 (0-2) % Lymph # (Auto) 2.7 (1.2-4.9) X10*3/uL [place] # (Auto) 0.8 (0.1-1.2) X10*3/uL Eos # (Auto) 0.1 (0.0-0.4) X10*3/uL Baso # (Auto) 0.1 (0.0-0.2) X10*3/uL Abs Immat Gran (auto) 0.01 (0.00-0.03) X10*3/uL Absolute Neuts (auto) 3.5 (2.0-8.3) x10*3/uL Absolute Nucleated RBC 0.000 (0.0-0.012) X10*3/uL Nucleated RBC % (auto) 0.0 (0.0-0.2) /100WBC PT 13.9 H (10.9-12.4) SEC Whole Blood PT 12.8 (11.1-13.5) sec INR 1.2 H (0.9-1.1) Whole Blood INR 1.1 (0.9-1.1) Sodium 140 (135-145) mmol/L Potassium 3.2 L (3.3-5.1) mmol/L Chloride 107 (96-108) mmol/L Carbon Dioxide 24 (22-29) mmol/L Anion Gap 12 (12-20) BUN 8 L (9-16) mg/dL Creatinine 0.68 (0.5-1.4) mg/dL Estim Creat Clear Calc 84.5 Estimated GFR > 60 POC Glucose 97 (60-115) mg/dL Random Glucose 94 (60-115) mg/dL Calcium 8.7 (8.4-10.2) mg/dL Magnesium 1.7 (1.6-2.6) mg/dL Total Bilirubin 0.6 (0.0-1.0) mg/dL AST 144 H (5-31) U/L ALT 39 H (0-31) U/L Alkaline Phosphatase 147 H (39-117) U/L Ammonia 52 (13-55) umol/L Troponin I High Sens < 2.7 (<3.5-17.0) ng/L Total Protein 7.5 (6.5-8.0) g/dL Albumin 3.3 L (3.5-5.0) g/dL Ethyl Alcohol 248 mg/dL Independent Interpretation I performed an independent interpretation of an: EKG Interpretation: My independent interpretation of the ECG reveals normal sinus rhythm with rate of 97, leftward axis, normal intervals, no ST elevations or depressions to suggest ischemic changes, relatively unchanged from previous on 05/17/2025. Radiology Impression Discussion of test interpretation with radiology: I have reviewed the radiologist's reading. Radiologist Impression: CT angiography of the head and neck with contrast. With MIP MPR Postprocessing. Comparison: Head CT from 06/11/2025 Findings: Head: No ICA or M1 occlusion. Tortuosity of the vessels noted. Anterior communicating artery is patent (image 255 of series 6). Asymmetric ovarian branches of the proximal ACAs and proximal MCAs. The basilar artery is patent, tortuous, and without stenosis. Mild asymmetry of the imaged posterior communicating arteries, right larger than left. Proximal curam developer are otherwise unremarkable. No dural venous sinus thrombosis, accounting for arachnoid granulations. No proximal intracranial arterial aneurysm. Neck: Calcified and noncalcified plaque of the imaged aorta and its branches with mild stenosis of the proximal left subclavian. Common origin of the brachiocephalic artery and left common carotid artery. No significant stenosis of either internal carotid artery by NASCET criteria. Calcified and noncalcified plaque include carotid bulbs and carotid bifurcations. Tortuosity of the vessels with retropharyngeal course of the left ICA. The left vertebral artery is dominant. No defined arterial dissection flap by CT. Metal artifacts noted. Scarring and motion of the imaged lung apices. Mild imaged rib deformities appear old/chronic in the [id number]. Degenerative changes include cervical facet arthropathy, disc osteophyte complexes, and ligament calcifications. Metal of the mouth noted. Metal and lucencies associated with multiple imaged remaining teeth. 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 IMPRESSION: Head: 1. No ICA or M1 occlusion. 2. The basilar artery is patent Neck: 1. No significant stenosis of either internal carotid artery by NASCET criteria. 2. Retropharyngeal course of the left ICA. 3. The left vertebral artery is dominant. 4. Multifocal atherosclerosis. This document has been electronically signed by: Manuel Maciel MD on 06/12/2025 00:01:30 CT head without contrast Comparison: Head CT from 01/02/2025 Findings: No acute intracranial hemorrhage. No midline shift or hydrocephalus. Mild volume loss is generalized. Mild white matter lesions nonspecific and may reflect small-vessel ischemic disease. No large arterial territorial infarction by CT. Imaged paranasal sinuses and imaged mastoid air cells are well aerated. No acute skull fracture. Metal artifacts noted including from left-sided piercing ear ring in the [id number]. IMPRESSION: 1. No acute intracranial hemorrhage. 2. No large arterial territorial infarction by CT. This document has been electronically signed by: Manuel Maciel MD on 06/11/2025 23:15:57 Independent Historian Clinical information obtained from an independent historian. History obtained from or confirmed by: EMS External Record Review External record reviewed: Inpatient record Chronic Conditions Patient?s care impacted by: Other (Alcoholic liver cirrhosis) Social Determinants Patient?s care significantly limited by Social Determinants of Health including: Alcoholism and drug addiction in family and Problems related to primary support group NIH Stroke Scale Internal: Initial- Upon Arrival Time: 23:02 Level of Consciousness: Alert Level of Consciousness Questions: Answers both questions correctly Level of Consciousness Commands: Performs both tasks correctly Best Gaze: Normal Visual: No visual loss Facial Palsy: Normal Motor Arm (Right): No drift Motor Arm (Left): No drift Motor Leg (Right): No drift Motor Leg (Left): Drift Limb Ataxia: Present in one limb Sensory: Normal Best Language: No aphasia Dysarthia: Normal Extinction and Inattention: No abnormality Score: 2 Discharge Plan Discharge Clinical Impression: Hypokalemia, Hypomagnesemia, Acute left-sided muscle weakness Alcohol intoxication Qualifiers: Complication of substance-induced condition: with unspecified complication Qualified Code(s): F10.929 - Alcohol use, unspecified with intoxication, unspecified Patient Disposition: Home, Self-Care Instructions: Hypokalemia (ED), Hypomagnesemia (ED), Weakness (ED) Additional Instructions: Return to the emergency department if you develop any new or worsening symptoms including: Worsening chest pain, difficulty breathing, fevers greater than 100 degrees, passing out, any new symptom that concerns you. Call 911 with any medical emergency. Prescriptions: No Action lactulose 10 gram/15 mL solution 45 ml PO TID Qty: 93189 0RF trazodone 50 mg tablet 50 mg PO BEDTIME PRN (Reason: for insomnia) 90 Days Qty: 90 1RF sertraline 50 mg tablet 50 mg PO DAILY 90 Days Qty: 90 1RF clonidine HCl 0.1 mg tablet 0.1 mg PO BEDTIME PRN (Reason: anxiety) Qty: 30 5RF cyclobenzaprine 5 mg tablet 5 mg PO BEDTIME PRN (Reason: muscle spasm) Qty: 20 0RF alprazolam 1 mg tablet 1 mg PO TID PRN (Reason: anxiety) Qty: 86 0RF folic acid 1 mg tablet 1 mg PO DAILY Qty: 30 0RF thiamine HCl (vitamin B1) [Vitamin B-1] 100 mg tablet 100 mg PO DAILY Qty: 30 3RF Print Language: Amharic
--- NOTE | 2025-06-11 23:05 | ECG_ITS ---
Test Reason : STROKE ALERT Blood Pressure : */* mmHG Vent. Rate : 97 BPM Atrial Rate : 97 BPM P-R Int : 166 ms QRS Dur : 76 ms QT Int : 368 ms P-R-T Axes : 57 -4 29 degrees QTcB Int : 467 ms Normal sinus rhythm Normal ECG When compared with ECG of 17-May-2025 01:40, No significant change was found Referred By: Deandra Luna Electronically Signed By: Gino Ruiz
[2025-06-11 23:06] VITALS: BP 104/76; PULSE 80; O2SAT 95
[2025-06-11 23:08] LABS: Prothrombin Time Whole Bld POC 12.8 sec (11.1-13.5); ~PT, ~INR - Anti Coag Clinic 1.1 (0.9-1.1)
[2025-06-11 23:10] LABS: Glucose, Whole Blood 97 mg/dL (60-115)
[2025-06-11] MEDS: iohexoL 350 MG/ML 100 ML INFUS..BTL 70 ML IV (23:10)
[2025-06-11 23:18] VITALS: BP 105/66; PULSE 97; RESP 16; TEMP 36.6; O2SAT 93; BMI 22.0
[2025-06-11 23:30] VITALS: BP 105/66; PULSE 97; RESP 16; TEMP 36.6; O2SAT 93
[2025-06-11 23:30] LABS: MANUAL DIFF FLAG NO
[2025-06-11 23:31] LABS: Hematocrit 32.8 % (37.0-47.0); Hemoglobin 11.2 g/dl (12.0-16.0); Imm Gran Abs Auto 0.01 X10*3/uL (0.00-0.03); Imm Gran Pct Auto 0.1 % (0.0-0.4); Lymphocytes Absolute Auto 2.7 X10*3/uL (1.2-4.9); Mean Corpuscular HGB Conc 34.1 g/dl (31.0-35.0); Mean Corpuscular Hemoglobin 34.5 pg (27.0-33.0); Mean Corpuscular Volume 100.9 fL (80.0-98.0); NRBC Abs Auto 0.000 X10*3/uL (0.0-0.012); NRBC Pct Auto 0.0 /100WBC (0.0-0.2); Platelet Count 150 X10*3/uL (160-400); Red Blood Count 3.25 X10*6/uL (4.20-5.50); White Blood Count 7.2 X10*3/uL (4.8-10.8)
[2025-06-11 23:42] LABS: INTERNATIONAL NORM RATIO 1.2 (0.9-1.1); Prothrombin Time 13.9 SEC (10.9-12.4)
[2025-06-11 23:47] LABS: Alanine Aminotransferase 39 U/L (0-31); Albumin Level 3.3 g/dL (3.5-5.0); Alkaline Phosphatase 147 U/L (39-117); Anion Gap 12 (12-20); Aspartate Amino Transferase 144 U/L (5-31); Blood Urea Nitrogen 8 mg/dL (9-16); Calcium 8.7 mg/dL (8.4-10.2); Carbon Dioxide 24 mmol/L (22-29); Chloride 107 mmol/L (96-108); Creatinine Clr Calc Pharmacy 84.5; Estimated Glomerular Filt Rate > 60; Potassium 3.2 mmol/L (3.3-5.1); Sodium 140 mmol/L (135-145); Total Protein 7.5 g/dL (6.5-8.0)
[2025-06-11 23:53] LABS: Troponin-I High Sensitivity < 2.7 ng/L (<3.5-17.0)
[2025-06-12 00:08] LABS: Magnesium 1.7 mg/dL (1.6-2.6)
[2025-06-12 00:24] LABS: Ammonia 52 umol/L (13-55)
[2025-06-12 00:56] VITALS: BP 110/68; PULSE 100; RESP 20; O2SAT 96
[2025-06-12] MEDS: Magnesium Sulfate/H2O 2 GM/50 ML PIGGYBACK IV (01:38)
[2025-06-12] MEDS: Potassium Chloride Packet 20 MEQ PACKET 40 MEQ PO (01:39)
--- NOTE | 2025-06-12 01:41 | PC.NURSE ---
Vargas, pts family, called for an update. Update provided with pts verbal consent. Phone made available for pt to call family per request.
[2025-06-12 03:44] VITALS: BP 92/57; PULSE 98; RESP 20; TEMP 36.3; O2SAT 95
--- NOTE | 2025-06-12 03:51 | PC.NURSE ---
pt ambulated to bathroom with steady gate, states she doesn't feel she is leaning to the left anymore.
[2025-06-12 05:50] VITALS: BP 94/60; PULSE 92; RESP 16; TEMP 36.4; O2SAT 95
[2025-06-12 06:52] VITALS: BP 94/60; PULSE 92; RESP 16; TEMP 36.4; O2SAT 95
== END 2025-06-12 06:53 | disposition home or self-care (01) ==
PROVIDERS: Emergency Provider Emergency Medicine; PCP Internal Medicine
DX: R53.1 Weakness (principal); E87.6 Hypokalemia; E83.42 Hypomagnesemia; F10.10 Alcohol abuse, uncomplicated; Y90.8 Blood alcohol level of 240 mg/100 ml or more; R29.702 NIHSS score 2; K70.30 Alcoholic cirrhosis of liver without ascites; F17.210 Nicotine dependence, cigarettes, uncomplicated; Z79.899 Other long term (current) drug therapy
CPT/HCPCS: 36415; 70450; 70496; 70498; 80053; 80307; 82140; 82947; 83735; 84484; 85025; 85610; 93005; 96365; 96366; 99285; J3475; Q9967

== ENCOUNTER → 2025-06-11 23:01 | Outpatient (BNV) | payer MEDICARE, MEDICAID, SELFPAY | PROVIDERS: Emergency Provider Emergency Medicine; PCP Internal Medicine; Visit Provider Radiology Neuroradiology | DX: G81.92 Hemiplegia, unspecified affecting left dominant side (principal) | CPT/HCPCS: 70450; 70496; 70498 ==

== ENCOUNTER → 2025-06-11 23:05 | Outpatient (BNV) | payer MEDICARE, MEDICAID, SELFPAY | PROVIDERS: Emergency Provider Emergency Medicine; PCP Internal Medicine; Visit Provider Internal Medicine Cardiovascular Disease | DX: I63.9 Cerebral infarction, unspecified (principal) | CPT/HCPCS: 93010 ==

== ENCOUNTER 2025-07-01 22:57 | Emergency (ER) | payer MEDICARE, MEDICAID, SELFPAY ==
--- NOTE | ~2025-07-01 | CT_ITS ---
CLINICAL HISTORY: fall, etoh CT cervical spine without contrast Comparison: CT - CT HEAD NECK ANGIOGRAPHY WITH IV CONTRAST STROKE - 06/11/25 22:57 EDT Findings: Bony alignment of the cervical vertebral bodies is anatomic. No fracture or prevertebral soft tissue swelling. Disc space heights are well preserved. Bony central canal is widely patent. Upper airway is patent. No apical pneumothorax. IMPRESSION: No fracture. This document has been electronically signed by: Sam Dao MD on 07/02/2025 02:44:46
--- NOTE | ~2025-07-01 | CT_ITS ---
CLINICAL HISTORY: fall, etoh CT head without contrast Comparison: CT/SR - CT HEAD FOR STROKE - 06/11/25 23:03 EDT Findings: There is generalized cerebral and cerebellar atrophy, unchanged compared to prior study. However, this is greater than expected for a patient of this age. The size and shape of the ventricular system is within normal limits for this degree of atrophy. Unchanged scattered areas of low-attenuation within the deep white matter. Sam-white differentiation is preserved. No midline shift or mass effect. No intracranial hemorrhage. No calvarial fractures. IMPRESSION: 1. No acute intracranial findings. Specifically, no fracture or intracranial hemorrhage. 2. Atrophy greater than expected for age. This document has been electronically signed by: Sam Dao MD on 07/02/2025 02:44:18
[2025-07-01 23:02] VITALS: BP 108/74; BP 124/88; PULSE 91; RESP 20; TEMP 36.4; O2SAT 98; BMI 22.3
[2025-07-01 23:09] VITALS: BP 96/65; PULSE 90; RESP 16; TEMP 36.6; O2SAT 96
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
--- OUTSIDE RECORDS SUMMARY | 2025-07-01 23:37 | XMS_ITS | Clinical Summary ---
Author Organization [facility] Address [address] [place] [phone] Phone Care Team Providers Care Gold Miner Blasting Name Role Phone Joan Torres MD Primary Care Provid er Allergies No known active allergies Medications ALPRAZolam (XANAX) 1 MG tablet Take 1 mg by mouth 3 (three) times a day as needed. 06/22/2023 Active amoxicillin-cla vulanate (AUGMENTIN) 875-125 mg per tablet Take 1 tablet by mouth 2 (two) times a day. 05/14/2023 Active cloNIDine HCL (CATAPRES) 0.1 MG tablet Take 0.1 mg by mouth nightly at bedtime as needed. 05/23/2023 Active pantoprazole (PROTONIX) 40 MG tablet Take 1 tablet by mouth every morning. 05/28/2023 Active traZODone (DESYREL) 50 MG tablet 05/26/2023 Active Social History Tobacco Use Types Packs/Day Years [...] on file Sexual Orientation Not on file Last Filed Vital Signs Vital Sign Reading Time Taken Comments Blood Pressure 130/90 06/27/2023 2:15 AM EDT Pulse 102 06/27/2023 2:04 AM EDT Temperature 35.5 C (95.9 F) 06/27/2023 2:15 AM EDT Respiratory Rate 16 06/27/2023 2:04 AM EDT Oxygen Saturation 97% 06/27/2023 2:15 AM EDT Inhaled Oxygen Concentration - - Weight 54.4 kg (120 lb) 06/27/2023 2:04 AM EDT Height 162.6 cm (5' 4 ) 06/27/2023 2:04 AM EDT Body Mass Index 20.6 06/27/2023 2:04 AM EDT Plan of Treatment Health Maintenance Due Date Last Done Comments Adult Td,Tdap Booster 1973 LIPID PANEL 1973 DEPRESSION SCREENING 1985 SMOKING Hx and SMOKELESS TOB ACCO SCREENING 1986 HEPATITIS C SCREENING 1991 HIV ONE-TIME SCREENING (18-6 5 YEARS) 1991 PAP SMEAR 1994 MAMMOGRAM 2013 COLOGUARD 2018 COLONOSCOPY 2018 COLORECTAL CANCER SCREENING 2018 FIT TEST 2018 FOBT 2018 SIGMOIDOSCOPY 2018 VIRTUAL COLONOSCOPY 2018 PNEUMOCOCCAL VACCINES (50+ y ears) (1 of 1 - PCV) 2023 ZOSTER VACCINES (1 of 2) 2023 COVID-19 VACCINE ( - 2023-2 5 season) 2024 HEPATITIS A VACCINES Aged Out No long er eligible based on patient's age to complete this topic HIB VACCINES Aged Out No longer eligi ble based on patient's age to complete this topic MENINGOCOCCAL VACCINES (ACWY) Aged Out No longer eligible based on patient's age to complete this topic MENINGOCOCCAL VACCINES (B) Aged Out N o longer eligible based on patient's age to complete this topic Medical Devices Not on file Insurance [facility] & B [facility] PART A & B Member Subscriber Plan / Payer (Ef fective 2023-) Name:Adelita Ibarra Member ID:[id number] Relation to Subscriber:Self Name:Adelita Ibarra Subscriber ID:[id number] Payer ID:[id number] Group ID:Not on file Type:Medicare Address: [employer] [id number] [facility] & B [facility] & B [facility] PART A & B [place] MED[place] PART A & B Care Teams Gold Miner Blasting Relationship Specialty Start Date End Date Joan Torres MD [address] [place] [address] PCP - General Internal Medicine 06/27/23 Additional Source Comments The information contained in this document represents components of the legal health record. It is not the complete legal health record.[facility]
--- OUTSIDE RECORDS SUMMARY | 2025-07-01 23:37 | XMS_ITS | Encounter Summary ---
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 Name Role Phone Joan Torres MD Primary Care Provid er Encounter Details Date Type Department Care Team (Late st Contact Info) Description 06/27/2023 Procedure Pass [facility], Ct Scan - [address] [id number] Social History Tobacco Use Types Packs/Day Years [...] 2:05 AM EDT Marcie Jernigan RN * [place] Suicide Severity Rating Scale (Screener/Recent Self-Report) Question [...] on filedocumented in this encounter Care Teams Vacuum Cleaner Mechanic Relationship Specialty Start Date End Date Joan Torres MD [address] [place] [address] PCP - General Internal Medicine 06/27/23 documented as of this encounter Additional Source Comments The information contained in this document represents components of the legal health record. It is not the complete legal health record.[facility]
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
[2025-07-02 02:06] VITALS: BP 98/55; PULSE 98; RESP 16; TEMP 36.4; O2SAT 93
[2025-07-02] MEDS: Diphth,Pertus(ACell),Tet Adult 0.5 ML SYRINGE IM (02:08)
[2025-07-02 05:05] VITALS: BP 99/58; PULSE 84; RESP 14; TEMP 36.7; O2SAT 93
== END 2025-07-02 05:41 | disposition home or self-care (01) ==
PROVIDERS: Emergency Provider Emergency Medicine
DX: S01.81XA Laceration without foreign body of other part of head, initial encounter (principal); W19.XXXA Unspecified fall, initial encounter; Y93.9 Activity, unspecified; Y92.9 Unspecified place or not applicable; Y99.9 Unspecified external cause status; F10.129 Alcohol abuse with intoxication, unspecified; R51.9 Headache, unspecified; Z23 Encounter for immunization
CPT/HCPCS: 12011; 70450; 72125; 90471; 90715; 99284

== ENCOUNTER → 2025-07-02 00:12 | Outpatient (BNV) | payer MEDICARE, MEDICAID, SELFPAY | PROVIDERS: Emergency Provider Emergency Medicine; Visit Provider Radiology Diagnostic Radiology | DX: S09.90XA Unspecified injury of head, initial encounter (principal); W19.XXXA Unspecified fall, initial encounter | CPT/HCPCS: 70450; 72125 ==

== ENCOUNTER 2025-07-16 14:38 | Emergency (ER) | payer MEDICARE, MEDICAID, SELFPAY ==
--- NOTE | ~2025-07-16 | CT_ITS ---
EXAMINATION: CT HEAD WITHOUT CONTRAST CLINICAL INFORMATION: Fall with delayed ataxia. COMPARISON: 07/02/2025, 06/11/2025, 11/28/2024, dating back to 06/27/2017. TECHNIQUE: Contiguous axial imaging was performed from the skull base to vertex without intravenous administration of contrast. This CT examination was performed using dose optimization techniques as appropriate, variously including the following: *Automated exposure control *Adjustment of mA and/or kV according to patient size (this includes techniques or standardized protocols for targeted exams where dose is matched to indication/reason for exam; i.e. extremities or head) *Use of iterative reconstruction technique FINDINGS: There is no evidence of intracranial hemorrhage or extra-axial fluid collection. There is no mass effect, or edema. No CT evidence of acute territorial infarct. Mild frontal lobe atrophy bilaterally. Ventricles, sulci, and cisterns are otherwise normal in size and configuration for patient age. No hydrocephalus. No midline shift. Negative hyperdense MCA sign. Negative insular ribbon sign. No significant white matter attenuation abnormality. Normal pituitary. Globes and orbital contents image normally. No extracranial soft tissue abnormalities. The paranasal sinuses, mastoid air cells, and tympanic cavities are normally aerated. No suspicious bony abnormalities. There are no acute fractures evident. CT/CT head/brain wo IV con IMPRESSION: 1. No acute intracranial abnormality. 2. Mild bifrontal atrophy. Electronically signed by: Roverto Lozano MD 07/16/2025 04:48 PM EDT
--- NOTE | ~2025-07-16 | XR_ITS ---
CLINICAL HISTORY: hypoxia, fall 1 view chest x-ray Comparison: CR - XR CHEST 1V - 11/28/24 22:12 EST Findings: No consolidation or effusion. Normal size heart. No acute fracture. IMPRESSION: 1. No acute findings. This document has been electronically signed by: Russell Cho MD on 07/16/2025 19:48:07
[2025-07-16 15:15] VITALS: BP 98/58; PULSE 83; RESP 16; TEMP 36.2; O2SAT 99; BMI 23.8
--- NOTE | 2025-07-16 15:15 | ED_ITS ---
HPI - Head Injury General Chief complaint: Head Injury Stated complaint: Head injury - vomiting, off balance Time Seen by Provider: 07/16/25 15:33 History of Present Illness ED Provider: Baron Blancas MD HPI Narrative: 49-year-old female alcohol use disorder cirrhosis active alcohol drinking. Patient had a fall and head injury approximately 2 weeks ago on the 02 of July fell from standing height on her porch. At that time brain imaging negative for ICH she did have a small facial laceration that was repaired. She said since that time she has felt off balance. Occasional intermittent vomiting no vomiting in the last few hours. Denies vision symptoms speech change focal or lateralizing neurologic deficits Related Data Previous Rx's ?Medication ?Instructions ?Recorded lactulose 10 gram/15 mL oral 45 ml PO TID #12,150 mL 0 02/20/24 solution trazodone 50 mg tablet 50 mg PO BEDTIME PRN for ins omnia 10/15/24 90 days #90 tabs sertraline 50 mg tablet 50 mg PO DAILY 90 days #90 t abs 01/11/25 folic acid 1 mg tablet 1 mg PO DAILY #30 tabs 03/05 thiamine HCl (vitamin B1) 100 mg 100 mg PO DAILY #30 t abs 03/05/25 tablet (Vitamin B-1) clonidine HCl 0.1 mg tablet 0.1 mg PO BEDTIME PRN anxi ety #30 04/09/25 tabs cyclobenzaprine 5 mg tablet 5 mg PO BEDTIME PRN muscle spasm 05/09/25 #20 tabs alprazolam 1 mg tablet 1 mg PO TID PRN anxiety #86 tabs 07/08/25 Allergies Allergy/AdvReac Type Severity Reaction Status Date / Time No Known Allergies (No Known Allergy Verified 07/16/25 15:18 Allergies*) [facility] Past Medical History Medical History Alcohol intoxication 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 Mother No problems noted. Family/Other Substance use disorder Maternal Grandmother Ovarian cancer Maternal Aunt Ovarian cancer Social History Social History Household Members: Spouse Housing: House Do you presently have visiting nurse or other home services: No Alcohol intake: current Alcohol intake frequency: 3 or more drinks per day Alcohol type: beer and wine Patient Tobacco Use Status: Current everyday Tobacco user Tobacco use type: Cigarette Cigarettes Per Day: 15 e-Cigarette/Vaping Use: Never Used Second Hand Smoke Exposure: Yes Use of substances other than those prescribed or required for medical reasons: Yes Substance Use Type: Marijuana Substance Use Frequency: Occasionally Advance Directives: No Advance Directives Information Provided: No Patient : No service: No Current occupational status: unemployed Cognitive needs: No Hearing needs: No Vision needs: No Physical Exam 2 Exam: Exam: EXAM: Gen: Alert, awake, well appearing, well hydrated. Head: Atraumatic Eyes: Anicteric, Normal conjunctiva. Pupils 2-3 mm symmetric and reactive. Anicteric ENT: Moist mucosa, no pallor. ?Well healing sutured facial laceration just anterior to the left ear Neck: Supple. No midline tenderness no masses Skin: ?No observable rash or bruising on exposed or examined skin Respiratory: Breathing comfortably, No distress.Clear to auscultation bilaterally, symmetric chest expansion, No wheeze, rales, ronchi. Cardiovascular: Regular rate and rhythm. No murmurs or rub. Well perfused periphery, warm extremities. No edema. ? Abdominal: No focal tenderness. Soft, no objective distension. No palpable masses or obvious organomegaly. ?No guarding, no rebound tenderness or other peritoneal findings. : No flank tenderness. Neuro: Alert. Gross movement of all extremities intact. ?No ataxia. Normal finger-nose test. EOMI. Pupils as above normal Psych: Calm. Cooperative. MSK: No grossly visible deformity. Vital signs: See flowsheet Vital Signs: Vital Signs: Last Vital Signs Temp 98.7 F 07/17/25 03:47 Pulse 92 07/17/25 03:47 Resp 18 07/17/25 03:47 BP 116/71 07/17/25 03:47 Pulse Ox 95 07/17/25 03:47 O2 Del Method Room Air 07/17/25 03:47 BMI result Body Mass Index 23.8 Course Course Course Narrative: This is an RME: Additional HPI, ROS, PE not included below will be deferred to primary provider. RME assessment and note performed by: Cuca Joel PA-C This is a [id number], with a hx of alcoholic cirrhosis, MDD, who presents to the ER with a complaint of difficulty walking, nausea, vomiting s/p fall. Patient was seen here 2 weeks ago where she fell, lacerated her left ear. She states that since this fall she has had a difficult time with ambulation. She had a normal CT scan at that time. Patient admits to seeing a black cat in triage? She has a history of alcohol use disorder, does report that she has been ?cutting down?, last drank today. Plan: Labs, EKG, CT head Reevaluation(s) Reevaluation #1: 7:07 PM 07/16/2025 [facility] I was notified around this time that the patient's blood pressure had dropped 86/51 she reported some heaviness of the chest and O2 saturation was down to 85%. I immediately came to the bedside found the patient awake alert oriented did a bedside echo and fast which were reassuring IVC did not suggest severe hypovolemia and the patient appeared well-perfused. Ordered 1 L of fluid. Her sat at the time of my arrival was 93%. Chest x-ray ordered. Reevaluation #2: Patient signed out to me awaiting evaluation of her gait while she is sober. She is currently sober as evidenced by a steady gait, clear speech. I had an extensive discussion with the patient regarding recovery and treatment for alcohol use disorder. She is just starting to show slight evidence of withdrawal. States she drinks about 10 nips a day. Her score on the CIWA scale is 5. She was offered recovery and inpatient treatment but she is refusing at this time. Using shared decision making, plan for discharge home to follow-up with primary care and/or specialist. Patient understands and agrees with plan for discharge. Discharged home in stable condition. Time: 02:55 Medications Administered Discontinued Medications Generic Name Dose Route Start Last Admin Trade Name Freq PRN Reason Stop Dose Admin Al Hydroxide/Mg Hydroxide 30 ml 07/17/25 01:58 07/17/25 02:53 Magnesium Hydrox/Alum Hydrox 30 Ml Oral.Susp PO 07/17/25 01:59 30 ml ONCE ONE Administration Diazepam 10 mg 07/16/25 18:42 07/16/25 19:45 Diazepam 5 Mg Tablet PO 07/16/25 18:43 Not Given ONCE ONE Diazepam 5 mg 07/16/25 20:00 07/16/25 19:48 Diazepam 5 Mg Tablet PO 07/17/25 12:01 5 mg RQ4H WHILE AWAKE KAITY Administration Folic Acid 1 mg 07/16/25 18:48 07/16/25 19:48 Folic Acid 1 Mg Tablet PO 07/16/25 18:49 1 mg ONCE ONE Administration Sodium Chloride 1,000 mls @ 999 mls/hr 07/16/25 19:15 07/16/25 20:08 Ns IV 07/16/25 20:15 Infused .Q1H1M KAITY Infusion Lidocaine HCl 15 ml 07/17/25 01:58 07/17/25 02:53 Lidocaine Hcl Viscous 2 % 15 Ml Solution MUCOUS MEM 07/17/25 01:59 15 ml ONCE ONE Administration Thiamine HCl 200 mg 07/16/25 18:41 07/16/25 19:48 Thiamine Hcl 100 Mg Tablet PO 07/16/25 18:42 200 mg ONCE ONE Administration Medical Decision Making Medical Decision Making MDM Narrative: Medical Decision Makin-year-old female with alcoholic cirrhosis head injury 2 weeks ago. Noted brain atrophy but no traumatic injuries at that time. Laceration well healing I have removed the sutures see procedure note. Repeat head CT given the patient's atrophy and persistent self-described ataxic symptoms despite reassuring neurologic exam here. Repeated labs and chemistry non actionable. __ GAIT ASSESSMENT SHORTLY AFTER ARRIVAL PATIENT UNSTEADY BUT NO GROSS ATAXIA NO FALLING TO 1 SPECIFIC SIDE. THE PATIENT'S COUSIN WITH A LIVES WITH HER OR VISITS FREQUENTLY CALLED AND REPORTED THAT SHE IS COMPLETELY OFF BALANCE AND DOES NOT THINK IT IS ATTRIBUTABLE TO INTOXICATION SAYS SHE IS NOT SAFE FOR DISCHARGE HOME. FOR THIS REASON THINK IT IS REASONABLE TO HAVE THE PATIENT COMPLETELY METABOLIZE AND SOBER UP AND ASSESS HER GAIT WITH A 0 ALCOHOL LEVEL AND/OR WITH PHYSICAL THERAPY PRESENCE. BY MY CALCULATION SHE SHOULD BE NEAR FULL METABOLISM OVER ALCOHOL LEVEL WHICH WAS DRAWN AT 1601 ON BY ABOUT 06:00 ON THE Preliminary Favored Differential Diagnosis: Concussion, ICH, among additional considered etiologies Testing Interpreted Independently: ?See below for details Radiology or Lab testing Results Reviewed: ?See below for details Consults: ?See below for details Independent Historians/External Chart Reviews: ?See below for details Social Determinants of Health Impacting MDM/Planning: ?See below for details Lab Data 07/16/25 16:01 07/16/25 16:01 Labs: Lab Results 07/16/25 07/16/25 07/16/25 Range/Units 16:01 17:16 19:04 WBC 6.8 (4.8-10.8) X10*3/uL RBC 3.34 L (4.20-5.50) X10*6/uL Hgb 11.4 L (12.0-16.0) g/dl Hct 33.7 L (37.0-47.0) % MCV 100.9 H (80.0-98.0) fL MCH 34.1 H (27.0-33.0) pg MCHC 33.8 (31.0-35.0) g/dl RDW 15.9 (11.0-16.0) % Plt Count 119 L (160-400) X10*3/uL MPV 12.1 (9.4-12.3) fL Immature Gran % (Auto) 0.1 (0.0-0.4) % Neut % (Auto) 53.3 (45-73) % Lymph % (Auto) 33.3 (20-40) % [place] % (Auto) 11.3 H (2-11) % Eos % (Auto) 1.3 (0-4) % Baso % (Auto) 0.7 (0-2) % Lymph # (Auto) 2.3 (1.2-4.9) X10*3/uL [place] # (Auto) 0.8 (0.1-1.2) X10*3/uL Eos # (Auto) 0.1 (0.0-0.4) X10*3/uL Baso # (Auto) 0.1 (0.0-0.2) X10*3/uL Abs Immat Gran (auto) 0.01 (0.00-0.03) X10*3/uL Absolute Neuts (auto) 3.6 (2.0-8.3) x10*3/uL Absolute Nucleated RBC 0.000 (0.0-0.012) X10*3/uL Nucleated RBC % (auto) 0.0 (0.0-0.2) /100WBC Sodium 140 (135-145) mmol/L Potassium 3.3 (3.3-5.1) mmol/L Chloride 106 (96-108) mmol/L Carbon Dioxide 28 (22-29) mmol/L Anion Gap 9 L (12-20) BUN 7 L (9-16) mg/dL Creatinine 0.71 (0.5-1.4) mg/dL Estim Creat Clear Calc 80.9 Estimated GFR > 60 Random Glucose 94 (60-115) mg/dL Calcium 8.6 (8.4-10.2) mg/dL Magnesium 1.9 (1.6-2.6) mg/dL Total Bilirubin 0.7 (0.0-1.0) mg/dL Direct Bilirubin 0.4 (0.0-0.5) mg/dL AST 102 H (5-31) U/L ALT 25 (0-31) U/L Alkaline Phosphatase 139 H (39-117) U/L Ammonia 31 (13-55) umol/L Troponin I High Sens < 2.7 (<3.5-17.0) ng/L Total Protein 7.3 (6.5-8.0) g/dL Albumin 3.1 L (3.5-5.0) g/dL Vitamin B12 600 (200-900) pg/mL Folate 2.9 L (> or = 4.0) ng/mL Urine Opiates Screen Not Detected (Not Detect) Ur Buprenorphine Scrn Not Detected (Not Detect) ng/mL Ur Oxycodone Screen Not Detected (Not Detect) ng/mL Urine Methadone Screen Not Detected (Not Detect) ng/mL Urine Fentanyl Screen Not Detected (Not Detect) Ur Barbiturates Screen Not Detected (Not Detect) Ur Phencyclidine Scrn Not Detected (Not Detect) Ur Amphetamines Screen Not Detected (Not Detect) U Benzodiazepines Scrn Not Detected (Not Detect) Urine Cocaine Screen Not Detected (Not Detect) U Marijuana (THC) Screen POSITIVE H (Not Detect) Ethyl Alcohol 232 mg/dL COVID-19 (ANTONIO) Negative (Negative) COVID-19 Clin Com See Note Influenza Type A (DAYANARA) Negative (Negative) Influenza Type B (DAYANARA) Negative (Negative) Influenza A & B Note See Note Procedures Procedure Narrative Procedure Narrative: Suture removal procedure note. Sutures to the left side of the face were excised without complications. No bleeding. Wound appears well healed with good approximation EMERGENCY ULTRASOUND INTERPRETATION-Limited Echocardiography [This study was ordered, performed, and interpreted by myself. The study reveals: Impression: NORMAL LV FUNCTION, NO RV DYSFUNCTION, NO PERICARDIAL EFFUSION] [Emergent Cardiac for Indication: Views Used: PLAX, PSSA, ] IVC Pericardial Effusion/Tamponade Findings: NONE RV Dilation (> LV diam in 4ch apical): NONE Global LV Fxn: NORMAL IVC Dilation and Resp Variation: NORMAL Performed by: MD Yonny Images were stored CPT:98254] _ EMERGENCY ULTRASOUND INTERPRETATION-Point of Care Trauma (FAST) Limited Abdominal [This study was ordered, performed, and interpreted by myself. The study reveals: Impression: -Peritoneum: NO FREE FLUID [Indication: Unexplained hypotension Fluid (FAST Views): -Hepatorenal: NEGATIVE Other views: Performed by: Baron Blancas MD Images were stored CPT: 91401, Discharge Plan Discharge Clinical Impression: Alcohol use disorder, Frequent falls Patient Disposition: Home, Self-Care Instructions: Alcohol Use Disorder (ED) Additional Instructions: Alcohol use disorder You were seen in the Emergency Department today for treatment of alcohol use disorder.? You may have been given medications to help with your withdrawal symptoms.? Please do not drink alcohol with them. This is very dangerous and can cause respiratory depression or other adverse reactions depending on the medication. If you would like to cut down or stop your alcohol use please consider calling our outpatient Addiction Treatment office:? [facility] (M-F 9a-5p) [address] [place] [address] [address] You have also been given a list of treatment providers in the area that can assist as well.? If you experience seizures, vomiting blood, black stools, falls, severe headache, chest pain, fevers, trouble breathing, hallucinations or any other concerns you need to call 911 or seek immediate care. Please stay hydrated. Prescriptions: No Action lactulose 10 gram/15 mL solution 45 ml PO TID Qty: 08060 0RF trazodone 50 mg tablet 50 mg PO BEDTIME PRN (Reason: for insomnia) 90 Days Qty: 90 1RF sertraline 50 mg tablet 50 mg PO DAILY 90 Days Qty: 90 1RF clonidine HCl 0.1 mg tablet 0.1 mg PO BEDTIME PRN (Reason: anxiety) Qty: 30 5RF cyclobenzaprine 5 mg tablet 5 mg PO BEDTIME PRN (Reason: muscle spasm) Qty: 20 0RF alprazolam 1 mg tablet 1 mg PO TID PRN (Reason: anxiety) Qty: 86 0RF folic acid 1 mg tablet 1 mg PO DAILY Qty: 30 0RF thiamine HCl (vitamin B1) [Vitamin B-1] 100 mg tablet 100 mg PO DAILY Qty: 30 3RF Interventions: ED Discharge Assessment Last Done: 07/17/25 03:47 Discharge Date/Time: 07/17/25 03:47 Print Language: Bengali
--- NOTE | 2025-07-16 15:22 | ECG_ITS ---
Test Reason : DIZZINESS Blood Pressure : */* mmHG Vent. Rate : 74 BPM Atrial Rate : 74 BPM P-R Int : 152 ms QRS Dur : 78 ms QT Int : 380 ms P-R-T Axes : 28 4 10 degrees QTcB Int : 421 ms Normal sinus rhythm Normal ECG When compared with ECG of 11-Jun-2025 23:16, No significant change was found Referred By: Cuca Joel Electronically Signed By: CRESENCIO CERNA
[2025-07-16 15:37] VITALS: BP 91/54; PULSE 78; RESP 16; TEMP 36.7; O2SAT 95
[2025-07-16 16:11] LABS: MANUAL DIFF FLAG NO
[2025-07-16 16:15] LABS: Hematocrit 33.7 % (37.0-47.0); Hemoglobin 11.4 g/dl (12.0-16.0); Imm Gran Abs Auto 0.01 X10*3/uL (0.00-0.03); Imm Gran Pct Auto 0.1 % (0.0-0.4); Lymphocytes Absolute Auto 2.3 X10*3/uL (1.2-4.9); Mean Corpuscular HGB Conc 33.8 g/dl (31.0-35.0); Mean Corpuscular Hemoglobin 34.1 pg (27.0-33.0); Mean Corpuscular Volume 100.9 fL (80.0-98.0); NRBC Abs Auto 0.000 X10*3/uL (0.0-0.012); NRBC Pct Auto 0.0 /100WBC (0.0-0.2); Platelet Count 119 X10*3/uL (160-400); Red Blood Count 3.34 X10*6/uL (4.20-5.50); White Blood Count 6.8 X10*3/uL (4.8-10.8)
[2025-07-16 16:21] LABS: Ammonia 31 umol/L (13-55)
[2025-07-16 16:28] LABS: Alanine Aminotransferase 25 U/L (0-31); Albumin Level 3.1 g/dL (3.5-5.0); Alkaline Phosphatase 139 U/L (39-117); Anion Gap 9 (12-20); Aspartate Amino Transferase 102 U/L (5-31); Blood Urea Nitrogen 7 mg/dL (9-16); Calcium 8.6 mg/dL (8.4-10.2); Carbon Dioxide 28 mmol/L (22-29); Chloride 106 mmol/L (96-108); Creatinine Clr Calc Pharmacy 80.9; Estimated Glomerular Filt Rate > 60; Magnesium 1.9 mg/dL (1.6-2.6); Potassium 3.3 mmol/L (3.3-5.1); Sodium 140 mmol/L (135-145); Total Protein 7.3 g/dL (6.5-8.0)
--- NOTE | 2025-07-16 16:36 | PC.NURSE ---
Patient's cousin Vargas Lomas called to provide contact number: .
[2025-07-16 16:38] LABS: COVID-19 Test Negative (Negative); IDNOW Serial# 58CA691E
[2025-07-16 16:39] LABS: IDNOW Serial# 55D5AD1C; Influenza B2 Negative (Negative)
[2025-07-16 16:42] LABS: Troponin-I High Sensitivity < 2.7 ng/L (<3.5-17.0)
[2025-07-16 17:37] LABS: Cannabinoid Screen Urine POSITIVE (Not Detect)
--- NOTE | 2025-07-16 17:50 | PC.NURSE ---
Patient ambulated out of bed with Dr. Blancas. Slightly unsteady, ETOH 232. Returned to bed without issue. Plan to reassess gait once sober and determine disposition at that time. Care ongoing by this RN.
[2025-07-16 18:31] VITALS: BP 92/54; PULSE 78; RESP 15; TEMP 36.7; O2SAT 93
--- OUTSIDE RECORDS SUMMARY | 2025-07-16 18:53 | XMS_ITS | Clinical Summary ---
Author Organization [facility] Address [address] [place] [address] Phone Care Team Providers Care Process Laboratory Specialist Name Role Phone Joan Torres MD Primary [...] 2023 ZOSTER VACCINES (1 of 2) 2023 INFLUENZA VACCINE (#1) 2025 COVID-19 VACCINE (1 - 2023-2 5 season) 2025 HEPATITIS A VACCINES Aged Out No long [...] topic Medical Devices Not on file Insurance [facility] MEDICARE PART A & B [facility] MEDICARE PART A & B Member Subscriber Plan / Payer ( fective 2023-) Name:Adelita Ibarra Member ID:[id number] Relation to Subscriber:Self Name:Adelita Ibarra Subscriber ID:[id number] Payer ID:[id number] Group ID:Not on file Type:Medicare Address: [employer] [id number] [facility] MEDICARE PART A & B [place] MED[place] PART A & B [facility] MEDIC[facility] PART A & [place] PART A & B Care Teams Process Laboratory Specialist Relationship Specialty Start Date End Date Joan Torres MD [address] [place] [address] PCP - General Internal Medicine 06/27/23 Additional Source Comments The information contained in this document represents components of the legal health record. It is not the complete legal health record.[facility]
--- OUTSIDE RECORDS SUMMARY | 2025-07-16 18:53 | XMS_ITS | Encounter Summary ---
Author Organization [facility] Address [address] [place] [address] Phone Care Team Providers Care Inpatient Care Manager Rn Name Role Phone Joan Torres MD Primary Care Provid er Encounter Details Date Type Department Care Team (Late st Contact Info) Description 06/27/2023 Procedure Pass [facility] [place], Ct Scan - [address] [address] Social History Tobacco Use Types Packs/Day Years [...] 2:05 AM EDT Marcie Jernigan RN * [place] Suicide Severity Rating Scale (Screener/Recent Self-Report) Question [...] on filedocumented in this encounter Care Teams Inpatient Care Manager Rn Relationship Specialty Start Date End Date Joan Torres MD [address] [place] [address] PCP - General Internal Medicine 06/27/23 documented as of this encounter Additional Source Comments The information contained in this document represents components of the legal health record. It is not the complete legal health record.[facility]
--- OUTSIDE RECORDS SUMMARY | 2025-07-16 18:53 | XMS_ITS | Encounter Summary ---
Author Organization [facility] Address [address] [place] [address] Phone Care Team Providers Care Police Clerk Name Role Phone Joan Torres MD Primary Care Provid er Encounter Details Date Type Department Care Team (Late st Contact Info) Description 06/27/2023 Procedure Pass [facility], Ct Scan - [address] [address] Social History Tobacco Use Types Packs/Day Years [...] 2:05 AM EDT Marcie Jernigan RN * [place] Suicide Severity Rating Scale (Screener/Recent Self-Report) Question [...] on filedocumented in this encounter Care Teams Police Clerk Relationship Specialty Start Date End Date Joan Torres MD [address] [place] [address] PCP - General Internal Medicine 06/27/23 documented as of this encounter Additional Source Comments The information contained in this document represents components of the legal health record. It is not the complete legal health record.[facility]
[2025-07-16 19:20] VITALS: BP 95/59; PULSE 75; RESP 16; TEMP 36.6; O2SAT 95
--- NOTE | 2025-07-16 19:50 | PC.NURSE ---
Held Valium 10mg per Dr. Blancas orders. CIWA scale 2 at this time. Medicated with Valium 5mg. Vital signs stable at this time, soft BPs. Last BP 100/60. Care ongoing by this RN.
[2025-07-16 20:02] LABS: Folate 2.9 ng/mL (> or = 4.0); Vitamin B12 600 pg/mL (200-900)
[2025-07-16 21:00] VITALS: BP 94/50; PULSE 77; RESP 16; TEMP 36.7; O2SAT 96
[2025-07-17 00:35] VITALS: BP 96/54; PULSE 86; RESP 12; TEMP 36.9; O2SAT 95
--- NOTE | 2025-07-17 02:07 | PC.NURSE ---
patient ambulatory with steady gait
[2025-07-17 02:49] VITALS: BP 116/71; PULSE 92; RESP 18; TEMP 37.1; O2SAT 95
[2025-07-17] MEDS: Magnesium Hydrox/Alum Hydrox 30 ML ORAL.SUSP PO (02:53)
[2025-07-17] MEDS: Lidocaine HCl Viscous 2 % 15 ML SOLUTION MUCOUS MEM (02:53)
[2025-07-17 03:47] VITALS: BP 116/71; PULSE 92; RESP 18; TEMP 37.1; O2SAT 95
== END 2025-07-17 03:47 | disposition home or self-care (01) ==
PROVIDERS: Emergency Medicine; Physician Assistant Medical; Emergency Provider Emergency Medicine; PCP Internal Medicine
DX: F10.929 Alcohol use, unspecified with intoxication, unspecified (principal); Y90.7 Blood alcohol level of 200-239 mg/100 ml; R26.81 Unsteadiness on feet; Z03.818 Encounter for observation for suspected exposure to other biological agents ruled out; Z91.81 History of falling
CPT/HCPCS: 36415; 70450; 71045; 80048; 80076; 80307; 82140; 82607; 82746; 83735; 84484; 85025; 87502; 87635; 93005; 96360; 99285

== ENCOUNTER → 2025-07-16 15:22 | Outpatient (BNV) | payer MEDICARE, MEDICAID, SELFPAY | PROVIDERS: Emergency Provider Emergency Medicine; PCP Internal Medicine; Visit Provider Internal Medicine | DX: R42 Dizziness and giddiness (principal) | CPT/HCPCS: 93010 ==

== ENCOUNTER → 2025-07-16 15:36 | Outpatient (BNV) | payer MEDICARE, MEDICAID, SELFPAY | PROVIDERS: Emergency Provider Emergency Medicine; PCP Internal Medicine; Visit Provider Radiology Diagnostic Radiology | DX: S09.90XA Unspecified injury of head, initial encounter (principal); R09.02 Hypoxemia | CPT/HCPCS: 70450; 71045 ==

== ENCOUNTER 2025-09-05 15:39 | Outpatient (REF) | payer MEDICARE, MEDICAID, SELFPAY ==
[2025-09-05 17:02] LABS: Hematocrit 30.2 % (37.0-47.0); Hemoglobin 11.0 g/dl (12.0-16.0); Imm Gran Abs Auto 0.05 X10*3/uL (0.00-0.03); Imm Gran Pct Auto 0.5 % (0.0-0.4); Lymphocytes Absolute Auto 2.4 X10*3/uL (1.2-4.9); MANUAL DIFF FLAG SCAN; Mean Corpuscular HGB Conc 36.4 g/dl (31.0-35.0); Mean Corpuscular Hemoglobin 35.5 pg (27.0-33.0); Mean Corpuscular Volume 97.4 fL (80.0-98.0); NRBC Abs Auto 0.000 X10*3/uL (0.0-0.012); NRBC Pct Auto 0.0 /100WBC (0.0-0.2); Platelet Count 208 X10*3/uL (160-400); Red Blood Count 3.10 X10*6/uL (4.20-5.50); SCAN SMEAR FLAG 1; White Blood Count 10.5 X10*3/uL (4.8-10.8)
[2025-09-05 17:55] LABS: Alanine Aminotransferase 18 U/L (0-31); Albumin Level 3.0 g/dL (3.5-5.0); Alkaline Phosphatase 132 U/L (39-117); Anion Gap 21 (12-20); Aspartate Amino Transferase 80 U/L (5-31); Blood Urea Nitrogen 60 mg/dL (9-16); Calcium 8.9 mg/dL (8.4-10.2); Carbon Dioxide 20 mmol/L (22-29); Chloride 91 mmol/L (96-108); Estimated Glomerular Filt Rate 6; Potassium 3.8 mmol/L (3.3-5.1); Sodium 128 mmol/L (135-145); Total Protein 8.3 g/dL (6.5-8.0)
--- OUTSIDE RECORDS SUMMARY | 2025-09-05 18:28 | XMS_ITS | Clinical Summary ---
Author Organization [facility] Address [address] [place] [id number] Phone Care Team Providers Care Military Cook Name Role Phone Joan Torres MD Primary [...] VACCINE (#1) 2025 COVID-19 VACCINE (1 - 2024-2 6 season) 2025 RSV VACCINE (1 - 1-dose 75+ series) 2048 HEPATITIS A VACCINES Aged Out No long [...] on file Insurance [facility] MEDIC[facility] PART A & B [facility] & B [place] PART A & B [facility] MEDIC[facility] PART A & B [facility] MEDIC[facility] PART A & B Care Teams Military Cook Relationship Specialty Start Date End Date Joan Torres MD [address] [place] [address] PCP - General Internal Medicine 06/27/23 Additional Source Comments The information contained in this document represents components of the legal health record. It is not the complete legal health record.[facility]
--- OUTSIDE RECORDS SUMMARY | 2025-09-05 18:28 | XMS_ITS | Encounter Summary ---
Author Organization [facility] Address [address] [place] [address] Phone Care Team Providers Care Concrete Block Molder Name Role Phone Joan Torres MD Primary Care Provid er Encounter Details Date Type Department Care Team (Late st Contact Info) Description 06/27/2023 Procedure Pass [facility], Ct Scan - [address] [address] Social History Tobacco Use Types Packs/Day Years [...] 2:05 AM EDT Marcie Jernigan RN * [place] Suicide Severity Rating Scale (Screener/Recent Self-Report) Question [...] on filedocumented in this encounter Care Teams Concrete Block Molder Relationship Specialty Start Date End Date Joan Torres MD [address] [place] [address] PCP - General Internal Medicine 06/27/23 documented as of this encounter Additional Source Comments The information contained in this document represents components of the legal health record. It is not the complete legal health record.[facility]
--- OUTSIDE RECORDS SUMMARY | 2025-09-05 18:28 | XMS_ITS | Encounter Summary ---
Author Organization [facility] Address [address] [place] [address] Phone Care Team Providers Care Coating Machine Operator Name Role Phone Joan Torres MD Primary Care Provid er Encounter Details Date Type Department Care Team (Late st Contact Info) Description 06/27/2023 Procedure Pass [facility], Ct Scan - [address] [address] Social History Tobacco Use Types Packs/Day Years [...] 2:05 AM EDT Marcie Jernigan RN * [place] Suicide Severity Rating Scale (Screener/Recent Self-Report) Question [...] on filedocumented in this encounter Care Teams Coating Machine Operator Relationship Specialty Start Date End Date Joan Torres MD [address] [place] [address] PCP - General Internal Medicine 06/27/23 documented as of this encounter Additional Source Comments The information contained in this document represents components of the legal health record. It is not the complete legal health record.[facility]
== END 2025-09-05 15:40 | disposition home or self-care (01) ==
LOC: HO.LAB 15:39
PROVIDERS: PCP Internal Medicine; Visit Provider Internal Medicine Gastroenterology
DX: Z13.89 Encounter for screening for other disorder (principal)
CPT/HCPCS: 36415; 80053; 85025; 86140

== ENCOUNTER 2025-09-05 18:46 | Inpatient (IN) | payer MEDICARE, MEDICAID, SELFPAY ==
--- NOTE | ~2025-09-05 | US_ITS ---
EXAMINATION: US GUIDED PARACENTESIS CLINICAL INFORMATION: Moderate to severe ascites. COMPARISON: None available. TECHNIQUE: Allowing explaining ultrasound-guided paracentesis procedure, benefits and risk, a written consent was obtained. Patient was placed supine on ultrasound stretcher and preliminary ultrasound imaging was obtained. An optimal site was selected along the right lower quadrant and marked on the skin. Marked site was cleaned and draped in usual sterile manner. 1% lidocaine was injected at puncture site. A small skin incision a 4 [place] Jolie[place] catheter was advanced through the skin into the right lower quadrant peritoneal space. After observing fluid return stylet was withdrawn and fluid was collected and 50 mL significant for diagnostic purpose. The catheter was then connected to vacuum bottle via connecting cannula. After draining 4 L of fluid the the catheter was blocked and removed. The left lower quadrant was subsequently accessed via a 4 [place] catheter and 1 L of fluid was drained. Complete hemostasis achieved at both these sites and a sterile dressing applied post procedure. Patient tolerated procedure extremely well. FINDINGS: On preliminary ultrasound imaging there is moderate to large peritoneal fluid. Approximately 5.1 L of clear yellowish fluid was drained from the right lower quadrant. Some of this fluid was sent to lab for further analysis. US/US paracentesis abd w/image IMPRESSION: Successful ultrasound-guided therapeutic and diagnostic paracentesis performed without immediate complications. Electronically signed by: Humberto Covarrubias MD 09/06/2025 03:34 PM MEI
--- NOTE | ~2025-09-05 | CT_ITS ---
CLINICAL HISTORY: acute renal failure, hx of ETOH liver CT abdomen and pelvis without contrast Comparison: CT/REG - CT ABDOMEN PELVIS WITH IV CONTRAST - 02/02/24 20:57 EDT Findings: LIMITED CHEST: Mild atelectasis at the lung bases. LIVER: Nodular liver contour. Evaluation is limited due to lack of IV contrast. BILIARY: No gallbladder wall thickening, radiopaque stone, or ductal dilatation. PANCREAS: No mass or ductal dilatation. SPLEEN: No splenomegaly. KIDNEYS: No hydronephrosis or radiopaque stone. ADRENALS: No nodule. VASCULAR: No aneurysm. RETROPERITONEUM: No lymphadenopathy or mass. BOWEL/MESENTERY: No evidence of obstruction. [id number] volume ascites. Diffuse colonic wall thickening, may be due to portal colopathy. ABDOMINAL WALL: No mass or significant abnormality. URINARY BLADDER: No focal wall thickening. PELVIC NODES: No pelvic lymphadenopathy. PELVIC ORGANS: Normal for age. BONES: No acute fracture. OTHER: Negative. IMPRESSION: Cirrhosis with moderate to large volume ascites. No nephrolithiasis or hydronephrosis. This document has been electronically signed by: Suzette Garcia MD on 09/06/2025 01:10:27
--- NOTE | ~2025-09-05 | US_ITS ---
EXAMINATION: US ABDOMEN LIMITED CLINICAL INFORMATION: Right upper quadrant pain to rule out portal vein thrombosis.. COMPARISON: None available. TECHNIQUE: Real-time imaging of the right upper quadrant abdominal viscera. FINDINGS: Limited exam due to body habitus, gas and limited windows of visualization. Doppler imaging of the middle portal vein reveals absent flow versus nonvisualization. The liver is echogenic slightly lobulated with small amount of ascites. US/US abdomen limited IMPRESSION: Very limited exam. No flow seen in the area of middle portal vein versus thrombosed versus not well-visualized. Electronically signed by: Humberto Covarrubias MD 09/09/2025 07:04 AM EST
[2025-09-05 19:00] VITALS: BP 128/78; PULSE 97; RESP 98; TEMP 36.7; O2SAT 97; BMI 22.5
--- NOTE | 2025-09-05 19:00 | ED_ITS ---
HPI - General Adult General Chief complaint: Recheck/Abnormal Lab/Rx Stated complaint: irregular labs sent by Time Seen by Provider: 09/05/25 22:25 History of Present Illness ED Provider: Jeff MARISCAL narrative: The patient is a 49-year-old female who has a history of alcoholic liver disease. She says that she had significant alcoholic liver disease including ascites until she stopped drinking in 2014. She said that she improved significantly after she stopped drinking and she was off alcohol for 5 years. She has been drinking again for the last 5 years but was doing fairly well until a few months ago. Over the last several weeks she has developed increasing abdominal girth similar to problems that she had had with the ascites many years ago. She has not had any recent need for paracentesis. She says that she has been having increasing abdominal girth over the last few weeks which has become increasingly uncomfortable. Today she had outpatient labs that showed a creatinine of 6. This is a new finding for her. She has never had renal failure in the past. She was advised to come to the emergency room because of these outpatient labs. She has not had any fever, sweats, chills. She says that over the last 5 days she has been trying to cut back on her alcohol use. She says she has only had 1 drink per day over the last 5 days. She has had some nausea and vomiting. She has not had any seizures or severe shaking chills. Related Data Previous Rx's ?Medication ?Instructions ?Recorded lactulose 10 gram/15 mL oral 45 ml PO TID #12,150 mL 0 02/20/24 solution trazodone 50 mg tablet 50 mg PO BEDTIME PRN for ins omnia 10/15/24 90 days #90 tabs sertraline 50 mg tablet 50 mg PO DAILY 90 days #90 t abs 01/11/25 folic acid 1 mg tablet 1 mg PO DAILY #30 tabs 03/05 thiamine HCl (vitamin B1) 100 mg 100 mg PO DAILY #30 t abs 03/05/25 tablet (Vitamin B-1) clonidine HCl 0.1 mg tablet 0.1 mg PO BEDTIME PRN anxi ety #30 04/09/25 tabs alprazolam 1 mg tablet 1 mg PO TID PRN anxiety #86 tabs 08/30/25 cyclobenzaprine 5 mg tablet 5 mg PO BEDTIME PRN muscle spasm 08/30/25 #20 tabs Allergies Allergy/AdvReac Type Severity Reaction Status Date / Time No Known Allergies (No Known Allergy Verified 09/05/25 19:02 Allergies*) Review of Systems 2 Review of Systems: Yes all other systems are reviewed and are negative [facility] Past Medical History Medical History Alcohol intoxication 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 Mother No problems noted. Family/Other Substance use disorder Maternal Grandmother Ovarian cancer Maternal Aunt Ovarian cancer Social History Social History Household Members: Spouse Housing: House Do you presently have visiting nurse or other home services: No Alcohol intake: current Alcohol intake frequency: 0-2 drinks per day Alcohol type: beer and wine Patient Tobacco Use Status: Current everyday Tobacco user Tobacco use type: Cigarette Cigarettes Per Day: 15 Smoked in Last 30 Days: Yes e-Cigarette/Vaping Use: Never Used Second Hand Smoke Exposure: Yes Use of substances other than those prescribed or required for medical reasons: No Substance Use Type: Marijuana Advance Directives: No Advance Directives Information Provided: No Patient : No service: No Current occupational status: unemployed Cognitive needs: No Hearing needs: No Vision needs: No Physical Exam ED Vital Signs: Vital Signs - 24 hr 09/05/25 19:00 09/05/25 20:21 09/06/25 01:19 Temperature 98.0 F 98.3 F 98.7 F Pulse Rate 97 96 94 Respiratory Rate 98 H 16 16 Blood Pressure 128/78 127/77 105/63 Pulse Oximetry 97 96 94 Oxygen Delivery Method Room Air Room Air Room Air 09/06/25 01:30 Temperature Pulse Rate Respiratory Rate 18 Blood Pressure Pulse Oximetry Oxygen Delivery Method BMI result Body Mass Index 22.5 Const Other: The patient is awake and alert with a normal mental status. She does not look obviously acutely ill. HENMT Other: Face is symmetrical, mucous membranes moist Eyes Other: Pupils are round equal, mild scleral icterus Neck Other: Neck is supple Resp Effort & Inspection: normal respiratory effort Auscultation: clear to auscultation bilaterally Cardio Rate: regular rate Rhythm: regular rhythm Heart sounds: S1 normal heart sound present and S2 normal heart sound present GI Other: The patient has an abdomen which is distended in a manner consistent with the ascites. She does not seem particularly tender however. The abdomen is not tense. Skin Other: Skin is pale and dry Neuro Other: The patient is awake and alert with a normal mental status. Cranial nerves are grossly intact. She seems to move her extremities symmetrically and appropriately. No significant tremulousness. Extrem Other: No peripheral edema, no calf swelling or tenderness Course Course Course Narrative: Rapid medical examination performed in triage by Ammy Lomas PA-C: Patient is a 49 year old assigned female at presenting to the emergency department with feeling generally unwell and abnormal labs. Patient's outpatient CR >6. Detailed physical exam and review of systems are deferred to the drug discovery informatics specialist. EKG, labs/ ordered. periodicals clerk aware. Medications Administered Generic Name Dose Route Start Last Admin Trade Name Freq PRN Reason Stop Dose Admin Sodium Chloride 1,000 mls @ 999 mls/hr 09/06/25 01:15 09/06/25 01:17 Ns IV 09/06/25 02:15 999 mls/hr .Q1H1M KAITY Administration Discontinued Medications Generic Name Dose Route Start Last Admin Trade Name Freq PRN Reason Stop Dose Admin Morphine Sulfate 2 mg 09/06/25 01:22 09/06/25 01:30 Morphine Sulfate 4 Mg/Ml Cartridge IVPUSH 09/06/25 01:23 2 mg ONCE ONE Administration Protocol Medical Decision Making Medical Decision Making [facility] Narrative: The patient is a 49-year-old female who has a long history of alcoholic liver disease. She apparently has been quite ill until 2014 when she stopped drinking. She had required paracenteses up to that point. She says that she improved significantly after stopping drinking in 2014 but unfortunately she resumed drinking about 5 years ago. During these last 5 years she has not had a recurrence of problems with the ascites or abdominal distention until recently. Over the last few weeks she has had increasing abdominal distention. She had outpatient lab work today that showed an elevated creatinine of 6. This is significantly different from labs less than 2 months ago when she had a creatinine of 0.[address] scan of the abdomen and pelvis shows ascites but no obstructive process to account for her acute liver failure. I assume that her kidney failure is a consequence of her liver disease. She is not hyperkalemic. I think the patient will require hospitalization for stabilization and ongoing management. I do not think that her history, her physical exam or her vital signs or her lab work is suggestive of an acute infectious process. I do not think she has spontaneous bacterial peritonitis. The patient was given IV fluids. The patient will be admitted to the hospitalist service for further care. Lab Data 09/05/25 19:18 09/05/25 19:18 Labs: Lab Results 09/05/25 Range/Units 19:18 WBC 11.6 H (4.8-10.8) X10*3/uL RBC 3.25 L (4.20-5.50) X10*6/uL Hgb 11.4 L (12.0-16.0) g/dl Hct 31.9 L (37.0-47.0) % MCV 98.2 H (80.0-98.0) fL MCH 35.1 H (27.0-33.0) pg MCHC 35.7 H (31.0-35.0) g/dl RDW 18.2 H (11.0-16.0) % Plt Count 218 (160-400) X10*3/uL MPV 10.6 (9.4-12.3) fL Immature Gran % (Auto) 0.3 (0.0-0.4) % Neut % (Auto) 60.7 (45-73) % Lymph % (Auto) 23.1 (20-40) % [place] % (Auto) 15.2 H (2-11) % Eos % (Auto) 0.3 (0-4) % Baso % (Auto) 0.4 (0-2) % Lymph # (Auto) 2.7 (1.2-4.9) X10*3/uL [place] # (Auto) 1.8 H (0.1-1.2) X10*3/uL Eos # (Auto) 0.0 (0.0-0.4) X10*3/uL Baso # (Auto) 0.1 (0.0-0.2) X10*3/uL Abs Immat Gran (auto) 0.04 H (0.00-0.03) X10*3/uL Absolute Neuts (auto) 7.0 (2.0-8.3) x10*3/uL Absolute Nucleated RBC 0.000 (0.0-0.012) X10*3/uL Nucleated RBC % (auto) 0.0 (0.0-0.2) /100WBC Sodium 127 L (135-145) mmol/L Potassium 3.5 (3.3-5.1) mmol/L Chloride 92 L (96-108) mmol/L Carbon Dioxide 18 L (22-29) mmol/L Anion Gap 21 H (12-20) BUN 62 H (9-16) mg/dL Creatinine 6.72 H* (0.5-1.4) mg/dL Estim Creat Clear Calc 8.5 Estimated GFR 6 Random Glucose 99 (60-115) mg/dL Calcium 8.9 (8.4-10.2) mg/dL Total Bilirubin 2.3 H (0.0-1.0) mg/dL Direct Bilirubin 1.4 H (0.0-0.5) mg/dL AST 78 H (5-31) U/L ALT 18 (0-31) U/L Alkaline Phosphatase 130 H (39-117) U/L Total Protein 8.3 H (6.5-8.0) g/dL Albumin 2.9 L (3.5-5.0) g/dL Beta HCG, Quant 3 mIU/mL Discharge Plan Discharge Clinical Impression: Acute renal failure, Alcoholic liver disease Patient Disposition: Admitted As Inpatient
[2025-09-05 19:25] LABS: Hematocrit 31.9 % (37.0-47.0); Hemoglobin 11.4 g/dl (12.0-16.0); Imm Gran Abs Auto 0.04 X10*3/uL (0.00-0.03); Imm Gran Pct Auto 0.3 % (0.0-0.4); Lymphocytes Absolute Auto 2.7 X10*3/uL (1.2-4.9); MANUAL DIFF FLAG SCAN; Mean Corpuscular HGB Conc 35.7 g/dl (31.0-35.0); Mean Corpuscular Hemoglobin 35.1 pg (27.0-33.0); Mean Corpuscular Volume 98.2 fL (80.0-98.0); NRBC Abs Auto 0.000 X10*3/uL (0.0-0.012); NRBC Pct Auto 0.0 /100WBC (0.0-0.2); Platelet Count 218 X10*3/uL (160-400); Red Blood Count 3.25 X10*6/uL (4.20-5.50); SCAN SMEAR FLAG 1; White Blood Count 11.6 X10*3/uL (4.8-10.8)
[2025-09-05 19:43] LABS: Alanine Aminotransferase 18 U/L (0-31); Albumin Level 2.9 g/dL (3.5-5.0); Alkaline Phosphatase 130 U/L (39-117); Anion Gap 21 (12-20); Aspartate Amino Transferase 78 U/L (5-31); Blood Urea Nitrogen 62 mg/dL (9-16); Calcium 8.9 mg/dL (8.4-10.2); Carbon Dioxide 18 mmol/L (22-29); Chloride 92 mmol/L (96-108); Creatinine Clr Calc Pharmacy 8.5; Estimated Glomerular Filt Rate 6; Potassium 3.5 mmol/L (3.3-5.1); Sodium 127 mmol/L (135-145); Total Protein 8.3 g/dL (6.5-8.0)
[2025-09-05 20:21] VITALS: BP 127/77; PULSE 96; RESP 16; TEMP 36.8; O2SAT 96
--- NOTE | 2025-09-05 20:33 | PC.NURSE ---
this RN assumed care of this pt approximately @2019, pt A+Ox4, noted to be laying semi ya's, lights off, no apparent distress / respiratory distress noted, reparations even and unlabored, IV line placed, pt placed in hospital gown, significant other at the bedside, call light provided for safety
--- NOTE | 2025-09-05 20:37 | PC.NURSE ---
during assessment pt stated she is a daily drinker, attempting to stop drinking x6 days ago, reports having 1 drink since then to keep from withdrawing d/t hx of withdrawal symptoms, last drink noted to be today approximately @1400 per pt
[2025-09-06] VITALS (10 sets, daily range): BP systolic 93–116; BP diastolic 50–63; PULSE 86–94; RESP 16–20; TEMP 36.2–37.4; O2SAT 90–94; BMI 22.7
--- NOTE | 2025-09-06 01:57 | PM.IMHP ---
History of Present Illness Date of Service: 09/06/25 Attending physician on admission: Max Cavazos Chief Complaint: abd pain, kidney function Pt is a 49 yo female with a pmhx significant for alcohol use disorder, etoh cirrhosis, tobacco use and anxiety/depression, who presented to the ED due to ascites, elevated cr, and pain and decreased appetite. pt has been drinking 10 nips/day butcut back to 1 drink/day for the past 5 days. last drink was last night. having abd pain, flank pain, bloating and decreased appetite. has had some nausea and vomiting, no hematemesis or coffee ground emesis. she also complains or mild SOB due to abd pressure. no fever, confusion, cough or URI sx. cr is elevated at 6.72 and A/P CT with moderate to severe ascites, no urinary obstruction. Review of Systems Constitutional: Constitutional: Denies body ache(s), Denies chills, Denies fatigue, Denies fever(s) and Denies headache(s) Eyes: Eyes: Denies change in vision ENT: Reports dry mouth, Denies headache(s), Denies nasal congestion and Denies sore throat Cardiovascular: Cardiovascular: Denies chest pain, Denies rapid heart rate, Denies leg edema, Denies lightheadedness and Denies dyspnea Respiratory: Respiratory: Denies chest congestion, Denies cough, Denies dyspnea and Denies wheezing Gastrointestinal: Gastrointestinal: Reports as per HPI Genitourinary: Genitourinary: Denies dysuria and Denies urinary urgency Musculoskeletal: Musculoskeletal: Denies myalgias Integumentary/Breasts: Skin/Breast: Denies rash Neurologic: Denies confusion and Denies headache(s) Psychiatric: Psychiatric: Denies confusion Endocrine: Endocrine: Denies fatigue Hematologic/Lymphatic: Hematologic/Lymphatic: Denies easy bleeding Allergic/Immunologic: Allergic/Immunologic: Denies wheezing [facility] Medical History Alcohol intoxication 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 Mother No problems noted. Family/Other Substance use disorder Maternal Grandmother Ovarian cancer Maternal Aunt Ovarian cancer Surgical History Hx of endoscopy History of colonoscopy Social History Household Members: Spouse Housing: House Do you presently have visiting nurse or other home services: No Alcohol intake: current Alcohol intake frequency: 0-2 drinks per day Alcohol type: beer and wine Patient Tobacco Use Status: Current everyday Tobacco user Tobacco use type: Cigarette Cigarettes Per Day: 15 Smoked in Last 30 Days: Yes e-Cigarette/Vaping Use: Never Used Second Hand Smoke Exposure: Yes Use of substances other than those prescribed or required for medical reasons: No Substance Use Type: Marijuana Advance Directives: No Advance Directives Information Provided: No Nutrition Risks: No Nutritional Risk Patient : No service: No Current occupational status: unemployed Cognitive needs: No Hearing needs: No Vision needs: No Meds Allergies Allergy/AdvReac Type Severity Reaction Status Date / Time No Known Allergies (No Known Allergy Verified 09/05/25 19:02 Allergies*) Active Medications: Current Medications Folic Acid (Folic Acid 1 Mg Tablet) 1 mg PO DAILY KAITY Stop: 09/09/25 08:59 Sodium Chloride (Ns) 1,000 mls @ 999 mls/hr IV .Q1H1M KAITY Stop: 09/06/25 02:15 Last Admin: 09/06/25 01:17 Dose: 999 mls/hr Ceftriaxone Sodium 1 gm/ (Sodium Chloride) 50 mls @ 100 mls/hr IV Q24H [facility] Multivitamins/Vitamin C (Multivitamin Tablet) 1 tab PO DAILY KAITY Stop: 09/09/25 08:59 Thiamine HCl (Thiamine Hcl 100 Mg Tablet) 100 mg PO DAILY KAITY Stop: 09/09/25 08:59 Physical Exam Vital Signs and Narrative: Vital Signs: Last Vital Signs Temp 98.7 F 09/06/25 01:19 Pulse 94 09/06/25 01:19 Resp 18 09/06/25 01:30 BP 105/63 09/06/25 01:19 Pulse Ox 94 09/06/25 01:19 O2 Del Method Room Air 09/06/25 01:19 BMI result Body Mass Index 22.5 General: AOx3, no acute distress Resp: CTA bilaterally CVS: S1, S2, RRR GI: +BS, NT, + distention Skin: Warm, dry Neuro: Cranial nerves II-XII grossly intact bilaterally. Motor grossly intact bilaterally Extremities: No pitting edema Psych: Appropriate affect Const: General: No confusion Orientation/consciousness: No confusion Neuro: General: No confusion Results Labs 09/05/25 19:18 09/05/25 19:18 Labs: Laboratory Results - last 24 hr 09/05/25 19:18 MCV 98.2 H MCH 35.1 H MCHC 35.7 H RDW 18.2 H Plt Count 218 MPV 10.6 Immature Gran % (Auto) 0.3 Neut % (Auto) 60.7 Lymph % (Auto) 23.1 [place] % (Auto) 15.2 H Eos % (Auto) 0.3 Baso % (Auto) 0.4 Lymph # (Auto) 2.7 [place] # (Auto) 1.8 H Eos # (Auto) 0.0 Baso # (Auto) 0.1 Abs Immat Gran (auto) 0.04 H Absolute Neuts (auto) 7.0 Absolute Nucleated RBC 0.000 Nucleated RBC % (auto) 0.0 Anion Gap 21 H Estim Creat Clear Calc 8.5 Estimated GFR 6 Random Glucose 99 Calcium 8.9 Total Bilirubin 2.3 H Direct Bilirubin 1.4 H AST 78 H ALT 18 Alkaline Phosphatase 130 H Total Protein 8.3 H Albumin 2.9 L Beta HCG, Quant 3 Assessment and Plan (1) Acute renal failure: Status: Acute (2) Alcoholic cirrhosis of liver with ascites: Status: Acute (3) Alcohol use disorder: Status: Acute (4) Anemia: Status: Acute (5) Hyponatremia with excess extracellular fluid volume: Status: Acute Plan Pt is a 49 yo female with a pmhx significant for alcohol use disorder, etoh cirrhosis, tobacco use and anxiety/depression, who presented to the ED due to ascites, elevated cr, and pain and decreased appetite. acute renal failure ?hepatorenal - CT without obstruction - neprhology consult - monitor BMP alcoholic cirrhosis with ascites - diagnostic and therapeutic paracentesis - ceftriaxone for SBP prophylaxis - GI consult for ascites management alcohol use disorder - monitor CIWA - addiction med consult - B12, folic acid, multivitamin Macrocytic anemia - B12, folate, iron panel - monitor CBC hyponatremic hypochloremic metabolic acidosis - likely due to renal failure and fluid overload - limit IVF due to fluid overload - paracentesis ordered - nephrology consult as above - monitor BMP - tele tobacco use disoder - smoking cessation encouraged med rec pending full code VTE prophy: SCDs pending paracentesis Pt with acute renal failure in the setting of alcoholic cirrhosis with ascites, requiring admission for at least 2 midnights stay for treatment and monitoring. Quality Stroke Does the patient have a stroke diagnosis?: No VTE Prior VTE?: No VTE Risk Level:: Medical - moderate - high VTE Device Contraindication: N/A - Device Ordered VTE Drug Contraindication: Treatment Not Indicated
[2025-09-06 02:19] LABS: Magnesium 2.4 mg/dL (1.6-2.6)
--- NOTE | 2025-09-06 02:49 | HO.NURTONUR ---
Chief Complaint: abd pain, kidney function Pt is a 49 yo female, full code, NKA, Reg. diet, with a pmhx significant for alcohol use disorder, etoh cirrhosis, tobacco use and anxiety/depression, who presented to the ED due to ascites, elevated cr, and pain and decreased appetite. pt has been drinking 10 nips/day butcut back to 1 drink/day for the past 5 days. last drink was last night. having abd pain, flank pain, bloating and decreased appetite. no fever, confusion, cough, SOB, or URI sx. cr is elevated at 6.72 and A/P CT with moderate to severe ascites, no urinary obstruction. Plan - neprhology consult - monitor BMP -therapeutic paracentesis ordered - ceftriaxone for SBP prophylaxis - GI consult for ascites managment - monitor CIWA - addiction med consult - monitor CBC - limit IVF due to fluid overload - nephrology consult - monitor BMP - tele Pt with acute renal failure in the setting of alcoholic cirrhosis with ascites, requiring admission for at least 2 midnights stay for treatment and monitoring. she ambulates independently and has a 20g Iv to the left ac
[2025-09-06 05:00] LABS: Appearance Urine Clear; Glucose Urine UA Negative (Negative); PH 6.0 (5.0-9.0); Specific Gravity - Urine 1.015 (1.005-1.025)
[2025-09-06 05:12] LABS: Cannabinoid Screen Urine Not Detected (Not Detect)
[2025-09-06 07:04] LABS: MANUAL DIFF FLAG NO
[2025-09-06 07:07] LABS: Hematocrit 27.1 % (37.0-47.0); Hemoglobin 9.6 g/dl (12.0-16.0); Imm Gran Abs Auto 0.03 X10*3/uL (0.00-0.03); Imm Gran Pct Auto 0.3 % (0.0-0.4); Lymphocytes Absolute Auto 2.6 X10*3/uL (1.2-4.9); Mean Corpuscular HGB Conc 35.4 g/dl (31.0-35.0); Mean Corpuscular Hemoglobin 35.0 pg (27.0-33.0); Mean Corpuscular Volume 98.9 fL (80.0-98.0); NRBC Abs Auto 0.000 X10*3/uL (0.0-0.012); NRBC Pct Auto 0.0 /100WBC (0.0-0.2); Platelet Count 165 X10*3/uL (160-400); Red Blood Count 2.74 X10*6/uL (4.20-5.50); White Blood Count 8.7 X10*3/uL (4.8-10.8)
[2025-09-06 07:34] LABS: Alanine Aminotransferase 13 U/L (0-31); Albumin Level 2.5 g/dL (3.5-5.0); Alkaline Phosphatase 100 U/L (39-117); Aspartate Amino Transferase 78 U/L (5-31); Blood Urea Nitrogen 62 mg/dL (9-16); Calcium 8.4 mg/dL (8.4-10.2); Creatinine Clr Calc Pharmacy 9.7; Estimated Glomerular Filt Rate 7; Iron 89 mcg/dL (30-160); Percent Iron Saturation 50 % (15-50); Total Iron Binding Capacity 179 mcg/dL (228-428); Total Protein 6.8 g/dL (6.5-8.0); Unsaturated Iron Binding 90 ug/dL
[2025-09-06 07:46] LABS: Anion Gap 14 (12-20); Carbon Dioxide 21 mmol/L (22-29); Chloride 96 mmol/L (96-108); Potassium 3.3 mmol/L (3.3-5.1); Sodium 128 mmol/L (135-145)
[2025-09-06 07:57] LABS: Folate 2.7 ng/mL (> or = 4.0); Vitamin B12 1045 pg/mL (200-900)
--- NOTE | 2025-09-06 08:33 | PHA.MEDREC ---
Pharmacy Consult ? Medication Reconciliation Pharmacy has completed the medication reconciliation.
--- NOTE | 2025-09-06 09:11 | MHC.CM.PN ---
CM met with Patient at bedside and addressed IMM with her, providing Patient with the original and a copy has been placed on the chart. 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 Home self care is the Patient's goal and CM has initiated and will follow fir dc planning. PCP is Dr. Joan Bradley and Friend/HCP/Leeroy will transport at dc.
[2025-09-06] MEDS: 0.9 % Sodium Chloride Flush 3 ML SYRINGE IVFLUSH (09:19)
[2025-09-06 09:31] LABS: Total Protein Urine Random 19 mg/dL (<12)
[2025-09-06] MEDS: oxyCODONE HCl Immed Release 5 MG TABLET PO (09:51)
[2025-09-06] MEDS: Lidocaine HCl 1 % MPF 5 ML VIAL 10 ML SUBCUT (12:14)
--- NOTE | 2025-09-06 12:48 | P.CONNP_ITS ---
History of Present Illness Reason for Consult Consult date: 09/06/25 Chief Complaint Chief complaint: New Renal Failure History of Present Illness Narrative: 49 yo female with a pmhx significant for alcohol use disorder, etoh cirrhosis, tobacco use and anxiety/depression, who presented to the ED due to ascites, elevated cr, and pain and decreased appetite. pt has been drinking 10 nips/day butcut back to 1 drink/day for the past 5 days. last drink was last night. having abd pain, flank pain, bloating and decreased appetite. has had some nausea and vomiting, no hematemesis or coffee ground emesis. she also complains or mild SOB due to abd pressure. no fever, confusion, cough or URI sx. Function normal. Prior to admission oral intake was poor. 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 Mother No problems noted. Family/Other Substance use disorder Maternal Grandmother Ovarian cancer Maternal Aunt Ovarian cancer Surgical History Surgical History Hx of endoscopy History of colonoscopy Social History Social History Household Members: Spouse and Children Housing: House Do you presently have visiting nurse or other home services: No Alcohol intake: current Alcohol intake frequency: 0-2 drinks per day Alcohol type: beer and wine Patient Tobacco Use Status: Current everyday Tobacco user Tobacco use type: Cigarette Cigarette Packs Per Day: 0.5 Cigarettes Per Day: 10.0 Years Smoked: 30 Smoked in Last 30 Days: Yes e-Cigarette/Vaping Use: Never Used Second Hand Smoke Exposure: Yes Use of substances other than those prescribed or required for medical reasons: No Substance Use Type: Marijuana Have you been hit, kicked, punched, or otherwise hurt by someone within the past year? If so, by whom?: No Is there a partner from a previous relationship who is making you feel unsafe now?: No Are you made to feel afraid or neglected: No Advance Directives: No Advance Directives Information Provided: No Do you have a plan to hurt others: No Plan Nutrition Risks: No Nutritional Risk Patient : No service: No Current occupational status: unemployed Cognitive needs: No Hearing needs: No Vision needs: No Meds Allergies Allergy/AdvReac Type Severity Reaction Status Date / Time No Known Allergies (No Known Allergy Verified 09/05/25 19:02 Allergies*) Active Medications: Current Medications Acetaminophen (Acetaminophen 325 Mg Tablet) 650 mg PO Q6H PRN PRN Reason: Pain, Mild 1-3,fever,headache Calcium Carbonate (Calcium Carbonate 750 Mg Tab.Chew) 750 mg PO Q4H PRN PRN Reason: Heartburn Folic Acid (Folic Acid 1 Mg Tablet) 1 mg PO DAILY [facility] Stop: 09/09/25 08:59 Last Admin: 09/06/25 09:19 Dose: 1 mg Ceftriaxone Sodium 1 gm/ (Sodium Chloride) 50 mls @ 100 mls/hr IV Q24H [facility] Last Infusion: 09/06/25 02:53 Dose: Infused Sodium Chloride (Ns) 1,000 mls @ 50 mls/hr IVCONT .Q20H [facility] Stop: 09/08/25 01:14 Last Admin: 09/06/25 09:17 Dose: 50 mls/hr Magnesium Hydroxide (Milk Of Magnesia 30 Ml Oral.Susp) 30 ml PO DAILY PRN PRN Reason: Constipation Melatonin (Melatonin 3 Mg Tablet) 6 mg PO BEDTIME PRN PRN Reason: Insomnia Multivitamins/Vitamin C (Multivitamin Tablet) 1 tab PO DAILY [facility] Stop: 09/09/25 08:59 Last Admin: 09/06/25 09:19 Dose: 1 tab Ondansetron HCl (Ondansetron Hcl 4 Mg/2 Ml Vial) 4 mg IVPUSH Q8H PRN PRN Reason: Nausea and Vomiting Last Admin: 09/06/25 02:17 Dose: 4 mg Oxycodone HCl (Oxycodone Hcl Immed Release 5 Mg Tablet) 5 mg PO Q6H PRN PRN Reason: Pain, Severe (Pain Scale 7-10) Last Admin: 09/06/25 09:51 Dose: 5 mg Sodium Chloride (0.9 % Sodium Chloride Flush 3 Ml Syringe) 3 ml IVFLUSH QSHIFT [facility] Last Admin: 09/06/25 09:19 Dose: 3 ml Thiamine HCl (Thiamine Hcl 100 Mg Tablet) 100 mg PO DAILY [facility] Stop: 09/09/25 08:59 Last Admin: 09/06/25 09:19 Dose: 100 mg Tramadol HCl (Tramadol Hcl 50 Mg Tablet) 50 mg PO Q6H PRN PRN Reason: Pain, Moderate(Pain Scale 4-6) Physical Exam Vital Signs: Last Vital Signs Temp 97.2 F 09/06/25 12:29 Pulse 91 09/06/25 12:29 Resp 18 09/06/25 12:29 BP 114/62 09/06/25 12:29 Pulse Ox 92 09/06/25 12:29 O2 Del Method Room Air 09/06/25 12:29 BMI result Body Mass Index 22.7 Comfortable mucosa dry Neck supple no JVD. Lungs entry equal no rales. Heart S1-S2 heard no gallop or rub. Abdomen soft nontender. Distended ,bowel sounds heard Neuro alert awake oriented. No asterixis. Extremities no edema. Results Lab Results 09/06/25 06:19 09/06/25 06:19 Lab results: Chemistry 09/05/25 09/06/25 19:18 06:19 Sodium 127 L 128 L Potassium 3.5 3.3 Carbon Dioxide 18 L 21 L BUN 62 H 62 H Creatinine 6.72 H* 5.93 H* Calcium 8.9 8.4 Hematology 09/05/25 09/06/25 19:18 06:19 WBC 11.6 H 8.7 Hgb 11.4 L 9.6 L Plt Count 218 165 Urinalysis 09/06/25 04:26 Urine Color Yellow Urine Appearance Clear Urine pH 6.0 Ur Specific [place] 1.015 Urine Protein Trace Urine Glucose (UA) Negative Urine Ketones Negative Urine Blood Negative Urine Nitrite Negative Ur Leukocyte Esterase Negative Urine Studies 09/06/25 04:54 Urine Creatinine 181.44 Assessment and Plan (1) Acute renal failure: Status: Acute Plan AMANDA most likely due to hypoperfusion from severe dehydration. The use of NSAIDs could have contributed to hypoperfusion as well Urine is bland without significant sediments. Recent imaging did not reveal any evidence of obstruction. Recommendations check urine for sodium and creatinine protein. Keep intake more than output cautiously. Add IV normal saline at 50 cc/hour x2 L. Follow urine output. Expect renal recovery. No indication for dialysis Watch serum potassium is well Procedures Date of Service Date of Service: 09/06/25
[2025-09-06 14:04] LABS: MN% 75.2 %; PMN% 24.8 %; WBC Peritoneal Fluid 0.221 X10*3/uL
[2025-09-06 14:14] LABS: BF Shift QC OK YES; Lymphocyte Peritoneal Fl 9 %; Monocytes Peritoneal Fl 6 %; Neutrophils Peritoneal Fluid 15 %; Other Peritioneal Fl 70 %
--- NOTE | 2025-09-06 15:29 | P.CNGI_ITS ---
History of Present Illness Data of Consult Service Date: 09/06/25 Requesting physician: Moira Pollack Primary Care Provider: Joan Tadeo MD HPI Reason for consult: Cirrhosis 49 YF with alcohol use disorder, etoh cirrhosis, tobacco use and anxiety/depression, seen at [facility] ED on 09/05/25 due to ascites, elevated cr, and pain and decreased appetite. Patient reports progressive abdominal distention and diarrhea for the past 2 weeks with multiple small bowel movements daily. Pt reports abd pain, flank pain, bloating and decreased appetite, nausea and vomiting, Pt denied hematemesis or coffee ground emesis. she also complains or mild SOB due to abd pressure. no fever, confusion, cough or URI sx. Pt had US -guided therapeutic and diagnostic paracentesis by IR today and 5.1 litre of ascitic fluid was removed. AF analysis was negative for SBP. cr is elevated at 6.72 She also notes intermittent RUQ pain radiating to her back. She complains of chills and denies fever Pt reports decreased PO intake due to abd distension and feels better since her paracentesis Pt admits to drinking 10 nips/day (started drinking at age 11 yrs) and cut back to 1 drink/day for the past 5 days - last drink was last night. She has been through rehab multiple times and remained sober for 1-2 weeks. She smokes 1/2 PPD x 30 years and takes marijuana gummies occasionally Pt lives at home with her ( who also has alcoholic cirrhosis and had a TIPPS procedure for ascites management) and 2 grown kids Both parents had alcohol problems and liver disease. ABD CT SCAN SHOWED: Cirrhosis with moderate to large volume ascites. No nephrolithiasis or hydronephrosis. PAST GI HX BY REVIEW OF MEDICAL RECORDS: She has been struggling with alcohol on and off had relapse to alcohol from 01/2020 and going back and forth with drinking takes mostly vodka nips LabS: A1At nml, JOAN, SLA, SMA, Igg levels were nml, Hep A,B, C negative LFT nml 03/2022 LFT nml 02/20 apart from mild raised shelley phos, INR: 1, plst 290, h/H LFT 02/21: nml bili, INR 1.1, ild ASt, ALT elevation, alb 3.3 US 2020---cirrhosis, no free fluid US 08/2021-- liver appeared nml, normal portal flow US 04/2022- cirrhosis, no masses US 12/22--echogenic, lobulated liver, elastography 1.6 CT 02/21-- cirrhosis, non specific mild thickening of rectum, b/l avascular necrosis of femoral heads Review of Systems 2 Review of Systems: Yes all other systems are reviewed and are negative [facility] Past Medical History Medical History Alcohol intoxication 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 Mother No problems noted. Family/Other Substance use disorder Maternal Grandmother Ovarian cancer Maternal Aunt Ovarian cancer Surgical History Surgical History Hx of endoscopy History of colonoscopy Social History Social History Household Members: Spouse and Children Housing: House Do you presently have visiting nurse or other home services: No Alcohol intake: current Alcohol intake frequency: 0-2 drinks per day Alcohol type: beer and wine Patient Tobacco Use Status: Current everyday Tobacco user Tobacco use type: Cigarette Cigarette Packs Per Day: 0.5 Cigarettes Per Day: 10.0 Years Smoked: 30 Smoked in Last 30 Days: Yes e-Cigarette/Vaping Use: Never Used Second Hand Smoke Exposure: Yes Use of substances other than those prescribed or required for medical reasons: No Substance Use Type: Marijuana Currently Displaying Signs/Symptoms of Drug Intoxication Withdrawal: No Have you been hit, kicked, punched, or otherwise hurt by someone within the past year? If so, by whom?: No Is there a partner from a previous relationship who is making you feel unsafe now?: No Are you made to feel afraid or neglected: No Advance Directives: No Advance Directives Information Provided: No Do you have a plan to hurt others: No Plan Nutrition Risks: No Nutritional Risk Patient : No service: No Current occupational status: unemployed Cognitive needs: No Hearing needs: No Vision needs: No Meds Allergies Allergy/AdvReac Type Severity Reaction Status Date / Time No Known Allergies (No Known Allergy Verified 09/05/25 19:02 Allergies*) Active Medications: Current Medications Acetaminophen (Acetaminophen 325 Mg Tablet) 650 mg PO Q6H PRN PRN Reason: Pain, Mild 1-3,fever,headache Calcium Carbonate (Calcium Carbonate 750 Mg Tab.Chew) 750 mg PO Q4H PRN PRN Reason: Heartburn Folic Acid (Folic Acid 1 Mg Tablet) 1 mg PO DAILY [facility] Stop: 09/09/25 08:59 Last Admin: 09/06/25 09:19 Dose: 1 mg Ceftriaxone Sodium 1 gm/ (Sodium Chloride) 50 mls @ 100 mls/hr IV Q24H [facility] Last Infusion: 09/06/25 02:53 Dose: Infused Sodium Chloride (Ns) 1,000 mls @ 50 mls/hr IVCONT .Q20H [facility] Stop: 09/08/25 01:14 Last Admin: 09/06/25 09:17 Dose: 50 mls/hr Magnesium Hydroxide (Milk Of Magnesia 30 Ml Oral.Susp) 30 ml PO DAILY PRN PRN Reason: Constipation Melatonin (Melatonin 3 Mg Tablet) 6 mg PO BEDTIME PRN PRN Reason: Insomnia Multivitamins/Vitamin C (Multivitamin Tablet) 1 tab PO DAILY [facility] Stop: 09/09/25 08:59 Last Admin: 09/06/25 09:19 Dose: 1 tab Ondansetron HCl (Ondansetron Hcl 4 Mg/2 Ml Vial) 4 mg IVPUSH Q8H PRN PRN Reason: Nausea and Vomiting Last Admin: 09/06/25 02:17 Dose: 4 mg Oxycodone HCl (Oxycodone Hcl Immed Release 5 Mg Tablet) 5 mg PO Q6H PRN PRN Reason: Pain, Severe (Pain Scale 7-10) Last Admin: 09/06/25 09:51 Dose: 5 mg Sodium Chloride (0.9 % Sodium Chloride Flush 3 Ml Syringe) [facility] Last Admin: 09/06/25 09:19 Dose: 3 ml Thiamine HCl (Thiamine Hcl 100 Mg Tablet) 100 mg PO DAILY [facility] Stop: 09/09/25 08:59 Last Admin: 09/06/25 09:19 Dose: 100 mg Tramadol HCl (Tramadol Hcl 50 Mg Tablet) 50 mg PO Q6H PRN PRN Reason: Pain, Moderate(Pain Scale 4-6) Physical Exam 2 Vital Signs: Vital Signs: Last Vital Signs Temp 99.4 F 09/06/25 14:00 Pulse 88 09/06/25 14:00 Resp 16 09/06/25 14:00 BP 102/55 L 09/06/25 14:00 Pulse Ox 90 L 09/06/25 14:00 O2 Del Method Room Air 09/06/25 14:00 BMI result Body Mass Index 22.7 Const: General: no acute distress and ill appearing chronically Nutritional Appearance: average body habitus Orientation/consciousness: patient oriented x3 Limitations: no limitations HEENT: Head: Yes normal to inspection Ears: hearing grossly normal bilaterally Eyes: Sclerae: sclerae normal Pupils: Equal, round and reactive pupils present Neck: Neck: Yes normal visual inspection Chest: Chest palpation & inspection: normal inspection of the chest Resp: Effort & Inspection: normal respiratory effort Auscultation: clear to auscultation bilaterally Cardio: Palpation: normal PMI Rate: regular rate Rhythm: regular rhythm Heart sounds: S1 normal heart sound present, S2 normal heart sound present and no murmurs GI: Inspection: Yes distended (Due to ascites) Palpation (GI): Soft to palpation, nontender and No hepatosplenomegaly present Auscultation: normal bowel sounds Rectal Exam - Female: deferred Skin: General skin exam: no rashes or lesions noted Neuro: General: patient oriented x3, gait normal and moves all extremities Cranial nerves: Yes Equal, round and reactive pupils present Psych: Appearance: grossly normal Mental Status: mental status grossly normal Results Labs 09/07/25 13:12 09/07/25 05:57 Labs: Short CBC 09/05/25 09/06/25 Range/Units 19:18 06:19 WBC 11.6 H 8.7 (4.8-10.8) X10*3/uL Hgb 11.4 L 9.6 L (12.0-16.0) g/dl Hct 31.9 L 27.1 L (37.0-47.0) % Plt Count 218 165 (160-400) X10*3/uL BMP 09/05/25 09/06/25 19:18 06:19 Sodium 127 L 128 L Potassium 3.5 3.3 Chloride 92 L 96 Carbon Dioxide 18 L 21 L BUN 62 H 62 H Creatinine 6.72 H* 5.93 H* Calcium 8.9 8.4 Liver Function 09/05/25 09/06/25 Range/Units 19:18 06:19 Total Bilirubin 2.3 H 1.8 H (0.0-1.0) mg/dL Direct Bilirubin 1.4 H (0.0-0.5) mg/dL AST 78 H 78 H (5-31) U/L ALT 18 13 (0-31) U/L Alkaline Phosphatase 130 H 100 (39-117) U/L Albumin 2.9 L 2.5 L (3.5-5.0) g/dL Urine 09/06/25 Range/Units 04:26 Urine Color Yellow Urine Appearance Clear Urine pH 6.0 (5.0-9.0) Ur Specific [place] 1.015 (1.005-1.025) Urine Protein Trace (Neg-Trace) mg/dL Urine Glucose (UA) Negative (Negative) mg/dL Microbiology Microbiology Results: Microbiology 09/06/25 11:50 Paracentesis Fluid Gram Stain - Final Assessment and Plan (1) Alcoholic cirrhosis of liver with ascites: Status: Acute (2) Hepatic encephalopathy: Status: Acute (3) Acute renal failure: Status: Acute Plan 49 YF with alcohol use disorder, etoh cirrhosis, tobacco use and anxiety/depression, seen at [facility] ED on 09/05/25 due to ascites, elevated cr, and pain and decreased appetite. Patient reports progressive abdominal distention and diarrhea for the past 2 weeks with multiple small bowel movements daily. Pt has a history of hepatic encephalopathy during prior hospitalization and denies presence of ascites in the past. Pt had US -guided therapeutic and diagnostic paracentesis by IR today and 5.1 litre of ascitic fluid was removed. AF analysis was negative for SBP. cr is elevated at 6.72 and improved to 5.93 today AMANDA most likely due to hypoperfusion from severe dehydration and use of NSAIDs. Pt admits to drinking 10 nips/day (started drinking at age 11 yrs) and cut back to 1 drink/day for the past 5 days - last drink was last night. She has been through rehab multiple times and remained sober for 1-2 weeks. She smokes 1/2 PPD x 30 years and takes marijuana gummies occasionally MELD 3.0 score is 30 (likely driven by elevated Cr) ABD CT SCAN SHOWED: Cirrhosis with moderate to large volume ascites. No nephrolithiasis or hydronephrosis. RECOMMENDATIONS: 1. Agree with pain medications and antiemetics 2. IV hydration as per Nephrology 3. US with doppler to rule out PVT 4. Addiction med consult once pt able to participate for etOH cessation counseling and OP resources. Pt is followed by Dr David in the GI clinic and has a FU appt in December, - will ask GI staff to move up her appt Procedures Date of Service Date of Service: 09/07/25
--- NOTE | 2025-09-06 17:48 | HO.PM.IMPN ---
Subjective Subjective Date of Service: 09/06/25 Interval History: Reports continued abdominal pain and pressure wrapping around to the back Had previous paracentesis in 2014 through 2016, none since then Some increased anxiety No auditory or visual hallucinations; no nausea or vomiting Denies shortness or breath or difficulty breathing Review of Systems Review of Systems: Yes all other systems are reviewed and are negative Physical Exam Exam: Exam: General: AOx3, no acute distress ENT: Mucous membranes dry Resp: CTA bilaterally CVS: S1, S2, RRR GI: +BS, NT, firm with moderate distention Skin: Warm, dry Neuro: Cranial nerves II-XII grossly intact bilaterally. Motor grossly intact bilaterally Extremities: No edema Psych: Appropriate affect Vital Signs: Vital Signs: Last Vital Signs Temp 97.9 F 09/06/25 16:00 Pulse 91 09/06/25 16:00 Resp 16 09/06/25 16:00 BP 99/58 L 09/06/25 16:00 Pulse Ox 92 09/06/25 16:00 O2 Del Method Room Air 09/06/25 16:00 BMI result Body Mass Index 22.7 Objective Data Active Medications Acetaminophen (Acetaminophen 325 Mg Tablet) 650 mg PO Q6H PRN PRN Reason: Pain, Mild 1-3,fever,headache Calcium Carbonate (Calcium Carbonate 750 Mg Tab.Chew) 750 mg PO Q4H PRN PRN Reason: Heartburn Folic Acid (Folic Acid 1 Mg Tablet) 1 mg PO DAILY [facility] Stop: 09/09/25 08:59 Last Admin: 09/06/25 09:19 Dose: 1 mg Documented By: VANDANA Ceftriaxone Sodium 1 gm/ (Sodium Chloride) 50 mls @ 100 mls/hr IV Q24H [facility] Last Infusion: 09/06/25 02:53 Dose: Infused Documented By: ANTONINO Sodium Chloride (Ns) 1,000 mls @ 50 mls/hr IVCONT .Q20H [facility] Stop: 09/08/25 01:14 Last Admin: 09/06/25 09:17 Dose: 50 mls/hr Documented By: VANDANA Magnesium Hydroxide (Milk Of Magnesia 30 Ml Oral.Susp) 30 ml PO DAILY PRN PRN Reason: Constipation Melatonin (Melatonin 3 Mg Tablet) 6 mg PO BEDTIME PRN PRN Reason: Insomnia Multivitamins/Vitamin C (Multivitamin Tablet) 1 tab PO DAILY [facility] Stop: 09/09/25 08:59 Last Admin: 09/06/25 09:19 Dose: 1 tab Documented By: VANDANA Ondansetron HCl (Ondansetron Hcl 4 Mg/2 Ml Vial) 4 mg IVPUSH Q8H PRN PRN Reason: Nausea and Vomiting Last Admin: 09/06/25 02:17 Dose: 4 mg Documented By: KURT Oxycodone HCl (Oxycodone Hcl Immed Release 5 Mg Tablet) 5 mg PO Q6H PRN PRN Reason: Pain, Severe (Pain Scale 7-10) Last Admin: 09/06/25 09:51 Dose: 5 mg Documented By: VANDANA Sodium Chloride (0.9 % Sodium Chloride Flush 3 Ml Syringe) 3 ml IVFLUSH QSHIFT [facility] Last Admin: 09/06/25 16:10 Dose: Not Given Documented By: GABI Non-Admin Reason: IV Running Thiamine HCl (Thiamine Hcl 100 Mg Tablet) 100 mg PO DAILY [facility] Stop: 09/09/25 08:59 Last Admin: 09/06/25 09:19 Dose: 100 mg Documented By: VANDANA Tramadol HCl (Tramadol Hcl 50 Mg Tablet) 50 mg PO Q6H PRN PRN Reason: Pain, Moderate(Pain Scale 4-6) Labs 09/06/25 06:19 09/06/25 06:19 Labs: Laboratory Results - last 24 hr 09/05/25 09/06/25 09/06/25 19:18 04:26 04:54 MCV 98.2 H MCH 35.1 H MCHC 35.7 H RDW 18.2 H Plt Count 218 MPV 10.6 Immature Gran % (Auto) 0.3 Neut % (Auto) 60.7 Lymph % (Auto) 23.1 [place] % (Auto) 15.2 H Eos % (Auto) 0.3 Baso % (Auto) 0.4 Lymph # (Auto) 2.7 [place] # (Auto) 1.8 H Eos # (Auto) 0.0 Baso # (Auto) 0.1 Abs Immat Gran (auto) 0.04 H Absolute Neuts (auto) 7.0 Absolute Nucleated RBC 0.000 Nucleated RBC % (auto) 0.0 Anion Gap 21 H Estim Creat Clear Calc 8.5 Estimated GFR 6 Random Glucose 99 Calcium 8.9 Magnesium 2.4 Iron TIBC % Saturation Unsat Iron Binding Total Bilirubin 2.3 H Direct Bilirubin 1.4 H AST 78 H ALT 18 Alkaline Phosphatase 130 H Total Protein 8.3 H Albumin 2.9 L Vitamin B12 Folate Beta HCG, Quant 3 Urine Color Yellow Urine Appearance Clear Urine pH 6.0 Ur Specific [place] 1.015 Urine Protein Trace Urine Glucose (UA) Negative Urine Ketones Negative Urine Blood Negative Urine Nitrite Negative Ur Leukocyte Esterase Negative U Random Total Protein 19 H Ur Random Sodium < 20.0 Urine Creatinine 181.44 Peritoneal WBC Peritoneal RBC Periton Neutrophils Periton Lymphocytes Peritoneal Monocytes Peritoneal Other Cells Urine Opiates Screen POSITIVE H Ur Buprenorphine Scrn Not Detected Ur Oxycodone Screen Positive H Urine Methadone Screen Not Detected Urine Fentanyl Screen Not Detected Ur Barbiturates Screen Not Detected Ur Phencyclidine Scrn Not Detected Ur Amphetamines Screen Not Detected U Benzodiazepines Scrn Not Detected Urine Cocaine Screen Not Detected U Marijuana (THC) Screen Not Detected 09/06/25 09/06/25 09/06/25 06:19 06:20 11:50 MCV 98.9 H MCH 35.0 H MCHC 35.4 H RDW 18.2 H Plt Count 165 MPV 11.1 Immature Gran % (Auto) 0.3 Neut % (Auto) 52.2 Lymph % (Auto) 30.4 [place] % (Auto) 15.4 H Eos % (Auto) 1.2 Baso % (Auto) 0.5 Lymph # (Auto) 2.6 [place] # (Auto) 1.3 H Eos # (Auto) 0.1 Baso # (Auto) 0.0 Abs Immat Gran (auto) 0.03 Absolute Neuts (auto) 4.5 Absolute Nucleated RBC 0.000 Nucleated RBC % (auto) 0.0 Anion Gap 14 Estim Creat Clear Calc 9.7 Estimated GFR 7 Random Glucose 79 Calcium 8.4 Magnesium Iron 89 TIBC 179 L % Saturation 50 Unsat Iron Binding 90 Total Bilirubin 1.8 H Direct Bilirubin AST 78 H ALT 13 Alkaline Phosphatase 100 Total Protein 6.8 Albumin 2.5 L Vitamin B12 1045 H Folate 2.7 L Beta HCG, Quant Urine Color Urine Appearance Urine pH Ur Specific [place] Urine Protein Urine Glucose (UA) Urine Ketones Urine Blood Urine Nitrite Ur Leukocyte Esterase U Random Total Protein Ur Random Sodium Urine Creatinine Peritoneal WBC 0.221 Peritoneal RBC < 0.002 [place] Neutrophils 15 Periton Lymphocytes 9 Peritoneal Monocytes 6 Peritoneal Other Cells 70 Urine Opiates Screen Ur Buprenorphine Scrn Ur Oxycodone Screen Urine Methadone Screen Urine Fentanyl Screen Ur Barbiturates Screen Ur Phencyclidine Scrn Ur Amphetamines Screen U Benzodiazepines Scrn Urine Cocaine Screen U Marijuana (THC) Screen Microbiology Microbiology Results: Microbiology 09/06/25 11:50 Gram Stain - Final Paracentesis Fluid Assessment and Plan (1) Abdominal ascites: Status: Acute Plan Pt is a 49 yo female with a pmhx significant for alcohol use disorder, etoh cirrhosis, tobacco use and anxiety/depression, who presented to the ED due to ascites, elevated cr, and pain and decreased appetite. acute renal failure - CT without obstruction - neprhology consulted, think likely secondary to hypoperfusion from severe dehydration; pt said limited fluid intake other than alcohol for the past 2 weeks - NS @50 ml/h x2L - check urine sodium and creatinine - monitor BMP alcoholic cirrhosis with ascites - diagnostic and therapeutic paracentesis 09/06, drained 5.1L - ceftriaxone for SBP prophylaxis - GI consult for ascites management Hyponatremia - in the setting of above - IVF as above - monitor alcohol use disorder - monitor CIWA - addiction med consult - B12, folic acid, multivitamin Macrocytic anemia - B12, folate, iron panel - monitor CBC hyponatremic hypochloremic metabolic acidosis - likely due to renal failure and fluid overload - limit IVF due to fluid overload - paracentesis ordered - nephrology consult as above - monitor BMP - tele tobacco use disoder - smoking cessation encouraged med rec pending full code VTE prophy: SCDs pending paracentesis Pt with acute renal failure in the setting of alcoholic cirrhosis with ascites, requiring continued admission for administration of gentle IV fluid resuscitation and close monitoring of labs and fluid status. Quality Stroke Does the patient have a stroke diagnosis?: No VTE Prior VTE?: No VTE Risk Level:: Medical - moderate - high VTE Device Contraindication: N/A - Device Ordered VTE Drug Contraindication: Treatment Not Indicated
--- NOTE | 2025-09-06 18:35 | MHC.RECOVRN ---
Late entry Consult placed to addiction medicine for alcohol use. Tw met with pt in 460-1 at approximately 930am On approach pt was laying in bed watching television. She reports she is hungry but unable to eat and is eager for paracentesis in order to feel more comfortable TW was notified by primary RN that pt is able to eat and information was relayed to the pt. Pt reports a mild tremor but denies other symptoms of withdrawal at this time. No restlessness or diaphoresis noted or reported. ACS team to continue to follow and will meet with pt again to complete Rec/BH assessment.
[2025-09-07] VITALS (7 sets, daily range): BP systolic 80–113; BP diastolic 41–58; PULSE 72–97; RESP 16–20; TEMP 36.9–37.6; O2SAT 92–94
[2025-09-07] MEDS: Albumin Human 25 % 100 ML 133.33 ML IV ×2 (04:05→04:54)
[2025-09-07 06:24] LABS: MANUAL DIFF FLAG NO
[2025-09-07 06:29] LABS: Hematocrit 21.4 % (37.0-47.0); Hemoglobin 7.6 g/dl (12.0-16.0); Imm Gran Abs Auto 0.04 X10*3/uL (0.00-0.03); Imm Gran Pct Auto 0.6 % (0.0-0.4); Lymphocytes Absolute Auto 2.4 X10*3/uL (1.2-4.9); Mean Corpuscular HGB Conc 35.5 g/dl (31.0-35.0); Mean Corpuscular Hemoglobin 34.7 pg (27.0-33.0); Mean Corpuscular Volume 97.7 fL (80.0-98.0); NRBC Pct Auto 0.0 /100WBC (0.0-0.2); Platelet Count 143 X10*3/uL (160-400); Red Blood Count 2.19 X10*6/uL (4.20-5.50); White Blood Count 6.7 X10*3/uL (4.8-10.8)
[2025-09-07 06:30] LABS: NRBC Abs Auto 0.000 X10*3/uL (0.0-0.012)
[2025-09-07 06:49] LABS: Alanine Aminotransferase 21 U/L (0-31); Albumin Level 3.3 g/dL (3.5-5.0); Alkaline Phosphatase 103 U/L (39-117); Anion Gap 14 (12-20); Aspartate Amino Transferase 104 U/L (5-31); Blood Urea Nitrogen 59 mg/dL (9-16); Calcium 8.4 mg/dL (8.4-10.2); Carbon Dioxide 21 mmol/L (22-29); Chloride 100 mmol/L (96-108); Creatinine Clr Calc Pharmacy 14.3; Estimated Glomerular Filt Rate 12; Magnesium 2.0 mg/dL (1.6-2.6); Potassium 2.8 mmol/L (3.3-5.1); Sodium 132 mmol/L (135-145); Total Protein 6.8 g/dL (6.5-8.0)
[2025-09-07] MEDS: Potassium Chloride Packet 20 MEQ PACKET 40 MEQ PO (09:06)
[2025-09-07] MEDS: Potassium Chloride/H20 10 MEQ/100 ML PIGGYBACK 100 MEQ IV ×4 (09:06→14:02)
[2025-09-07] MEDS: oxyCODONE HCl Immed Release 5 MG TABLET PO (09:12)
[2025-09-07] MEDS: 0.9 % Sodium Chloride Flush 3 ML SYRINGE IVFLUSH ×2 (09:15→17:57)
[2025-09-07 13:25] LABS: Hematocrit 23.0 % (37.0-47.0); Hemoglobin 8.2 g/dl (12.0-16.0); Mean Corpuscular HGB Conc 35.7 g/dl (31.0-35.0); Mean Corpuscular Hemoglobin 35.2 pg (27.0-33.0); Mean Corpuscular Volume 98.7 fL (80.0-98.0); NRBC Abs Auto 0.000 X10*3/uL (0.0-0.012); NRBC Pct Auto 0.0 /100WBC (0.0-0.2); Platelet Count 142 X10*3/uL (160-400); Red Blood Count 2.33 X10*6/uL (4.20-5.50); White Blood Count 6.2 X10*3/uL (4.8-10.8)
--- NOTE | 2025-09-07 17:26 | HO.PM.IMPN ---
Subjective Subjective Date of Service: 09/07/25 Interval History: Underwent paracentesis yesterday were 5.1 L were drawn off H&H continues to drop, 11.4-->7.6 Pt reports dark-colored stool Potassium low at 2.8 Creatinine mildly increasing Abdominal pain and distention improved GI plans for EGD in the morning Review of Systems Review of Systems: Yes all other systems are reviewed and are negative Physical Exam Exam: Exam: General: AOx3, no acute distress Resp: CTA bilaterally CVS: S1, S2, RRR GI: +BS, NT, soft, distention improved Skin: Warm, dry Neuro: Cranial nerves II-XII grossly intact bilaterally. Motor grossly intact bilaterally Extremities: No edema Psych: Appropriate affect Vital Signs: Vital Signs: Last Vital Signs Temp 98.4 F 09/07/25 16:00 Pulse 91 09/07/25 16:00 Resp 20 09/07/25 16:00 BP 113/54 L 09/07/25 16:00 Pulse Ox 92 09/07/25 16:00 O2 Del Method Room Air 09/07/25 16:00 BMI result Body Mass Index 22.7 Objective Data Active Medications Acetaminophen (Acetaminophen 325 Mg Tablet) 650 mg PO Q6H PRN PRN Reason: Pain, Mild 1-3,fever,headache Alprazolam (Alprazolam 0.5 Mg Tablet) 1 mg PO TID PRN PRN Reason: Anxiety Calcium Carbonate (Calcium Carbonate 750 Mg Tab.Chew) 750 mg PO Q4H PRN PRN Reason: Heartburn Cyclobenzaprine HCl (Cyclobenzaprine Hcl 5 Mg Tablet) 5 mg PO BEDTIME PRN PRN Reason: Muscle Spasm Last Admin: 09/06/25 21:32 Dose: 5 mg Documented By: ELISEO Folic Acid (Folic Acid 1 Mg Tablet) 1 mg PO DAILY [facility] Stop: 09/09/25 08:59 Last Admin: 09/07/25 09:06 Dose: 1 mg Documented By: VIRGIL Ceftriaxone Sodium 1 gm/ (Sodium Chloride) 50 mls @ 100 mls/hr IV Q24H [facility] Last Infusion: 09/07/25 03:58 Dose: Infused Documented By: ELISEO Sodium Chloride (Ns) 1,000 mls @ 50 mls/hr IVCONT .Q20H [facility] Stop: 09/08/25 01:14 Last Admin: 09/07/25 09:15 Dose: 50 mls/hr Documented By: VIRGIL Magnesium Hydroxide (Milk Of Magnesia 30 Ml Oral.Susp) 30 ml PO DAILY PRN PRN Reason: Constipation Melatonin (Melatonin 3 Mg Tablet) 6 mg PO BEDTIME PRN PRN Reason: Insomnia Multivitamins/Vitamin C (Multivitamin Tablet) 1 tab PO DAILY [facility] Stop: 09/09/25 08:59 Last Admin: 09/07/25 09:06 Dose: 1 tab Documented By: VIRGIL Ondansetron HCl (Ondansetron Hcl 4 Mg/2 Ml Vial) 4 mg IVPUSH Q8H PRN PRN Reason: Nausea and Vomiting Last Admin: 09/06/25 02:17 Dose: 4 mg Documented By: KURT Oxycodone HCl (Oxycodone Hcl Immed Release 5 Mg Tablet) 5 mg PO Q6H PRN PRN Reason: Pain, Severe (Pain Scale 7-10) Last Admin: 09/07/25 09:12 Dose: 5 mg Documented By: VIRGIL Sertraline HCl (Sertraline Hcl 50 Mg Tablet) 50 mg PO DAILY [facility] Last Admin: 09/07/25 09:06 Dose: 50 mg Documented By: VIRGIL Sodium Chloride (0.9 % Sodium Chloride Flush 3 Ml Syringe) 3 ml IVFLUSH [facility] Last Admin: 09/07/25 09:15 Dose: 3 ml Documented By: VIRGIL Thiamine HCl (Thiamine Hcl 100 Mg Tablet) 100 mg PO DAILY [facility] Stop: 09/09/25 08:59 Last Admin: 09/07/25 09:06 Dose: 100 mg Documented By: VIRGIL Tramadol HCl (Tramadol Hcl 50 Mg Tablet) 50 mg PO Q6H PRN PRN Reason: Pain, Moderate(Pain Scale 4-6) Last Admin: 09/06/25 21:33 Dose: 50 mg Documented By: ELISEO Trazodone HCl (Trazodone Hcl 50 Mg Tablet) 50 mg PO BEDTIME PRN PRN Reason: for insomnia Last Admin: 09/06/25 21:33 Dose: 50 mg Documented By: ELISEO Labs 09/07/25 13:12 09/07/25 05:57 Labs: Laboratory Results - last 24 hr 09/07/25 09/07/25 05:57 13:12 MCV 97.7 98.7 H MCH 34.7 H 35.2 H MCHC 35.5 H 35.7 H RDW 17.9 H 18.2 H Plt Count 143 L 142 L MPV 10.9 10.8 Immature Gran % (Auto) 0.6 H Neut % (Auto) 48.3 Lymph % (Auto) 35.8 [place] % (Auto) 13.9 H Eos % (Auto) 1.0 Baso % (Auto) 0.4 Lymph # (Auto) 2.4 [place] # (Auto) 0.9 Eos # (Auto) 0.1 Baso # (Auto) 0.0 Abs Immat Gran (auto) 0.04 H Absolute Neuts (auto) 3.2 Absolute Nucleated RBC 0.000 0.000 Nucleated RBC % (auto) 0.0 0.0 Anion Gap 14 Estim Creat Clear Calc 14.3 Estimated GFR 12 Random Glucose 90 Calcium 8.4 Magnesium 2.0 Total Bilirubin 1.2 H AST 104 H ALT 21 Alkaline Phosphatase 103 Total Protein 6.8 Albumin 3.3 L Microbiology Microbiology Results: Microbiology 09/06/25 11:50 Gram Stain - Final Paracentesis Fluid Anaerobic Culture - Preliminary No growth to date. Body Fluid Culture - Preliminary No growth after 1 day Assessment and Plan (1) Alcoholic cirrhosis of liver with ascites: Status: Acute (2) AMANDA (acute kidney injury): Status: Acute Plan Pt is a 49 yo female with a pmhx significant for alcohol use disorder, etoh cirrhosis, tobacco use and anxiety/depression, who presented to the ED due to ascites, elevated cr, and pain and decreased appetite. acute renal failure - creatinine slowly improving - CT without obstruction - neprhology consulted, think likely secondary to hypoperfusion from severe dehydration; pt said limited fluid intake other than alcohol for the past 2 weeks - NS @50 ml/h x2L - urine sodium low - monitor BMP alcoholic cirrhosis with ascites - diagnostic and therapeutic paracentesis 09/06, drained 5.1L - ceftriaxone for SBP prophylaxis - GI consult for ascites management Acute on chronic blood loss anemia - concerning for UGIB - pt reports dark colored and tarry stools - Hgb dropped from 11.7-->7.6 - GI plans for EGD tomorrow - IV PPI, monitor H&H Hyponatremia - in the setting of above - slowly improving - IVF as above - monitor alcohol use disorder - monitor CIWA - addiction med consult - B12, folic acid, multivitamin Macrocytic anemia - B12, folate, iron panel - monitor CBC tobacco use disoder - smoking cessation encouraged full code VTE prophy: SCDs Pt with acute renal failure and concerns for acute blood loss anemia from UGIB in the setting of alcoholic cirrhosis with ascites, requiring continued admission for administration of gentle IV fluid resuscitation and close monitoring of labs and fluid status. Quality Stroke Does the patient have a stroke diagnosis?: No VTE Prior VTE?: No VTE Risk Level:: Medical - moderate - high VTE Device Contraindication: N/A - Device Ordered VTE Drug Contraindication: Treatment Not Indicated
[2025-09-08] VITALS (8 sets, daily range): BP systolic 90–131; BP diastolic 47–75; PULSE 84–96; RESP 16–18; TEMP 36.6–37.7; O2SAT 92–97
[2025-09-08] MEDS: oxyCODONE HCl Immed Release 5 MG TABLET PO ×2 (00:06→19:56)
[2025-09-08] MEDS: 0.9 % Sodium Chloride Flush 3 ML SYRINGE IVFLUSH ×4 (00:07→19:56)
[2025-09-08 06:48] LABS: MANUAL DIFF FLAG NO
[2025-09-08 07:05] LABS: Hematocrit 25.0 % (37.0-47.0); Hemoglobin 8.8 g/dl (12.0-16.0); Imm Gran Abs Auto 0.03 X10*3/uL (0.00-0.03); Imm Gran Pct Auto 0.4 % (0.0-0.4); Lymphocytes Absolute Auto 2.0 X10*3/uL (1.2-4.9); Mean Corpuscular HGB Conc 35.2 g/dl (31.0-35.0); Mean Corpuscular Hemoglobin 35.1 pg (27.0-33.0); Mean Corpuscular Volume 99.6 fL (80.0-98.0); NRBC Abs Auto 0.000 X10*3/uL (0.0-0.012); NRBC Pct Auto 0.0 /100WBC (0.0-0.2); Platelet Count 169 X10*3/uL (160-400); Red Blood Count 2.51 X10*6/uL (4.20-5.50); White Blood Count 7.2 X10*3/uL (4.8-10.8)
[2025-09-08 07:12] LABS: Alanine Aminotransferase 37 U/L (0-31); Albumin Level 2.9 g/dL (3.5-5.0); Alkaline Phosphatase 110 U/L (39-117); Anion Gap 10 (12-20); Aspartate Amino Transferase 156 U/L (5-31); Blood Urea Nitrogen 42 mg/dL (9-16); Calcium 8.4 mg/dL (8.4-10.2); Carbon Dioxide 20 mmol/L (22-29); Chloride 107 mmol/L (96-108); Potassium 3.3 mmol/L (3.3-5.1); Sodium 134 mmol/L (135-145); Total Protein 6.5 g/dL (6.5-8.0)
[2025-09-08 07:14] LABS: INTERNATIONAL NORM RATIO 1.4 (0.9-1.1); Prothrombin Time 17.0 SEC (11.2-13.5)
[2025-09-08 07:22] LABS: Creatinine Clr Calc Pharmacy 33.0; Estimated Glomerular Filt Rate 31
--- NOTE | 2025-09-08 12:36 | HO.PM.IMPN ---
Subjective Subjective Date of Service: 09/08/25 Interval History: H&H stable and mildly improved Kidney function greatly improved: 4.02-->1.74 Sodium improved; potassium low normal Pt reports has been experiencing dark-colored tarry stools for the past few weeks EGD planned for later in the afternoon Paracentesis neg for SBP Pt overall comfortable without abd swelling or pain No acute events overnight Review of Systems Review of Systems: Yes all other systems are reviewed and are negative Physical Exam Exam: Exam: General: AOx3, no acute distress Resp: CTA bilaterally CVS: S1, S2, RRR GI: +BS, NT, soft, no significant distention Skin: Warm, dry Neuro: Cranial nerves II-XII grossly intact bilaterally. Motor grossly intact bilaterally Extremities: No edema Psych: Appropriate affect Vital Signs: Vital Signs: Last Vital Signs Temp 98.3 F 09/08/25 08:00 Pulse 84 09/08/25 08:00 Resp 18 09/08/25 08:00 BP 93/47 L 09/08/25 08:00 Pulse Ox 92 09/08/25 08:00 O2 Del Method Room Air 09/08/25 08:00 BMI result Body Mass Index 22.7 Objective Data Active Medications Acetaminophen (Acetaminophen 325 Mg Tablet) 650 mg PO Q6H PRN PRN Reason: Pain, Mild 1-3,fever,headache Alprazolam (Alprazolam 0.5 Mg Tablet) 1 mg PO TID PRN PRN Reason: Anxiety Calcium Carbonate (Calcium Carbonate 750 Mg Tab.Chew) 750 mg PO Q4H PRN PRN Reason: Heartburn Cyclobenzaprine HCl (Cyclobenzaprine Hcl 5 Mg Tablet) 5 mg PO BEDTIME PRN PRN Reason: Muscle Spasm Last Admin: 09/06/25 21:32 Dose: 5 mg Documented By: ELISEO Folic Acid (Folic Acid 1 Mg Tablet) 1 mg PO DAILY [facility] Stop: 09/09/25 08:59 Last Admin: 09/08/25 09:30 Dose: 1 mg Documented By: VIRGIL Ceftriaxone Sodium 1 gm/ (Sodium Chloride) 50 mls @ 100 mls/hr IV Q24H [facility] Last Infusion: 09/08/25 02:49 Dose: Infused Documented By: MAXIME Magnesium Hydroxide (Milk Of Magnesia 30 Ml Oral.Susp) 30 ml PO DAILY PRN PRN Reason: Constipation Melatonin (Melatonin 3 Mg Tablet) 6 mg PO BEDTIME PRN PRN Reason: Insomnia Multivitamins/Vitamin C (Multivitamin Tablet) 1 tab PO DAILY [facility] Stop: 09/09/25 08:59 Last Admin: 09/08/25 09:34 Dose: 1 tab Documented By: VIRGIL Ondansetron HCl (Ondansetron Hcl 4 Mg/2 Ml Vial) 4 mg IVPUSH Q8H PRN PRN Reason: Nausea and Vomiting Last Admin: 09/06/25 02:17 Dose: 4 mg Documented By: KURT Oxycodone HCl (Oxycodone Hcl Immed Release 5 Mg Tablet) 5 mg PO Q6H PRN PRN Reason: Pain, Severe (Pain Scale 7-10) Last Admin: 09/08/25 00:06 Dose: 5 mg Documented By: MAXIME Pantoprazole Sodium (Pantoprazole Sodium 40 Mg/10 Ml Vial) 40 mg IVPUSH BID@0630,1630 [facility] Last Admin: 09/08/25 05:45 Dose: 40 mg Documented By: MAXIME Sertraline HCl (Sertraline Hcl 50 Mg Tablet) 50 mg PO DAILY [facility] Last Admin: 09/08/25 09:33 Dose: 50 mg Documented By: VIRGIL Sodium Chloride (0.9 % Sodium Chloride Flush 3 Ml Syringe) 3 ml IVFLUSH [facility] Last Admin: 09/08/25 09:30 Dose: 3 ml Documented By: VIRGIL Thiamine HCl (Thiamine Hcl 100 Mg Tablet) 100 mg PO DAILY [facility] Stop: 09/09/25 08:59 Last Admin: 09/08/25 09:30 Dose: 100 mg Documented By: VIRGIL Tramadol HCl (Tramadol Hcl 50 Mg Tablet) 50 mg PO Q6H PRN PRN Reason: Pain, Moderate(Pain Scale 4-6) Last Admin: 09/06/25 21:33 Dose: 50 mg Documented By: ELISEO Trazodone HCl (Trazodone Hcl 50 Mg Tablet) 50 mg PO BEDTIME PRN PRN Reason: for insomnia Last Admin: 09/08/25 00:06 Dose: 50 mg Documented By: MAXIME Labs 09/08/25 06:44 09/08/25 06:44 Labs: Laboratory Results - last 24 hr 09/07/25 09/08/25 13:12 06:44 MCV 98.7 H 99.6 H MCH 35.2 H 35.1 H MCHC 35.7 H 35.2 H RDW 18.2 H 18.1 H Plt Count 142 L 169 MPV 10.8 10.7 Immature Gran % (Auto) 0.4 Neut % (Auto) 58.8 Lymph % (Auto) 27.8 [place] % (Auto) 10.9 Eos % (Auto) 1.4 Baso % (Auto) 0.7 Lymph # (Auto) 2.0 [place] # (Auto) 0.8 Eos # (Auto) 0.1 Baso # (Auto) 0.1 Abs Immat Gran (auto) 0.03 Absolute Neuts (auto) 4.2 Absolute Nucleated RBC 0.000 0.000 Nucleated RBC % (auto) 0.0 0.0 PT 17.0 H INR 1.4 H Anion Gap 10 L Estim Creat Clear Calc 33.0 Estimated GFR 31 Random Glucose 105 Calcium 8.4 Total Bilirubin 2.2 H AST 156 H ALT 37 H Alkaline Phosphatase 110 Total Protein 6.5 Albumin 2.9 L Microbiology Microbiology Results: Microbiology 09/06/25 11:50 Gram Stain - Final Paracentesis Fluid Anaerobic Culture - Preliminary No growth to date. Body Fluid Culture - Final No growth after 2 days Assessment and Plan (1) Alcoholic cirrhosis of liver with ascites: Status: Acute (2) Acute renal failure: Status: Acute Plan Pt is a 49 yo female with a pmhx significant for alcohol use disorder, etoh cirrhosis, tobacco use and anxiety/depression, who presented to the ED due to ascites, elevated cr, and pain and decreased appetite. acute renal failure - creatinine improved significantly today: 4.02-->1.74 - CT without obstruction - neprhology consulted, think likely secondary to hypoperfusion from severe dehydration; pt said limited fluid intake other than alcohol for the past 2 weeks - NS @50 ml/h x2L from 09/06-09/07 - monitor BMP alcoholic cirrhosis with ascites - diagnostic and therapeutic paracentesis 09/06, drained 5.1L - no SBP: ceftriaxone stopped - GI consult for ascites management Acute on chronic blood loss anemia - concerning for UGIB; H&H stable today - pt reports dark colored and tarry stools the past few weeks - Hgb dropped from 11.7-->7.6, now 8.8 - GI plans for EGD this afternoon - IV PPI, monitor H&H Hyponatremia - in the setting of above - slowly improving, almost resolved - treated with IVF as above - monitor alcohol use disorder - CIWA has been low, no need for phenobarb - addiction med consult - B12, folic acid, multivitamin Macrocytic anemia - folate low; B12 high, iron WNL - likely in the setting of alcohol use disorder tobacco use disoder - smoking cessation encouraged full code VTE prophy: SCDs Pt with acute renal failure and concerns for acute blood loss anemia from UGIB in the setting of alcoholic cirrhosis with ascites, requiring continued admission for administration of gentle IV fluid resuscitation and close monitoring of labs and fluid status. Pt also be undergoing EGD evaluation of possible GI bleed. Quality Stroke Does the patient have a stroke diagnosis?: No VTE Prior VTE?: No VTE Risk Level:: Medical - moderate - high VTE Device Contraindication: N/A - Device Ordered VTE Drug Contraindication: Treatment Not Indicated
--- NOTE | 2025-09-08 15:53 | P.CONAN_ITS ---
HPI - Anesthesia Eval Consult details Narrative: For EGD PMFSH Active Problems Active Problems: All Active Problems AMANDA (acute kidney injury) (Acute) Abdominal ascites (Acute) Hyponatremia with excess extracellular fluid volume (Acute) Anemia (Acute) Alcoholic cirrhosis of liver with ascites (Acute) Alcoholic liver disease (Acute) Acute renal failure (Acute) Confusion (Acute) Fracture of neck of right humerus (Acute) Flank pain (Acute) Thiamine deficiency (Acute) Physical exam (Acute) Mid back pain (Acute) Fracture of left ankle, lateral malleolus (Acute) Hepatic encephalopathy (Acute) Colon wall thickening (Acute) Elevated LFTs (Acute) Alcohol intoxication (Acute) Vomiting (Acute) Abdominal distention (Acute) Alcohol withdrawal syndrome (Acute) Hospital discharge follow-up (Acute) Left humeral fracture (Acute) Positive occult stool blood test (Acute) Rib pain on left side (Acute) Left arm pain (Acute) Uncontrolled hypertension (Acute) Blood glucose elevated (Acute) Women's annual routine gynecological examination (Acute) Screening for colon cancer (Acute) Dry cough (Acute) Adult general medical exam (Acute) Screening for breast cancer (Acute) Cervical cancer screening (Acute) Diabetes mellitus screening (Acute) Alcohol use disorder, severe, dependence (Acute) Lumbar pain (Acute) Hyperkalemia (Acute) Insomnia due to alcohol (Acute) UTI (urinary tract infection) (Acute) Benzodiazepine abuse (Acute) Alcohol abuse (Acute) Urge incontinence of urine (Acute) Mild recurrent major depression (Acute) Alcoholism (Acute) Alcoholic cirrhosis (Acute) Easy bruising (Acute) Sprain of ligament of left ankle (Acute) Left ankle pain (Acute) Alcohol use disorder (Acute) Tobacco use disorder (Acute) Marijuana smoker (Acute) Anxiety (Acute) Past Medical History Medical History Alcohol intoxication Insomnia due to alcohol Mild recurrent major depression Alcoholism Easy bruising Marijuana smoker Tobacco use disorder Alcohol use disorder Chronic liver disease Alcohol abuse Anxiety Depression Anxiety Alcoholic cirrhosis Functional capacity: independent ambulation Patient : No Family History Family History Father No problems noted. Mother No problems noted. Family/Other Substance use disorder Maternal Grandmother Ovarian cancer Maternal Aunt Ovarian cancer Family history of problems with anesthesia: No Surgical History Surgical History Hx of endoscopy History of colonoscopy History of Problems with Anesthesia: No Social History Social History Household Members: Spouse and Children Housing: House Do you presently have visiting nurse or other home services: No Alcohol intake: current Alcohol intake frequency: 0-2 drinks per day Alcohol type: beer and wine Comment: low fall risk Patient Tobacco Use Status: Current everyday Tobacco user Tobacco use type: Cigarette Cigarette Packs Per Day: 0.5 Cigarettes Per Day: 10.0 Years Smoked: 30 e-Cigarette/Vaping Use: Never Used Second Hand Smoke Exposure: Yes Substance Use Type: Marijuana service: No Current occupational status: unemployed Cognitive needs: No Hearing needs: No Vision needs: No Meds Allergies Allergy/AdvReac Type Severity Reaction Status Date / Time No Known Allergies (No Known Allergy Verified 09/05/25 19:02 Allergies*) Active Medications: Current Medications Acetaminophen (Acetaminophen 325 Mg Tablet) 650 mg PO Q6H PRN PRN Reason: Pain, Mild 1-3,fever,headache Alprazolam (Alprazolam 0.5 Mg Tablet) 1 mg PO TID PRN PRN Reason: Anxiety Calcium Carbonate (Calcium Carbonate 750 Mg Tab.Chew) 750 mg PO Q4H PRN PRN Reason: Heartburn Cyclobenzaprine HCl (Cyclobenzaprine Hcl 5 Mg Tablet) 5 mg PO BEDTIME PRN PRN Reason: Muscle Spasm Last Admin: 09/06/25 21:32 Dose: 5 mg Folic Acid (Folic Acid 1 Mg Tablet) 1 mg PO DAILY KAITY Stop: 09/09/25 08:59 Last Admin: 09/08/25 09:30 Dose: 1 mg Magnesium Hydroxide (Milk Of Magnesia 30 Ml Oral.Susp) 30 ml PO DAILY PRN PRN Reason: Constipation Melatonin (Melatonin 3 Mg Tablet) 6 mg PO BEDTIME PRN PRN Reason: Insomnia Multivitamins/Vitamin C (Multivitamin Tablet) 1 tab PO DAILY KAITY Stop: 09/09/25 08:59 Last Admin: 09/08/25 09:34 Dose: 1 tab Ondansetron HCl (Ondansetron Hcl 4 Mg/2 Ml Vial) 4 mg IVPUSH Q8H PRN PRN Reason: Nausea and Vomiting Last Admin: 09/06/25 02:17 Dose: 4 mg Oxycodone HCl (Oxycodone Hcl Immed Release 5 Mg Tablet) 5 mg PO Q6H PRN PRN Reason: Pain, Severe (Pain Scale 7-10) Last Admin: 09/08/25 00:06 Dose: 5 mg Pantoprazole Sodium (Pantoprazole Sodium 40 Mg/10 Ml Vial) 40 mg IVPUSH BID@0630,1630 [facility] Last Admin: 09/08/25 05:45 Dose: 40 mg Sertraline HCl (Sertraline Hcl 50 Mg Tablet) 50 mg PO DAILY [facility] Last Admin: 09/08/25 09:33 Dose: 50 mg Sodium Chloride (0.9 % Sodium Chloride Flush 3 Ml Syringe) 3 ml IVFLUSH QSHIFT [facility] Last Admin: 09/08/25 09:30 Dose: 3 ml Thiamine HCl (Thiamine Hcl 100 Mg Tablet) 100 mg PO DAILY [facility] Stop: 09/09/25 08:59 Last Admin: 09/08/25 09:30 Dose: 100 mg Tramadol HCl (Tramadol Hcl 50 Mg Tablet) 50 mg PO Q6H PRN PRN Reason: Pain, Moderate(Pain Scale 4-6) Last Admin: 09/06/25 21:33 Dose: 50 mg Trazodone HCl (Trazodone Hcl 50 Mg Tablet) 50 mg PO BEDTIME PRN PRN Reason: for insomnia Last Admin: 09/08/25 00:06 Dose: 50 mg Exam Height,Weight and Vital Signs: Height 5 ft 4 in Weight 59.9 kg Last Vital Signs Temp 98.4 F 09/08/25 12:00 Pulse 94 09/08/25 12:00 Resp 18 09/08/25 12:00 BP 90/52 L 09/08/25 12:00 Pulse Ox 94 09/08/25 12:00 O2 Del Method Room Air 09/08/25 12:00 Pertinent Lab Results Pertinent Lab Results: Laboratory Tests 09/05/25 09/06/25 09/06/25 19:18 04:26 04:54 WBC 11.6 H RBC 3.25 L Hgb 11.4 L Hct 31.9 L MCV 98.2 H MCH 35.1 H MCHC 35.7 H RDW 18.2 H Plt Count 218 MPV 10.6 Immature Gran % (Auto) 0.3 Neut % (Auto) 60.7 Lymph % (Auto) 23.1 Treasure % (Auto) 15.2 H Eos % (Auto) 0.3 Baso % (Auto) 0.4 Lymph # (Auto) 2.7 Treasure # (Auto) 1.8 H Eos # (Auto) 0.0 Baso # (Auto) 0.1 Abs Immat Gran (auto) 0.04 H Absolute Neuts (auto) 7.0 Absolute Nucleated RBC 0.000 Nucleated RBC % (auto) 0.0 PT INR Sodium 127 L Potassium 3.5 Chloride 92 L Carbon Dioxide 18 L Anion Gap 21 H BUN 62 H Creatinine 6.72 H* Estim Creat Clear Calc 8.5 Estimated GFR 6 Random Glucose 99 Calcium 8.9 Magnesium 2.4 Iron TIBC % Saturation Unsat Iron Binding Total Bilirubin 2.3 H Direct Bilirubin 1.4 H AST 78 H ALT 18 Alkaline Phosphatase 130 H Total Protein 8.3 H Albumin 2.9 L Vitamin B12 Folate Beta HCG, Quant 3 Urine Color Yellow Urine Appearance Clear Urine pH 6.0 Ur Specific [place] 1.015 Urine Protein Trace Urine Glucose (UA) Negative Urine Ketones Negative Urine Blood Negative Urine Nitrite Negative Ur Leukocyte Esterase Negative U Random Total Protein 19 H Ur Random Sodium < 20.0 Urine Creatinine 181.44 Peritoneal WBC Peritoneal RBC Periton Neutrophils Periton Lymphocytes Peritoneal Monocytes Peritoneal Other Cells Urine Opiates Screen POSITIVE H Ur Buprenorphine Scrn Not Detected Ur Oxycodone Screen Positive H Urine Methadone Screen Not Detected Urine Fentanyl Screen Not Detected Ur Barbiturates Screen Not Detected Ur Phencyclidine Scrn Not Detected Ur Amphetamines Screen Not Detected U Benzodiazepines Scrn Not Detected Urine Cocaine Screen Not Detected U Marijuana (THC) Screen Not Detected 09/06/25 09/06/25 09/06/25 06:19 06:20 11:50 WBC 8.7 RBC 2.74 L Hgb 9.6 L Hct 27.1 L MCV 98.9 H MCH 35.0 H MCHC 35.4 H RDW 18.2 H Plt Count 165 MPV 11.1 Immature Gran % (Auto) 0.3 Neut % (Auto) 52.2 Lymph % (Auto) 30.4 Treasure % (Auto) 15.4 H Eos % (Auto) 1.2 Baso % (Auto) 0.5 Lymph # (Auto) 2.6 Treasure # (Auto) 1.3 H Eos # (Auto) 0.1 Baso # (Auto) 0.0 Abs Immat Gran (auto) 0.03 Absolute Neuts (auto) 4.5 Absolute Nucleated RBC 0.000 Nucleated RBC % (auto) 0.0 PT INR Sodium 128 L Potassium 3.3 Chloride 96 Carbon Dioxide 21 L Anion Gap 14 BUN 62 H Creatinine 5.93 H* Estim Creat Clear Calc 9.7 Estimated GFR 7 Random Glucose 79 Calcium 8.4 Magnesium Iron 89 TIBC 179 L % Saturation 50 Unsat Iron Binding 90 Total Bilirubin 1.8 H Direct Bilirubin AST 78 H ALT 13 Alkaline Phosphatase 100 Total Protein 6.8 Albumin 2.5 L Vitamin B12 1045 H Folate 2.7 L Beta HCG, Quant Urine Color Urine Appearance Urine pH Ur Specific [place] Urine Protein Urine Glucose (UA) Urine Ketones Urine Blood Urine Nitrite Ur Leukocyte Esterase U Random Total Protein Ur Random Sodium Urine Creatinine Peritoneal WBC 0.221 Peritoneal RBC < 0.002 Periton Neutrophils 15 Periton Lymphocytes 9 Peritoneal Monocytes 6 Peritoneal Other Cells 70 Urine Opiates Screen Ur Buprenorphine Scrn Ur Oxycodone Screen Urine Methadone Screen Urine Fentanyl Screen Ur Barbiturates Screen Ur Phencyclidine Scrn Ur Amphetamines Screen U Benzodiazepines Scrn Urine Cocaine Screen U Marijuana (THC) Screen 09/07/25 09/07/25 09/08/25 05:57 13:12 06:44 WBC 6.7 6.2 7.2 RBC 2.19 L D 2.33 L 2.51 L Hgb 7.6 L D 8.2 L 8.8 L Hct 21.4 L D 23.0 L 25.0 L MCV 97.7 98.7 H 99.6 H MCH 34.7 H 35.2 H 35.1 H MCHC 35.5 H 35.7 H 35.2 H RDW 17.9 H 18.2 H 18.1 H Plt Count 143 L 142 L 169 MPV 10.9 10.8 10.7 Immature Gran % (Auto) 0.6 H 0.4 Neut % (Auto) 48.3 58.8 Lymph % (Auto) 35.8 27.8 Treasure % (Auto) 13.9 H 10.9 Eos % (Auto) 1.0 1.4 Baso % (Auto) 0.4 0.7 Lymph # (Auto) 2.4 2.0 Treasure # (Auto) 0.9 0.8 Eos # (Auto) 0.1 0.1 Baso # (Auto) 0.0 0.1 Abs Immat Gran (auto) 0.04 H 0.03 Absolute Neuts (auto) 3.2 4.2 Absolute Nucleated RBC 0.000 0.000 0.000 Nucleated RBC % (auto) 0.0 0.0 0.0 PT 17.0 H INR 1.4 H Sodium 132 L 134 L Potassium 2.8 L* 3.3 Chloride 100 107 Carbon Dioxide 21 L 20 L Anion Gap 14 10 L BUN 59 H 42 H Creatinine 4.02 H* 1.74 H Estim Creat Clear Calc 14.3 33.0 Estimated GFR 12 31 Random Glucose 90 105 Calcium 8.4 8.4 Magnesium 2.0 Iron TIBC % Saturation Unsat Iron Binding Total Bilirubin 1.2 H 2.2 H Direct Bilirubin AST 104 H 156 H ALT 21 37 H Alkaline Phosphatase 103 110 Total Protein 6.8 6.5 Albumin 3.3 L 2.9 L Vitamin B12 Folate Beta HCG, Quant Urine Color Urine Appearance Urine pH Ur Specific [place] Urine Protein Urine Glucose (UA) Urine Ketones Urine Blood Urine Nitrite Ur Leukocyte Esterase U Random Total Protein Ur Random Sodium Urine Creatinine Peritoneal WBC Peritoneal RBC Periton Neutrophils Periton Lymphocytes Peritoneal Monocytes Peritoneal Other Cells Urine Opiates Screen Ur Buprenorphine Scrn Ur Oxycodone Screen Urine Methadone Screen Urine Fentanyl Screen Ur Barbiturates Screen Ur Phencyclidine Scrn Ur Amphetamines Screen U Benzodiazepines Scrn Urine Cocaine Screen U Marijuana (THC) Screen Airway Mallampati Class: II TM Dist: <=3cm Neck ROM: Full Heart: ok Lungs: ok Assessment and Plan Assessment Anesthesia Assessment: Anesthesia Plan Discussed and Chart Reviewed Final Anesthetic Review Family History of Problems with Anesthesia: No History of Problems with Anesthesia: No NPO: Yes ASA Class: III Final Preanesthetic Review: No Changes in Pt Med Stat, Meds/Allgs Chart Reviewed, Consent Obtained/Reviewed and Anes Risks/Benef Reviewed Patient Risk: Intermediate Procedure Risk: Intermediate Anesthetic Plan Anesthetic Plan: Agree w/ Assess. and Plan and TIVA Disposition: Standard PACU
--- NOTE | 2025-09-08 16:12 | MHC.SHP ---
Pre-Procedural Eval Section A - 24 Hr Update-Section A only Date of Service: 09/08/25 The patient is an INPATIENT: Yes Changes since office visit: Yes New Medical Problems, Yes Changes in Medication and Yes Patient answered all questions; No Cold of Flu in the past 2 weeks The patient has been examined within 24 hours of the surgical procedure. The History & Physical has been completed within 30 days and I have reviewed it.: Yes Section B - Complete if H&P > 30 days Chief Complaint: New Renal Failure Allergies: Allergies Allergy/AdvReac Type Severity Reaction Status Date / Time No Known Allergies (No Known Allergy Verified 09/05/25 19:02 Allergies*) Plan Diagnosis/Plan: Unchanged I have reviewed the history and physical and performed a pertinent physical examination on my patient. No changes have occurred unless specified. Time Spent With Patient Time: Total time managing care of this patient today ____ minutes.
--- NOTE | 2025-09-08 16:42 | W.PM.OPN ---
Operative Note Operative Note Date of Service: 09/08/25 Narrative: FLEXIBLE TRANSORAL UPPER GASTROINTESTINAL ENDOSCOPY WITH BIOPSIES AND BAND LIGATION OF ESOPHAGEAL VARICES Pre-op diagnosis: anemia, GI bleeding Post-op diagnosis: Esophageal varices, portal hypertensive gastropathy, multiple gastric and duodenal ulcers Endoscopist:Eulogio Vasques MD Anesthesia:?MAC UPPER ENDOSCOPY Consent: Indications for the procedure and potential complications of bleeding, perforation, reaction to medications and missed diagnosis were discussed with the patient and informed consent was obtained. Instrument: Olympus GIF H 190 mid size upper endoscope Monitoring: Vital signs and clinical assessment, continuous EKG monitoring, Pulse oximetry, Carbon Dioxide monitoring and blood pressure monitoring were done throughout the procedure. Procedure: The patient was placed in the left lateral decubitis position and pre-procedure medications were administered and a bite block was placed. The endoscope was inserted into the mouth and advanced under direct vision to the third part of duodenum. A careful inspection was made as the upper endoscope was withdrawn including a retroflexed examination of the proximal stomach; Findings and interventions are described below. Findings: Larynx: Normal Esophagus: GE junction at 35 cms. Grade 3-4 two column non-bleeding esophageal varices from 30-35 cm with a red amelia signs. Band ligation was performed and two rubber bands were placed with flattening of the varices. Stomach: Moderate portal hypertensive gastropathy. Multiple 8 to 15 mm non- bleeding ulcers in the antrum - biopsies were obtained from the antrum to check for H pylori. No gastric varices and grade 2 flap valve on retroflexed examination of the cardia. Duodenum: Multiple 8 to 12 mm non-bleeding ulcers in the apex of the bulb and normal descending duodenum Intervention: Biopsies and esophageal band ligation as noted above Impression and Post Procedure Diagnosis: Endoscopy Findings: ESOPHAGUS: Grade 3-4 two column non-bleeding esophageal varices from 30-35 cm with a red amelia signs. Band ligation was performed and two rubber bands were placed with flattening of the varices. STOMACH: Portal hypertensive gastropathy, multiple nonbleeding antral ulcers DUODENUM: Multiple 8 to 12 mm non-bleeding ulcers in the apex of the bulb Peptic ulcer disease likely related to use of NSAIDs. Plan: 1. Monitor CBC daily 2. Continue pantoprazole IV twice daily 3. FU EGD in 3-4 months for follow-up of esophageal varices and confirm gastric and duodenal ulcers have healed. Above findings were reviewed with the patient.
--- NOTE | 2025-09-08 16:59 | PC.NURSE ---
patient medicated for nausea. no vomiting.
--- NOTE | 2025-09-08 17:07 | PC.NURSE ---
slight nausea remains but patient states its better. alert and awake. remains on her left lateral side.
[2025-09-09 03:33] VITALS: BP 105/51; PULSE 94; RESP 16; TEMP 37.4; O2SAT 94
[2025-09-09 07:26] LABS: Alanine Aminotransferase 37 U/L (0-31); Albumin Level 3.0 g/dL (3.5-5.0); Alkaline Phosphatase 108 U/L (39-117); Anion Gap 11 (12-20); Aspartate Amino Transferase 156 U/L (5-31); Blood Urea Nitrogen 27 mg/dL (9-16); Calcium 8.7 mg/dL (8.4-10.2); Carbon Dioxide 19 mmol/L (22-29); Chloride 107 mmol/L (96-108); Creatinine Clr Calc Pharmacy 49.5; Estimated Glomerular Filt Rate 49; Potassium 3.4 mmol/L (3.3-5.1); Sodium 134 mmol/L (135-145); Total Protein 6.9 g/dL (6.5-8.0)
--- NOTE | 2025-09-09 07:33 | HO.PM.IMPN ---
Subjective Subjective Date of Service: 09/09/25 Interval History: Addiction Medicine consulted Patient refusing all services and references , PT eval pending-was deferred due to nausea Discontinue CIWA as the patient is not scoring Review of Systems Review of Systems: Yes all other systems are reviewed and are negative Physical Exam Exam: Exam: General: AOx3, no acute distress Resp: CTA bilaterally CVS: S1, S2, RRR GI: +BS, NT, soft, no significant distention Patient does not appear to have good insight about her acute on chronic medical conditions Vital Signs: Vital Signs: Last Vital Signs Temp 99.3 F 09/09/25 03:33 Pulse 94 09/09/25 03:33 Resp 16 09/09/25 03:33 BP 105/51 L 09/09/25 03:33 Pulse Ox 94 09/09/25 03:33 O2 Del Method Room Air 09/09/25 03:33 BMI result Body Mass Index 22.7 Objective Data Active Medications Acetaminophen (Acetaminophen 325 Mg Tablet) 650 mg PO Q6H PRN PRN Reason: Pain, Mild 1-3,fever,headache Alprazolam (Alprazolam 0.5 Mg Tablet) 1 mg PO TID PRN PRN Reason: Anxiety Calcium Carbonate (Calcium Carbonate 750 Mg Tab.Chew) 750 mg PO Q4H PRN PRN Reason: Heartburn Cyclobenzaprine HCl (Cyclobenzaprine Hcl 5 Mg Tablet) 5 mg PO BEDTIME PRN PRN Reason: Muscle Spasm Last Admin: 09/08/25 22:52 Dose: 5 mg Documented By: MAXIME Folic Acid (Folic Acid 1 Mg Tablet) 1 mg PO DAILY KAITY Stop: 09/09/25 08:59 Last Admin: 09/08/25 09:30 Dose: 1 mg Documented By: VIRGIL Magnesium Hydroxide (Milk Of Magnesia 30 Ml Oral.Susp) 30 ml PO DAILY PRN PRN Reason: Constipation Melatonin (Melatonin 3 Mg Tablet) 6 mg PO BEDTIME PRN PRN Reason: Insomnia Multivitamins/Vitamin C (Multivitamin Tablet) 1 tab PO DAILY KAITY Stop: 09/09/25 08:59 Last Admin: 09/08/25 09:34 Dose: 1 tab Documented By: VIRGIL Ondansetron HCl (Ondansetron Hcl 4 Mg/2 Ml Vial) 4 mg IVPUSH Q8H PRN PRN Reason: Nausea and Vomiting Last Admin: 09/08/25 16:56 Dose: 4 mg Documented By: RADHIKA Oxycodone HCl (Oxycodone Hcl Immed Release 5 Mg Tablet) 5 mg PO Q6H PRN PRN Reason: Pain, Severe (Pain Scale 7-10) Last Admin: 09/08/25 19:56 Dose: 5 mg Documented By: MAXIME Pantoprazole Sodium (Pantoprazole Sodium 40 Mg/10 Ml Vial) 40 mg IVPUSH BID@0630,1630 [facility] Last Admin: 09/09/25 05:42 Dose: 40 mg Documented By: MAXIME Sertraline HCl (Sertraline Hcl 50 Mg Tablet) 50 mg PO DAILY [facility] Last Admin: 09/08/25 09:33 Dose: 50 mg Documented By: VIRGIL Sodium Chloride (0.9 % Sodium Chloride Flush 3 Ml Syringe) 3 ml IVFLUSH [facility] Last Admin: 09/08/25 19:56 Dose: 3 ml Documented By: MAXIME Thiamine HCl (Thiamine Hcl 100 Mg Tablet) 100 mg PO DAILY [facility] Stop: 09/09/25 08:59 Last Admin: 09/08/25 09:30 Dose: 100 mg Documented By: VIRGIL Tramadol HCl (Tramadol Hcl 50 Mg Tablet) 50 mg PO Q6H PRN PRN Reason: Pain, Moderate(Pain Scale 4-6) Last Admin: 09/06/25 21:33 Dose: 50 mg Documented By: ELISEO Trazodone HCl (Trazodone Hcl 50 Mg Tablet) 50 mg PO BEDTIME PRN PRN Reason: for insomnia Last Admin: 09/09/25 01:16 Dose: 50 mg Documented By: MAXIME Labs 09/09/25 06:59 09/09/25 06:59 Labs: Laboratory Results - last 24 hr 09/09/25 06:59 Anion Gap 11 L Estim Creat Clear Calc 49.5 Estimated GFR 49 Random Glucose 106 Calcium 8.7 Total Bilirubin 2.3 H AST 156 H ALT 37 H Alkaline Phosphatase 108 Total Protein 6.9 Albumin 3.0 L Microbiology Microbiology Results: Microbiology 09/06/25 11:50 Gram Stain - Final Paracentesis Fluid Anaerobic Culture - Preliminary No growth to date. Body Fluid Culture - Final No growth after 2 days Assessment and Plan (1) Alcoholic cirrhosis of liver with ascites: Status: Acute (2) Acute renal failure: Status: Acute Plan Pt is a 49 yo female with a pmhx significant for alcohol use disorder, etoh cirrhosis, tobacco use and anxiety/depression, who presented to the ED due to ascites, elevated cr, and pain and decreased appetite. acute renal failure likely in the setting of hepatorenal syndrome due to alcohol use disorder &NSAID nephropathy - - CT without obstruction - neprhology consulted, think likely secondary to hypoperfusion from severe dehydration; pt said limited fluid intake other than alcohol for the past 2 weeks - NS @50 ml/h x2L from 09/06-09/07 - monitor BMP alcoholic cirrhosis with ascites - diagnostic and therapeutic paracentesis 09/06, drained 5.1L - no SBP: ceftriaxone stopped - GI consult for ascites management Acute on chronic blood loss anemia secondary to Esophageal varices, portal hypertensive gastropathy, multiple gastric and duodenal ulcers Endoscopy Findings: ESOPHAGUS: Grade 3-4 two column non-bleeding esophageal varices from 30-35 cm with a red amelia signs. Band ligation was performed and two rubber bands were placed with flattening of the varices. STOMACH: Portal hypertensive gastropathy, multiple nonbleeding antral ulcers DUODENUM: Multiple 8 to 12 mm non-bleeding ulcers in the apex of the bulb ,Peptic ulcer disease likely related to use of NSAIDs. Plan: 1. Monitor CBC daily 2. Continue pantoprazole IV twice daily 3. FU EGD in 3-4 months for follow-up of esophageal varices and confirm gastric and duodenal ulcers have healed. Hyponatremia - in the setting of above - slowly improving, almost resolved - treated with IVF as above - monitor alcohol use disorder - WA DC'd - addiction med consulted- pt refusing all interventions and addiction med gave her materials for f/up - B12, folic acid, multivitamin Macrocytic anemia - folate low; B12 high, iron WNL - likely in the setting of alcohol use disorder tobacco use disoder - smoking cessation encouraged full code VTE prophy: SCDs Pt with acute renal failure and concerns for acute blood loss anemia from UGIB in the setting of alcoholic cirrhosis with ascites, requiring continued admission for administration of gentle IV fluid resuscitation and close monitoring of labs and fluid status. Pt needs PT eval to ensure safe DC - deferred today due to nausea Quality Stroke Does the patient have a stroke diagnosis?: No VTE Prior VTE?: No VTE Risk Level:: Medical - moderate - high VTE Device Contraindication: N/A - Device Ordered VTE Drug Contraindication: Treatment Not Indicated
[2025-09-09 07:54] LABS: Hematocrit 26.9 % (37.0-47.0); Hemoglobin 9.2 g/dl (12.0-16.0); Mean Corpuscular HGB Conc 34.2 g/dl (31.0-35.0); Mean Corpuscular Hemoglobin 34.6 pg (27.0-33.0); Mean Corpuscular Volume 101.1 fL (80.0-98.0); NRBC Abs Auto 0.000 X10*3/uL (0.0-0.012); NRBC Pct Auto 0.0 /100WBC (0.0-0.2); Platelet Count 189 X10*3/uL (160-400); Red Blood Count 2.66 X10*6/uL (4.20-5.50); White Blood Count 7.4 X10*3/uL (4.8-10.8)
[2025-09-09 08:00] VITALS: BP 121/56; PULSE 98; RESP 20; TEMP 36.1; O2SAT 94
--- NOTE | 2025-09-09 08:28 | HO.POSTANES ---
Post Anesthesia Evaluation Post Anesthesia Evaluation Date of Service: 09/09/25 Vital Signs: Vital Signs Temp Pulse Resp BP Pulse Ox O2 Del Method 09/09/25 08:00 97.0 F 98 20 121/56 L 94 Room Air 09/09/25 03:33 99.3 F 94 16 105/51 L 94 Room Air 09/08/25 23:08 98.9 F 93 18 114/56 L 95 Room Air Anesthesia: Monitored Mental Status: Awake Pain Control: Satisfactory Nausea/Vomiting: None Hydration: Adequate Anesthesia-Related Issues: No Anes. Related Issues
[2025-09-09] MEDS: 0.9 % Sodium Chloride Flush 3 ML SYRINGE IVFLUSH ×2 (09:13→16:58)
[2025-09-09 09:53] LABS: Albumin Peritoneal Fluid 0.6
--- NOTE | 2025-09-09 10:29 | MHC.CM.PN ---
Per ROUNDS discussion, Patient is not yet medically cleared for dc (pending PT & Addiction Medicine Consults);home is the goal and CM will continue to follow.
[2025-09-09 12:00] VITALS: BP 119/58; PULSE 94; RESP 20; TEMP 37.2; O2SAT 94
--- NOTE | 2025-09-09 12:15 | P.PNNP_ITS ---
Subjective Subjective Date of Service: 09/09/25 Interval history: States she still feels a little bit weak otherwise okay Renal function improving, creatinine down to 1.26 Physical Exam 2 Vital Signs: Vital Signs: Last Vital Signs Temp 98.9 F 09/09/25 12:00 Pulse 94 09/09/25 12:00 Resp 20 09/09/25 12:00 BP 119/58 L 09/09/25 12:00 Pulse Ox 94 09/09/25 12:00 O2 Del Method Room Air 09/09/25 12:00 BMI result Body Mass Index 22.7 General: not in any acute distress, slightly ill appearing Nutritional Appearance: poorly nourished and normal weight Eyes: appearance normal, both eyes and all related structures; Alignment and Position: alignment normal and position normal Neck: No lymphadenopathy, no thyromegaly Resp: bilateral air entry equal, no added sounds present Cardio: Regular rate, regular rhythm; Heart sounds: S1 normal heart sound present and S2 normal heart sound present GI: soft, nontender, no guarding, no hepatosplenomegaly : bladder normal to inspection, bladder normal to palpation, no renal angle tenderness Skin: no rashes or lesions noted and elasticity normal Neuro: alert, oriented x 3, moves all extremities Objective Data Labs 09/09/25 06:59 09/09/25 06:59 Labs: Laboratory Results - last 24 hr 09/06/25 09/09/25 11:50 06:59 WBC 7.4 RBC 2.66 L Hgb 9.2 L Hct 26.9 L MCV 101.1 H MCH 34.6 H MCHC 34.2 RDW 18.4 H Plt Count 189 MPV 11.0 Absolute Nucleated RBC 0.000 Nucleated RBC % (auto) 0.0 Sodium 134 L Potassium 3.4 Chloride 107 Carbon Dioxide 19 L Anion Gap 11 L BUN 27 H Creatinine 1.16 Estim Creat Clear Calc 49.5 Estimated GFR 49 Random Glucose 106 Calcium 8.7 Total Bilirubin 2.3 H AST 156 H ALT 37 H Alkaline Phosphatase 108 Total Protein 6.9 Albumin 3.0 L Peritoneal Tot Protein 1.2 Peritoneal Albumin 0.6 Peritoneal LDH 34 Peritoneal Glucose 95 Peritoneal Amylase 7 Microbiology Microbiology Results: Microbiology 09/06/25 11:50 Paracentesis Fluid Gram Stain - Final 09/06/25 11:50 Paracentesis Fluid Anaerobic Culture - Preliminary No growth to date. 09/06/25 11:50 Paracentesis Fluid Body Fluid Culture - Final No growth after 2 days Procedures Date of Service Date of Service: 09/09/25 Assessment & Plan Assessment and plan (1) AMANDA (acute kidney injury): Status: Acute (2) Alcoholic cirrhosis: Status: Acute Plan Acute kidney injury: Secondary to severe volume depletion in the setting of alcoholic cirrhosis and NSAIDs use Presented with a creatinine around 5, currently down trending and is down to 1.16 this morning Avoid nephrotoxic medications and NSAIDs use. Advised the patient to have adequate amount of fluid and volume intake while avoiding hypervolemia. Low-salt diet. Hypokalemia: Replace as per protocol Nephrology we will sign off, please reconsult if clinical status changes Time Spent With Patient Time: Total time managing care of this patient today ____ minutes. Progress Note: Quality Stroke Does the patient have a stroke diagnosis?: No
[2025-09-09 12:35] LABS: pH Peritoneal Fluid 7.51
--- NOTE | 2025-09-09 13:39 | MHC.RECOVRN ---
Met with pt on 09/07 after receiving an addiction consult to discuss AUD & recovery options and supports. Pt decliend GILLIAN initiation and declined outpatient appoitnemnt for treatment of her AUD. See recovery/ sue for more information.
[2025-09-09 15:57] VITALS: BP 114/61; PULSE 95; RESP 20; TEMP 37.2; O2SAT 95
--- NOTE | 2025-09-09 18:19 | PC.NURSE ---
Pt A&o x4. Mild nausea, mild tremors noted throughout the day. CIWA discontinued per provider. Pt independent to bathroom. Had normal BM today. Urinating normally. Denies pain. Sleeping throughout the day, which SO reports is normal lately.
[2025-09-09 19:57] VITALS: BP 108/55; PULSE 85; RESP 15; TEMP 36.7; O2SAT 95
[2025-09-09] MEDS: oxyCODONE HCl Immed Release 5 MG TABLET PO (21:15)
[2025-09-09 23:27] VITALS: BP 104/57; PULSE 87; RESP 18; TEMP 36.9; O2SAT 94
[2025-09-10 03:14] VITALS: BP 100/55; PULSE 86; RESP 18; TEMP 36.7; O2SAT 95
--- NOTE | 2025-09-10 07:15 | P.PNIM_ITS ---
Subjective Subjective Date of Service: 09/10/25 Physical Exam 2 Vital Signs: Vital Signs: Last Vital Signs Temp 98.1 F 09/10/25 03:14 Pulse 86 09/10/25 03:14 Resp 18 09/10/25 03:14 BP 100/55 L 09/10/25 03:14 Pulse Ox 95 09/10/25 03:14 O2 Del Method Room Air 09/10/25 03:14 BMI result Body Mass Index 22.7 Objective Data Active Medications Acetaminophen (Acetaminophen 325 Mg Tablet) 650 mg PO Q6H PRN PRN Reason: Pain, Mild 1-3,fever,headache Alprazolam (Alprazolam 0.5 Mg Tablet) 1 mg PO TID PRN PRN Reason: Anxiety Last Admin: 09/09/25 23:28 Dose: 1 mg Documented By: STEPHANIE Calcium Carbonate (Calcium Carbonate 750 Mg Tab.Chew) 750 mg PO Q4H PRN PRN Reason: Heartburn Cyclobenzaprine HCl (Cyclobenzaprine Hcl 5 Mg Tablet) 5 mg PO BEDTIME PRN PRN Reason: Muscle Spasm Last Admin: 09/08/25 22:52 Dose: 5 mg Documented By: MAXIME Magnesium Hydroxide (Milk Of Magnesia 30 Ml Oral.Susp) 30 ml PO DAILY PRN PRN Reason: Constipation Melatonin (Melatonin 3 Mg Tablet) 6 mg PO BEDTIME PRN PRN Reason: Insomnia Ondansetron HCl (Ondansetron Hcl 4 Mg/2 Ml Vial) 4 mg IVPUSH Q8H PRN PRN Reason: Nausea and Vomiting Last Admin: 09/09/25 21:16 Dose: 4 mg Documented By: STEPHANIE Oxycodone HCl (Oxycodone Hcl Immed Release 5 Mg Tablet) 5 mg PO Q6H PRN PRN Reason: Pain, Severe (Pain Scale 7-10) Last Admin: 09/09/25 21:15 Dose: 5 mg Documented By: STEPHANIE Pantoprazole Sodium (Pantoprazole Sodium 40 Mg/10 Ml Vial) 40 mg IVPUSH BID@0630,1630 [facility] Last Admin: 09/10/25 06:13 Dose: 40 mg Documented By: STEPHANIE Sertraline HCl (Sertraline Hcl 50 Mg Tablet) 50 mg PO DAILY [facility] Last Admin: 09/09/25 09:13 Dose: 50 mg Documented By: MICKIE Sodium Chloride (0.9 % Sodium Chloride Flush 3 Ml Syringe) 3 ml IVFLUSH QSHIFT [facility] Last Admin: 09/10/25 00:00 Dose: Not Given Documented By: STEPHANIE Non-Admin Reason: Previously Administered Tramadol HCl (Tramadol Hcl 50 Mg Tablet) 50 mg PO Q6H PRN PRN Reason: Pain, Moderate(Pain Scale 4-6) Last Admin: 09/06/25 21:33 Dose: 50 mg Documented By: ELISEO Trazodone HCl (Trazodone Hcl 50 Mg Tablet) 50 mg PO BEDTIME PRN PRN Reason: for insomnia Last Admin: 09/09/25 23:28 Dose: 50 mg Documented By: STEPHANIE Labs 09/09/25 06:59 09/09/25 06:59 Labs: Laboratory Results - last 24 hr 09/06/25 09/09/25 11:50 06:59 MCV 101.1 H MCH 34.6 H MCHC 34.2 RDW 18.4 H Plt Count 189 MPV 11.0 Absolute Nucleated RBC 0.000 Nucleated RBC % (auto) 0.0 Anion Gap 11 L Estim Creat Clear Calc 49.5 Estimated GFR 49 Random Glucose 106 Calcium 8.7 Total Bilirubin 2.3 H AST 156 H ALT 37 H Alkaline Phosphatase 108 Total Protein 6.9 Albumin 3.0 L Peritoneal pH 7.51 Peritoneal Tot Protein 1.2 Peritoneal Albumin 0.6 Peritoneal LDH 34 Peritoneal Glucose 95 Peritoneal Amylase 7 Microbiology Microbiology Results: Microbiology 09/06/25 11:50 Gram Stain - Final Paracentesis Fluid Anaerobic Culture - Preliminary No growth to date. Body Fluid Culture - Final No growth after 2 days Quality Stroke Does the patient have a stroke diagnosis?: No VTE Prior VTE?: No VTE Risk Level:: Medical - moderate - high VTE Device Contraindication: N/A - Device Ordered VTE Drug Contraindication: Treatment Not Indicated
[2025-09-10 07:51] VITALS: BP 97/53; PULSE 83; RESP 20; TEMP 36.8; O2SAT 92
[2025-09-10] MEDS: 0.9 % Sodium Chloride Flush 3 ML SYRINGE IVFLUSH (08:48)
[2025-09-10 11:07] VITALS: BP 112/56; PULSE 88; RESP 18; TEMP 37; O2SAT 96
--- NOTE | 2025-09-10 12:02 | P.DS_ITS ---
DS: Providers Provider Date of Service: 09/10/25 Date of admission: 09/06/25 01:37 Date of discharge: 09/10/25 Primary care physician: Joan Tadeo MD Consults: 09/06/25 01:34 Consult to Nephrology Routine Consulting Provider: [facility] Reason for consultation: new renal failure Has provider been notified: No 09/06/25 01:47 Consult to Gastroenterology Routine Consulting Provider: Anabel Vasques Reason for consultation: cirrhosis management Has provider been notified: No 09/06/25 01:51 Addiction Medicine Provider Routine Consulting Provider: Addiction Covering Reason for consultation: etoh Has provider been notified: No 09/09/25 08:58 Addiction Medicine Provider Routine Consulting Provider: Addiction Covering Reason for consultation: aud DS: Diagnosis Discharge Diagnosis (1) Alcoholic cirrhosis of liver with ascites: Status: Acute (2) Acute renal failure: Status: Acute DS: Summary Hospital Course Hospital Course: Per H&P:Pt is a 49 yo female with a pmhx significant for alcohol use disorder, etoh cirrhosis, tobacco use and anxiety/depression, who presented to the ED due to ascites, elevated cr, and pain and decreased appetite. pt has been drinking 10 nips/day butcut back to 1 drink/day for the past 5 days. last drink was last night. having abd pain, flank pain, bloating and decreased appetite. has had some nausea and vomiting, no hematemesis or coffee ground emesis. she also complains or mild SOB due to abd pressure. no fever, confusion, cough or URI sx. Hospital course: Alcoholic cirrhosis of liver with ascites Cirrhosis with moderate to large volume ascites Pt is a 49 yo female with a pmhx significant for alcohol use disorder ( 10 nips/day (started drinking at age 11 yrs) and cut back to 1 drink/day for the past 5 days) , etoh cirrhosis, tobacco use and anxiety/depression, who presented to the ED due to ascites, elevated cr, and pain and decreased appetite. Patient reports progressive abdominal distention and diarrhea for the past 2 weeks with multiple small bowel movements daily. Pt reports abd pain, flank pain, bloating and decreased appetite, nausea and vomiting, Pt denied hematemesis or coffee ground emesis. she also complains or mild SOB due to abd pressure. Patient underwent abdominal tap of 5.1 L ascitic fluid which was negative for SBP, hence was briefly given ceftriaxone on admission and was stopped. GI was consulted- likely we will need frequent taps in outpatient settings. MELD 3.0 score is 30 (likely driven by elevated Cr). Was monitored. Acute renal failure likely prerenal in the setting of hepatorenal syndrome acute renal failure likely in the setting of hepatorenal syndrome due to alcohol use disorder &NSAID nephropathy. Imaging without any obstruction. Nephrology consulted-likely hypoperfusion, patient strictly advised low-sodium diet, compliance is an issue. Acute on chronic blood loss anemia secondary to Esophageal varices, portal hypertensive gastropathy, multiple gastric and duodenal ulcers Endoscopy Findings: ESOPHAGUS: Grade 3-4 two column non-bleeding esophageal varices from 30-35 cm with a red amelia signs. Band ligation was performed and two rubber bands were placed with flattening of the varices. STOMACH: Portal hypertensive gastropathy, multiple nonbleeding antral ulcers DUODENUM: Multiple 8 to 12 mm non-bleeding ulcers in the apex of the bulb ,Peptic ulcer disease likely related to use of NSAIDs. Patient is being prescribed pantoprazole p.o. b.i.d. Patient is set up with GI outpatient Patient advised to refrain from using any NSAIDs Patient advised to refrain from alcohol Patient need to follow up with GI for outpatient EGD in 3-4 months for resolution of esophageal varices and resolution of gastric and duodenal ulcers. alcohol use disorder with multiple rehab admissions with multiple relapses Tobacco use disorder Marijuana use disorder Pt admits to drinking 10 nips/day (started drinking at age 11 yrs) and cut back to 1 drink/day for the past 5 days - last drink was last night. BAL was negative at the time of admission, and was scoring low on CIWA and it was discontinued. Patient was not placed on any replacement therapy She has been through rehab multiple times and remained sober for 1-2 weeks. She smokes 1/2 PPD x 30 years and takes marijuana gummies occasionally smoking cessation advised extensively Addiction med consulted, however patient deferred any treatment at this time. Patient reports she has tried all treatments and did not work for her. She has materials to seek care if needed Hyponatremia likely secondary to hepatorenal syndrome. Macrocytic anemia - folate low; B12 high, iron WNL - likely in the setting of alcohol use disorder full code VTE prophy: SCDs while in pt Patient was seen by PT and was deemed to to return home safe with outpatient PT services. Patient's at the bedside is also in agreement with the above plan. Patient is at high-risk of readmission and decompensated liver cirrhosis Time spent discussing smoking cessation with patient: more than 10 minutes Status at Discharge Functional status at discharge: independent ambulation Overall status at discharge: patient is progressing back to baseline Time Attestation Discharge Coordination Time (in mins): 45 Quality: Safe Use of Opioids Does Pt have an Active Cancer Diagnosis on the Problem List?: No Quality: Stroke Does the patient have a stroke diagnosis?: No Physical Exam Vital Signs: Vital Signs: Last Vital Signs Temp 98.6 F 09/10/25 11:07 Pulse 88 09/10/25 11:07 Resp 18 09/10/25 11:07 BP 112/56 L 09/10/25 11:07 Pulse Ox 96 09/10/25 11:07 O2 Del Method Room Air 09/10/25 11:07 BMI result Body Mass Index 22.7 DS: Data Data Completed and Pending Completed studies during hospitalization [Text1]: Procedures Detoxification Services for Substance Abuse Treatment (02/03/24) Pending studies at discharge: Pending at discharge 09/08/25 16:46 Surgical [PTH] Routine Labs on day of discharge: Laboratory Results - last 24 hr 09/06/25 11:50 Peritoneal pH 7.51 Preliminary micro results at discharge 09/06/25 11:50 Anaerobic Culture - Preliminary Paracentesis Fluid No growth to date. Discharge Plan Discharge Anticipated Discharge Date/Time: 09/10/25 11:58 Patient Disposition: Home, Self-Care Discharge Diagnosis: Alcoholic liver cirrhosis , Hepatic cirrhosis Referrals: Shabnam David MD [Physician, Gastroenterology] - 1 Week Joan Torres MD [Primary Care Provider, Internal Medicine] - 1 Week Discharge Medications: New pantoprazole 40 mg tablet,delayed release (DR/EC) 40 mg PO BID Qty: 20 0RF Continued trazodone 50 mg tablet 50 mg PO BEDTIME PRN (Reason: for insomnia) 90 Days Qty: 90 1RF sertraline 50 mg tablet 50 mg PO DAILY 90 Days Qty: 90 1RF alprazolam 1 mg tablet 1 mg PO TID PRN (Reason: anxiety) Qty: 86 0RF cyclobenzaprine 5 mg tablet 5 mg PO BEDTIME PRN (Reason: muscle spasm) Qty: 20 0RF folic acid 1 mg tablet 1 mg PO DAILY Qty: 30 0RF thiamine HCl (vitamin B1) [Vitamin B-1] 100 mg tablet 100 mg PO DAILY Qty: 30 3RF Discharge Orders: Discharge Order (Routine); Ordered 09/10/25 Ordered By: Jeannette López Diet: Low salt diet Activity on Discharge: As tolerated Stand Alone Forms: Patient Portal Discharge page Print Language: Albanian Care Plan Goals: Please refrain from alcohol Advised the patient to reach out for resources if she is agreeable Patient to get outpatient PT services by PCP Patient to visit PCP outpatient within a week Patient to establish with GI as she will likely need recurrent abdominal ascites tap decompensated liver cirrhosis You need to repeat EGD in 3-[address] Hinojosa. Call the office to reschedule it sooner Health Concerns: See above Plan of Treatment: See above Assessment: See above
--- NOTE | 2025-09-10 12:13 | MHC.CM.PN ---
CM met with Patient at bedside and addressed IMM with her; original was given to Patient and a copy has been placed on the chart. Patient has been medically cleared for dc to home today, self care. A LYFT has been set up for 1:30 picker packer today. RN & MD are aware.
== END 2025-09-10 13:10 | disposition home or self-care (01) | DRG 432 ==
LOC: HO.ED 22:25 → HO.EDOVER 09-06 01:57 → HO.IMC 09-06 02:40
PROVIDERS: Internal Medicine Gastroenterology; Physician Assistant Medical; Student in an Organized Health Care Education/Training Program; Admitting Provider Physician Assistant; Emergency Provider Emergency Medicine; PCP Internal Medicine; Visit Provider Student in an Organized Health Care Education/Training Program
PROC: 0DJ08ZZ Inspection of Upper Intestinal Tract, Via Natural or Artificial Opening Endoscopic (ICD-10-PCS; CPT 43235; principal; 2025-09-08 13:00)
DX: K70.31 Alcoholic cirrhosis of liver with ascites (principal); I85.11 Secondary esophageal varices with bleeding; K25.4 Chronic or unspecified gastric ulcer with hemorrhage; K26.4 Chronic or unspecified duodenal ulcer with hemorrhage; K76.7 Hepatorenal syndrome; N17.9 Acute kidney failure, unspecified; E87.1 Hypo-osmolality and hyponatremia; D62 Acute posthemorrhagic anemia; K76.6 Portal hypertension; F10.20 Alcohol dependence, uncomplicated; E87.6 Hypokalemia; E86.0 Dehydration; F41.9 Anxiety disorder, unspecified; K31.89 Other diseases of stomach and duodenum; F32.A Depression, unspecified; F17.210 Nicotine dependence, cigarettes, uncomplicated; Z71.6 Tobacco abuse counseling; D53.9 Nutritional anemia, unspecified; Z79.899 Other long term (current) drug therapy
CPT/HCPCS: 36415; 49083; 74176; 76705; 80053; 80307; 81003; 82042; 82150; 82248; 82570; 82607; 82746; 82945; 83540; 83615; 83735; 83986; 84156; 84157; 84300; 84702; 85025; 85027; 85610; 86140; 87070; 87073; 87205; 88305; 88313; 88342; 89051; 97116; 97161; 97165; 99285; J0696; J2003; J2270; J2371; J2405; J2470; J2704; J3480; P9047; S9485

== ENCOUNTER → 2025-09-05 23:16 | Outpatient (BNV) | payer MEDICARE, MEDICAID, SELFPAY | PROVIDERS: Admitting Provider Physician Assistant; Emergency Provider Emergency Medicine; PCP Internal Medicine; Visit Provider Student in an Organized Health Care Education/Training Program | DX: K74.60 Unspecified cirrhosis of liver (principal); R18.8 Other ascites | CPT/HCPCS: 74176 ==

== ENCOUNTER 2025-09-06 01:37 | Outpatient (BNV) | payer MEDICARE, MEDICAID, SELFPAY | END 2025-09-08 08:42 | PROVIDERS: Admitting Provider Physician Assistant; Emergency Provider Emergency Medicine; PCP Internal Medicine; Visit Provider Radiology Diagnostic Radiology | DX: R10.11 Right upper quadrant pain (principal) | CPT/HCPCS: 76705 ==

== ENCOUNTER 2025-09-06 01:37 | Outpatient (BNV) | payer MEDICARE, MEDICAID, SELFPAY | END 2025-09-06 11:10 | PROVIDERS: Admitting Provider Physician Assistant; Emergency Provider Emergency Medicine; PCP Internal Medicine; Visit Provider Radiology Diagnostic Radiology | DX: R18.8 Other ascites (principal) | CPT/HCPCS: 49083 ==

== ENCOUNTER → 2025-09-06 01:37 | Outpatient (BNV) | payer MEDICARE, MEDICAID, SELFPAY | PROVIDERS: Admitting Provider Physician Assistant; Emergency Provider Emergency Medicine; PCP Internal Medicine; Visit Provider Internal Medicine Gastroenterology | DX: K70.31 Alcoholic cirrhosis of liver with ascites (principal); K76.82 Hepatic encephalopathy; N17.9 Acute kidney failure, unspecified | CPT/HCPCS: 99222 ==

== ENCOUNTER → 2025-09-06 01:37 | Outpatient (BNV) | payer MEDICARE, MEDICAID, SELFPAY | PROVIDERS: Admitting Provider Physician Assistant; Emergency Provider Emergency Medicine; PCP Internal Medicine; Visit Provider Student in an Organized Health Care Education/Training Program | DX: K70.31 Alcoholic cirrhosis of liver with ascites (principal); N17.9 Acute kidney failure, unspecified | CPT/HCPCS: 99223; 99233; 99499 ==

== ENCOUNTER → 2025-09-06 01:37 | Outpatient (BNV) | payer MEDICARE, MEDICAID, SELFPAY | PROVIDERS: Admitting Provider Physician Assistant; Emergency Provider Emergency Medicine; PCP Internal Medicine; Visit Provider Internal Medicine Hypertension Specialist | DX: N17.9 Acute kidney failure, unspecified (principal) | CPT/HCPCS: 99223 ==

== ENCOUNTER → 2025-09-06 01:37 | Outpatient (BNV) | payer MEDICARE, MEDICAID, SELFPAY | PROVIDERS: Admitting Provider Physician Assistant; Emergency Provider Emergency Medicine; PCP Internal Medicine; Visit Provider Internal Medicine Critical Care Medicine | DX: N17.9 Acute kidney failure, unspecified (principal); K70.30 Alcoholic cirrhosis of liver without ascites | CPT/HCPCS: 99232 ==

== ENCOUNTER 2025-09-16 12:01 | Day surgery (SDC) | payer MEDICARE, MEDICAID, SELFPAY ==
--- OUTSIDE RECORDS SUMMARY | 2025-09-11 10:14 | XMS_ITS | Encounter Summary ---
Author Organization [facility] Address [address] [place] [id number] Phone Care Team Providers Care Cardiac Rehabilitation Specialist Name Role Phone Joan Torres MD Primary Care Provid er Encounter Details Date Type Department Care Team (Late st Contact Info) Description 06/27/2023 Procedure Pass [facility], Ct Scan - [address] [address] Social History Tobacco Use Types Packs/Day Years [...] 2:05 AM EDT Marcie Jernigan RN * [place] Suicide Severity Rating Scale (Screener/Recent Self-Report) Question [...] on filedocumented in this encounter Care Teams Cardiac Rehabilitation Specialist Relationship Specialty Start Date End Date Joan Torres MD [address] [place] [address] PCP - General Internal Medicine 06/27/23 documented as of this encounter Additional Source Comments The information contained in this document represents components of the legal health record. It is not the complete legal health record.[facility]
--- OUTSIDE RECORDS SUMMARY | 2025-09-11 10:14 | XMS_ITS | Encounter Summary ---
Author Organization [facility] Address [address] [place] [phone] Phone Care Team Providers Care Drivers' Cash Clerk Name Role Phone Joan Torres MD Primary Care Provid er Encounter Details Date Type Department Care Team (Late st Contact Info) Description 06/27/2023 Procedure Pass [facility], Ct Scan - [address] [id number] Social History Tobacco Use Types Packs/Day Years [...] 2:05 AM EDT Marcie Jernigan RN * [place] Suicide Severity Rating Scale (Screener/Recent Self-Report) Question [...] on filedocumented in this encounter Care Teams Drivers' Cash Clerk Relationship Specialty Start Date End Date Joan Torres MD [address] [place] [address] PCP - General Internal Medicine 06/27/23 documented as of this encounter Additional Source Comments The information contained in this document represents components of the legal health record. It is not the complete legal health record.[facility]
--- NOTE | ~2025-09-16 | US_ITS ---
EXAMINATION: US GUIDED PARACENTESIS CLINICAL INFORMATION: Ascites with alcoholic cirrhosis. COMPARISON: Ultrasound-guided paracentesis 09/06/2025. TECHNIQUE: Following explaining ultrasound-guided paracentesis procedure, benefits and risk, a written consent was obtained. Patient was placed supine on ultrasound stretcher and preliminary ultrasound imaging was obtained through the abdomen. An optimal site was selected along the right mid quadrant and area marked. The marked area was cleaned and draped in usual sterile manner. 1% lidocaine was injected puncture site. Through a small skin incision a 5 Ethiopian short Yueh catheter was advanced into the peritoneal space. After observing fluid return, stylet was withdrawn and catheter connected to vacuum via connecting cannula. After obtaining all fluid and observing normal fluid return, catheter was withdrawn and complete hemostasis achieved. Sterile dressing applied post procedure.. Patient was monitored during the procedure nurse and physician. FINDINGS: On preliminary ultrasound imaging there is moderate ascites fluid seen in the abdomen. Approximately 3 L of ascites fluid was removed and none of this sent to lab. US/US paracentesis abd w/image IMPRESSION: Successful ultrasound-guided therapeutic paracentesis performed without immediate complications. Electronically signed by: Humberto Covarrubias MD 09/16/2025 04:06 PM [facility] [place]
[2025-09-16 12:25] VITALS: BMI 22.3
[2025-09-16 12:29] VITALS: BP 133/82; PULSE 102; RESP 18; TEMP 36.7; O2SAT 98
[2025-09-16 14:02] VITALS: BP 109/68; PULSE 93; RESP 16; TEMP 36.2; O2SAT 95
[2025-09-16 14:17] VITALS: BP 110/68; PULSE 95; RESP 16; O2SAT 97
[2025-09-16 14:32] VITALS: BP 103/65; PULSE 93; RESP 16; O2SAT 95
[2025-09-16 14:47] VITALS: BP 104/62; PULSE 90; RESP 20; TEMP 36.2; O2SAT 95
[2025-09-16] MEDS: Lidocaine HCl 1 % MPF 5 ML VIAL SUBCUT (15:39)
== END 2025-09-16 15:00 | disposition home or self-care (01) ==
PROVIDERS: Radiology Diagnostic Radiology; PCP Internal Medicine; Visit Provider Internal Medicine Gastroenterology
DX: K70.31 Alcoholic cirrhosis of liver with ascites (principal); N17.8 Other acute kidney failure; E87.6 Hypokalemia; Z79.1 Long term (current) use of non-steroidal anti-inflammatories (NSAID)
CPT/HCPCS: 49083; J2003

== ENCOUNTER → 2025-09-16 12:33 | Outpatient (BNV) | payer MEDICARE, MEDICAID, SELFPAY | PROVIDERS: PCP Internal Medicine; Visit Provider Radiology Diagnostic Radiology | DX: K70.31 Alcoholic cirrhosis of liver with ascites (principal) | CPT/HCPCS: 49083 ==

== ENCOUNTER 2025-09-23 08:17 | Day surgery (SDC) | payer MEDICARE, MEDICAID, SELFPAY ==
--- NOTE | ~2025-09-23 | US_ITS ---
EXAMINATION: US GUIDED PARACENTESIS CLINICAL INFORMATION: Ascites COMPARISON: Previous exams most recent September 16, 2025 TECHNIQUE: Procedure and risks and benefits including bleeding, infection and low blood pressure were discussed with the patient and informed consent was obtained. The right lower quadrant was prepped and draped in the usual sterile fashion. The skin and soft tissues were anesthetized with 1 percent lidocaine plain. Using a 5 Faroese Yueh catheter, access to the ascitic fluid was obtained. 4.1 L of clear yellow fluid was removed. No diagnostic specimen was sent. FINDINGS: There is a moderate to large amount of ascites. US/US paracentesis abd w/image IMPRESSION: Ultrasound-guided paracentesis. Electronically signed by: Annalisa Draper MD 09/23/2025 02:[address] [facility]
[2025-09-23 08:33] VITALS: BMI 21.2
[2025-09-23 09:07] VITALS: BP 110/72; PULSE 118; RESP 18; TEMP 36.9; O2SAT 99
[2025-09-23 10:30] VITALS: BP 98/62; PULSE 114; RESP 16; TEMP 37.3; O2SAT 97
[2025-09-23] MEDS: Lidocaine HCl 1 % MPF 5 ML VIAL SUBCUT (10:41)
[2025-09-23 11:00] VITALS: BP 100/57; PULSE 115; RESP 16; O2SAT 95
[2025-09-23 11:30] VITALS: BP 95/52; PULSE 112; RESP 14; O2SAT 94
[2025-09-23 12:20] VITALS: BP 95/56; PULSE 112; RESP 18; TEMP 36.4; O2SAT 95
== END 2025-09-23 12:26 | disposition home or self-care (01) ==
PROVIDERS: Radiology Diagnostic Radiology; PCP Internal Medicine; Visit Provider Internal Medicine Gastroenterology
DX: K70.31 Alcoholic cirrhosis of liver with ascites (principal); N17.8 Other acute kidney failure; E86.9 Volume depletion, unspecified; E87.6 Hypokalemia; Z79.1 Long term (current) use of non-steroidal anti-inflammatories (NSAID)
CPT/HCPCS: 49083; J2003

== ENCOUNTER → 2025-09-23 09:30 | Outpatient (BNV) | payer MEDICARE, MEDICAID, SELFPAY | PROVIDERS: PCP Internal Medicine; Visit Provider Radiology Diagnostic Radiology | DX: R18.8 Other ascites (principal) | CPT/HCPCS: 49083 ==

== ENCOUNTER → 2025-09-30 08:23 | Day surgery (SDC) | payer MEDICARE, MEDICAID, SELFPAY ==
[2025-09-30 08:42] VITALS: BP 110/70; PULSE 112; RESP 15; TEMP 36.6; O2SAT 99
[2025-09-30 08:49] VITALS: BMI 20.5
[2025-09-30 10:06] LABS: Alanine Aminotransferase 34 U/L (0-31); Albumin Level 2.5 g/dL (3.5-5.0); Alkaline Phosphatase 182 U/L (39-117); Anion Gap 11 (12-20); Aspartate Amino Transferase 162 U/L (5-31); Blood Urea Nitrogen 14 mg/dL (9-16); Calcium 8.5 mg/dL (8.4-10.2); Carbon Dioxide 20 mmol/L (22-29); Chloride 98 mmol/L (96-108); Creatinine Clr Calc Pharmacy 74.7; Estimated Glomerular Filt Rate > 60; Potassium 4.5 mmol/L (3.3-5.1); Sodium 124 mmol/L (135-145); Total Protein 7.8 g/dL (6.5-8.0)
--- NOTE | 2025-09-30 10:54 | PM.EVENT ---
Event Note Date of Service: 09/30/25 Event Note: Pt scheduled for outpatient para. Informed by short stay RN that pre-op Na is 124. Advised to cancel para for now. Will need to go to ER for evaluation of severe hyponatremia Time Spent With Patient Time: Total time managing care of this patient today ____ minutes.
--- NOTE | 2025-09-30 12:39 | PC.NURSE ---
late entry from 0900--pt feeling very dehydrated, had been drinking a lot of water---hr in 110-113 range. radiologist made aware. labs and ivf ordered. NA came back at 124. radiologist made aware and covering GI MD Dr. Eckert made aware. radiologist was ok to proceed with paracentesis but GI said to hold off and transfer to ER. pt transferred with at bedside. ivf ns at 80 continued on transfer.
== END ==
LOC: HO.SSS 08:23
PROVIDERS: Radiology Diagnostic Radiology; PCP Internal Medicine; Visit Provider Internal Medicine Gastroenterology
DX: K70.31 Alcoholic cirrhosis of liver with ascites (principal); Z53.09 Procedure and treatment not carried out because of other contraindication; E87.1 Hypo-osmolality and hyponatremia; E86.0 Dehydration
CPT/HCPCS: 36415; 80053; J2003

== ENCOUNTER 2025-09-30 11:32 | Inpatient (IN) | payer MEDICARE, MEDICAID, SELFPAY ==
--- NOTE | ~2025-09-30 | US_ITS ---
Ultrasound paracentesis History: Ascites. Risks and benefits and possible complications were discussed with the patient and consent form was signed. A safe pocket of ascitic fluid was identified using ultrasound guidance, and the overlying skin was marked. The abdomen prepped and draped in sterile fashion. 1% lidocaine was used as a local anesthetic. Using ultrasound guidance, a 5 fr catheter was placed into the ascitic pocket. 4.8 liters of yellow fluid was removed passively. The catheter was then removed. A few employee representative images from before and after the examination were obtained. The procedure was performed by Shaun Terry NP and supervised by Chema Quevedo M.D.. US/US paracentesis abd w/image Impression: Ultrasound-guided paracentesis as described above. No immediate complications Electronically signed by: Chema Quevedo MD 10/03/2025 05:05 PM [facility]
[2025-09-30 11:34] VITALS: BP 108/69; PULSE 108; RESP 18; TEMP 36.7; O2SAT 98; BMI 21.6
[2025-09-30 12:27] LABS: Venous Blood Gas Refer to POC result
[2025-09-30 12:27] LABS: VBG HCO3 21 mmol/L (22-26); VBG O2 % Saturation 85.0 %
[2025-09-30 12:40] LABS: INTERNATIONAL NORM RATIO 1.4 (0.9-1.1); Prothrombin Time 17.0 SEC (11.2-13.5)
[2025-09-30 12:42] LABS: Anion Gap 11 (12-20); Blood Urea Nitrogen 13 mg/dL (9-16); Calcium 8.3 mg/dL (8.4-10.2); Carbon Dioxide 20 mmol/L (22-29); Chloride 100 mmol/L (96-108); Creatinine Clr Calc Pharmacy 71.9; Estimated Glomerular Filt Rate > 60; Potassium 4.5 mmol/L (3.3-5.1); Sodium 126 mmol/L (135-145)
[2025-09-30 12:48] LABS: Osmolality, Serum 270 mosm/kg (281-305)
--- NOTE | 2025-09-30 13:29 | ED.GENADULT ---
HPI - General Adult General Chief complaint: Recheck/Abnormal Lab/Rx Stated complaint: Low Sodium Time Seen by Provider: 09/30/25 13:28 Source: patient Mode of arrival: ambulatory Limitations: no limitations History of Present Illness ED Provider: Dr. Freitas [facility] narrative: This is a 50-year-old female history of liver cirrhosis secondary to alcoholic liver disease, hyponatremia, esophageal varices presenting to ER today for evaluation of hyponatremia. Patient was at a clinic for paracentesis where she had lab work performed. Found to have her sodium of 124. She is relatively asymptomatic not complain of any pain. It is complain of some fatigue. No neurological symptoms. Patient stated her last alcohol use was approximately a month ago. Related Data Previous Rx's ?Medication ?Instructions ?Recorded trazodone 50 mg tablet 50 mg PO BEDTIME PRN for insomnia 10/15/24 90 days #90 tabs sertraline 50 mg tablet 50 mg PO DAILY 90 days #90 tabs 01/11/25 folic acid 1 mg tablet 1 mg PO DAILY #30 tabs 03/05/25 thiamine HCl (vitamin B1) 100 mg 100 mg PO DAILY #30 tabs 03/05/25 tablet (Vitamin B-1) cyclobenzaprine 5 mg tablet 5 mg PO BEDTIME PRN muscle spasm 08/30/25 #20 tabs pantoprazole 40 mg tablet,delayed 40 mg PO BID #20 tabs 09/10/25 release alprazolam 1 mg tablet 1 mg PO TID PRN anxiety #86 tabs 09/24/25 Allergies Allergy/AdvReac Type Severity Reaction Status Date / Time No Known Allergies (No Known Allergy Verified 09/30/25 11:36 Allergies*) Review of Systems Review of Systems: Pertinent review of systems as mentioned in HPI. All other system otherwise negative. 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 Mother No problems noted. Family/Other Substance use disorder Maternal Grandmother Ovarian cancer Maternal Aunt Ovarian cancer Social History Social History Household Members: Spouse and Children Housing: House Are you a primary reproductive healthcare assistant to a significant other at home: No Do you presently have visiting nurse or other home services: No Alcohol intake: current Alcohol intake frequency: former alcohol drinker Alcohol type: beer and wine Comment: low fall risk Patient Tobacco Use Status: Current everyday Tobacco user Tobacco use type: Cigarette Cigarette Packs Per Day: 0.5 Cigarettes Per Day: 10.0 Years Smoked: 30 e-Cigarette/Vaping Use: Never Used Second Hand Smoke Exposure: Yes Substance Use Type: Marijuana Advance Directives: No Advance Directives Information Provided: No service: No Current occupational status: unemployed Cognitive needs: No Hearing needs: No Vision needs: No Physical Exam ED Exam Exam: General: Pleasant, no distress, interacting appropriately Head: Normacephalic, atraumatic ENT: oral mucosa dry, neck supple, no tracheal deviation Cardiovascular: regular rate, regular rhythm, no murmurs, rubbing, gallops Respiratory: CTAB, no wheeze, rales, rhonchi Gastrointestinal: Soft, non distended, non tender, non guarding Extremities: No limb pain or swelling, no calf tenderness Neurological: Awake and alert, no facial droop noted, no focal neurological deficit Skin: Warm and dry Psychiatric: Appropriate mood and thoughts Vital Signs: Vital Signs - 24 hr 09/30/25 11:34 09/30/25 14:00 09/30/25 15:48 Temperature 98.1 F 98.1 F 98.2 F Pulse Rate 108 H 111 H 111 H Respiratory Rate 18 16 15 Blood Pressure 108/69 104/65 109/65 Pulse Oximetry 98 96 99 Oxygen Delivery Method Room Air Room Air Room Air 09/30/25 19:19 09/30/25 21:14 Temperature 98.1 F Pulse Rate 105 H 104 H Respiratory Rate 18 Blood Pressure 99/62 110/62 Pulse Oximetry 95 99 Oxygen Delivery Method Room Air Room Air BMI result Body Mass Index 21.6 Medications Administered Discontinued Medications Generic Name Dose Route Start Last Admin Trade Name Freq PRN Reason Stop Dose Admin Folic Acid 1 mg 09/30/25 16:56 09/30/25 17:31 Folic Acid 1 Mg Tablet PO 09/30/25 16:57 1 mg ONCE ONE Administration Sodium Chloride 500 mls @ 500 mls/hr 09/30/25 13:30 09/30/25 17:33 Ns IV 09/30/25 14:29 Infused .Q1H [facility] Infusion Sodium Chloride 1,000 mls @ 999 mls/hr 09/30/25 17:00 09/30/25 19:40 Ns IV 09/30/25 18:00 Infused .Q1H1M [facility] Infusion Thiamine HCl 100 mg 09/30/25 16:56 09/30/25 17:31 Thiamine Hcl 100 Mg Tablet PO 09/30/25 16:57 100 mg ONCE ONE Administration Medical Decision Making Medical Decision Making [facility] Narrative: This is a 50-year-old female history of alcoholic liver cirrhosis hyponatremia and an esophageal varices presenting to ER today for evaluation of hyponatremia. Patient was found to have a sodium level 124. Patient has received a total 1.5 L IV fluid here. Sodium did correct to 127. Patient does appear to be dry on exam. Patient is able to tolerate p.o. food and liquid without any issues. She is tachycardic. This has improved with some IV fluid hydration. No signs of fluid. No sign of abdominal pain. Patient's chemistry shows sodium 127, bicarb 17. At this time I suspect patient is likely dehydrated. This may be hypovolemia hyponatremia or secondary to alcohol use chronically. Patient will be admitted to the hospital for further monitoring her sodium level and replenishment of sodium level. Differential Diagnosis Differential Diagnoses: The differential diagnosis associated with the presentation includes Hyponatremia, liver cirrhosis, electrolyte abnormality, dehydration Lab Data [facility] Lab Attestation statement: I reviewed the patient's lab results. 09/30/25 18:46 Labs: Lab Results 09/30/25 09/30/25 09/30/25 Range/Units 12:19 12:23 18:46 Hold Purple Top SEE NOTE PT 17.0 H (11.2-13.5) SEC INR 1.4 H (0.9-1.1) VBG pH 7.43 (7.32-7.43) VBG pCO2 31 mmHg VBG pO2 65 mmHg VBG HCO3 21 L (22-26) mmol/L VBG O2 Saturation 85.0 % VBG Base Excess -1.8 mmol/L Sodium 126 L 127 L (135-145) mmol/L Potassium 4.5 4.3 (3.3-5.1) mmol/L Chloride 100 105 (96-108) mmol/L Carbon Dioxide 20 L 17 L (22-29) mmol/L Anion Gap 11 L 9 L (12-20) BUN 13 13 (9-16) mg/dL Creatinine 0.79 0.69 (0.5-1.4) mg/dL Estim Creat Clear Calc 71.9 82.3 Estimated GFR > 60 > 60 Random Glucose 108 131 H (60-115) mg/dL Osmolality 270 L (281-305) mosm/kg Calcium 8.3 L 7.6 L D (8.4-10.2) mg/dL Ethyl Alcohol < 10 mg/dL Critical Care Time Critical Care Time Critical Care Time: Yes Total Critical Care Time: 40 Attestation: Time is exclusive of separately billable procedures. Time includes: direct patient care, patient reassessment, coordination of patient care, interpretation of data (laboratory data, pulse oximetry, arterial blood gases and chest xrays), review of patient's medical records, medical consultation and documentation of patient care. Procedures excluded from critical care time: central intravenous line placement and electrocardiography. Discharge Plan Discharge Clinical Impression: Acute hyponatremia, Cirrhosis Patient Disposition: Admitted As Inpatient Print Language: Samoan
[2025-09-30 14:00] VITALS: BP 104/65; PULSE 111; RESP 16; TEMP 36.7; O2SAT 96
--- OUTSIDE RECORDS SUMMARY | 2025-09-30 15:44 | XMS_ITS | Encounter Summary ---
Author Organization [facility] Address [address] [place] [id number] Phone Care Team Providers Care Business Development Recruiter Name Role Phone Joan Torres MD Primary Care Provid er Encounter Details Date Type Department Care Team (Late st Contact Info) Description 06/27/20[address] Procedure Pass [facility], Ct Scan - [address] [address] Social History Tobacco Use Types Packs/Day Years [...] 2:05 AM EDT Marcie Jernigan RN * [place] Suicide Severity Rating Scale (Screener/Recent Self-Report) Question [...] on filedocumented in this encounter Care Teams Business Development Recruiter Relationship Specialty Start Date End Date Joan Torres MD [address] [place] [address] PCP - General Internal Medicine 06/27/23 documented as of this encounter Additional Source Comments The information contained in this document represents components of the legal health record. It is not the complete legal health record.[facility]
--- OUTSIDE RECORDS SUMMARY | 2025-09-30 15:44 | XMS_ITS | Encounter Summary ---
Author Organization [facility] Address [address] [place] [phone] Phone Care Team Providers Care Cytotechnologist Name Role Phone Joan Torres MD Primary Care Provid er Encounter Details Date Type Department Care Team (Late st Contact Info) Description 06/27/2023 Procedure Pass [facility], Ct Scan - [address] [address] Social History Tobacco Use Types Packs/Day Years [...] 2:05 AM EDT Marcie Jernigan RN * [place] Suicide Severity Rating Scale (Screener/Recent Self-Report) Question [...] on filedocumented in this encounter Care Teams Cytotechnologist Relationship Specialty Start Date End Date Joan Torres MD [address] [place] [address] PCP - General Internal Medicine 06/27/23 documented as of this encounter Additional Source Comments The information contained in this document represents components of the legal health record. It is not the complete legal health record.[facility]
--- OUTSIDE RECORDS SUMMARY | 2025-09-30 15:45 | XMS_ITS | Clinical Summary ---
Author Organization [facility] Address [address] [place] [id number] Phone Care Team Providers Care Atg Java Developer Name Role Phone Joan Torres MD Primary [...] topic Medical Devices Not on file Insurance [facility] MEDIC[facility] PART A & B [facility] & [facility] & B [place] [facility]ICARE PART A & B [facility] MEDICARE PART A & B [facility] MEDIC[facility] PART A & B Care Teams Atg Java Developer Relationship Specialty Start Date End Date Joan Torres MD [address] [place] [address] PCP - General Internal Medicine 06/27/23 Additional Source Comments The information contained in this document represents components of the legal health record. It is not the complete legal health record.[facility]
[2025-09-30 15:48] VITALS: BP 109/65; PULSE 111; RESP 15; TEMP 36.8; O2SAT 99
[2025-09-30 19:14] LABS: Anion Gap 9 (12-20); Blood Urea Nitrogen 13 mg/dL (9-16); Calcium 7.6 mg/dL (8.4-10.2); Carbon Dioxide 17 mmol/L (22-29); Chloride 105 mmol/L (96-108); Creatinine Clr Calc Pharmacy 82.3; Estimated Glomerular Filt Rate > 60; Potassium 4.3 mmol/L (3.3-5.1); Sodium 127 mmol/L (135-145)
[2025-09-30 19:19] VITALS: BP 99/62; PULSE 105; O2SAT 95
[2025-09-30 21:14] VITALS: BP 110/62; PULSE 104; RESP 18; TEMP 36.7; O2SAT 99
[2025-09-30] MEDS: Lidocaine HCl Viscous 2 % 15 ML SOLUTION MUCOUS MEM (22:19)
[2025-09-30] MEDS: Magnesium Hydrox/Alum Hydrox 30 ML ORAL.SUSP PO (22:19)
--- NOTE | 2025-09-30 23:58 | P.HPHOSP_ITS ---
History of Present Illness Date of Service: 09/30/25 Chief Complaint: Generalized weakness 50-year-old female with a past medical history of alcoholic liver disease, liver cirrhosis, history of hyponatremia, esophageal varices, anxiety, depression, GERD, peptic ulcer disease; ascites receiving periodic paracentesis; presented to the hospital today with a chief complaint of generalized weakness. Patient reports that she has. Paracentesis done every Tuesday. She went to the hospital for scheduled paracentesis and has had labs done; noted to have sodium level of 124. Patient was asked to go to the ER for further evaluation. Patient reports decreased appetite. Denies any fevers or chills. Reports mild abdominal discomfort secondary to the distention from ascites. Review of all other systems is negative except mentioned above ER course: Per ER team, patient noted abdominal distention consistent with ascites. Sodium levels were 124 initially given 2 L of IV fluids follow up sodium levels improved to 127. 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 Mother No problems noted. Family/Other Substance use disorder Maternal Grandmother Ovarian cancer Maternal Aunt Ovarian cancer Surgical History (Updated 09/30/25 @ 08:25 by Ladonna Weiss RN) History of abdominal paracentesis Hx of endoscopy History of colonoscopy Social History Household Members: Spouse and Children Housing: House Are you a primary careers counsellor to a significant other at home: No Do you presently have visiting nurse or other home services: No Alcohol intake: current Alcohol intake frequency: former alcohol drinker Alcohol type: beer and wine Comment: low fall risk Patient Tobacco Use Status: Current everyday Tobacco user Tobacco use type: Cigarette Cigarette Packs Per Day: 0.5 Cigarettes Per Day: 10.0 Years Smoked: 30 Smoked in Last 30 Days: No e-Cigarette/Vaping Use: Never Used Second Hand Smoke Exposure: Yes Substance Use Type: Marijuana Advance Directives: No Advance Directives Information Provided: No Patient : No service: No Current occupational status: unemployed Cognitive needs: No Hearing needs: No Vision needs: No Meds Allergies Allergy/AdvReac Type Severity Reaction Status Date / Time No Known Allergies (No Known Allergy Verified 09/30/25 11:36 Allergies*) Active Medications: Current Medications Acetaminophen (Acetaminophen 325 Mg Tablet) 650 mg PO Q6H PRN PRN Reason: Pain, Mild 1-3,fever,headache Calcium Carbonate (Calcium Carbonate 750 Mg Tab.Chew) 750 mg PO Q4H PRN PRN Reason: Heartburn Heparin Sodium (Porcine) (Heparin Sodium,Porcine 5,000 Unit/Ml Vial) 5,000 unit SUBCUT Q8H PENDING SALE TO [facility] Last Admin: 09/30/25 22:18 Dose: 5,000 unit Magnesium Hydroxide (Milk Of Magnesia 30 Ml Oral.Susp) 30 ml PO DAILY PRN PRN Reason: Constipation Melatonin (Melatonin 3 Mg Tablet) 6 mg PO BEDTIME PRN PRN Reason: Insomnia Pantoprazole Sodium (Pantoprazole Sodium 40 Mg/10 Ml Vial) 40 mg IVPUSH DAILY@0630 PENDING SALE TO [facility] Sodium Chloride (0.9 % Sodium Chloride Flush 3 Ml Syringe) 3 ml IVFLUSH QSHIFT PENDING SALE TO [facility] Physical Exam 2 Vital Signs and Narrative: Vital Signs: Last Vital Signs Temp 98.1 F 09/30/25 21:14 Pulse 104 H 09/30/25 21:14 Resp 18 09/30/25 21:14 BP 110/62 09/30/25 21:14 Pulse Ox 99 09/30/25 21:14 O2 Del Method Room Air 09/30/25 21:14 BMI result Body Mass Index 21.6 Gen: Appears be in no acute distress HEENT: NCAT, Moist mucosa. Pulmonary: Vesicular breath sounds, fair air entry CVS: Normal S1-S2 Abdomen: BS+, Soft, distended. Extremities: Warm well perfused Neuro: Alert and awake. Results Labs 10/01/25 03:51 09/30/25 18:46 Labs: Laboratory Results - last 24 hr 09/30/25 09/30/25 09/30/25 12:19 12:23 18:46 Hold Purple Top SEE NOTE PT 17.0 H INR 1.4 H VBG pH 7.43 VBG pCO2 31 VBG pO2 65 VBG HCO3 21 L VBG O2 Saturation 85.0 VBG Base Excess -1.8 Anion Gap 11 L 9 L Estim Creat Clear Calc 71.9 82.3 Estimated GFR > 60 > 60 Random Glucose 108 131 H Osmolality 270 L Calcium 8.3 L 7.6 L D Urine Osmolality Ur Random Sodium Urine Creatinine Ethyl Alcohol < 10 09/30/25 21:58 Hold Purple Top PT INR VBG pH VBG pCO2 VBG pO2 VBG HCO3 VBG O2 Saturation VBG Base Excess Anion Gap Estim Creat Clear Calc Estimated GFR Random Glucose Osmolality Calcium Urine Osmolality 363 L Ur Random Sodium < 20.0 Urine Creatinine 154.49 Ethyl Alcohol Assessment and Plan (1) Abdominal ascites: Qualifiers: Ascites type: due to alcoholic cirrhosis Qualified Code(s): K70.31 - Alcoholic cirrhosis of liver with ascites; K72.90 - Hepatic failure, unspecified without coma Status: Acute Plan 50-year-old female with a past medical history of alcoholic liver disease, liver cirrhosis, history of hyponatremia, esophageal varices, anxiety, depression, GERD, peptic ulcer disease; ascites receiving periodic paracentesis; presented to the hospital today with a chief complaint of generalized weakness. Noted to have hyponatremia. Hyponatremia: Patient's sodium levels initially were 124. Follow up sodium levels up to 2 L of IV fluids improved to 127. Will continue to monitor Repeat BMP Fluid restriction Nephrology consult for further input Liver cirrhosis/ascites: Patient due for paracentesis on Tuesday-has not done. Will defer to the day team to follow up with IR in a.m. to schedule for therapeutic paracentesis. Urine retention: Patient has difficulty urinating. RN has difficult time placing the Liriano catheter. Bladder scan showed greater than 700 cc of urine. Urology consult. DVT prophylaxis: Subcu heparin Code status: Full code Quality Stroke Does the patient have a stroke diagnosis?: No VTE Prior VTE?: No VTE Risk Level:: Medical - moderate - high VTE Device Contraindication: Treatment Not Indicated VTE Drug Contraindication: N/A - Med Ordered
[2025-10-01 00:19] VITALS: BP 109/60; PULSE 103; RESP 16; TEMP 37.1; O2SAT 99
[2025-10-01 04:07] LABS: Hematocrit 29.2 % (37.0-47.0); Hemoglobin 10.2 g/dl (12.0-16.0); Imm Gran Abs Auto 0.03 X10*3/uL (0.00-0.03); Imm Gran Pct Auto 0.3 % (0.0-0.4); Lymphocytes Absolute Auto 2.5 X10*3/uL (1.2-4.9); MANUAL DIFF FLAG NO; Mean Corpuscular HGB Conc 34.9 g/dl (31.0-35.0); Mean Corpuscular Hemoglobin 34.7 pg (27.0-33.0); Mean Corpuscular Volume 99.3 fL (80.0-98.0); NRBC Abs Auto 0.000 X10*3/uL (0.0-0.012); NRBC Pct Auto 0.0 /100WBC (0.0-0.2); Platelet Count 189 X10*3/uL (160-400); Red Blood Count 2.94 X10*6/uL (4.20-5.50); White Blood Count 9.7 X10*3/uL (4.8-10.8)
[2025-10-01 04:20] VITALS: BP 125/77; PULSE 101; RESP 26; TEMP 36.7; O2SAT 97
[2025-10-01 04:47] LABS: Alanine Aminotransferase 36 U/L (0-31); Albumin Level 2.6 g/dL (3.5-5.0); Alkaline Phosphatase 166 U/L (39-117); Anion Gap 10 (12-20); Aspartate Amino Transferase 148 U/L (5-31); Blood Urea Nitrogen 13 mg/dL (9-16); Calcium 8.3 mg/dL (8.4-10.2); Carbon Dioxide 18 mmol/L (22-29); Chloride 103 mmol/L (96-108); Creatinine Clr Calc Pharmacy 66.8; Estimated Glomerular Filt Rate > 60; Potassium 4.1 mmol/L (3.3-5.1); Sodium 127 mmol/L (135-145); Total Protein 7.7 g/dL (6.5-8.0)
--- NOTE | 2025-10-01 06:17 | HO.NURTONUR ---
50-year-old female history of liver cirrhosis secondary to alcoholic liver disease, hyponatremia, esophageal varices presenting to ER today for evaluation of hyponatremia. Patient was at a clinic for paracentesis where she had lab work performed. Found to have her sodium of 124, pt is aaox4, nad, VSS, 20g it in the right forearm
[2025-10-01] MEDS: 0.9 % Sodium Chloride Flush 3 ML SYRINGE IVFLUSH ×2 (07:34→20:36)
[2025-10-01 07:37] VITALS: BP 117/75; PULSE 102; RESP 18; O2SAT 97
--- NOTE | 2025-10-01 09:30 | PHA.MEDREC ---
Addendum entered by Shelby Najera RPh 10/01/25 09:59: Reviewed by [facility] Original Note: Pharmacy Consult ? Medication Reconciliation Pharmacy has completed the medication reconciliation. Spoke with pt and she confirmed her medications.
--- NOTE | 2025-10-01 11:12 | MHC.CM.PN ---
CM met with Patient and addressed IMM with her. 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 Home/self care is Patient's goal and CM has initiated and will follow for dc planning. PCP is Dr. Joan Tadeo and Patient may need assist with transport at dc.
[2025-10-01 11:36] VITALS: BP 121/75; PULSE 100; RESP 20; TEMP 37.1; O2SAT 98
--- NOTE | 2025-10-01 15:57 | PM.CNNEP ---
History of Present Illness Reason for Consult Consult date: 10/01/25 Chief Complaint Chief complaint: hyponatremia History of Present Illness Narrative: 50-year-old lady with past medical history of chronic alcohol-related liver cirrhosis, portal hypertension, significant ascites needing recurrent paracentesis every Tuesday he is admitted to the hospital after noting to have her sodium dropped to 124. Nephrology is consulted for the management of hyponatremia. Her last alcohol intake was more than a month ago Her appetite has decreased significantly, it is only a portion of her meal that she and her boyfriend shares the meal in the plate. Review of Systems Review of Systems Const : + body aches, no chills, no excessive sweating and + fatigue Eyes: no blurry vision and no change in vision ENT: no bleeding gums and no change in voice, no dizziness Card: no chest pain, no shortness of breath, no orthopnea, no PND Resp: no cough, no excessive phlegm production, no SOB GI: no abdominal pain and no nausea, no vomiting : no hematuria, no urinary frequency and no difficulty voiding Musc: no abnormal gait, no bone pain Neuro: no abnormal movements, no weakness, no dizziness, no abnormal gait and no behavioral changes Psych: no behavioral changes and no change in appetite Endo: no change in body appearance, no cold intolerance PMFSH Past Medical History Medical History (Updated 10/01/25 @ 00:00 by Max Cavazos MD) Menopause Alcohol intoxication 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 Mother No problems noted. Family/Other Substance use disorder Maternal Grandmother Ovarian cancer Maternal Aunt Ovarian cancer Surgical History Surgical History (Updated 09/30/25 @ 08:25 by Ladonna Weiss RN) History of abdominal paracentesis Hx of endoscopy History of colonoscopy Social History Social History Household Members: Spouse and Children Housing: House Are you a primary care mgr to a significant other at home: No Do you presently have visiting nurse or other home services: No Alcohol intake: current Alcohol intake frequency: former alcohol drinker Alcohol type: beer and wine Comment: low fall risk Patient Tobacco Use Status: Current everyday Tobacco user Tobacco use type: Cigarette Cigarette Packs Per Day: 0.5 Cigarettes Per Day: 10.0 Years Smoked: 30 Smoked in Last 30 Days: No e-Cigarette/Vaping Use: Never Used Second Hand Smoke Exposure: Yes Substance Use Type: Marijuana Have you been hit, kicked, punched, or otherwise hurt by someone within the past year? If so, by whom?: No Do you feel safe in your current relationship?: Yes Is there a partner from a previous relationship who is making you feel unsafe now?: No Are you made to feel afraid or neglected: No Advance Directives: No Advance Directives Information Provided: No Do you have a plan to hurt others: No Plan Recently lost weight without trying: Yes How much weight loss: Unsure Nutrition Risks: No Nutritional Risk Patient : No : No Poor oral hygiene: No service: No Current occupational status: unemployed Cognitive needs: No Hearing needs: No Vision needs: No Meds Allergies Allergy/AdvReac Type Severity Reaction Status Date / Time No Known Allergies (No Known Allergy Verified 09/30/25 11:36 Allergies*) Active Medications: Current Medications Acetaminophen (Acetaminophen 325 Mg Tablet) 650 mg PO Q6H PRN PRN Reason: Pain, Mild 1-3,fever,headache Calcium Carbonate (Calcium Carbonate 750 Mg Tab.Chew) 750 mg PO Q4H PRN PRN Reason: Heartburn Heparin Sodium (Porcine) (Heparin Sodium,Porcine 5,000 Unit/Ml Vial) 5,000 unit SUBCUT Q8H [facility] Last Admin: 10/01/25 13:29 Dose: Not Given Magnesium Hydroxide (Milk Of Magnesia 30 Ml Oral.Susp) 30 ml PO DAILY PRN PRN Reason: Constipation Melatonin (Melatonin 3 Mg Tablet) 6 mg PO BEDTIME PRN PRN Reason: Insomnia Pantoprazole Sodium (Pantoprazole Sodium 40 Mg/10 Ml Vial) 40 mg IVPUSH DAILY@0630 [facility] Last Admin: 10/01/25 07:34 Dose: 40 mg Sodium Chloride (0.9 % Sodium Chloride Flush 3 Ml Syringe) 3 ml IVFLUSH QSHIFT [facility] Last Admin: 10/01/25 11:54 Dose: Not Given Home Medications ?Medication ?Instructions ?Recorded ?Confirmed ?Last Taken ?Type pantoprazole 40 mg tablet,delayed 40 mg PO BID@0630,1630 10/01/25 10/01/25 09/29/25 History release Physical Exam Vital Signs: Last Vital Signs Temp 98.7 F 10/01/25 11:36 Pulse 100 10/01/25 11:36 Resp 20 10/01/25 11:36 BP 121/75 10/01/25 11:36 Pulse Ox 98 10/01/25 11:36 O2 Del Method Room Air 10/01/25 11:36 O2 Flow Rate 4 10/01/25 00:19 BMI result Body Mass Index 21.6 General: not in any acute distress, ill appearing Nutritional Appearance: well nourished and overweight Eyes: appearance normal, both eyes and all related structures; Alignment and Position: alignment normal and position normal Neck: No lymphadenopathy, no thyromegaly Resp: bilateral air entry equal, no added sounds present Cardio: Regular rate, regular rhythm; Heart sounds: S1 normal heart sound present and S2 normal heart sound present GI: soft, nontender, no guarding, no hepatosplenomegaly : bladder normal to inspection, bladder normal to palpation, no renal angle tenderness Skin: no rashes or lesions noted and elasticity normal Neuro: alert, oriented x 3, moves all extremities Results Lab Results 10/01/25 03:51 10/01/25 03:51 Lab results: Chemistry 09/30/25 09/30/25 10/01/25 12:19 18:46 03:51 Sodium 126 L 127 L 127 L Potassium 4.5 4.3 4.1 Carbon Dioxide 20 L 17 L 18 L BUN 13 13 13 Creatinine 0.79 0.69 0.85 Calcium 8.3 L 7.6 L D 8.3 L D Hematology 10/01/25 03:51 WBC 9.7 Hgb 10.2 L Plt Count 189 Urine Studies 09/30/25 21:58 Urine Osmolality 363 L Urine Creatinine 154.49 Assessment and Plan (1) Acute hyponatremia: Status: Acute (2) Alcoholic cirrhosis of liver with ascites: Status: Acute Plan Acute hyponatremia: Cirrhosis of liver: Patient is hyponatremia secondary to poor perfusion of the kidney secondary to cirrhotic physiology along with poor oral intake. Would avoid salt loading because it would lead to further water retention and worsen or ascites We will give her one dose of Lasix today, if the sodium is better than 127 can be discharged tomorrow with oral lasix Patient's last alcohol intake was more than a month ago, needs frequent paracentesis every Tuesday. Procedures Date of Service Date of Service: 10/01/25
[2025-10-01 16:00] VITALS: BP 116/56; PULSE 100; RESP 18; TEMP 36.6; O2SAT 97
[2025-10-01] MEDS: Lidocaine HCl 1 % MPF 5 ML VIAL SUBCUT (16:07)
[2025-10-01] MEDS: Furosemide 40 MG/4 ML VIAL IVPUSH (17:38)
[2025-10-01 19:56] VITALS: BP 108/64; PULSE 108; RESP 20; TEMP 36.9; O2SAT 94
--- NOTE | 2025-10-01 20:18 | HO.PM.IMPN ---
Subjective Subjective Date of Service: 10/01/25 Interval History: hypoNa improving US paracentesis tap today by IR Review of Systems Review of Systems: Yes all other systems are reviewed and are negative Physical Exam Exam: Exam: General: AOx3, no acute distress Resp: CTA bilaterally CVS: S1, S2, RRR GI: +BS, NT, soft, mildly distentied Patient does not appear to have good insight about her acute on chronic medical conditions Vital Signs: Vital Signs: Last Vital Signs Temp 98.4 F 10/01/25 19:56 Pulse 108 H 10/01/25 19:56 Resp 20 10/01/25 19:56 BP 108/64 10/01/25 19:56 Pulse Ox 94 10/01/25 19:56 O2 Del Method Room Air 10/01/25 19:56 O2 Flow Rate 4 10/01/25 00:19 BMI result Body Mass Index 21.6 Objective Data Active Medications Acetaminophen (Acetaminophen 325 Mg Tablet) 650 mg PO Q6H PRN PRN Reason: Pain, Mild 1-3,fever,headache Calcium Carbonate (Calcium Carbonate 750 Mg Tab.Chew) 750 mg PO Q4H PRN PRN Reason: Heartburn Heparin Sodium (Porcine) (Heparin Sodium,Porcine 5,000 Unit/Ml Vial) 5,000 unit SUBCUT Q8H [facility] Last Admin: 10/01/25 13:29 Dose: Not Given Documented By: LY Non-Admin Reason: Patient Refused Magnesium Hydroxide (Milk Of Magnesia 30 Ml Oral.Susp) 30 ml PO DAILY PRN PRN Reason: Constipation Melatonin (Melatonin 3 Mg Tablet) 6 mg PO BEDTIME PRN PRN Reason: Insomnia Pantoprazole Sodium (Pantoprazole Sodium 40 Mg/10 Ml Vial) 40 mg IVPUSH DAILY@0630 [facility] Last Admin: 10/01/25 07:34 Dose: 40 mg Documented By: SHANTELLE Sodium Chloride (0.9 % Sodium Chloride Flush 3 Ml Syringe) 3 ml IVFLUSH QSHIFT [facility] Last Admin: 10/01/25 11:54 Dose: Not Given Documented By: LY Non-Admin Reason: Previously Administered Labs 10/01/25 03:51 10/01/25 03:51 Labs: Laboratory Results - last 24 hr 09/30/25 10/01/25 21:58 03:51 MCV 99.3 H MCH 34.7 H MCHC 34.9 RDW 14.1 Plt Count 189 MPV 11.3 Immature Gran % (Auto) 0.3 Neut % (Auto) 59.8 Lymph % (Auto) 25.7 [place] % (Auto) 12.7 H Eos % (Auto) 0.8 Baso % (Auto) 0.7 Lymph # (Auto) 2.5 [place] # (Auto) 1.2 Eos # (Auto) 0.1 Baso # (Auto) 0.1 Abs Immat Gran (auto) 0.03 Absolute Neuts (auto) 5.8 Absolute Nucleated RBC 0.000 Nucleated RBC % (auto) 0.0 Anion Gap 10 L Estim Creat Clear Calc 66.8 Estimated GFR > 60 Random Glucose 122 H Calcium 8.3 L D Total Bilirubin 2.8 H AST 148 H ALT 36 H Alkaline Phosphatase 166 H Total Protein 7.7 Albumin 2.6 L Urine Osmolality 363 L Ur Random Sodium < 20.0 Urine Creatinine 154.49 Assessment and Plan (1) Acute hyponatremia: Status: Acute Assessment and Plan: 50 yo female with a pmhx significant for AUD ( 10 nips/day (started drinking at age 11 yrs) , etoh cirrhosis, tobacco use and anxiety/depression, who presented to the ED from GI office as she was hal for Qmonday weekly paracentesis and was noted to have acute hypoNa and sent to ED. #HypoNa Likely 2/2 alc hepatic decompensated liver cirrhosis HRS Limit dietary na 2Gm, 2L /daily fluid restriction #Addominal ascitis #decompensated liver cirrhosis # known gastric varices Will request IR guided tap today as she wasnt able to get tap yesterday Please send the fluid for SBP analysis LFts , INR, CMP daily #Prior AUD Denies current etoh use Will check Tox and alc screen CIWA score #GERD- cont home meds #Tobacco use-nicotine replacement .dvt - heparin #PT eval prior to DC This note is constructed using voice recognition software. While every effort has been made to ensure accuracy, fiber optic assembler errors may have been included. Quality Stroke Does the patient have a stroke diagnosis?: No VTE Prior VTE?: No VTE Risk Level:: Medical - moderate - high VTE Device Contraindication: Treatment Not Indicated VTE Drug Contraindication: N/A - Med Ordered
[2025-10-01 20:46] LABS: Magnesium 2.0 mg/dL (1.6-2.6)
[2025-10-02] VITALS (7 sets, daily range): BP systolic 95–127; BP diastolic 52–71; PULSE 103–117; RESP 18–20; TEMP 36.6–37.5; O2SAT 92–99
--- NOTE | 2025-10-02 07:18 | P.PNIM_ITS ---
Subjective Subjective Date of Service: 10/02/25 Interval History: Patient continues to be hyponatremic Tolerating p.o. intake We will continue to monitor abdomen for necessity to tap again All the concern for SBP is low, we do not have any sample to send ascitic tap done yesterday-4.8 Lserous fluid Review of Systems Review of Systems: Yes all other systems are reviewed and are negative Physical Exam 2 Exam: Exam: General: AOx3, no acute distress Resp: CTA bilaterally CVS: S1, S2, RRR GI: +BS, NT, soft, mildly distentied Patient does not appear to have good insight about her acute on chronic medical conditions Vital Signs: Vital Signs: Last Vital Signs Temp 98.3 F 10/02/25 04:00 Pulse 108 H 10/02/25 04:00 Resp 20 10/02/25 04:00 BP 96/53 L 10/02/25 04:00 Pulse Ox 95 10/02/25 04:00 O2 Del Method Room Air 10/02/25 04:00 O2 Flow Rate 4 10/01/25 00:19 BMI result Body Mass Index 21.6 Objective Data Active Medications Acetaminophen (Acetaminophen 325 Mg Tablet) 650 mg PO Q6H PRN PRN Reason: Pain, Mild 1-3,fever,headache Alprazolam (Alprazolam 0.5 Mg Tablet) 1 mg PO TID PRN PRN Reason: Anxiety Calcium Carbonate (Calcium Carbonate 750 Mg Tab.Chew) 750 mg PO Q4H PRN PRN Reason: Heartburn Cyclobenzaprine HCl (Cyclobenzaprine Hcl 5 Mg Tablet) 5 mg PO BEDTIME PRN PRN Reason: Muscle Spasm Heparin Sodium (Porcine) (Heparin Sodium,Porcine 5,000 Unit/Ml Vial) 5,000 unit SUBCUT Q8H [facility] Last Admin: 10/02/25 05:36 Dose: 5,000 unit Documented By: JORGE Magnesium Hydroxide (Milk Of Magnesia 30 Ml Oral.Susp) 30 ml PO DAILY PRN PRN Reason: Constipation Melatonin (Melatonin 3 Mg Tablet) 6 mg PO BEDTIME PRN PRN Reason: Insomnia Nicotine (Nicotine 21 Mg Patch.Td24) 21 mg TRANSDERMA DAILY [facility] Nicotine Polacrilex (Nicotine Polacrilex Lozenge 2 Mg Lozenge) 2 mg BUCCAL Q2H PRN PRN Reason: Nicotine Cravings Omeprazole (Omeprazole 20 Mg Capsule.) 20 mg PO BID@0630,1630 [facility] Last Admin: 10/02/25 05:36 Dose: 20 mg Documented By: JORGE Sodium Chloride (0.9 % Sodium Chloride Flush 3 Ml Syringe) 3 ml IVFLUSH QSHIFT [facility] Last Admin: 10/01/25 20:36 Dose: 3 ml Documented By: JORGE Trazodone HCl (Trazodone Hcl 50 Mg Tablet) 50 mg PO BEDTIME PRN PRN Reason: for insomnia Labs 10/02/25 06:24 10/02/25 06:24 Labs: Laboratory Results - last 24 hr 10/01/25 03:51 Magnesium 2.0 Assessment and Plan (1) Acute hyponatremia: Status: Acute Assessment and Plan: 50 yo female with a pmhx significant for AUD ( 10 nips/day (started drinking at age 11 yrs) , etoh cirrhosis, tobacco use and anxiety/depression, who presented to the ED from GI office as she was formerly [facility] for Qmonday weekly paracentesis and was noted to have acute hypoNa and sent to ED. #HypoNa Continues to wax and wane-goal is 132-135 today in 24 hours Likely 2/2 alc hepatic decompensated liver cirrhosis HRS Limit dietary na 2Gm, 2L /daily fluid restriction #Addominal ascitis #decompensated liver cirrhosis # known gastric varices Underwent 4.8 L ascitic tap without cultures yesterday in IR We will continue to monitor and see if she needs another tap soon LFts , INR, CMP daily #Prior AUD Denies current etoh use Will check Tox and alc screen CIWA score #GERD- cont home meds #Tobacco use-nicotine replacement .dvt - heparin #PT eval patient ambulating at baseline, does not need PT services Disposition-we will continue monitoring Q 6 hours for sodium and likely we will need 1-2 days This note is constructed using voice recognition software. While every effort has been made to ensure accuracy, design inserter errors may have been included. Quality Stroke Does the patient have a stroke diagnosis?: No VTE Prior VTE?: No VTE Risk Level:: Medical - moderate - high VTE Device Contraindication: Treatment Not Indicated VTE Drug Contraindication: N/A - Med Ordered
[2025-10-02 07:21] LABS: Hematocrit 27.1 % (37.0-47.0); Hemoglobin 9.6 g/dl (12.0-16.0); Imm Gran Abs Auto 0.06 X10*3/uL (0.00-0.03); Imm Gran Pct Auto 0.5 % (0.0-0.4); Lymphocytes Absolute Auto 2.4 X10*3/uL (1.2-4.9); MANUAL DIFF FLAG NO; Mean Corpuscular HGB Conc 35.4 g/dl (31.0-35.0); Mean Corpuscular Hemoglobin 34.8 pg (27.0-33.0); Mean Corpuscular Volume 98.2 fL (80.0-98.0); NRBC Abs Auto 0.000 X10*3/uL (0.0-0.012); NRBC Pct Auto 0.0 /100WBC (0.0-0.2); Platelet Count 145 X10*3/uL (160-400); Red Blood Count 2.76 X10*6/uL (4.20-5.50); White Blood Count 11.5 X10*3/uL (4.8-10.8)
[2025-10-02 07:29] LABS: INTERNATIONAL NORM RATIO 1.4 (0.9-1.1); Prothrombin Time 16.9 SEC (11.2-13.5)
[2025-10-02 07:39] LABS: Alanine Aminotransferase 35 U/L (0-31); Albumin Level 2.4 g/dL (3.5-5.0); Alkaline Phosphatase 146 U/L (39-117); Anion Gap 11 (12-20); Aspartate Amino Transferase 150 U/L (5-31); Blood Urea Nitrogen 15 mg/dL (9-16); Calcium 8.3 mg/dL (8.4-10.2); Carbon Dioxide 18 mmol/L (22-29); Chloride 100 mmol/L (96-108); Creatinine Clr Calc Pharmacy 66.0; Estimated Glomerular Filt Rate > 60; Magnesium 1.8 mg/dL (1.6-2.6); Potassium 3.9 mmol/L (3.3-5.1); Sodium 125 mmol/L (135-145); Total Protein 7.3 g/dL (6.5-8.0)
[2025-10-02] MEDS: Nicotine 21 MG PATCH.TD24 TRANSDERMA (08:35)
[2025-10-02] MEDS: 0.9 % Sodium Chloride Flush 3 ML SYRINGE IVFLUSH ×2 (08:43→16:47)
--- NOTE | 2025-10-02 10:29 | MHC.CM.PN ---
Per ROUNDS, Patient is not yet medically cleared for dc (Monitoring Na); home is the goal and CM will continue to follow.
[2025-10-02] MEDS: Furosemide 40 MG/4 ML VIAL IVPUSH ×2 (13:11→17:49)
--- NOTE | 2025-10-02 14:52 | P.PNNP_ITS ---
Subjective Subjective Date of Service: 10/02/25 Interval history: No new complaints, ate pasta with metronidazole as this afternoon Sodium remains at 0125 Physical Exam 2 Vital Signs: Vital Signs: Last Vital Signs Temp 97.8 F 10/02/25 11:44 Pulse 103 H 10/02/25 11:44 Resp 20 10/02/25 11:44 BP 101/62 10/02/25 11:44 Pulse Ox 99 10/02/25 11:44 O2 Del Method Room Air 10/02/25 11:44 O2 Flow Rate 4 10/01/25 00:19 BMI result Body Mass Index 21.6 General: not in any acute distress, ill appearing Nutritional Appearance: Poorly nourished and underweight Eyes: appearance normal, both eyes and all related structures; Alignment and Position: alignment normal and position normal Neck: No lymphadenopathy, no thyromegaly Resp: bilateral air entry equal, no added sounds present Cardio: Regular rate, regular rhythm; Heart sounds: S1 normal heart sound present and S2 normal heart sound present GI: soft, nontender, no guarding, no hepatosplenomegaly : bladder normal to inspection, bladder normal to palpation, no renal angle tenderness Skin: no rashes or lesions noted and elasticity normal Neuro: alert, oriented x 3, moves all extremities Objective Data Labs 10/02/25 06:24 10/02/25 06:24 Labs: Laboratory Results - last 24 hr 10/01/25 10/02/25 03:51 06:24 WBC 11.5 H RBC 2.76 L Hgb 9.6 L Hct 27.1 L MCV 98.2 H MCH 34.8 H MCHC 35.4 H RDW 13.6 Plt Count 145 L MPV 11.5 Immature Gran % (Auto) 0.5 H Neut % (Auto) 66.7 Lymph % (Auto) 20.7 [place] % (Auto) 10.5 Eos % (Auto) 1.0 Baso % (Auto) 0.6 Lymph # (Auto) 2.4 [place] # (Auto) 1.2 Eos # (Auto) 0.1 Baso # (Auto) 0.1 Abs Immat Gran (auto) 0.06 H Absolute Neuts (auto) 7.7 Absolute Nucleated RBC 0.000 Nucleated RBC % (auto) 0.0 PT 16.9 H INR 1.4 H Sodium 125 L Potassium 3.9 Chloride 100 Carbon Dioxide 18 L Anion Gap 11 L BUN 15 Creatinine 0.86 Estim Creat Clear Calc 66.0 Estimated GFR > 60 Random Glucose 101 Calcium 8.3 L Magnesium 2.0 1.8 Total Bilirubin 2.7 H AST 150 H ALT 35 H Alkaline Phosphatase 146 H Total Protein 7.3 Albumin 2.4 L Procedures Date of Service Date of Service: 10/02/25 Assessment & Plan Assessment and plan (1) Hyponatremia with excess extracellular fluid volume: Status: Acute Plan Acute hyponatremia: Cirrhosis of liver: Patient is hyponatremia secondary to poor perfusion of the kidney secondary to cirrhotic physiology along with poor oral intake. Would avoid salt loading because it would lead to further water retention and worsen or ascites We will give her one dose of Lasix today, if the sodium is better than 127 can be discharged tomorrow with oral lasix Patient's last alcohol intake was more than a month ago, needs frequent paracentesis every Tuesday. Time Spent With Patient Time: Total time managing care of this patient today ____ minutes. Progress Note: Quality Stroke Does the patient have a stroke diagnosis?: No
[2025-10-02 15:48] LABS: Cannabinoid Screen Urine Not Detected (Not Detect)
[2025-10-03 03:16] VITALS: BP 94/62; PULSE 105; RESP 18; TEMP 36.3; O2SAT 98
[2025-10-03 05:52] LABS: MANUAL DIFF FLAG NO
[2025-10-03 05:56] LABS: Hematocrit 27.5 % (37.0-47.0); Hemoglobin 9.8 g/dl (12.0-16.0); Imm Gran Abs Auto 0.05 X10*3/uL (0.00-0.03); Imm Gran Pct Auto 0.5 % (0.0-0.4); Lymphocytes Absolute Auto 3.4 X10*3/uL (1.2-4.9); Mean Corpuscular HGB Conc 35.6 g/dl (31.0-35.0); Mean Corpuscular Hemoglobin 34.8 pg (27.0-33.0); Mean Corpuscular Volume 97.5 fL (80.0-98.0); NRBC Abs Auto 0.000 X10*3/uL (0.0-0.012); NRBC Pct Auto 0.0 /100WBC (0.0-0.2); Platelet Count 141 X10*3/uL (160-400); Red Blood Count 2.82 X10*6/uL (4.20-5.50); White Blood Count 9.6 X10*3/uL (4.8-10.8)
[2025-10-03 06:07] LABS: INTERNATIONAL NORM RATIO 1.6 (0.9-1.1); Prothrombin Time 19.0 SEC (11.2-13.5)
[2025-10-03 06:16] LABS: Alanine Aminotransferase 32 U/L (0-31); Albumin Level 2.3 g/dL (3.5-5.0); Alkaline Phosphatase 155 U/L (39-117); Anion Gap 12 (12-20); Aspartate Amino Transferase 145 U/L (5-31); Blood Urea Nitrogen 18 mg/dL (9-16); Calcium 8.1 mg/dL (8.4-10.2); Carbon Dioxide 20 mmol/L (22-29); Chloride 97 mmol/L (96-108); Creatinine Clr Calc Pharmacy 54.6; Estimated Glomerular Filt Rate 56; Magnesium 1.8 mg/dL (1.6-2.6); Potassium 3.0 mmol/L (3.3-5.1); Sodium 126 mmol/L (135-145); Total Protein 7.1 g/dL (6.5-8.0)
[2025-10-03 07:26] VITALS: BP 104/54; PULSE 113; RESP 16; TEMP 36.6; O2SAT 97
--- NOTE | 2025-10-03 07:41 | PM.GICN ---
History of Present Illness Data of Consult Service Date: 10/03/25 Primary Care Provider: Joan Tadeo MD HPI Reason for consult: cirrhosis 50-year-old female with a past medical history of alcoholic liver disease and decompensated liver cirrhosis, hyponatremia, esophageal varices, anxiety, depression, GERD, peptic ulcer disease; who I am seeing for assessment for cirrhosis and hyponatremia. Patient was admitted due to hyponatremia, -na 124. She denies abdominal pain, but has some discomfort from ascites. Denies any fevers or chills. Endorses poor appetite. Since admission she had paracentesis with about 4 L removed. She saw renal team and placed on diuretics due to concern for fluid overload. BP has been in the softer zone. denies nsaids, and last alocohlic drink was about 4-6 weeks ago. Review of Systems Review of Systems: Constitutional : No Weight loss, No Fever, No Chills ENT/Mouth : No sore throat, No Rhinorrhea Eyes: No Swelling, No Redness Cardiovascular : No Chest Pain, No SOB, No Edema Respiratory : No Cough, No Sputum, No Wheezing Gastrointestinal : see HPI Genitourinary : NO Dysuria, No Urinary Frequency, No Hematuria, No Urgency Musculoskeletal : no joint pain, No Myalgias, No Joint Swelling Skin : No Skin Lesions, No rash Neuro : No Weakness, No Numbness, No Dizziness, No Headache Psych : No Anxiety/Panic, No Depression Heme/Lymph: No Bruising, No Lymphadenopathy Endocrine : No Polyuria, No Polydipsia All other systems reviewed and are negative. 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 Mother No problems noted. Family/Other Substance use disorder Maternal Grandmother Ovarian cancer Maternal Aunt Ovarian cancer Surgical History Surgical History (Updated 09/30/25 @ 08:25 by Ladonna Weiss RN) History of abdominal paracentesis Hx of endoscopy History of colonoscopy Social History Social History Household Members: Spouse and Children Housing: House Are you a primary health care administrator to a significant other at home: No Do you presently have visiting nurse or other home services: No Alcohol intake: current Alcohol intake frequency: former alcohol drinker Alcohol type: beer and wine Comment: low fall risk Patient Tobacco Use Status: Current everyday Tobacco user Tobacco use type: Cigarette Cigarette Packs Per Day: 0.5 Cigarettes Per Day: 10.0 Years Smoked: 30 Smoked in Last 30 Days: No e-Cigarette/Vaping Use: Never Used Second Hand Smoke Exposure: Yes Substance Use Type: Marijuana Currently Displaying Signs/Symptoms of Drug Intoxication Withdrawal: No Have you been hit, kicked, punched, or otherwise hurt by someone within the past year? If so, by whom?: No Do you feel safe in your current relationship?: Yes Is there a partner from a previous relationship who is making you feel unsafe now?: No Are you made to feel afraid or neglected: No Advance Directives: No Advance Directives Information Provided: No Do you have a plan to hurt others: No Plan Recently lost weight without trying: Yes How much weight loss: Unsure Nutrition Risks: No Nutritional Risk Patient : No : No Poor oral hygiene: No service: No Current occupational status: unemployed Cognitive needs: No Hearing needs: No Vision needs: No Meds Allergies Allergy/AdvReac Type Severity Reaction Status Date / Time No Known Allergies (No Known Allergy Verified 09/30/25 11:36 Allergies*) Active Medications: Current Medications Acetaminophen (Acetaminophen 325 Mg Tablet) 650 mg PO Q6H PRN PRN Reason: Pain, Mild 1-3,fever,headache Alprazolam (Alprazolam 0.5 Mg Tablet) 1 mg PO TID PRN PRN Reason: Anxiety Calcium Carbonate (Calcium Carbonate 750 Mg Tab.Chew) 750 mg PO Q4H PRN PRN Reason: Heartburn Cyclobenzaprine HCl (Cyclobenzaprine Hcl 5 Mg Tablet) 5 mg PO BEDTIME PRN PRN Reason: Muscle Spasm Last Admin: 10/02/25 21:51 Dose: 5 mg Furosemide (Furosemide 40 Mg/4 Ml Vial) 40 mg IVPUSH BID@0900,1800 [facility]; Protocol Last Admin: 10/02/25 17:49 Dose: 40 mg Heparin Sodium (Porcine) (Heparin Sodium,Porcine 5,000 Unit/Ml Vial) 5,000 unit SUBCUT Q8H [facility] Last Admin: 10/03/25 05:03 Dose: 5,000 unit Magnesium Hydroxide (Milk Of Magnesia 30 Ml Oral.Susp) 30 ml PO DAILY PRN PRN Reason: Constipation Melatonin (Melatonin 3 Mg Tablet) 6 mg PO BEDTIME PRN PRN Reason: Insomnia Nicotine (Nicotine 21 Mg Patch.Td24) 21 mg TRANSDERMA DAILY [facility] Last Admin: 10/02/25 08:35 Dose: 21 mg Nicotine Polacrilex (Nicotine Polacrilex Lozenge 2 Mg Lozenge) 2 mg BUCCAL Q2H PRN PRN Reason: Nicotine Cravings Omeprazole (Omeprazole 20 Mg Capsule.Dr) 20 mg PO BID@0630,1630 [facility] Last Admin: 10/03/25 05:04 Dose: 20 mg Sodium Chloride (0.9 % Sodium Chloride Flush 3 Ml Syringe) 3 ml IVFLUSH QSHIFT [facility] Last Admin: 10/03/25 00:00 Dose: 3 ml Spironolactone (Spironolactone 25 Mg Tablet) 25 mg PO DAILY [facility]; Protocol Last Admin: 10/02/25 13:11 Dose: 25 mg Trazodone HCl (Trazodone Hcl 50 Mg Tablet) 50 mg PO BEDTIME PRN PRN Reason: for insomnia Last Admin: 10/02/25 21:51 Dose: 50 mg Home Medications ?Medication ?Instructions ?Recorded ?Confirmed ?Last Taken ?Type pantoprazole 40 mg tablet,delayed 40 mg PO BID@0630,1630 10/01/25 10/01/25 09/29/25 History release Physical Exam Exam: Exam: EXAM: GENERAL: The patient is well developed and nontoxic. VITAL SIGNS:see workflow HEENT: Nonicteric sclerae, PERRLA, EOMI. Oropharynx clear. Moist mucous membranes. Conjunctivae appear well perfused. No thyroid mass. CHEST: Chest wall is nontender. HEART: Regular rate and rhythm without murmurs. LUNGS: Clear to auscultation bilaterally. ABDOMEN: Soft, positive bowel sounds, nontender--distended , no organomegaly.no flank tenderness SKIN: No rash, no excessive bruising, petechiae, or purpura. NEUROLOGIC: Cranial nerves II-XII intact without motor/sensory deficit. Psych: normal affect muscle wasting in limbs, no tremor Vital Signs: Vital Signs: Last Vital Signs Temp 97.9 F 10/03/25 07:26 Pulse 113 H 10/03/25 07:26 Resp 16 10/03/25 07:26 BP 104/54 L 10/03/25 07:26 Pulse Ox 97 10/03/25 07:26 O2 Del Method Room Air 10/03/25 07:26 O2 Flow Rate 4 10/01/25 00:19 BMI result Body Mass Index 21.6 Results Labs 10/04/25 06:08 10/04/25 06:08 Labs: Short CBC 10/03/25 Range/Units 05:31 WBC 9.6 (4.8-10.8) X10*3/uL Hgb 9.8 L (12.0-16.0) g/dl Hct 27.5 L (37.0-47.0) % Plt Count 141 L (160-400) X10*3/uL BMP 10/03/25 05:31 Sodium 126 L Potassium 3.0 L D Chloride 97 Carbon Dioxide 20 L BUN 18 H Creatinine 1.04 Calcium 8.1 L Liver Function 10/03/25 Range/Units 05:31 Total Bilirubin 1.8 H (0.0-1.0) mg/dL AST 145 H (5-31) U/L ALT 32 H (0-31) U/L Alkaline Phosphatase 155 H (39-117) U/L Albumin 2.3 L (3.5-5.0) g/dL Assessment and Plan (1) Alcoholic cirrhosis of liver with ascites: Status: Acute Plan 1/ Hyponatremia due to disturbance of renin angiotensin system from relative renal hypoperfusion and low albumin due to decompensated cirrhosis, not really improving with diuretics PLAN: 1/ Can consider using midodrine and adding albumin 25% 1g/kg in divided doses for 3 d and see if improves, consider holding diuretics, replace K and maximize Mag Procedures Date of Service Date of Service: 10/04/25
[2025-10-03] MEDS: Furosemide 40 MG/4 ML VIAL IVPUSH ×2 (08:00→17:33)
[2025-10-03] MEDS: 0.9 % Sodium Chloride Flush 3 ML SYRINGE IVFLUSH ×4 (08:01→20:35)
[2025-10-03] MEDS: Potassium Chloride Packet 20 MEQ PACKET 40 MEQ PO (11:30)
[2025-10-03] MEDS: Magnesium Sulfate/H2O 2 GM/50 ML PIGGYBACK IV (11:30)
[2025-10-03 11:52] VITALS: BP 100/60; PULSE 101; RESP 16; TEMP 36.8; O2SAT 94
--- NOTE | 2025-10-03 13:02 | HO.PM.IMPN ---
Subjective Subjective Date of Service: 10/03/25 Interval History: seen and examined this morning follow up hyponatremia tolerating diet, no specific complaints this am sodium remains low Constitutional Constitutional: Denies chills and Denies fever(s) Respiratory Respiratory: Denies cough Gastrointestinal Gastrointestinal: Denies abdominal pain, Denies nausea and Denies vomiting Physical Exam Vital Signs: Vital Signs: Last Vital Signs Temp 98.2 F 10/03/25 11:52 Pulse 101 H 10/03/25 11:52 Resp 16 10/03/25 11:52 BP 100/60 10/03/25 11:52 Pulse Ox 94 10/03/25 11:52 O2 Del Method Room Air 10/03/25 11:52 O2 Flow Rate 4 10/01/25 00:19 BMI result Body Mass Index 21.6 Const: General: cooperative, comfortable, no acute distress, alert and awake Nutritional Appearance: average body habitus Orientation/consciousness: patient oriented x3 Resp: Effort & Inspection: normal respiratory effort, able to speak in complete sentences, no respiratory distress and no use of accessory muscles Cardio: Rate: regular rate GI: Inspection: No distended Palpation (GI): Soft to palpation Neuro: General: patient oriented x3, moves all extremities and CN's II-XI intact bilaterally Objective Data Active Medications Acetaminophen (Acetaminophen 325 Mg Tablet) 650 mg PO Q6H PRN PRN Reason: Pain, Mild 1-3,fever,headache Alprazolam (Alprazolam 0.5 Mg Tablet) 1 mg PO TID PRN PRN Reason: Anxiety Calcium Carbonate (Calcium Carbonate 750 Mg Tab.Chew) 750 mg PO Q4H PRN PRN Reason: Heartburn Cyclobenzaprine HCl (Cyclobenzaprine Hcl 5 Mg Tablet) 5 mg PO BEDTIME PRN PRN Reason: Muscle Spasm Last Admin: 10/02/25 21:51 Dose: 5 mg Documented By: JORGE Furosemide (Furosemide 40 Mg/4 Ml Vial) 40 mg IVPUSH BID@0900,1800 [facility]; Protocol Last Admin: 10/03/25 08:00 Dose: 40 mg Documented By: DARION Heparin Sodium (Porcine) (Heparin Sodium,Porcine 5,000 Unit/Ml Vial) 5,000 unit SUBCUT Q8H [facility] Last Admin: 10/03/25 12:49 Dose: 5,000 unit Documented By: DARION Magnesium Sulfate (Magnesium Sulfate/H2o) 2 gm in 50 mls @ 25 mls/hr IV ONCE ONE Stop: 10/03/25 13:15 Last Admin: 10/03/25 11:30 Dose: 25 mls/hr Documented By: DARION Magnesium Hydroxide (Milk Of Magnesia 30 Ml Oral.Susp) 30 ml PO DAILY PRN PRN Reason: Constipation Melatonin (Melatonin 3 Mg Tablet) 6 mg PO BEDTIME PRN PRN Reason: Insomnia Nicotine (Nicotine 21 Mg Patch.Td24) 21 mg TRANSDERMA DAILY [facility] Last Admin: 10/03/25 08:00 Dose: Not Given Documented By: DARION Non-Admin Reason: Patient Refused Nicotine Polacrilex (Nicotine Polacrilex Lozenge 2 Mg Lozenge) 2 mg BUCCAL Q2H PRN PRN Reason: Nicotine Cravings Omeprazole (Omeprazole 20 Mg Capsule.Dr) 20 mg PO BID@0630,1630 [facility] Last Admin: 10/03/25 05:04 Dose: 20 mg Documented By: JORGE Sodium Chloride (0.9 % Sodium Chloride Flush 3 Ml Syringe) [facility] Last Admin: 10/03/25 08:01 Dose: 3 ml Documented By: DARION Spironolactone (Spironolactone 25 Mg Tablet) 25 mg PO DAILY [facility]; Protocol Last Admin: 10/03/25 08:00 Dose: 25 mg Documented By: DARION Trazodone HCl (Trazodone Hcl 50 Mg Tablet) 50 mg PO BEDTIME PRN PRN Reason: for insomnia Last Admin: 10/02/25 21:51 Dose: 50 mg Documented By: JORGE Labs 10/03/25 05:31 10/03/25 05:31 Labs: Laboratory Results - last 24 hr 10/02/25 10/03/25 15:08 05:31 MCV 97.5 MCH 34.8 H MCHC 35.6 H RDW 13.7 Plt Count 141 L MPV 11.7 Immature Gran % (Auto) 0.5 H Neut % (Auto) 49.3 Lymph % (Auto) 35.0 [place] % (Auto) 12.6 H Eos % (Auto) 2.0 Baso % (Auto) 0.6 Lymph # (Auto) 3.4 [place] # (Auto) 1.2 Eos # (Auto) 0.2 Baso # (Auto) 0.1 Abs Immat Gran (auto) 0.05 H Absolute Neuts (auto) 4.7 Absolute Nucleated RBC 0.000 Nucleated RBC % (auto) 0.0 PT 19.0 H INR 1.6 H Anion Gap 12 Estim Creat Clear Calc 54.6 Estimated GFR 56 Random Glucose 106 Calcium 8.1 L Magnesium 1.8 Total Bilirubin 1.8 H AST 145 H ALT 32 H Alkaline Phosphatase 155 H Total Protein 7.1 Albumin 2.3 L Urine Opiates Screen Not Detected Ur Buprenorphine Scrn Not Detected Ur Oxycodone Screen Not Detected Urine Methadone Screen Not Detected Urine Fentanyl Screen Not Detected Ur Barbiturates Screen Not Detected Ur Phencyclidine Scrn Not Detected Ur Amphetamines Screen Not Detected U Benzodiazepines Scrn Not Detected Urine Cocaine Screen Not Detected U Marijuana (THC) Screen Not Detected Assessment and Plan (1) Acute hyponatremia: Status: Acute Plan This is a 50 yo female with a pmhx significant for AUD ( 10 nips/day (started drinking at age 11 yrs) , etoh cirrhosis, tobacco use and anxiety/depression, who presented to the ED from GI office as she was hal for Qmonday weekly paracentesis and was noted to have acute hypoNa and sent to ED. Hyponatremia acute on chronic Nephrology following- due to poor perfusion of the kidney secondary to cirrhotic pathology in conjunction with poor oral intake goal 127 prior to discharge Limit dietary na 2Gm, fluid restriction continue lasix, aldactone as per nephrology rec follow BMP EOTH liver cirrhosis/abdominal ascites/gastric varices s/p removal of 4.8 L by IR 10/02. continue baseline weekly paracentesis after discharge LFTs appear to be at baseline outpatient follow up with GI Prior AUD Denies current etoh use Will check Tox and alc screen CIWA has remained low GERD cont home meds Tobacco use disorder smoking cessation advised nicotine replacement urinary retention dash removed and passed voiding trial dvt ppx- heparin PT eval patient ambulating at baseline, does not need PT services Disposition-we will continue monitoring Q 6 hours for sodium and likely we will need 1-2 days Quality Stroke Does the patient have a stroke diagnosis?: No VTE Prior VTE?: No VTE Risk Level:: Medical - moderate - high VTE Device Contraindication: Treatment Not Indicated VTE Drug Contraindication: N/A - Med Ordered
--- NOTE | 2025-10-03 14:56 | PM.PNNEP ---
Subjective Subjective Date of Service: 10/03/25 Interval history: Sodium slightly better 126 this morning Physical Exam Vital Signs: Vital Signs: Last Vital Signs Temp 98.2 F 10/03/25 11:52 Pulse 101 H 10/03/25 11:52 Resp 16 10/03/25 11:52 BP 100/60 10/03/25 11:52 Pulse Ox 94 10/03/25 11:52 O2 Del Method Room Air 10/03/25 11:52 O2 Flow Rate 4 10/01/25 00:19 BMI result Body Mass Index 21.6 General: not in any acute distress, ill appearing Nutritional Appearance: well nourished and overweight Eyes: appearance normal, both eyes and all related structures; Alignment and Position: alignment normal and position normal Neck: No lymphadenopathy, no thyromegaly Resp: bilateral air entry equal, no added sounds present Cardio: Regular rate, regular rhythm; Heart sounds: S1 normal heart sound present and S2 normal heart sound present GI: soft, nontender, ascites present no guarding, no hepatosplenomegaly : bladder normal to inspection, bladder normal to palpation, no renal angle tenderness Skin: no rashes or lesions noted and elasticity normal Neuro: alert, oriented x 3, moves all extremities Objective Data Labs 10/03/25 05:31 10/03/25 05:31 Labs: Laboratory Results - last 24 hr 10/02/25 10/03/25 15:08 05:31 WBC 9.6 RBC 2.82 L Hgb 9.8 L Hct 27.5 L MCV 97.5 MCH 34.8 H MCHC 35.6 H RDW 13.7 Plt Count 141 L MPV 11.7 Immature Gran % (Auto) 0.5 H Neut % (Auto) 49.3 Lymph % (Auto) 35.0 [place] % (Auto) 12.6 H Eos % (Auto) 2.0 Baso % (Auto) 0.6 Lymph # (Auto) 3.4 [place] # (Auto) 1.2 Eos # (Auto) 0.2 Baso # (Auto) 0.1 Abs Immat Gran (auto) 0.05 H Absolute Neuts (auto) 4.7 Absolute Nucleated RBC 0.000 Nucleated RBC % (auto) 0.0 PT 19.0 H INR 1.6 H Sodium 126 L Potassium 3.0 L D Chloride 97 Carbon Dioxide 20 L Anion Gap 12 BUN 18 H Creatinine 1.04 Estim Creat Clear Calc 54.6 Estimated GFR 56 Random Glucose 106 Calcium 8.1 L Magnesium 1.8 Total Bilirubin 1.8 H AST 145 H ALT 32 H Alkaline Phosphatase 155 H Total Protein 7.1 Albumin 2.3 L Urine Opiates Screen Not Detected Ur Buprenorphine Scrn Not Detected Ur Oxycodone Screen Not Detected Urine Methadone Screen Not Detected Urine Fentanyl Screen Not Detected Ur Barbiturates Screen Not Detected Ur Phencyclidine Scrn Not Detected Ur Amphetamines Screen Not Detected U Benzodiazepines Scrn Not Detected Urine Cocaine Screen Not Detected U Marijuana (THC) Screen Not Detected Procedures Date of Service Date of Service: 10/03/25 Assessment & Plan Assessment and plan (1) Acute hyponatremia: Status: Acute (2) Alcoholic cirrhosis of liver with ascites: Status: Acute Plan Acute hyponatremia: Cirrhosis of liver: Patient is hyponatremia secondary to poor perfusion of the kidney secondary to cirrhotic physiology along with poor oral intake. Would avoid salt loading because it would lead to further water retention and worsen or ascites Sodium is up to 126, continue Lasix 40 mg IV b.i.d. along with spironolactone 25 mg. Blood pressures are soft, can not increase the dose of spironolactone. Upon discharge switch lasix to oral. Increase the free water restriction to less than 1.2 L everyday, I guess patient is still drinking more fluids because of which the sodium up trend is slow. Patient's last alcohol intake was more than a month ago, needs frequent paracentesis every Tuesday. Time Spent With Patient Time: Total time managing care of this patient today ____ minutes. Progress Note: Quality Stroke Does the patient have a stroke diagnosis?: No
[2025-10-03 15:27] VITALS: BP 112/69; PULSE 101; RESP 16; TEMP 36.8; O2SAT 99
[2025-10-03 19:50] VITALS: BP 107/60; PULSE 104; RESP 19; TEMP 36.6; O2SAT 100
[2025-10-03 23:45] VITALS: BP 103/59; PULSE 104; RESP 18; TEMP 37.6; O2SAT 95
[2025-10-04] VITALS (7 sets, daily range): BP systolic 87–104; BP diastolic 46–59; PULSE 100–110; RESP 18–20; TEMP 36.7–36.9; O2SAT 92–98
[2025-10-04 06:54] LABS: Hematocrit 29.3 % (37.0-47.0); Hemoglobin 10.4 g/dl (12.0-16.0); Imm Gran Abs Auto 0.05 X10*3/uL (0.00-0.03); Imm Gran Pct Auto 0.4 % (0.0-0.4); Lymphocytes Absolute Auto 4.3 X10*3/uL (1.2-4.9); MANUAL DIFF FLAG SCAN; Mean Corpuscular HGB Conc 35.5 g/dl (31.0-35.0); Mean Corpuscular Hemoglobin 34.8 pg (27.0-33.0); Mean Corpuscular Volume 98.0 fL (80.0-98.0); NRBC Abs Auto 0.000 X10*3/uL (0.0-0.012); NRBC Pct Auto 0.0 /100WBC (0.0-0.2); Platelet Count 162 X10*3/uL (160-400); Red Blood Count 2.99 X10*6/uL (4.20-5.50); SCAN SMEAR FLAG 1; White Blood Count 12.0 X10*3/uL (4.8-10.8)
[2025-10-04 07:05] LABS: INTERNATIONAL NORM RATIO 1.6 (0.9-1.1); Prothrombin Time 18.8 SEC (11.2-13.5)
[2025-10-04 07:24] LABS: Alanine Aminotransferase 33 U/L (0-31); Albumin Level 2.5 g/dL (3.5-5.0); Alkaline Phosphatase 159 U/L (39-117); Anion Gap 12 (12-20); Aspartate Amino Transferase 152 U/L (5-31); Blood Urea Nitrogen 19 mg/dL (9-16); Calcium 8.5 mg/dL (8.4-10.2); Carbon Dioxide 21 mmol/L (22-29); Chloride 95 mmol/L (96-108); Creatinine Clr Calc Pharmacy 52.6; Estimated Glomerular Filt Rate 53; Magnesium 2.2 mg/dL (1.6-2.6); Potassium 3.1 mmol/L (3.3-5.1); Sodium 125 mmol/L (135-145); Total Protein 7.5 g/dL (6.5-8.0)
[2025-10-04] MEDS: 0.9 % Sodium Chloride Flush 3 ML SYRINGE IVFLUSH ×3 (07:49→21:50)
[2025-10-04] MEDS: Albumin Human 25 % 100 ML IV ×3 (10:19→21:49)
[2025-10-04] MEDS: Milk of Magnesia 30 ML ORAL.SUSP PO (10:23)
--- NOTE | 2025-10-04 10:23 | MHC.CM.PN ---
Per ROUNDS, Patient is not yet medically cleared for dc (Na went down).
--- NOTE | 2025-10-04 11:25 | P.PNNP_ITS ---
Subjective Subjective Date of Service: 10/04/25 Interval history: Lying in the bed this morning. She states she has been eating a lot of ice and not much water Sodium stated 125 this morning Physical Exam 2 Vital Signs: Vital Signs: Last Vital Signs Temp 98.0 F 10/04/25 08:00 Pulse 105 H 10/04/25 08:00 Resp 19 10/04/25 03:45 BP 93/52 L 10/04/25 07:25 Pulse Ox 95 10/04/25 08:00 O2 Del Method Room Air 10/04/25 08:00 O2 Flow Rate 4 10/01/25 00:19 BMI result Body Mass Index 21.6 General: not in any acute distress, ill appearing Nutritional Appearance: well nourished and overweight Eyes: appearance normal, both eyes and all related structures; Alignment and Position: alignment normal and position normal Neck: No lymphadenopathy, no thyromegaly Resp: bilateral air entry equal, no added sounds present Cardio: Regular rate, regular rhythm; Heart sounds: S1 normal heart sound present and S2 normal heart sound present GI: soft, nontender, ascites increased in size when compared to yesterday, no guarding, no hepatosplenomegaly : bladder normal to inspection, bladder normal to palpation, no renal angle tenderness Skin: no rashes or lesions noted and elasticity normal Neuro: alert, oriented x 3, moves all extremities Objective Data Labs 10/04/25 06:08 10/04/25 06:08 Labs: Laboratory Results - last 24 hr 10/04/25 06:08 WBC 12.0 H RBC 2.99 L Hgb 10.4 L Hct 29.3 L MCV 98.0 MCH 34.8 H MCHC 35.5 H RDW 13.5 Plt Count 162 MPV 11.5 Immature Gran % (Auto) 0.4 Neut % (Auto) 49.5 Lymph % (Auto) 35.9 [place] % (Auto) 12.0 H Eos % (Auto) 1.6 Baso % (Auto) 0.6 Lymph # (Auto) 4.3 [place] # (Auto) 1.4 H Eos # (Auto) 0.2 Baso # (Auto) 0.1 Abs Immat Gran (auto) 0.05 H Absolute Neuts (auto) 5.9 Absolute Nucleated RBC 0.000 Nucleated RBC % (auto) 0.0 Smear Tech's Comments VERIFIED PT 18.8 H INR 1.6 H Sodium 125 L Potassium 3.1 L Chloride 95 L Carbon Dioxide 21 L Anion Gap 12 BUN 19 H Creatinine 1.08 Estim Creat Clear Calc 52.6 Estimated GFR 53 Random Glucose 105 Calcium 8.5 Magnesium 2.2 Total Bilirubin 2.0 H AST 152 H ALT 33 H Alkaline Phosphatase 159 H Total Protein 7.5 Albumin 2.5 L Procedures Date of Service Date of Service: 10/04/25 Assessment & Plan Assessment and plan (1) Cirrhosis: Status: Acute (2) Hyponatremia with excess extracellular fluid volume: Status: Acute Plan Acute hyponatremia: Cirrhosis of liver: Patient is hyponatremia secondary to poor perfusion of the kidney secondary to cirrhotic physiology along with increased ice intake. Would avoid salt loading because it would lead to further water retention and worsen or ascites Sodium 125, blood pressures drop dropped this morning making Lasix difficult. We will give her albumin 25 g q.6 hours to improve the renal perfusion and followed by Lasix for diuresis b.i.d.. Increase the free water restriction to less than 1.2 L everyday, patient is still eating a lot of ice but not drink water because of which sodium is not improving much Patient's last alcohol intake was more than a month ago, needs frequent paracentesis every Tuesday. Time Spent With Patient Time: Total time managing care of this patient today ____ minutes. Progress Note: Quality Stroke Does the patient have a stroke diagnosis?: No
[2025-10-04] MEDS: Potassium Chloride Packet 20 MEQ PACKET 40 MEQ PO (11:34)
--- NOTE | 2025-10-04 12:29 | P.PNIM_ITS ---
Subjective Subjective Date of Service: 10/04/25 Interval History: seen and examined this morning sodium remains low no abdominal pain Constitutional Constitutional: Denies chills Physical Exam 2 Vital Signs: Vital Signs: Last Vital Signs Temp 98.2 F 10/04/25 11:43 Pulse 106 H 10/04/25 11:43 Resp 18 10/04/25 11:43 BP 95/57 L 10/04/25 11:43 Pulse Ox 94 10/04/25 11:43 O2 Del Method Room Air 10/04/25 11:43 O2 Flow Rate 4 10/01/25 00:19 BMI result Body Mass Index 21.6 Const: General: cooperative, comfortable, no acute distress, alert and awake Nutritional Appearance: average body habitus Orientation/consciousness: p atient oriented x3 Resp: Effort & Inspection: normal respiratory effort, able to speak in complete sentences, no respiratory distress and no use of accessory muscles Cardio: Rate: regular rate GI: Inspection: No distended Palpation (GI): Soft to palpation Neuro: General: patient oriented x3, moves all extremities and CN's II-XI intact bilaterally Objective Data Active Medications Acetaminophen (Acetaminophen 325 Mg Tablet) 650 mg PO Q6H PRN PRN Reason: Pain, Mild 1-3,fever,headache Alprazolam (Alprazolam 0.5 Mg Tablet) 1 mg PO TID PRN PRN Reason: Anxiety Last Admin: 10/03/25 20:34 Dose: 1 mg Documented By: LANG Calcium Carbonate (Calcium Carbonate 750 Mg Tab.Chew) 750 mg PO Q4H PRN PRN Reason: Heartburn Cyclobenzaprine HCl (Cyclobenzaprine Hcl 5 Mg Tablet) 5 mg PO BEDTIME PRN PRN Reason: Muscle Spasm Last Admin: 10/03/25 20:37 Dose: 5 mg Documented By: LANG Furosemide (Furosemide 40 Mg/4 Ml Vial) 40 mg IVPUSH BID@0900,1800 [facility]; Protocol On Hold: 10/04/25 11:36 Last Admin: 10/04/25 11:37 Dose: Not Given Documented By: DARION Non-Admin Reason: Physician Held Med Heparin Sodium (Porcine) (Heparin Sodium,Porcine 5,000 Unit/Ml Vial) 5,000 unit SUBCUT Q8H [facility] Last Admin: 10/04/25 05:46 Dose: 5,000 unit Documented By: LANG Albumin Human (Kedbumin 25 %) 100 mls @ 100 mls/hr IV Q6H [facility] Stop: 10/05/25 04:59 Last Infusion: 10/04/25 11:19 Dose: Infused Documented By: DARION Magnesium Hydroxide (Milk Of Magnesia 30 Ml Oral.Susp) 30 ml PO DAILY PRN PRN Reason: Constipation Last Admin: 10/04/25 10:23 Dose: 30 ml Documented By: DARION Melatonin (Melatonin 3 Mg Tablet) 6 mg PO BEDTIME PRN PRN Reason: Insomnia Nicotine (Nicotine 21 Mg Patch.Td24) 21 mg TRANSDERMA DAILY [facility] Last Admin: 10/04/25 07:25 Dose: Not Given Documented By: DARION Non-Admin Reason: Patient Refused Nicotine Polacrilex (Nicotine Polacrilex Lozenge 2 Mg Lozenge) 2 mg BUCCAL Q2H PRN PRN Reason: Nicotine Cravings Omeprazole (Omeprazole 20 Mg Capsule.) 20 mg PO BID@0630,1630 [facility] Last Admin: 10/04/25 05:49 Dose: 20 mg Documented By: LANG Sodium Chloride (0.9 % Sodium Chloride Flush 3 Ml Syringe) 3 ml IVFLUSH QSHIFT [facility] Last Admin: 10/04/25 07:49 Dose: 3 ml Documented By: DARION Spironolactone (Spironolactone 25 Mg Tablet) 25 mg PO DAILY [facility]; Protocol On Hold: 10/04/25 10:27 Last Admin: 10/04/25 07:26 Dose: Not Given Documented By: DARION Non-Admin Reason: Physician Held Med Trazodone HCl (Trazodone Hcl 50 Mg Tablet) 50 mg PO BEDTIME PRN PRN Reason: for insomnia Last Admin: 10/03/25 20:37 Dose: 50 mg Documented By: LANG Labs 10/04/25 06:08 10/04/25 06:08 Labs: Laboratory Results - last 24 hr 10/04/25 06:08 MCV 98.0 MCH 34.8 H MCHC 35.5 H RDW 13.5 Plt Count 162 MPV 11.5 Immature Gran % (Auto) 0.4 Neut % (Auto) 49.5 Lymph % (Auto) 35.9 [place] % (Auto) 12.0 H Eos % (Auto) 1.6 Baso % (Auto) 0.6 Lymph # (Auto) 4.3 [place] # (Auto) 1.4 H Eos # (Auto) 0.2 Baso # (Auto) 0.1 Abs Immat Gran (auto) 0.05 H Absolute Neuts (auto) 5.9 Absolute Nucleated RBC 0.000 Nucleated RBC % (auto) 0.0 Smear Tech's Comments VERIFIED PT 18.8 H INR 1.6 H Anion Gap 12 Estim Creat Clear Calc 52.6 Estimated GFR 53 Random Glucose 105 Calcium 8.5 Magnesium 2.2 Total Bilirubin 2.0 H AST 152 H ALT 33 H Alkaline Phosphatase 159 H Total Protein 7.5 Albumin 2.5 L Assessment and Plan (1) Alcoholic cirrhosis of liver with ascites: Status: Acute (2) Acute hyponatremia: Status: Acute Plan This is a 50 yo female with a pmhx significant for AUD ( 10 nips/day (started drinking at age 11 yrs) , etoh cirrhosis, tobacco use and anxiety/depression, who presented to the ED from GI office as she was hal for Qmonday weekly paracentesis and was noted to have acute hypoNa and sent to ED. Hyponatremia acute on chronic Nephrology following- due to poor perfusion of the kidney secondary to cirrhotic pathology in conjunction with poor oral intake goal 127 prior to discharge Limit dietary na 2Gm, fluid restriction due to low bp will hold diuretics for today getting albumin follow BMP EOTH liver cirrhosis/abdominal ascites/gastric varices s/p removal of 4.8 L by IR 10/02. continue baseline weekly paracentesis after discharge LFTs appear to be at baseline outpatient follow up with GI Prior AUD Denies current etoh use Will check Tox and alc screen CIWA has remained low GERD cont home meds Tobacco use disorder smoking cessation advised nicotine replacement urinary retention dash removed and passed voiding trial dvt ppx- heparin PT eval patient ambulating at baseline, does not need PT services patient requires ongoing inpatient stay for close monitoring of sodium levels Quality Stroke Does the patient have a stroke diagnosis?: No VTE Prior VTE?: No VTE Risk Level:: Medical - moderate - high VTE Device Contraindication: Treatment Not Indicated VTE Drug Contraindication: N/A - Med Ordered
--- NOTE | 2025-10-04 18:07 | PC.NURSE ---
At 1700 pt retaining; bladder scanned the patient for 611 mLs. MD notified; str.cath attempted x 2 but unable to obtain any urine output; pt reports increase discomfort with each time; MD made aware; Urology consulted, per urology and MD, purewick placed and pt to be monitored overnight for urine output. Urology will follow up in the morning; Pyridium PRN given for discomfort/pain; plan of care ongoing;
--- NOTE | 2025-10-04 18:36 | PC.NURSE ---
At 1700 pt retaining; bladder scanned the patient for 611 mLs. MD notified; str.cath attempted x 2 with small splash/amount of urine; less than 10mLs urine; pt reports increase discomfort with each time; MD made aware; Urology consulted, per urology and MD, purewick placed and pt to be monitored overnight for urine output. Urology will follow up in the morning; Pyridium PRN given for discomfort/pain; plan of care ongoing;
[2025-10-05 03:26] VITALS: BP 95/54; PULSE 102; RESP 18; TEMP 37.4; O2SAT 95
[2025-10-05] MEDS: Albumin Human 25 % 100 ML IV (04:25)
[2025-10-05 08:00] VITALS: BP 99/52; PULSE 101; RESP 19; TEMP 36.7; O2SAT 96
[2025-10-05 08:13] LABS: Alanine Aminotransferase 23 U/L (0-31); Albumin Level 3.9 g/dL (3.5-5.0); Alkaline Phosphatase 102 U/L (39-117); Anion Gap 12 (12-20); Aspartate Amino Transferase 95 U/L (5-31); Blood Urea Nitrogen 17 mg/dL (9-16); Calcium 9.0 mg/dL (8.4-10.2); Carbon Dioxide 22 mmol/L (22-29); Chloride 98 mmol/L (96-108); Creatinine Clr Calc Pharmacy 58.0; Estimated Glomerular Filt Rate 60; Potassium 3.5 mmol/L (3.3-5.1); Sodium 128 mmol/L (135-145); Total Protein 7.0 g/dL (6.5-8.0)
[2025-10-05] MEDS: 0.9 % Sodium Chloride Flush 3 ML SYRINGE IVFLUSH (08:53)
--- NOTE | 2025-10-05 10:06 | PM.DS ---
DS: Providers Provider Date of Service: 10/05/25 Date of admission: 09/30/25 21:26 Date of discharge: 10/05/25 Primary care physician: Joan Tadeo MD Consults: 09/30/25 21:39 Consult to Nephrology Routine Consulting Provider: [facility] Reason for consultation: hyponatremia 10/01/25 04:41 Consult to Urology Routine Consulting Provider: [facility] Reason for consultation: urine retension 10/02/25 13:52 Consult to Gastroenterology Routine Consulting Provider: [facility] Reason for consultation: etoh cirrhosis DS: Diagnosis Discharge Diagnosis (1) Alcoholic cirrhosis of liver with ascites: Status: Acute DS: Summary Hospital Course Hospital Course: from initial hpi: 50-year-old female with a past medical history of alcoholic liver disease, liver cirrhosis, history of hyponatremia, esophageal varices, anxiety, depression, GERD, peptic ulcer disease; ascites receiving periodic paracentesis; presented to the hospital today with a chief complaint of generalized weakness. Patient reports that she has. Paracentesis done every Tuesday. She went to the hospital for scheduled paracentesis and has had labs done; noted to have sodium level of 124. Patient was asked to go to the ER for further evaluation. Patient reports decreased appetite. Denies any fevers or chills. Reports mild abdominal discomfort secondary to the distention from ascites. Review of all other systems is negative except mentioned above ER course: Per ER team, patient noted abdominal distention consistent with ascites. Sodium levels were 124 initially given 2 L of IV fluids follow up sodium levels improved to 127. hospital course: Patient was admitted for acute on chronic hyponatremia related to alcoholic liver cirrhosis. Was treated with fluid restriction, IV Lasix, sodium improved to 128. Some degree of chronic hyponatremia as expected. Should continue to be monitored as outpatient follow up with Nephrology and Gastroenterology. On discharge we will continue Lasix for symptomatic ascites. She follows for weekly paracentesis. Time Attestation Discharge Coordination Time (in mins): 34 Quality: Safe Use of Opioids Does Pt have an Active Cancer Diagnosis on the Problem List?: No Quality: Stroke Does the patient have a stroke diagnosis?: No Physical Exam Vital Signs: Vital Signs: Last Vital Signs Temp 98.0 F 10/05/25 08:00 Pulse 101 H 10/05/25 08:00 Resp 19 10/05/25 08:00 BP 99/52 L 10/05/25 08:00 Pulse Ox 96 10/05/25 08:00 O2 Del Method Room Air 10/05/25 08:00 O2 Flow Rate 4 10/01/25 00:19 BMI result Body Mass Index 21.6 Const: General: cooperative, comfortable, no acute distress, alert and awake Nutritional Appearance: average body habitus Orientation/consciousness: patient oriented x3 Resp: Effort & Inspection: normal respiratory effort, able to speak in complete sentences, no respiratory distress and no use of accessory muscles Cardio: Rate: regular rate GI: Inspection: No distended Palpation (GI): Soft to palpation Neuro: General: patient oriented x3, moves all extremities and CN's II-XI intact bilaterally DS: Data Data Completed and Pending Completed studies during hospitalization [Text1]: Procedures Detoxification Services for Substance Abuse Treatment (02/03/24) Drainage of Peritoneal Cavity, Percutaneous Approach (09/06/25) Excision of Duodenum, Via Natural or Artificial Opening Endoscopic, Diagnostic (09/06/25) Excision of Stomach, Pylorus, Via Natural or Artificial Opening Endoscopic, Diagnostic (09/06/25) Occlusion of Esophageal Vein with Extraluminal Device, Via Natural or Artificial Opening Endoscopic (09/06/25) Labs on day of discharge: Laboratory Results - last 24 hr 10/05/25 06:54 Hold Purple Top SEE NOTE Sodium 128 L Potassium 3.5 Chloride 98 Carbon Dioxide 22 Anion Gap 12 BUN 17 H Creatinine 0.98 Estim Creat Clear Calc 58.0 Estimated GFR 60 Random Glucose 101 Calcium 9.0 Total Bilirubin 2.4 H AST 95 H ALT 23 Alkaline Phosphatase 102 Total Protein 7.0 Albumin 3.9 Discharge Plan Discharge Anticipated Discharge Date/Time: 10/05/25 09:56 Patient Disposition: Home, Self-Care Discharge Diagnosis: Hyponatremia Referrals: Joan Torres MD [Primary Care Provider, Internal Medicine] - 1 Week Discharge Medications: New furosemide [Lasix] 40 mg tablet 40 mg PO DAILY Qty: 90 0RF Continued trazodone 50 mg tablet 50 mg PO BEDTIME PRN (Reason: for insomnia) 90 Days Qty: 90 1RF cyclobenzaprine 5 mg tablet 5 mg PO BEDTIME PRN (Reason: muscle spasm) Qty: 20 0RF alprazolam 1 mg tablet 1 mg PO TID PRN (Reason: anxiety) Qty: 86 0RF pantoprazole 40 mg tablet,delayed release (DR/EC) 40 mg PO BID@0630,1630 Discharge Orders: Discharge Order (Routine); Ordered 10/05/25 Ordered By: Ayaz Delgado Diet: fluid restrict 1.2L Activity on Discharge: As tolerated Stand Alone Forms: Patient Portal Discharge page Print Language: Yi Care Plan Goals: recovery Health Concerns: hypoantremia Plan of Treatment: start lasix, fluid restrict 1.2L, some chronic hyponatremia is expected, conitnue weekly paracenteses, follow up with gi and nephro Assessment: see above
--- NOTE | 2025-10-05 10:19 | MHC.CM.PN ---
SECOND IMM GIVEN 10/05. PATIENT IS MEDICALLY CLEARED FOR DISCHARGE HOME SELF-CARE, SHE WILL TRANSPORT HOME VIA [facility] TODAY.
[2025-10-07 10:45] LABS: Alcohol, Ethyl Urine Screen NEGATIVE
== END 2025-10-05 11:18 | disposition home or self-care (01) | DRG 432 ==
LOC: HO.ED 21:33 → HO.EDOVER 21:37 → HO.IMC 10-01 09:26
PROVIDERS: Emergency Medicine; Student in an Organized Health Care Education/Training Program; Admitting Provider Hospitalist; Emergency Provider Student in an Organized Health Care Education/Training Program; PCP Internal Medicine; Visit Provider Internal Medicine
DX: K70.31 Alcoholic cirrhosis of liver with ascites (principal); K76.7 Hepatorenal syndrome; E87.1 Hypo-osmolality and hyponatremia; I86.4 Gastric varices; K21.9 Gastro-esophageal reflux disease without esophagitis; R33.9 Retention of urine, unspecified; F10.91 Alcohol use, unspecified, in remission; F17.210 Nicotine dependence, cigarettes, uncomplicated; Z71.6 Tobacco abuse counseling; Z79.899 Other long term (current) drug therapy
CPT/HCPCS: 36415; 49083; 80048; 80053; 80307; 82570; 82803; 83735; 83930; 83935; 84300; 85025; 85610; 97161; 99285; C1729; J1308; J1644; J1938; J2003; J2470; J3475; P9047

== ENCOUNTER 2025-09-30 21:26 | Outpatient (BNV) | payer MEDICARE, MEDICAID, SELFPAY | END 2025-10-01 15:08 | PROVIDERS: Admitting Provider Hospitalist; Emergency Provider Student in an Organized Health Care Education/Training Program; PCP Internal Medicine | DX: K74.60 Unspecified cirrhosis of liver (principal) | CPT/HCPCS: 49083 ==

== ENCOUNTER → 2025-09-30 21:26 | Outpatient (BNV) | payer MEDICARE, MEDICAID, SELFPAY | PROVIDERS: Admitting Provider Hospitalist; Emergency Provider Student in an Organized Health Care Education/Training Program; PCP Internal Medicine; Visit Provider Student in an Organized Health Care Education/Training Program | DX: E87.1 Hypo-osmolality and hyponatremia (principal) | CPT/HCPCS: 99222; 99232; 99239 ==

== ENCOUNTER → 2025-09-30 21:26 | Outpatient (BNV) | payer MEDICARE, MEDICAID, SELFPAY | PROVIDERS: Admitting Provider Hospitalist; Emergency Provider Student in an Organized Health Care Education/Training Program; PCP Internal Medicine; Visit Provider Internal Medicine Gastroenterology | DX: K70.31 Alcoholic cirrhosis of liver with ascites (principal) | CPT/HCPCS: 99223 ==

== ENCOUNTER → 2025-09-30 21:26 | Outpatient (BNV) | payer MEDICARE, MEDICAID, SELFPAY | PROVIDERS: Admitting Provider Hospitalist; Emergency Provider Student in an Organized Health Care Education/Training Program; PCP Internal Medicine; Visit Provider Internal Medicine Critical Care Medicine | DX: E87.1 Hypo-osmolality and hyponatremia (principal) | CPT/HCPCS: 99223; 99232; 99233 ==

== ENCOUNTER 2025-10-07 08:21 | Day surgery (SDC) | payer MEDICARE, MEDICAID, SELFPAY ==
--- NOTE | ~2025-10-07 | US_ITS ---
EXAMINATION: US GUIDED PARACENTESIS CLINICAL INFORMATION: Ascites COMPARISON: Previous exam most recent October 01, 2025 TECHNIQUE: Procedure and risks and benefits including bleeding, infection and low blood pressure were discussed with the patient and informed consent was obtained. The left lower quadrant was prepped and draped in the usual sterile fashion. The skin and soft tissues were anesthetized with 1% lidocaine plain. Using ultrasound guidance and a 5 Faroese Yueh needle, access to the ascitic fluid was obtained. 3.3 L of clear yellow fluid was removed. No diagnostic specimen was sent. FINDINGS: There is a moderate amount of ascites. US/US paracentesis abd w/image IMPRESSION: Ultrasound-guided paracentesis. Electronically signed by: Annalisa Draper MD 10/07/2025 01:41 PM [facility]
[2025-10-07 08:37] VITALS: BMI 21.3
[2025-10-07 08:49] VITALS: BP 109/67; PULSE 113; RESP 20; TEMP 36.7; O2SAT 99
[2025-10-07 10:20] VITALS: BP 97/41; PULSE 106; RESP 18; TEMP 36.6; O2SAT 97
[2025-10-07 10:30] VITALS: BP 92/46; PULSE 106; RESP 18; TEMP 36.6; O2SAT 97
[2025-10-07] MEDS: Lidocaine HCl 1 % MPF 5 ML VIAL SUBCUT (10:42)
[2025-10-07 10:45] VITALS: BP 93/45; PULSE 108; RESP 18; O2SAT 98
[2025-10-07 11:00] VITALS: BP 90/46; PULSE 106; RESP 18; O2SAT 98
[2025-10-07 11:15] VITALS: BP 98/67; PULSE 101; RESP 18; TEMP 36.6; O2SAT 98
== END 2025-10-07 11:26 | disposition home or self-care (01) ==
PROVIDERS: Radiology Diagnostic Radiology; PCP Internal Medicine; Visit Provider Internal Medicine Gastroenterology
DX: K70.31 Alcoholic cirrhosis of liver with ascites (principal); N17.9 Acute kidney failure, unspecified
CPT/HCPCS: 49083; J2003

== ENCOUNTER → 2025-10-07 09:35 | Outpatient (BNV) | payer MEDICARE, MEDICAID, SELFPAY | PROVIDERS: PCP Internal Medicine; Visit Provider Radiology Diagnostic Radiology | DX: R18.8 Other ascites (principal) | CPT/HCPCS: 49083 ==

== ENCOUNTER 2025-10-14 08:14 | Day surgery (SDC) | payer MEDICARE, MEDICAID, SELFPAY ==
--- NOTE | ~2025-10-14 | US_ITS ---
EXAMINATION: US GUIDED PARACENTESIS CLINICAL INFORMATION: Ascites. Therapeutic drainage. COMPARISON: 10/07/2025. 10/01/2025. TECHNIQUE: Risks and benefits and possible complications were discussed with the patient and informed consent was obtained. A safe pocket of ascitic fluid in the right lower quadrant was identified using ultrasound guidance, and the overlying skin was marked, prepped and draped in sterile fashion. 1% lidocaine was used as a local anesthetic. Using ultrasound guidance, a 5 fr Yueh catheter was placed into the ascitic pocket. Subsequently, 3.9 liters of yellow clear fluid was removed passively via vacuum bottle. The catheter was then removed. The patient tolerated the procedure well. There were no immediate complications. A few accounts payable representative images from before and after the examination were obtained. US/US paracentesis abd w/image IMPRESSION: Ultrasound-guided paracentesis as described above. Passive drainage of 3.9 L of clear yellow ascitic fluid from the peritoneal cavity. No immediate complications Electronically signed by: Roverto Lozano MD 10/14/2025 11:13 AM [facility]
[2025-10-14 08:28] VITALS: BMI 20.9
[2025-10-14 08:33] VITALS: BP 113/66; PULSE 106; RESP 18; TEMP 37.2; O2SAT 100
[2025-10-14 08:38] LABS: MANUAL DIFF FLAG NO
[2025-10-14 08:40] LABS: Hematocrit 27.2 % (37.0-47.0); Hemoglobin 9.6 g/dl (12.0-16.0); Imm Gran Abs Auto 0.03 X10*3/uL (0.00-0.03); Imm Gran Pct Auto 0.3 % (0.0-0.4); Lymphocytes Absolute Auto 2.8 X10*3/uL (1.2-4.9); Mean Corpuscular HGB Conc 35.3 g/dl (31.0-35.0); Mean Corpuscular Hemoglobin 34.8 pg (27.0-33.0); Mean Corpuscular Volume 98.6 fL (80.0-98.0); NRBC Abs Auto 0.000 X10*3/uL (0.0-0.012); NRBC Pct Auto 0.0 /100WBC (0.0-0.2); Platelet Count 189 X10*3/uL (160-400); Red Blood Count 2.76 X10*6/uL (4.20-5.50); White Blood Count 10.5 X10*3/uL (4.8-10.8)
[2025-10-14 08:47] LABS: INTERNATIONAL NORM RATIO 1.4 (0.9-1.1); Prothrombin Time 16.7 SEC (11.2-13.5)
[2025-10-14 09:18] LABS: Anion Gap 13 (12-20); Blood Urea Nitrogen 17 mg/dL (9-16); Calcium 8.8 mg/dL (8.4-10.2); Carbon Dioxide 22 mmol/L (22-29); Chloride 95 mmol/L (96-108); Creatinine Clr Calc Pharmacy 63.8; Estimated Glomerular Filt Rate > 60; Potassium 2.8 mmol/L (3.3-5.1); Sodium 127 mmol/L (135-145)
--- NOTE | 2025-10-14 09:27 | PC.NURSE ---
critical potassium value 2.8 reported to RN. RN reported to Dr Draper, who states pt is okay to proceed with paracentesis.
[2025-10-14 10:20] VITALS: BP 97/67; PULSE 101; RESP 16; TEMP 37.1; O2SAT 98
[2025-10-14] MEDS: Lidocaine HCl 1 % MPF 5 ML VIAL SUBCUT (10:30)
[2025-10-14 10:35] VITALS: BP 105/54; PULSE 104; RESP 14; O2SAT 96
[2025-10-14 10:50] VITALS: BP 100/53; PULSE 103; RESP 15; O2SAT 98
[2025-10-14 11:28] VITALS: BP 101/56; PULSE 101; RESP 18; TEMP 36.9; O2SAT 96
== END 2025-10-14 11:47 | disposition home or self-care (01) ==
LOC: HO.SSS 08:15
PROVIDERS: Radiology Diagnostic Radiology; PCP Internal Medicine; Visit Provider Internal Medicine Gastroenterology
DX: K70.31 Alcoholic cirrhosis of liver with ascites (principal); K72.90 Hepatic failure, unspecified without coma
CPT/HCPCS: 36415; 49083; 80048; 85025; 85610; J2003

== ENCOUNTER → 2025-10-14 09:37 | Outpatient (BNV) | payer MEDICARE, MEDICAID, SELFPAY | PROVIDERS: PCP Internal Medicine; Visit Provider Radiology Diagnostic Radiology | DX: R18.8 Other ascites (principal) | CPT/HCPCS: 49083 ==

== ENCOUNTER 2025-10-22 11:59 | Day surgery (SDC) | payer MEDICARE, MEDICAID, SELFPAY ==
--- OUTSIDE RECORDS SUMMARY | 2025-09-19 10:16 | XMS_ITS | Encounter Summary ---
Author Organization [facility] Address [address] [place] [phone] Phone Care Team Providers Care Medical Geneticist Name Role Phone Joan Torres MD Primary Care Provid er Encounter Details Date Type Department Care Team (Late st Contact Info) Description 06/27/2023 Procedure Pass [facility], Ct Scan - [address] [address] Social History Tobacco Use Types Packs/Day Years [...] 2:05 AM EDT Marcie Jernigan RN * [place] Suicide Severity Rating Scale (Screener/Recent Self-Report) Question [...] on filedocumented in this encounter Care Teams Medical Geneticist Relationship Specialty Start Date End Date Joan Torres MD [address] [place] [address] PCP - General Internal Medicine 06/27/23 documented as of this encounter Additional Source Comments The information contained in this document represents components of the legal health record. It is not the complete legal health record.[facility]
--- OUTSIDE RECORDS SUMMARY | 2025-09-19 10:16 | XMS_ITS | Encounter Summary ---
Author Organization [facility] Address [address] [place] [phone] Phone Care Team Providers Care Scale And Skip Car Operator Name Role Phone Joan Torres MD Primary Care Provid er Encounter Details Date Type Department Care Team (Late st Contact Info) Description 06/27/2023 Procedure Pass [facility], Ct Scan - [address] [address] Social History Tobacco Use Types Packs/Day Years [...] 2:05 AM EDT Marcie Jernigan RN * [place] Suicide Severity Rating Scale (Screener/Recent Self-Report) Question [...] on filedocumented in this encounter Care Teams Scale And Skip Car Operator Relationship Specialty Start Date End Date Joan Torres MD [address] [place] [address] PCP - General Internal Medicine 06/27/23 documented as of this encounter Additional Source Comments The information contained in this document represents components of the legal health record. It is not the complete legal health record.[facility]
--- OUTSIDE RECORDS SUMMARY | 2025-09-19 10:17 | XMS_ITS | Clinical Summary ---
Author Organization [facility] Address [address] [place] [phone] Phone Care Team Providers Care Clinical Education Manager Name Role Phone Joan Torres MD Primary [...] topic Medical Devices Not on file Insurance [facility] MEDIC[facility] PART [facility] & B [facility] B [place] [facility] PART A & B [facility] MEDIC[facility] PART A & B [facility] MEDIC[facility] PART A & B Care Teams Clinical Education Manager Relationship Specialty Start Date End Date Joan Torres MD [address] [place] [address] PCP - General Internal Medicine 06/27/23 Additional Source Comments The information contained in this document represents components of the legal health record. It is not the complete legal health record.[facility]
[2025-10-22] VITALS (7 sets, daily range): BP systolic 90–114; BP diastolic 52–66; PULSE 98–103; RESP 16–18; TEMP 36.6–36.7; O2SAT 96–100; BMI 21.1
--- NOTE | ~2025-10-22 | US_ITS ---
EXAMINATION: US GUIDED PARACENTESIS CLINICAL INFORMATION: Cirrhosis of liver, abdominal ascites. COMPARISON: Ultrasound-guided paracentesis 10/14/2025 TECHNIQUE: Following explaining ultrasound-guided paracentesis procedure, benefits and risk, a written consent was obtained. Patient was placed supine and preliminary ultrasound imaging was obtained through the abdomen. An optimal site was selected along the right lower quadrant and marked. The marked site was cleaned and draped in usual sterile manner. 1% lidocaine was injected at puncture site. Through a small skin incision a 5 Setswana Knowta catheter was advanced from the skin into the peritoneal space. After observing fluid return, stylet was removed and catheter connected to vacuum bottle via connecting cannula. After obtaining all fluid and observing no more fluid return, catheter was withdrawn and complete hemostasis achieved at puncture site. Patient tolerated procedure extremely well. Sterile dressing applied post procedure. FINDINGS: On preliminary ultrasound imaging there is small amount of free fluid in the abdomen. Approximately 3.2 L of fluid was drained from right lower quadrant. None of this fluid was sent to lab. US/US paracentesis abd w/image IMPRESSION: Successful ultrasound-guided paracentesis performed without immediate complications. Electronically signed by: Humberto Covarrubias MD 10/23/2025 07:34 AM [facility]
[2025-10-22 13:18] LABS: Alanine Aminotransferase 22 U/L (0-31); Albumin Level 2.6 g/dL (3.5-5.0); Alkaline Phosphatase 126 U/L (39-117); Aspartate Amino Transferase 86 U/L (5-31); Blood Urea Nitrogen 19 mg/dL (9-16); Calcium 9.1 mg/dL (8.4-10.2); Creatinine Clr Calc Pharmacy 56.2; Estimated Glomerular Filt Rate 58; Total Protein 7.2 g/dL (6.5-8.0)
[2025-10-22 13:27] LABS: Anion Gap 12 (12-20); Carbon Dioxide 23 mmol/L (22-29); Chloride 97 mmol/L (96-108); Potassium 2.9 mmol/L (3.3-5.1); Sodium 129 mmol/L (135-145)
--- NOTE | 2025-10-22 13:37 | PC.NURSE ---
Dr. Covarrubias updated regarding patient lab results on 10/14/25. New lab orders placed today preop. Dr. Covarrubias updated regarding results of sodium and potassium today. Dr. Covarrubias stated okay for patient to have procedure today. will re-assess post procedure as needed. Dr. Eckert also updated as well.
[2025-10-22] MEDS: Lidocaine HCl 1 % 20 ML VIAL 5 ML SUBCUT (14:45)
[2025-10-22] MEDS: Potassium Chloride ER 20 MEQ TAB.ER.PRT 60 MEQ PO (14:49)
[2025-10-22] MEDS: Potassium Chloride/H20 10 MEQ/100 ML PIGGYBACK 100 MEQ IV (14:50)
== END 2025-10-22 15:58 | disposition home or self-care (01) ==
PROVIDERS: Radiology Diagnostic Radiology; PCP Internal Medicine; Visit Provider Internal Medicine Gastroenterology
DX: K70.31 Alcoholic cirrhosis of liver with ascites (principal)
CPT/HCPCS: 36415; 49083; 80053; J2003; J3480

== ENCOUNTER → 2025-10-22 12:48 | Outpatient (BNV) | payer MEDICARE, MEDICAID, SELFPAY | PROVIDERS: PCP Internal Medicine; Visit Provider Radiology Diagnostic Radiology | DX: K74.60 Unspecified cirrhosis of liver (principal) | CPT/HCPCS: 49083 ==

== ENCOUNTER 2025-10-28 11:51 | Day surgery (SDC) | payer MEDICARE, MEDICAID, SELFPAY ==
[2025-10-26 11:18] VITALS: BMI 21.3
--- NOTE | ~2025-10-28 | US_ITS ---
EXAMINATION: US GUIDED PARACENTESIS CLINICAL INFORMATION: Ascites COMPARISON: Previous exams most recently October 22, 2025 TECHNIQUE: Procedure risks and benefits including bleeding, infection and low blood pressure were discussed with the patient informed consent was obtained. The right lower quadrant was prepped and draped in the usual sterile fashion. The skin and soft tissues were anesthetized lidocaine plain. Using ultrasound guidance and a 5 Georgian Yueh needle, access to the ascitic fluid was obtained. 4.4 L of clear yellow fluid was removed. No diagnostic specimen. FINDINGS: There is a large amount of ascites. US/US paracentesis abd w/image IMPRESSION: Ultrasound-guided paracentesis. Electronically signed by: Annalisa Draper MD 10/28/2025 03:08 PM [facility] [place]
[2025-10-28 11:52] VITALS: BP 110/56; PULSE 99; RESP 18; TEMP 36.6; O2SAT 97
--- NOTE | 2025-10-28 12:44 | PC.NURSE ---
dr blanc aware of fall right rib and groin pain no new orders. also aware patient labs results were low last week potassium and sodium. okay to repeat lytes per dr blanc pt lung sound clear no able to move all extremities neuros intact denies loc pt sts pain mostly abd from increase fluid no bruising noted to rib areaor groin
[2025-10-28 13:22] LABS: Anion Gap 9 (12-20); Carbon Dioxide 22 mmol/L (22-29); Chloride 100 mmol/L (96-108); Potassium 4.4 mmol/L (3.3-5.1); Sodium 127 mmol/L (135-145)
--- NOTE | 2025-10-28 14:16 | PC.NURSE ---
ns 250ml bolus for na [address] guanaco barclay
[2025-10-28 15:00] VITALS: BP 100/45; PULSE 102; RESP 16; TEMP 36.6; O2SAT 98
[2025-10-28] MEDS: Lidocaine HCl 1 % MPF 5 ML VIAL SUBCUT (15:07)
[2025-10-28 15:20] VITALS: BP 91/41; PULSE 104; RESP 16; O2SAT 98
[2025-10-28 15:56] VITALS: BP 100/45; PULSE 102; RESP 16; TEMP 37.3; O2SAT 97
== END 2025-10-28 16:01 | disposition home or self-care (01) ==
PROVIDERS: Radiology Diagnostic Radiology; PCP Internal Medicine; Visit Provider Internal Medicine Gastroenterology
DX: K70.31 Alcoholic cirrhosis of liver with ascites (principal); E87.1 Hypo-osmolality and hyponatremia; I85.00 Esophageal varices without bleeding; F32.A Depression, unspecified; F41.9 Anxiety disorder, unspecified; K21.9 Gastro-esophageal reflux disease without esophagitis; F17.210 Nicotine dependence, cigarettes, uncomplicated; Z56.0 Unemployment, unspecified; Z79.899 Other long term (current) drug therapy
CPT/HCPCS: 36415; 49083; 80051; J2003

== ENCOUNTER → 2025-10-28 12:39 | Outpatient (BNV) | payer MEDICARE, MEDICAID, SELFPAY | PROVIDERS: PCP Internal Medicine; Visit Provider Radiology Diagnostic Radiology | DX: R18.8 Other ascites (principal) | CPT/HCPCS: 49083 ==